=== PATIENT | female | born 1980 | race Caucasian/White ===

== ENCOUNTER → 2017-12-26 08:08 | Outpatient (CLI) | payer OTHER, SELFPAY ==
[2017-12-26 09:28] LABS: Absolute Lymphocyte Count 2.11 X10^3/ul (0.83-4.51); Absolute Neutrophil Count 4.4 X10^3/uL (2.0-7.7); Basophil# 0.01 X10^3/uL; Basophil% 0.1 % (0-1); Eosinophils% 1.4 % (0-5); Hematocrit 36.4 % (37-47); Hemoglobin 12.1 g/dl (12.0-15.0); Lymphocyte # 2.11 X10^3/ul (4.0); Lymphocyte % 29.4 % (19-41); Mean Corp Hgb Conc 33.2 g/gl (32-36); Mean Corpuscular Hgb 29.5 pg (27.0-32.0); Mean Corpuscular Volume 88.8 fL (81-99); Mean Platelet Vol. 10.5 fl (6.2-12.0); Monocyte# 0.53 X10^3/uL; Monocyte% 7.4 % (0-10); Neutrophil # 4.41 X10^3/uL (2.7-7.7); Neutrophil % 61.6 % (47-70); Platelet Count 295 K/mm3 (150-450); RBC Distribution Width CV 12.5 % (11.6-14.6); RBC Distribution Width SD 39.1 fl (35.1-43.9); White Blood Count 7.2 K/mm3 (4.4-11.0)
[2017-12-26 09:31] LABS: POSITIVE COUNT NO; POSITIVE DIFFERENTIAL NO; POSITIVE MORPHOLOGY NO
[2017-12-26 10:07] LABS: AST(SGOT) 47 U/L (15-37); Alanine Aminotransfer ALT/SGPT 31 U/L (13-56); Albumin, Serum 3.5 g/dL (3.2-5.0); Alkaline Phosphatase 64 U/L (45-117); Bilirubin, Direct < 0.05 mg/dL (0.00-0.30); Globulin 3.8 g/dL (2.2-4.2); Protein, Total 7.3 g/dL (6.4-8.2)
== END ==
PROVIDERS: Family Provider Internal Medicine; PCP Internal Medicine; Visit Provider Dermatology
DX: Z79.899 Other long term (current) drug therapy (principal); L30.1 Dyshidrosis [pompholyx]
CPT/HCPCS: 36415; 80076; 85025

== ENCOUNTER → 2018-04-12 13:48 | Outpatient (CLI) | payer OTHER, SELFPAY ==
[2018-04-18 15:11] LABS: HPV Reflexed? NOT INDICATED
== END ==
PROVIDERS: Family Provider Internal Medicine; PCP Internal Medicine; Visit Provider Obstetrics & Gynecology
DX: Z12.4 Encounter for screening for malignant neoplasm of cervix (principal)
CPT/HCPCS: 88175; G0145

== ENCOUNTER → 2018-05-08 06:56 | Outpatient (CLI) | payer OTHER, SELFPAY ==
--- NOTE | 2018-05-08 06:40 | BI_ITS ---
MAMMOGRAPHY - BILATERAL SCREENING REASON FOR EXAM: Female, 37 years old. Routine annual screening examination. PERTINENT HISTORY: Grandmother with breast cancer. TECHNIQUE: Digital bilateral breast mono (3D mammographic acquisition) in the CC and MLO projections. 2-D mediolateral oblique (MLO) and craniocaudad (CC) views of both breasts were obtained. CAD: Full Field Digital Mammography with Computer Added Detection was performed. COMPARISON: None. Baseline examination. FINDINGS: Breast Composition: The breasts are heterogeneously dense, which may obscure small masses. There are no dominant masses or suspicious calcifications. No other significant abnormalities are identified. BI/SCREENING MAMM (CAD), BILAT IMPRESSION: Negative screening mammogram. Yearly followup mammogram recommended. (A) ASSESSMENT CATEGORY: BIRADS Category 1: Negative. A letter regarding these results will be sent to the patient by the facility within 30 days. Approximately 10% of breast cancers are not detected by mammography. A normal mammogram should not delay biopsy of a clinically suspicious abnormality. [id number] Electronically Signed: Chas Rooney MD at 8:26 EDT Tel [phone], Service support ,
== END ==
PROVIDERS: Family Provider Internal Medicine; PCP Internal Medicine; Referring Provider Obstetrics & Gynecology; Visit Provider Obstetrics & Gynecology
DX: Z12.31 Encounter for screening mammogram for malignant neoplasm of breast (principal)
CPT/HCPCS: 77063; 77067

== ENCOUNTER → 2018-06-05 10:27 | Outpatient (CLI) | payer OTHER, SELFPAY ==
--- NOTE | 2018-06-05 10:45 | MRI_ITS ---
STUDY: BILATERAL BREAST MR WITHOUT AND WITH CONTRAST REASON FOR EXAM: Female, 37 years old. History of breast cancer in grandmother. Dense breasts on mammography. TECHNIQUE: Multi-sequence multi-echo imaging of both breasts was performed with a dedicated breast coil. T1-weighted and T2-weighted images were performed before the administration of contrast. T1-weighted images were also performed after the administration of 18 mL of Dotarem contrast intravenously without complications. COMPARISON: Bilateral mammograms dated May 08, 2018. FINDINGS: RIGHT BREAST: The breast tissue is fatty with no background enhancement. There are no abnormal enhancing masses or areas of non-mass enhancement in the right breast. LEFT BREAST: The breast tissue is fatty with no background enhancement. There are no abnormal enhancing masses or areas of non-mass enhancement in the left breast. There are no enlarged or abnormal lymph nodes. There is no abnormality in the visualized regions of the chest or liver. MRI/Breast w/o and/or W Cont Bilat IMPRESSION: No abnormality noted on the breast MRI examination with contrast. CATEGORY: BIRADS Category 1: Negative. A letter regarding these results will be sent to the patient by the facility within 30 days. Electronically Signed: Ricky George MD at 12:10 EDT , Service support ,
== END ==
PROVIDERS: Family Provider Internal Medicine; PCP Internal Medicine; Referring Provider Obstetrics & Gynecology; Visit Provider Obstetrics & Gynecology
DX: R92.2 Inconclusive mammogram (principal)
CPT/HCPCS: 77059; C8908

== ENCOUNTER → 2018-12-24 12:14 | Outpatient (CLI) | payer OTHER, SELFPAY ==
--- NOTE | 2018-12-24 12:21 | RAD_ITS ---
STUDY: X-RAY - PELVIS AND LEFT HIP REASON FOR EXAM: Female, 38 years old. Pain, decreased range of motion TECHNIQUE: 3 views of the pelvis and hip. COMPARISON: None. FINDINGS: There is a non-specific bowel gas pattern. Normal visualized soft tissue structures. Normal bilateral iliac wings, sacroiliac joints and visualized sacrum. Normal bilateral superior and inferior pubic rami. Normal pubic symphysis. Normal bilateral ischial tuberosities. Normal visualized femoral head. Normal acetabulum. Normal hip joint. RAD/HIP, UNI W/ Pelvis 2-3 Views IMPRESSION: Normal x-ray examination of the pelvis and hip. Electronically Signed: Oz Patiño MD at 14:51 EDT , Service support ,
== END ==
PROVIDERS: Family Provider Internal Medicine; PCP Internal Medicine; Visit Provider Internal Medicine
DX: M25.552 Pain in left hip (principal)
CPT/HCPCS: 73502

== ENCOUNTER → 2019-02-21 | Outpatient (CLI) | payer OTHER, SELFPAY ==
[2019-02-21 12:40] LABS: Absolute Lymphocyte Count 1.19 X10^3/ul (0.83-4.51); Absolute Neutrophil Count 4.3 X10^3/uL (2.0-7.7); Basophil# 0.01 X10^3/uL; Basophil% 0.2 % (0-1); Eosinophil# 0.07 X10^3/uL; Eosinophils% 1.1 % (0-5); Hematocrit 42.7 % (37-47); Hemoglobin 14.7 g/dl (12.0-15.0); Lymphocyte # 1.19 X10^3/ul (4.0); Lymphocyte % 18.4 % (19-41); Mean Corp Hgb Conc 34.4 g/gl (32-36); Mean Corpuscular Hgb 29.2 pg (27.0-32.0); Mean Corpuscular Volume 84.7 fL (81-99); Mean Platelet Vol. 10.7 fl (6.2-12.0); Monocyte# 0.86 X10^3/uL; Monocyte% 13.3 % (0-10); Neutrophil # 4.33 X10^3/uL (2.7-7.7); Neutrophil % 66.8 % (47-70); Platelet Count 241 K/mm3 (150-450); RBC Distribution Width CV 12.6 % (11.6-14.6); Red Blood Count 5.04 M/mm3 (4.2-5.4); White Blood Count 6.5 K/mm3 (4.4-11.0)
[2019-02-21 12:54] LABS: ALB/GLOB Ratio 0.8 RATIO (0.9-2.4); AST(SGOT) 56 U/L (15-37); Alanine Aminotransfer ALT/SGPT 47 U/L (13-56); Albumin, Serum 3.4 g/dL (3.2-5.0); Alkaline Phosphatase 84 U/L (45-117); Anion Gap 9 (5-15); BUN 11 mg/dL (7-18); BUN/Creat Ratio 12.1 RATIO (10-20); Chloride 108 mmol/L (98-107); Creatinine, Serum 0.91 mg/dL (0.55-1.02); EST Glomerular Filtration Rate 75 mL/min (>60); Est Glom Filt Rate - Afr Amer 90 mL/min (>60); Globulin 4.1 g/dL (2.2-4.2); Glucose 88 mg/dL (74-106); Potassium 3.4 mmol/L (3.5-5.1); Protein, Total 7.5 g/dL (6.4-8.2); Sodium Level 139 mmol/L (136-145)
[2019-02-21 12:57] LABS: POSITIVE COUNT NO; POSITIVE DIFFERENTIAL NO; POSITIVE MORPHOLOGY NO
== END | disposition home or self-care (01) ==
PROVIDERS: Family Provider Internal Medicine; PCP Internal Medicine; Referring Provider Nurse Practitioner Gerontology; Visit Provider Nurse Practitioner Gerontology
DX: R19.7 Diarrhea, unspecified (principal)
CPT/HCPCS: 36415; 80053; 82274; 83630; 85025; 87177; 87209; 87493; 87506

== ENCOUNTER 2019-03-25 14:30 | Outpatient (RCR) | payer OTHER, SELFPAY ==
--- NOTE | 2019-01-02 09:53 | HP.PTEVAL_ITS ---
Patient's Visit Information DAVID DON is a 38 year old F referred to Physical Therapy by Rachel Lo DO with a diagnosis of L hip pain. Date of Evaluation: 01/02/19 Physical Therapist: Calvin Murdock DPT, OCS, CSCS - Visit Plan Frequency: 1-3x/week Duration: 4-6 Weeks Plan: weekly to start to progress home stretches (add ITB) adn hip stabs(clamshells, SLR abd ext, SL bicycle, inchworms etc.) Increase to 3xweek for rollout and stretch and in clinic strength . - Subjective Findings: L hip has hurt forever. Went to doctor for migraines. X rays were normal. Doctor thinks it is muscle imbalance. Pain is laterally at hip , intermittent, insisdious onset but worsening frequency. Worse with burpees, worse with crossing L over Right. Sationary bike and rwoer hurt. 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 No sitting at work. Pain lingers into evening. Lying on that side at night can hurt at times. Basic ADLs are fine. They can hurt but no problem. Chiropractor has helped short term. - Pain L lateral hip Pain Intensity (Out of 10): 0 Pain Intensity Range: 0, 4 - Objective Walks normal, trasnffers normal, steps normal without pain today. - hip scour. Tightness in external rotatiors of hip, Some pain /stretchy end range of ext rotationa dn internal rotation transiently. Piriformis mod tight, ITB min tight L. 2/3 reflexes patella and achilles. Sensation LE WNL to gross light touch. Strength ankels and knees 4+/5, hip abd L 4-, ext 3+, add 5/5, flexion 4/5 all without pain in neutral position. No tenderness in soft tissue of hip. LB AROM WFL and without pain. - Goals Goal 1:: Pt I in appropriate hip stretches and strength to abolish pain. Goal Time Frame: 4-6 Weeks Goal 2:: Patient able to squat fully without pain to do burpees comfortably Goal Time Frame: 4-6 Weeks Goal 3:: Pt feel 90% back to normal with activity Goal Time Frame: 4-6 Weeks - Rehabilitation Potential Physical Therapy Diagnosis: L hip pain. Likely muscle tightness adn imbalance. Rehabilitation Potential: Good - Anticipated Interventions Patient/Client Instruction: Educate patient on: Condition For the Purpose of:: To decrease pain, To increase tolerance to activity/condition/position, To improve ability of physical actions for home/community/work/leisure Therapeutic Exercise to Include: Strength training, Flexibilty training, Passive ROM, Active ROM For the Purpose of:: To decrease pain, To increase tolerance to activity/condition/position, To improve gait and locomotor functions Thank you for the opportunity to evaluate your patient. For Medicare and Medicare HMO plans, please review the plan of care and approve it. It will need to be FAXED BACK to us at [phone] for Medicare purposes. For Medicare only, by signing this I certify the plan of care. Please let me know if there are questions or concerns regarding this plan of care. Physician Signature: Date:
--- NOTE | 2019-03-25 14:44 | HP.PTDCSUM ---
HP - PT D/C Summary It has been my pleasure to treat DAVID DON under orders from Rachel Lo DO, for the diagnosis of L hip pain for a total of 4 visit(s). Discharge Date: 03/25/19 Please see the following information for a summary of their discharge status. - Subjective Subjective: Been doing well with exercises. Current exercises. No hip pain in the last two weeks. Getting stronger. Other activities normal. No f/u scheduled. - Pain L lateral hip Pain Intensity (Out of 10): 0 - Overall Improvement % Improvement: 99 - Objective Objective/Function: Full aROM B hips without limitations. Strength L hip is 4+/5 without pain. Full squat today without pain or hesitation. Unwilling to do a burpee today. - Goals Goal 1:: Pt I in appropriate hip stretches and strength to abolish pain. Goal Progress: Goal Met Goal 2:: Patient able to squat fully without pain to do burpees comfortably Goal Progress: Goal Met Goal 3:: Pt feel 90% back to normal with activity Goal Progress: Goal Met - Plan Plan: d/c - D/C Information Discharge Comments: Normal acitviity and no pain. I in continued HEP. If there are questions or concerns regarding this patient's physical therapy, please feel free to call me at [phone]. Thank you for the referral of this patient. Sincerely, Calvin Murdock, DPT, OCS, CSCS
== END 2019-03-25 19:00 | disposition home or self-care (01) ==
LOC: PT 14:30
PROVIDERS: Family Provider Internal Medicine; PCP Internal Medicine; Referring Provider Internal Medicine; Visit Provider Internal Medicine
DX: M25.552 Pain in left hip (principal); M62.9 Disorder of muscle, unspecified
CPT/HCPCS: 97110; 97161; 97530

== ENCOUNTER → 2019-05-02 | Outpatient (CLI) | payer OTHER, SELFPAY ==
[2019-05-03 14:08] LABS: CHOLESTEROL TOTAL 230 mg/dL (100-199); HDL-C 51 mg/dL (>39); HDL-P TOTAL 35.8 umol/L (>=30.5); SMALL LDL-P 1319 nmol/L (<=527); TRIGLYCERIDES 115 mg/dL (0-149)
[2019-05-03 16:19] LABS: INSULIN RESISTANCE SCORE 65 (<=45); LDL SIZE 20.6 nm (>20.5); LDL-C 156 mg/dL (0-99); LDL-P 2319 nmol/L (<1000)
== END | disposition home or self-care (01) ==
LOC: MTLAB 10:14
PROVIDERS: Family Provider Internal Medicine; PCP Internal Medicine; Referring Provider Internal Medicine; Visit Provider Internal Medicine
DX: Z11.51 Encounter for screening for human papillomavirus (HPV) (principal); Z13.220 Encounter for screening for lipoid disorders; Z01.419 Encounter for gynecological examination (general) (routine) without abnormal findings
CPT/HCPCS: 36415; 80061; 83704

== ENCOUNTER → 2019-05-02 | Outpatient (CLI) | payer OTHER, SELFPAY ==
[2019-05-08 12:11] LABS: HPV HC, High Risk Negative (Negative)
== END | disposition home or self-care (01) ==
PROVIDERS: Family Provider Internal Medicine; PCP Internal Medicine; Referring Provider Internal Medicine; Visit Provider Internal Medicine
DX: Z11.51 Encounter for screening for human papillomavirus (HPV) (principal)
CPT/HCPCS: 87624; 88175; G0145

== ENCOUNTER → 2019-12-24 | Outpatient (CLI) | payer OTHER, SELFPAY ==
--- NOTE | 2019-12-24 16:16 | RAD_ITS ---
STUDY: X-RAY - RIGHT KNEE REASON FOR EXAM: Female, 39 years old. Right knee pain, hyperextended knee getting down off a gate today, medial knee pain, swelling posterior TECHNIQUE: 4 view(s) of the knee. COMPARISON: None. FINDINGS: Normal visualized distal femur. Normal visualized proximal tibia and fibula. Normal proximal tibiofibular articulation. There is minimal narrowing of the medial compartment. Normal lateral femorotibial compartment. On the sunrise view there is a widened appearance of the medial aspect of the patellofemoral space. There is multiple soft tissue edema. There is a small joint effusion. RAD/Knee 4 or More Views IMPRESSION: There is a relative widened appearance of medial side of the patellofemoral compartment which may represent possibility of ligamentous injury including the patellar retinaculum. There is a small joint effusion. Could consider further evaluation with MRI for further evaluation to exclude soft tissue ligamentous injury. Electronically Signed: Carina Barton MD at 4:41 EDT Tel , Service support ,
== END | disposition home or self-care (01) ==
LOC: MTRAD 16:14
PROVIDERS: PCP Internal Medicine; Referring Provider Nurse Practitioner; Visit Provider Nurse Practitioner
DX: M25.561 Pain in right knee (principal)
CPT/HCPCS: 73564

== ENCOUNTER → 2019-12-26 | Outpatient (CLI) | payer OTHER, SELFPAY ==
--- NOTE | 2019-12-26 07:28 | MRI_ITS ---
STUDY: MRI LEFT KNEE REASON FOR EXAM: Female, 39 years old. Right knee pain. Pain medially. Injury 3 days ago. TECHNIQUE: Standardized fat and water weighted pulse sequences were obtained in all 3 orthogonal planes. COMPARISON: X-ray dated December 24, 2019.. FINDINGS: Patellofemoral articular cartilage preserved. Lateral compartment articular cartilage preserved. Medial compartment grade 2 cartilage loss. Bone contusion/edema at the posterior lateral tibial corner (sagittal image 8 series 4). No acute fracture. No acute dislocation. No acute bone destruction. Anterior cruciate ligament rupture (sagittal images 14 and 15 series 4). Normal posterior cruciate ligament. Lateral meniscus intact. Medial meniscus intact. Low-grade medial collateral ligament sprain without tear. Moderate volume joint effusion. Moderate-sized leaking popliteal cyst. Mild/moderate soft tissue swelling. Normal distal semimembranosus, gracilis and semitendinosus tendons. Normal proximal tibiofibular articulation. Normal lateral collateral (fibular) ligament. Normal popliteus tendon. Normal biceps femoris tendon. Normal medial and lateral patellar retinaculum. Normal quadriceps tendon. Normal patellar tendon. Normal Hoffa''s fat pad. MRI/Lower Ext Joint Only (Routine) IMPRESSION: ACL tear with corresponding bone contusion Low-grade MCL sprain without tear Medial compartment mild cartilage loss Moderate volume joint effusion, moderate-sized leaking popliteal cyst and soft tissue swelling Electronically Signed: Calvin Warren DO at 8:22 EDT Tel , Service support ,
== END | disposition home or self-care (01) ==
LOC: MRI 07:21
PROVIDERS: PCP Internal Medicine; Referring Provider Nurse Practitioner; Visit Provider Nurse Practitioner
DX: M25.561 Pain in right knee (principal)
CPT/HCPCS: 73721

== ENCOUNTER 2020-01-15 16:30 | Outpatient (RCR) | payer OTHER, SELFPAY ==
--- NOTE | 2019-12-26 08:49 | HP.PTEVAL ---
Patient's Visit Information DAVID DON is a 39 year old F referred to Physical Therapy by MARY Fuller with a diagnosis of R knee pain. Date of Evaluation: 12/25/19 Physical Therapist: Lew Lackey DPT - Visit Plan Frequency: 2x /Week Duration: 4-6 Weeks Plan: I suspect a posssible ACL tear, of a higher level sprain of this ligament. Moslty due to nature of injury. She does not appear to have meniscal involvement. She has some medial joint line pain, but unlikely MCL is involved. Pt. to have MRI tomorrow. In the mean time I suggest ice, elevate, compression (or vaso device) to reduce edema; light ROM working on progressing extension and flexion slowly and quad activation. Pt. has ambulate as tolerated, but to avoid uneven surfaces. Will know more tomorrow after MRI. Progress pending MRI results. - Subjective Pt. is here today for her initial evaluation with diagnosis of R knee pain. Pt. hurt her knee yesterday when she was jumping over a fence and landed on her leg with her knee in hyper extension. Pt. reports feeling a loud pop with instant pain. Pt. reports feeling a little better today, but reports pain is still high and her knee feels unstable when she walks. Pt. denies N/T in her leg. Pt. is able to bear wt. on her leg, but has difficulty with walking. Pt. has been icing and taking anti inflammatories, which has been helping. Pt. is scheduled for an MRI tomorrow. 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 SHe is off today, but plans on going back to work when able. - Pain R knee Pain Intensity (Out of 10): 4 Pain Intensity Range: 2, 8 - Objective POSTURE: Pt. has slight bent knee on R side, painful to fully extend. Tends to wt. shift to L side. PALPATION: Pt. has tenderness alpong medial joint line and in MCL region. Pt. has mild tenderness at popliteal fossa. Pt. has marked edema, but non pitting. NEURO: Pt. has normal finds throughout BLEs. ROM: L Knee- full without issues. R knee- 0-20-85deg. Pt. at end ranges of motion. I am able to progress into extension, but light (empty end feel secondary to pain). MMT: Pt. has decent quad actrviation, 4/5 knee extension and flexion secondary to pain. Normal hip strength. GAIT: Pt. ambulates without AD, but has marked antalgic pattern. Pt. lacks TKE during stance and has minmal knee flexuion during swing phase. - Special Tests R Knee Chelly - Meniscus: Negative R Knee Anterior Drawer - ACL: Negative R Knee Valgus - MCL: Negative R Knee Varus - LCL: Negative Comments: Pt. very gaurded with testing (some ACL laxity, but tights HS right away) - Goals Goal 1:: LTG: Pt. to be I with HEP. Goal 2:: STG: Pt. to have increased ROM of R Knee to 0-0-120deg Goal Time Frame: 2-4 Weeks Goal 3:: STG: Pt. to have decreased edema in R LE. Goal Time Frame: 2-4 Weeks Goal 4:: LTG: Pt. to ambulate with normalized pattern without increase in symptoms. Goal Time Frame: 2-4 Weeks Goal 5:: LTG: Pt. to have increased RLE strength increased by 1/2 grade throughout effected musculature. Goal Time Frame: 4-6 Weeks - Rehabilitation Potential Physical Therapy Diagnosis: Pt. has signs and symptoms consistent with R knee pain. Pt. c/o increased medial joint line pain adn media compartment. Due to mech of injury I would suspect ACL tear without meniscal involvement, but due to HS guarded, special testing was hard to determine. She does not appear to have meniscal pain, but I would suggest ACL pathology. Hard to tell if she has a tear or a sprain of this ligament. MRI tomorrow. Rehabilitation Potential: Fair - Anticipated Interventions Patient/Client Instruction: Educate patient on: Condition, Plan of Care, Risk Factors, Benefits of Fitness Program For the Purpose of:: To improve decision making, To facilitate caregiver knowledge, To improve self management, To prevent re-injury, To improve ability to perform tasks related to life management, To improve tolerance to ADL's Therapeutic Exercise to Include: Strength training, Power training, Body mechanics, Postural training, Flexibilty training, Gait and locomotor training, Passive ROM, Active ROM For the Purpose of:: To decrease pain, To decrease swelling/inflammation, To increase ROM, To improve nutrient delivery to tissue, To increase oxygenation perfusion, To improve muscle performance and motor function, To improve ability to perform ADL's TENS: Yes Cryotherapy (ice pack, ice massage): Yes Vasopneumatic device: Yes For the Purpose of:: To decrease pain, To decrease swelling/inflammation, To increase ROM, To improve nutrient delivery to tissue, To increase oxygenation perfusion Thank you for the opportunity to evaluate your patient. For Medicare and Medicare HMO plans, please review the plan of care and approve it. It will need to be FAXED BACK to us at [phone] for Medicare purposes. For Medicare only, by signing this I certify the plan of care. Please let me know if there are questions or concerns regarding this plan of care. Physician Signature: Date:
--- NOTE | 2020-01-26 11:44 | HP.PT.NRP ---
DAVID DON was seen in my office for initial evaluation on 12/25/19. The following Plan of Care was established for this patient: Initial Frequency: 2x /Week Initial Duration: 4-6 Weeks Patient/Client Instruction: Educate patient on: Condition, Plan of Care, Risk Factors, Benefits of Fitness Program For the Purpose of:: To improve decision making, To facilitate caregiver knowledge, To improve self management, To prevent re-injury, To improve ability to perform tasks related to life management, To improve tolerance to ADL's Therapeutic Exercise to Include: Strength training, Power training, Body mechanics, Postural training, Flexibilty training, Gait and locomotor training, Passive ROM, Active ROM For the Purpose of:: To decrease pain, To decrease swelling/inflammation, To increase ROM, To improve nutrient delivery to tissue, To increase oxygenation perfusion, To improve muscle performance and motor function, To improve ability to perform ADL's TENS: Yes Cryotherapy (ice pack, ice massage): Yes Vasopneumatic device: Yes For the Purpose of:: To decrease pain, To decrease swelling/inflammation, To increase ROM, To improve nutrient delivery to tissue, To increase oxygenation perfusion This patient was last seen in our office 01/15/20. Pertinent comments regarding their Physical therapy will appear below: Pt. was treated for her knee pain. Pt. has an ACL rutpture and is undergoing surgery next week. Pt. will be DC from PT at this point in time. At this point I will be discontinuing this patient from physical therapy. I would be happy to see this patient again in the future if found appropriate by the physician. Thank you! Lew Lackey DPT
== END 2020-01-15 19:00 | disposition home or self-care (01) ==
LOC: PT 16:30
PROVIDERS: PCP Internal Medicine; Referring Provider Nurse Practitioner; Visit Provider Nurse Practitioner
DX: M25.561 Pain in right knee (principal)
CPT/HCPCS: 97016; 97110; 97161

== ENCOUNTER 2020-01-29 06:02 | Day surgery (SDC) | payer OTHER, SELFPAY ==
[2019-12-27 12:23] VITALS: BMI 36.3
--- NOTE | 2020-01-28 14:55 | PCM.HP.BLA ---
History and Physical I have re-examined the patient. There are no clinical changes since date of exam. We discussed the current risk associated COVID-19. While it is understood that there is a community spread of COVID 19 the risk of sarah COVID-19 while at [facility] is very low, however, the risk cannot be completely mitigated because of the community spread of the disease. We discussed in detail the risk of exposure to and or potential harm posed by the COVID-19 virus with having a surgery/procedure at this time versus the risk of delaying the surgery/procedure. Is not possible to know either the risk of delaying the surgery procedure or chance of getting an infection with perfect accuracy, but a joint decision was made to proceed at this time with a schedule surgery/procedure as indicated on the consent form. Patient was notified that we will need to comply with any screening or testing [facility] wishes to perform or that surgery may be delayed for any positive results. Intake Vital Signs 12/27/19 Height 5 ft 6 in 12/27/19 Weight: 225 lb 12/27/19 BMI 36.3 Intake Visit Reasons: RIGHT KNEE Chief Complaint: right knee Accompanied by: self Is patient in pain?: Yes Pain scale (1-10): 5 Allergies No Known Allergies Allergy (Verified 02/06/17 08:53) Medications Sumatriptan Succinate [Imitrex] 50 mg PO .X1 PRN 02/06/17 [History Confirmed 12/27/19] etonogestrel 0.12 mg-ethinyl estradiol 0.015 mg/24 hr vaginal ring 1 vag ring VAGINAL Q4W 12/27/19 [History Confirmed 12/27/19] PFSH Social History (Updated 12/27/19 @ 13:54 by ARETHA Zamora) Smoking Status: Never smoker HPI RIGHT KNEE: Details: Parts of this documentation were recorded by a scribe, this documentation accurately reflects the service provided and the decisions made by me, ARETHA Zamora 12/27/19 1218. DAVID DON is a 39 year old F NEW patient here today for right knee pain. 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 DOI: 12/24/2019 States that her knee keeps wanting to give out on her. She was seen at her PCP office had x-rasy and has had an MRI of the right knee. Denies any bracing. Denies numbness, tingling or other associated symptoms. She is having mostly medial/lateral and posterior pain. She is walking on her right leg. Denies numbness, tingling or other associated symptoms. ROS Musc Reports joint pain, Reports joint swelling, Reports limited joint movement, Denies numbness, Denies radiating pain into limb, Reports stiffness, Denies tingling Skin/Breast Denies redness, Denies lesions, Denies itching, Denies rash, Denies skin swelling Neuro No numbness, No tingling Ortho Exam Right Knee Skin/Wound: No erythema, No ecchymosis, Yes swelling Contralateral Normal: Yes Homans Sign: No Knee ROM: No ROM-Extension -20 to 0, No ROM-Flexion 0-140 Examination: No Med jt line tenderness, No Lat jt line tenderness, Yes Pain with flexion (Mild discomfort and tightness), Yes Pain with extention (Mild discomfort), No Chelly's Test Quad Atrophy: No Stability: NML: Posterior Drawer, NML: Varus 30, 1+: Anterior Drawer (Minor discomfort), 1+: Kali, 1+: Valgus 30 (Minor gapping and discomfort) KNEE: Inspection of the right knee show some mild generalized swelling. No major effusion. There is no erythema, ecchymosis/bruising, warmth, or any other skin changes. Patient does have discomfort with range of motion and does have some decrease in her flexion and extension. There does appear some gapping of the medial joint line with valgus stress as well as some minor discomfort. Patient does have some laxity with anterior drawer and Lockman's. Assessment & Plan Problems 1. Rupture of anterior cruciate ligament of right knee, initial encounter S83.511A 2. Injury of right knee, initial encounter S89.91XA Plan Patient presents to the office with right knee pain and swelling following an injury approximate 3 to 4 days ago. Patient was stepping down from a fence and misjudged the distance and landed with a straight knee causing it to buckle. Patient felt immediate pain along with evident pop/Snap. She did have swelling noted shortly after and has had pains and problems ever since. Patient did have an x-ray and a MRI as well. MRI results were reviewed with patient already showing an evident ACL rupture. There is not appear to be any significant meniscal damage at this time and her physical exam actually does support this having no pains really in the joint line or with Chelly's. Her pains on the medial aspect of more over the origin of the MCL. At this time we did discuss patient's options which to include surgical intervention at this time. 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 She at this time would like to have this fixed. We did discuss the ACL reconstruction surgery in detail. We discussed that really a lot of recovery will depend also on the meniscus which according to the MRI do not show evident damage. We did discuss however that we initially will evaluate the ACL as well as the meniscus to determine whether they will need repaired or not. We did discuss types of graft used including allo- versus autograft. Risks and benefits of the procedure were discussed in office with patient in detail and consent was signed in office today. Patient does take a control and therefore will have to stop this control for 4-6 weeks prior to surgery. She is already doing some pre-hab and can continue to do so working on swelling, and range of motion. Patient was given a brace today to provide her with some support as well. She is not using crutches at this time and would like to continue not using crutches. I would like her to use crutches if she has any instability of the knee. Patient was given antimicrobial scrub to be used the night before the morning of her surgery. She will be notified by the office of the day of her surgery and the surgery apartment for PAT testing. Possible that we will need to do another consent if we wait 6 weeks for her to be off of her control. She can notify our office if she has any other concerns complaints in the meantime. This note was generated with [employer]ook[employer] software. It may contain incorrect words, spelling, and punctuation that were not noted in checking the note before signing. Coding Level of Care Code Off vis,new,level 3 Diagnoses Rupture of anterior cruciate ligament of right knee, initial encounter S83.511A ??Encounter type: initial encounter Injury of right knee, initial encounter S89.91XA ??Encounter type: initial encounter
[2020-01-29] VITALS (9 sets, daily range): BP systolic 118–133; BP diastolic 66–94; PULSE 48–114; RESP 16–20; TEMP 36.2–37.4; O2SAT 94–100; BMI 38.0
[2020-01-29 06:31] LABS: Internal QC Validated? YES +Cl - CLEAR BKGD; Pregnancy, Urine Negative Negative
[2020-01-29] MEDS: Lactated Ringers 1,000 ML 100 ML IV ×3 (06:50→11:23)
[2020-01-29] MEDS: Epinephrine (1 mg/ml) 1 MG/ML VIAL (07:30)
[2020-01-29] MEDS: Cefazolin 2 GM in 0.9% Normal Saline 100 ML IV (07:30)
--- NOTE | 2020-01-29 07:47 | PCM.DC.ORTHO ---
Discharge Diet: No Restrictions - Remove dressings postop day 4 and apply Band-Aids to incision sites, may shower and get incision wet postop day 4, toe touch weight-bear operative leg, call with increased pain numbness tingling or further issues arise, call if calf pain or calf swelling, take pain medications as prescribed do not take any other Tylenol products, follow-up in [address], ankle pumps, ice, elevate toes above nose Discharge Activity: May Not Drive May shower in (days): 1 Ice area for (Minutes): 20 - Every hour while awake. Weight Bearing Status: Weight bearing as tolerated Keep extremity elevated above heart level: Operative Extremity Call your doctor if your incision/area has: Continuous Slow Oozing, Sudden Increased Bleeding, Increased Pain/ Swelling, Increased Redness, Foul Smelling Discharge Call your doctor if you observe: Fever of 101 or Higher, Coldness, Increased Pain, Numbness or Tingling, Change in Color, Calf discomfort Allergies/Adverse Reactions: Allergies No Known Allergies Allergy (Verified 01/22/20 08:54) Medications to take at Discharge Sumatriptan Succinate [Imitrex] 50 mg PO .X1 PRN PRN 02/06/17 etonogestrel 0.12 mg-ethinyl estradiol 0.015 mg/24 hr vaginal ring 1 vag ring VAGINAL Q4W 12/27/19 Dupilumab [Dupixent] 200 mg SQ 01/22/20 Loratadine [Claritin] 10 mg PO DAILY PRN 01/22/20 Hydrocodone Bitart/Apap 5-325 [[place] 5MG-325MG] 1 - 2 tablet PO Q6H PRN PRN 5 Days #40 tablet 01/29/20 Ondansetron [Zofran] 8 mg PO Q8H PRN PRN #20 tab 01/29/20 The following prescriptions were given: Hydrocodone Bitart/Apap 5-325 [[place] 5MG-325MG] 1 - 2 tablet PO Q6H PRN PRN 5 Days #40 tablet PRN Reason: Pain Transmission Status: Sent to [facility] Ondansetron [Zofran] 8 mg PO Q8H PRN PRN #20 tab PRN Reason: Nausea Transmission Status: Pending to [facility] Primary Care Physician: Teresita,Rachel, DO [Primary Care Provider] - Test Results: Test results from this visit will be discussed in further detail at your follow-up appointment, if applicable. Please Follow Up With: Aruna Liu, - [phone]
--- NOTE | 2020-01-29 07:48 | PCM.OPRPT ---
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 Immediate pain and instability and was seen by my physician's mobile unit assistant. Patient has continued stability MRI confirms ACL tear risk benefits and alternatives were discussed with patient. Risk include but not limited to blood loss, blood clot, infection, neurovascular, failure procedure, loss of life and loss of limb. 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 We discussed the current risk associated COVID-19. While it is understood that there is a community spread of COVID 19 the risk of sarah COVID-19 while at [facility] is very low, however, the risk cannot be completely mitigated because of the community spread of the disease. We discussed in detail the risk of exposure to and or potential harm posed by the COVID-19 virus with having a surgery/procedure at this time versus the risk of delaying the surgery/procedure. Is not possible to know either the risk of delaying the surgery procedure or chance of getting an infection with perfect accuracy, but a joint decision was made to proceed at this time with a schedule surgery/procedure as indicated on the consent form. Patient was notified that we will need to comply with any screening or testing [facility] wishes to perform or that surgery may be delayed for any positive results. Also discussed with the patient that I have not been tested there is risk associated with the fact that I have not been tested however admit this currently at this time asymptomatic. Operative note Patient seen and examined preoperative holding area. Right knee was marked. Patient brought to the operating room placed supine on the operating table. Signed, anesthesia, antibiotics were administered. The operative limb was prepped and draped in usual sterile fashion with a tourniquet around her upper thigh. All bony prominences well-padded and SCDs placed on contralateral limb. Marked out our bony landmarks for incisions for anterior lateral anteromedial portal placements. Timeout was performed. We then elevated the leg exsanguinated and tourniquet was raised her pressure of 275 torr. We then used an 11 blade creator anterior lateral portal. Begin our diagnostic arthroscopy. The patellofemoral joint was unremarkable. We then moved to the anteromedial joint line. Created an anteromedial portal under direct visualization. We were then to resect back the thickened synovium anterior medial anterior lateral. We then pulled on the medial meniscus which was intact and stable probing. The medial femoral condyle middle medial medial tibial plateau were intact. The ACL was top was torn within the notch PCL was intact. The lateral meniscus was intact and stable to probing. The lateral femoral condyle lateral tibial plateau were intact and stable probing. We then debrided back the stump of the ACL and debrided back in the notch we did perform a notchplasty as she had a narrow notch. We then prepared our allograft graft link on the back table in standard technique using anterior tib. We measured to be 9 mm in diameter. This was placed on tension. We then in standard technique use a flip cutter for the femoral side after marking out our lateral aspect of her IT band distally make it may be a incision dissect down with hemostats down to bone and then placed our flip cutter at the ACL footprint within the notch. We then drilled back to 25. We then irrigated bony debris from the knee flexed it out. We then placed our suture. We then drilled our tibial tunnel under standard technique made incision anteromedially and dissect down with hemostats also in place our trocar. We then drilled back about 30. I get it set at 9. We then irrigated the knee with copious muscle sterile saline in order to get any bony debris out of the knee. We then brought the graft on the back table in standard technique flipped the button on the lateral femoral cortex and then brought the graft into the femoral tunnel. We then brought the graft down through the tibial tunnel and then ensure that there is no impingement anteriorly there was none in extension. We then cycled the graft. We then placed a button on the tibial anterior tibial cortex performing a reverse drawer and the knee was bent about 30 degrees. We then brought the pulled on the the sutures from the femoral side again to further bring the graft into the tunnel on the femoral side which we did. We then probed the graft and we had a good graft fixation. We then irrigated the knee with copious muscle sterile saline. The incision was closed with the tibial incision was closed with Vicryl and a running 4 Monocryl the portals were closed with interrupted nylon and the lateral femoral distal incision was closed with Vicryl and nylon. Sterile dressings were applied and a brace was applied to the right lower extremity. Trach was deflated for total working time of 70 minutes. Patient tolerated procedure well no complication transferred recovery room in stable condition. Postoperative note Toe-touch weightbearing right leg Follow-up on Monday with Kavin for dressing change and brace initiation brace change Call with increased pain numbness tingling further issues arises Patient's been off her control for a month she will remain off of her control for at least 6 weeks Hospital pharmacy has prescriptions We will give pictures in 2 weeks This note was generated with [employer] dictation software. It may contain incorrect words, spelling, and punctuation that were not noted in checking the note before signing.
[2020-01-29] MEDS: Mupirocin Ointment 22gm Tube 1 APPLIC (09:38)
== END 2020-01-29 12:49 | disposition home or self-care (01) ==
LOC: SDC 06:02 → AC 06:03
PROVIDERS: Anesthesiology; PCP Internal Medicine; Referring Provider Orthopaedic Surgery; Visit Provider Orthopaedic Surgery
PROC: (CPT 29888; principal; 2020-01-29 07:10)
DX: S83.511A Sprain of anterior cruciate ligament of right knee, initial encounter (principal); K21.9 Gastro-esophageal reflux disease without esophagitis; G43.909 Migraine, unspecified, not intractable, without status migrainosus; Z11.59 Encounter for screening for other viral diseases; Z79.899 Other long term (current) drug therapy; X50.1XXA Overexertion from prolonged static or awkward postures, initial encounter; Y93.89 Activity, other specified; Y92.008 Other place in unspecified non-institutional (private) residence as the place of occurrence of the external cause; Y99.8 Other external cause status
CPT/HCPCS: 01400; 29888; 81025; 87635; C1713; G2023; J7120; J2405; U0003

== ENCOUNTER 2020-05-11 09:00 | Outpatient (RCR) | payer OTHER, SELFPAY ==
[2020-02-11 09:44] VITALS: BMI 38.0
--- NOTE | 2020-02-12 11:56 | HP.PTEVAL ---
Patient's Visit Information DAVID DON is a 39 year old F referred to Physical Therapy by Dr. Aruna Liu DO with a diagnosis of R ACL repair DOS: 01/29/20. Date of Evaluation: 02/12/20 Physical Therapist: Lew Lackey DPT - Visit Plan Frequency: 2-3x /Week Duration: 6 Weeks Plan: Start with quad sets, knee extension ROM, progressing knee flexion ROM (Per protocal), hip strengthening. Progress per protocol. May use NMES and ice/vaso for edema control. - Subjective Pt. is here today for her initial evaluation with diagnosis of R ACL repair DOS: 01/29/20. Pt. was seen for prehab working on strengthening and ROM. Pt. injury occured while jumping over a fence, with R knee hyper extension. Pt. reports overall doing well, PWBing with crutches. Pt. is locked out at -10 extension, allowed to open up in sitting. Pt. is driving. Pt. reports overall doing well. Pt. denies fever, chills, double vision. Pt. denies calf pain, but does report some thigh tightness. Pt. reports not needing to take prescription pain meds, but has migrated to OTC meds. I talked to her about taking her meds as needed to allow for her to push through some ROM. Pt. consents. 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 Pt. is hopeful to increase her ROM and strength in order to get back to all work and recreational actvitieis without limitations. - Pain R knee Pain Intensity (Out of 10): 2 Pain Intensity Range: 0, 4 Comment: Achy - Objective POSTURE: Pt. has sligth knee flexion in stance, PWB with crutches. PALPATION: Pt. has normal healing incision, no signs of infection. Pt. has marked edema (non pitting). Girth (above- 55cm, patella- 49cm, below 47cm) R Knee. NEURO: normal sensation, nromal DTR bilaterally. ROM: R knee active: 0-10-73deg. PROM: 0-3-81deg- tightness as limiting factor. MMT: Pt. has some quad actiation with quad sets, SLR- 10deg lag. HIp abd 4/5, hip ext 4/5. GAIT: Pt. ambulates with crutches with PWB with proper use. Negotiates steps with crutches with proper use. - Goals Goal 1:: LTG: Pt. to be I with HEP. Goal Time Frame: 4-6 Weeks Goal 2:: STG: Pt. to have 0-0-120deg of R knee AROM. Goal Time Frame: 2 Weeks Goal 3:: LTG: Pt. to have 0-0-135deg of R knee AROM Goal Time Frame: 2-4 Weeks Goal 4:: STG: Pt. to have good quad set and complete SLR without extnsor lag x10 reps. Goal Time Frame: 2-4 Weeks Goal 5:: STG: Pt. to have no pain at rest allowing her to sleep throughout the night without limitations. Goal Time Frame: 2 Weeks Goal 6:: LTG: PT. to have decreased edema in RLE with equal girth at patella and suprapatellar regions to LLE. Goal Time Frame: 2-4 Weeks - Rehabilitation Potential Physical Therapy Diagnosis: Pt. has signs and symptoms consistent with R ACL repair. Pt. is PWB and has marked hypomobiity as expected. Pt. would benefit from PT to work on ROM, pain control, edema control, progressing to strengthenging and functional mobility once ready. Rehabilitation Potential: Excellent - Anticipated Interventions Patient/Client Instruction: Educate patient on: Condition, Plan of Care, Risk Factors, Benefits of Fitness Program For the Purpose of:: To improve self management, To prevent re-injury, To improve ability to perform tasks related to life management, To improve tolerance to ADL's Therapeutic Exercise to Include: Strength training, Power training, Endurance training, Body mechanics, Postural training, Flexibilty training, Gait and locomotor training, Passive ROM, Active ROM, Dynamic Lumbar Stabilization For the Purpose of:: To decrease pain, To decrease swelling/inflammation, To increase ROM, To improve nutrient delivery to tissue, To increase oxygenation perfusion, To improve muscle performance and motor function, To improve ability to perform ADL's, To increase tolerance to activity/condition/position, To improve performance and independence with ADL's, To improve gait and locomotor functions, To improve health of tissue, To decrease soft tissue restriction, To increase flexibility/ROM Manual Therapy Techniques to Include: Massage, Mobilization, Passive ROM, Soft tissue mobilization For the Purpose of:: To decrease pain, To decrease swelling/inflammation, To increase ROM, To improve nutrient delivery to tissue, To improve muscle performance and motor function, To improve health of tissue, To decrease soft tissue restriction, To increase flexibility/ROM IF ES: Yes - NMES for quad activation Cryotherapy (ice pack, ice massage): Yes Vasopneumatic device: Yes For the Purpose of:: To decrease pain, To decrease swelling/inflammation, To increase ROM Thank you for the opportunity to evaluate your patient. For Medicare and Medicare HMO plans, please review the plan of care and approve it. It will need to be FAXED BACK to us at [phone] for Medicare purposes. For Medicare only, by signing this I certify the plan of care. Please let me know if there are questions or concerns regarding this plan of care. Physician Signature: Date:
--- NOTE | 2020-03-12 11:09 | HP.PTREVAL_ITS ---
Dr. Aruna Liu, DO, It has been my pleasure to treat DAVID DON over the last 12 visits for R ACL repair DOS: 01/29/20. Please see the progress note below for an update on the physical therapy plan of care! Subjective: Pt. reports overall doing well. my quad was pretty sore after last time, but I am okay today. Pt. report seeing physician who wants her to contiune to work on ROM, both extnsion and flexion. Potential RTW Mar 30. Objective/Function: AROM: R knee 0-0-110deg after stretching. PROM: R knee 0-0-117deg. Sore at end range of stretching. Pt. initially had difficulty getting into end range extension, but imrpoved after stretching. Pt. is able to complete SLR x10 with good TKE. Pt. is now full WBing open to 90deg. Cont. to progress end range of motion, and progress CKC strengthening as tolerated. Plan Plan: Cont with plan - emphasis on knee flexion, along with strength. Goals Goal 1:: LTG: Pt. to be I with HEP. Goal Time Frame: 4-6 Weeks Goal Progress: Goal Met Goal 2:: STG: Pt. to have 0-0-120deg of R knee AROM. Goal Time Frame: 2 Weeks Goal Progress: Progressing Goal 3:: LTG: Pt. to have 0-0-135deg of R knee AROM Goal Time Frame: 2-4 Weeks Goal Progress: Progressing Goal 4:: STG: Pt. to have good quad set and complete SLR without extnsor lag x10 reps. Goal Time Frame: 2-4 Weeks Goal Progress: Goal Met Goal 5:: STG: Pt. to have no pain at rest allowing her to sleep throughout the night without limitations. Goal Time Frame: 2 Weeks Goal Progress: Goal Met Goal 6:: LTG: PT. to have decreased edema in RLE with equal girth at patella and suprapatellar regions to LLE. Goal Time Frame: 2-4 Weeks Goal Progress: Progressing Anticipated Interventions Patient/Client Instruction: Educate patient on: Condition, Plan of Care, Risk F actors, Benefits of Fitness Program For the Purpose of:: To improve self management, To prevent re-injury, To improve ability to perform tasks related to life management, To improve tolerance to ADL's Therapeutic Exercise to Include: Strength training, Power training, Endurance training, Body mechanics, Postural training, Flexibilty training, Gait and locomotor training, Passive ROM, Active ROM, Dynamic Lumbar Stabilization For the Purpose of:: To decrease pain, To decrease swelling/inflammation, To increase ROM, To improve nutrient delivery to tissue, To increase oxygenation perfusion, To improve muscle performance and motor function, To improve ability to perform ADL's, To increase tolerance to activity/condition/position, To improve performance and independence with ADL's, To improve gait and locomotor functions, To improve health of tissue, To decrease soft tissue restriction, To increase flexibility/ROM Manual Therapy Techniques to Include: Massage, Mobilization, Passive ROM, Soft tissue mobilization For the Purpose of:: To decrease pain, To decrease swelling/inflammation, To increase ROM, To improve nutrient delivery to tissue, To improve muscle performance and motor function, To improve health of tissue, To decrease soft tissue restriction, To increase flexibility/ROM IF ES: Yes - NMES for quad activation Cryotherapy (ice pack, ice massage): Yes Vasopneumatic device: Yes For the Purpose of:: To decrease pain, To decrease swelling/inflammation, To increase ROM Please do not hesitate to contact me at [phone] by phone or if you have questions or concerns regarding this new plan of care! Sincerely, Lew Lackey DPT
--- NOTE | 2020-04-01 11:32 | HP.PTREVAL ---
Dr. Aruna Liu, DO, It has been my pleasure to treat DAVID DON over the last 20 visits for R ACL repair DOS: 01/29/20. Please see the progress note below for an update on the physical therapy plan of care! Subjective: Pt. reports overall doing well. Pt. worked 2 12 hours shifts without issues. She reports being HEP compliant. She wore her brace for the work days. Objective/Function: Pt. is doing well. She tolerated work really well. Pt. reported minimal swelling. Pt. had 125deg of knee flexon today and still has full knee extension. Pt. is progressing with strengthening as expected. Pt. would benefit from continued to strengthening to increase overall hip and knee stability. Plan Plan: Try descending stairs or step next visit. Goals Goal 1:: LTG: Pt. to be I with HEP. Goal Time Frame: 4-6 Weeks Goal Progress: Goal Met Goal 2:: STG: Pt. to have 0-0-120deg of R knee AROM. Goal Time Frame: 2 Weeks Goal Progress: Progressing Goal 3:: LTG: Pt. to have 0-0-135deg of R knee AROM Goal Time Frame: 2-4 Weeks Goal Progress: Progressing Goal 4:: STG: Pt. to have good quad set and complete SLR without extnsor lag x10 reps. Goal Time Frame: 2-4 Weeks Goal Progress: Goal Met Goal 5:: STG: Pt. to have no pain at rest allowing her to sleep throughout the night without limitations. Goal Time Frame: 2 Weeks Goal Progress: Goal Met Goal 6:: LTG: PT. to have decreased edema in RLE with equal girth at patella and suprapatellar regions to LLE. Goal Time Frame: 2-4 Weeks Goal Progress: Progressing Anticipated Interventions Patient/Client Instruction: Educate patient on: Condition, Plan of Care, Risk Factors, Benefits of Fitness Program For the Purpose of:: To improve self management, To prevent re-injury, To improve ability to perform tasks related to life management, To improve tolerance to ADL's Therapeutic Exercise to Include: Strength training, Power training, Endurance training, Body mechanics, Postural training, Flexibilty training, Gait and locomotor training, Passive ROM, Active ROM, Dynamic Lumbar Stabilization For the Purpose of:: To decrease pain, To decrease swelling/inflammation, To increase ROM, To improve nutrient delivery to tissue, To increase oxygenation perfusion, To improve muscle performance and motor function, To improve ability to perform ADL's, To increase tolerance to activity/condition/position, To improve performance and independence with ADL's, To improve gait and locomotor functions, To improve health of tissue, To decrease soft tissue restriction, To increase flexibility/ROM Manual Therapy Techniques to Include: Massage, Mobilization, Passive ROM, Soft tissue mobilization For the Purpose of:: To decrease pain, To decrease swelling/inflammation, To increase ROM, To improve nutrient delivery to tissue, To improve muscle performance and motor function, To improve health of tissue, To decrease soft tissue restriction, To increase flexibility/ROM IF ES: Yes - NMES for quad activation Cryotherapy (ice pack, ice massage): Yes Vasopneumatic device: Yes For the Purpose of:: To decrease pain, To decrease swelling/inflammation, To increase ROM Please do not hesitate to contact me at [phone] by phone or if you have questions or concerns regarding this new plan of care! Sincerely, KAY ArthurT
--- NOTE | 2020-04-21 09:34 | HP.PTREVAL ---
Dr. Aruna Liu, DO, It has been my pleasure to treat DAVID DON over the last 25 visits for R ACL repair DOS: 01/29/20. Please see the progress note below for an update on the physical therapy plan of care! Subjective: Pt. reports being 85% better overall. I still like I need to be stronger. Objective/Function: ROM: AAROM- 0-0-124dg, PROM 0-0-126deg. MMT 5/5 throughout, except 4+/5 hip abd. gait: good pattern, slight hip drop. stairs; normal, reciprical pattern, mild increase NW with descending. OPverall doing well. Plan Plan: Try descending stairs or step next visit. Goals Goal 1:: LTG: Pt. to be I with HEP. Goal Time Frame: 4-6 Weeks Goal Progress: Goal Met Goal 2:: STG: Pt. to have 0-0-120deg of R knee AROM. Goal Time Frame: 2 Weeks Goal Progress: Progressing Goal 3:: LTG: Pt. to have 0-0-135deg of R knee AROM Goal Time Frame: 2-4 Weeks Goal Progress: Progressing Goal 4:: STG: Pt. to have good quad set and complete SLR without extnsor lag x10 reps. NEW GOAL: 5/5 throughotu RLE strength. Goal Time Frame: 2-4 Weeks Goal Progress: Goal Met Goal 5:: STG: Pt. to have no pain at rest allowing her to sleep throughout the night without limitations. Goal Time Frame: 2 Weeks Goal Progress: Goal Met Goal 6:: LTG: PT. to have decreased edema in RLE with equal girth at patella and suprapatellar regions to LLE. Goal Time Frame: 2-4 Weeks Goal Progress: Progressing Anticipated Interventions Patient/Client Instruction: Educate patient on: Condition, Plan of Care, Risk Factors, Benefits of Fitness Program For the Purpose of:: To improve self management, To prevent re-injury, To improve ability to perform tasks related to life management, To improve tolerance to ADL's Therapeutic Exercise to Include: Strength training, Power training, Endurance training, Body mechanics, Postural training, Flexibilty training, Gait and locomotor training, Passive ROM, Active ROM, Dynamic Lumbar Stabilization For the Purpose of:: To decrease pain, To decrease swelling/inflammation, To increase ROM, To improve nutrient delivery to tissue, To increase oxygenation perfusion, To improve muscle performance and motor function, To improve ability to perform ADL's, To increase tolerance to activity/condition/position, To improve performance and independence with ADL's, To improve gait and locomotor functions, To improve health of tissue, To decrease soft tissue restriction, To increase flexibility/ROM Manual Therapy Techniques to Include: Massage, Mobilization, Passive ROM, Soft tissue mobilization For the Purpose of:: To decrease pain, To decrease swelling/inflammation, To increase ROM, To improve nutrient delivery to tissue, To improve muscle performance and motor function, To improve health of tissue, To decrease soft tissue restriction, To increase flexibility/ROM IF ES: Yes - NMES for quad activation Cryotherapy (ice pack, ice massage): Yes Vasopneumatic device: Yes For the Purpose of:: To decrease pain, To decrease swelling/inflammation, To increase ROM Please do not hesitate to contact me at [phone] by phone or if you have questions or concerns regarding this new plan of care! Sincerely, Lew Lackey DPT
== END 2020-05-11 19:00 | disposition home or self-care (01) ==
LOC: PT 09:00
PROVIDERS: PCP Internal Medicine; Referring Provider Orthopaedic Surgery; Visit Provider Orthopaedic Surgery
DX: Z98.890 Other specified postprocedural states (principal)
CPT/HCPCS: 97016; 97110; 97161; 97164

== ENCOUNTER → 2020-09-07 09:56 | Outpatient (CLI) | payer OTHER, SELFPAY ==
--- NOTE | 2020-09-07 09:59 | RAD_ITS ---
STUDY: X-RAY CHEST REASON FOR EXAM: Female, 39 years old. Rash, swelling, and redness bilateral ankles over the last few days -- no injury TECHNIQUE: PA and lateral views of the chest. COMPARISON: None. FINDINGS: The lungs are clear and expanded. There is no demonstrated pleural abnormality. Normal size heart. Normal mediastinum and melanie. Normal visualized pulmonary arteries. Normal visualized aortic arch and descending thoracic aorta. There are mild degenerative changes of the visualized thoracic spine. Mild dextroscoliosis. Normal visualized ribs, clavicles, and shoulders. There is no demonstrated abnormality of the visualized soft tissue structures of the upper abdomen. RAD/Chest PA and Lateral IMPRESSION: No acute abnormality is seen. Electronically Signed: Chas Rooney MD at 15:41 EST , Service support ,
[2020-09-07 10:05] LABS: Lyme Ab Screen Interpretation REF LAB
[2020-09-07 12:52] LABS: Erythrocyte Sedimentation Rate 59 mm/hr (0-30)
[2020-09-07 12:54] LABS: Absolute Neutrophil Count 6.3 X10^3/uL (2.0-7.7); Basophil# 0.03 X10^3/uL; Basophil% 0.3 % (0-1); Eosinophil# 0.33 X10^3/uL; Eosinophils% 3.8 % (0-5); Hematocrit 38.6 % (37-47); Lymphocyte % 17.2 % (19-41); Mean Corp Hgb Conc 33.7 g/dL (32-36); Mean Corpuscular Hgb 29.4 pg (27.0-32.0); Mean Corpuscular Volume 87.3 fL (81-99); Mean Platelet Vol. 11.2 fl (6.2-12.0); Monocyte# 0.58 X10^3/uL; Monocyte% 6.6 % (0-10); NRBC Flagged by Analyzer 0 % (0-5); Neutrophil # 6.27 X10^3/uL (2.7-7.7); Neutrophil % 71.8 % (47-70); Platelet Count 307 K/mm3 (150-450); RBC Distribution Width CV 11.6 % (11.6-14.6); RBC Distribution Width SD 37.2 fl (35.1-43.9); Red Blood Count 4.42 M/mm3 (4.2-5.4); White Blood Count 8.7 K/mm3 (4.4-11.0)
[2020-09-07 13:31] LABS: ALB/GLOB Ratio 0.8 RATIO (0.9-2.4); AST(SGOT) 56 U/L (15-37); Alanine Aminotransfer ALT/SGPT 51 U/L (13-56); Albumin, Serum 3.4 g/dL (3.2-5.0); Alkaline Phosphatase 93 U/L (45-117); Anion Gap 9 (5-15); BUN 11 mg/dL (7-18); BUN/Creat Ratio 15.1 RATIO (10-20); Calcium,Total 9.2 mg/dL (8.5-10.1); Chloride 107 mmol/L (98-107); Creatinine, Serum 0.73 mg/dL (0.55-1.02); EST Glomerular Filtration Rate 95 mL/min (>60); Est Glom Filt Rate - Afr Amer 115 mL/min (>60); Globulin 4.1 g/dL (2.2-4.2); Glucose 118 mg/dL (74-106); Potassium 3.8 mmol/L (3.5-5.1); Protein, Total 7.5 g/dL (6.4-8.2); Rheumatoid Factor < 10.0 IU/mL (<15); Sodium Level 139 mmol/L (136-145); Thyroid Stim Hormone (TSH) 0.69 uIU/mL (0.358-3.74)
[2020-09-09 03:07] LABS: Angiotensin Convert Enzyme 29 U/L (14-82); Cytoplasmic Ab (C-ANCA) <1:20 titer (Neg:<1:20)
[2020-09-09 15:29] LABS: CCP IgG Antibodies 7 units (0-19); Lyme Scn Total Ab w/Rflx <0.91 ISR (0.00-0.90); Perinuclear Ab (P-ANCA) <1:20 titer (Neg:<1:20)
[2020-09-09 15:49] LABS: ANTINUCLEAR ANTIBODIES DIRECT Negative (Negative)
== END ==
PROVIDERS: PCP Internal Medicine; Referring Provider Nurse Practitioner; Visit Provider Nurse Practitioner
DX: R21 Rash and other nonspecific skin eruption (principal)
CPT/HCPCS: 36415; 71046; 80053; 82164; 84443; 85025; 85652; 86038; 86140; 86200; 86256; 86431; 86618

== ENCOUNTER → 2020-09-11 15:44 | Outpatient (CLI) | payer OTHER, SELFPAY ==
[2020-09-11 18:15] LABS: Erythrocyte Sedimentation Rate 47 mm/hr (0-30)
== END ==
PROVIDERS: PCP Internal Medicine; Visit Provider Nurse Practitioner
DX: R79.82 Elevated C-reactive protein (CRP) (principal); R70.0 Elevated erythrocyte sedimentation rate
CPT/HCPCS: 36415; 85652; 86140

== ENCOUNTER 2021-09-15 09:30 | Outpatient (RCR) | payer OTHER, SELFPAY ==
--- NOTE | 2020-09-02 16:33 | MASS.EVAL ---
Massage Therapy Evaluation: Initial Evaluation Date: 09/02/2020 SUBJECTIVE: Afshan is a 39 year old female who was referred to the [facility] for a massotherapy evaluation by Dr. Lo with the diagnosis of migraines. She presents today with the symptoms of pain, stiffness and tension in the neck, mid back, low back, hips, and lower legs. Afshan reports having a past medical history of headaches and pain in her neck and back. She reports having minimal improvement with exercise and stretching over the last few months. OBJECTIVE: Upon observation Afshan has some posture issues with her head and shoulders forward from the neutral position in sitting and standing. After examination and palpation, I found Afshan to have high muscle tension with tenderness and myofascial restrictions in her sub occipitals, levator scapulae, trapezius, rhomboids, scalenes, and thoracic paraspinals. Her QL?s, lumbar paraspinals, piriformis, glute medius and minimus all were very tight with fascial restrictions, tender points and trigger points. The first treatment consisted of a one hour massage to her full body with myofascial release, muscle stripping, trigger point compression techniques, and cervical manual traction. ASSESSMENT: I feel that Afshan is a good candidate for massotherapy at this time. She had a favorable response to the first treatment with reduction in her muscle aches, pain and tension. She also had improvement in her cervical flexibility and low back flexibility. PLAN: The plan of care was reviewed with the patient. The patient is to be seen on an as needed basis for a total of ten sessions with the recommendation of once every month for a one hour treatment.
--- NOTE | 2021-07-29 18:42 | MASS.DISCH ---
Massage Therapy Discharge Summary: Discharge Date: 07/29/2021 Afshan was seen for a massotherapy evaluation on 09/02/2020 with the diagnosis of migraines. She was treated with two sessions of massage therapy consisting of deep pressure soft tissue techniques, myofascial release and trigger point compression to his cervical, thoracic, lower back and hips. Afshan responded well to the therapy by reporting decreased tension and pain throughout her neck, shoulders, lower back, lower extremities and hips. Her goals for therapy were met throughout the treatment sessions. At this time this patient is being discharged from our care at [facility] facility.
== END 2021-09-15 17:23 | disposition home or self-care (01) ==
LOC: MASS 09:30
PROVIDERS: PCP Internal Medicine; Referring Provider Internal Medicine; Visit Provider Internal Medicine
DX: G43.109 Migraine with aura, not intractable, without status migrainosus (principal)
CPT/HCPCS: 97124

== ENCOUNTER → 2022-05-06 | Outpatient (CLI) | payer OTHER, SELFPAY ==
[2022-05-06 14:16] LABS: Thyroid Stim Hormone (TSH) 1.08 uIU/mL (0.358-3.74)
== END | disposition home or self-care (01) ==
LOC: LAB 12:51
PROVIDERS: PCP Internal Medicine; Referring Provider Internal Medicine; Visit Provider Internal Medicine
DX: R53.83 Other fatigue (principal)
CPT/HCPCS: 36415; 84443

== ENCOUNTER → 2022-10-27 | Outpatient (CLI) | payer OTHER, SELFPAY ==
--- NOTE | 2022-10-27 07:06 | BI_ITS ---
MAMMOGRAPHY - BILATERAL SCREENING 3-D TOMOSYNTHESIS REASON FOR EXAM: Female, 42 years old. Routine screening PERTINENT HISTORY: Grandmother with breast cancer.. TECHNIQUE: 2-D mammograms and 3-D Tomosynthesis of the breast (s) were performed. CAD was performed. COMPARISON: 06/05/2018 FINDINGS: The breast composition is heterogeneously dense that can obscure small breast masses. Scattered benign calcifications are seen. No dense spiculated masses or suspicious microcalcifications are identified. No architectural distortion is identified. There is no skin thickening or retraction. There has been no significant change since the prior study. BI/SCRN MAMM (CAD)W/MYRA BILAT IMPRESSION: No mammographic signs of malignancy. Routine yearly mammograms recommended. ASSESSMENT CATEGORY: BIRADS Category 2: Benign. A letter regarding these results will be sent to the patient by the facility within 30 days. FOLLOW UP RECOMMENDATION: Yearly follow up mammogram recommended. (A) Approximately 10% of breast cancers are not detected by mammography. A normal mammogram should not delay biopsy of a clinically suspicious abnormality. Electronically Signed: Oz Patiño MD at 7:58 EDT ,
== END | disposition home or self-care (01) ==
LOC: OPBI 06:30
PROVIDERS: PCP Internal Medicine; Referring Provider Internal Medicine; Visit Provider Internal Medicine
DX: Z12.31 Encounter for screening mammogram for malignant neoplasm of breast (principal)
CPT/HCPCS: 77063; 77067

== ENCOUNTER → 2023-05-13 | Outpatient (CLI) | payer OTHER, SELFPAY ==
--- NOTE | 2023-05-13 18:03 | CT_ITS ---
STUDY: CT BRAIN WITHOUT CONTRAST REASON FOR EXAM: Female, 42 years old. Migraine with aura RADIATION DOSAGE (If Supplied By Facility): CTDIvol = ( 44.99 ) mGy, DLP = ( 796.11 ) mGycm TECHNIQUE: Transaxial CT imaging of the brain was performed without administration of intravenous contrast material. Individualized dose optimization techniques were used for this CT. COMPARISON: No relevant priors. FINDINGS: Normal soft tissue structures. Normal calvarium. Normal size ventricles and extra-axial spaces for the patient''s age. Normal white matter tracts of the cerebral hemispheres. Normal basal ganglia and thalami. Normal brainstem. Normal cerebellum. There is no intracranial hemorrhage. There are no findings of an acute ischemic infarction. Normal visualized paranasal sinuses. CT/Brain/Head without Contrast IMPRESSION: Normal unenhanced CT scan of the brain. Electronically Signed: Madeleine Ortega MD at 18:22 EDT ,
== END | disposition home or self-care (01) ==
LOC: CT 09:17
PROVIDERS: PCP Internal Medicine; Referring Provider Internal Medicine; Visit Provider Internal Medicine
DX: G43.109 Migraine with aura, not intractable, without status migrainosus (principal)
CPT/HCPCS: 70450

== ENCOUNTER → 2023-10-31 | Outpatient (CLI) | payer OTHER, SELFPAY ==
--- NOTE | 2023-10-31 07:19 | BI_ITS ---
MAMMOGRAPHY - BILATERAL SCREENING REASON FOR EXAM: Female, 43 years old. Routine annual screening examination. PERTINENT HISTORY: Grandmother with breast cancer. TECHNIQUE: Digital bilateral breast myra (3D mammographic acquisition) in the CC and MLO projections. 2-D mediolateral oblique (MLO) and craniocaudad (CC) views of both breasts were obtained. CAD: Full Field Digital Mammography with Computer Added Detection was performed. COMPARISON: Comparison is made with prior study dated October 27, 2022 and May 08, 2008. FINDINGS: Breast Composition: The breasts are heterogeneously dense, which may obscure small masses. There are no dominant masses or suspicious calcifications. Stable benign-appearing bilateral axillary lymph nodes. No other significant abnormalities are identified. There has been no significant change since the prior study. BI/SCRN MAMM (CAD)W/MYRA BILAT IMPRESSION: Stable bilateral screening mammogram. Yearly follow-up mammogram recommended. (A) ASSESSMENT CATEGORY: BIRADS Category 2: Benign. A letter regarding these results will be sent to the patient by the facility within 30 days. Approximately 10% of breast cancers are not detected by mammography. A normal mammogram should not delay biopsy of a clinically suspicious abnormality. [id number] Electronically Signed: Chas Rooney MD at 8:40 EDT ,
== END | disposition home or self-care (01) ==
LOC: OPBI 07:19
PROVIDERS: PCP Internal Medicine; Referring Provider Internal Medicine; Visit Provider Internal Medicine
DX: Z12.31 Encounter for screening mammogram for malignant neoplasm of breast (principal)
CPT/HCPCS: 77063; 77067

== ENCOUNTER 2024-01-05 14:36 | Observation (INO) | payer OTHER, SELFPAY ==
[2024-01-05] VITALS (12 sets, daily range): BP systolic 99–139; BP diastolic 62–87; PULSE 98–135; RESP 14–20; TEMP 36.4–37.2; O2SAT 94–98; BMI 33.7
--- NOTE | 2024-01-05 | APP_PTH ---
PATIENT: DAVID DON LOC: MS3 U#:[id number] AGE/SX: 43/F ROOM: OH323 RE01/05/[address]: Dr. Tim Benson MD : 1980 BED: 1 DIS: 01/06/2024 SPEC #: [id number] RECD: 01/05/24 10:13 STATUS: RAMON GIPSON #: [id number] LOLIS: 01/05/24 00:[address]: Tim Benson DEPT: SURGICAL PATHOLOGY RECD BY: Yordy Paredes ENTERED: 01/09/24 10:13 SP TYPE: APPENDIX OTHR DR: Dr. Rachel Lo, Tissues: Appendix, NOS Procedures: Surgery Specimen Level III HEADER OPERATION: Laparoscopic, appendectomy PRE-OP DIAGNOSIS: Abdominal pain, acute appendicitis TISSUE SUBMITTED: Appendix MICROSCOPIC DIAGNOSIS Appendix, appendectomy: Acute necrotizing appendicitis and acute serositis. Denudation of mucosa. AM/mr 01/10/2024 MICROSCOPIC DESCRIPTION Slides are reviewed. GROSS DESCRIPTION Received in fixative is one container labeled with the patient's name and designated appendix. The specimen consists of vermiform appendix measuring 8.0 cm in length and 1.2 cm in average diameter. No gross perforations are evident. Serial sections reveal a patent lumen with fecal material. No mass lesion is identified. Leather Leveler sections are submitted in one cassette. / AM: 01/09/2024 TC:2 CPT: 14918
--- NOTE | 2024-01-05 14:47 | EDS_ITS ---
HPI History of Present Illness Chief Complaint: Abd Pain Detail of Chief Complaint: Appendicitis Informant: patient Onset/Context/Timing Onset: Days (Onset of abdominal pain 2 days ago) Context: Gradual Onset Timing: Continuous Quality: Pain Location: Presently in the right lower quadrant Current Severity: Mild Maximum Severity: Moderate Worsened by: Walking Relieved by: Better if she remains still Associated Symptoms Associated Symptoms: Nausea and vomiting has not had anything to drink since Monday Narrative Narrative: Patient is a 43-year-old female with history of migraine headaches who presents with abdominal pain started 2 days ago is now localized to right lower quadrant with nausea vomiting. She has not anything to eat since Monday. She had arash hank last evening. She had outpatient laboratory tests including CAT scan. CAT scan reveals acute appendicitis. White count is elevated 14,000. Process was not done. This was ordered. Patient reports pain with coughing or walking. She has no other complaints. Prior similar symptoms: No Recent Illness/Hospitalization: No PFSH PFSH Medical History Migraine Home Medications ?Medication ?Instructions ?Recorded ?Last Taken ?Type sumatriptan succinate 50 mg tablet 50 mg PO .X1 PRN PRN migraines 02/06/17 01/28/20 History etonogestrel 0.12 mg-ethinyl 1 vag ring vaginal Q4W 12/27/19 01/28/20 History estradiol 0.015 mg/24 hr vaginal ring (NuvaRing) dupilumab 200 mg/1.14 mL 200 mg SQ 01/22/20 01/28/20 History subcutaneous syringe loratadine 10 mg tablet 10 mg PO DAILY PRN Allergies 01/22/20 01/28/20 History albuterol sulfate 90 mcg/actuation 2 puff inhalation 6XD PRN 11/02/22 Unknown Rx aerosol inhaler (ProAir HFA) shortness of breath or wheezing #8.5 grams benzonatate 100 mg capsule 200 mg (2 x 100 mg) PO TID PRN 11/02/22 Unknown Rx cough #30 caps Allergy/AdvReac Type Severity Reaction Status Date / Time No Known Allergies Allergy Verified 11/02/22 11:59 Family History Other Diabetes Heart disease Hypertension Kidney disease Surgical History S/P wisdom tooth extraction Social History (Updated 01/05/24 @ 14:[address] Bhanu Case MD) household members: spouse and children Smoking Status: Never smoker ROS ROS ED Constitutional Constitutional ED: Denies chills, fever(s), subjective or sweats Eyes Eyes: Denies blurry vision or change in vision ENT ENT ED: Denies rhinorrhea Cardiovascular Cardiovascular: Denies chest pain or palpitations Respiratory/Chest Respiratory/Chest: Denies cough, dyspnea or dyspnea on exertion Gastrointestinal Gastrointestinal: Reports abdominal pain, nausea and vomiting; Denies constipation, diarrhea or melena Genitourinary Genitourinary ED: Reports LMP (females 10-50) Details: Comment: (Approximately 4 weeks ago. On control.); Denies dysuria, hematuria or urinary frequency Musculoskeletal Musculoskeletal: Denies arthralgias, back pain or myalgias Integumentary Denies rash Hematologic/Lymphatic Hematologic/Lymphatic: Reports systems reviewed and no addt'l complaints, except as documented EXAM Physical Exam Const Vital Signs: 01/05/24 14:36 Temperature 97.6 F L Temperature Source Temporal Pulse Rate 135 H Respiratory Rate 16 Blood Pressure 109/86 H Blood Pressure Mean 93 Pulse Ox 98 Oxygen Delivery Method Room Air Positive well nourished and well developed General Appearance ED: well developed and NAD; Negative for pallor HEENT Reports dry mucous membranes HEENT Narrative: Atraumatic normocephalic Mouth ED: Yes dry mucous membranes Mouth: dry mucous membranes Eyes PERRL and EOMs intact bilaterally Neck no lymphadenopathy, supple and no JVD Resp normal respiratory effort and clear to auscultation bilaterally Cardio regular rhythm, S1 normal heart sound, S2 normal heart sound and no murmurs Rate: tachycardic GI non-distended; Negative for non-tender, hepatosplenomegaly or no masses GI Narrative: Patient has percussion tenderness right lower quadrant. Positive Rovsing sign. Inspection: Negative for abdominal distention Auscultation: hypoactive bowel sounds Palpation: soft, tender RLQ and guarding RLQ Back/Spine no CVA tenderness Extremity normal to inspection Neuro oriented x3 and CN's II-XII intact bilaterally Sensorium / Orientation: alert Psych mental status grossly normal Skin no rashes or lesions noted, no wounds and skin turgor normal General Skin Exam: Negative for jaundice or pallor MDM MDM MDM Narrative Medical decision making narrative: Patient presents with the CAT scan proven appendicitis. Patient's history and physical is consistent with appendicitis. Patient has elevated white count of 14,000. Patient was made NPO. She was given 4.5 g of Zosyn IV piggyback. Vitals are remarkable for tachycardia. She is given Zofran for nausea. Spoke with surgeon on-call Dr. Rain. History & Record Review Discussion w/independent historian: Patient Additional record(s) reviewed:: Prior outpatient record (Outpatient labs and CAT scan that were performed today were reviewed. Images are consistent with acute appendicitis. There is no evidence of perforation or abscess formation.) Lab Data Attestation: I reviewed the patient's lab results. Lab results narrative: Patient does have a white count.There is a slight shift. Electrolyte panel reveals mild hypokalemia. Labs: Laboratory Results - last 24 hr 01/05/24 14:58 Serum , Qual NEGATIVE Discharge Plan Dx/Rx/DC Orders Clinical Impression: Acute appendicitis with localized peritonitis, Leukocytosis, Hypokalemia, Sinus tachycardia Disposition Disposition: Acute Care [facility]
[2024-01-05] MEDS: Ondansetron 4 MG/2 ML Vial IV (14:53)
[2024-01-05] MEDS: 0.9% Normal Saline (1000mL) 1,000 ML 999 ML IV (14:53)
[2024-01-05] MEDS: Piperacil/Tazobactam 4.5 GM in 0.9% Normal Saline (100mL MB+) 100 ML IV (15:00)
[2024-01-05 15:08] LABS: Internal QC Validated? YES +Cl - CLEAR BKGD; Pregnancy, Serum, hCG Quali. NEGATIVE Negative
[2024-01-05] MEDS: Bupivacaine Mpf 0.5% 30 ML VIAL (15:10)
--- NOTE | 2024-01-05 15:20 | PCM.HP.STD ---
HPI - General HPI Narrative DAVID DON, is a 43 F who presents after 2 days of abdominal pain and nausea and vomiting. Patient reports the pain started 2 days ago in the epigastric region and then migrated to the lower quadrant. She is having pain in the right lower quadrant currently. She says she has been having nausea and vomiting since yesterday. She said yesterday she had a fever but it was under 102. She has not been febrile today. She does not note any diarrhea or constipation. [facility], [facility] Medical History Migraine Home Medications ?Medication ?Instructions ?Recorded ?Last Taken ?Type sumatriptan succinate 50 mg tablet 50 mg PO DAILY PRN migraines 02/06/17 01/01/24 History etonogestrel 0.12 mg-ethinyl 1 vag ring vaginal Q4W 12/27/19 01/05/24 History estradiol 0.015 mg/24 hr vaginal control ring (NuvaRing) dupilumab 300 mg/2 mL subcutaneous 300 mg subcut Q14D eczema 01/05/24 12/22/23 History pen injector (Dupixent) olopatadine 0.1 % eye drops 1 drp ophthalmic (eye) BID 01/05/24 01/04/24 History allergies propranolol 60 mg capsule,24 60 mg PO DAILY migraine prevention 01/05/24 01/03/24 History hr,extended release Allergy/AdvReac Type Severity Reaction Status Date / Time No Known Allergies Allergy Verified 11/02/22 11:59 Family History Other Diabetes Heart disease Hypertension Kidney disease Surgical History S/P wisdom tooth extraction Social History (Updated 01/05/24 @ 14:[address] Bhanu Case MD) household members: spouse and children Smoking Status: Never smoker ROS Constitutional Constitutional: Reports anorexia, chills and fever(s); Denies fatigue Eyes Eyes: Denies blurry vision ENT HEENT: Denies abnormal hearing Cardiovascular Cardiovascular: Denies chest pain Respiratory/Chest Respiratory/Chest: Denies cough or dyspnea Gastrointestinal Gastrointestinal: Reports abdominal pain, nausea and vomiting; Denies diarrhea Genitourinary Genitourinary: Denies change in urinary stream Musculoskeletal Musculoskeletal: Denies abnormal gait Integumentary Integumentary: Denies new lesions Neurologic Neurologic: Denies abnormal gait Endocrine Endocrinology: Denies flushing Hematologic/Lymphatic Hematologic/Lymphatic: Denies easy bleeding Vital Signs Vital Signs Vital Signs: 01/05/24 14:36 Temperature 97.6 F L Temperature Source Temporal Pulse Rate 135 H Respiratory Rate 16 Blood Pressure 109/86 H Blood Pressure Mean 93 Pulse Ox 98 Oxygen Delivery Method Room Air Weight Weight: 202 lb 9.6 oz Body Mass Index (BMI) 33.7 Physical Exam Const oriented x3 and no apparent distress Resp normal respiratory effort Cardio regular rhythm Rate: tachycardic GI soft to palpation Palpation: tender RLQ Extremity normal to inspection Results Lab / Micro Data Labs: Laboratory Results - last 24 hr 01/05/24 14:58: Serum , Qual NEGATIVE Assessment & Plan Assessment/Plan (1) Acute appendicitis: QUALIFIERS: Acute appendicitis type: unspecified acute appendicitis type Qualified Code(s): K35.80 - Unspecified acute appendicitis PLAN: The patient is having right lower quadrant pain and low-grade fever. She was found to have acute appendicitis on CT scan. I discussed laparoscopic appendectomy with the patient in detail including the risks of bleeding, infection, injury other organs such as the bowel or bladder or ureter. Patient understands all the risks and is willing to proceed. She was given antibiotics in the emergency room as well as a fluid bolus. She will be admitted to the floor postoperatively and I will discharge her home tomorrow. Dr. Benson will be completing the procedure for me as he is free and I have a prior engagement. I discussed this with the patient and she is agreeable. Pelon Rain MD Pager: [facility] [address] [place] [address], [address] [place] [address] Office:
--- NOTE | 2024-01-05 17:08 | PCM.OPRPT ---
Report of Operation Date of Procedure: 01/05/24 Pre-Operative Diagnosis: Acute appendicitis Post-Operative Diagnosis: Acute gangrenous appendicitis Surgery/Procedure Performed:: Laparoscopic appendectomy Description of Surgical Findings:: Timeout informed consent was obtained. 43-year-old female was taken to the operating placed on the table underwent general endotracheal intubation and anesthesia. Zosyn 3.375 g were given therapeutically preoperatively. The abdomen sterilely prepped and draped. 0.5% Marcaine was used as a local anesthetic. Throughout the procedure a total of 30 cc was used. Skin sites were preanesthetized. A vertical infraumbilical incision was created holding sutures of 0 Vicryl placed varies needle inserted saline drop test performed the abdomen was insufflated with CO2 to a pressure of 10 mmHg pressure. 10 mm trocar inserted. 10 mm laparoscope inserted. No evidence of trocar injuries. There is evidence of small bowel loops that were adherent to the anterior abdominal wall in the right lower quadrant. The uterus is adherent to the infraumbilical midline from a previous . 5 mm trocar was placed carefully suprapubically and one was placed in the right epigastric area. The small bowel loops were carefully dissected free bluntly. Then it became apparent that there was gangrenous appendicitis. There was no free leak but there was inflammatory change. The terminal small bowel was adherent to the appendix in the right tube was adherent. With careful blunt dissection these were both freed. The appendix at the cecal base was healthy. A window was made in the mesoappendix and a standard height 45 mm stapler was used to transect the appendix flush with the cecum. Further mobilizing the mesoappendix I then used a vascular height stapler and transected the mesoappendix. Appendix was placed in a retrieval bag. I briefly used some Surgicel at the cecal base and mesoappendix base. The abdomen was deflated and reinflated. These areas were inspected and noted to be completely hemostatic. The Surgicel was removed. The right right lower quadrant was irrigated and aspirated free of fluid. Although with some inflammatory changes to the terminal ileum and a portion of small bowel in the right tube there is no distinct abscess cavity. There is no free fluid in the abdomen and no purulence. I elected not to place a drain. The abdomen is allowed to deflated the CO2. The appendix was removed through the umbilical incision by slightly enlarging the fascial incision. The fascia was then closed with 2 [id number] sutures of 0 Vicryl. Skin edges were approximated opted for Monocryl subdermal stitches. Steri-Strips Telfa OpSite dressings applied. Sponge and instrument and needle counts were reported to the surgeon to be correct. Specimen appendix. Drains none. Blood loss minimal. The patient was taken to the recovery room in satisfied condition without apparent complication Surgeon: Tim Benson Type of Anesthesia: General and Local Anesthesiologist: Eduardo Ho
--- NOTE | 2024-01-05 17:16 | PCM.PN.BLA ---
Progress Note Gangrenous appendicitis identified with inflammatory changes to adjacent terminal ileum and fallopian tube. Will continue IV antibiotics at this time. Recheck CBC in the erlin. Tim Benson M.D., F.A.C.S.
[2024-01-05] MEDS: Lactated Ringers 1,000 ML 15 ML IV (17:37)
[2024-01-05] MEDS: 0.9% Normal Saline (1000mL) 1,000 ML 100 ML IV (18:42)
[2024-01-05] MEDS: Piperacil/Tazobactam 3.375 GM in 0.9% Normal Saline (50mL MB+) 50 ML IV (21:54)
[2024-01-05] MEDS: 0.9% Normal Saline (250mL Bag) 250 ML 15 ML IV (22:03)
[2024-01-05] MEDS: Acetaminophen 325 MG Tablet 650 MG PO (22:10)
[2024-01-06 00:27] VITALS: RESP 15; O2SAT 97
--- NOTE | 2024-01-06 03:06 | NURSING ---
2130: PT AMBULATED AROUND ENTIRE DEPARTMENT WITH STEADY GAIT NOTED AND NO C/O.
[2024-01-06 03:21] VITALS: BP 97/55; PULSE 100; RESP 15; TEMP 36.7; O2SAT 95
[2024-01-06] MEDS: 0.9% Normal Saline (1000mL) 1,000 ML 100 ML IV (04:53)
[2024-01-06] MEDS: Piperacil/Tazobactam 3.375 GM in 0.9% Normal Saline (50mL MB+) 50 ML IV (04:54)
[2024-01-06 05:27] VITALS: PULSE 100; RESP 15
[2024-01-06 07:36] LABS: Absolute Lymphocyte Count 1.28 X10^3/uL (0.83-4.51); Absolute Neutrophil Count 10.1 X10^3/uL (2.0-7.7); Basophil# 0.01 X10^3/uL; Basophil% 0.1 % (0-1); Eosinophil# 0.01 X10^3/uL; Eosinophils% 0.1 % (0-5); Hematocrit 34.5 % (37-47); Hemoglobin 11.5 g/dL (12.0-15.0); Lymphocyte # 1.28 X10^3/ul (0.83-4.51); Lymphocyte % 10.2 % (19-41); Mean Corp Hgb Conc 33.3 g/dL (32-36); Mean Corpuscular Hgb 29.9 pg (27.0-32.0); Mean Corpuscular Volume 89.6 fL (81-99); Mean Platelet Vol. 10.2 fl (6.2-12.0); Monocyte# 1.17 X10^3/uL; Monocyte% 9.3 % (0-10); NRBC Flagged by Analyzer 0 % (0-5); Neutrophil # 10.08 X10^3/uL (2.7-7.7); Neutrophil % 79.9 % (47-70); Platelet Count 236 K/mm3 (150-450); RBC Distribution Width SD 39.1 fl (35.1-43.9); Red Blood Count 3.85 M/mm3 (4.2-5.4); White Blood Count 12.6 K/mm3 (4.4-11.0)
[2024-01-06 08:45] VITALS: BP 107/64; PULSE 90; RESP 18; TEMP 36.6; O2SAT 96
--- NOTE | 2024-01-06 08:55 | PN.SURG_ITS ---
Subjective Subjective Patient is comfortable and feeling well and reports she is passing gas with no nausea or vomiting. She tolerated clear liquids. Objective Data Objective Data Vital Signs: Vital Signs Temp Pulse Resp BP Pulse Ox O2 Del Method 98 F 90 18 107/64 96 Room Air 01/06/24 08:45 01/06/24 08:45 01/06/24 08:45 01/06/24 08:45 01/06/24 08:45 01/06/24 08:45 Oxygen Delivery Method Room Air Weight: 202 lb 9.6 oz Body Mass Index (BMI) 33.7 Intake & Output: Intake and Output for Last 24 Hours 01/04/24 01/05/24 01/06/24 23:59 23:59 23:59 Intake Total 1118 / 1518 1550 / 1550 Balance 1118 / 1518 1550 / 1550 Lab / Micro Data 01/06/24 07:21 Labs: Laboratory Results - last 24 hr 01/05/24 14:58: Serum , Qual NEGATIVE 01/06/24 07:21: WBC 12.6 H, RBC 3.85 L, Hgb 11.5 L, Hct 34.5 L, MCV 89.6, MCH 29.9, MCHC 33.3, RDW Std Deviation 39.1, RDW Coeff of Selam 12.0, Plt Count 236, MPV 10.2, Immature Gran % (Auto) 0.400, Neut % (Auto) 79.9 H, Lymph % (Auto) 10.2 L, [place] % (Auto) 9.3, Eos % (Auto) 0.1, Baso % (Auto) 0.1, Absolute Neuts (auto) 10.1 H, Absolute Lymphs (auto) 1.28, Nucleated RBC % 0 Physical Exam Const oriented x3 and no apparent distress Resp normal respiratory effort GI soft to palpation and non-tender Assessment & Plan Assessment/Plan (1) Acute appendicitis: QUALIFIERS: Acute appendicitis type: unspecified acute appendicitis type Qualified Code(s): K35.80 - Unspecified acute appendicitis PLAN: Patient is doing well for laparoscopic appendectomy for acute appendicitis. I will advance her to regular diet as long as she tolerates that I will discharge her home today. Follow-up in 2 weeks. Postoperative instructions were given. Pelon Rain MD Pager: [facility] [address] [place] [address], [address] [place] [address] Office:
--- NOTE | 2024-01-06 08:56 | PCM.DC.SUM ---
Providers Date of Admission: 01/05/24 Primary Care Physician: Dr. Rachel Lo DO Reason For Visit: ABD PAIN Diagnosis Discharge Diagnosis (1) Acute appendicitis: Status: Acute Code(s): K35.80 - Unspecified acute appendicitis Qualifiers: Acute appendicitis type: unspecified acute appendicitis type Qualified Code(s): K35.80 - Unspecified acute appendicitis Plan: Patient is doing well for laparoscopic appendectomy for acute appendicitis. I will advance her to regular diet as long as she tolerates that I will discharge her home today. Follow-up in 2 weeks. Postoperative instructions were given. Pelon Rain MD Pager: [facility] [address] [place] [address], [address] [place] [address] Office: Medications at Discharge Home Medications sumatriptan succinate 50 mg tablet 50 mg PO DAILY PRN migraines 02/06/17 etonogestrel 0.12 mg-ethinyl estradiol 0.015 mg/24 hr vaginal ring (NuvaRing) 1 vag ring vaginal Q4W control 12/27/19 dupilumab 300 mg/2 mL subcutaneous pen injector (Dupixent) 300 mg subcut Q14D eczema 01/05/24 olopatadine 0.1 % eye drops 1 drp ophthalmic (eye) BID allergies 01/05/24 propranolol 60 mg capsule,24 hr,extended release 60 mg PO DAILY migraine prevention 01/05/24 oxycodone 5 mg tablet 5 - 10 mg (1 - 2 x 5 mg) PO Q4H PRN PRN Pain Score 4-10 5 days #15 tabs 01/06/24 Hospital Course Operations appendectomy Procedures None Summary of Care Provided Hospital Course: Patient was admitted to the hospital and found to have acute appendicitis. She was taken for surgery by Dr. Benson for laparoscopic appendectomy. She tolerated the procedure well. The following day she was tolerating clears and advance to regular diet was tolerating regular diet she will be discharged home. Physical Exam Const oriented x3 and no apparent distress Resp normal respiratory effort GI soft to palpation and non-tender Weight / BMI Weight Weight: 202 lb 9.6 oz Body Mass Index (BMI) 33.7 ABG / Lab / Microbiology Data 01/06/24 07:21 Laboratory: Laboratory Results - last 24 hr 01/05/24 14:58: Serum , Qual NEGATIVE 01/06/24 07:21: WBC 12.6 H, RBC 3.85 L, Hgb 11.5 L, Hct 34.5 L, MCV 89.6, MCH 29.9, MCHC 33.3, RDW Std Deviation 39.1, RDW Coeff of Selam 12.0, Plt Count 236, MPV 10.2, Immature Gran % (Auto) 0.400, Neut % (Auto) 79.9 H, Lymph % (Auto) 10.2 L, [place] % (Auto) 9.3, Eos % (Auto) 0.1, Baso % (Auto) 0.1, Absolute Neuts (auto) 10.1 H, Absolute Lymphs (auto) 1.28, Nucleated RBC % 0 D/C Instructions Discharge Diet: Light diet - advance as tolerated Discharge Activity: May Not Drive (for 2-3 days or while taking narcotic pain medications.) May shower in (days): 1 Lifting Restrictions: 20 lbs for 2 weeks Call your doctor if your incision/area has: Continuous Slow Oozing, Sudden Increased Bleeding, Increased Pain/ Swelling, Increased Redness and Foul Smelling Discharge Call your doctor if you observe: Fever of 101 or Higher Suture Line Care: Avoid Pulling/Pushing and Avoid Pinching/Bending Remove Dressing in: 2 days Cleanse incision/area with: Soap & Water Additional Dressing/Incision Instructions: Keep dressing clean and dry. Change or remove dressing in 2 days. Leave steri strips for 1 week. May protect with a gauze bandaid. Alternate ibuprofen and Tylenol for pain control, oxycodone for breakthrough pain. Please Follow Up With: Pelon Rain MD When: Please call to schedule 2 week follow up appointment. [phone] Meaningful Use Info Meaningful Use Meaningful Use Diagnoses (Choose all that apply): None applicable Ischemic Stroke Statin Dosing Therapy Reference: STATIN DOSE THERAPY REFERENCE: * Patients > 75 years receive moderate or high dose statin therapy. * Patients 75 years or YOUNGER should receive HIGH intensity statin dose unless contraindicated. You will be required to document reason for non-treatment if statin daily dose does not meet guidelines. HIGH DOSE STATIN THERAPY DAILY Atorvastatin > than or = to 40 mg Rosuvastatin > than or = to 20 mg Amlodipine + Atorvastatin > than or = to 2.5/40 mg Ezetimibe + Simvastatin 10/80 mg Simvastatin 80mg Discharge Plan Admission Admit Date/Time: 01/05/24 16:00 Attending Provider: Tim Benson Primary Care Provider: Rachel Lo Discharge Orders/Prescriptions Prescriptions: New oxycodone 5 mg Tablet 5 - 10 mg PO Q4H PRN PRN (Reason: Pain Score 4-10) 5 Days Qty: 15 0RF Continued etonogestrel-ethinyl estradiol [NuvaRing] 0.12-0.015 mg/24 hr ring 1 vag ring VAGINAL Q4W Rx Instructions: leave in place for 3 weeks of a 4-week cycle sumatriptan succinate 50 MG tablet 50 mg PO DAILY PRN (Reason: migraines) propranolol 60 mg capsule,extended release 24 hr 60 mg PO DAILY Dupixent Pen 300 mg/2 mL pen injector 300 mg subcut Q14D olopatadine 0.1 % drops 1 drp ophthalmic (eye) BID Referrals / Follow Up: Rachel Lo DO [Primary Care Provider] - Disposition Disposition (needs filled in before D/C Order can be placed): Home, Self Care
[2024-01-06 11:30] VITALS: PULSE 90; RESP 18; O2SAT 96
[2024-01-06 14:30] VITALS: BP 120/68; PULSE 96; RESP 18; TEMP 36.6; O2SAT 98
== END 2024-01-06 15:01 | disposition home or self-care (01) ==
LOC: ED 15:03 → MS3 01-06 08:58 → ED 01-06 09:07 → MS3 01-06 09:20
PROVIDERS: Admitting Provider Surgery; Emergency Provider Emergency Medicine; PCP Internal Medicine; Visit Provider Surgery
PROC: 0DTJ4ZZ Resection of Appendix, Percutaneous Endoscopic Approach (ICD-10-PCS; CPT 44970; principal; 2024-01-05 15:40)
DX: K35.31 Acute appendicitis with localized peritonitis and gangrene, without perforation (principal); E87.6 Hypokalemia; G43.909 Migraine, unspecified, not intractable, without status migrainosus; Z79.899 Other long term (current) drug therapy
CPT/HCPCS: 44970; 00840; 36415; 84703; 85025; 88304; 94668; 96365; 96366; 96375; 99221; 99252; 99283; J7030; J7050; J7120; A4216; G0378; G0463; J2405

== ENCOUNTER → 2024-01-05 | Outpatient (CLI) | payer OTHER, SELFPAY ==
--- NOTE | 2024-01-05 13:28 | CT_ITS ---
ACR Level 3 findings have been noted. An addendum which confirms receipt of the report will follow. STUDY: CT ABDOMEN AND PELVIS WITH CONTRAST REASON FOR EXAM: Female, 43 years old. STAT, r/o appendicities, RLQ pain, fever/chills -- STAT, r/o appendicities, RLQ pain, fever/chills RADIATION DOSAGE (If Supplied By Facility): CTDIvol = ( 16.69 ) mGy, DLP = ( 1168.35 ) mGycm TECHNIQUE: Transaxial images were obtained from the dome of the diaphragm to the symphysis pubis with oral contrast. ml of Gastrografin and amp; 100mL Isovue-370 contrast was administered. Sagittal and coronal images were reconstructed. Individualized dose optimization techniques were used for this CT. COMPARISON: None. FINDINGS: The visualized lung bases are unremarkable. The visualized portions of the heart are within normal limits. Normal liver. Normal gallbladder and extrahepatic biliary system. Normal spleen. Normal pancreas. Normal bilateral adrenal glands. Normal right kidney. Normal left kidney. The bowel loops are opacified with oral contrast. Normal visualized stomach. Normal small intestine. Normal colon. Moderate abnormal gas and debris distention of the appendix maximally measuring up to 1.48 cm with surrounding periappendiceal inflammation is consistent with acute appendicitis. No air or perforation is seen. No abscess is present. Normal abdominal aorta. Normal inferior vena cava. Normal retroperitoneum. Normal urinary bladder. Unremarkable uterus and adnexa. Normal abdominal wall. Normal osseous structures. CT/Abdomen/Pelvis WITH Contrast IMPRESSION: Acute appendicitis without evidence of rupture or abscess Electronically Signed: Ankush Renner MD at 14:27 EDT ,
[2024-01-05 13:43] LABS: Absolute Lymphocyte Count 1.46 X10^3/uL (0.83-4.51); Absolute Neutrophil Count 11.4 X10^3/uL (2.0-7.7); Basophil# 0.03 X10^3/uL; Basophil% 0.2 % (0-1); Eosinophil# 0.04 X10^3/uL; Eosinophils% 0.3 % (0-5); Hematocrit 42.8 % (37-47); Hemoglobin 14.2 g/dL (12.0-15.0); Lymphocyte # 1.46 X10^3/ul (0.83-4.51); Lymphocyte % 10.5 % (19-41); Mean Corp Hgb Conc 33.2 g/dL (32-36); Mean Corpuscular Hgb 29.1 pg (27.0-32.0); Mean Corpuscular Volume 87.7 fL (81-99); Mean Platelet Vol. 11.2 fl (6.2-12.0); Monocyte# 0.95 X10^3/uL; Monocyte% 6.8 % (0-10); NRBC Flagged by Analyzer 0 % (0-5); Neutrophil # 11.41 X10^3/uL (2.7-7.7); Neutrophil % 81.8 % (47-70); Platelet Count 290 K/mm3 (150-450); RBC Distribution Width CV 12.1 % (11.6-14.6); RBC Distribution Width SD 38.8 fl (35.1-43.9); Red Blood Count 4.88 M/mm3 (4.2-5.4)
[2024-01-05 14:34] LABS: ALB/GLOB Ratio 0.8 RATIO (0.9-2.4); AST(SGOT) 42 U/L (15-37); Alanine Aminotransfer ALT/SGPT 35 U/L (13-56); Albumin, Serum 3.6 g/dL (3.2-5.0); Alkaline Phosphatase 73 U/L (45-117); Amylase 69 U/L (25-115); Anion Gap 7 (5-15); BUN 14 mg/dL (7-18); BUN/Creat Ratio 14.8 RATIO (10-20); Calcium,Total 9.5 mg/dL (8.5-10.1); Chloride 106 mmol/L (98-107); Creatinine, Serum 0.95 mg/dL (0.55-1.02); EST Glomerular Filtration Rate 69 mL/min (>60); Est Glom Filt Rate - Afr Amer 83 mL/min (>60); Globulin 4.5 g/dL (2.2-4.2); Glucose 99 mg/dL (74-106); Lipase 50 U/L (13-75); Potassium 3.4 mmol/L (3.5-5.1); Protein, Total 8.1 g/dL (6.4-8.2); Sodium Level 137 mmol/L (136-145)
[2024-01-05 14:47] LABS: Erythrocyte Sedimentation Rate 53 mm/hr (0-30)
== END | disposition home or self-care (01) ==
LOC: CT 12:40
PROVIDERS: PCP Internal Medicine; Referring Provider Nurse Practitioner Family; Visit Provider Nurse Practitioner Family
DX: R10.31 Right lower quadrant pain (principal)
CPT/HCPCS: 36415; 74177; 80053; 82150; 83690; 85025; 85652; 86140; Q9967

== ENCOUNTER → 2024-10-31 | Outpatient (CLI) | payer OTHER, SELFPAY ==
--- NOTE | 2024-10-31 08:30 | BI_ITS ---
EXAM: SCRN MAMM (CAD)W/MYRA BILAT DATE: 10/31/2024 CLINICAL HISTORY: F, Age 44 y/o , SCRN MAMM (CAD)W/MYRA BILAT. Maternal grandmother with history of breast cancer. BREAST CANCER RISK ASSESSMENT: Not assessed. TECHNIQUE: Bilateral screening digital breast tomosynthesis with 2D and 3D images. Computer aided detection. COMPARISON: Prior exam(s) dating back to October 31, 2023.. FINDINGS: Bilateral Breast Mammographic Findings: No significant masses, calcifications or other abnormalities are identified. TISSUE DENSITY: The breast tissue is heterogenously dense, which may obscure small masses. No suspicious masses, areas of developing architectural distortion, or suspicious calcifications. There has been no significant interval change. BI/SCRN MAMM (CAD)W/MYRA BILAT IMPRESSION: Right Breast: BIRADS 1 NEGATIVE. Left Breast: BIRADS 1 NEGATIVE. OVERALL FINAL ASSESSMENT: BIRADS 1 NEGATIVE RECOMMENDATION: ROUTINE ANNUAL FOLLOW-UP Bilateral in 1 Year Normal interval followup mammograms are recommended in 12 months. A letter with findings and recommendations will be mailed to the patient. Reading Location: [place] [address]
== END | disposition home or self-care (01) ==
LOC: OPBI 08:39
PROVIDERS: PCP Internal Medicine; Referring Provider Internal Medicine; Visit Provider Internal Medicine
DX: Z12.31 Encounter for screening mammogram for malignant neoplasm of breast (principal)
CPT/HCPCS: 77063; 77067

== ENCOUNTER → 2025-03-31 | Outpatient (CLI) | payer OTHER, SELFPAY | END | disposition home or self-care (01) | LOC: LAB 11:15 | PROVIDERS: PCP Internal Medicine; Referring Provider Internal Medicine; Visit Provider Internal Medicine | DX: E78.5 Hyperlipidemia, unspecified (principal) | CPT/HCPCS: 36415; 84443 ==

== ENCOUNTER → 2025-04-08 | Outpatient (CLI) | payer OTHER, SELFPAY ==
--- NOTE | 2025-04-08 06:19 | CT_ITS ---
PROCEDURE: LIMITED CHEST CT CARDIAC ONLY 04/08/2025 REASON FOR EXAM: HYPERLIPIDEMIA TECHNIQUE: CT performed for coronary artery calcification. One or more dose reduction techniques were used (e.g., Automated exposure control, adjustment of the mA and/or kV according to patient size, use of iterative reconstruction technique). RADIATION DOSE SUMMARY: CTDlvol: 24.38 mGy DLP: 438.83 mGycm COMPARISON: None. CT/Limited Chest CT Cardiac Only IMPRESSION: Limited imaging of the lungs demonstrates no acute process. No pleural effusion or pneumothorax is seen in visualized areas. No adenopathy is noted. The visualized upper abdomen demonstrates no significant abnormality. Reading Location: [place] [address]
--- OUTSIDE RECORDS SUMMARY | 2025-04-08 06:20 | XMS RPT_ITS | CCD ---
Author Organization [facility] ion Partnership [facility] Care Team Providers Care Trimmer Buffing Wheel Name Role Phone Rachel Lo Unavailable Uriah Cooney Unavailable Dank Houston Unavailable Leslie Rodriguez Unavailable Shireen Vega Unavailable Unavailable Messenger, Jenny Unavailable Unavailable Geoffreya, Kiesha Unavailable Milena Wilder Unavailable Unavailable Unavailable Unavailable Rachel Lo Unavailable Uriah Cooney Unavailable [facility] Unavailable Dank Houston Unavailable Leslie Rodriguez Unavailable Messenger, Jenny Unavailable Unavailable Elif Wilderian Unavailable Unavailable Unavailable Unavailable Lisette Ty Unavailable Unavailable Jenny Randall Unavailable Unavailable Aruna Liu Unavailable [phone] Laisha Chin Unavailable Unavailable Messenger, Jenny Unavailable Unavailable Shiraz Gray Unavailable Unavailable Ciesa, Kiesha Unavailable Shireen Vega Unavailable Unavailable Rachel Lo Unavailable Kurtis Reno Unavailable Unavailable Rachel Lo DO Unavailable Uriah Cooney DPM Unavailable Aruna Liu Unavailable [facility] Unavailable Dr. Dank Houston Unavailable Dr. Leslie Rodriguez Unavailable [facility] VP CARE MANAGEMENT, Laisha Unavailable Unavailable Dmitri RN, Jenny Unavailable Unavailable Isaac DYNO TECHNICIAN, Shiraz Unavailable Unavailable Orlando, Lisette Unavailable Unavailable Meño, Milena Unavailable Unavailable Unavailable Unavailable Chandler DYNO TECHNICIAN, Cara Unavailable Unavailable Teresita DO, Rachel Unavailable Alicia, sohail Unavailable Unavailable Slarb DYNO TECHNICIAN, Yareli Unavailable Unavailable [place] VP CARE MANAGEMENT, Kayela Unavailable Unavailable Erika ROWLEY, Lisa Unavailable Unavailable Teresita DO, Rachel Attending Unavailable Teresita DO, Rachel Referring Unavailable Teresita DO, Rachel Consulting Unavailable [place] DYNO TECHNICIAN, Steve Unavailable Unavailable Teresita ROQUE, Dr. Ramos Primary Care Provider Teresita ROQUE, Dr. Ramos Attending Provider [phone] Teresita ROQUE, Dr. Ramos Referring Provider [phone] Teresita ROQUE, Dr. Ramos Primary Care Provider Assessment, Health Risk Attending Provider Unava ilable Assessment, Health Risk Referring Provider Unava ilable Teresita ROQUE, Dr. Ramos Attending Provider [phone] Teresita ROQUE, Dr. Ramos Referring Provider [phone] Rachel Lo Primary Care Unavailable TeresitaRachel Attending Unavailable TeresitaRachel Referring Unavailable Teresita, Rachel Primary Care Unavailable TeresitaRachel Attending Unavailable TeresitaRachel Referring Unavailable Teresita, Rachel Attending Unavailable TeresitaRachel Referring Unavailable Teresita, Rachel Primary Care Unavailable Assessment, Health Risk Attending Unavaila ble Assessment, Health Risk Referring Unavaila ble TeresitaRachel erwin Primary Care Unavailable TeresitaRachel Primary Care Unavailable Assessment, Health Risk Attending Unavaila ble Assessment, Health Risk Referring Unavaila ble Teresita, Rachel Primary Care Unavailable TeresitaRachel Attending Unavailable Teresita, Rachel Referring Unavailable Allergies Allergy Classification Reported Allergen(s) Allergy Type Date of Onset Reaction(s) Facility (20 sources) Penicillins; Translations: [Penicillins] allergy to substance [facility] Work Phone: Comment on above: Abdominal pain, Diar halley Medications Current Medications Medication Drug Class(es) Dates Sig (Normalized) Sig (Original) cyclobenzaprine hydrochloride 5 mg oral tablet (1 source) Muscle Relaxant Start: 04-27-2021 End: 05-01-2021 take 1 tablet by mouth every eight hours cyclobenzaprine 5 mg oral tablet ; 1 tab(s) orally every 8 hours Quantity: 15 Refills: 0 Ordered: 27-Apr-2021 Kurtis Reno Start: 27-Apr-2021 End: 01-May-2021 Generic Substitution Allowed Comments: Some non-prescription drugs may aggravate your condition. Read all labels carefully. If a warning appears, check with your doctor before taking.This drug may impair the ability to drive or operate machinery. Use care until you become familiar with its effects. Comment on above: Some non-prescriptio n drugs may aggravate your condition. Read all labels carefully. If a warning appears, check with your doctor before taking.This drug may impair the ability to drive or operate machinery. Use care until you become familiar with its effects. 2 ml dupilumab 150 mg/ml auto-injector (20 sources) Interleukin-4 Receptor alpha Antagonist Start: 01-05-2024 Dupilumab (Dupixent Pen) 300 mg/2 mL pen injector Active 300 mg SC Q14D January 05, 2024 12:00am eczema Start: 01-22-2020 End: 01-05-2024 Dupilumab 200 MG/1.14 ML syr christopher Discontinued 200 mg SQ January 22, 2020 12:00am January 05, 2024 3:09pm Dupixent 300 MG/ 2ML Subcutaneous Solution Prefilled Syringe every other week (300 MG/2ML) Active Dupixent 300 MG/ 2ML Subcutaneous Solution Prefilled Syringe (300 MG/2ML) Inactive 21 day ethinyl estradiol 0.555159 mg/hr / etonogestrel 0.005 mg/hr vaginal system (20 sources) Progestin, Estrogen Start: 04-28-2023 NuvaRing 0 .12 mg-0.015 mg/24 hr vaginal 1 Ring TAD for 30 days Quantity: 1 {Ring} Refills: 12 Ordered: 28-Apr-2023 Rachel Lo DO, DO, Kathleen Start : 28-Apr-2023 Active Start: 05-09-2022 NuvaRing 0.12- 0.015 MG/24HR Vaginal Ring 1 Ring TAD for 30 days Quantity: 1 {Ring} Refills: 12 Ordered: 09-May-2022 Rachel Lo DO, DO, Kathleen Start : 09-May-2022 Active Start: 04-15-2021 NuvaRing 0.12- 0.015 MG/24HR Vaginal Ring 1 Ring TAD for 30 days Quantity: 1 {Ring} Refills: 12 Ordered: 15-Apr-2021 Gravius Lior GABRIELin Start : 15-Apr-2021 Active Start: 04-30-2020 NuvaRing 0.12- 0.015 MG/24HR Vaginal Ring 1 Ring TAD for 30 days Quantity: 1 {Ring} Refills: 12 Ordered: 30-Apr-2020 Rachel Lo DO, DO, Kathleen Start : 30-Apr-2020 Active Start: 12-27-2019 Etonogestrel-E thinyl Estradiol (Nuvaring) 0.12-0.015 mg/24 hr ring Active 1 NMA VAGINAL every 4 weeks December 27, 2019 12:00am control leave in place for 3 weeks of a 4-week cycle Start: 12-27-2019 Etonogestrel-E thinyl Estradiol (Nuvaring) 0.12-0.015 mg/24 hr ring Active 1 VAG RING VAGINAL every 4 weeks December 27, 2019 12:00am leave in place for 3 weeks of a 4-week cycle Start: 05-02-2019 NuvaRing 0.12- 0.015 MG/24HR Vaginal Ring 1 Ring TAD for 30 days Quantity: 1 {Ring} Refills: 12 Ordered: 02-May-2019 Rachel Lo DO, DO, Kathleen Start : 02-May-2019 Active Start: 02-06-2015 End: 03-08-2015 NUVARING, 0.12-0.015MG/24HR (Vaginal Ring) 1 Ring TAD for 30 days Quantity: 1 {Ring} Refills: 0 Ordered: 06-Feb-2015 Rachel Lo DO, DO, Kathleen Start : 06-Feb-2015 End : 08-Mar-2015 Inactive Comments: needs pap Comment on above: needs pap olopatadine 1 mg/ml ophthalmic solution (2 sources) Histamine-1 Receptor Inhibitor Start: Olopatadine 0.1 % drops Active 1 NMA OPHTHALMIC TWICE A DAY January 05, 2024 12:00am allergies 24 hr propranolol hydrochloride 60 mg extended release oral capsule (3 sources) beta-Adrenergic Marlena Start: take 1 capsule by mouth once daily Propranolol 60 mg capsule,extended release 24 hr Active 60 mg PO DAILY January 05, 2024 12:00am migraine prevention Start: 04-28-2023 take 1 capsule by mo uth once daily InderaL LA 60 mg oral Capsule, Extended Release 24 hr 1 Capsule daily for 0 days Quantity: 30 {Capsule} Refills: 1 Ordered: 28-Apr-2023 Rachel Lo DO, DO, Kathleen Start : 28-Apr-2023 Active SUMAtriptan 50 mg oral tablet (20 sources) Serotonin-1b and Serotonin-1d Receptor Agonist Start: 04-28-2023 take 1 tablet by mouth every two hours Imitrex 50 mg oral tablet 1 tab onset of borden rep in 2 hrs Tablet uad for 0 days Quantity: 10 {Tablet} Refills: 5 Ordered: 28-Apr-2023 Rachel Lo DO, DO, Kathleen Start : 28-Apr-2023 Active Start: 02-20-2023 take 1 tablet by dulce th every two hours Imitrex 50 mg oral tablet 1 tab onset repeat in 2 hrs Tablet uad for 0 days Quantity: 10 {Tablet} Refills: 0 Ordered: 20-Feb-2023 Rachel Lo DO, DO, Kathleen Start : 20-Feb-2023 Active Start: 05-09-2022 take 1 tablet by dulce th every two hours Imitrex 50 MG Oral Tablet 1 tab onset repeat in 2 hrs Tablet uad for 0 days Quantity: 10 {Tablet} Refills: 4 Ordered: 09-May-2022 Rachel Lo DO, DO, Kathleen Start : 09-May-2022 Active Start: 04-15-2021 take 1 tablet by dulce th every two hours Imitrex 50 MG Oral Tablet 1 tab onset repeat in 2 hrs Tablet uad for 0 days Quantity: 10 {Tablet} Refills: 4 Ordered: 15-Apr-2021 Laisha Chin CMA Start : 15-Apr-2021 Active Start: 04-30-2020 take 1 tablet by dulce th every two hours Imitrex 50 MG Oral Tablet 1 tab onset repeat in 2 hrs Tablet uad for 0 days Quantity: 10 {Tablet} Refills: 4 Ordered: 30-Apr-2020 Rachel Lo DO, DO, Kathleen Start : 30-Apr-2020 Active Start: 05-02-2019 take 1 tablet by dulce th every two hours Imitrex 50 MG Oral Tablet 1 tab onset repeat in 2 hrs Tablet uad for 0 days Quantity: 10 {Tablet} Refills: 4 Ordered: 02-May-2019 Rachel Lo DO, DO, Kathleen Start : 02-May-2019 Active Start: 02-06-2017 take 1 tablet by dulce th once daily as needed Sumatriptan Succinate 50 MG tablet Active 50 mg PO DAILY as needed for migraines February 06, 2017 12:00am Start: 02-06-2017 Sumatriptan Vail ccinate Active 50 MG PO .X1 PRN February 06, 2017 12:00am Completed/Discontinued Medications Medication Drug Class(es) Dates Sig (Normalized) Sig (Original) acetaminophen 325 mg / HYDROcodone bitartrate 5 mg oral tablet (20 sources) Opioid Agonist Start: 01-29-2020 End: 02-03-2020 take 1-2 tablets by mouth every six hours as needed for pain Hydrocodone-Acetamin ophen 1 TABLET tablet Discontinued 1 - 2 {tbl} PO EVERY 6 HOURS NEEDED as needed for Pain 40 5 0 January 29, 2020 February 02, 2020 12:00am February 03, 2020 12:02am Postoperative pain Other acute postprocedural pain stop all other narcotics and tylenol products Start: 01-29-2020 End: 02-03-2020 take 1-2 tablets by mouth every six hours as needed Hydrocodone-Acetaminophen Discontinued 1 - 2 TABLET PO EVERY 6 HOURS NEEDED 40 5 January 29, 2020 February 03, 2020 12:02am stop all other narcotics and tylenol products Start: 11-11-2010 End: 01-28-2011 VICODIN ES, 7.5-750MG (Oral Tablet) 1 Tablet take 1 now if no improvement take again in 2 hrs for 0 days Quantity: 2 {Tablet} Refills: 1 Ordered: 28-Jan-2011 JOCELYN Strong LPN Start : 11-Nov-2010 End : 28-Jan-2011 Inactive Comments: two Comment on above: two [id number] 200 actuat albuterol 0.09 mg/actuat metered dose inhaler (20 sources) beta2-Adrenergic Agonist Start: 08-24-2021 Albuterol Sulfate (Proair Hfa) 90 mcg/actuation HFA aerosol inhaler Active 2 PUFF INHALATION 6 times per day 8.5 August 24, 2021 2:20pm Start: 08-24-2021 End: 01-05-2024 Albuterol Sulfate (Proair Hf a) 90 mcg/actuation HFA aerosol inhaler Discontinued 2 NMA INHALATION 6 times per day as needed for shortness of breath or wheezing 8.5 0 November 02, 2022 12:22pm January 05, 2024 3:09pm Start: 08-24-2021 End: 11-02-2022 Albuterol Sulfate (Proair Hf a) 90 mcg/actuation HFA aerosol inhaler Active 2 PUFF INHALATION 6 times per day 8.5 November 02, 2022 12:22pm Start: 07-17-2018 End: 04-30-2020 Albuterol Sulfate (2.5 MG/3M L) 0.083% Inhalation Nebulization Solution 1 (one) Milliliter q6hrs prn for 0 days Quantity: 1 {Box} Refills: 0 Ordered: 30-Apr-2020 Laisha Chin CMA Start : 17-Jul-2018 End : 30-Apr-2020 Inactive Start: 07-17-2018 End: 04-30-2020 take 2 puff(s) by inhalation three times daily as needed ProAir HFA 108 (90 Base) MCG/ACT Inhalation Aerosol Solution 2 (two) Puff tid prn for 0 days Quantity: 1 {Inhaler} Refills: 0 Ordered: 30-Apr-2020 Laisha Chin CMA Start : 17-Jul-2018 End : 30-Apr-2020 Inactive Start: 07-17-2018 End: 04-30-2020 take 2 puff(s) by inhalation three times daily as needed ProAir HFA 108 (90 Base) MCG/ACT Inhalation Aerosol Solution 2 (two) Puff tid prn for 0 days Quantity: 1 {Inhaler} Refills: 0 Ordered: 30-Apr-2020 Laisha Chin CMA Start : 17-Jul-2018 End : 30-Apr-2020 Inactive Start: 05-24-2013 End: 01-13-2014 PROVENTIL HFA, 108 (90 Base) MCG/ACT (Inhalation Aerosol Solution) 2 (two) Aerosol Soln 2puffs tid for 0 days Quantity: 1 {Aerosol_Soln} Refills: 0 Ordered: 13-Jan-2014 Jenny Rizvi RN Start : 24-May-2013 End : 13-Jan-2014 Inactive Start: 05-24-2013 End: 01-13-2014 PROVENTIL HFA, 108 (90 Base) MCG/ACT (Inhalation Aerosol Solution) 2 (two) Aerosol Soln 2puffs tid for 0 days Quantity: 1 {Aerosol_Soln} Refills: 0 Ordered: 13-Jan-2014 Jenny Rizvi RN Start : 24-May-2013 End : 13-Jan-2014 Inactive amoxicillin 875 mg / clavulanate 125 mg oral tablet (20 sources) Penicillin-class Antibacterial Start: 07-03-2015 End: 11-25-2022 take 1 tablet by mouth twice daily amoxicillin-pot clavulanate 875-125 mg oral tablet 1 (one) tablet bid for 0 days Quantity: 20 {Tablet} Refills: 0 Ordered: 25-Nov-2022 Yareli Cleary LPN Start : 11-Nov-2022 End : 25-Nov-2022 Inactive Comment on above: Discontinued by [facility] [facility] vendor. azithromycin 250 mg oral tablet (20 sources) Macrolide Antimicrobial Start: 08-24-2021 End: 11-02-2022 take 2-5 tablets by mouth once daily Azithromycin 250 mg tablet Discontinued 0 PO .COMPLEX 6 0 August 24, 2021 1:00am November 02, 2022 11:59am take 500 mg today (day 1), then 250 mg for 4 days (days 2-5) PO Start: 07-17-2018 End: 12-24-2018 Zithromax Z-Berto 250 MG Oral Tablet 1 Tablet as dirrected for 0 days Quantity: 1 {Package} Refills: 0 Ordered: 24-Dec-2018 Jenny Rizvi RN Start : 17-Jul-2018 End : 24-Dec-2018 Inactive benzonatate 100 mg oral capsule (3 sources) Non-narcotic Antitussive Start: 11-02-2022 End: 01-05-2024 take 2 capsules by mouth three times daily as needed for cough Benzonatate 100 mg capsule Discontinued 200 mg PO THREE TIMES A DAY as needed for cough 30 November 02, 2022 12:00am January 05, 2024 3:09pm Start: 11-02-2022 take 200 mg by mouth three times daily Benzonatate Active 200 MG PO THREE TIMES A DAY November 02, 2022 12:00am betamethasone 0.5 mg/ml topical cream (20 sources) Corticosteroid End: 07-17-2018 Betamethasone Dipropionate 0.05 % External Cream 1 qhs (0.05 %) End : 17-Jul-2018 Discontinued cefuroxime 500 mg oral tablet (20 sources) Cephalosporin Antibacterial Start: 10-22-2009 End: 11-05-2009 take 1 tablet by mouth twice daily CEFTIN, 500MG (Oral Tablet) 1 (one) Tablet bid for 14 days Quantity: 28 {Tablet} Refills: 0 Ordered: 15-Dec-2009 Debra Simms Start : 22-Oct-2009 End : 05-Nov-2009 Inactive 24 hr clarithromycin 500 mg extended release oral tablet (20 sources) Macrolide Antimicrobial Start: 05-24-2013 End: 06-03-2013 take 2 tablets by mouth once daily BIAXIN XL PAC, 500MG (Oral Tablet Extended Release 24 Hour) 2 (two) Tablet ER 24HR daily for 10 days Quantity: 20 {Tablet_ER_24HR} Refills: 0 Ordered: 24-May-2013 Debra Simms Start : 24-May-2013 End : 03-Jun-2013 Inactive Start: 05-24-2013 End: 06-03-2013 take 2 tablets by mouth once daily BIAXIN XL PAC, 500MG (Oral Tablet Extended Release 24 Hour) 2 (two) Tablet ER 24HR daily for 10 days Quantity: 20 {Tablet_ER_24HR} Refills: 0 Ordered: 24-May-2013 Mendez LY Debra Matthews Start : 24-May-2013 End : 03-Jun-2013 Inactive codeine phosphate 2 mg/ml / guaiFENesin 20 mg/ml oral solution (20 sources) Opioid Agonist Start: 10-06-2009 End: 12-24-2018 take 4 mL by mouth once daily at bedtime as needed for cough Cheratussin AC 100-10 MG/5ML Oral Solution 4 Milliliter qhs prn cough for 0 days Quantity: 120 {Milliliter} Refills: 0 Ordered: 24-Dec-2018 Jenny Rizvi RN Start : 17-Jul-2018 End : 24-Dec-2018 Inactive codeine phosphate 2 mg/ml / guaiFENesin 20 mg/ml / pseudoephedrine hydrochloride 6 mg/ml oral solution (20 sources) alpha-Adrenergic Agonist, Opioid Agonist Start: 05-24-2013 End: 06-20-2013 CHERATUSSIN DAC, 30-10-100MG/5ML (Oral Solution) 1 Teaspoon(s) q6-8 prn for 0 days Quantity: 6 {Ounce(s)} Refills: 0 Ordered: 20-Jun-2013 Jenny Rizvi RN Start : 24-May-2013 End : 20-Jun-2013 Inactive desloratadine 5 mg oral tablet (20 sources) Histamine-1 Receptor Antagonist Start: 09-29-2008 End: 07-01-2009 take 1 tablet by mouth once daily CLARINEX, 5MG (Oral Tablet) Tablet QD for 0 days Refills: 0 Ordered: 29-Sep-2008 Jenny Rizvi RN Start : 29-Sep-2008 End : 01-Jul-2009 Inactive desoximetasone 2.5 mg/ml topical cream (20 sources) Corticosteroid Start: 04-02-2009 End: 07-01-2009 TOPICORT, 0.25% (External Cream) 1 Cream bid for 0 days Quantity: 1 {Cream} Refills: 0 Ordered: 02-Apr-2009 Jenny Rizvi RN Start : 02-Apr-2009 End : 01-Jul-2009 Inactive Start: 11-27-2008 End: 07-01-2009 TOPICORT, 0.25% (External Oi ntment) 1 Ointment bid for 0 days Quantity: 1 {Ointment} Refills: 0 Ordered: 27-Nov-2008 Jenny Rizvi RN Start : 27-Nov-2008 End : 01-Jul-2009 Inactive diclofenac sodium 20 mg/ml topical solution (20 sources) Nonsteroidal Anti-inflammatory Drug Start: 12-24-2019 End: 04-30-2020 Pennsaid 2 % Transdermal Solution 1 (one) Pump bid for 0 days Quantity: 2 {Package} Refills: 0 Ordered: 30-Apr-2020 Laisha Chin CMA Start : 24-Dec-2019 End : 30-Apr-2020 Inactive doxycycline hyclate 100 mg oral tablet (20 sources) Tetracycline-class Drug Start: 10-22-2009 End: 11-05-2009 take 1 tablet by mouth twice daily DOXYCYCLINE HYCLATE, 100MG (Oral Tablet) 1 (one) Tablet bid for 14 days Quantity: 28 {Tablet} Refills: 0 Ordered: 15-Dec-2009 Debra Simms Start : 22-Oct-2009 End : 05-Nov-2009 Inactive 2 ml dupilumab 150 mg/ml prefilled syringe (1 source) Dupixent 300 MG/2ML Subcutaneous Solution Prefilled Syringe every other week (300 MG/2ML) Active escitalopram 10 mg oral tablet (20 sources) Serotonin Reuptake Inhibitor Start: 11-10-2006 End: 01-30-2007 take 1 tablet by mouth once daily LEXAPRO, 10MG (Oral Tablet) 1 (one) Tablet Daily for 0 days Quantity: 30 {Tablet} Refills: 0 Ordered: 10-Nov-2006 Natty Jaramillo LPN Start : 10-Nov-2006 End : 30-Jan-2007 Inactive famotidine 40 mg oral tablet (20 sources) Histamine-2 Receptor Antagonist Start: 05-09-2022 take 1 tablet by mouth twice daily Pepcid 40 MG Oral Tablet 1 (one) Tablet bid for 0 days Quantity: 60 {Tablet} Refills: 2 Ordered: 09-May-2022 Rachel Lo DO, DO, Kathleen Start : 09-May-2022 Active Start: 04-15-2021 take 1 tablet by dulce twice daily Pepcid 40 MG Oral Tablet 1 (one) Tablet bid for 0 days Quantity: 60 {Tablet} Refills: 2 Ordered: 15-Apr-2021 Cara Arteaga LPN Start : 15-Apr-2021 Active Start: 06-16-2017 End: 07-17-2018 take 1 tablet by mouth twice daily Pepcid 40 MG Oral Tablet 1 (one) Tablet bid for 0 days Quantity: 60 {Tablet} Refills: 2 Ordered: 17-Jul-2018 Shireen Vega Start : 16-Jun-2017 End : 17-Jul-2018 Discontinued Start: 11-27-2008 End: 07-01-2009 take 1 tablet by mouth twice daily PEPCID, 20MG (Oral Tablet) 1 (one) Tablet bid for 0 days Refills: 0 Ordered: 27-Nov-2008 Jenny Rizvi RN Start : 27-Nov-2008 End : 01-Jul-2009 Inactive fluconazole 150 mg oral tablet (20 sources) Azole Antifungal Start: 10-21-2021 End: 11-11-2022 take 1 tablet by mouth once daily Diflucan 150 mg oral tablet 1 (one) Tablet daily for 1 days Quantity: 1 {Tablet} Refills: 1 Ordered: 11-Nov-2022 Emiliano GABRIELAlissa Start : 21-Oct-2021 End : 11-Nov-2022 Inactive Start: 01-20-2020 End: 09-07-2020 take 1 tablet by mouth once daily Diflucan 150 MG Oral Tablet 1 (one) Tablet qd for 0 days Quantity: 1 {Tablet} Refills: 2 Ordered: 07-Sep-2020 Shiraz Gray LPN Start : 20-Jan-2020 End : 07-Sep-2020 Inactive FLUoxetine 10 mg oral tablet (20 sources) Serotonin Reuptake Inhibitor Start: 11-20-2008 End: 07-01-2009 PROZAC, 10MG (Oral Tablet) tad Tablet Daily for 0 days Quantity: 30 {Tablet} Refills: 1 Ordered: 20-Nov-2008 Jenny Rizvi RN Start : 20-Nov-2008 End : 01-Jul-2009 Inactive Comments: 1/2 tab daily for one week then 1 tab daily for one week then 2 tabs Comment on above: 1/2 tab daily for on e week then 1 tab daily for one week then 2 tabs frovatriptan 2.5 mg oral tablet (20 sources) Serotonin-1b and Serotonin-1d Receptor Agonist Start: 07-01-2009 FROVA, 2.5MG (Oral Tablet) 1 (one) Tablet daily at onset of borden may repeat 2 hr if needed for 0 days Refills: 0 Ordered: 01-Oct-2009 Jenny Rizvi RN Start : 01-Jul-2009 Inactive halobetasol propionate 0.5 mg/ml topical cream (20 sources) Corticosteroid Start: 01-04-2012 End: 01-13-2014 ULTRAVATE, 0.05% (External Cream) apply thin layer to affected Cream areas bid for 0 days Quantity: 15 {gram(s)} Refills: 0 Ordered: 13-Jan-2014 Jenny Rizvi RN Start : 04-Jan-2012 End : 13-Jan-2014 Inactive Start: 01-04-2012 End: 01-13-2014 ULTRAVATE, 0.05% (External C ream) apply thin layer to affected Cream areas bid for 0 days Quantity: 15 {gram(s)} Refills: 0 Ordered: 13-Jan-2014 Jenny Rizvi DYNO TECHNICIAN Start : 04-Jan-2012 End : 13-Jan-2014 Inactive levoFLOXacin 500 mg oral tablet (20 sources) Quinolone Antimicrobial Start: 09-29-2008 End: 11-20-2008 take 1 tablet by mouth once daily LEVAQUIN, 500MG (Oral Tablet) 1 Tablet QD for 0 days Quantity: 10 {Tablet} Refills: 0 Ordered: 29-Sep-2008 Criselda Rodriguez Start : 29-Sep-2008 End : 20-Nov-2008 Inactive Comments: will call if need void after 30 days Comment on above: will call if need vo id after 30 days loratadine 10 mg oral tablet (6 sources) Start: 01-22-2020 End: 01-05-2024 take 1 tablet by mouth once daily as needed Loratadine 10 MG tablet Discontinued 10 mg PO DAILY as needed for Allergies January 22, 2020 12:00am January 05, 2024 3:09pm LORazepam 0.5 mg oral tablet (20 sources) Benzodiazepine Start: 09-05-2011 End: 01-13-2014 take 1 tablet by mouth once daily as needed ATIVAN, 0.5MG (Oral Tablet) 1 (one) Tablet Daily prn for 0 days Quantity: 30 {Tablet} Refills: 0 Ordered: 13-Jan-2014 Jenny Rizvi RN Start : 05-Sep-2011 End : 13-Jan-2014 Inactive Comments: thirty Comment on above: thirty metaxalone 800 mg oral tablet (20 sources) Start: 03-01-2012 End: 01-13-2014 take 1 tablet by mouth three times daily as needed METAXALONE, 800MG (Oral Tablet) 1 Tablet tid prn for 0 days Quantity: 30 {Tablet} Refills: 1 Ordered: 13-Jan-2014 Jenny Rizvi RN Start : 01-Mar-2012 End : 13-Jan-2014 Inactive Start: 11-11-2010 End: 01-28-2011 take 1 tablet by mouth once daily SKELAXIN, 800MG (Oral Tablet) 1 (one) Tablet take for muscle relaxation once daily for 0 days Quantity: 15 {Tablet} Refills: 0 Ordered: 28-Jan-2011 JOCELYN Strong LPN Start : 11-Nov-2010 End : 28-Jan-2011 Inactive methylPREDNISolone 4 mg oral tablet (9 sources) Corticosteroid Start: 11-02-2022 End: 11-08-2022 take 1 tablet by mouth once Methylprednisolone (Medrol (Berto)) 4 mg tablets,dose pack Discontinued 4 mg PO per package directions 21 6 0 November 02, 2022 12:00am November 07, 2022 12:00am November 08, 2022 12:04am Start: 08-24-2021 End: 08-29-2021 take 1 tablet by mouth once Methylprednisolone (Medrol (Berto)) 4 mg tablets,dose pack Discontinued 4 mg PO per package directions 21 5 0 August 24, 2021 1:00am August 28, 2021 1:00am August 29, 2021 1:01am mometasone furoate 0.05 mg/actuat metered dose nasal spray (20 sources) Corticosteroid Start: 03-01-2012 End: 01-13-2014 NASONEX, 50MCG/ACT (Nasal Suspension) 2 (two) Suspension qd for 0 days Quantity: 1 {Suspension} Refills: 0 Ordered: 13-Jan-2014 Jenny Rizvi RN Start : 01-Mar-2012 End : 13-Jan-2014 Inactive moxifloxacin 400 mg oral tablet (20 sources) Quinolone Antimicrobial Start: 12-15-2009 take 1 tablet by mouth once daily AVELOX, 400MG (Oral Tablet) 1 (one) Tablet qd for 0 days Quantity: 10 {Tablet} Refills: 0 Ordered: 15-Jan-2010 Cyndi London Start : 15-Dec-2009 Inactive mycophenolate mofetil 500 mg oral tablet (20 sources) End: 07-17-2018 take 2 tablets by mouth twice daily CellCept 500 MG Oral Tablet 2 bid (500 MG) End : 17-Jul-2018 Discontinued naproxen 500 mg oral tablet (20 sources) Nonsteroidal Anti-inflammatory Drug Start: 12-24-2019 End: 04-30-2020 take 1 tablet by mouth twice daily at mealtime Naproxen 500 MG Oral Tablet 1 (one) Tablet bid for 0 days Quantity: 30 {Tablet} Refills: 0 Ordered: 30-Apr-2020 Laisha Chin CMA Start : 24-Dec-2019 End : 30-Apr-2020 Inactive Comments: with food Comment on above: with food Nordet 28 (19 sources) End: 05-17-2006 Nordet 28 End : 17-May-2006 Discontinued ofloxacin 3 mg/ml ophthalmic solution (20 sources) Quinolone Antimicrobial Start: 01-15-2010 End: 08-30-2010 OCUFLOX, 0.3% (Ophthalmic Solution) 1 Solution BID for 0 days Quantity: 1 {Solution} Refills: 0 Ordered: 30-Aug-2010 JOCELYN Strong LPN Start : 15-Jan-2010 End : 30-Aug-2010 Inactive ondansetron 8 mg oral tablet (6 sources) Serotonin-3 Receptor Antagonist Start: 01-29-2020 End: 04-21-2020 take 1 tablet by mouth every eight hours as needed for nausea Ondansetron Hcl 8 MG tablet Discontinued 8 mg PO EVERY 8 HOURS NEEDED as needed for Nausea 20 0 January 29, 2020 12:00am April 21, 2020 10:08am oseltamivir 75 mg oral capsule (20 sources) Neuraminidase Inhibitor Start: 08-06-2014 End: 08-11-2014 take 1 capsule by mouth twice daily TAMIFLU, 75MG (Oral Capsule) 1 (one) Capsule bid for 5 days Quantity: 10 {Capsule} Refills: 0 Ordered: 06-Aug-2014 Debra Simms Start : 06-Aug-2014 End : 11-Aug-2014 Inactive oxyCODONE hydrochloride 5 mg oral tablet (2 sources) Opioid Agonist Start: 01-06-2024 End: 01-12-2024 take 5-10 mg by mouth every four hours as needed for pain Oxycodone 5 mg Tablet Discontinued 5 - 10 mg PO EVERY 4 HOURS NEEDED as needed for Pain Score 4-10 15 5 0 January 06, 2024 January 12, 2024 7:29am Acute appendicitis Unspecified acute appendicitis phentermine hydrochloride 37.5 mg oral capsule (20 sources) Sympathomimetic Amine Anorectic Start: 01-30-2023 End: 02-27-2023 take 1 capsule by mouth once daily Adipex-P 37.5 mg oral capsule 1 Capsule daily for 0 days Quantity: 30 {Capsule} Refills: 0 Ordered: 27-Feb-2023 Rachel Lo DO, DO, Kathleen Start : 30-Jan-2023 End : 27-Feb-2023 Inactive Comments: thirty- BMI 38wt 222ok to fill on 12/25/22 Start: 01-27-2023 take 1 capsule by mo uth once daily Adipex-P 37.5 mg oral capsule 1 Capsule daily for 0 days Quantity: 30 {Capsule} Refills: 0 Ordered: 27-Jan-2023 Rachel Lo DO, DO, Kathleen Start : 27-Jan-2023 Active Comments: thirty- BMI 38wt 222ok to fill on 12/25/22 Start: 12-23-2022 take 1 capsule by mo uth once daily Adipex-P 37.5 mg oral capsule 1 Capsule daily for 0 days Quantity: 30 {Capsule} Refills: 0 Ordered: 23-Dec-2022 Rachel Lo DO, DO, Kathleen Start : 23-Dec-2022 Active Comments: thirty- BMI 38wt 222ok to fill on 12/25/22 Start: 11-25-2022 take 1 capsule by mo uth once daily Adipex-P 37.5 mg oral capsule 1 Capsule daily for 0 days Quantity: 30 {Capsule} Refills: 0 Ordered: 25-Nov-2022 Rachel Lo DO, DO, Kathleen Start : 25-Nov-2022 Active Comments: thirty- BMI 38wt 232 Start: 07-25-2013 End: 01-13-2014 take 1 capsule by mouth once daily ADIPEX-P, 37.5MG (Oral Capsule) 1 Capsule daily for 0 days Quantity: 30 {Capsule} Refills: 0 Ordered: 13-Jan-2014 Jenny Rizvi RN Start : 25-Jul-2013 End : 13-Jan-2014 Inactive Comments: thirty- BMI 32.9wt 190.9 bmi 31 Comment on above: thirty- BMI 32.9wt 1 90.9 bmi 31 thirty- BMI 38wt 232 thirty- BMI 38wt 222 ok to fill on 12/25/22 predniSONE 20 mg oral tablet (20 sources) Start: 05-24-2013 End: 06-20-2013 take 2 tablets by mouth twice daily PREDNISONE, 20MG (Oral Tablet) 1 Tablet uad for 0 days Quantity: 8 {QS} Refills: 0 Ordered: 20-Jun-2013 Jenny Rizvi RN Start : 24-May-2013 End : 20-Jun-2013 Inactive Comments: 2 tabs bid x 2 days Start: 04-02-2009 End: 07-01-2009 take 3 tablets by mouth once daily PREDNISONE, 10MG (Oral Tablet) 3 (three) Tablet daily for 7 days Quantity: 21 {Tablet} Refills: 0 Ordered: 02-Apr-2009 Debra Simms Start : 02-Apr-2009 End : 01-Jul-2009 Inactive Comment on above: 2 tabs bid x 2 days (1 source) End: 9 take 1 tablet by mouth once daily , 27-1MG (Oral Tablet) 1 qd for 0 days Refills: 0 Ordered: 20-Nov-2008 Criselda Rodriguez End : 20-Nov-2008 Inactive , 27-1MG (Oral Tablet) (20 sources) End: 9 take 1 tablet by mouth once daily , 27-1MG (Oral Tablet) 1 qd for 0 days Refills: 0 Ordered: 20-Nov-2008 Criselda Rodriguez End : 20-Nov-2008 Inactive promethazine hydrochloride 25 mg rectal suppository (20 sources) Phenothiazine Start: 1 End: 1 PROMETHAZINE HCL, 25MG (Rectal Suppository) 1 Suppository q6-8 hrs prn nausea for 0 days Quantity: 10 {Suppository} Refills: 0 Ordered: 28-Jan-2011 JOCELYN Strong LPN Start : 11-Nov-2010 End : 28-Jan-2011 Inactive triamcinolone acetonide 0.055 mg/actuat metered dose nasal spray (20 sources) Corticosteroid Start: 9 End: 9 NASACORT AQ, 55MCG/ACT (Nasal Aerosol Solution) Aerosol Soln QD for 0 days Quantity: 1 {Aerosol_Soln} Refills: 0 Ordered: 29-Sep-2008 Criselda Rodriguez Start : 29-Sep-2008 End : 20-Nov-2008 Inactive Start: 09-29-2008 End: 11-20-2008 NASACORT AQ, 55MCG/ACT (Nasa l Aerosol Solution) Aerosol Soln QD for 0 days Quantity: 1 {Aerosol_Soln} Refills: 0 Ordered: 29-Sep-2008 Criselda Rodriguez Start : 29-Sep-2008 End : 20-Nov-2008 Inactive valACYclovir 1000 mg oral tablet (20 sources) Herpesvirus Nucleoside Analog DNA Polymerase Inhibitor, Herpes Simplex Virus Nucleoside Analog DNA Polymerase Inhibitor, Herpes Zoster Virus Nucleoside Analog DNA Polymerase Inhibitor Start: 03-04-2014 End: 12-13-2016 take 2 tablets by mouth twice daily Valtrex 1 GM Oral Tablet 2 (two) Tablet Tablet bid for 1 days Quantity: 4 {Tablet} Refills: 2 Ordered: 13-Dec-2016 Jenny Rizvi RN Start : 04-Mar-2014 End : 13-Dec-2016 Inactive Problems Active Problems Problem Classification Problem Date Documented Da te Episodic/Chronic Acquired foot deformities (20 sources) Pes planus Episodic Acute bronchitis (20 sources) Acute bronchitis; Translations: [Bronchitis, acute] 07-17-2018 Episodic Administrative/social admission (20 sources) Medical examinations/reports status; Translations: [Patient encounter status] 12-13-2016 Episodic Allergic reactions (20 sources) Acute allergic reaction; Translations: [Contact dermatitis due to poison tasneem] Resolved: 02-02-2009 09-24-2015 Episodic Anxiety disorders (20 sources) Anxiety; Translations: [Anxiety] 07-17-2018 Chronic Comment on above: wax and wane Appendicitis and other appendiceal conditions (4 sources) Acute appendicitis with localized peritonitis; Translations: [Acute appendicitis with localized peritonitis, without perforation or gangrene] 01-13-2024 Episodic Cardiac dysrhythmias (20 sources) Palpitations; Translations: [Palpitations] 07-17-2018 Episodic Comment on above: ? stres sound like P VC's will get holter. will check labs. with sinus arrhthymia will check echo Chronic obstructive pulmonary disease and bronchiectasis (20 sources) Bronchitis; Translations: [Bronchitis] Resolved: 12-15-2022 07-17-2018 Episodic Deficiency and other anemia (20 sources) Anemia due to chronic blood loss; Translations: [Chronic blood loss anemia] Resolved: 12-30-2008 07-16-2015 Chronic Comment on above: MISCARRIAGE AND DAND C-- TAKING FE AND MVI Deficiency and other anemia (20 sources) Deficiency and other anemia Diseases of white blood cells (2 sources) Leukocytosis; Translations: [Elevated white blood cell count, unspecified] 01-13-2024 Chronic Disorders of lipid metabolism (20 sources) Hyperlipidemia; Translations: [Hyperlipidemia] Onset: 04-02-2025 07-17-2018 Chronic Comment on above: pt wants to do lifes tyle and dietary chg actively working on wt loss and increasing exerviuse- disc rx if not at goal 6-12 mo Esophageal disorders (20 sources) Gastro-esophageal reflux disease without esophagitis; Translations: [Gastroesophageal reflux disease without esophagitis] 07-17-2018 Chronic Fever of unknown origin (20 sources) Fever with chills; Translations: [Fever and chills] 07-17-2018 Episodic Fluid and electrolyte disorders (2 sources) Hypokalemia; Translations: [Hypokalemia] 01-13-2024 Episodic Gastrointestinal hemorrhage (20 sources) Rectal hemorrhage; Translations: [Rectal bleed] Resolved: 04-30-2020 07-17-2018 Episodic Headache; including migraine (20 sources) Migraine with aura; Translations: [Migraine with aura and without status migrainosus, not intractable] Resolved: 12-30-2008 07-17-2018 Chronic Comment on above: massotherapy Headache; including migraine (20 sources) Tension-type headache; Translations: [Headache] Resolved: 12-30-2008 06-30-2015 Episodic Comment on above: massotherapy muscle tension, sinu s possibly migraine-- cont otc analgesics prn if no better or worse call for reeval Hemorrhoids (20 sources) Unspecified hemorrhoids with other complication; Translations: [Hemorrhoids] Resolved: 12-30-2008 05-02-2013 Episodic Immunizations and screening for infectious disease (20 sources) Patient encounter status; Translations: [Screening for HPV (human papillomavirus)] Resolved: 11-25-2022 04-15-2021 Episodic Inflammation; infection of eye (except that caused by tuberculosis or sexually transmitteddisease) (20 sources) Serous conjunctivitis; Translations: [Acute conjunctivitis] Onset: 01-15-2010 07-17-2018 Episodic Influenza (20 sources) Influenza; Translations: [Influenza] 07-17-2018 Episodic Comment on above: Positive A but did g et flu shot Malaise and fatigue (20 sources) Fatigue; Translations: [Fatigue] 05-09-2022 Episodic Miscellaneous mental health disorders (19 sources) depression Episodic Mycoses (20 sources) Mycosis; Translations: [Yeast infection] Resolved: 11-25-2022 04-30-2020 Episodic Nausea and vomiting (20 sources) Nausea; Translations: [Nausea] Resolved: 11-25-2022 07-17-2018 Episodic Other acquired deformities (20 sources) Scoliosis deformity of spine; Translations: [Scoliosis] 07-17-2018 Chronic Other bone disease and musculoskeletal deformities (20 sources) Idiopathic scoliosis AND/OR kyphoscoliosis; Translations: [Scoliosis (and kyphoscoliosis), idiopathic] Resolved: 12-30-2008 05-02-2013 Chronic Other complications of (20 sources) Mental disorders of mother, unspecified as to episode of care or not applicable; Translations: [ DEPRESSION] Resolved: 01-17-2008 05-02-2013 Episodic Other congenital anomalies (20 sources) Congenital pes planus; Translations: [Pes planus] Onset: 09-05-2011 07-17-2018 Chronic Other connective tissue disease (20 sources) Foot pain; Translations: [Foot pain] 07-17-2018 Episodic Other connective tissue disease (20 sources) Spasm; Translations: [Muscle spasm] Resolved: 12-30-2008 05-02-2013 Episodic Comment on above: ORDER FOR MASSAGE TH ERAPY Other connective tissue disease (20 sources) Leg swelling symptom; Translations: [Swelling of lower limb] Resolved: 11-25-2022 09-11-2020 Episodic Comment on above: bilateral, resolved with bethqmethasone cream and compression and elevation Other ear and sense organ disorders (20 sources) Otalgia; Translations: [Otalgia, unspecified ear] 07-17-2018 Episodic Comment on above: ?? etiology TMJ cont rib-- lots of stressors latley-- start wearing bite plate Other ear and sense organ disorders (8 sources) Pain of ear structure; Translations: [Otalgia, unspecified ear] 01-30-2023 Episodic Comment on above: ?? etiology TMJ cont rib-- lots of stressors latley-- start wearing bite plate Other gastrointestinal disorders (20 sources) Constipation; Translations: [Constipation] Resolved: 12-30-2008 05-26-2015 Episodic Other gastrointestinal disorders (20 sources) Personal history of other diseases of the digestive system; Translations: [History of irritable bowel syndrome] 07-17-2018 Episodic Other gastrointestinal disorders (20 sources) Constipation, unspecified; Translations: [Acute constipation] Resolved: 11-25-2022 07-17-2018 Episodic Other gastrointestinal disorders (20 sources) Diarrhea; Translations: [Diarrhea] Resolved: 04-30-2020 02-21-2019 Episodic Other hematologic conditions (20 sources) ESR raised; Translations: [Elevated sed rate] Resolved: 04-28-2023 09-11-2020 Episodic Other injuries and conditions due to external causes (2 sources) Injury of medial collateral ligament of knee; Translations: [Sprain and strain of medial collateral ligament of knee] 04-30-2020 Episodic Other liver diseases (1 source) Abnormal levels of other serum enzymes; Translations: [Abnormal levels of other serum enzymes] Onset: 04-04-2025 Episodic Other lower respiratory disease (20 sources) Cough; Translations: [Cough] Resolved: 11-25-2022 07-17-2018 Episodic Other lower respiratory disease (20 sources) Wheezing; Translations: [Wheezing] 07-17-2018 Episodic Other non-traumatic joint disorders (20 sources) Hip pain; Translations: [Left hip pain] Resolved: 05-09-2022 12-24-2018 Episodic Other non-traumatic joint disorders (20 sources) Knee pain; Translations: [Pain in right knee] 12-27-2019 Episodic Other non-traumatic joint disorders (2 sources) Pain in wrist; Translations: [Pain in joint, forearm] 04-27-2021 Episodic Other non-traumatic joint disorders (20 sources) Pain in right knee; Translations: [Knee pain, right] Resolved: 05-09-2022 04-15-2021 Episodic Other nutritional; endocrine; and metabolic disorders (20 sources) Obesity; Translations: [Obesity] 07-17-2018 Chronic Other nutritional; endocrine; and metabolic disorders (20 sources) Body mass index 30+ - obesity; Translations: [BMI 32.0-32.9,adult] Resolved: 02-27-2023 07-17-2018 Chronic Other nutritional; endocrine; and metabolic disorders (20 sources) Weight gain; Translations: [Weight gain] 07-17-2018 Episodic Other nutritional; endocrine; and metabolic disorders (20 sources) Decrease in appetite; Translations: [Decreased appetite] Resolved: 04-28-2023 02-21-2019 Episodic Other skin disorders (20 sources) Eruption; Translations: [Rash] Resolved: 02-02-2009 05-02-2013 Episodic Comment on above: ?rash occured 2 week s after covid vaccine sent to [facility] did not think erythema nodosum, was put on bethamethasone and compression with resolution Other upper respiratory infections (20 sources) Acute pharyngitis; Translations: [Acute sinusitis] 07-17-2018 Episodic Otitis media and related conditions (20 sources) Dysfunction of eustachian tube; Translations: [Eustachian tube dysfunction] Resolved: 05-02-2013 05-19-2015 Episodic Pneumonia (except that caused by tuberculosis or sexually transmitted disease) (20 sources) Bacterial pneumonia; Translations: [Pneumonia, bacterial] 07-17-2018 Episodic Residual codes; unclassified (20 sources) Family history of malignant neoplasm of breast; Translations: [Family history of breast cancer] 07-17-2018 Episodic Comment on above: will do baseline at 37 yrs old-- grandmother dx at age 64-- Residual codes; unclassified (20 sources) Family history of cancer of colon; Translations: [Family history of colon cancer] 07-17-2018 Episodic Residual codes; unclassified (20 sources) Non-smoker; Translations: [Nonsmoker] 04-15-2021 Episodic Sexually transmitted infections (not HIV or hepatitis) (20 sources) Chancroid; Translations: [Soft sore (chancroid)] 07-17-2018 Episodic Comment on above: herpes lip and mouth Spondylosis; intervertebral disc disorders; other back problems (20 sources) Backache; Translations: [Backache] Resolved: 12-30-2008 05-20-2015 Episodic Spontaneous (20 sources) Spontaneous , without mention of complication, unspecified; Translations: [MISCARRIAGE, NOS] Resolved: 12-30-2008 05-02-2013 Episodic Sprains and strains (20 sources) Rupture of anterior cruciate ligament; Translations: [ACL tear] Resolved: 04-28-2023 04-30-2020 Episodic Comment on above: R knee -- s/p repair Unclassified (20 sources) OBESITY NOS (278.00) Unclassified (20 sources) Unclassified (20 sources) Scoliosis (and kyphoscoliosis), idiopathic (737.30) Unclassified (20 sources) Backache, unspecified (724.5) Unclassified (19 sources) Muscle spasm (728.85) Unclassified (2 sources) LT WRIST INJURY 04-27-2021 Comment on above: LT WRIST INJURY Unclassified (20 sources) Headache,Migraine (346.00) Unclassified (7 sources) MISCARRIAGE, NOS (634.90) Unclassified (7 sources) Anemia,Blood Loss(Chronic) (280.0) Past or Other Problems Problem Classification Problem Date Documented Date Episodic/Chronic Acute bronchitis (7 sources) Acute bronchitis Chronic obstructive pulmonary disease and bronchiectasis (20 sources) Chronic obstructive pulmonary disease and bronchiectasis Esophageal disorders (20 sources) Esophageal disorders Headache; including migraine (20 sources) Headache; including migraine Other non-traumatic joint disorders (4 sources) Pain in right knee; Translations: [Right knee pain] 12-27-2019 Other screening for suspected conditions (not mental disorders or infectious disease) (20 sources) Elevated C-reactive protein; Translations: [CRP elevated] Onset: 11-07-2024 Resolved: 04-28-2023 04-15-2021 Episodic Other screening for suspected conditions (not mental disorders or infectious disease) (1 source) Elevated C-reactive protein; Translations: [CRP elevated] 09-11-2020 Pneumonia (except that caused by tuberculosis or sexually transmitted disease) (19 sources) Pneumonia (except that caused by tuberculosis or sexually transmitted disease) Unclassified (20 sources) Migraine with aura and without status migrainosus, not intractable Unclassified (20 sources) Family Planning; Translations: [Patient encounter status] 07-17-2018 Unclassified (19 sources) Work Physical (V70.5) Unclassified (20 sources) Rash (782.1) Unclassified (20 sources) Patient encounter status; Translations: [Encounter for pre-employment examination] 07-17-2018 Unclassified (20 sources) Non-smoker; Translations: [Nonsmoker] 07-17-2018 Unclassified (20 sources) Annual physical exam (V70.0) Unclassified (19 sources) Allergic Reaction/Allergies (995.3) Unclassified (20 sources) Unspecified Diagnosis 07-17-2018 Unclassified (20 sources) CONTACT DERMATITIS D/T POISON TASNEEM, (692.6) Unclassified (19 sources) SYMPTOM, NAUSEA ALONE (787.02) Unclassified (19 sources) BMI 32.0-32.9,adult Unclassified (19 sources) BMI 33.0-33.9,adult Unclassified (20 sources) BMI 34.0-34.9,adult Unclassified (20 sources) Annual physical exam Unclassified (19 sources) Family history of breast cancer Unclassified (20 sources) Body mass index 35.0-35.9, adult Unclassified (19 sources) Family history of colon cancer Unclassified (19 sources) Rectal bleed Unclassified (19 sources) Constipation, acute Unclassified (19 sources) History of IBS Unclassified (19 sources) Physical exam Unclassified (19 sources) Pharyngitis, acute Unclassified (19 sources) Eustachian tube dysfunction (381.81) Unclassified (20 sources) Weight gain (783.1) Unclassified (19 sources) Soft sore (chancroid) Unclassified (19 sources) SCREENING FOR HUMAN PAPILLOMAVIRUS (HPV) (V73.81) Unclassified (19 sources) Well Woman Exam (V72.31) (Pap,Mammo,Routine Female) (Renamed from Well Woman V72.31 (p,m)) Unclassified (19 sources) Otalgia, unspecified (388.70) Unclassified (12 sources) Decreased appetite Unclassified (12 sources) Nauseated Unclassified (10 sources) Encounter for gynecological examination without abnormal finding Unclassified (10 sources) Screening for HPV (human papillomavirus) Unclassified (10 sources) Encounter for screening for lipid disorder Unclassified (11 sources) Rupture of anterior cruciate ligament of left knee; Translations: [Left ACL tear] 12-27-2019 Unclassified (9 sources) Well woman exam (Renamed from Encounter for well woman exam) Unclassified (9 sources) Yeast infection Unclassified (20 sources) BMI 37.0-37.9, adult Unclassified (9 sources) Knee pain, right Unclassified (9 sources) ACL tear Unclassified (9 sources) Sprain and strain of medial collateral ligament of knee Unclassified (16 sources) BMI 38.0-38.9,adult Unclassified (8 sources) CRP elevated Unclassified (8 sources) Elevated sed rate Unclassified (13 sources) Non-smoker Unclassified (7 sources) Encounter for well adult exam with abnormal findings Unclassified (6 sources) Yeast infection of the vagina Unclassified (4 sources) Routine check-up Viral infection (20 sources) Mononucleosis syndrome; Translations: [Mononucleosis Syndrome] Resolved: 08-30-2010 05-02-2013 Episodic Viral infection (20 sources) Disease caused by 2019-nCoV Results Test Name Value Interpretation Reference Range Facility Absolute lymphocyte countOrd ered By: HEALTH ASSESSMENT on 03-31-2025 Lymphocytes Auto (Unsp spec) [#/Vol] 1.70 10*3/uL 0.83-4.51 [facility] Absolute neutrophil countOrd ered By: HEALTH ASSESSMENT on 03-31-2025 Neutrophils (Bld) [#/Vol] 4.2 10*3/uL 2.0-7.7 [facility] Absolute nucleated red blood cell countOrdered By: HEALTH ASSESSMENT on 03-31-2025 Nucleated RBC (Bld) [#/Vol] 0.00 10*3/uL 0-5 [facility] Anion gap in Serum or Plasma Ordered By: HEALTH ASSESSMENT on 03-31-2025 Anion gap [Moles/Vol] 11 mmol/L 5-15 [facility] BUN/creatinine ratioOrdered By: HEALTH ASSESSMENT on 03-31-2025 Urea nitrogen/Creatinine [Mass ratio] 19.0 mg/mg 10-20 [facility] Comment on above: Previous reported re sult: 18.4 RATIOEdited by: [employer] on 03/31/25:1235 AMENDED REPORT 03/31/25 1235 BUN/CRE previously reported as: 18.4 RATIO Bilirubin Test strip Ql (U)O rdered By: HEALTH ASSESSMENT on 03-31-2025 Bilirubin Ql (U) Negative Negative [facility] Bilirubin directOrdered By: HEALTH ASSESSMENT on 03-31-2025 Bilirubin.direct [Mass/Vol] 0.16 mg/dL 0.00-0.30 [facility] Comment on above: Previous reported re sult: 0.18 mg/dLEdited by: [employer] on 03/31/25:1235 AMENDED REPORT 03/31/25 1235 D BILI previously reported as: 0.18 mg/dL Bilirubin, totalOrdered By: HEALTH ASSESSMENT on 03-31-2025 Bilirubin [Mass/Vol] 0.46 mg/dL 0.00-1.30 [facility] Comment on above: Previous reported re sult: 0.41 mg/dLEdited by: [employer] on 03/31/25:1235 AMENDED REPORT 03/31/25 1235 T BILI previously reported as: 0.41 mg/dL CBC, Employeeon 03-31-2025 Absolute Lymph 1.70 X10 3/uL Normal 0.83-4.51 [facility] Comment on above: Performed By: #### L 100.0200, L400.0100, [id number] #### [facility] [address] [place], [address] Absolute Neut 4.2 X10 3/uL Normal 2.0-7.7 [facility] Comment on above: Performed By: #### L 100.0200, L400.0100, [id number] #### [facility] [address] [place], [address] Basophils/100 WBC (Bld) 0.5 % Normal 0-1 [facility] Comment on above: Performed By: #### L 100.0200, L400.0100, [id number] #### [facility] [address] [place], [address] Eosinophils/100 WBC (Bld) 2.0 % Normal 0-5 [facility] Comment on above: Performed By: #### L 100.0200, L400.0100, [id number] #### [facility] [address] [place], [address] Erythrocyte distribution width (RBC) [Ratio] 12.0 % Normal 11.6-14.6 [facility] Comment on above: Performed By: #### L 100.0200, L400.0100, [id number] #### [facility] [address] [place], [address] Hematocrit (Bld) [Volume fraction] 38.6 % Normal 37-47 [facility] Comment on above: Performed By: #### L 100.0200, L400.0100, [id number] #### [facility] [address] [place], [address] Hemoglobin (Bld) [Mass/Vol] 13.0 g/dL Normal 12.0-15.0 [facility] Comment on above: Performed By: #### L 100.0200, L400.0100, [id number] #### [facility] [address] [place], [address] Lymphocytes/100 WBC (Bld) 26.0 % Normal 19-41 [facility] Comment on above: Performed By: #### L 100.0200, L400.0100, [id number] #### [facility] [address] [place], [address] MCH (RBC) [Entitic mass] 29.7 pg Normal 27.0-32.0 [facility] Comment on above: Performed By: #### L 100.0200, L400.0100, [id number] #### [facility] [address] [place], [address] MCHC (RBC) [Mass/Vol] 33.7 g/dL Normal 32-36 [facility] Comment on above: Performed By: #### L 100.0200, L400.0100, [id number] #### [facility] [address] [place], [address] MCV (RBC) [Entitic vol] 88.1 fL Normal 81-99 [facility] Comment on above: Performed By: #### L 100.0200, L400.0100, [id number] #### [facility] [address] [place], [address] Monocytes/100 WBC (Bld) 7.0 % Normal 0-10 [facility] Comment on above: Performed By: #### L 100.0200, L400.0100, L500.2900 #### [facility] [address] [place], [address] Neutrophils/100 WBC (Bld) 64.3 % Normal 47-70 [facility] Comment on above: Performed By: #### L 100.0200, L400.0100, L500.2900 #### [facility] [address] [place], [address] NRBC # 0.00 10 3/uL Normal 0-5 [facility] Comment on above: Performed By: #### L 100.0200, L400.0100, L500.2900 #### [facility] [address] [place], [address] Nucleated RBC (Bld) [#/Vol] 0 10*3/uL Normal 0-5 [facility] Comment on above: Performed By: #### L 100.0200, L400.0100, L500.2900 #### [facility] [address] [place], [address] Platelet mean volume (Bld) [Entitic vol] 10.3 fL Normal 6.2-12.0 [facility] Comment on above: Performed By: #### L 100.0200, L400.0100, L500.2900 #### [facility] [address] [place], [address] Platelets (Bld) [#/Vol] 289 10*3/uL Normal 150-450 [facility] Comment on above: Performed By: #### L 100.0200, L400.0100, L500.2900 #### [facility] [address] [place], [address] RBC (Bld) [#/Vol] 4.38 10*6/uL Normal 4.2-5.4 [facility] Comment on above: Performed By: #### L 100.0200, L400.0100, L500.2900 #### [facility] [address] [place], [address] RDW SD 38.7 fl Normal 35.1-43.9 [facility] Comment on above: Performed By: #### L 100.0200, L400.0100, L500.2900 #### [facility] [address] [place], [place], [id number] WBC (Bld) [#/Vol] 6.6 10*3/uL Normal 4.4-11.0 [facility] Comment on above: Performed By: #### L 100.0200, L400.0100, L500.2900 #### [facility] [address] [place], [address] Calculated very low density lipoprotein (VLDL) cholesterol measurementOrdered By: HEALTH ASSESSMENT on 03-31-2025 Calculated very low density lipoprotein (VLDL) cholesterol measurement 14 mg/dL 5-40 [facility] Carbon dioxide, total [Moles /volume] in Central venous bloodOrdered By: HEALTH ASSESSMENT on 03-31-2025 CO2 [Moles/Vol] 21.7 mmol/L 21.0-32.0 [facility] Comment on above: Previous reported re sult: 21.8 mmol/LEdited by: JOSE M on 03/31/25:1235 AMENDED REPORT 03/31/25 1235 CO2 previously reported as: 21.8 mmol/L Chloride assayOrdered By: JEFFERSON ALTH ASSESSMENT on 03-31-2025 Chloride [Moles/Vol] 106 mmol/L 98-108 [facility] Employee Profileon 5 LDH 179 U/L Normal 84-246 [facility] Comment on above: Performed By: #### L 100.0200, L400.0100, L500.2900 #### [facility] [address] [place], [place], [id number] Phosphate [Mass/Vol] 3.2 mg/dL Normal 2.7-4.5 [facility] Comment on above: Performed By: #### L 100.0200, L400.0100, L500.2900 #### [facility] [address] [place], [place], [id number] URIC 3.5 mg/dL Normal 2.6-6.0 [facility] Comment on above: Result Comment: The drugs N-Acetylcysteine and Metamizole may falsely depress this assay. Performed By: #### L 100.0200, L400.0100, L500.2900 #### [facility] [address] [place], [place], [address] Erythrocyte distribution wid th ratioOrdered By: HEALTH ASSESSMENT on 03-31-2025 Erythrocyte distribution width (RBC) [Ratio] 12.0 % 11.6-14.6 [facility] Erythrocyte distribution wid th standard deviationOrdered By: HEALTH ASSESSMENT on 03-31-2025 Erythrocyte distribution width (RBC) [Ratio] 38.7 fl 35.1-43.9 [facility] Glomerular filtration rate ( GFR) estimation/1.73 sq m using serum, plasma, or whole bOrdered By: HEALTH ASSESSMENT on 03-31-2025 GFR/1.73 sq M.predicted among non-blacks MDRD (S/P/Bld) [Vol rate/Area] 110 mL/min/{1.73_m2} >60 [facility] Comment on above: mL/min/1.73m2 CKD-EP I Creatinine Equation (2020) Hematocrit Auto (Bld) [Volum e fraction]Ordered By: HEALTH ASSESSMENT on 03-31-2025 Hematocrit (Bld) [Volume fraction] 38.6 % 37-47 [facility] Hemoglobin measurementOrdere d By: HEALTH ASSESSMENT on 03-31-2025 Hemoglobin (Bld) [Mass/Vol] 13.0 g/dL 12.0-15.0 [facility] Ketones Test strip Ql (U)Ord ered By: HEALTH ASSESSMENT on 03-31-2025 Ketones Ql (U) Negative Negative [facility] LDL calc ser/plasOrdered By: HEALTH ASSESSMENT on 03-31-2025 Cholesterol in LDL [Mass/Vol] 132 mg/dL [facility] Comment on above: Ksanhqtyrv=866-335 m g/dL & Higher Oywf=930 mg/dL or greaterFriedwald Equation for LDL-C Laboratory - Chemistry and C hemistry - challengeOrdered By: HEALTH ASSESSMENT on 03-31-2025 AST [Catalytic activity/Vol] 47 U/L High <32 [facility] Lactate dehydrogenase (LDH) measurementOrdered By: HEALTH ASSESSMENT on 03-31-2025 LDH [Catalytic activity/Vol] 179 U/L 84-246 [facility] MCV (mean corpuscular volume ) determinationOrdered By: HEALTH ASSESSMENT on 03-31-2025 MCV (RBC) [Entitic vol] 88.1 fL 81-99 [facility] Mean corpuscular hemoglobin (MCH) determinationOrdered By: HEALTH ASSESSMENT on 03-31-2025 MCH (RBC) [Entitic mass] 29.7 pg 27.0-32.0 [facility] Mean corpuscular hemoglobin concentration (MCHC) determinationOrdered By: HEALTH ASSESSMENT on 03-31-2025 MCHC (RBC) [Mass/Vol] 33.7 g/dL 32-36 [facility] Mean platelet volume determi nationOrdered By: HEALTH ASSESSMENT on 03-31-2025 Platelet mean volume (Bld) [Entitic vol] 10.3 fL 6.2-12.0 [facility] Neutrophil percentageOrdered By: HEALTH ASSESSMENT on 03-31-2025 Neutrophils/100 WBC (Bld) 64.3 % 47-70 [facility] Nitrite Test strip Ql (U)Ord ered By: HEALTH ASSESSMENT on 03-31-2025 Nitrite Ql (U) Negative Negative [facility] Nucleated red blood cell per centageOrdered By: HEALTH ASSESSMENT on 03-31-2025 Nucleated RBC/100 WBC (Bld) [Ratio] 0 % 0-5 [facility] Platelet countOrdered By: HE ALTH ASSESSMENT on 03-31-2025 Platelets (Bld) [#/Vol] 289 10*3/uL 150-450 [facility] Potassium measurement (mass/ volume)Ordered By: HEALTH ASSESSMENT on 03-31-2025 Potassium (Unsp spec) [Mass/Vol] 4.5 mmol/L 3.3-5.1 [facility] Protein Test strip Ql (U)Ord ered By: HEALTH ASSESSMENT on 03-31-2025 Protein Ql (U) 15 mg/dl High Negative [facility] RBC Auto (Bld) [#/Vol]Ordere d By: HEALTH ASSESSMENT on 03-31-2025 RBC (Bld) [#/Vol] 4.38 10*6/uL 4.2-5.4 [facility] Screening total cholesterol/ high density lipoprotein (HDL) cholesterol ratioOrdered By: HEALTH ASSESSMENT on 03-31-2025 Cholesterol.total/Chol esterol in HDL [Mass ratio] 4.04 {ratio} [facility] Serum creatinine measurement (mass/volume)Ordered By: HEALTH ASSESSMENT on 03-31-2025 Creatinine [Mass/Vol] 0.69 mg/dL Low 0.70-1.20 [facility] Comment on above: Previous reported re sult: 0.70 mg/dLEdited by: AUTOINS on 03/31/25:1235 AMENDED REPORT 03/31/25 1235 CREAT,SERUM previously reported as: 0.70 mg/dL Serum globulin measurementOr dered By: HEALTH ASSESSMENT on 03-31-2025 Globulin (S) [Mass/Vol] 2.8 g/dL 2.2-4.2 [facility] Comment on above: Previous reported re sult: 3.2 g/dLEdited by: AUTOINS on 03/31/25:1235 AMENDED REPORT 03/31/25 1235 GLOB previously reported as: 3.2 g/dL Serum glucose measurement (m ass/volume)Ordered By: HEALTH ASSESSMENT on 03-31-2025 Glucose [Mass/Vol] 84 mg/dL 70-99 [facility] Comment on above: Previous reported re sult: 92 mg/dLEdited by: AUTOINS on 03/31/25:1235 AMENDED REPORT 03/31/25 1235 GLU previously reported as: 92 mg/dL Serum or plasma alanine petit otransferase (ALT) measurementOrdered By: HEALTH ASSESSMENT on 03-31-2025 ALT [Catalytic activity/Vol] 26 U/L <35 [facility] Comment on above: Previous reported re sult: 27 U/LEdited by: AUTOINS on 03/31/25:1235 AMENDED REPORT 03/31/25 1235 ALT previously reported as: 27 U/L Serum or plasma albumin wally urement (mass/volume)Ordered By: HEALTH ASSESSMENT on 03-31-2025 Albumin [Mass/Vol] 4.1 g/dL 3.5-5.0 [facility] Comment on above: Previous reported re sult: 4.0 g/dLEdited by: JOSE M on 03/31/25:1235 AMENDED REPORT 03/31/25 1235 ALB previously reported as: 4.0 g/dL Serum or plasma albumin/glob ulin mass ratioOrdered By: HEALTH ASSESSMENT on 03-31-2025 Albumin/Globulin [Mass ratio] 1.5 {ratio} 0.9-2.4 [facility] Comment on above: Previous reported re sult: 1.2 RATIOEdited by: JOSE M on 03/31/25:1235 AMENDED REPORT 03/31/25 1235 A/G previously reported as: 1.2 RATIO Serum or plasma alkaline clara sphatase measurementOrdered By: HEALTH ASSESSMENT on 03-31-2025 ALP [Catalytic activity/Vol] 57 U/L 35-104 [facility] Comment on above: Previous reported re sult: 60 U/LEdited by: JOSE M on 03/31/25:1235 AMENDED REPORT 03/31/25 1235 ALK P previously reported as: 60 U/L Serum or plasma calcium wally urement (mass/volume)Ordered By: HEALTH ASSESSMENT on 03-31-2025 Calcium [Mass/Vol] 9.2 mg/dL 7.6-11.0 [facility] Comment on above: Previous reported re sult: 9.1 mg/dLEdited by: JOSE M on 03/31/25:1235 AMENDED REPORT 03/31/25 1235 CA previously reported as: 9.1 mg/dL Serum or plasma cholesterol in HDL measurement (mass/volume)Ordered By: HEALTH ASSESSMENT on 03-31-2025 Cholesterol in HDL [Mass/Vol] 48 mg/dL >40 [facility] Comment on above: National Cholesterol Education Program (NCEP) guidelines:<40 mg/dL: Low HDL-cholesterol (major risk factor for CHD)>= 60 mg/dL: High HDL-cholesterol (negative risk factor for CHD)HDL-cholesterol is affected by a number of factors, e.g. smoking, exercise, hormones, sex and age. Serum or plasma cholesterol measurement (mass/volume)Ordered By: HEALTH ASSESSMENT on 03-31-2025 Cholesterol [Mass/Vol] 195 mg/dL <201 [facility] Comment on above: Cholesterol level, D esirable <200 mg/dLBorderline high cholesterol 200-239 mg/dLHigh cholesterol >=240 mg/dLRecommendations of the NCEP Adult Treatment Panel for the following risk-cutoff thresholds for the [place] population. Serum or plasma urea nitroge n measurement (mass/volume)Ordered By: HEALTH ASSESSMENT on 03-31-2025 Urea nitrogen [Mass/Vol] 13 mg/dL 4-19 [facility] Serum or plasma uric acid me asurement (mass/volume)Ordered By: [facility] ASSESSMENT on 03-31-2025 Urate [Mass/Vol] 3.5 mg/dL 2.6-6.0 [facility] Comment on above: The drugs N-Acetylcy steine and Metamizole may falsely depress this assay. Sodium levelOrdered By: [facility] ASSESSMENT on 03-31-2025 Sodium [Moles/Vol] 138 mmol/L 133-145 [facility] TSH DL <= 0.005 mIU/L QnOrde red By: Rachel Lo on 03-31-2025 TSH Qn 0.699 uIU/mL 0.300-4.20 0 [facility] Thyroid Stim Hormone (TSH)on 03-31-2025 TSH 0.699 uIU/mL Normal 0.300-4.20 0 [facility] Comment on above: Performed By: #### L 501.0585 #### [facility] [address], [address] Total proteinOrdered By: FAZAL [facility] ASSESSMENT on 03-31-2025 Protein [Mass/Vol] 6.9 g/dL 5.9-8.4 [facility] Comment on above: Previous reported re sult: 7.2 g/dLEdited by: AUTOINS on 03/31/25:1235 AMENDED REPORT 03/31/25 1235 T PROT previously reported as: 7.2 g/dL Triglycerides measurementOrd ered By: HEALTH ASSESSMENT on 03-31-2025 Triglyceride [Mass/Vol] 72 mg/dL <199 [facility] Comment on above: The drugs N-Acetylcy steine and Metamizole may falsely depress this assay. Normal range: <150 mg/dLBorderline High: 150-199 mg/dLHigh: 200-499 mg/dLVery High: >500 mg/dL Urinalysis, Mounikaon 03-31 BILIRUBIN URINE Negative Normal Negative [facility] Comment on above: Order Comment: Urine , Random Performed By: #### L 100.0200, L400.0100, L500.2900 #### [facility] [address] [place], [address] Clarity (U) Clear Normal Clear [facility] Comment on above: Order Comment: Urine , Random Performed By: #### L 100.0200, L400.0100, L500.2900 #### [facility] [address] [place], [address] Color (U) Yellow Normal Yellow [facility] Comment on above: Order Comment: Urine , Random Performed By: #### L 100.0200, L400.0100, L500.2900 #### [facility] [address] [place], [address] GLUCOSE, UR Normal Normal Normal [facility] Comment on above: Order Comment: Urine , Random Performed By: #### L 100.0200, L400.0100, L500.2900 #### [facility] [address] [place], [address] KETONE UR Negative Normal Negative [facility] Comment on above: Order Comment: Urine , Random Performed By: #### L 100.0200, L400.0100, L500.2900 #### [facility] [address] [place], [address] LEUK ESTERASE 500 /ul Abnormal Negative [facility] Comment on above: Order Comment: Urine , Random Performed By: #### L 100.0200, L400.0100, L500.2900 #### [facility] [address] [place], [address] Nitrite Ql (U) Negative Normal Negative [facility] Comment on above: Order Comment: Urine , Random Performed By: #### L 100.0200, L400.0100, L500.2900 #### [facility] [address] [place], [address] OCCULT BLOOD-UR Negative Normal Negative [facility] Comment on above: Order Comment: Urine , Random Performed By: #### L 100.0200, L400.0100, L500.2900 #### [facility] [address] [place], [address] pH UR 6.0 Normal 5.0 - 8.0 [facility] Comment on above: Order Comment: Urine , Random Performed By: #### L 100.0200, L400.0100, L500.2900 #### [facility] [address] [place], [address] PROT DIPSTX 15 mg/dl Abnormal Negative [facility] Comment on above: Order Comment: Urine , Random Performed By: #### L 100.0200, L400.0100, L500.2900 #### [facility] [address] [place], [address] SP.GR. DIPSTX 1.015 Normal 1.002-1.03 0 [facility] Comment on above: Order Comment: Urine , Random Performed By: #### L 100.0200, L400.0100, L500.2900 #### [facility] [address] [place], [address] UROBILI Normal Normal Normal [facility] Comment on above: Order Comment: Urine , Random Performed By: #### L 100.0200, L400.0100, L500.2900 #### [facility] [address] [place], [address] Urine clarityOrdered By: FAZAL [facility] ASSESSMENT on 03-31-2025 Clarity (U) Clear Clear [facility] Urine color determinationOrd ered By: HEALTH ASSESSMENT on 03-31-2025 Color (U) Yellow Yellow [facility] Urine glucose detectionOrder ed By: HEALTH ASSESSMENT on 03-31-2025 Glucose Ql (U) Normal mg/dl Normal [facility] Urine leukocyte esterase det ection by dipstickOrdered By: HEALTH ASSESSMENT on 03-31-2025 Leukocyte esterase Test strip Ql (U) 500 /ul High Negative [facility] Urine pHOrdered By: HEALTH A SSESSMENT on 03-31-2025 pH (U) 6.0 [pH] 5.0 - 8.0 [facility] Urine specific gravity measu rementOrdered By: HEALTH ASSESSMENT on 03-31-2025 Specific gravity (U) [Rel density] 1.015 1.002-1.03 0 [facility] Urine urobilinogen measureme ntOrdered By: HEALTH ASSESSMENT on 03-31-2025 Urobilinogen Ql (U) Normal mg/dl Normal [facility] White blood cell (WBC) count Ordered By: HEALTH ASSESSMENT on 03-31-2025 WBC (Bld) [#/Vol] 6.6 10*3/uL 4.4-11.0 [facility] Breast imaging reportOrdered By: Chas Rooney on 10-31-2024 Study report [facility] Imaging Services [address] [place], [place] [address] SCRN MAMM (CAD)W/MYRA BILAT MR#: [id number] Acct: [id number] Name: AFSHAN DON Rep #: [id number] : 1980 F 44 From: Dominick Rooney MD PCP: Dr. Rachel Lo DO Status: RE G CLI Study:SCRN MAMM (CAD)W/MYRA BILAT Date of Exa m: 10/31/24 Exam# [id number] Ordering Dr: Nneka Lo DO EXAM: SCRN MAMM (CAD)W/MYRA BILAT DATE: 10/31/2024 CLINICAL HISTORY: F, Age 44 y/o , SCRN MAMM (CAD)W/MYRA BILAT. Maternal grandmother with history of breast cancer. BREAST CANCER RISK ASSESSMENT: Not assessed. TECHNIQUE: Bilateral screening digital breast tomosynthesis with 2D and 3D images. Computeraided detection. COMPARISON: Prior exam(s) dating back to October 31, 2023.. FINDINGS: Bilateral Breast Mammographic Findings: No significant masses, calcifications or other abnormalities are identified. TISSUE DENSITY: The breast tissue is heterogenously dense, which may obscure small masses. No suspicious masses, areas of developing architectural distortion, or suspicious calcifications. There has been no significant interval change. BI/SCRN MAMM (CAD)W/MYRA BILAT IMPRESSION: Right Breast: BIRADS 1 NEGATIVE. Left Breast: BIRADS 1 NEGATIVE. OVERALL FINAL ASSESSMENT: BIRADS 1 NEGATIVE RECOMMENDATION: ROUTINE ANNUAL FOLLOW-UP Bilateral in 1 Year Normal interval followup mammograms are recommended in 12 months. A letter with findings and recommendations will be mailed to the patient. Reading Location: [place] [address] CC: Dr. Rachel Lo DO ~ Cad Design Engineer: Signed [facility] SCRN MAMM (CAD)W/MYRA BILATo n 10-31-2024 SCRN MAMM (CAD)W/MYRA BILAT [facility] Imaging Services [address] [place] [id number] SCRN MAMM (CAD)W/MYRA BILAT MR#: [id number] Acct: [id number] Name: AFSHAN DON Rep #: [id number] : 1980 F 44 From: Chas mays MD PCP: Dr. Rachel Lo DO Status: REG CLI Study: SCRN MAMM (CAD)W/MYRA BILAT Date of Exam: 10/13 Exam# [id number] Ordering Dr: Rachel Lo DO EXAM: SCRN MAMM (CAD)W/MYRA BILAT DATE: 10/31/2024 CLINICAL HISTORY: F, Age 44 y/o , SCRN MAMM (CAD)W/MYRA BILAT. Maternal grandmother with history of breast cancer. BREAST CANCER RISK ASSESSMENT: Not assessed. TECHNIQUE: Bilateral screening digital breast tomosynthesis with 2D and 3D images. Computer aided detection. COMPARISON: Prior exam(s) dating back to October 31, 2023.. FINDINGS: Bilateral Breast Mammographic Findings: No significant masses, calcifications or other abnormalities are identified. TISSUE DENSITY: The breast tissue is heterogenously dense, which may obscure small masses. No suspicious masses, areas of developing architectural distortion, or suspicious calcifications. There has been no significant interval change. BI/SCRN MAMM (CAD)W/MYRA BILAT IMPRESSION: Right Breast: BIRADS 1 NEGATIVE. Left Breast: BIRADS 1 NEGATIVE. OVERALL FINAL ASSESSMENT: BIRADS 1 NEGATIVE RECOMMENDATION: ROUTINE ANNUAL FOLLOW-UP Bilateral in 1 Year Normal interval followup mammograms are recommended in 12 months. A letter with findings and recommendations will be mailed to the patient. Reading Location: [place] [address] CC: Dr. Rachel Lo, DO Cad Design Engineer: Signed Normal [facility] CBC, Employeeon 05-01-2024 Absolute Lymph 1.74 X10 3/uL Normal 0.83-4.51 [facility] Comment on above: Performed By: #### L 100.0200, L400.0100, L500.2900 #### [facility] [address] [place], [address] Absolute Neut 4.7 X10 3/uL Normal 2.0-7.7 [facility] Comment on above: Performed By: #### L 100.0200, L400.0100, L500.2900 #### [facility] [address] [place], [address] Basophils/100 WBC (Bld) 0.4 % Normal 0-1 [facility] Comment on above: Performed By: #### L 100.0200, L400.0100, L500.2900 #### [facility] [address] [place], [address] Eosinophils/100 WBC (Bld) 3.1 % Normal 0-5 [facility] Comment on above: Performed By: #### L 100.0200, L400.0100, L500.2900 #### [facility] [address] [place], [address] Erythrocyte distribution width (RBC) [Ratio] 11.9 % Normal 11.6-14.6 [facility] Comment on above: Performed By: #### L 100.0200, L400.0100, L500.2900 #### [facility] [address] [place], [address] Hematocrit (Bld) [Volume fraction] 36.3 % Low 37-47 [facility] Comment on above: Performed By: #### L 100.0200, L400.0100, L500.2900 #### [facility] [address] [place], [address] Hemoglobin (Bld) [Mass/Vol] 12.3 g/dL Normal 12.0-15.0 [facility] Comment on above: Performed By: #### L 100.0200, L400.0100, L500.2900 #### [facility] [address] [place], [address] Lymphocytes/100 WBC (Bld) 24.2 % Normal 19-41 [facility] Comment on above: Performed By: #### L 100.0200, L400.0100, L500.2900 #### [facility] [address] [place], [address] MCH (RBC) [Entitic mass] 29.6 pg Normal 27.0-32.0 [facility] Comment on above: Performed By: #### L 100.0200, L400.0100, L500.2900 #### [facility] [address] [place], [address] MCHC (RBC) [Mass/Vol] 33.9 g/dL Normal 32-36 [facility] Comment on above: Performed By: #### L 100.0200, L400.0100, L500.2900 #### [facility] [address] [place], [address] MCV (RBC) [Entitic vol] 87.3 fL Normal 81-99 [facility] Comment on above: Performed By: #### L 100.0200, L400.0100, L500.2900 #### [facility] [address] [place], [address] Monocytes/100 WBC (Bld) 7.0 % Normal 0-10 [facility] Comment on above: Performed By: #### L 100.0200, L400.0100, L500.2900 #### [facility] [address] [place], [address] Neutrophils/100 WBC (Bld) 65.0 % Normal 47-70 [facility] Comment on above: Performed By: #### L 100.0200, L400.0100, L500.2900 #### [facility] [address] [place], [address] NRBC # 0.00 10 3/uL Normal 0-5 [facility] Comment on above: Performed By: #### L 100.0200, L400.0100, L500.2900 #### [facility] [address] [place], [address] Nucleated RBC (Bld) [#/Vol] 0 10*3/uL Normal 0-5 [facility] Comment on above: Performed By: #### L 100.0200, L400.0100, L500.2900 #### [facility] [address] [place], [address] Platelet mean volume (Bld) [Entitic vol] 10.2 fL Normal 6.2-12.0 [facility] Comment on above: Performed By: #### L 100.0200, L400.0100, L500.2900 #### [facility] [address] [place], [address] Platelets (Bld) [#/Vol] 290 10*3/uL Normal 150-450 [facility] Comment on above: Performed By: #### L 100.0200, L400.0100, L500.2900 #### [facility] [address] [place], [address] RBC (Bld) [#/Vol] 4.16 10*6/uL Low 4.2-5.4 [facility] Comment on above: Performed By: #### L 100.0200, L400.0100, L500.2900 #### [facility] [address] [place], [address] RDW SD 38.4 fl Normal 35.1-43.9 [facility] Comment on above: Performed By: #### L 100.0200, L400.0100, L500.2900 #### [facility] [address] [place], [address] WBC (Bld) [#/Vol] 7.2 10*3/uL Normal 4.4-11.0 [facility] Comment on above: Performed By: #### L 100.0200, L400.0100, L500.2900 #### [facility] [address] [place], [address] Employee Profileon 4 Albumin [Mass/Vol] 3.4 g/dL Normal 3.2-5.0 [facility] Comment on above: Performed By: #### L 100.0200, L400.0100, L500.2900 #### [facility] [address] [place], [address] Albumin/Globulin [Mass ratio] 0.9 {ratio} Normal 0.9-2.4 [facility] Comment on above: Performed By: #### L 100.0200, L400.0100, L500.2900 #### [facility] [address] [place], [address] ALK P 63 U/L Normal 45-117 [facility] Comment on above: Performed By: #### L 100.0200, L400.0100, L500.2900 #### [facility] [address] [place], [address] ALT [Catalytic activity/Vol] 31 U/L Normal 13-56 [facility] Comment on above: Performed By: #### L 100.0200, L400.0100, L500.2900 #### [facility] [address] [place], [address] AST [Catalytic activity/Vol] 45 U/L High 15-37 [facility] Comment on above: Performed By: #### L 100.0200, L400.0100, L500.2900 #### [facility] [address] [place], [address] Bilirubin [Mass/Vol] 0.30 mg/dL Normal 0.20-1.00 [facility] Comment on above: Result Comment: For patients on eltrombopag therapy, use of Dimension [place] TBIL is not recommended. Performed By: #### L 100.0200, L400.0100, L500.2900 #### [facility] [address] [place], [address] Bilirubin.direct [Mass/Vol] 0.11 mg/dL Normal 0.00-0.30 [facility] Comment on above: Performed By: #### L 100.0200, L400.0100, L500.2900 #### [facility] [address] [place], [address] BUN/CRE 15.2 RATIO Normal 10-20 [facility] Comment on above: Performed By: #### L 100.0200, L400.0100, L500.2900 #### [facility] [address] [place], [address] CA,Total 9.1 mg/dL Normal 8.5-10.1 [facility] Comment on above: Performed By: #### L 100.0200, L400.0100, L500.2900 #### [facility] [address] [place], [address] Chloride [Moles/Vol] 109 mmol/L High 98-107 [facility] Comment on above: Performed By: #### L 100.0200, L400.0100, L500.2900 #### [facility] [address] [place], [address] CHOL:HDL 3.80 Normal [facility] Comment on above: Performed By: #### L 100.0200, L400.0100, L500.2900 #### [facility] [address] [place], [address] Cholesterol [Mass/Vol] 161 mg/dL Normal 200 [facility] Comment on above: Result Comment: <200 mg/dL Desirable 200-240 mg/dL Borderline >240 mg/dL High Risk Performed By: #### L 100.0200, L400.0100, L500.2900 #### [facility] [address] [place], [address] Cholesterol in HDL [Mass/Vol] 42 mg/dL Normal [facility] Comment on above: Result Comment: The drugs N-Acetylcysteine and Metamizole may falsely depress this assay. Reference Range HDL <40 mg/dL Low HDL Cholesterol HDL >or= 60 mg/dL High HDL Cholesterol Performed By: #### L 100.0200, L400.0100, L500.2900 #### [facility] [address] [place], [address] Cholesterol in LDL [Mass/Vol] 99 mg/dL Normal 0-130 [facility] Comment on above: Performed By: #### L 100.0200, L400.0100, L500.2900 #### [facility] [address] [place], [address] Cholesterol in VLDL [Mass/Vol] 20 mg/dL Normal 5-40 [facility] Comment on above: Performed By: #### L 100.0200, L400.0100, L500.2900 #### [facility] [address] [place], [address] CO2 [Moles/Vol] 23.0 mmol/L Normal 21.0-32.0 [facility] Comment on above: Performed By: #### L 100.0200, L400.0100, L500.2900 #### [facility] [address] [place], [address] Creatinine [Mass/Vol] 0.73 mg/dL Normal 0.55-1.02 [facility] Comment on above: Result Comment: The validity of the calculated GFR GFRAA in patients over 70 years has not been determined. Clinical correlation is essential. Performed By: #### L 100.0200, L400.0100, L500.2900 #### [facility] [address] [place], [address] EST GFR - AA 113 mL/min Normal >60 [facility] Comment on above: Result Comment: Afri can [place] GFR Calc Performed By: #### L 100.0200, L400.0100, L500.2900 #### [facility] [address] [place], [address] GAP 7 Normal 5-15 [facility] Comment on above: Performed By: #### L 100.0200, L400.0100, L500.2900 #### [facility] [address] [place], [address] GFR/1.73 sq M.predicted among non-blacks MDRD (S/P/Bld) [Vol rate/Area] 94 mL/min/{1.73_m2} Normal >60 [facility] Comment on above: Result Comment: Non- GFR Calc Performed By: #### L 100.0200, L400.0100, L500.2900 #### [facility] [address] [place], [address] Globulin (S) [Mass/Vol] 3.6 g/dL Normal 2.2-4.2 [facility] Comment on above: Performed By: #### L 100.0200, L400.0100, L500.2900 #### [facility] [address] [place], [address] Glucose [Mass/Vol] 89 mg/dL Normal 74-106 [facility] Comment on above: Performed By: #### L 100.0200, L400.0100, L500.2900 #### [facility] [address] [place], [address] LDH 173 U/L Normal 84-246 [facility] Comment on above: Performed By: #### L 100.0200, L400.0100, L500.2900 #### [facility] [address] [place], [address] Phosphate [Mass/Vol] 3.6 mg/dL Normal 2.5-4.9 [facility] Comment on above: Performed By: #### L 100.0200, L400.0100, L500.2900 #### [facility] [address] [place], [address] Potassium [Moles/Vol] 3.9 mmol/L Normal 3.5-5.1 [facility] Comment on above: Performed By: #### L 100.0200, L400.0100, L500.2900 #### [facility] [address] [place], [address] Sodium [Moles/Vol] 139 mmol/L Normal 136-145 [facility] Comment on above: Performed By: #### L 100.0200, L400.0100, L500.2900 #### [facility] [address] [place], [address] T PROT 7.0 g/dL Normal 6.4-8.2 [facility] Comment on above: Performed By: #### L 100.0200, L400.0100, L500.2900 #### [facility] [address] [place], [address] Triglyceride [Mass/Vol] 100 mg/dL Normal [facility] Comment on above: Result Comment: The drugs N-Acetylcysteine and Metamizole may falsely depress this assay. Serum Triglycerides Reference Interval Normal <150 mg/dL Borderline high 150 - 199 mg/dL High 200 - 499 mg/dL Very High > or = 500 mg/dL Performed By: #### L 100.0200, L400.0100, L500.2900 #### [facility] [address] [place], [address] Urea nitrogen [Mass/Vol] 11 mg/dL Normal 7-18 [facility] Comment on above: Performed By: #### L 100.0200, L400.0100, L500.2900 #### [facility] [address] [place], [address] URIC 3.8 mg/dL Normal 2.6-6.0 [facility] Comment on above: Result Comment: The drugs N-Acetylcysteine and Metamizole may falsely depress this assay. Performed By: #### L 100.0200, L400.0100, L500.2900 #### [facility] [address] [place], [address] Urinalysis, Employeeon 05-01 BILIRUBIN URINE Negative Normal Negative [facility] Comment on above: Order Comment: CLEAN CATCH Performed By: #### L 100.0200, L400.0100, L500.2900 #### [facility] [address] [place], [address] Clarity (U) Clear Normal Clear [facility] Comment on above: Order Comment: CLEAN CATCH Performed By: #### L 100.0200, L400.0100, L500.2900 #### [facility] [address] [place], [address] Color (U) Yellow Normal Yellow [facility] Comment on above: Order Comment: CLEAN CATCH Performed By: #### L 100.0200, L400.0100, L500.2900 #### [facility] [address] [place], [address] GLUCOSE, UR Normal Normal Normal [facility] Comment on above: Order Comment: CLEAN CATCH Performed By: #### L 100.0200, L400.0100, L500.2900 #### [facility] [address] [place], [address] KETONE UR Negative Normal Negative [facility] Comment on above: Order Comment: CLEAN CATCH Performed By: #### L 100.0200, L400.0100, L500.2900 #### [facility] [address] [place], [address] LEUK ESTERASE Negative Normal Negative [facility] Comment on above: Order Comment: CLEAN CATCH Performed By: #### L 100.0200, L400.0100, L500.2900 #### [facility] [address] [place], [address] Nitrite Ql (U) Negative Normal Negative [facility] Comment on above: Order Comment: CLEAN CATCH Performed By: #### L 100.0200, L400.0100, L500.2900 #### [facility] [address] [place], [address] OCCULT BLOOD-UR Negative Normal Negative [facility] Comment on above: Order Comment: CLEAN CATCH Performed By: #### L 100.0200, L400.0100, L500.2900 #### [facility] [address] [place], [address] pH UR 6.0 Normal 5.0 - 8.0 [facility] Comment on above: Order Comment: CLEAN CATCH Performed By: #### L 100.0200, L400.0100, L500.2900 #### [facility] [address] [place], [address] PROT DIPSTX Negative Normal Negative [facility] Comment on above: Order Comment: CLEAN CATCH Performed By: #### L 100.0200, L400.0100, L500.2900 #### [facility] [address] [place], [address] SP.GR. DIPSTX 1.020 Normal 1.002-1.03 0 [facility] Comment on above: Order Comment: CLEAN CATCH Performed By: #### L 100.0200, L400.0100, L500.2900 #### [facility] [address] [place], [address] UROBILI Normal Normal Normal [facility] Comment on above: Order Comment: CLEAN CATCH Performed By: #### L 100.0200, L400.0100, L500.2900 #### [facility] [address] [place], [address] Absolute lymphocyte counton 05-06-2022 Lymphocytes Auto (Unsp spec) [#/Vol] 1.83 10*3/uL 0.83-4.51 [facility] Work Phone: Absolute reticulocyte counto n 09-23-2022 Reticulocytes (Bld) [#/Vol] 0.00 10*3/uL 0-5 [facility] Work Phone: Basophil percentageon 2021 Basophil percentage 3.6 mg/dL 2.5-4.9 [facility] Work Phone: Bilirubin [Mass/Vol] 0.40 mg/dL 0.20-1.00 [facility] Work Phone: Comment on above: For patients on eltr ombopag therapy, use of Dimension [place] TBIL is not recommended. Chloride [Moles/Vol] 107 mmol/L 98-107 [facility] Work Phone: Cholesterol [Mass/Vol] 190 mg/dL <200 [facility] Work Phone: Comment on above: <200 mg/dL Desirable 200-240 mg/dL Borderline >240 mg/dL High Risk Glucose [Mass/Vol] 96 mg/dL 74-106 [facility] Work Phone: Neutrophils (Bld) [#/Vol] 4.8 10*3/uL 2.0-7.7 [facility] Work Phone: Potassium [Moles/Vol] 4.2 mmol/L 3.5-5.1 [facility] Work Phone: Protein [Mass/Vol] 7.4 g/dL 6.4-8.2 [facility] Work Phone: Sodium [Moles/Vol] 138 mmol/L 136-145 [facility] Work Phone: Triglyceride [Mass/Vol] 106 mg/dL <199 [facility] Work Phone: Comment on above: The drugs N-Acetylcy steine and Metamizole may falsely depress this assay.Serum Triglycerides Reference Interval Normal <150 mg/dL Borderline high 150 - 199 mg/dL High 200 - 499 mg/dL Very High > or = 500 mg/dL WBC (Bld) [#/Vol] 7.5 10*3/uL 4.4-11.0 [facility] Work Phone: Bilirubin Test strip Ql (U)o n 05-06-2022 Bilirubin Ql (U) Negative Negative [facility] Work Phone: Blood erythrocytes count (nu mber/volume)on 05-06-2022 RBC (Bld) [#/Vol] 4.46 10*6/uL 4.2-5.4 [facility] Work Phone: Blood hemoglobin measurement (mass/volume)on 05-06-2022 Hemoglobin (Bld) [Mass/Vol] 13.0 g/dL 12.0-15.0 [facility] Work Phone: Blood platelet mean volumeon 05-06-2022 Platelet mean volume (Bld) [Entitic vol] 10.9 fL 6.2-12.0 [facility] Work Phone: Determination of erythrocyte mean corpuscular volume (MCV)on 05-06-2022 MCV (RBC) [Entitic vol] 89.0 fL 81-99 [facility] Work Phone: Direct bilirubinon Bilirubin.direct [Mass/Vol] 0.05 mg/dL 0.00-0.30 [facility] Work Phone: Hematocrit Auto (Bld) [Volum e fraction]on 05-06-2022 Hematocrit (Bld) [Volume fraction] 39.7 % 37-47 [facility] Work Phone: Ketones Test strip Ql (U)on 05-06-2022 Ketones Ql (U) Negative Negative [facility] Work Phone: Laboratory - Chemistry and C hemistry - challengeon 05-06-2022 ALP [Catalytic activity/Vol] 76 U/L 45-117 [facility] Work Phone: ALT [Catalytic activity/Vol] 48 U/L 13-56 [facility] Work Phone: Cholesterol.total/Chol esterol in HDL [Mass ratio] 4.50 {ratio} [facility] Work Phone: CO2 [Moles/Vol] 23.0 mmol/L 21.0-32.0 [facility] Work Phone: Globulin (S) [Mass/Vol] 4.0 g/dL 2.2-4.2 [facility] Work Phone: Urea nitrogen/Creatinine [Mass ratio] 17.4 mg/mg 10-20 [facility] Work Phone: Laboratory - Hematology and Cell countson 05-06-2022 Erythrocyte distribution width (RBC) [Entitic vol] 38.5 fL 35.1-43.9 [facility] Work Phone: Erythrocyte distribution width (RBC) [Ratio] 11.9 % 11.6-14.6 [facility] Work Phone: MCH (RBC) [Entitic mass] 29.1 pg 27.0-32.0 [facility] Work Phone: Nucleated RBC/100 WBC (Bld) [Ratio] 0 % 0-5 [facility] Work Phone: MCHC Auto (RBC) [Mass/Vol]on 05-06-2022 MCHC (RBC) [Mass/Vol] 32.7 g/dL 32-36 [facility] Work Phone: Nitrite Test strip Ql (U)on 05-06-2022 Nitrite Ql (U) Negative Negative [facility] Work Phone: No Panel Informationon 05-06 Thyroid Stimulating Hormone (TSH) 1.08 uIU/mL 0.358-3.74 [facility] Work Phone: Estimated GFR (MDRD) Amer 111 mL/min >60 [facility] Work Phone: Comment on above: GFR Calc Estimated GFR (MDRD) Non-Af Amer 92 mL/min >60 [facility] Work Phone: Comment on above: Non- GFR Calc Platelets bldon 05-06-2022 Platelets (Bld) [#/Vol] 302 10*3/uL 150-450 [facility] Work Phone: Protein Test strip Ql (U)on 05-06-2022 Protein Ql (U) Negative Negative [facility] Work Phone: Segmented neutrophils/100 WB C Auto (Bld)on 05-06-2022 Segmented neutrophils/100 WBC (Bld) 64.6 % 47-70 [facility] Work Phone: Serum or plasma albumin wally urement (mass/volume)on 05-06-2022 Albumin [Mass/Vol] 3.4 g/dL 3.2-5.0 [facility] Work Phone: Serum or plasma albumin/glob ulin mass ratioon 05-06-2022 Albumin/Globulin [Mass ratio] 0.8 {ratio} 0.9-2.4 [facility] Work Phone: Serum or plasma calcium wally urement (mass/volume)on 05-06-2022 Calcium [Mass/Vol] 9.1 mg/dL 8.5-10.1 [facility] Work Phone: Serum or plasma cholesterol in HDL measurement (mass/volume)on 05-06-2022 Cholesterol in HDL [Mass/Vol] 42 mg/dL >40 [facility] Work Phone: Comment on above: The drugs N-Acetylcy steine and Metamizole may falsely depress this assay. Reference Range HDL <40 mg/dL Low HDL Cholesterol HDL >or= 60 mg/dL High HDL Cholesterol Serum or plasma cholesterol in VLDL measurement (mass/volume)on 05-06-2022 Cholesterol in VLDL [Mass/Vol] 21 mg/dL 5-40 [facility] Work Phone: Serum or plasma creatinine m easurement (mass/volume)on 05-06-2022 Creatinine [Mass/Vol] 0.75 mg/dL 0.55-1.02 [facility] Work Phone: Comment on above: The validity of the calculated GFR & GFRAA in patients over 70 years has not been determined. Clinical correlation is essential. Serum or plasma low density lipoprotein (LDL) cholesterol measurement (mass/volume)on 05-06-2022 Cholesterol in LDL [Mass/Vol] 127 mg/dL 0-130 [facility] Work Phone: Serum or plasma urea nitroge n measurement (mass/volume)on 05-06-2022 Urea nitrogen [Mass/Vol] 13 mg/dL 7-18 [facility] Work Phone: Serum or plasma uric acid me asurement (mass/volume)on 05-06-2022 Urate [Mass/Vol] 4.2 mg/dL 2.6-6.0 [facility] Work Phone: Comment on above: The drugs N-Acetylcy steine and Metamizole may falsely depress this assay. Thin prep Papanicolaou smear with manual screeningon 05-06-2022 Thin prep Papanicolaou smear with manual screening 54 U/L 15-37 [facility] Work Phone: Thin prep Papanicolaou smear with manual screening 8 5-15 [facility] Work Phone: Thin prep Papanicolaou smear with manual screening 217 U/L 84-246 [facility] Work Phone: Urine blood detectionon 04-15 RBC Ql (U) Negative Negative [facility] Work Phone: Urine clarityon 05-06-2022 Clarity (U) Clear Clear [facility] Work Phone: Urine color determinationon 05-06-2022 Color (U) Yellow Yellow [facility] Work Phone: Urine glucose detectionon Glucose Ql (U) Normal mg/dl Normal [facility] Work Phone: Urine leukocyte esterase det ection by dipstickon 05-06-2022 Leukocyte esterase Test strip Ql (U) 25 /ul Negative [facility] Work Phone: Urine pHon 05-06-2022 pH (U) 6.0 [pH] 5.0 - 8.0 [facility] Work Phone: Urine specific gravity measu rementon 05-06-2022 Specific gravity (U) [Rel density] 1.015 1.002-1.03 0 [facility] Work Phone: Urobilinogen Auto test strip Ql (U)on 05-06-2022 Urobilinogen Ql (U) Normal mg/dl Normal [facility] Work Phone: Provider Note - ED v2on 04-14 Provider Note - ED v2 Provider Note - ED v2: Chart Review: ED NOTES ED NOTES: Came in with complaints of left lateral wrist pain. Patient says she was trying to wrangle a steer and got it caught up in the harness she not sure if it pulled or twisted but ever since she has had pain in the right lateral wrist. Patient denies any other signs symptoms are pain. HISTORY OF PRESENTING ILLNESS AFSHAN is a 40 year old Female and was seen by me at 27-Apr-2021 15:56. The historian is the patient. Triage Information: Most recent Vital Sign Value Date PAST MEDICAL HISTORY ATTESTATION: I have reviewed and confirmed nurse's/medic's notes for patient's medications, allergies, and medical, surgical, family and social history PSYCHOSOCIAL SCREENING: NO: concerns for safety at home, feelings of depression, feels like hurting others and feels like hurting self ALLERGIES/INTOLERANCES: No Known Allergies HEALTH HISTORY: No documented data. OUTPATIENT MEDICATIONS: Home Medications Review Status for Reconciliation: Complete Med Status: Patient Currently Takes Medications Drug Name: cyclobenzaprine 5 mg oral tablet Instructions: 1 tab(s) orally every 8 hours SIGNIFICANT EVENTS: No documented data. SALES PROGRAM MANAGER: Is : no Is : no REVIEW OF SYSTEMS MUSCULOSKELETAL: POSITIVE for: pain All other systems reviewed and are negative RESULTS/VITAL SIGNS RESULTS: Radiology Results: STUDY: Wrist Radiographs; 04/27/2021 4:11PM INDICATION: Pain to outer left wrist post twisting injury. COMPARISON: None available. ACCESSION NUMBER(S): [id number] ORDERING CLINICIAN: KURTIS RENO CNP TECHNIQUE: Three view(s) of the left wrist. FINDINGS: No discrete fracture. No focal soft tissue abnormality. No abnormal radiopaque foreign body. Impression: No acute bony abnormality demonstrated by this technique. Should occult bony injury be a consideration, bone scan or MRI may be helpful for further evaluation. Signed by Miguel Davidson D.O. VITAL SIGNS: T PRBP SpO2O2(LPM) %FiO2 Method 27-Apr-2021 15:49:[id number] PHYSICAL EXAM CONSTITUTIONAL: Well appearing, well nourished, awake, alert, oriented to person, place, time/situation and in no apparent distress. HENMT: Airway patent, EYES: pupils are accommodating CARDIOVASCULAR: Normal rate, regular rhythm. Heart sounds S1, S2. No murmurs, rubs or gallops. PMI non-displaced. RESPIRATORY: Breath sounds clear and equal bilaterally. GASTROINTESTINAL: Abdomen soft, non-distended, no rebound, no guarding. Bowel sounds normal in all 4 quadrants. GENITOURINARY: No discharge, no lesions. MUSCULOSKELETAL: Spine appears normal, range of motion is not limited, tenderness over left outer lateral wrist when palpated. NEUROLOGICAL: Alert and oriented, no focal deficits, no motor or sensory deficits. SKIN: Skin normal color for race, warm, dry and intact. No evidence of trauma. PSYCHIATRIC: Alert and oriented to person, place, time/situation. normal mood and affect. No apparent risk to self or others. HEME/LYMPH: No cervical adenopathy. CLINICAL IMPRESSION Diagnosis/Annotation: ED Dx Name:Wrist pain Code:M25.539 Disposition: discharged Type: home ATTESTATION Comments/Additional Findings: Patient's x-ray came back no acute changes. Patient was called and updated. Patient was placed in a brace for comfort patient was also given a low-dose muscle relaxer instructed that medication will make her extremely drowsy not to drive or operate heavy machinery on it patient was okay with this patient will follow-up in 5 to 7 days if signs and symptoms seem to be getting worse not better. CRITICAL CARE TIME Is this a critically ill patient: no Electronic Signatures: Kurtis Reno (GEOSCIENCES PROFESSOR-BAND SPLITTER) (Signed 27-Apr-2021 17:07) Authored: ED Notes, HPI, PMH, ROS, PE, Results/Vital Signs, Clinical Impression, Attestation, Chart Review, Scores Last Updated: 27-Apr-2021 17:07 by Kurtis Reno (GEOSCIENCES PROFESSOR-BAND SPLITTER) [facility] WRIST COMPLT MIN 3 VIEWSon 0 04-27-2021 WRIST COMPLT MIN 3 VIEWS STUDY: Wrist Radiographs; 04/27/2021 4:11PM INDICATION: Pain to outer left wrist post twisting injury. COMPARISON: None available. ACCESSION NUMBER(S): [id number] ORDERING CLINICIAN: KURTIS RENO CNP TECHNIQUE: Three view(s) of the left wrist. FINDINGS: No discrete fracture. No focal soft tissue abnormality. No abnormal radiopaque foreign body. Impression: No acute bony abnormality demonstrated by this technique. Should occult bony injury be a consideration, bone scan or MRI may be helpful for further evaluation. Signed by Miguel Davidson D.O. Electronically signed by: MIGUEL DAVIDSON DO [facility] Sputum CultureOrdered By: Sy stem Assistant Brand Manager on 07-17-2018 Bacteria identified Cx Nom (Sput) Final report Normal [facility] Work Phone: Bacteria identified Cx Nom (Sput) RRF Normal [facility] Work Phone: Comment on above: Routine respiratory jeny Sputum Culture ([id number])Ordere d By: Inspector Fibrous Wallboard on 07-17-2018 Epithelial cells.squamous LM Ql (Sput) Few Normal [facility] Work Phone: Comment on above: PATIENT NOT FASTINGP ERFORMED BY: CB LabSupersolidrp [id number] [facility] [id number] Information: SRC:SP Microscopic observation Gram stain Nom (Sput) PCF Normal [facility] Work Phone: Comment on above: Few gram positive co cciRare gram negative rods. PATIENT NOT FASTINGP ERFORMED BY: CB [facility] [id number] [facility] [id number] Information: SRC:SP Microscopic observation Gram stain Nom (Sput) GSACC Normal [facility] Work Phone: Comment on above: This specimen is of good quality and is acceptable for routinebacterial culture. PATIENT NOT FASTINGP ERFORMED BY: CB [facility] [id number] [facility] [id number] Information: SRC:SP WBC LM Ql (Sput) None seen Normal Comprehe nsive [facility] Work Phone: Comment on above: PATIENT NOT FASTINGP ERFORMED BY: CB [facility] [id number] [facility] [id number] Information: SRC:MARY PAP I-G w/rfx hrHPVOelenita Tejada y: Inspector Fibrous Wallboard on 04-12-2018 PAP I-G w/rfx hrHPV Comment Normal [facility] Work Phone: Comment on above: Teena babb, Event Producer (ASCP) Satisfactory for pipo luation. No endocervical component is identified. The Pap smear is a s creening test designed to aid in thedetection of premalignant and malignant conditions of theuterine cervix. It is not a diagnostic procedure andshould not be used as the sole means of detecting cervicalcancer. Both false-positive and false-negative reports dooccur. NEGATIVE FOR INTRAEP ITHELIAL LESION AND MALIGNANCY. The HPV DNA reflex c riteria were not met with this specimenresult therefore, no HPV testing was performed.Performed at: [address] [id number] Director: Starr Hinton MD, Phone: [phone] This liquid based Th inPrep(R) pap test was screened withthe use of an image guided system. PAP I-G w/rfx hrHPV . Normal [facility] Internal Medicine Work Phone: CBC, EmployeeOrdered By: Mando tem Assistant Brand Manager on 04-09-2018 Basophils/100 WBC Auto (Bld) 0.2 % Normal 0-1 [facility] Work Phone: Eosinophils/100 WBC Auto (Bld) 1.8 % Normal 0-5 [facility] Work Phone: Erythrocyte distribution width Auto Ratio (RBC) 12.4 % Normal 11.6-14.6 [facility] Work Phone: Hematocrit Auto Volume Fraction (Bld) 40.6 % Normal 37-47 [facility] Work Phone: Hemoglobin mass conc (Bld) 13.6 g/dL Normal 12.0-15.0 [facility] Work Phone: Lymphocytes/100 WBC Auto (Bld) 23.4 % Normal 19-41 [facility] Work Phone: MCH Auto Entitic mass (RBC) 28.9 pg Normal 27.0-32.0 [facility] Work Phone: MCHC Auto mass conc (RBC) 33.5 {g/gl} Normal 32-36 [facility] Work Phone: MCV Auto Entitic volume (RBC) 86.4 fL Normal 81-99 [facility] Work Phone: Monocytes/100 WBC Auto (Bld) 7.0 % Normal 0-10 [facility] Work Phone: Neutrophils/100 WBC Auto (Bld) 67.4 % Normal 47-70 [facility] Work Phone: Platelet mean volume Auto Entitic volume (Bld) 10.8 fL Normal 6.2-12.0 [facility] Work Phone: Platelets Auto #/vol (Bld) 316 10*3/uL Normal 150-450 [facility] Work Phone: RBC Auto #/vol (Bld) 4.70 {M/mm3} Normal 4.2-5.4 [facility] Work Phone: WBC Auto #/vol (Bld) 8.8 10*3/uL Normal 4.4-11.0 Com prehensive [facility] Work Phone: CBC, Employee 38.5 fL Normal 35.1-43.9 Comprehensi ve Internal Medicine Work Phone: CBC, Employee 2.07 {X10_3/ul} Normal 0.83-4.51 Compre hensive [facility] Work Phone: CBC, Employee 5.9 {X10_3/uL} Normal 2.0-7.7 Compreh ens[facility] Work Phone: Employee ProfileOrdered By: Inspector Fibrous Wallboard on 04-09-2018 Albumin mass conc 3.6 g/dL Normal 3.2-5.0 Compreh ensive [facility] Work Phone: Albumin/Globulin mass ratio 0.9 {RATIO} Normal 0.9-2.4 [facility] Work Phone: ALT enzyme act/vol 30 U/L Normal 13-56 [facility] Internal Medicine Work Phone: AST enzyme act/vol 42 U/L Abnormal 15-37 [facility] Internal [facility] Work Phone: Bilirubin mass conc 0.40 mg/dL Normal 0.20-1.00 [facility] Internal Medicine Work Phone: Bilirubin.direct mass conc 0.08 mg/dL Normal 0.00-0.30 [facility] Internal Medicine Work Phone: Calcium mass conc 9.0 mg/dL Normal 8.5-10.1 Compreh [facility] Internal Medicine Work Phone: Chloride molar conc 105 mmol/L Normal 98-107 [facility] Internal Medicine Work Phone: Cholesterol in HDL mass conc 46 mg/dL Normal [facility] Internal Medicine Work Phone: Comment on above: The drugs N-Acetylcy steine and Metamizole may falselydepress this assay. Reference Range HDL <40 mg/dL Low HDL Cholesterol HDL >or= 60 mg/dL High HDL Cholesterol Cholesterol in LDL mass conc 131 mg/dL Abnormal 0-130 [facility] Internal Medicine Work Phone: Cholesterol mass conc 202 mg/dL Abnormal [facility] Internal Medicine Work Phone: Comment on above: <200 mg/dL Desirable 200-240 mg/dL Borderline >240 mg/dL High Risk CO2 molar conc 25.0 mmol/L Normal 21.0-32.0 [facility] Work Phone: Creatinine mass conc 0.74 mg/dL Normal 0.55-1.02 [facility] Internal Medicine Work Phone: Comment on above: The validity of the calculated GFR AND GFRAA in patients over70 years has not been determined. Clinical correlation isessential. GFR/1.73 sq M predicted among non-blacks MDRD vol rate/area (S/P/Bld) 94 mL/min/{1.73_m2} Normal Comprehe [facility] Work Phone: Comment on above: Non- GFR Calc Glucose mass conc 87 mg/dL Normal 74-106 Compreh ensive [facility] Work Phone: Comment on above: Please note revised GLUCOSE reference range [id number]/02/2018. Potassium molar conc 4.2 mmol/L Normal 3.5-5.1 Comp rehensive [facility] Work Phone: Protein mass conc 7.7 g/dL Normal 6.4-8.2 Compreh ensive [facility] Work Phone: Sodium molar conc 141 mmol/L Normal 136-145 Compre[facility] ens[facility] Work Phone: Triglyceride mass conc 126 mg/dL Normal [facility] Work Phone: Comment on above: The drugs N-Acetylcy steine and Metamizole may falselydepress this assay.Serum Triglycerides Reference Interval Normal <150 mg/dL Borderline high 150 - 199 mg/dL High 200 - 499 mg/dL Very High > or = 500 mg/dL Urea nitrogen mass conc 14 mg/dL Normal 7-18 [facility] Work Phone: Employee Profile 114 mL/min Normal Comprehe nsive [facility] Work Phone: Comment on above: GFR Calc Employee Profile 18.8 {RATIO} Normal 10-20 Compre hensive [facility] Work Phone: Employee Profile 3.4 mg/dL Normal 2.5-4.9 Comprehe nsive [facility] Work Phone: Employee Profile 3.8 mg/dL Normal 2.6-6.0 Comprehe nsive [facility] Work Phone: Comment on above: The drugs N-Acetylcy steine and Metamizole may falselydepress this assay. Employee Profile 4.1 g/dL Normal 2.2-4.2 Comprehe nsive [facility] Work Phone: Employee Profile 69 U/L Normal 45-117 Comprehe nsive [facility] Work Phone: Employee Profile 11 1 Normal 5-15 Comprehe nsive [facility] Work Phone: Employee Profile 4.40 1 Normal Comprehe nsive [facility] Work Phone: Employee Profile 25 mg/dL Normal 5-40 Comprehe nsive [facility] Work Phone: Employee Profile 191 U/L Normal 84-246 [facility] Work Phone: Nicotine Urine Drug ScreenOr dered By: Inspector Fibrous Wallboard on 04-09-2018 Nicotine Urine Drug Screen Normal [facility] Work Phone: Comment on above: CONFIRMATORY TESTING FOR ALL POSITIVE URINE DRUG SCREENRESULTS WILL ONLY BE SENT OUT UPON PHYSICIAN ORDER.The results of Urine Drug Screen methods provide onlypreliminary analytical test results. A more specificalternate chemical method must be used in order to obtain aconfirmed analytical result. Gas chromatography/massspectrometery (GC/MS) is the preferred confirmatory method.Clinical consideration and professional judgement should beapplied to any drug of abuse test result, particularly whenpreliminary positive results are used. Urinalysis, EmployeeOrdered By: Inspector Fibrous Wallboard on 04-09-2018 Urinalysis, Employee Normal Normal Comp rehensive [facility] Work Phone: Urinalysis, Employee Negative Normal Comp rehensive [facility] Work Phone: Comment on above: Cotinine is the firs t-stage metabolite of Nicotine. Urinalysis, Employee 100 /ul Abnormal Comp rehensive [facility] Work Phone: Urinalysis, Employee 1.010 1 Normal 1.002-1 .03 0 [facility] Work Phone: Urinalysis, Employee Clear Normal Comp rehensive [facility] Work Phone: Urinalysis, Employee 7.0 1 Normal 5.0 - 8.0 Comp rehensive [facility] Work Phone: Urinalysis, Employee Yellow Normal Comp rehensive [facility] Work Phone: CBC W/Diff, AutomatedOrdered By: Inspector Fibrous Wallboard on 12-26-2017 Basophils/100 WBC Auto (Bld) 0.1 % Normal 0-1 [facility] Work Phone: Eosinophils/100 WBC Auto (Bld) 1.4 % Normal 0-5 [facility] Work Phone: Erythrocyte distribution width Auto Ratio (RBC) 12.5 % Normal 11.6-14.6 [facility] Work Phone: Hematocrit Auto Volume Fraction (Bld) 36.4 % Abnormal 37-47 [facility] Work Phone: Hemoglobin mass conc (Bld) 12.1 g/dL Normal 12.0-15.0 [facility] Work Phone: Lymphocytes/100 WBC Auto (Bld) 29.4 % Normal 19-41 [facility] Work Phone: MCH Auto Entitic mass (RBC) 29.5 pg Normal 27.0-32.0 [facility] Internal Medicine Work Phone: MCHC Auto mass conc (RBC) 33.2 {g/gl} Normal 32-36 [facility] Internal [facility] Work Phone: MCV Auto Entitic volume (RBC) 88.8 fL Normal 81-99 [facility] Work Phone: Monocytes/100 WBC Auto (Bld) 7.4 % Normal 0-10 [facility] Medicine Work Phone: Neutrophils/100 WBC Auto (Bld) 61.6 % Normal 47-70 [facility] Internal Medicine Work Phone: Platelet mean volume Auto Entitic volume (Bld) 10.5 fL Normal 6.2-12.0 [facility] Internal Medicine Work Phone: Platelets Auto #/vol (Bld) 295 10*3/uL Normal 150-450 [facility] Work Phone: RBC Auto #/vol (Bld) 4.10 {M/mm3} Abnormal 4.2-5.4 [facility] Work Phone: WBC Auto #/vol (Bld) 7.2 10*3/uL Normal 4.4-11.0 Com prehensive [facility] Work Phone: CBC W/Diff, Automated 39.1 fL Normal 35.1-43.9 Com pre[facility]ive [facility] Work Phone: CBC W/Diff, Automated 4.4 {X10_3/uL} Normal 2.0-7.7 [facility] Internal Medicine Work Phone: CBC W/Diff, Automated 2.11 {X10_3/ul} Normal 0.83-4.51 [facility] Internal Medicine Work Phone: CBC W/Diff, Automated 0.100 % Normal 0.0-0.9 [facility] Internal Medicine Work Phone: Comment on above: IG% - Immature Granu locytes (promyelocytes, myelocytes andmetamyelocytes) > 1% indicates that a LEFT SHIFT is Present. Liver ProfileOrdered By: Neptune.ios tem Assistant Brand Manager on 12-26-2017 Albumin mass conc 3.5 g/dL Normal 3.2-5.0 [facility] Internal Medicine Work Phone: ALP enzyme act/vol 64 U/L Normal 45-117 [facility] Internal Medicine Work Phone: ALT enzyme act/vol 31 U/L Normal 13-56 [facility] Internal Medicine Work Phone: AST enzyme act/vol 47 U/L Abnormal 15-37 [facility] Internal Medicine Work Phone: Bilirubin mass conc 0.20 mg/dL Normal 0.20-1.00 [facility] Internal Medicine Work Phone: Bilirubin.direct mass conc mg/dL Normal 0.00-0.30 [facility] Internal Medicine Work Phone: Globulin Calculated mass conc (S) 3.8 g/dL Normal 2.2-4.2 [facility] Internal Medicine Work Phone: Protein mass conc 7.3 g/dL Normal 6.4-8.2 [facility] Internal Medicine Work Phone: CBC W/Diff, AutomatedOrdered By: Inspector Fibrous Wallboard on 08-10-2017 Basophils/100 WBC Auto (Bld) 0.2 % Normal 0-1 [facility] Internal [facility] Work Phone: Eosinophils/100 WBC Auto (Bld) 1.2 % Normal 0-5 [facility] Work Phone: Erythrocyte distribution width Auto Ratio (RBC) 12.5 % Normal 11.6-14.6 [facility] Work Phone: Hematocrit Auto Volume Fraction (Bld) 41.8 % Normal 37-47 [facility] Work Phone: Hemoglobin mass conc (Bld) 13.7 g/dL Normal 12.0-15.0 [facility] Internal [facility] Work Phone: Lymphocytes/100 WBC Auto (Bld) 26.8 % Normal 19-41 [facility] Internal Medicine Work Phone: MCH Auto Entitic mass (RBC) 29.1 pg Normal 27.0-32.0 [facility] Internal [facility] Work Phone: MCHC Auto mass conc (RBC) 32.8 {g/gl} Normal 32-36 [facility] Internal [facility] Work Phone: MCV Auto Entitic volume (RBC) 88.9 fL Normal 81-99 [facility] Internal [facility] Work Phone: Monocytes/100 WBC Auto (Bld) 7.8 % Normal 0-10 [facility] Work Phone: Neutrophils/100 WBC Auto (Bld) 63.9 % Normal 47-70 [facility] Internal Medicine Work Phone: Platelet mean volume Auto Entitic volume (Bld) 10.6 fL Normal 6.2-12.0 [facility] Internal Medicine Work Phone: Platelets Auto #/vol (Bld) 286 10*3/uL Normal 150-450 [facility] Work Phone: RBC Auto #/vol (Bld) 4.70 {M/mm3} Normal 4.2-5.4 [facility] Work Phone: WBC Auto #/vol (Bld) 8.2 10*3/uL Normal 4.4-11.0 [facility] prehensive Internal Medicine Work Phone: CBC W/Diff, Automated 40.3 fL Normal 35.1-43.9 [facility] prehensive Internal Medicine Work Phone: CBC W/Diff, Automated 2.20 {X10_3/ul} Normal 0.83-4.51 [facility] Internal Medicine Work Phone: CBC W/Diff, Automated 0.100 % Normal 0.0-0.9 [facility] Internal Medicine Work Phone: Comment on above: IG% - Immature Granu locytes (promyelocytes, myelocytes andmetamyelocytes) > 1% indicates that a LEFT SHIFT is Present. CBC W/Diff, Automated 5.2 {X10_3/uL} Normal 2.0-7.7 [facility] Internal Medicine Work Phone: Liver ProfileOrdered By: Sys tem Assistant Brand Manager on 08-10-2017 Albumin mass conc 3.7 g/dL Normal 3.4-5.0 [facility] Internal Medicine Work Phone: Comment on above: Please note revised Albumin AND Globulin reference rangeeffective 2017. ALP enzyme act/vol 77 U/L Normal 45-117 [facility] Internal [facility] Work Phone: ALT enzyme act/vol 40 U/L Normal 12-78 [facility] Internal [facility] Work Phone: AST enzyme act/vol 52 U/L Abnormal 15-37 [facility] Internal [facility] Work Phone: Bilirubin mass conc 0.30 mg/dL Normal 0.20-1.00 [facility] Internal Medicine Work Phone: Bilirubin.direct mass conc 0.08 mg/dL Normal 0.00-0.30 [facility] Internal Medicine Work Phone: Globulin Calculated mass conc (S) 4.1 g/dL Normal 2.2-4.2 [facility] Internal [facility] Work Phone: Protein mass conc 7.8 g/dL Normal 6.4-8.2 [facility] Internal Medicine Work Phone: CBC W/Diff, AutomatedOrdered By: Inspector Fibrous Wallboard on 06-02-2017 Basophils/100 WBC Auto (Bld) 0.1 % Normal 0-1 [facility] Internal [facility] Work Phone: Eosinophils/100 WBC Auto (Bld) 0.7 % Normal 0-5 [facility] Work Phone: Erythrocyte distribution width Auto Ratio (RBC) 12.5 % Normal 11.6-14.6 [facility] Internal Medicine Work Phone: Hematocrit Auto Volume Fraction (Bld) 39.9 % Normal 37-47 [facility] Internal Medicine Work Phone: Hemoglobin mass conc (Bld) 13.5 g/dL Normal 12.0-15.0 [facility] Internal [facility] Work Phone: Lymphocytes/100 WBC Auto (Bld) 25.7 % Normal 19-41 [facility] Work Phone: MCH Auto Entitic mass (RBC) 29.7 pg Normal 27.0-32.0 [facility] Internal [facility] Work Phone: MCHC Auto mass conc (RBC) 33.8 {g/gl} Normal 32-36 [facility] Internal [facility] Work Phone: MCV Auto Entitic volume (RBC) 87.9 fL Normal 81-99 [facility] Internal [facility] Work Phone: Monocytes/100 WBC Auto (Bld) 8.7 % Normal 0-10 [facility] Work Phone: Neutrophils/100 WBC Auto (Bld) 64.6 % Normal 47-70 [facility] Internal [facility] Work Phone: Platelet mean volume Auto Entitic volume (Bld) 10.2 fL Normal 6.2-12.0 [facility] Internal [facility] Work Phone: Platelets Auto #/vol (Bld) 256 10*3/uL Normal 150-450 [facility] Work Phone: RBC Auto #/vol (Bld) 4.54 {M/mm3} Normal 4.2-5.4 [facility] Work Phone: WBC Auto #/vol (Bld) 8.0 10*3/uL Normal 4.4-11.0 [facility] prehensive Internal Medicine Work Phone: CBC W/Diff, Automated 5.2 {X10_3/uL} Normal 2.0-7.7 [facility] Internal Medicine Work Phone: CBC W/Diff, Automated 39.2 fL Normal 35.1-43.9 [facility] prehensive Internal Medicine Work Phone: CBC W/Diff, Automated 2.06 {X10_3/ul} Normal 0.83-4.51 [facility] Internal Medicine Work Phone: CBC W/Diff, Automated 0.200 % Normal 0.0-0.9 [facility] Internal Medicine Work Phone: Comment on above: IG% - Immature Granu locytes (promyelocytes, myelocytes andmetamyelocytes) > 1% indicates that a LEFT SHIFT is Present. Liver ProfileOrdered By: Neptune.ios tem Assistant Brand Manager on 06-02-2017 Albumin mass conc 3.7 g/dL Normal 3.4-5.0 [facility] Internal Medicine Work Phone: Comment on above: Please note revised Albumin AND Globulin reference rangeeffective 2017. ALP enzyme act/vol 72 U/L Normal 45-117 [facility] Internal [facility] Work Phone: ALT enzyme act/vol 43 U/L Normal 12-78 [facility] Internal [facility] Work Phone: AST enzyme act/vol 42 U/L Abnormal 15-37 [facility] Internal Medicine Work Phone: Bilirubin mass conc 0.30 mg/dL Normal 0.20-1.00 [facility] Internal [facility] Work Phone: Bilirubin.direct mass conc 0.13 mg/dL Normal 0.00-0.30 [facility] Internal [facility] Work Phone: Globulin Calculated mass conc (S) 3.8 g/dL Normal 2.2-4.2 [facility] Work Phone: Protein mass conc 7.5 g/dL Normal 6.4-8.2 [facility] Internal Medicine Work Phone: CBC, EmployeeOrdered By: Neptune.ios tem Assistant Brand Manager on 04-18-2017 Basophils/100 WBC Auto (Bld) 0.2 % Normal 0-1 [facility] Work Phone: Eosinophils/100 WBC Auto (Bld) 1.3 % Normal 0-5 [facility] Work Phone: Erythrocyte distribution width Auto Ratio (RBC) 12.0 % Normal 11.6-14.6 [facility] Work Phone: Hematocrit Auto Volume Fraction (Bld) 38.7 % Normal 37-47 [facility] Work Phone: Hemoglobin mass conc (Bld) 13.1 g/dL Normal 12.0-15.0 [facility] Work Phone: Lymphocytes/100 WBC Auto (Bld) 27.2 % Normal 19-41 [facility] Work Phone: MCH Auto Entitic mass (RBC) 29.8 pg Normal 27.0-32.0 [facility] Work Phone: MCHC Auto mass conc (RBC) 33.9 {g/gl} Normal 32-36 [facility] Work Phone: MCV Auto Entitic volume (RBC) 88.0 fL Normal 81-99 [facility] Internal [facility] Work Phone: Monocytes/100 WBC Auto (Bld) 6.9 % Normal 0-10 [facility] Work Phone: Neutrophils/100 WBC Auto (Bld) 64.2 % Normal 47-70 [facility] Work Phone: Platelet mean volume Auto Entitic volume (Bld) 10.4 fL Normal 6.2-12.0 [facility] Work Phone: Platelets Auto #/vol (Bld) 260 10*3/uL Normal 150-450 [facility] Internal [facility] Work Phone: RBC Auto #/vol (Bld) 4.40 {M/mm3} Normal 4.2-5.4 [facility] Work Phone: WBC Auto #/vol (Bld) 6.4 10*3/uL Normal 4.4-11.0 Com prehensive [facility] Work Phone: CBC, Employee 1.73 {X10_3/ul} Normal 0.83-4.51 Compre hensive [facility] Work Phone: CBC, Employee 4.1 {X10_3/uL} Normal 2.0-7.7 Compreh ensive [facility] Work Phone: CBC, Employee 38.3 fL Normal 35.1-43.9 [facility] Work Phone: Employee ProfileOrdered By: Inspector Fibrous Wallboard on 04-18-2017 Albumin mass conc 3.5 g/dL Normal 3.4-5.0 [facility] ensive Internal Medicine Work Phone: Albumin/Globulin mass ratio 0.9 {RATIO} Normal 0.9-2.4 [facility] Internal Medicine Work Phone: ALT enzyme act/vol 39 U/L Normal 12-78 [facility] Internal Medicine Work Phone: AST enzyme act/vol 56 U/L Abnormal 15-37 [facility] Internal Medicine Work Phone: Bilirubin mass conc 0.50 mg/dL Normal 0.20-1.00 [facility] Internal [facility] Work Phone: Bilirubin.direct mass conc 0.13 mg/dL Normal 0.00-0.30 [facility] Facility Internal Medicine Work Phone: Calcium mass conc 9.1 mg/dL Normal 8.5-10.1 [facility] Internal Medicine Work Phone: Chloride molar conc 104 mmol/L Normal 98-107 [facility] Internal Medicine Work Phone: Cholesterol in HDL mass conc 47 mg/dL Normal [facility] Internal Medicine Work Phone: Comment on above: The drugs N-Acetylcy steine and Metamizole may falselydepress this assay. Reference Range HDL <40 mg/dL Low HDL Cholesterol HDL >or= 60 mg/dL High HDL Cholesterol Cholesterol in LDL mass conc 113 mg/dL Normal 0-130 [facility] Internal Medicine Work Phone: Cholesterol mass conc 182 mg/dL Normal [facility] prehensive Internal Medicine Work Phone: Comment on above: <200 mg/dL Desirable 200-240 mg/dL Borderline >240 mg/dL High Risk CO2 molar conc 23.0 mmol/L Normal 21.0-32.0 [facility] Work Phone: Creatinine mass conc 0.67 mg/dL Normal 0.55-1.02 [facility] Internal Medicine Work Phone: Comment on above: The validity of the calculated GFR AND GFRAA in patients over70 years has not been determined. Clinical correlation isessential. GFR/1.73 sq M predicted among non-blacks MDRD vol rate/area (S/P/Bld) 107 mL/min/{1.73_m2} Normal Compreh ensive Internal Medicine Work Phone: Comment on above: Non- GFR Calc Globulin Calculated mass conc (S) 3.9 g/dL Abnormal 2.3-3.5 [facility] Work Phone: Glucose mass conc 82 mg/dL Normal 70-110 Com[facility] Internal Medicine Work Phone: Potassium molar conc 4.0 mmol/L Normal 3.5-5.1 Comp rehensive Internal Medicine Work Phone: Protein mass conc 7.4 g/dL Normal 6.4-8.2 [facility] Internal Medicine Work Phone: Sodium molar conc 139 mmol/L Normal 136-145 [facility] Internal Medicine Work Phone: Triglyceride mass conc 110 mg/dL Normal [facility] Internal Medicine Work Phone: Comment on above: The drugs N-Acetylcy steine and Metamizole may falselydepress this assay.Serum Triglycerides Reference Interval Normal <150 mg/dL Borderline high 150 - 199 mg/dL High 200 - 499 mg/dL Very High > or = 500 mg/dL Urea nitrogen mass conc 9 mg/dL Normal 7-18 [facility] Work Phone: Employee Profile 218 U/L Normal 84-246 Comprehe nsive Internal Medicine Work Phone: Employee Profile 22 mg/dL Normal 5-40 [facility] Internal Medicine Work Phone: Employee Profile 3.90 1 Normal Compre[facility] Internal Medicine Work Phone: Employee Profile 12 1 Normal 5-15 [facility] Internal Medicine Work Phone: Employee Profile 77 U/L Normal 45-117 [facility] Internal Medicine Work Phone: Employee Profile 2.7 mg/dL Normal 2.5-4.9 [facility] Internal Medicine Work Phone: Employee Profile 3.7 mg/dL Normal 2.6-6.0 Compre[facility] ns[facility] Internal Medicine Work Phone: Comment on above: The drugs N-Acetylcy steine and Metamizole may falselydepress this assay. Employee Profile 13.4 {RATIO} Normal 10-20 Compre hensive Internal Medicine Work Phone: Employee Profile 129 mL/min Normal Comprehe nsive Internal Medicine Work Phone: Comment on above: GFR Calc Nicotine Urine Drug ScreenOr dered By: Inspector Fibrous Wallboard on 04-18-2017 Nicotine Urine Drug Screen Normal [facility] Work Phone: Comment on above: CONFIRMATORY TESTING FOR ALL POSITIVE URINE DRUG SCREENRESULTS WILL ONLY BE SENT OUT UPON PHYSICIAN ORDER.The results of Urine Drug Screen methods provide onlypreliminary analytical test results. A more specificalternate chemical method must be used in order to obtain aconfirmed analytical result. Gas chromatography/massspectrometery (GC/MS) is the preferred confirmatory method.Clinical consideration and professional judgement should beapplied to any drug of abuse test result, particularly whenpreliminary positive results are used. Urinalysis, EmployeeOrdered By: Inspector Fibrous Wallboard on 04-18-2017 Urinalysis, Employee Negative Normal Comp rehensive Internal Medicine Work Phone: Comment on above: Cotinine is the firs t-stage metabolite of Nicotine. Urinalysis, Employee Yellow Normal Comp rehensive Internal Medicine Work Phone: Urinalysis, Employee 25 /ul Abnormal Comp rehensive Internal Medicine Work Phone: Urinalysis, Employee Normal Normal Comp rehensive Internal Medicine Work Phone: Urinalysis, Employee 6.5 1 Normal 5.0 - 8.0 Comp rehensive Internal Medicine Work Phone: Urinalysis, Employee 1.010 1 Normal 1.002-1 .03 0 [facility] Work Phone: Urinalysis, Employee Clear Normal Comp rehensive Internal Medicine Work Phone: PAP I-G w/rfx hrHPVOrdered B y: Inspector Fibrous Wallboard on 04-05-2017 Protein mass conc Comment Normal Compreh ensive Internal Medicine Work Phone: Comment on above: R87.5 PAP I-G w/rfx hrHPV Comment Normal Compr ensive Internal Medicine Work Phone: Comment on above: The HPV DNA reflex c riteria were not met with this specimenresult therefore, no HPV testing was performed.Performed at: - [address], [place] [id number] Director: Starr Hinton MD, Phone: [phone] This liquid based Th inPrep(R) pap test was screened withthe use of an image guided system. Bob Smith totechnologist (ASCP) Satisfactory for pipo luation. Endocervical and/or squamous metaplasticcells (endocervical component) are present. NEGATIVE FOR INTRAEP ITHELIAL LESION AND MALIGNANCY.FUNGAL ORGANISMS MORPHOLOGICALLY CONSISTENT WITH GERTRUDE SPECIES AREPRESENT. The Pap smear is a s creening test designed to aid in thedetection of premalignant and malignant conditions of theuterine cervix. It is not a diagnostic procedure andshould not be used as the sole means of detecting cervicalcancer. Both false-positive and false-negative reports dooccur. PAP I-G w/rfx hrHPV . Normal Compr ensive Internal Medicine Work Phone: ,UrineOrdered By: Sofia jonesm Assistant Brand Manager on 02-09-2017 ,Urine Negative Normal Comprehen [facility] Internal Medicine Work Phone: Comment on above: Very dilute urine sp ecimens, as indicated by a low specificgravity, may not contain textile machinery sales representative levels of hCG.If is still suspected, a first morning urinespecimen should be collected 48 hours later and tested. Basic Metabolic Profile (BMP )Ordered By: Inspector Fibrous Wallboard on 01-03-2017 Basic metabolic 2000 panel 9 1 Normal 5-15 [facility] Work Phone: Basic metabolic 2000 panel 26.0 mmol/L Normal 21.0-32.0 [facility] Work Phone: Basic metabolic 2000 panel 103 mmol/L Normal 98-107 [facility] Work Phone: Basic metabolic 2000 panel 3.9 mmol/L Normal 3.5-5.1 [facility] Work Phone: Basic metabolic 2000 panel 138 mmol/L Normal 136-145 [facility] Work Phone: Basic metabolic 2000 panel 9.3 mg/dL Normal 8.5-10.1 [facility] Work Phone: Basic metabolic 2000 panel 11.0 {RATIO} Normal 10-20 [facility] Work Phone: Basic metabolic 2000 panel 118 mL/min Normal [facility] Work Phone: Comment on above: GFR Calc Basic metabolic 2000 panel 0.73 mg/dL Normal 0.55-1.02 [facility] Work Phone: Comment on above: The validity of the calculated GFR AND GFRAA in patients over70 years has not been determined. Clinical correlation isessential. Basic metabolic 2000 panel 8 mg/dL Normal 7-18 [facility] Work Phone: Basic metabolic 2000 panel 88 mg/dL Normal 70-110 [facility] Work Phone: Basic metabolic 2000 panel 97 mL/min Normal [facility] Work Phone: Comment on above: Non- GFR Calc CBC W/Diff, AutomatedOrdered By: Inspector Fibrous Wallboard on 01-03-2017 Basophils/100 WBC Auto (Bld) 0.1 % Normal 0-1 [facility] Work Phone: Eosinophils/100 WBC Auto (Bld) 0.9 % Normal 0-5 [facility] Work Phone: Erythrocyte distribution width Auto Ratio (RBC) 12.4 % Normal 11.6-14.6 [facility] Work Phone: Hematocrit Auto Volume Fraction (Bld) 41.0 % Normal 37-47 [facility] Work Phone: Hemoglobin mass conc (Bld) 13.7 g/dL Normal 12.0-15.0 [facility] Work Phone: Lymphocytes/100 WBC Auto (Bld) 23.4 % Normal 19-41 [facility] Work Phone: MCH Auto Entitic mass (RBC) 29.4 pg Normal 27.0-32.0 [facility] Internal Medicine Work Phone: MCHC Auto mass conc (RBC) 33.4 {g/gl} Normal 32-36 [facility] Internal Medicine Work Phone: MCV Auto Entitic volume (RBC) 88.0 fL Normal 81-99 [facility] Internal Medicine Work Phone: Monocytes/100 WBC Auto (Bld) 6.9 % Normal 0-10 [facility] Work Phone: Neutrophils/100 WBC Auto (Bld) 68.5 % Normal 47-70 [facility] Work Phone: Platelet mean volume Auto Entitic volume (Bld) 10.8 fL Normal 6.2-12.0 [facility] Internal Medicine Work Phone: Platelets Auto #/vol (Bld) 293 10*3/uL Normal 150-450 [facility] Internal Medicine Work Phone: RBC Auto #/vol (Bld) 4.66 {M/mm3} Normal 4.2-5.4 [facility] Internal Medicine Work Phone: WBC Auto #/vol (Bld) 8.7 10*3/uL Normal 4.4-11.0 [facility]: CBC W/Diff, Automated 2.03 {X10_3/ul} Normal 0.83-4.51 [facility] Internal Medicine Work Phone: CBC W/Diff, Automated 5.9 {X10_3/uL} Normal 2.0-7.7 [facility] Internal Medicine Work Phone: CBC W/Diff, Automated 0.200 % Normal 0.0-0.9 [facility] Internal Medicine Work Phone: Comment on above: IG% - Immature Granu locytes (promyelocytes, myelocytes andmetamyelocytes) > 1% indicates that a LEFT SHIFT is Present. CBC W/Diff, Automated 39.3 fL Normal 35.1-43.9 [facility] Work Phone: HIV Screen 4TH GEN W/Confirm Ordered By: Inspector Fibrous Wallboard on 01-03-2017 HIV Screen 4TH GEN W/Confirm Non Reactive Normal [facility] Work Phone: Hep B Surface AntibodiesOrde red By: Inspector Fibrous Wallboard on 01-03-2017 HBV surface Ab Qn (S) Reactive Normal Com prehensive Internal Medicine Work Phone: Comment on above: Non Reactive: Incons istent with immunity, less than 10 mIU/mL Reactive: Consistent with immunity, greater than 9.9 mIU/mL Hepatitis B Surface AgOrdere d By: Inspector Fibrous Wallboard on 01-03-2017 Hepatitis B Surface Ag Negative Normal Co [facility] Internal Medicine Work Phone: Comment on above: Performed at: [place] [id number] Director: Baljeet Leiva PhD, Phone: [phone] Hepatitis C AntibodiesOrdere d By: Inspector Fibrous Wallboard on 01-03-2017 Hepatitis C Antibodies <0.1 Normal 0.0-0.9 [facility] Internal Medicine Work Phone: Comment on above: Negative: < 0.8 Inde terminate: 0.8 - 0.9 Positive: > 0.9 The CDC recommends that a positive HCV antibody result be followed up with a HCV Nucleic Acid Amplification test (959033). Liver ProfileOrdered By: Mando tem Assistant Brand Manager on 01-03-2017 Albumin mass conc 3.7 g/dL Normal 3.4-5.0 Compreh [facility] Internal Medicine Work Phone: ALP enzyme act/vol 74 U/L Normal 45-117 [facility] Work Phone: ALT enzyme act/vol 54 U/L Normal 12-78 [facility] Internal Medicine Work Phone: AST enzyme act/vol 54 U/L Abnormal 15-37 [facility] Internal Medicine Work Phone: Bilirubin mass conc 0.40 mg/dL Normal 0.20-1.00 [facility] Internal Medicine Work Phone: Bilirubin.direct mass conc 0.09 mg/dL Normal 0.00-0.30 [facility] Internal Medicine Work Phone: Globulin Calculated mass conc (S) 4.0 g/dL Abnormal 2.3-3.5 [facility] Internal Medicine Work Phone: Protein mass conc 7.7 g/dL Normal 6.4-8.2 Compre[facility]ive Internal Medicine Work Phone: Quantiferon TB-GoldOrdered B y: Inspector Fibrous Wallboard on 01-03-2017 M. tuberculosis tuberculin stim IFN-g Ql (Bld) Negative Normal [facility] Internal Medicine Work Phone: Comment on above: The specimen receive d for QuantiFERON testing was incubatedby the ordering institution. Specific procedures outlinedin our Directory of Services and in the package insert forthe QuantiFERON Gold (In Tube) test must be followed toenable for proper stimulation of cells for the productionof interferon gamma. M. tuberculosis tuberculin stim IFN-g Ql (Bld) Comment Normal [facility] Internal Medicine Work Phone: Comment on above: To be considered pos itive a specimen should have a TB Agminus Nil value greater than or equal to 0.35 IU/mL and inaddition the TB Ag minus Nil value must be greater than orequal to 25% of the Nil value. There may be insufficientinformation in these values to differentiate between somenegative and some indeterminate test values. The QuantiFERON TB G old (in Tube) assay is intended for useas an aid in the diagnosis of TB infection. Negativeresults suggest that there is no TB infection. In patientswith high suspicion of exposure, a negative test should berepeated. A positive test indicates infection withMycobacterium tuberculosis. Among individuals withouttuberculosis infection, a positive test may be due toexposure to M. kansasii, M. szulgai or M. marinum. On theInternet, go to cdc.gov/tb for further details. M. tuberculosis tuberculin stim IFN-g Ql (Bld) 0.06 {IU/mL} Normal [facility] Internal Medicine Work Phone: M. tuberculosis tuberculin stim IFN-g Ql (Bld) > 10.00 Normal [facility] Work Phone: M. tuberculosis tuberculin stim IFN-g Ql (Bld) 0.15 {IU/mL} Normal [facility] Work Phone: M. tuberculosis tuberculin stim IFN-g Ql (Bld) 0.21 {IU/mL} Normal [facility] Work Phone: CBC, EmployeeOrdered By: Mando tem Assistant Brand Manager on 04-25-2016 Basophils/100 WBC Auto (Bld) 0.3 % Normal 0-1 [facility] Work Phone: Eosinophils/100 WBC Auto (Bld) 1.2 % Normal 0-5 [facility] Work Phone: Erythrocyte distribution width Auto Ratio (RBC) 12.2 % Normal 11.6-14.6 [facility] Work Phone: Hematocrit Auto Volume Fraction (Bld) 37.8 % Normal 37-47 [facility] Work Phone: Hemoglobin mass conc (Bld) 12.9 g/dL Normal 12.0-15.0 [facility] Work Phone: Lymphocytes/100 WBC Auto (Bld) 29.4 % Normal 19-41 [facility] Work Phone: MCH Auto Entitic mass (RBC) 29.8 pg Normal 27.0-32.0 [facility] Work Phone: MCHC Auto mass conc (RBC) 34.1 {g/gl} Normal 32-36 [facility] Work Phone: MCV Auto Entitic volume (RBC) 87.3 fL Normal 81-99 [facility] Work Phone: Monocytes/100 WBC Auto (Bld) 8.3 % Normal 0-10 [facility] Work Phone: Neutrophils/100 WBC Auto (Bld) 60.6 % Normal 47-70 [facility] Work Phone: Platelet mean volume Auto Entitic volume (Bld) 11.0 fL Normal 6.2-12.0 [facility] Work Phone: Platelets Auto #/vol (Bld) 235 10*3/uL Normal 150-450 [facility] Work Phone: RBC Auto #/vol (Bld) 4.33 {M/mm3} Normal 4.2-5.4 Co [facility] Internal Medicine Work Phone: WBC Auto #/vol (Bld) 6.5 10*3/uL Normal 4.4-11.0 Com prehensive Internal Medicine Work Phone: CBC, Employee 38.1 fL Normal 35.1-43.9 Comprehensi ve Internal Medicine Work Phone: CBC, Employee 4.0 {X10_3/uL} Normal 2.0-7.7 Compreh ensive Internal Medicine Work Phone: CBC, Employee 1.92 {X10_3/ul} Normal 0.83-4.51 Compre [facility] Internal Medicine Work Phone: Employee ProfileOrdered By: Inspector Fibrous Wallboard on 04-25-2016 Albumin mass conc 3.4 g/dL Normal 3.4-5.0 [facility] Work Phone: Albumin/Globulin mass ratio 0.9 {RATIO} Normal 0.9-2.4 [facility] Internal Medicine Work Phone: ALT enzyme act/vol 30 U/L Normal 12-78 [facility] Internal Medicine Work Phone: AST enzyme act/vol 42 U/L Abnormal 15-37 [facility] Work Phone: Bilirubin mass conc 0.40 mg/dL Normal 0.20-1.00 Compr [facility] Internal Medicine Work Phone: Bilirubin.direct mass conc 0.07 mg/dL Normal 0.00-0.30 [facility] Internal Medicine Work Phone: Calcium mass conc 8.7 mg/dL Normal 8.5-10.1 Compreh ensive Internal Medicine Work Phone: Chloride molar conc 109 mmol/L Abnormal 98-107 [facility] Internal Medicine Work Phone: Cholesterol in HDL mass conc 43 mg/dL Normal [facility] Work Phone: Comment on above: The drugs N-Acetylcy steine and Metamizole may falsely deressthis assay. Reference Range HDL <40 mg/dL Low HDL Cholesterol HDL >or= 60 mg/dL High HDL Cholesterol Cholesterol in LDL mass conc 114 mg/dL Normal 0-130 [facility] Work Phone: Cholesterol mass conc 180 mg/dL Normal Com prehensive Internal Medicine Work Phone: Comment on above: <200 mg/dL Desirable 200-240 mg/dL Borderline >240 mg/dL High Risk CO2 molar conc 25.0 mmol/L Normal 21.0-32.[address] [facility] Work Phone: Creatinine mass conc 0.70 mg/dL Normal 0.55-1.20 Comp rehensive Internal Medicine Work Phone: Comment on above: The validity of the calculated GFR AND GFRAA in patients over70 years has not been determined. Clinical correlation isessential. GFR/1.73 sq M predicted among non-blacks MDRD vol rate/area (S/P/Bld) 102 mL/min/{1.73_m2} Normal Compreh ensive Internal Medicine Work Phone: Comment on above: Non- GFR Calc Globulin Calculated mass conc (S) 3.7 g/dL Abnormal 2.3-3.5 [facility] Work Phone: Glucose mass conc 86 mg/dL Normal 70-110 Com[facility] Internal Medicine Work Phone: Potassium molar conc 3.9 mmol/L Normal 3.5-5.1 Comp rehensive Internal Medicine Work Phone: Protein mass conc 7.1 g/dL Normal 6.4-8.2 Compre[facility] Internal Medicine Work Phone: Sodium molar conc 142 mmol/L Normal 136-145 [facility] Work Phone: Triglyceride mass conc 116 mg/dL Normal [facility] Work Phone: Comment on above: The drugs N-Acetylcy steine and Metamizole may falsely deressthis assay.Serum Triglycerides Reference Interval Normal <150 mg/dL Borderline high 150 - 199 mg/dL High 200 - 499 mg/dL Very High > or = 500 mg/dL Urea nitrogen mass conc 12 mg/dL Normal 7-18 [facility] Work Phone: Employee Profile 80 U/L Normal 50-136 Comprehe nsive Internal Medicine Work Phone: Employee Profile 3.0 mg/dL Normal 2.5-4.9 Comprehe [facility]ive Internal Medicine Work Phone: Employee Profile 8 1 Normal 5-15 Compre[facility]ive Internal Medicine Work Phone: Employee Profile 4.0 mg/dL Normal 2.6-6.0 Compre[facility]ive Internal Medicine Work Phone: Comment on above: The drugs N-Acetylcy steine and Metamizole may falsely deressthis assay. Employee Profile 4.20 1 Normal Comprehe nsive Internal Medicine Work Phone: Employee Profile 17.2 {RATIO} Normal 10-20 Compre hensive Internal Medicine Work Phone: Employee Profile 23 mg/dL Normal 5-40 Comprehe nsive Internal Medicine Work Phone: Employee Profile 194 U/L Normal 84-246 Compre[facility]ive Internal Medicine Work Phone: Employee Profile 124 mL/min Normal Comprehe nsive Internal Medicine Work Phone: Comment on above: GFR Calc Nicotine Urine Drug ScreenOr dered By: Inspector Fibrous Wallboard on 04-25-2016 Nicotine Urine Drug Screen Normal [facility] Work Phone: Comment on above: CONFIRMATORY TESTING FOR ALL POSITIVE URINE DRUG SCREENRESULTS WILL ONLY BE SENT OUT UPON PHYSICIAN ORDER.The results of Urine Drug Screen methods provide onlypreliminary analytical test results. A more specificalternate chemical method must be used in order to obtain aconfirmed analytical result. Gas chromatography/massspectrometery (GC/MS) is the preferred confirmatory method.Clinical consideration and professional judgement should beapplied to any drug of abuse test result, particularly whenpreliminary positive results are used. Urinalysis, EmployeeOrdered By: Inspector Fibrous Wallboard on 04-25-2016 Urinalysis, Employee Negative Normal Comp rehensive Internal Medicine Work Phone: Comment on above: Cotinine is the firs t-stage metabolite of Nicotine. Urinalysis, Employee 7.0 1 Normal 5.0 - 8.0 Comp rehensive Internal Medicine Work Phone: Urinalysis, Employee 1.010 1 Normal 1.002-1 .03 0 [facility] Work Phone: Urinalysis, Employee Normal Normal Comp rehensive Internal Medicine Work Phone: Urinalysis, Employee Clear Normal Comp rehensive Internal Medicine Work Phone: Urinalysis, Employee Yellow Normal Comp [facility] Internal Medicine Work Phone: Urinalysis, Employee 25 /ul Abnormal Comp [facility] Internal Medicine Work Phone: Urinalysis, Employee 10 /ul Abnormal Comp [facility]ive Internal Medicine Work Phone: PAP I-G w/rfx hrHPVOrdered B y: Inspector Fibrous Wallboard on 02-25-2016 Protein mass conc Comment Normal Compreh ensive Internal Medicine Work Phone: Comment on above: R87.5 PAP I-G w/rfx hrHPV Comment Normal Compr ehensive Internal Medicine Work Phone: Comment on above: Bob Vinson totechnologist NEGATIVE FOR INTRAEP ITHELIAL LESION AND MALIGNANCY.FUNGAL ORGANISMS MORPHOLOGICALLY CONSISTENT WITH GERTRUDE SPECIES AREPRESENT. The Pap smear is a s creening test designed to aid in thedetection of premalignant and malignant conditions of theuterine cervix. It is not a diagnostic procedure andshould not be used as the sole means of detecting cervicalcancer. Both false-positive and false-negative reports dooccur. The HPV DNA reflex rebel sheth were not met with this specimenresult therefore, no HPV testing was performed.Performed at: [address], [place] [id number] Director: Starr Hinton MD, Phone: [phone] Satisfactory for pipo coronado. This liquid based Th inPrep(R) pap test was screened withthe use of an image guided system. PAP I-G w/rfx hrHPV . Normal Compr ehensive Internal Medicine Work Phone: Rapid Strep Test, Office ([phone])on 07-03-2015 S. pyogenes Ag EIA Ql (Throat) Negative Normal [facility]; [facility] Work Phone: Rapid Strep Test, Office ([phone])Ordered By: Vance Haddad on 07-03-2015 S. pyogenes Ag IA Ql (Unsp spec) Negative Normal [facility] Work Phone: Throat Culture ([id number])Ordere d By: Inspector Fibrous Wallboard on 07-03-2015 Bacteria identified Respiratory culture Nom (Unsp spec) Final report Normal [facility] Work Phone: Comment on above: PATIENT NOT FASTINGP ERFORMED BY: SHAILA Erly [id number] [facility] [id number] Information: SRC:GERMAIN [id number] Bacteria identified Respiratory culture Nom (Unsp spec) RRF Normal [facility] Work Phone: Comment on above: Routine respiratory jeny PATIENT NOT FASTINGP ERFORMED BY: SHAILA REM ENTERPRISETrigg [facility] Hospital [id number] Information: SRC:GERMAIN [id number] CBC, EmployeeOrdered By: Mando tem Assistant Brand Manager on 04-29-2015 Basophils/100 WBC Auto (Bld) 0.1 % Normal 0-1 [facility] Work Phone: Eosinophils/100 WBC Auto (Bld) 1.3 % Normal 0-5 [facility] Work Phone: Erythrocyte distribution width Auto Ratio (RBC) 12.2 % Normal 11.6-14.6 [facility] Work Phone: Hematocrit Auto Volume Fraction (Bld) 38.0 % Normal 37-47 [facility] Work Phone: Hemoglobin mass conc (Bld) 12.9 g/dL Normal 12.0-15.0 [facility] Work Phone: Lymphocytes/100 WBC Auto (Bld) 26.9 % Normal 19-41 [facility] Work Phone: MCH Auto Entitic mass (RBC) 29.7 pg Normal 27.0-32.0 [facility] Work Phone: MCHC Auto mass conc (RBC) 33.9 {g/gl} Normal 32-36 [facility] Work Phone: MCV Auto Entitic volume (RBC) 87.6 fL Normal 81-99 [facility] Work Phone: Monocytes/100 WBC Auto (Bld) 7.2 % Normal 0-10 [facility] Work Phone: Neutrophils/100 WBC Auto (Bld) 64.4 % Normal 47-70 [facility] Work Phone: Platelet mean volume Auto Entitic volume (Bld) 10.4 fL Normal 6.2-12.0 [facility] Internal Medicine Work Phone: Platelets Auto #/vol (Bld) 252 10*3/uL Normal 150-450 [facility] Work Phone: RBC Auto #/vol (Bld) 4.34 {M/mm3} Normal 4.2-5.4 Co m[facility] Work Phone: WBC Auto #/vol (Bld) 7.6 10*3/uL Normal 4.4-11.0 Com prehensive [facility] Work Phone: CBC, Employee 38.4 fL Normal 35.1-43.9 Comprehensi ve Internal Medicine Work Phone: CBC, Employee 2.03 {X10_3/ul} Normal 0.83-4.51 Compre hensive [facility] Work Phone: CBC, Employee 4.9 {X10_3/uL} Normal 2.0-7.7 Compreh ensive [facility] Work Phone: Employee ProfileOrdered By: Inspector Fibrous Wallboard on 04-29-2015 Albumin mass conc 3.7 g/dL Normal 3.4-5.0 Compreh ensive [facility] Work Phone: Albumin/Globulin mass ratio 1.0 {RATIO} Normal 0.9-2.4 [facility] Work Phone: ALT enzyme act/vol 34 U/L Normal 12-78 [facility] Internal Medicine Work Phone: AST enzyme act/vol 40 U/L Abnormal 15-37 [facility] Internal Medicine Work Phone: Bilirubin mass conc 0.40 mg/dL Normal 0.20-1.00 [facility] Internal Medicine Work Phone: Bilirubin.direct mass conc 0.09 mg/dL Normal 0.00-0.30 [facility] Internal Medicine Work Phone: Calcium mass conc 9.1 mg/dL Normal 8.5-10.1 Compreh [facility] Internal Medicine Work Phone: Chloride molar conc 105 mmol/L Normal 98-107 [facility] Internal Medicine Work Phone: Cholesterol in HDL mass conc 49 mg/dL Normal [facility] Internal Medicine Work Phone: Comment on above: Reference Range HDL <40 mg/dL Low HDL Cholesterol HDL >or= 60 mg/dL High HDL Cholesterol Cholesterol in LDL mass conc 141 mg/dL Abnormal 0-130 [facility] Internal Medicine Work Phone: Cholesterol mass conc 209 mg/dL Abnormal [facility] Internal Medicine Work Phone: Comment on above: <200 mg/dL Desirable 200-240 mg/dL Borderline >240 mg/dL High Risk CO2 molar conc 24.0 mmol/L Normal 21.0-32.0 [facility] Work Phone: Creatinine mass conc 0.68 mg/dL Normal 0.55-1.20 [facility] Internal Medicine Work Phone: Comment on above: Please note revised CREATININE reference range /22/2015. GFR/1.73 sq M predicted among non-blacks MDRD vol rate/area (S/P/Bld) 107 mL/min/{1.73_m2} Normal [facility] Internal Medicine Work Phone: Globulin Calculated mass conc (S) 3.6 g/dL Abnormal 2.3-3.5 [facility] Internal Medicine Work Phone: Glucose mass conc 81 mg/dL Normal 70-110 Compreh ensive [facility] Medicine Work Phone: Potassium molar conc 4.0 mmol/L Normal 3.5-5.1 Comp rehensive [facility] Work Phone: Protein mass conc 7.3 g/dL Normal 6.4-8.2 Compreh ensive [facility] Work Phone: Sodium molar conc 138 mmol/L Normal 136-145 Compreh ensive [facility] Work Phone: Triglyceride mass conc 94 mg/dL Normal Co mprehensive [facility] Work Phone: Comment on above: Serum Triglycerides Reference Interval Normal <150 mg/dL Borderline high 150 - 199 mg/dL High 200 - 499 mg/dL Very High > or = 500 mg/dL Urea nitrogen mass conc 10 mg/dL Normal 7-18 [facility] Work Phone: Employee Profile 14.7 {RATIO} Normal 10-20 Compre hensive [facility] Work Phone: Employee Profile 3.0 mg/dL Normal 2.5-4.9 Comprehe nsive [facility] Work Phone: Employee Profile 78 U/L Normal 50-136 Comprehe nsive [facility] Work Phone: Employee Profile 9 1 Normal 5-15 Comprehe nsive [facility] Work Phone: Employee Profile 3.4 mg/dL Normal 2.6-6.0 Comprehe nsive [facility] Work Phone: Employee Profile 49 mg/dL Normal Comprehe nsive [facility] Work Phone: Comment on above: Reference Range HDL <40 mg/dL Low HDL Cholesterol HDL >or= 60 mg/dL High HDL Cholesterol Employee Profile 19 mg/dL Normal 5-40 Comprehe nsive [facility] Work Phone: Employee Profile 208 U/L Normal 84-246 Comprehe nsive [facility] Work Phone: Employee Profile 130 mL/min Normal Comprehe nsive [facility] Work Phone: Urinalysis, EmployeeOrdered By: Inspector Fibrous Wallboard on 04-29-2015 Urinalysis, Employee Yellow Normal Comp rehensive [facility] Work Phone: Urinalysis, Employee Negative Normal Comp rehensive [facility] Work Phone: Urinalysis, Employee Sl. Cloudy Normal [facility] Work Phone: Urinalysis, Employee Normal Normal Comp [facility] Internal Medicine Work Phone: Urinalysis, Employee 8.0 1 Normal 5.0 - 8.0 Comp rehensive [facility] Work Phone: Urinalysis, Employee 1.010 1 Normal 1.002-1 .03 0 [facility] Work Phone: PAP I-G w/rfx hrHPVOrdered B y: Inspector Fibrous Wallboard on 02-18-2015 PAP I-G w/rfx hrHPV Comment Normal Compr [facility] Internal Medicine Work Phone: Comment on above: This liquid based Th inPrep(R) pap test was screened withthe use of an image guided system. The Pap smear is a s creening test designed to aid in thedetection of premalignant and malignant conditions of theuterine cervix. It is not a diagnostic procedure andshould not be used as the sole means of detecting cervicalcancer. Both false-positive and false-negative reports dooccur. The HPV DNA reflex c riteria were not met with this specimenresult therefore, no HPV testing was performed.Performed at: [address] [id number] Director: Graham Mejia MD, Phone: [phone] Valente Kyle, Cyto technologist (ASCP) Satisfactory for pipo luation. No endocervical component is identified. NEGATIVE FOR INTRAEP ITHELIAL LESION AND MALIGNANCY. PAP I-G w/rfx hrHPV . Normal [facility] Internal Medicine Work Phone: Rapid Flu ([phone] [id number])Ordered By: Spring Elizabeth on 08-06-2014 FLUAV Ag IA Ql (Throat) Positive Abnormal [facility] Work Phone: Rapid Flu ([phone] x 2)on 07-15 FLUAV Ag IA Ql (Throat) Positive Abnormal [facility]; [facility] Work Phone: CBCEMOrdered By: Magda luz on 05-12-2014 Erythrocyte distribution width Auto Ratio (RBC) 12.3 % Normal 11.6-14.6 [facility] Work Phone: Hematocrit Auto Volume Fraction (Bld) 38.1 % Normal 37-47 [facility] Work Phone: Hemoglobin mass conc (Bld) 12.8 g/dL Normal 12.0-15.0 [facility] Work Phone: MCH Auto Entitic mass (RBC) 29.3 pg Normal 27.0-32.0 [facility] Work Phone: MCHC Auto mass conc (RBC) 33.6 {g/gl} Normal 32-36 [facility] Work Phone: MCV Auto Entitic volume (RBC) 87.2 fL Normal 81-99 [facility] Work Phone: Platelet mean volume Auto Entitic volume (Bld) 10.3 fL Normal 6.2-12.0 [facility] Work Phone: Platelets Auto #/vol (Bld) 253 10*3/uL Normal 150-450 [facility] Work Phone: RBC Auto #/vol (Bld) 4.37 {M/mm3} Normal 4.2-5.4 [facility] m[facility] Work Phone: WBC Auto #/vol (Bld) 7.0 10*3/uL Normal 4.4-11.0 [facility] prehensive Internal Medicine Work Phone: CBCEM 39.8 fL Normal 35.1-43.9 [facility] Work Phone: CBCEM 2.11 {X10_3/ul} Normal 0.83-4.51 Comprehen sive Internal Medicine Work Phone: CBCEM 4.2 {X10_3/uL} Normal 2.0-7.7 Comprehens clemente Internal Medicine Work Phone: CBCEM 0.3 % Normal 0-1 [facility] Work Phone: CBCEM 1.1 % Normal 0-5 [facility] Work Phone: CBCEM 7.7 % Normal 0-10 [facility] Work Phone: CBCEM 30.2 % Normal 19-41 [facility] Work Phone: CBCEM 60.7 % Normal 47-70 [facility] Work Phone: EMPOrdered By: System Manage r on 05-12-2014 Albumin mass conc 3.9 g/dL Normal 3.4-5.0 Compreh ensive [facility] Work Phone: Albumin/Globulin mass ratio 1.1 {RATIO} Normal 0.9-2.4 [facility] Work Phone: ALT enzyme act/vol 22 U/L Normal 12-78 Compre hensive [facility] Work Phone: AST enzyme act/vol 38 U/L Abnormal 15-37 Compre hensive [facility] Work Phone: Calcium mass conc 9.1 mg/dL Normal 8.5-10.1 Compreh ensive [facility] Work Phone: Chloride molar conc 106 mmol/L Normal 98-107 Compr ehensive [facility] Work Phone: Cholesterol in HDL mass conc 45 mg/dL Normal [facility] Work Phone: Comment on above: Reference RangeHDL < 40 mg/dL Low HDL CholesterolHDL >or= 60 mg/dL High HDL Cholesterol Cholesterol in LDL mass conc 150 mg/dL Abnormal 0-130 [facility] Work Phone: Cholesterol mass conc 212 mg/dL Abnormal Com prehensive [facility] Work Phone: Comment on above: <200 mg/dL Desirable 200-240 mg/dL Borderline>240 mg/dL High Risk CO2 molar conc 24.0 mmol/L Normal 21.0-32.0 Comprehen sive [facility] Work Phone: Creatinine mass conc 0.8 mg/dL Normal 0.6-1.0 Comp rehensive [facility] Work Phone: GFR/1.73 sq M predicted among non-blacks MDRD vol rate/area (S/P/Bld) 89 mL/min/{1.73_m2} Normal Comprehe nsive [facility] Medicine Work Phone: Globulin Calculated mass conc (S) 3.6 g/dL Normal 2.7-4.2 [facility] Work Phone: Glucose mass conc 80 mg/dL Normal 70-110 Compreh ensive [facility] Work Phone: Potassium molar conc 3.9 mmol/L Normal 3.5-5.1 Comp rehensive [facility] Work Phone: Protein mass conc 7.5 g/dL Normal 6.4-8.2 Compreh ensive [facility] Work Phone: Sodium molar conc 137 mmol/L Normal 136-145 Compreh ensive [facility] Work Phone: Triglyceride mass conc 87 mg/dL Normal 0-199 [facility] m[facility] Work Phone: Comment on above: Serum Triglycerides Reference IntervalNormal <150 mg/dLBorderline high 150 - 199 mg/dLHigh 200 - 499 mg/dLVery High > or = 500 mg/dL Urea nitrogen mass conc 12 mg/dL Normal 7-18 [facility] Work Phone: EMP 218 U/L Normal 87-241 [facility] Work Phone: EMP 17 mg/dL Normal 5-40 [facility] Work Phone: EMP 45 mg/dL Normal [facility] Work Phone: Comment on above: Reference RangeHDL < 40 mg/dL Low HDL CholesterolHDL >or= 60 mg/dL High HDL Cholesterol EMP 7 1 Normal 5-15 [facility] Work Phone: EMP 0.09 mg/dL Normal 0.00-0.30 [facility] Work Phone: EMP 0.40 mg/dL Normal 0.-1.0 [facility] Work Phone: EMP 70 U/L Normal 50-136 [facility] Work Phone: EMP 3.6 mg/dL Normal 2.5-4.9 [facility] Work Phone: EMP 3.2 mg/dL Normal 2.6-6.0 [facility] Work Phone: EMP 15.0 {RATIO} Normal 10-20 Comprehensiv e [facility] Work Phone: EMP 108 mL/min Normal [facility] Work Phone: UAEMOrdered By: System Manag er on 05-12-2014 UAEM Negative Normal [facility] Work Phone: UAEM 7.0 1 Normal 5.0 - 8.0 [facility] Work Phone: UAEM Normal Normal [facility] Work Phone: UAEM Clear Normal [facility] Work Phone: UAEM Yellow Normal [facility] Work Phone: UAEM 1.010 1 Normal 1.002-1.03 0 [facility] Work Phone: UAEM 100 /ul Abnormal [facility] Work Phone: [id number] By: System Man ager on 01-24-2014 PAPIG3 Comment Normal [facility] Work Phone: Comment on above: Richard James, Event Producer (ASCP) This liquid based Th inPrep(R) pap test was screened withthe use of an image guided system. NEGATIVE FOR INTRAEP ITHELIAL LESION AND MALIGNANCY.FUNGAL ORGANISMS MORPHOLOGICALLY CONSISTENT WITH GERTRUDE SPECIES AREPRESENT. The Pap smear is a s creening test designed to aid in thedetection of premalignant and malignant conditions of theuterine cervix. It is not a diagnostic procedure andshould not be used as the sole means of detecting cervicalcancer. Both false-positive and false-negative reports dooccur. Satisfactory for pipo luation. No endocervical component is identified. PAPIG3 . Normal [facility] Work Phone: PAPIG3 Negative Normal [facility] Work Phone: Comment on above: This high-risk HPV t est detects thirteen high-risk types(16/18/31/33/35/39/45/51/52/56/58/59/68) withoutdifferentiation.Performed at: - [facility] [id number] Director: Graham Mejia MD, Phone: [phone] at: =[facility] [id number] Director: Michaelle Mejia MD, Phone: [phone] CUSPOrdered By: System [employer] er on 05-24-2013 CUSP See Note Normal [facility] Work Phone: Comment on above: Mixed normal respira tory jeny. No Streptococcus pneumoniae, beta-hemolytic Streptococcus or Staphylococcus aureus isolated. Gram Stain3+ Gram po sitive cocci1+ Gram negative diplococci1+ Intracellular Gram positive cocciRare Gram negative cocco bacillus CBCDOrdered By: System Manag er on 01-28-2011 Basophils/100 WBC Auto (Bld) 0.1 % Normal 0-1 [facility] Work Phone: Eosinophils/100 WBC Auto (Bld) 1.3 % Normal 0-5 [facility] Work Phone: Erythrocyte distribution width Auto Ratio (RBC) 12.8 % Normal 11.6-14.6 [facility] Work Phone: Hematocrit Auto Volume Fraction (Bld) 38.8 % Normal 37-47 [facility] Work Phone: Hemoglobin mass conc (Bld) 13.6 g/dL Normal 12.0-16.0 [facility] Work Phone: Lymphocytes/100 WBC Auto (Bld) 23.9 % Normal 19-41 [facility] Work Phone: MCH Auto Entitic mass (RBC) 30.2 pg Normal 27.0-32.0 [facility] Work Phone: MCHC Auto mass conc (RBC) 35.0 g/dL Normal 32-36 [facility] Work Phone: MCV Auto Entitic volume (RBC) 86.1 fL Normal 81-99 [facility] Work Phone: Monocytes/100 WBC Auto (Bld) 5.4 % Normal 0-10 [facility] Work Phone: Neutrophils Auto #/vol (Bld) 4.4 3/uL Normal 2.0-7.7 [facility] Work Phone: Neutrophils/100 WBC Auto (Bld) 69.3 % Normal 47-70 [facility] Work Phone: Platelet mean volume Auto Entitic volume (Bld) 8.9 fL Normal 6.5-12.0 [facility] Work Phone: Platelets Auto #/vol (Bld) 222 10*3/uL Normal 150-450 [facility] Work Phone: RBC Auto #/vol (Bld) 4.51 {M/mm3} Normal 4.2-5.4 [facility] Work Phone: WBC Auto #/vol (Bld) 6.4 10*3/uL Normal 4.4-11.0 [facility] Work Phone: COMP METABOLICOrdered By: Arvind stem Assistant Brand Manager on 01-28-2011 Albumin mass conc 3.8 g/dL Normal 3.4-5.0 [facility] Internal Medicine Work Phone: Albumin/Globulin mass ratio 1.0 {RATIO} Normal 0.9-2.4 [facility] Internal [facility] Work Phone: ALP enzyme act/vol 67 U/L Normal 50-136 Compre [facility] Internal Medicine Work Phone: ALT enzyme act/vol 28 U/L Normal 12-78 Compre [facility] Internal Medicine Work Phone: Anion gap 3 molar conc 9 mmol/L Normal 5-15 [facility] Work Phone: AST enzyme act/vol 33 U/L Normal 15-37 Compre [facility] Internal Medicine Work Phone: Bilirubin mass conc 0.40 mg/dL Normal 0.00-1.00 Compr ehensive [facility] Medicine Work Phone: Calcium mass conc 9.4 mg/dL Normal 8.5-10.1 Compreh ensive [facility] Work Phone: Chloride molar conc 105 mmol/L Normal 98-107 Compr ehensive [facility] Work Phone: CO2 molar conc 27.0 mmol/L Normal 21.0-32.0 Comprehen sive [facility] Medicine Work Phone: Creatinine mass conc 0.8 mg/dL Normal 0.6-1.0 Comp rehensive [facility] Medicine Work Phone: GFR/1.73 sq M predicted among blacks MDRD vol rate/area (S/P/Bld) 110 mL/min/{1.73_m2} Normal Comprehensi ve Internal Medicine Work Phone: GFR/1.73 sq M.predicted MDRD vol rate/area 91 mL/min/{1.73_m2} Normal Comprehensiv e [facility] Medicine Work Phone: Globulin Calculated mass conc (S) 3.7 g/dL Normal 2.7-4.2 [facility] Work Phone: Glucose mass conc 85 mg/dL Normal 70-110 Compreh ensive [facility] Work Phone: Potassium molar conc 4.4 mmol/L Normal 3.5-5.1 Comp rehensive [facility] Work Phone: Protein mass conc 7.5 g/dL Normal 6.4-8.2 Compreh ensive [facility] Work Phone: Sodium molar conc 141 mmol/L Normal 136-145 Compreh ensive [facility] Work Phone: Urea nitrogen mass conc 12 mg/dL Normal 7-18 [facility] Work Phone: Urea nitrogen/Creatinine mass ratio 15.0 {RATIO} Normal 10-20 [facility] Work Phone: TSHOrdered By: System Manage r on 01-28-2011 Thyrotropin Qn 0.78 {uIU/mL} Normal 0.358-3.74 Compreh ensive [facility] Work Phone: VIT D,25 [id number] By: Arvind stem Assistant Brand Manager on 01-28-2011 VIT D,25 [id number] 32.5 ng/mL Normal 32.0-100.0 Comprehens clemente [facility] Work Phone: Comment on above: Recent studies consi suyapa the lower limit of 32.0 ng/mL to kourtney threshold for optimal health.Que PRINCE. J Nutr. 2004;135(2):317-22.Performed at: [address] [id number] Director: Rajani Hay MD, Phone: [phone] ANGELINA CULTURE-OTHER ([id number])Ord ered By: Inspector Fibrous Wallboard on 08-31-2010 Bacteria identified Respiratory culture Nom (Unsp spec) Final report Normal [facility] Work Phone: Comment on above: PATIENT NOT FASTINGP ERFORMED BY: [employer] [id number] Information: SRC:GERMAIN [id number] Bacteria identified Respiratory culture Nom (Unsp spec) BETAGA Normal [facility] Work Phone: Comment on above: Beta hemolytic Strep tococcus, group AHeavy growthPenicillin continues to be the drug of choice for infectionscaused by beta hemolytic streptococci in groups A,B,C and G.No penicillin resistance has been described among theseorganisms and surveillance for emerging resistance is notrecommended. (JEROD Aguilar. Clinical Microbiology Newsletter,1993; FIONA Sanchez, et al. Diagnostic Microbiology andInfectious Disease, January,.) PATIENT NOT FASTINGP ERFORMED BY: [address] [id number] Information: SRC:THRT [id number] ANCA [id number] By: Giovanni m Assistant Brand Manager on 01-15-2010 ANCA [id number] <1:20 Normal [facility] Work Phone: Comment on above: The presence of posi tive fluorescence exhibiting P-ANCA orC-ANCA patterns alone is not specific for the diagnosis ofWegener's Granulomatosis (WG) or microscopic polyangiitis.Decisions about treatment should not be used solely on ANCAIFA results. The International ANCA Group Consensusrecommends follow up testing of positive sera with both MO-3 and MPO-ANCA enzyme immunoassays. As many as 5% serumsamples are positive only by EIA. Ref. AM J Clin Ohmpew7910;111:507-513. The atypical pANCA p attern has been observed in asignificant percentage of patients with ulcerative colitis,primary sclerosing cholangitis and autoimmune hepatitis.Performed at: [address] [id number] Director: Rajani Hay MD SINUS/FACIAL BONEOrdered By: Inspector Fibrous Wallboard on 01-15-2010 SINUS/FACIAL BONE See Note Normal Compreh ensive [facility] Medicine Work Phone: Comment on above: Exam Number: [id number] CLINICAL:29 year old female with sinusitis, nasal congestion, headaches, andcough. CT MAXILLOFACIAL SINUSES TECHNIQUE:The patient was scanned in a multi detector CT scanner. Highresolution axial imaging was performed without the administration ofintravenous contrast material. Coronal images were reconstructed. COMPARISON:None. FINDINGS: FRONTAL SINUSES:Normal development and aeration of the bilateral frontal sinuseswithout mucosal inflammatory disease. ETHMOIDAL SINUSES:Normal development and aeration of the bilateral ethmoidal air cellswithout mucosal inflammatory disease. MAXILLARY SINUSES:Normal development and aeration of the bilateral maxillary antrawithout mucosal inflammatory disease. SPHENOIDAL SINUSES:Normal development and aeration of the bilateral sphenoid sinuswithout mucosal inflammatory disease. OMU:Patent bilaterally. MIDDLE TURBINATES:Normal bilateral middle turbinates without a angela bullosa orparadoxical curvature. INFERIOR TURBINATES:Normal bilateral inferior turbinates. NASAL SEPTUM:Slight deviation of the nasal septum to the left. NASAL CAVITY:There is patency of the bilateral nasal airways without ademonstrated mass or mucosal obliteration. The visualized osseous structures are normal. The visualized brainshows no abnormality. There is convergent gaze of the ocular globes. IMPRESSION:Normal CT examination of the maxillofacial sinuses withoutdemonstrated acute or chronic sinusitis. Reported By: Parag QUIROZ.pertussisB.parapertussis P CROrdered By: Inspector Fibrous Wallboard on 10-22-2009 B. parapertussis DNA ROBERT+probe Ql (Unsp spec) Negative Normal [facility] Work Phone: Comment on above: .This test was devel oped and its performance characteristics determinedby [employer]. It has not been cleared or approved by theU.S. Food and Drug Administration. The FDA has determined that suchclearance or approval is not necessary. This test is used for clinicalpurposes. It should not be regarded as investigational or research. B. pertussis DNA ROBERT+probe Ql (Unsp spec) Negative Normal [facility] Work Phone: Rapid Strep Test, Office ([phone])Ordered By: Jennifer Guevara on 10-22-2009 S. pyogenes Ag EIA Ql (Throat) Negative Normal [facility]; [facility] Work Phone: S. pyogenes Ag IA Ql (Unsp spec) Negative Normal [facility] Work Phone: Upper Respiratory CultureOrd ered By: Inspector Fibrous Wallboard on 10-22-2009 Bacteria identified Respiratory culture Nom (Unsp spec) Final report Normal [facility] Work Phone: Bacteria identified Respiratory culture Nom (Unsp spec) RRF Normal [facility] Work Phone: Comment on above: Routine respiratory jeny CBC, EMPLOYEEOrdered By: Mando tem Assistant Brand Manager on 08-22-2008 Erythrocyte distribution width Auto Ratio (RBC) 13.5 % Normal 11.6-14.6 [facility] Work Phone: Hematocrit Auto Volume Fraction (Bld) 38.9 % Normal 37-47 [facility] Work Phone: Hemoglobin mass conc (Bld) 13.4 g/dL Normal 12.0-16.0 [facility] Work Phone: MCH Auto Entitic mass (RBC) 29.3 pg Normal 27.0-32.0 [facility] Work Phone: MCHC Auto mass conc (RBC) 34.3 g/dL Normal 32-36 [facility] Work Phone: MCV Auto Entitic volume (RBC) 85.5 fL Normal 81-99 [facility] Work Phone: Platelet mean volume Auto Entitic volume (Bld) 8.1 fL Normal 6.5-12.0 [facility] Work Phone: Platelets Auto #/vol (Bld) 243 10*3/uL Normal 150-450 [facility] Work Phone: RBC Auto #/vol (Bld) 4.56 {M/mm3} Normal 4.2-5.4 Co mprehensive [facility] Work Phone: WBC Auto #/vol (Bld) 6.3 10*3/uL Normal 4.4-11.0 Com prehensive [facility] Work Phone: EMP PROFOrdered By: Magda velasquez on 08-22-2008 Albumin mass conc 3.4 g/dL Normal 3.4-5.0 Compreh ensive [facility] Work Phone: Albumin/Globulin mass ratio 0.9 {RATIO} Normal 0.9-2.4 [facility] Work Phone: ALP enzyme act/vol 89 U/L Normal 50-136 [facility] Work Phone: AST enzyme act/vol 33 U/L Normal 15-37 Compre [facility] Internal Medicine Work Phone: Bilirubin mass conc 0.11 mg/dL Normal 0.00-1.00 Compr ensive Internal Medicine Work Phone: Calcium mass conc 9.0 mg/dL Normal 8.5-10.1 Compreh ensive Internal Medicine Work Phone: Cholesterol in HDL mass conc 36 mg/dL Normal [facility] Work Phone: Comment on above: Reference Range HDL <40 mg/dL Low HDL Cholesterol HDL >or= 60 mg/dL High HDL Cholesterol Cholesterol in LDL mass conc 127 mg/dL Normal 0-130 [facility] Work Phone: Cholesterol in VLDL mass conc 28 mg/dL Normal 5-40 [facility] Work Phone: Cholesterol mass conc 191 mg/dL Normal Com prehensive Internal Medicine Work Phone: Comment on above: <200 mg/dL Desirable 200-240 mg/dL Borderline >240 mg/dL High Risk Creatinine mass conc 0.8 mg/dL Normal 0.6-1.0 Comp rehensive Internal Medicine Work Phone: GFR/1.73 sq M predicted among blacks MDRD vol rate/area (S/P/Bld) 113 mL/min/{1.73_m2} Normal Comprehensi ve Internal Medicine Work Phone: Comment on above: ESTIMATED GLOMERULAR FILTRATION RATE The National Kidney Foundation (NKF) guidelines forChronic kidney disease (CKD) recommends all laboratoriesestimate the level of glomerular filtration rate (GFR)in patients from age 18 - 70 years of age.The eGFR for patient's is the eGFRmultiplied by 1.212. [facility] Laboratory uses the abbreviated Modification of Diet inRenal Disease (MDRD) study equation to calculate the eGFR.The Estimated GFR equation is not applicable for patients<18 years of age or patients >70 years of age.The following conditions may alter the eGFR calculationresult: extremes in body size, severe malnutrition orobesity, skeletal muscle disease, paraplegia, quadriplegia,vegetarian diet, , certain drug therapy and rapidlychanging kidney function. Association of GFR and Staging of Kidney Disease*GFR (mL/min) With Kidney Disease W/O Kidney Disease>/= 90 Stage One Tqwrmf89 - 89 Stage Two Suspect Decreased GFR30 - 59 Stage Three Stage Three15 - 29 Stage Four Stage Four< 15 or Dialysis Stage Five Stage Five *Each stage assumes the associated GFR level has been ineffect for at least three months.Additional studies & clinical assessments are indicated toconclude diagnosis of Chronic Kidney Disease (CKD). GFR/1.73 sq M.predicted MDRD vol rate/area 93 mL/min/{1.73_m2} Normal Comprehensiv e Internal Medicine Work Phone: Globulin Calculated mass conc (S) 3.9 g/dL Normal 2.7-4.2 [facility] Work Phone: Glucose mass conc 94 mg/dL Normal 70-110 Compreh ensive Internal Medicine Work Phone: LDH enzyme act/vol 165 U/L Normal 100-190 Compre hensive Internal Medicine Work Phone: Protein mass conc 7.3 g/dL Normal 6.4-8.2 Compreh ensive Internal Medicine Work Phone: Triglyceride mass conc 139 mg/dL Normal Co mprehensive Internal Medicine Work Phone: Comment on above: Serum Triglycerides Reference Interval Normal <150 mg/dL Borderline high 150 - 199 mg/dL High 200 - 499 mg/dL Very High > or = 500 mg/dL Urea nitrogen mass conc 12 mg/dL Normal 7-18 [facility] Work Phone: Urea nitrogen/Creatinine mass ratio 15.0 {RATIO} Normal 10-20 [facility] Work Phone: EMP PROF 4.0 mg/dL Normal 2.6-6.0 [facility] Work Phone: EMP PROF 3.6 mg/dL Normal 2.5-4.9 [facility] Work Phone: EMP URINALYSISOrdered By: Arvind stem Assistant Brand Manager on 08-22-2008 Protein mass conc SeeNote Normal Compreh ensive Internal Medicine Work Phone: Comment on above: Result: NEGATIVE EMP URINALYSIS 0.2 EU/dl Normal 0.2 - 1.0 Comprehens [facility] Internal Medicine Work Phone: EMP URINALYSIS SeeNote Normal Comprehens [facility]lemente Internal Medicine Work Phone: Comment on above: Result: NEGATIVE EMP URINALYSIS YELLOW Normal Comprehens [facility] Internal Medicine Work Phone: EMP URINALYSIS CLEAR Normal Comprehens [facility]e Internal Medicine Work Phone: EMP URINALYSIS 1.025 1 Normal 1.002-1.03 0 [facility] Work Phone: EMP URINALYSIS 6.0 1 Normal 5.0-8.0 Comprehens [facility] Internal Medicine Work Phone: BLOOD TYPE PTOrdered By: Mando tem Assistant Brand Manager on 05-11-2007 ABO and Rh group Nom (Bld) A POSITIVE Normal [facility] Work Phone: CBCDOrdered By: System Manag er on 05-11-2007 Basophils/100 WBC Auto (Bld) 0.1 % Normal 0-1 [facility] Work Phone: Eosinophils/100 WBC Auto (Bld) 0.7 % Normal 0-5 [facility] Work Phone: Erythrocyte distribution width Auto Ratio (RBC) 12.7 % Normal 11.6-14.6 [facility] Work Phone: Hematocrit Auto Volume Fraction (Bld) 38.9 % Normal 37-47 [facility] Work Phone: Hemoglobin mass conc (Bld) 13.4 g/dL Normal 12.0-16.0 [facility] Work Phone: Lymphocytes/100 WBC Auto (Bld) 14.3 % Abnormal 19-41 [facility] Work Phone: MCH Auto Entitic mass (RBC) 29.6 pg Normal 27.0-32.0 [facility] Work Phone: MCHC Auto mass conc (RBC) 34.5 g/dL Normal 32-36 [facility] Work Phone: MCV Auto Entitic volume (RBC) 85.6 fL Normal 81-99 [facility] Work Phone: Monocytes/100 WBC Auto (Bld) 5.5 % Normal 0-10 [facility] Internal Medicine Work Phone: Neutrophils/100 WBC Auto (Bld) 79.4 % Abnormal 47-70 [facility] Internal Medicine Work Phone: Platelet mean volume Auto Entitic volume (Bld) 8.6 fL Normal 6.5-12.0 [facility] Internal Medicine Work Phone: Platelets Auto #/vol (Bld) 282 10*3/uL Normal 150-450 [facility] Work Phone: RBC Auto #/vol (Bld) 4.55 {M/mm3} Normal 4.2-5.4 Co [facility] Internal Medicine Work Phone: WBC Auto #/vol (Bld) 11.6 10*3/uL Abnormal 4.4-11.0 [facility] Internal Medicine Work Phone: HBsAg [id number] By: Inspector Fibrous Wallboard on 05-11-2007 HBsAg [id number] SeeNote Normal [facility] Work Phone: Comment on above: Result: Negative Per formed At: [facility] [id number] [place], [place] [id number] RUBELLA 6197Ordered By: MobiKwik em Assistant Brand Manager on 05-11-2007 RUBELLA 6197 89 {IU/mL} Normal Comprehensiv e Internal Medicine Work Phone: Comment on above: Non-immune <5 Equivo geri 5 - 9 Immune >9 ADAMA-D [id number] By: MobiKwik em Assistant Brand Manager on 01-31-2007 Nuclear Ab Ql (S) 20 U/mL Normal 0-99 Compreh ensive Internal Medicine Work Phone: Comment on above: Negative <100 Equivo geri 100 - 120 Positive >120 ANCA [id number] By: ESILLAGE m Assistant Brand Manager on 01-31-2007 ANCA 111606 <1:20 Normal [facility] Work Phone: Comment on above: The atypical pANCA p attern has been observed in asignificant percentage of patients with ulcerative colitis,primary sclerosing cholangitis and autoimmune hepatitis. The presence of posi tive fluorescence exhibiting P-ANCA orC-ANCA patterns alone is not specific for the diagnosis ofWegener's Granulomatosis (WG) or microscopic polyangiitis.Decisions about treatment should not be used solely on ANCAIFA results. The International ANCA Group Consensusrecommends follow up testing of positive sera with both MO-3 and MPO-ANCA enzyme immunoassays. As many as 5% serumsamples are positive only by EIA. Ref. AM J Clin Ryyzdn4537;111:507-513. ASO 6031Ordered By: System M eva on 01-31-2007 ASO 6031 69.6 {IU/mL} Normal 0.0-200.0 Comprehensiv e Internal Medicine Work Phone: CBCOrdered By: System Manage r on 01-31-2007 Erythrocyte distribution width Auto Ratio (RBC) 13.1 % Normal 11.6-14.6 [facility] Work Phone: Hematocrit Auto Volume Fraction (Bld) 38.2 % Normal 37-47 [facility] Work Phone: Hemoglobin mass conc (Bld) 13.2 g/dL Normal 12.0-16.0 [facility] Internal Medicine Work Phone: MCH Auto Entitic mass (RBC) 28.5 pg Normal 27.0-32.0 [facility] Internal Medicine Work Phone: MCHC Auto mass conc (RBC) 34.5 g/dL Normal 32-36 [facility] Internal Medicine Work Phone: MCV Auto Entitic volume (RBC) 82.7 fL Normal 81-99 [facility] Work Phone: Platelets Auto #/vol (Bld) 231 10*3/uL Normal 150-450 [facility] Internal Medicine Work Phone: RBC Auto #/vol (Bld) 4.62 {M/mm3} Normal 4.2-5.4 [facility] Work Phone: WBC Auto #/vol (Bld) 3.9 10*3/uL Abnormal 4.4-11.0 [facility] Phone: COMP CH50 1941Ordered By: Sy stem Assistant Brand Manager on 01-31-2007 COMP CH50 1941 48 U/mL Normal 22-60 [facility]prehens [facility] Internal Medicine Work Phone: COMP METABOLICOrdered By: Sy stem Assistant Brand Manager on 01-31-2007 Albumin mass conc 3.8 g/dL Normal 3.4-5.0 Compreh ensive Internal Medicine Work Phone: Albumin/Globulin mass ratio 1.1 {RATIO} Normal 0.9-2.4 [facility] Internal Medicine Work Phone: ALP enzyme act/vol 81 U/L [facility] Work Phone: ALT enzyme act/vol 36 [iU]/L Normal 30-[facility] Work Phone: Anion gap 3 molar conc 9 mmol/L Normal 5-15 [facility] Work Phone: AST enzyme act/vol 37 U/L Normal 15-37 Compre hensive Internal Medicine Work Phone: Bilirubin mass conc 0.33 mg/dL Normal 0.00-1.00 Compr ehensive Internal Medicine Work Phone: Calcium mass conc 8.7 mg/dL Normal 8.5-10.1 Compreh ensive Internal Medicine Work Phone: Chloride molar conc 103 mmol/L Normal 98-107 Compr ehensive Internal Medicine Work Phone: CO2 molar conc 25.3 mmol/L Normal 22.0-29.0 Comprehen sive Internal Medicine Work Phone: Creatinine mass conc 0.7 mg/dL Normal 0.6-1.0 Comp rehensive Internal Medicine Work Phone: Globulin Calculated mass conc (S) 3.4 g/dL Normal 2.3-3.5 [facility] Work Phone: Glucose mass conc 91 mg/dL Normal 70-110 Compreh ensive Internal Medicine Work Phone: Potassium molar conc 3.9 mmol/L Normal 3.5-5.1 [facility] Work Phone: Protein mass conc 7.2 g/dL Normal 6.4-8.2 Compreh ensive Internal Medicine Work Phone: Sodium molar conc 137 mmol/L Normal 136-145 Compreh ensive Internal Medicine Work Phone: Urea nitrogen mass conc 8 mg/dL Normal 7-18 [facility] Work Phone: Urea nitrogen/Creatinine mass ratio 11.4 {RATIO} Normal 10-20 [facility] Work Phone: CRYOGLOB [id number] By: Mando tem Assistant Brand Manager on 01-31-2007 CRYOGLOB 1594 Comment Normal Comprehensi ve Internal Medicine Work Phone: Comment on above: None Detected at 72 hours ESROrdered By: System Manage r on 01-31-2007 ESR Velocity (Bld) 19 mm/h Normal 0-20 Compre [facility] Internal Medicine Work Phone: HBsAg [id number] By: Inspector Fibrous Wallboard on 01-31-2007 HBsAg 6510 SeeNote Normal [facility] Work Phone: Comment on above: Result: Negative Per formed At: [facility] [id number] [place], [place] [id number] RA LATEX 6502Ordered By: Arvinds tem Assistant Brand Manager on 01-31-2007 RA LATEX 6502 4.6 {IU/mL} Normal 0.0-13.9 [facility]prehens [facility] Internal Medicine Work Phone: dsDNA [place] [id number] By: Sy stem Assistant Brand Manager on 01-31-[place] [address] 7 U/mL Normal 0-99 [facility]prehens [facility] Internal Medicine Work Phone: Comment on above: Negative <100 Equivo geri 100 - 120 Positive >120 SCOLIOSIS,STANDING ONLYOrder ed By: Inspector Fibrous Wallboard on 12-31-2006 SCOLIOSIS,STANDING ONLY See Note Normal [facility] Work Phone: Comment on above: Exam Number: [id number] SCOLIOSIS SCREEN HISTORYBack pain. History of scoliosis. TECHNIQUEStanding AP views of the thoracic and lumbar spine were obtained. FINDINGSThere is curvature of the lumbar spine to the right. The degree ofcurvature is estimated at 32 degrees. There is curvature of the upperlumbar spine to the left measured at 15 degrees. Reported By: ADELA STEVEN M.D. CBCOrdered By: System Manage r on 11-21-2006 Erythrocyte distribution width Auto Ratio (RBC) 13.2 % Normal 11.6-14.6 [facility] Work Phone: Hematocrit Auto Volume Fraction (Bld) 34.7 % Abnormal 37-47 [facility] Work Phone: Hemoglobin mass conc (Bld) 11.7 g/dL Abnormal 12.0-16.0 [facility] Work Phone: MCH Auto Entitic mass (RBC) 30.0 pg Normal 27.0-32.0 [facility] Work Phone: MCHC Auto mass conc (RBC) 33.7 g/dL Normal 32-36 [facility] Work Phone: MCV Auto Entitic volume (RBC) 89.1 fL Normal 81-99 [facility] Work Phone: Platelets Auto #/vol (Bld) 274 10*3/uL Normal 150-450 [facility] Work Phone: RBC Auto #/vol (Bld) 3.89 {M/mm3} Abnormal 4.2-5.4 [facility] Internal Medicine Work Phone: WBC Auto #/vol (Bld) 5.5 10*3/uL Normal 4.4-11.0 [facility] prehensive Internal Medicine Work Phone: CBCOrdered By: System GoodChime! r on 11-06-2006 Erythrocyte distribution width Auto Ratio (RBC) 12.8 % Normal 11.6-14.6 [facility] Internal Medicine Work Phone: Hematocrit Auto Volume Fraction (Bld) 27.7 % Abnormal 37-47 [facility] Internal Medicine Work Phone: Hemoglobin mass conc (Bld) 9.6 g/dL Abnormal 12.0-16.0 [facility] Internal Medicine Work Phone: MCH Auto Entitic mass (RBC) 30.5 pg Normal 27.0-32.0 [facility] Internal Medicine Work Phone: MCHC Auto mass conc (RBC) 34.5 g/dL Normal 32-36 [facility] Internal Medicine Work Phone: MCV Auto Entitic volume (RBC) 88.4 fL Normal 81-99 [facility] Work Phone: Platelets Auto #/vol (Bld) 320 10*3/uL Normal 150-450 [facility] Internal Medicine Work Phone: RBC Auto #/vol (Bld) 3.13 {M/mm3} Abnormal 4.2-5.4 [facility] Internal Medicine Work Phone: WBC Auto #/vol (Bld) 7.2 10*3/uL Normal 4.4-11.0 [facility] Internal Medicine Work Phone: CBCOrdered By: System GoodChime! r on 10-30-2006 Erythrocyte distribution width Auto Ratio (RBC) 12.6 % Normal 11.6-14.6 [facility] Internal Medicine Work Phone: Hematocrit Auto Volume Fraction (Bld) 22.6 % Abnormal 37-47 [facility] Internal Medicine Work Phone: Hemoglobin mass conc (Bld) 7.7 g/dL Abnormal 12.0-16.0 [facility] Internal Medicine Work Phone: MCH Auto Entitic mass (RBC) 30.0 pg Normal 27.0-32.0 [facility] Internal Medicine Work Phone: MCHC Auto mass conc (RBC) 34.2 g/dL Normal 32-36 [facility] Internal Medicine Work Phone: MCV Auto Entitic volume (RBC) 87.8 fL Normal 81-99 [facility] Internal Medicine Work Phone: Platelets Auto #/vol (Bld) 274 10*3/uL Normal 150-450 [facility] Internal Medicine Work Phone: RBC Auto #/vol (Bld) 2.58 {M/mm3} Abnormal 4.2-5.4 [facility] Internal Medicine Work Phone: WBC Auto #/vol (Bld) 10.7 10*3/uL Normal 4.4-11.0 [facility] Internal Medicine Work Phone: FACVL [id number] By: Syst em Assistant Brand Manager on 10-30-2006 FACVL [id number] Comment Normal Comprehensiv e Internal Medicine Work Phone: Comment on above: Genetic counselors a re available for health care providersto discuss results at [phone]. .Methodology:DNA analysis of the Factor V gene was performed by allele-specific PCR followed by gel electrophoresis. The diagnosticsensitivity and specificity is >99% for both. Molecular-based testing is highly accurate, but as in any laboratorytest, diagnostic errors may occur. All test results must becombined with clinical information for the most accurateinterpretation. .References:Krista Early (1996). Clin Lab Med 16:169-186. .Mariano Peng, Ph.D.Lisa Muir, Ph.D.Stacia Hilton, Ph.D.Sonia Torres, Ph.D.Cristian Marino, Ph.D.Sarah Eugene, Ph.D.Layla De Jesus, Ph.D.Performed At: [facility] [id number] [place], [place] [id number] Result: Negative (no mutation found) .Factor V Leiden is a specific mutation ([id number]) in the factorV gene that is associated with an increased risk of venousthrombosis. Factor V Leiden is more resistant toinactivation by activated protein C. As a result, factor Vpersists in the circulation leading to a mild hyper-coagulable state. The Leiden mutation accounts for 90% -95% of APC resistance. Factor V Leiden has been reported inpatients with deep vein thrombosis, pulmonary embolus,central retinal vein occlusion, cerebral sinus thrombosisand hepatic vein thrombosis. Other risk factors to beconsidered in the workup for venous thrombosis include [id number] mutation in the factor II (prothrombin) gene,protein S and C deficiency, and antithrombin deficiencies.Anticardiolipin antibody and lupus anticoagulant analysismay be appropriate for certain patients, as well ashomocysteine levels. .Contact your local [facility] for information on how to orderadditional testing if desired. HHOrdered By: Inspector Fibrous Wallboard on 10-30-2006 Hematocrit Auto Volume Fraction (Bld) 24.9 % Abnormal 37-47 [facility] Work Phone: Hemoglobin mass conc (Bld) 8.6 g/dL Abnormal 12.0-16.0 [facility] Work Phone: BLOOD TYPE PTOrdered By: Mando tem Assistant Brand Manager on 10-29-2006 ABO and Rh group Nom (Bld) A POSITIVE Normal [facility] Work Phone: CBCOrdered By: System Manage r on 10-29-2006 Erythrocyte distribution width Auto Ratio (RBC) 12.7 % Normal 11.6-14.6 [facility] Work Phone: Hematocrit Auto Volume Fraction (Bld) 34.3 % Abnormal 37-47 [facility] Work Phone: Hemoglobin mass conc (Bld) 11.8 g/dL Abnormal 12.0-16.0 [facility] Work Phone: MCH Auto Entitic mass (RBC) 30.4 pg Normal 27.0-32.0 [facility] Work Phone: MCHC Auto mass conc (RBC) 34.4 g/dL Normal 32-36 [facility] Internal Medicine Work Phone: MCV Auto Entitic volume (RBC) 88.3 fL Normal 81-99 [facility] Work Phone: Platelets Auto #/vol (Bld) 398 10*3/uL Normal 150-450 [facility] Work Phone: RBC Auto #/vol (Bld) 3.88 {M/mm3} Abnormal 4.2-5.4 [facility] Phone: WBC Auto #/vol (Bld) 8.4 10*3/uL Normal 4.4-11.0 Com prehensive Internal Medicine Work Phone: PRO TIMEOrdered By: Magda velasquez on 10-29-2006 INR Coag RelTime (PPP) 1.0 {INR} Normal Co [facility] Internal Medicine Work Phone: Prothrombin time (PT) Coag time (PPP) 12.7 s Normal 11.7-13.3 [facility] Internal Medicine Work Phone: PROD CONCOrdered By: Inspector Fibrous Wallboard on 10-29-2006 PROD CONC Normal [facility] Internal Medicine Work Phone: Comment on above: OPERATION Dilation a nd curettage, suction PRE-OPERATIVE DIAGNOSIS Delayed post- hemorrhage POST-OPERATIVE DIAGNOSIS Same TISSUE SUBMITTED Retained products of conception/ Endometrial curettings MICROSCOPIC DIAGNOSIS Endometrium, curettage: Chorionic villi, decidualized stroma, and trophoblastic cells consistent with retained products of conception. AM:collin 10/31/06 GROSS DESCRIPTION Received in formalin labeled with patient name and number and designated Endometrial curettings and products of conception are multiple fragments of pink-red soft tissue measuring in aggregate 5 x 5 x 1.5 cm. The specimen is totally submitted in two cassettes. /SJ:collin 10/30/06 TC:5 REPORT SIGNED: JUDY ARAGON 10/31/06 PTTOrdered By: System Manage r on 10-29-2006 aPTT Coag time (Bld) 31.5 s Normal 24.6-36.6 Comp [facility] Internal Medicine Work Phone: CH/GC DNA [id number] By: S ystem Assistant Brand Manager on 10-26-2006 Protein mass conc SeeNote Normal Compreh ensive Internal Medicine Work Phone: Comment on above: Result: Negative Lyubov t valid for male urethral and female endocervicalspecimens only.Performed At: [facility] [place], [place] [id number] CH/GC DNA [id number] SeeNote Normal Comprehen [facility] Internal Medicine Work Phone: Comment on above: Result: Negative BLOOD TYPE PTOrdered By: Sysofia tem Assistant Brand Manager on 10-17-2006 ABO and Rh group Nom (Bld) A POSITIVE Normal [facility] Work Phone: CBCOrdered By: System Manage r on 10-17-2006 Erythrocyte distribution width Auto Ratio (RBC) 13.2 % Normal 11.6-14.6 [facility] Work Phone: Hematocrit Auto Volume Fraction (Bld) 38.1 % Normal 37-47 [facility] Work Phone: Hemoglobin mass conc (Bld) 13.3 g/dL Normal 12.0-16.0 [facility] Work Phone: MCH Auto Entitic mass (RBC) 31.1 pg Normal 27.0-32.0 [facility] Work Phone: MCHC Auto mass conc (RBC) 35.0 g/dL Normal 32-36 [facility] Work Phone: MCV Auto Entitic volume (RBC) 89.0 fL Normal 81-99 [facility] Work Phone: Platelets Auto #/vol (Bld) 228 10*3/uL Normal 150-450 [facility] Work Phone: RBC Auto #/vol (Bld) 4.28 {M/mm3} Normal 4.2-5.4 [facility] Work Phone: WBC Auto #/vol (Bld) 13.6 10*3/uL Abnormal 4.4-11.0 [facility] Work Phone: TWIN PLACOrdered By: Inspector Fibrous Wallboard on 10-17-2006 TWIN PLAC Normal [facility] Work Phone: Comment on above: OPERATION Twin place nta PRE-OPERATIVE DIAGNOSIS Twin demise TISSUE SUBMITTED Twin placenta, B marked w/ suture MICROSCOPIC DIAGNOSIS Twin placenta: Dichorionic and diamniotic twin placenta. Placenta A: Placental disc: Immature placenta (106 gms). Membranes: No pathologic diagnosis. Umbilical cord: Three blood vessels, no pathologic diagnosis. Placenta B: Placental disc: Immature placenta (108 gms). Membranes: Acute chorioamnionitis and focal blood clot. Umbilical cord: Three blood vessels, no pathologic diagnosis. SJ: 10/19/06 COMMENT Blood clot is noted in the container weighing 21 gm and placenta B show blood clot in the membranes. Placental surfaces of the both placentas are disrupted. The findings may represent clinical impression of placental abruption. This case has been reviewed in consultation with Dr. Aragon who concurs with the above diagnosis. IDC:AM GROSS DESCRIPTION Received in formalin labeled with patient name and number and designated twin placenta is a twin placenta with two separate placental discs, two membranous sacs and two umbilical cords. Placenta B is identified by a suture. Placenta A membranes are burrows-pollock, soft, and ruptured 2 cm from the free edge of the body of the placenta and inserted marginally. The umbilical cord of placenta A is attached centrally. Only a small portion of umbilical cord is attached measuring 0.5 cm in length. A detached segment of umbilical cord is noted in the container, most likely umbilical cord from placenta A measuring 15 cm in length. Sections reveal three blood vessels. The body of the placenta without umbilical cord and membranes weighs 106 gms and measures 11 x 8 x 2.5 cm. The surface is burrows-pollock and without any mass lesions. The maternal surface is disrupted. Sections do not reveal any mass lesions. The membranes of placenta B are partly fragmented, burrows-pollock and show a clot measuring 6 x 3 x 1.5 cm. The centrally attached umbilical cord measures 19 cm in length. Sections reveal three blood vessels. The body of the placenta without umbilical cord and membranes weighs 108 gms and measures 10 x 8.5 x 2.5 cm. The surface is burrows-pollock and without any mass lesions. The maternal surface is partly disrupted. Also present in the container is a detached fragment of burrows-pollock membrane and a blood clot measuring 10 x 5 x 1.5 cm and weighing 21 gms. No dividing membranous septum is identified in the specimen or the container. Matrix Inspector sections are submitted in 11 cassettes as follows: 1-5 - placenta A (1 - membrane roll, 2 - umbilical cord maternal end, 3 - umbilical cord end, 4 & 5 - body of the placenta including maternal and surface), and 6-11 - placenta B (6 - membrane roll, 7 - umbilical cord maternal end, 8 - umbilical cord end, 9 & 10 - body of the placenta including maternal and surface), 11 - blood clot within the membrane. / SJ:omar 10/18/06 TC:2 REPORT SIGNED: NANCY GUERRA 10/19/06 AFP TETRA [id number] By: Sofia sandersonte Assistant Brand Manager on 09-12-[address] [place] [address] m[IU]/mL Normal [facility]prehens [facility] Work Phone: AFP TETRA [id number] Twins Normal Comprehen [facility] Work Phone: AFP TETRA [phone] 1 Normal [facility] Work Phone: AFP TETRA [id number] SeeNote Normal Comprehen [facility] Work Phone: Comment on above: Result: Result: See interpre tation. Result: *Screen Nega tive* Result: As provided AFP TETRA [id number] 1:4128 Normal [facility]pre[facility] Work Phone: AFP TETRA 52187 2.59 1 Normal [facility] Work Phone: AFP TETRA 40187 202.72 pg/mL Normal Compreh ensive [facility] Work Phone: AFP TETRA [phone] 1 Normal [facility] Work Phone: AFP TETRA [phone] [phone] 1 Normal [facility]pre[facility] Work Phone: AFP TETRA [id number] 1.94 1 Normal [facility]pre[facility] Work Phone: AFP TETRA [id number] 17.0 {WEEKS} Normal Compreh ensive [facility] Work Phone: AFP TETRA [phone] 1.60 1 Normal [facility]pre[facility] Work Phone: AFP TETRA 88980 7.70 ng/mL Normal [facility]pre[facility] Work Phone: AFP TETRA 17913 61.6 ng/mL Normal [facility]pre[facility] Work Phone: AFP TETRA [phone] No Normal [facility] Work Phone: AFP TETRA 56419 1.27 1 Normal [facility] Work Phone: AFP TETRA [phone] Comment Normal Comprehen [facility] Work Phone: Comment on above: Claire logan, Ph.D., [facility] Genetics Physical Therapy Attendant .References: Available Upon Request. .Multiples Of Median Cutoffs Abbreviation Definitions For AFP Elevations IDD- Insulin Dep DiabetesSingleton 2.5 Black 2.8 OSBR- Open Spina BifidaIDD 2.0 Twins 4.5 RiskDSR Cutoff 1:270 DSR- Down Syndrome RiskT18 Cutoff 1:100 T18- Trisomy 18 .Down Syndrome and Trisomy 18 screening are consideredInvestigational .For further inquiries contact [employer] [phone].Performed At: [employer] [id number] [facility], [place] [id number] Interpretation: Scre en NegativeThis result is screen negative for OSB and DownSyndrome. Trisomy 18 risks cannot be determined for twinpregnancies. The AFP MoM and patient specific risks arecalculated based on gestational age and the clinicalinformation provided. Screening efficiency is diminished intwin pregnancies. This test identifies up to 48% of openneural tube defects. Closed neural tube defects and someopen defects may not be detected by this test. The detec-tion rate of Down Syndrome for twin pregnancies hasnot been determined for four markers, but is at least 50%based on triple screen data. The [employer] [employer] recommends amniocentesis beoffered to women age 35 and older.Recalculations are not recommended when gestational datingby LMP and ultrasound are within 10 days. AFP TETRA 15987 24.3 {YEARS} Normal Compreh ensive [facility] Work Phone: CULTURE, URINEOrdered By: Sy stem Assistant Brand Manager on 08-03-2006 Bacteria identified Cx Nom (U) See Note Normal [facility] Work Phone: Comment on above: Possible Lactobacill us species. COLONY COUNT 80,000-100,000 ORGANISM 1: GRAM POSITIVE HE BLOOD TYPE PTOrdered By: Sys tem Assistant Brand Manager on 07-04-2006 ABO and Rh group Nom (Bld) A POSITIVE Normal [facility] Work Phone: CBCDOrdered By: System Manag er on 07-04-2006 Basophils/100 WBC Auto (Bld) 0.1 % Normal 0-1 [facility] Work Phone: Eosinophils/100 WBC Auto (Bld) 0.4 % Normal 0-5 [facility] Work Phone: Erythrocyte distribution width Auto Ratio (RBC) 12.3 % Normal 11.6-14.6 [facility] Work Phone: Hematocrit Auto Volume Fraction (Bld) 37.8 % Normal 37-47 [facility] Work Phone: Hemoglobin mass conc (Bld) 13.2 g/dL Normal 12.0-16.0 [facility] Work Phone: Lymphocytes/100 WBC Auto (Bld) 17.0 % Abnormal 19-41 [facility] Work Phone: MCH Auto Entitic mass (RBC) 30.2 pg Normal 27.0-32.0 [facility] Work Phone: MCHC Auto mass conc (RBC) 35.0 g/dL Normal 32-36 [facility] Work Phone: MCV Auto Entitic volume (RBC) 86.4 fL Normal 81-99 [facility] Work Phone: Monocytes/100 WBC Auto (Bld) 6.2 % Normal 0-10 [facility] Work Phone: Neutrophils/100 WBC Auto (Bld) 76.3 % Abnormal 47-70 [facility] Work Phone: Platelet mean volume Auto Entitic volume (Bld) 8.5 fL Normal 6.5-12.0 [facility] Work Phone: Platelets Auto #/vol (Bld) 252 10*3/uL Normal 150-450 [facility] Work Phone: RBC Auto #/vol (Bld) 4.38 {M/mm3} Normal 4.2-5.4 Co mprehensive [facility] Work Phone: WBC Auto #/vol (Bld) 8.6 10*3/uL Normal 4.4-11.0 Com prehensive Internal Medicine Work Phone: CF PROF [id number] By: Neptune.io stem Assistant Brand Manager on 07-04-2006 CF PROF [id number] . Normal [facility]prehens [facility] Work Phone: Comment on above: MOLECULAR ANALYSIS R EPORT HAS BEEN MAILED CULTURE, URINEOrdered By: Neptune.io stem Assistant Brand Manager on 07-04-2006 Bacteria identified Cx Nom (U) See Note Normal [facility] Work Phone: Comment on above: COLONY COUNT 50,000- 80,000 ORGANISM 1: MIXED GRAM POSITIVE ORGANISMS HBsAg [id number] By: Inspector Fibrous Wallboard on 07-04-2006 HBsAg 6510 SeeNote Normal [facility] Work Phone: Comment on above: Result: NEGATIVE NEG ATIVE Result: NONREACTIVE Result: NON REACTIVE NON REACTIVE RUBELLA [id number] By: Syst em Assistant Brand Manager on 07-04-2006 RUBELLA [id number] 88 1 Normal Comprehensiv e Internal Medicine Work Phone: Comment on above: Rubella antibodies, IgG 88 IU/ML Non-immune <5 Equivocal 5 - 10 Immune >10 VIAB [id number] By: Inspector Fibrous Wallboard on 07-04-2006 VIAB [id number] < 1.00 Normal [facility] Work Phone: Comment on above: <1.00 Vital Signs Date Time Vital Sign Value Performing Clinician Facility 04-28-2023 09:10-0400 Body height 166.37 cm [facility]; [facility] Work Phone: 04-28-2023 09:10-0400 Body mass index (BMI) [Ratio] 36.4 kg/m2 [facility]; [facility] Work Phone: 04-28-2023 09:10-0400 Body surface area Derived from formula 2.08 m2 [facility]; [facility] Work Phone: 04-28-2023 09:10-0400 Body temperature 97.2 [degF] [facility]; [facility] Work Phone: 04-28-2023 09:10-0400 Body weight 100.76 kg [facility]; [facility] Work Phone: 04-28-2023 09:10-0400 Diastolic blood pressure 72 mm[Hg] [facility]; [facility] Work Phone: Comment on above: Patient Position: Sitting; Cuff Location : Left Arm; Cuff Size: Standard 04-28-2023 09:10-0400 Heart rate 95 /min [facility]; [facility] Work Phone: Comment on above: Pattern: Regular 04-28-2023 09:10-0400 Respiratory rate 16 /min [facility]; [facility] Work Phone: Comment on above: Pattern: Unlabored 04-28-2023 09:10-0400 SaO2% (BldA) [Mass fraction] 97 % [facility]; [facility] Work Phone: Comment on above: Room air 04-28-2023 09:10-0400 Systolic blood pressure 120 mm[Hg] [facility]; [facility] Work Phone: Comment on above: Patient Position: Sitting; Cuff Location : Left Arm; Cuff Size: Standard 02-27-2023 16:13-0400 Body height 166.37 cm [facility]; [facility] Work Phone: 02-27-2023 16:13-0400 Body mass index (BMI) [Ratio] 35.56 kg/m2 [facility]; [facility] Work Phone: 07-17-2023 16:13-0400 Body surface area Derived from formula 2.06 m2 Yareli Cleary LPN [facility]; [facility] Work Phone: 02-27-2023 16:13-0400 Body temperature 97.4 [degF] Yareli Tamezrb DYNO TECHNICIAN [facility]; [facility] Work Phone: Comment on above: Method: Temporal 02-27-2023 16:13-0400 Body weight 98.43 kg Yareli Tamezrb DYNO TECHNICIAN [facility]; [facility] Work Phone: 02-27-2023 16:13-0400 Diastolic blood pressure 80 mm[Hg] Yareli Slarb DYNO TECHNICIAN [facility]; [facility] Work Phone: Comment on above: Patient Position: Sitting; Cuff Location : Left Arm; Cuff Size: Standard 02-27-2023 16:13-0400 Heart rate 103 /min Yareli Joirb DYNO TECHNICIAN [facility]; [facility] Work Phone: Comment on above: Pattern: Regular 02-27-2023 16:13-0400 Respiratory rate 15 /min Yareli Tamezrb DYNO TECHNICIAN [facility]; [facility] Work Phone: Comment on above: Pattern: Unlabored 02-27-2023 16:13-0400 SaO2% (BldA) [Mass fraction] 98 % Yareli Joirb DYNO TECHNICIAN [facility]; [facility] Work Phone: Comment on above: Room air 02-27-2023 16:13-0400 Systolic blood pressure 126 mm[Hg] Yareli Tamezrb DYNO TECHNICIAN [facility]; [facility] Work Phone: Comment on above: Patient Position: Sitting; Cuff Location : Left Arm; Cuff Size: Standard 01-30-2023 09:46-0400 Body height 166.37 cm [facility]; [facility] Work Phone: 01-30-2023 09:46-0400 Body mass index (BMI) [Ratio] 35.89 kg/m2 [facility]; [facility] Work Phone: 01-30-2023 09:46-0400 Body surface area Derived from formula 2.07 m2 [facility]; [facility] Work Phone: 01-30-2023 09:46-0400 Body temperature 97.9 [degF] [facility]; [facility] Work Phone: 01-30-2023 09:46-0400 Body weight 99.34 kg [facility]; [facility] Work Phone: 01-30-2023 09:46-0400 Diastolic blood pressure 78 mm[Hg] [facility]; [facility] Work Phone: Comment on above: Patient Position: Sitting; Cuff Location : Left Arm; Cuff Size: Standard 01-30-2023 09:46-0400 Heart rate 85 /min [facility]; [facility] Work Phone: Comment on above: Pattern: Regular 01-30-2023 09:46-0400 SaO2% (BldA) [Mass fraction] 98 % [facility]; [facility] Work Phone: Comment on above: Room air 01-30-2023 09:46-0400 Systolic blood pressure 130 mm[Hg] [facility]; [facility] Work Phone: Comment on above: Patient Position: Sitting; Cuff Location : Left Arm; Cuff Size: Standard 01-19-2023 09:13-0400 Body height 166.37 cm Rachel oL DO Work Phone: [facility]; [facility] Work Phone: Comment on above: partial vitals due pt requested a visit through telemedicine. withthe covid19 pandemic we are not bringing patients in the office. only those that need evaluations in person. Pt. is aware that the telemedicine available in this crisis time is not HIPPA secure and encrypted and give verbal agreement to proceed. 01-19-2023 09:13-0400 Body mass index (BMI) [Ratio] 36.03 kg/m2 Rachel Lo DO Work Phone: [facility]; [facility] Work Phone: Comment on above: partial vitals due pt requested a visit through telemedicine. withthe covid19 pandemic we are not bringing patients in the office. only those that need evaluations in person. Pt. is aware that the telemedicine available in this crisis time is not HIPPA secure and encrypted and give verbal agreement to proceed. 01-19-2023 09:130400 Body surface area Derived from formula 2.07 m2 Rachel Lo DO Work Phone: [facility]; [facility] Work Phone: Comment on above: partial vitals due pt requested a visit through telemedicine. withthe covid19 pandemic we are not bringing patients in the office. only those that need evaluations in person. Pt. is aware that the telemedicine available in this crisis time is not HIPPA secure and encrypted and give verbal agreement to proceed. 01-19-2023 09:130400 Body weight 99.72 kg Rachel Lo DO Work Phone: [facility]; [facility] Work Phone: Comment on above: partial vitals due pt requested a visit through telemedicine. withthe covid19 pandemic we are not bringing patients in the office. only those that need evaluations in person. Pt. is aware that the telemedicine available in this crisis time is not HIPPA secure and encrypted and give verbal agreement to proceed. 01-19-2023 09:130400 Diastolic blood pressure 82 mm[Hg] Rachel Lo DO Work Phone: [facility]; [facility] Work Phone: Comment on above: Patient Position: Sitting partial vitals due p t requested a visit through telemedicine. withthe covid19 pandemic we are not bringing patients in the office. only those that need evaluations in person. Pt. is aware that the telemedicine available in this crisis time is not HIPPA secure and encrypted and give verbal agreement to proceed. 01-19-2023 09:13-0400 Heart rate 83 /min Rachel Teresita DO Work Phone: [facility]; [facility] Work Phone: Comment on above: Pattern: Regular partial vitals due p t requested a visit through telemedicine. withthe covid19 pandemic we are not bringing patients in the office. only those that need evaluations in person. Pt. is aware that the telemedicine available in this crisis time is not HIPPA secure and encrypted and give verbal agreement to proceed. 01-19-2023 09:13-0400 Systolic blood pressure 124 mm[Hg] Rachel Lo DO Work Phone: [facility]; [facility] Work Phone: Comment on above: Patient Position: Sitting partial vitals due p t requested a visit through telemedicine. withthe covid19 pandemic we are not bringing patients in the office. only those that need evaluations in person. Pt. is aware that the telemedicine available in this crisis time is not HIPPA secure and encrypted and give verbal agreement to proceed. 01-04-2023 11:55-0400 Body height 166.37 cm Yareli Slarb DYNO TECHNICIAN [facility]; [facility] Work Phone: 01-04-2023 11:55-0400 Body mass index (BMI) [Ratio] 36.42 kg/m2 Yareli Slarb DYNO TECHNICIAN [facility]; [facility] Work Phone: 01-04-2023 11:55-0400 Body surface area Derived from formula 2.08 m2 Yareli Slarb DYNO TECHNICIAN [facility]; [facility] Work Phone: 01-04-2023 11:55-0400 Body temperature 97.6 [degF] Yareli Slarb DYNO TECHNICIAN [facility]; [facility] Work Phone: Comment on above: Method: Temporal 01-04-2023 11:55-0400 Body weight 100.81 kg Yareli Slarb DYNO TECHNICIAN [facility]; [facility] Work Phone: 01-04-2023 11:55-0400 Diastolic blood pressure 82 mm[Hg] Yareli Slarb DYNO TECHNICIAN [facility]; [facility] Work Phone: Comment on above: Patient Position: Sitting; Cuff Location : Left Arm; Cuff Size: Standard 01-04-2023 11:55-0400 Heart rate 110 /min Yareli Slarb DYNO TECHNICIAN [facility]; [facility] Work Phone: Comment on above: Pattern: Regular 01-04-2023 11:55-0400 Respiratory rate 16 /min Yareli Slarb DYNO TECHNICIAN [facility]; [facility] Work Phone: Comment on above: Pattern: Unlabored 01-04-2023 11:55-0400 SaO2% (BldA) [Mass fraction] 98 % Yareli Slarb DYNO TECHNICIAN [facility]; [facility] Work Phone: Comment on above: Room air 01-04-2023 11:55-0400 Systolic blood pressure 128 mm[Hg] Yareli Slarb DYNO TECHNICIAN [facility]; [facility] Work Phone: Comment on above: Patient Position: Sitting; Cuff Location : Left Arm; Cuff Size: Standard 12-15-2022 11:27-0400 Body weight 101.72 kg Rachel Pateon DO Work Phone: [facility]; [facility] Work Phone: Comment on above: partial vitals with virtual visit 12-15-2022 11:27-0400 Diastolic blood pressure 82 mm[Hg] Rachel Teresita DO Work Phone: [facility]; [facility] Work Phone: Comment on above: Patient Position: Sitting partial vitals with virtual visit 12-15-2022 11:27-0400 Heart rate 76 /min Rachel Teresita DO Work Phone: [facility]; [facility] Work Phone: Comment on above: Pattern: Regular partial vitals with virtual visit 12-15-2022 11:27-0400 Systolic blood pressure 132 mm[Hg] Rachel Teresita DO Work Phone: [facility]; [facility] Work Phone: Comment on above: Patient Position: Sitting partial vitals with virtual visit 11-25-2022 08:56-0400 Body height 166.37 cm Yareli Slarb DYNO TECHNICIAN [facility]; [facility] Work Phone: 11-25-2022 08:56-0400 Body mass index (BMI) [Ratio] 38.06 kg/m2 Yareli Slarb DYNO TECHNICIAN [facility]; [facility] Work Phone: 11-25-2022 08:56-0400 Body surface area Derived from formula 2.12 m2 Yareli Slarb DYNO TECHNICIAN [facility]; [facility] Work Phone: 11-25-2022 08:56-0400 Body temperature 97.3 [degF] Yareli Slarb DYNO TECHNICIAN [facility]; [facility] Work Phone: Comment on above: Method: Temporal 11-25-2022 08:56-0400 Body weight 105.35 kg Yareli Slarb DYNO TECHNICIAN [facility]; [facility] Work Phone: 11-25-2022 08:56-0400 Diastolic blood pressure 82 mm[Hg] Yareli Slarb DYNO TECHNICIAN [facility]; [facility] Work Phone: Comment on above: Patient Position: Sitting; Cuff Location : Left Arm; Cuff Size: Standard 11-25-2022 08:56-0400 Heart rate 75 /min Yareli Slarb DYNO TECHNICIAN [facility]; [facility] Work Phone: Comment on above: Pattern: Regular 11-25-2022 08:56-0400 Respiratory rate 17 /min Yareli Slarb DYNO TECHNICIAN [facility]; [facility] Work Phone: Comment on above: Pattern: Unlabored 11-25-2022 08:56-0400 SaO2% (BldA) [Mass fraction] 98 % Yareli Slarb DYNO TECHNICIAN [facility]; [facility] Work Phone: Comment on above: Room air 11-25-2022 08:56-0400 Systolic blood pressure 136 mm[Hg] Yareli Slarb DYNO TECHNICIAN [facility]; [facility] Work Phone: Comment on above: Patient Position: Sitting; Cuff Location : Left Arm; Cuff Size: Standard 11-11-2022 11:10-0400 Body height 166.37 cm [facility]; [facility] Work Phone: 11-11-2022 11:10-0400 Body mass index (BMI) [Ratio] 38.06 kg/m2 [facility]; [facility] Work Phone: 11-11-2022 11:10-0400 Body surface area Derived from formula 2.12 m2 [facility]; [facility] Work Phone: 11-11-2022 11:10-0400 Body temperature 97.2 [degF] [facility]; [facility] Work Phone: 11-11-2022 11:10-0400 Body weight 105.35 kg [facility]; [facility] Work Phone: 11-11-2022 11:10-0400 Diastolic blood pressure 82 mm[Hg] [facility]; [facility] Work Phone: Comment on above: Patient Position: Sitting; Cuff Location : Left Arm; Cuff Size: Standard 11-11-2022 11:10-0400 Heart rate 82 /min [facility]; [facility] Work Phone: Comment on above: Pattern: Regular 11-11-2022 11:10-0400 Respiratory rate 16 /min [facility]; [facility] Work Phone: Comment on above: Pattern: Unlabored 11-11-2022 11:10-0400 SaO2% (BldA) [Mass fraction] 98 % [facility]; [facility] Work Phone: Comment on above: Room air 11-11-2022 11:10-0400 Systolic blood pressure 122 mm[Hg] [facility]; [facility] Work Phone: Comment on above: Patient Position: Sitting; Cuff Location : Left Arm; Cuff Size: Standard 05-09-2022 14:48-0400 Body height 166.37 cm Laisha Chin VP CARE MANAGEMENT [facility]; [facility] Work Phone: 05-09-2022 14:48-0400 Body mass index (BMI) [Ratio] 37.04 kg/m2 Laisha Chin [facility]; [facility] Work Phone: 05-09-2022 14:48-0400 Body surface area Derived from formula 2.1 m2 Laisha Chin [facility]; [facility] Work Phone: 05-09-2022 14:48-0400 Body temperature 97.3 [degF] Laisha Chin [facility]; [facility] Work Phone: Comment on above: Method: Infrared 05-09-2022 14:48-0400 Body weight 102.52 kg Laisha Chin [facility]; [facility] Work Phone: 05-09-2022 14:48-0400 Diastolic blood pressure 82 mm[Hg] Laisha Chin [facility]; [facility] Work Phone: Comment on above: Patient Position: Sitting; Cuff Location : Left Arm; Cuff Size: Standard 05-09-2022 14:48-0400 Heart rate 98 /min Laisha Chin [facility] [facility] [place] [facility]; [facility] Work Phone: Comment on above: Pattern: Regular 05-09-2022 14:48-0400 Respiratory rate 18 /min Laisha Chin [facility]; [facility] Work Phone: Comment on above: Pattern: Unlabored 05-09-2022 14:48-0400 SaO2% (BldA) [Mass fraction] 95 % Laisha Chin [facility]; [facility] Work Phone: Comment on above: Room air 05-09-2022 14:48-0400 Systolic blood pressure 138 mm[Hg] Laisha Chin [facility]; [facility] Work Phone: Comment on above: Patient Position: Sitting; Cuff Location : Left Arm; Cuff Size: Standard 08-24-2021 11:42-0500 Body height 166.37 cm Cara Arteaga [employer] TECH[employer] [facility]; [facility] Work Phone: Comment on above: reported by pt, virtual 08-24-2021 11:42-0500 Body mass index (BMI) [Ratio] 37.04 kg/m2 Cara Arteaga DYNO TECHNICIAN [facility]; [facility] Work Phone: Comment on above: reported by pt, virtual 08-24-2021 11:42-0500 Body surface area Derived from formula 2.1 m2 Cara Arteaga DYNO TECHNICIAN [facility]; [facility] Work Phone: Comment on above: reported by pt, virtual 08-24-2021 11:42-0500 Body temperature 98.7 [degF] Carabob Arteaga DYNO TECHNICIAN [facility]; [facility] Work Phone: Comment on above: reported by pt, virtual 08-24-2021 11:42-0500 Body weight 102.52 kg Cara Arteaga DYNO TECHNICIAN [facility]; [facility] Work Phone: Comment on above: reported by pt, virtual 04-27-2021 17:49-0400 Body height 165.1 cm Rachel Lo Other Phone: [facility] 04-27-2021 17:49-0400 Body temperature 98.06 [degF] Rachel Teresita Other Phone: [facility] 04-27-2021 17:49-0400 Diastolic blood pressure 86 mm[Hg] Rachel Pateon Other Phone: [facility] 04-27-2021 17:49-0400 Heart rate 106 /min Rachel Pateon Other Phone: [facility] 04-27-2021 17:49-0400 Respiratory rate 16 /min Rachel Lo Other Phone: [facility] 04-27-2021 17:49-0400 SaO2% (BldA) [Mass fraction] 98 % Rachel Lo Other Phone: [facility] 04-27-2021 17:49-0400 Systolic blood pressure 132 mm[Hg] Rachel Lo Other Phone: [facility] 04-15-2021 09:37-0400 Body height 166.37 cm Laisha Chin [facility]; [facility] Work Phone: 04-15-2021 09:37-0400 Body mass index (BMI) [Ratio] 37.04 kg/m2 Laisha Chin [facility] [place] [facility]; [facility] Work Phone: 04-15-2021 09:37-0400 Body surface area Derived from formula 2.1 m2 Laisha Chin [facility] [place]; [facility] Work Phone: 04-15-2021 09:37-0400 Body temperature 97.3 [degF] Laisha Chin [facility]; [facility] Work Phone: Comment on above: Method: Infrared 04-15-2021 09:37-0400 Body weight 102.52 kg Laisha Chin [facility] [place]; [facility] Work Phone: 04-15-2021 09:37-0400 Diastolic blood pressure 90 mm[Hg] Laisha Chin [facility]; [facility] Work Phone: Comment on above: Patient Position: Sitting; Cuff Location : Left Arm; Cuff Size: Standard 04-15-2021 09:37-0400 Heart rate 108 /min Laisha Chin [facility] [place]; [facility] Work Phone: Comment on above: Pattern: Regular 04-15-2021 09:37-0400 Respiratory rate 18 /min Laisha Chin [facility] [place] [facility]; [facility] Work Phone: Comment on above: Pattern: Unlabored 04-15-2021 09:37-0400 SaO2% (BldA) [Mass fraction] 97 % Laisha Chin [facility] [place] [facility]; [facility] Work Phone: Comment on above: Room air 04-15-2021 09:37-0400 Systolic blood pressure 123 mm[Hg] Laisha Chin [facility]; [facility] Work Phone: Comment on above: Patient Position: Sitting; Cuff Location : Left Arm; Cuff Size: Standard 09-11-2020 07:41-0500 BMI (Body Mass Index) 38.02 kg/m2 Shiraz Gray LPN [facility]; [facility] Work Phone: 09-11-2020 07:41-0500 Body weight 105.24 kg Shiraz Gray LPN [facility]; [facility] Work Phone: 09-11-2020 07:41-0500 BSA (Body Surface Area) 2.12 m2 Shiraz Gray LPN [facility]; [facility] Work Phone: 09-11-2020 07:41-0500 Height 166.37 cm Shiraz Gray LPN [facility]; [facility] Work Phone: 09-07-2020 08:56-0500 BMI (Body Mass Index) 38.02 kg/m2 Shiraz smith [facility]; [facility] Work Phone: 09-07-2020 08:56-0500 Body Temperature 97.6 [degF] Shiraz Gray LPN [facility]; [facility] Work Phone: Comment on above: Method: Infrared 09-07-2020 08:56-0500 Body weight 105.24 kg Shiraz Gray LPN [facility]; [facility] Work Phone: 09-07-2020 08:56-0500 BP Diastolic 88 mm[Hg] Shiraz Gray LPN [facility]; [facility] Work Phone: Comment on above: Patient Position: Sitting; Cuff Location : Left Arm; Cuff Size: Standard 09-07-2020 08:56-0500 BP Systolic 150 mm[Hg] Shiraz Gray LPN [facility]; [facility] Work Phone: Comment on above: Patient Position: Sitting; Cuff Location : Left Arm; Cuff Size: Standard 09-07-2020 08:56-0500 BSA (Body Surface Area) 2.12 m2 Shiraz Gray LPN [facility]; [facility] Work Phone: 09-07-2020 08:56-0500 Height 166.37 cm Shiraz Gray LPN [facility]; [facility] Work Phone: 09-07-2020 08:56-0500 Pulse (Heart Rate) 110 /min Shiraz Gray LPN [facility]prehens[facility]; [facility] Work Phone: Comment on above: Pattern: Regular 09-07-2020 08:56-0500 Pulse Oximetry 97 % Rachel Teresita [facility]; [facility] Work Phone: Comment on above: Room air 09-07-2020 08:56-0500 Respiratory Rate 18 /min Shiraz Gray LPN [facility]; [facility] Work Phone: Comment on above: Pattern: Unlabored 09-07-2020 08:56-0500 SaO2% (BldA) [Mass fraction] 97 % Shiraz Gray LPN [facility]; [facility] Work Phone: Comment on above: Room air 04-30-2020 08:52-0400 BMI (Body Mass Index) 37.71 kg/m2 Rachel Teresita DO Work Phone: [facility] Work Phone: 04-30-2020 08:52-0400 Body weight 104.38 kg Rachel Teresita DO Work Phone: [facility] Work Phone: 04-30-2020 08:52-0400 BP Diastolic 88 mm[Hg] Rachel Teresita DO Work Phone: [facility] Work Phone: Comment on above: Patient Position: Sitting 04-30-2020 08:52-0400 BP Systolic 148 mm[Hg] Rachel Teresiat DO Work Phone: [facility] Work Phone: Comment on above: Patient Position: Sitting 04-30-2020 08:52-0400 BSA (Body Surface Area) 2.11 m2 Rachel Teresita DO Work Phone: [facility] Work Phone: 04-30-2020 08:52-0400 Height 166.37 cm Rachel Teresita DO Work Phone: [facility] Work Phone: 04-30-2020 08:52-0400 Pulse (Heart Rate) 100 /min Rachel Teresita DO Work Phone: [facility] Work Phone: Comment on above: Pattern: Regular 04-30-2020 08:52-0400 Respiratory Rate 16 /min Rachel Teresita DO Work Phone: [facility] Work Phone: Comment on above: Pattern: Unlabored 12-27-2019 07:33-0400 BMI (Body Mass Index) 37.71 kg/m2 Laisha Chin [facility] Internal Medicine Work Phone: 12-27-2019 07:33-0400 Body Temperature 97.2 [degF] Laisha Chin [facility] Internal Medicine Work Phone: Comment on above: Method: Temporal 12-27-2019 07:33-0400 Body weight 104.38 kg Laisha Chin [facility] [place] Work Phone: 12-27-2019 07:33-0400 BP Diastolic 82 mm[Hg] Laisha Chin [facility] Internal Medicine Work Phone: Comment on above: Patient Position: Sitting; Cuff Location : Left Arm; Cuff Size: Standard 12-27-2019 07:33-0400 BP Systolic 120 mm[Hg] Laisha Elsy [facility] Internal Medicine Work Phone: Comment on above: Patient Position: Sitting; Cuff Location : Left Arm; Cuff Size: Standard 12-27-2019 07:33-0400 BSA (Body Surface Area) 2.11 m2 Laisha Chin [facility] Internal Medicine Work Phone: 12-27-2019 07:33-0400 Height 166.37 cm Laisha Chin [facility] [place] [facility] Work Phone: 12-27-2019 07:33-0400 Pulse (Heart Rate) 109 /min Laisha Chin [facility] [place] [facility] Work Phone: Comment on above: Pattern: Regular 12-27-2019 07:33-0400 Pulse Oximetry 97 % Rachel Lo [facility] Work Phone: Comment on above: Room air 12-27-2019 07:33-0400 Respiratory Rate 18 /min Laisha Chin [facility] [place] Work Phone: Comment on above: Pattern: Unlabored 12-27-2019 07:33-0400 SaO2% (BldA) [Mass fraction] 97 % Laisha Chin [facility]; [facility] Work Phone: Comment on above: Room air 12-24-2019 15:44-0400 BMI (Body Mass Index) 34.93 kg/m2 Shiraz Gray LPN [facility] Internal Medicine Work Phone: 12-24-2019 15:44-0400 Body Temperature 97.3 [degF] Shiraz Gray LPN [facility] Internal Medicine Work Phone: Comment on above: Method: Temporal 12-24-2019 15:44-0400 Body weight 96.67 kg Shiraz Gray LPN [facility] Internal Medicine Work Phone: 12-24-2019 15:44-0400 BP Diastolic 90 mm[Hg] Shiraz Gray LPN [facility] Internal Medicine Work Phone: Comment on above: Patient Position: Sitting; Cuff Location : Left Arm; Cuff Size: Standard 12-24-2019 15:44-0400 BP Systolic 160 mm[Hg] Shiraz Gray LPN [facility] Internal Medicine Work Phone: Comment on above: Patient Position: Sitting; Cuff Location : Left Arm; Cuff Size: Standard 12-24-2019 15:44-0400 BSA (Body Surface Area) 2.04 m2 Shiraz Gray LPN [facility] Internal Medicine Work Phone: 12-24-2019 15:44-0400 Height 166.37 cm Shiraz Gray LPN [facility] Work Phone: 12-24-2019 15:44-0400 Pulse (Heart Rate) 106 /min Shiraz Gray LPN [facility] Work Phone: Comment on above: Pattern: Regular 12-24-2019 15:44-0400 Pulse Oximetry 98 % Rachel Lo [facility] Work Phone: Comment on above: Room air 12-24-2019 15:44-0400 Respiratory Rate 16 /min Shiraz Gray LPN [facility] Work Phone: Comment on above: Pattern: Unlabored 12-24-2019 15:44-0400 SaO2% (BldA) [Mass fraction] 98 % Shiraz Gray [facility]; [facility] Work Phone: Comment on above: Room air 05-02-2019 09:19-0400 BMI (Body Mass Index) 34.93 kg/m2 Lisette Plink Comprehens [facility] Work Phone: 05-02-2019 09:19-0400 Body Temperature 97.5 [degF] [employer] [facility] Internal Medicine Work Phone: Comment on above: Method: Temporal 05-02-2019 09:19-0400 Body weight 96.67 kg [employer] [facility] Work Phone: 05-02-2019 09:19-0400 BP Diastolic 72 mm[Hg] [employer] [facility] Work Phone: Comment on above: Patient Position: Sitting; Cuff Location : Left Arm; Cuff Size: Standard 05-02-2019 09:19-0400 BP Systolic 116 mm[Hg] [employer] [facility] Internal Medicine Work Phone: Comment on above: Patient Position: Sitting; Cuff Location : Left Arm; Cuff Size: Standard 05-02-2019 09:19-0400 BSA (Body Surface Area) 2.04 m2 [employer] [facility] Work Phone: 05-02-2019 09:19-0400 Height 166.37 cm [employer] [facility] Work Phone: 05-02-2019 09:19-0400 Pulse (Heart Rate) 104 /min Lisette Plink [facility] Internal Medicine Work Phone: Comment on above: Pattern: Regular 05-02-2019 09:19-0400 Pulse Oximetry 98 % Rachel Lo [facility] Work Phone: Comment on above: Room air 05-02-2019 09:19-0400 Respiratory Rate 16 /min Lisette Plink [facility] Internal Medicine Work Phone: Comment on above: Pattern: Unlabored 05-02-2019 09:19-0400 SaO2% (BldA) [Mass fraction] 98 % Lisette Plink [facility]; [facility] Work Phone: Comment on above: Room air 02-21-2019 10:33-0400 BMI (Body Mass Index) 34.64 kg/m2 Lisette Plink [facility] Internal Medicine Work Phone: 02-21-2019 10:33-0400 Body weight 95.88 kg [employer] [facility] Work Phone: 02-21-2019 10:33-0400 BP Diastolic 82 mm[Hg] [employer] [facility] Work Phone: Comment on above: Patient Position: Sitting; Cuff Location : Left Arm; Cuff Size: Standard 02-21-2019 10:33-0400 BP Systolic 124 mm[Hg] [employer] [facility] Work Phone: Comment on above: Patient Position: Sitting; Cuff Location : Left Arm; Cuff Size: Standard 02-21-2019 10:33-0400 BSA (Body Surface Area) 2.04 m2 Lisette Plink [facility] Work Phone: 02-21-2019 10:33-0400 Height 166.37 cm Lisette Plink [facility] Work Phone: 02-21-2019 10:33-0400 Pulse (Heart Rate) 90 /min Lisette Plink [facility] Work Phone: Comment on above: Pattern: Regular 02-21-2019 10:33-0400 Pulse Oximetry 98 % Rachel Lo [facility] Work Phone: Comment on above: Room air 02-21-2019 10:33-0400 Respiratory Rate 18 /min Lisette Ty [facility] Work Phone: Comment on above: Pattern: Unlabored 02-21-2019 10:33-0400 SaO2% (BldA) [Mass fraction] 98 % Lisette Ty [facility]; [facility] Work Phone: Comment on above: Room air 12-24-2018 11:28-0400 BMI (Body Mass Index) 34.64 kg/m2 Jenny Rizvi RN [facility] Work Phone: 12-24-2018 11:28-0400 Body weight 95.88 kg Jenny Rizvi RN [facility] Work Phone: 12-24-2018 11:28-0400 BP Diastolic 82 mm[Hg] Jenny Rizvi RN [facility] Work Phone: Comment on above: Patient Position: Standing; Cuff Locatio n: Left Arm; Cuff Size: Standard 12-24-2018 11:28-0400 BP Systolic 124 mm[Hg] Jenny Rizvi RN [facility] Work Phone: Comment on above: Patient Position: Standing; Cuff Locatio n: Left Arm; Cuff Size: Standard 12-24-2018 11:28-0400 BSA (Body Surface Area) 2.04 m2 Jenny Rizvi RN [facility] Work Phone: 12-24-2018 11:28-0400 Height 166.37 cm Jenny Rizvi RN [facility] Work Phone: 12-24-2018 11:28-0400 Pulse (Heart Rate) 103 /min Jenny Rizvi RN [facility] Work Phone: Comment on above: Pattern: Regular 12-24-2018 11:28-0400 Pulse Oximetry 98 % Rachel Teresita [facility] Work Phone: Comment on above: Room air 12-24-2018 11:28-0400 Respiratory Rate 18 /min Jenny Rizvi RN [facility] Work Phone: Comment on above: Pattern: Unlabored 12-24-2018 11:28-0400 SaO2% (BldA) [Mass fraction] 98 % Jenny Rizvi RN [facility]; [facility] Work Phone: Comment on above: Room air 12-24-2018 11:28-0400 Weight 95.88 kg Rachel Lo [facility] Internal [facility] Work Phone: 07-17-2018 08:05-0500 BMI (Body Mass Index) 32.79 kg/m2 Shireen Vega [facility] Internal Medicine Work Phone: 07-17-2018 08:05-0500 Body Temperature 98.6 [degF] Shireen Vega [facility] Internal Medicine Work Phone: Comment on above: Method: Temporal 07-17-2018 08:05-0500 Body weight 90.77 kg Shireen Vega [facility] Work Phone: 07-17-2018 08:05-0500 BP Diastolic 74 mm[Hg] Shireen Vega [facility] Work Phone: Comment on above: Patient Position: Sitting; Cuff Location : Left Arm; Cuff Size: Standard 07-17-2018 08:05-0500 BP Systolic 114 mm[Hg] Shireen Vega [facility] Work Phone: Comment on above: Patient Position: Sitting; Cuff Location : Left Arm; Cuff Size: Standard 07-17-2018 08:05-0500 BSA (Body Surface Area) 1.99 m2 Shireen Vega [facility] Internal Medicine Work Phone: 07-17-2018 08:05-0500 Height 166.37 cm Shireen Vega [facility] Work Phone: 07-17-2018 08:05-0500 Pulse (Heart Rate) 86 /min Shireen Vega [facility] Internal [facility] Work Phone: Comment on above: Pattern: Regular 07-17-2018 08:05-0500 Pulse Oximetry 98 % Rachel Lo [facility] Internal Medicine Work Phone: Comment on above: Room air 07-17-2018 08:05-0500 Respiratory Rate 16 /min Shireen Vega [facility] Work Phone: Comment on above: Pattern: Unlabored 07-17-2018 08:05-0500 SaO2% (BldA) [Mass fraction] 98 % Shireen Vega [facility]; [facility] Work Phone: Comment on above: Room air 07-17-2018 08:05-0500 Weight 90.77 kg Rachel Lo [facility] Work Phone: 06-16-2017 08:42-0400 BMI (Body Mass Index) 33.51 kg/m2 Jenny Rizvi RN [facility] Work Phone: 06-16-2017 08:42-0400 Body weight 92.76 kg Jenny Rizvi RN [facility] Work Phone: 06-16-2017 08:42-0400 BP Diastolic 82 mm[Hg] Jenny Rizvi RN [facility] Work Phone: Comment on above: Patient Position: Sitting; Cuff Location : Left Arm; Cuff Size: Large 06-16-2017 08:42-0400 BP Systolic 124 mm[Hg] Jenny Rizvi RN [facility] Work Phone: Comment on above: Patient Position: Sitting; Cuff Location : Left Arm; Cuff Size: Large 06-16-2017 08:42-0400 BSA (Body Surface Area) 2.01 m2 Jenny Rizvi RN [facility] Work Phone: 06-16-2017 08:42-0400 Height 166.37 cm Jenny Rizvi RN [facility] Work Phone: 06-16-2017 08:42-0400 Pulse (Heart Rate) 76 /min Jenny Rizvi RN [facility] Work Phone: Comment on above: Pattern: Regular 06-16-2017 08:42-0400 Pulse Oximetry 96 % Rachel Lo [facility] Work Phone: Comment on above: Room air 06-16-2017 08:42-0400 Respiratory Rate 18 /min Jenny Rizvi RN [facility] Work Phone: Comment on above: Pattern: Unlabored 06-16-2017 08:42-0400 SaO2% (BldA) [Mass fraction] 96 % Jenny Rizvi RN [facility]; [facility] Work Phone: Comment on above: Room air 06-16-2017 08:42-0400 Weight 92.76 kg Rachel Lo [facility] Internal Medicine Work Phone: 04-19-2017 08:29-0400 BMI (Body Mass Index) 34.31 kg/m2 Milena Meño [facility] Internal Medicine Work Phone: 04-19-2017 08:29-0400 Body weight 94.97 kg [facility] Work Phone: 04-19-2017 08:29-0400 BP [facility] 76 mm[facility]Hg[facility]: Comment on above: Patient Position: Sitting; Cuff Location : Left Arm; Cuff Size: Standard 04-19-2017 08:29-0400 BP Systolic 118 mm[Hg] [facility] Work [facility]: Comment on above: Patient Position: Sitting; Cuff Location : Left Arm; Cuff Size: Standard 04-19-2017 08:29-0400 BSA (Body Surface Area) 2.03 m2 [facility] Work Phone: 04-19-2017 08:29-0400 Height 166.37 cm [facility] Internal Medicine Work Phone: 04-19-2017 08:29-0400 Pulse (Heart Rate) 79 /min [facility] Work Phone: Comment on above: Pattern: Regular 04-19-2017 08:29-0400 Pulse Oximetry 98 % Rachel Lo [facility] Work Phone: Comment on above: Room air 04-19-2017 08:29-0400 Respiratory Rate 18 /[facility] Work [facility]: Comment on above: Pattern: Unlabored 04-19-2017 08:29-0400 SaO2% (BldA) [Mass fraction] 98 % Milena Wilder [facility]; [facility] Work Phone: Comment on above: Room air 04-19-2017 08:29-0400 Weight 94.97 kg Rachel Lo [facility] Work Phone: 12-13-2016 09:37-0400 BMI (Body Mass Index) 35.03 kg/m2 Jenny Rizvi RN [facility] Work Phone: 12-13-2016 09:37-0400 Body weight 95.48 kg Jenny Rizvi RN [facility] Work Phone: 12-13-2016 09:37-0400 BP Diastolic 78 mm[Hg] Jenny Rizvi RN [facility] Work Phone: Comment on above: Patient Position: Sitting; Cuff Location : Left Arm; Cuff Size: Large 12-13-2016 09:37-0400 BP Systolic 120 mm[Hg] Jenny Rizvi RN [facility] Work Phone: Comment on above: Patient Position: Sitting; Cuff Location : Left Arm; Cuff Size: Large 12-13-2016 09:37-0400 BSA (Body Surface Area) 2.02 m2 Jenny Rizvi RN [facility] Work Phone: 12-13-2016 09:37-0400 Height 165.1 cm Jenny Rizvi RN [facility] Work Phone: 12-13-2016 09:37-0400 Pulse (Heart Rate) 90 /min Jenny Rizvi RN [facility] Work Phone: Comment on above: Pattern: Regular 12-13-2016 09:37-0400 Pulse Oximetry 97 % Rachel Lo [facility] Work Phone: Comment on above: Room air 12-13-2016 09:37-0400 Respiratory Rate 18 /min Jenny Rizvi RN [facility] Work Phone: Comment on above: Pattern: Unlabored 12-13-2016 09:37-0400 SaO2% (BldA) [Mass fraction] 97 % Jenny Rizvi RN [facility]; [facility] Work Phone: Comment on above: Room air 12-13-2016 09:37-0400 Weight 95.48 kg Rachel Lo [facility] Work Phone: 05-02-2016 09:11-0400 BMI (Body Mass Index) 35.32 kg/m2 Jenny Rizvi RN [facility] Work Phone: 05-02-2016 09:11-0400 Body weight 96.28 kg Jenny Rizvi RN [facility] Work Phone: 05-02-2016 09:11-0400 BP Diastolic 78 mm[Hg] Jenny Rizvi RN [facility] Work Phone: Comment on above: Patient Position: Sitting; Cuff Location : Left Arm; Cuff Size: Large 05-02-2016 09:11-0400 BP Systolic 120 mm[Hg] Jenny Rizvi RN [facility] Work Phone: Comment on above: Patient Position: Sitting; Cuff Location : Left Arm; Cuff Size: Large 05-02-2016 09:11-0400 BSA (Body Surface Area) 2.03 m2 Jenny Rizvi RN [facility] Work Phone: 05-02-2016 09:11-0400 Height 165.1 cm Jenny Rizvi RN [facility] Work Phone: 05-02-2016 09:11-0400 Pulse (Heart Rate) 99 /min Jenny Rizvi RN [facility] Work Phone: Comment on above: Pattern: Regular 05-02-2016 09:11-0400 Pulse Oximetry 97 % Rachel Teresita [facility] Work Phone: Comment on above: Room air 05-02-2016 09:11-0400 Respiratory Rate 18 /min Jenny Rizvi RN [facility] Work Phone: Comment on above: Pattern: Unlabored 05-02-2016 09:11-0400 SaO2% (BldA) [Mass fraction] 97 % Jenny Rizvi RN [facility]; [facility] Work Phone: Comment on above: Room air 05-02-2016 09:11-0400 Weight 96.28 kg Rachel Lo [facility] Work Phone: 07-03-2015 08:57-0500 BMI (Body Mass Index) 33.61 kg/m2 Jenny Rizvi RN [facility] Work Phone: 07-03-2015 08:57-0500 Body Temperature 99.8 [degF] Jenny Rizvi RN [facility] Work Phone: Comment on above: Method: Temporal 07-03-2015 08:57-0500 Body weight 91.63 kg Jenny Rizvi RN [facility] Work Phone: 07-03-2015 08:57-0500 BP Diastolic 78 mm[Hg] Jenny Rizvi RN [facility] Work Phone: Comment on above: Patient Position: Sitting; Cuff Location : Left Arm; Cuff Size: Large 07-03-2015 08:57-0500 BP Systolic 128 mm[Hg] Jenny Rizvi RN [facility] Work Phone: Comment on above: Patient Position: Sitting; Cuff Location : Left Arm; Cuff Size: Large 07-03-2015 08:57-0500 BSA (Body Surface Area) 1.99 m2 Jenny Rizvi RN [facility] Work Phone: 07-03-2015 08:57-0500 Height 165.1 cm Jenny Rizvi RN [facility] Work Phone: 07-03-2015 08:57-0500 Pulse (Heart Rate) 106 /min Jenny Rizvi RN [facility] Work Phone: Comment on above: Pattern: Regular 07-03-2015 08:57-0500 Pulse Oximetry 97 % Rachel Lo [facility] Work Phone: Comment on above: Room air 07-03-2015 08:57-0500 Respiratory Rate 20 /min Jenny Rizvi RN [facility] Work Phone: Comment on above: Pattern: Unlabored 07-03-2015 08:57-0500 SaO2% (BldA) [Mass fraction] 97 % Jenny Rizvi RN [facility]; [facility] Work Phone: Comment on above: Room air 07-03-2015 08:57-0500 Weight 91.63 kg Rachel Lo [facility] Work Phone: 05-05-2015 09:36-0400 BMI (Body Mass Index) 33.61 kg/m2 Stephani Tinoco RN [facility] Work Phone: 05-05-2015 09:36-0400 Body weight 91.63 kg Stephani Tinoco RN [facility] Work Phone: 05-05-2015 09:36-0400 BP Diastolic 76 mm[Hg] Stephani Tinoco RN [facility] Work Phone: Comment on above: Patient Position: Sitting; Cuff Location : Left Arm; Cuff Size: Standard 05-05-2015 09:36-0400 BP Systolic 118 mm[Hg] Stephani Tinoco RN [facility] Work Phone: Comment on above: Patient Position: Sitting; Cuff Location : Left Arm; Cuff Size: Standard 05-05-2015 09:36-0400 BSA (Body Surface Area) 1.99 m2 Stephani Tinoco RN [facility] Work Phone: 05-05-2015 09:36-0400 Height 165.1 cm Stephani Tinoco RN [facility] Work Phone: 05-05-2015 09:36-0400 Pulse (Heart Rate) 72 /min Stephani Tinoco RN [facility] Work Phone: Comment on above: Pattern: Regular 05-05-2015 09:36-0400 Respiratory Rate 16 /min Stephani Tinoco RN [facility] Work Phone: Comment on above: Pattern: Unlabored 05-05-2015 09:36-0400 Weight 91.63 kg Rachel Lo [facility] Work Phone: 08-06-2014 09:48-0500 BMI (Body Mass Index) 33.85 kg/m2 Natty Jaramillo LPN [facility] Work Phone: 08-06-2014 09:48-0500 Body Temperature 100.8 [degF] Natty Jaramillo LPN [facility] Work Phone: Comment on above: Method: Oral 08-06-2014 09:48-0500 Body weight 92.28 kg Natty Jaramillo LPN [facility] Work Phone: 08-06-2014 09:48-0500 BP Diastolic 80 mm[Hg] Natty Jaramillo LPN [facility] Work Phone: Comment on above: Patient Position: Sitting; Cuff Location : Left Arm; Cuff Size: Standard 08-06-2014 09:48-0500 BP Systolic 118 mm[Hg] Natty Jaramillo LPN [facility] Work Phone: Comment on above: Patient Position: Sitting; Cuff Location : Left Arm; Cuff Size: Standard 08-06-2014 09:48-0500 BSA (Body Surface Area) 1.99 m2 Natty Jaramillo LPN [facility] Work Phone: 08-06-2014 09:48-0500 Height 165.1 cm Natty Jaramillo LPN [facility] Work Phone: 08-06-2014 09:48-0500 Pulse (Heart Rate) 128 /min Natty Jaramillo LPN [facility] Work Phone: Comment on above: Pattern: Regular 08-06-2014 09:48-0500 Pulse Oximetry 97 % Rachel Lo [facility] Work Phone: Comment on above: Room air 08-06-2014 09:48-0500 Respiratory Rate 20 /min Natty Jaramillo LPN [facility] Work Phone: 08-06-2014 09:48-0500 SaO2% (BldA) [Mass fraction] 97 % Natty Jaramillo LPN [facility]; [facility] Work Phone: Comment on above: Room air 08-06-2014 09:48-0500 Weight 92.28 kg Rachel Teresita [facility] Work Phone: 05-26-2014 12:41-0400 BMI (Body Mass Index) 33.85 kg/m2 Jenny Rizvi RN [facility] Work Phone: 05-26-2014 12:41-0400 Body weight 92.28 kg Jenny Rizvi RN [facility] Work Phone: 05-26-2014 12:41-0400 BP Diastolic 78 mm[Hg] Jenny Rizvi RN [facility] Work Phone: Comment on above: Patient Position: Sitting; Cuff Location : Left Arm; Cuff Size: Large 05-26-2014 12:41-0400 BP Systolic 120 mm[Hg] Jenny Rizvi RN [facility] Work Phone: Comment on above: Patient Position: Sitting; Cuff Location : Left Arm; Cuff Size: Large 05-26-2014 12:41-0400 BSA (Body Surface Area) 1.99 m2 Jenny Rizvi RN [facility] Work Phone: 05-26-2014 12:41-0400 Height 165.1 cm Jenny Rizvi RN [facility] Work Phone: 05-26-2014 12:41-0400 Pulse (Heart Rate) 96 /min Jenny Rizvi RN [facility] Work Phone: Comment on above: Pattern: Regular 05-26-2014 12:41-0400 Pulse Oximetry 96 % Rachel Lo [facility] Work Phone: Comment on above: Room air 05-26-2014 12:41-0400 Respiratory Rate 18 /min Jenny Rizvi RN [facility] Work Phone: Comment on above: Pattern: Unlabored 05-26-2014 12:41-0400 SaO2% (BldA) [Mass fraction] 96 % Jenny Rizvi RN [facility]; [facility] Work Phone: Comment on above: Room air 05-26-2014 12:41-0400 Weight 92.28 kg Rachelirma Lo [facility] Work Phone: 05-14-2014 10:33-0400 BMI (Body Mass Index) 33.49 kg/m2 Jenny Rizvi RN [facility] Work Phone: 05-14-2014 10:33-0400 Body weight 91.29 kg Jenny Rizvi RN [facility] Work Phone: 05-14-2014 10:33-0400 BP Diastolic 80 mm[Hg] Jenny Rizvi RN [facility] Work Phone: Comment on above: Patient Position: Sitting; Cuff Location : Left Arm; Cuff Size: Large 05-14-2014 10:33-0400 BP Systolic 124 mm[Hg] Jenny Rizvi RN [facility] Work Phone: Comment on above: Patient Position: Sitting; Cuff Location : Left Arm; Cuff Size: Large 05-14-2014 10:33-0400 BSA (Body Surface Area) 1.98 m2 Jenny Rizvi RN [facility] Work Phone: 05-14-2014 10:33-0400 Height 165.1 cm Jenny Rizvi RN [facility] Work Phone: 05-14-2014 10:33-0400 Pulse (Heart Rate) 93 /min Jenny Rizvi RN [facility] Work Phone: Comment on above: Pattern: Regular 05-14-2014 10:33-0400 Pulse Oximetry 98 % Rachel Cox [facility] Work Phone: Comment on above: Room air 05-14-2014 10:33-0400 Respiratory Rate 20 /min Jenny Rizvi RN [facility] Work Phone: Comment on above: Pattern: Unlabored 05-14-2014 10:33-0400 SaO2% (BldA) [Mass fraction] 98 % Jenny Rizvi RN [facility]; [facility] Work Phone: Comment on above: Room air 05-14-2014 10:33-0400 Weight 91.29 kg Rachel [facility] Work Phone: 03-04-2014 14:40-0400 BMI (Body Mass Index) 33.81 kg/m2 Milena Wilder [facility] Work Phone: 03-04-2014 14:40-0400 Body Temperature 99.4 [degF] Milena Cox [facility] Work Phone: Comment on above: Method: Oral 03-04-2014 14:40-0400 Body weight 92.17 kg Milena Wilder [facility] Work Phone: 03-04-2014 14:40-0400 BP Diastolic 78 mm[Hg] Milena Wilder [facility] Work Phone: Comment on above: Patient Position: Sitting; Cuff Location : Left Arm; Cuff Size: Standard 03-04-2014 14:40-0400 BP Systolic 138 mm[Hg] Milena Wilder [facility] Work Phone: Comment on above: Patient Position: Sitting; Cuff Location : Left Arm; Cuff Size: Standard 03-04-2014 14:40-0400 BSA (Body Surface Area) 1.99 m2 Milena Wilder [facility] Work Phone: 03-04-2014 14:40-0400 Height 165.1 cm Milena Wilder [facility] Work Phone: 03-04-2014 14:40-0400 Pulse (Heart Rate) 109 /min Milena Wilder [facility] Work Phone: Comment on above: Pattern: Regular 03-04-2014 14:40-0400 Pulse Oximetry 98 % Rachel Lo [facility] Work Phone: Comment on above: Room air 03-04-2014 14:40-0400 Respiratory Rate 18 /min Milena Wilder [facility] Work Phone: Comment on above: Pattern: Unlabored 03-04-2014 14:40-0400 SaO2% (BldA) [Mass fraction] 98 % Milena Wilder [facility]; [facility] Work Phone: Comment on above: Room air 03-04-2014 14:40-0400 Weight 92.17 kg Rachel Lo [facility] Work Phone: 01-23-2014 12:10-0400 BMI (Body Mass Index) 33.83 kg/m2 Stephani Tinoco RN [facility] Work Phone: 01-23-2014 12:10-0400 Body Temperature 97.4 [degF] Stephani Tinoco RN [facility] Work Phone: Comment on above: Method: Temporal 01-23-2014 12:10-0400 Body weight 92.22 kg Stephani Tinoco RN [facility] Work Phone: 01-23-2014 12:10-0400 BP Diastolic 72 mm[Hg] Stephani Tinoco RN [facility] Work Phone: Comment on above: Patient Position: Sitting; Cuff Location : Left Arm; Cuff Size: Standard 01-23-2014 12:10-0400 BP Systolic 124 mm[Hg] Stephani Tinoco RN [facility] Work Phone: Comment on above: Patient Position: Sitting; Cuff Location : Left Arm; Cuff Size: Standard 01-23-2014 12:10-0400 BSA (Body Surface Area) 1.99 m2 Stephani Tinoco RN [facility] Work Phone: 01-23-2014 12:10-0400 Height 165.1 cm Stephani Tinoco RN [facility] Work Phone: 01-23-2014 12:10-0400 Pulse (Heart Rate) 80 /min Stephani Tinoco RN [facility] Work Phone: Comment on above: Pattern: Regular 01-23-2014 12:10-0400 Pulse Oximetry 98 % Rachel Lo [facility] Work Phone: Comment on above: Room air 01-23-2014 12:10-0400 Respiratory Rate 16 /min Stephani Tinoco RN [facility] Work Phone: Comment on above: Pattern: Unlabored 01-23-2014 12:10-0400 SaO2% (BldA) [Mass fraction] 98 % Stephani Tinoco RN [facility]; [facility] Work Phone: Comment on above: Room air 01-23-2014 12:10-0400 Weight 92.22 kg Rachel Teresita [facility] Work Phone: 01-13-2014 10:37-0400 BP Diastolic 78 mm[Hg] Jenny Rizvi RN [facility] Work Phone: 01-13-2014 10:37-0400 BP Systolic 136 mm[Hg] Jenny Rizvi RN [facility] Work Phone: 01-13-2014 10:03-0400 BMI (Body Mass Index) 33.83 kg/m2 Jenny Rizvi RN [facility] Work Phone: 01-13-2014 10:03-0400 Body weight 92.22 kg Jenny Rizvi RN [facility] Work Phone: 01-13-2014 10:03-0400 BP Diastolic 90 mm[Hg] Jenny Rizvi RN [facility] Work Phone: Comment on above: Patient Position: Sitting; Cuff Location : Left Arm; Cuff Size: Large 01-13-2014 10:03-0400 BP Systolic 160 mm[Hg] Jenny Rizvi RN [facility] Work Phone: Comment on above: Patient Position: Sitting; Cuff Location : Left Arm; Cuff Size: Large 01-13-2014 10:03-0400 BSA (Body Surface Area) 1.99 m2 Jenny Rizvi RN [facility] Work Phone: 01-13-2014 10:03-0400 Height 165.1 cm Jenny Rizvi RN [facility] Work Phone: 01-13-2014 10:03-0400 Pulse (Heart Rate) 111 /min Jenny Rizvi RN [facility] Work Phone: Comment on above: Pattern: Regular 01-13-2014 10:03-0400 Pulse Oximetry 98 % Rachel Teresita [facility] Work Phone: Comment on above: Room air 01-13-2014 10:03-0400 Respiratory Rate 20 /min Jenny Rizvi RN [facility] Work Phone: Comment on above: Pattern: Unlabored 01-13-2014 10:03-0400 SaO2% (BldA) [Mass fraction] 98 % Jenny Rizvi RN [facility]; [facility] Work Phone: Comment on above: Room air 01-13-2014 10:03-0400 Weight 92.22 kg Rachel Teresita [facility] Work Phone: 07-25-2013 09:36-0500 BMI (Body Mass Index) 31.71 kg/m2 Jenny Rizvi RN [facility] Work Phone: 07-25-2013 09:36-0500 Body weight 86.44 kg Jenny Rizvi RN [facility] Work Phone: 07-25-2013 09:36-0500 BP Diastolic 70 mm[Hg] Jenny Rizvi RN [facility] Work Phone: Comment on above: Patient Position: Sitting; Cuff Location : Left Arm; Cuff Size: Large 07-25-2013 09:36-0500 BP Systolic 110 mm[Hg] Jenny Rizvi RN [facility] Work Phone: Comment on above: Patient Position: Sitting; Cuff Location : Left Arm; Cuff Size: Large 07-25-2013 09:36-0500 BSA (Body Surface Area) 1.94 m2 Jenny Rizvi RN [facility] Work Phone: 07-25-2013 09:36-0500 Height 165.1 cm Jenny Rizvi RN [facility] Work Phone: 07-25-2013 09:36-0500 Pulse (Heart Rate) 66 /min Jenny Rizvi RN [facility] Work Phone: Comment on above: Pattern: Regular 07-25-2013 09:36-0500 Pulse Oximetry 98 % Rachel Lo [facility] Work Phone: Comment on above: Room air 07-25-2013 09:36-0500 Respiratory Rate 20 /min Jenny Rizvi RN [facility] Work Phone: Comment on above: Pattern: Unlabored 07-25-2013 09:36-0500 SaO2% (BldA) [Mass fraction] 98 % Jenny Rizvi RN [facility]; [facility] Work Phone: Comment on above: Room air 07-25-2013 09:36-0500 Weight 86.44 kg Rachel Lo [facility] Work Phone: 07-04-2013 13:20-0500 BMI (Body Mass Index) 31.8 kg/m2 Maylin Jackson [facility] Work Phone: 07-04-2013 13:20-0500 Body weight 86.69 kg Maylin Jackson [facility] Work Phone: 07-04-2013 13:20-0500 BP Diastolic 70 mm[Hg] Maylin Jackson [facility] Work Phone: Comment on above: Patient Position: Sitting; Cuff Location : Left Arm; Cuff Size: Standard 07-04-2013 13:20-0500 BP Systolic 115 mm[Hg] Maylin Jackson [facility] Work Phone: Comment on above: Patient Position: Sitting; Cuff Location : Left Arm; Cuff Size: Standard 07-04-2013 13:20-0500 BSA (Body Surface Area) 1.94 m2 Maylin Jackson [facility] Work Phone: 07-04-2013 13:20-0500 Height 165.1 cm Maylin Jackson [facility] Work Phone: 07-04-2013 13:20-0500 Pulse (Heart Rate) 88 /min Maylin Jackson [facility] Work Phone: Comment on above: Pattern: Regular 07-04-2013 13:20-0500 Respiratory Rate 16 /min Maylin Jackson [facility] Work Phone: Comment on above: Pattern: Unlabored 07-04-2013 13:20-0500 Weight 86.69 kg Rachel Lo [facility] Work Phone: 06-20-2013 10:34-0500 BMI (Body Mass Index) 32.16 kg/m2 Jenny Rizvi RN [facility] Work Phone: 06-20-2013 10:34-0500 Body Temperature 98.3 [degF] Jenny Rizvi RN [facility] Work Phone: Comment on above: Method: Oral 06-20-2013 10:34-0500 Body weight 87.66 kg Jenny Rizvi RN [facility] Work Phone: 06-20-2013 10:34-0500 BP Diastolic 68 mm[Hg] Jenny Rizvi RN [facility] Work Phone: Comment on above: Patient Position: Sitting; Cuff Location : Left Arm; Cuff Size: Large 06-20-2013 10:34-0500 BP Systolic 124 mm[Hg] Jenny Rizvi RN [facility] Work Phone: Comment on above: Patient Position: Sitting; Cuff Location : Left Arm; Cuff Size: Large 06-20-2013 10:34-0500 BSA (Body Surface Area) 1.95 m2 Jenny Rizvi RN [facility] Work Phone: 06-20-2013 10:34-0500 Height 165.1 cm Jenny Rizvi RN [facility] Work Phone: 06-20-2013 10:34-0500 Pulse (Heart Rate) 68 /min Jenny Rizvi RN [facility] Work Phone: Comment on above: Pattern: Regular 06-20-2013 10:34-0500 Respiratory Rate 20 /min Jenny Rizvi RN [facility] Work Phone: Comment on above: Pattern: Unlabored 06-20-2013 10:34-0500 Weight 87.66 kg Rachel Lo [facility] Work Phone: 05-24-2013 13:14-0400 BMI (Body Mass Index) 32.96 kg/m2 Milenaestrella Wilder [facility] Work Phone: 05-24-2013 13:14-0400 Body Temperature 97.8 [degF] Milenaestrella Wilder [facility] Work Phone: Comment on above: Method: Tympanic 05-24-2013 13:14-0400 Body weight 89.84 kg Milena Wilder [facility] Work Phone: 05-24-2013 13:14-0400 BP Diastolic 72 mm[Hg] [facility] Work Phone: Comment on above: Patient Position: Sitting; Cuff Location : Left Arm; Cuff Size: Standard 05-24-2013 13:14-0400 BP Systolic 122 mm[Hg] Milenaestrella Munsony [facility] Work Phone: Comment on above: Patient Position: Sitting; Cuff Location : Left Arm; Cuff Size: Standard 05-24-2013 13:14-0400 BSA (Body Surface Area) 1.97 m2 Milena Wilder [facility] Work Phone: 05-24-2013 13:14-0400 Height 165.1 cm Milena Wilder [facility] Work Phone: 05-24-2013 13:14-0400 Pulse (Heart Rate) 110 /min Milena Wilder [facility] Work Phone: Comment on above: Pattern: Regular 05-24-2013 13:14-0400 Pulse Oximetry 98 % Rachel Lo [facility] Work Phone: Comment on above: Room air 05-24-2013 13:14-0400 Respiratory Rate 18 /min Milena Wilder [facility] Work Phone: Comment on above: Pattern: Unlabored 05-24-2013 13:14-0400 SaO2% (BldA) [Mass fraction] 98 % Milena Wilder [facility]; [facility] Work Phone: Comment on above: Room air 05-24-2013 13:14-0400 Weight 89.84 kg Rachel Lo [facility] Work Phone: 05-20-2013 11:25-0400 BMI (Body Mass Index) 32.96 kg/m2 Jenny Rizvi RN [facility] Work Phone: 05-20-2013 11:25-0400 Body weight 89.84 kg Jenny Rizvi RN [facility] Work Phone: 05-20-2013 11:25-0400 BP Diastolic 62 mm[Hg] Jenny Rizvi RN [facility] Work Phone: Comment on above: Patient Position: Sitting; Cuff Location : Left Arm; Cuff Size: Large 05-20-2013 11:25-0400 BP Systolic 128 mm[Hg] Jenny Rizvi RN [facility] Work Phone: Comment on above: Patient Position: Sitting; Cuff Location : Left Arm; Cuff Size: Large 05-20-2013 11:25-0400 BSA (Body Surface Area) 1.97 m2 Jenny Rizvi RN [facility] Work Phone: 05-20-2013 11:25-0400 Height 165.1 cm Jenny Rizvi RN [facility] Work Phone: 05-20-2013 11:25-0400 Pulse (Heart Rate) 102 /min Jenny Rizvi RN [facility] Work Phone: Comment on above: Pattern: Regular 05-20-2013 11:25-0400 Pulse Oximetry 98 % Rachel Pateon [facility] Work Phone: Comment on above: Room air 05-20-2013 11:25-0400 Respiratory Rate 20 /min Jenny Rizvi RN [facility] Work Phone: Comment on above: Pattern: Unlabored 05-20-2013 11:25-0400 SaO2% (BldA) [Mass fraction] 98 % Jenny Rizvi RN [facility]; [facility] Work Phone: Comment on above: Room air 05-20-2013 11:25-0400 Weight 89.84 kg Rachel Pateon [facility] Work Phone: 05-02-2013 10:36-0400 BMI (Body Mass Index) 32.29 kg/m2 Jenny Rizvi RN [facility] Work Phone: 05-02-2013 10:36-0400 Body Temperature 98.4 [degF] Jenny Rizvi RN [facility] Work Phone: Comment on above: Method: Oral 05-02-2013 10:36-0400 Body weight 88.03 kg Jenny Rizvi RN [facility] Work Phone: 05-02-2013 10:36-0400 BP Diastolic 78 mm[Hg] Jenny Rizvi RN [facility] Work Phone: Comment on above: Patient Position: Sitting; Cuff Location : Left Arm; Cuff Size: Large 05-02-2013 10:36-0400 BP Systolic 128 mm[Hg] Jenny Rizvi RN [facility] Work Phone: Comment on above: Patient Position: Sitting; Cuff Location : Left Arm; Cuff Size: Large 05-02-2013 10:36-0400 BSA (Body Surface Area) 1.95 m2 Jenny Rizvi RN [facility] Work Phone: 05-02-2013 10:36-0400 Height 165.1 cm Jenny Rizvi RN [facility] Work Phone: 05-02-2013 10:36-0400 Pulse (Heart Rate) 84 /min Jenny Rizvi RN [facility] Work Phone: Comment on above: Pattern: Regular 05-02-2013 10:36-0400 Respiratory Rate 18 /min Jenny Rizvi RN [facility] Work Phone: Comment on above: Pattern: Unlabored 05-02-2013 10:36-0400 Weight 88.03 kg Rachel Lo [facility] Work Phone: 06-28-2012 10:39-0500 BMI (Body Mass Index) 29.34 kg/m2 Jenny Rizvi RN [facility] Work Phone: 06-28-2012 10:39-0500 Body Temperature 97.8 [degF] Jenny Rizvi RN [facility] Work Phone: Comment on above: Method: Oral 06-28-2012 10:39-0500 Body weight 79.98 kg Jenny Rizvi RN [facility] Work Phone: 06-28-2012 10:39-0500 BP Diastolic 78 mm[Hg] Jenny Rizvi RN [facility] Work Phone: Comment on above: Patient Position: Sitting; Cuff Location : Left Arm; Cuff Size: Standard 06-28-2012 10:39-0500 BP Systolic 122 mm[Hg] Jenny Rizvi RN [facility] Work Phone: Comment on above: Patient Position: Sitting; Cuff Location : Left Arm; Cuff Size: Standard 06-28-2012 10:39-0500 BSA (Body Surface Area) 1.88 m2 Jenny Rizvi RN [facility] Work Phone: 06-28-2012 10:39-0500 Height 165.1 cm Jenny Rizvi RN [facility] Medicine Work Phone: 06-28-2012 10:39-0500 Pulse (Heart Rate) 88 /min Jenny Rizvi RN [facility] Work Phone: Comment on above: Pattern: Regular 06-28-2012 10:39-0500 Respiratory Rate 20 /min Jenny Rizvi RN [facility] Work Phone: Comment on above: Pattern: Unlabored 06-28-2012 10:39-0500 Weight 79.98 kg Rachel Lo [facility] Medicine Work Phone: 05-25-2012 13:33-0400 BMI (Body Mass Index) 29.62 kg/m2 Natty Jaramillo LPN [facility] Work Phone: 05-25-2012 13:33-0400 Body Temperature 98 [degF] Natty Jaramillo LPN [facility] Work Phone: Comment on above: Method: Oral 05-25-2012 13:33-0400 Body weight 80.74 kg Natty Jaramillo LPN [facility] Work Phone: 05-25-2012 13:33-0400 BP Diastolic 74 mm[Hg] Natty Jaramillo LPN [facility] Work Phone: Comment on above: Patient Position: Sitting; Cuff Location : Left Arm; Cuff Size: Standard 05-25-2012 13:33-0400 BP Systolic 118 mm[Hg] Natty Jaramillo LPN [facility] Work Phone: Comment on above: Patient Position: Sitting; Cuff Location : Left Arm; Cuff Size: Standard 05-25-2012 13:33-0400 BSA (Body Surface Area) 1.88 m2 Natty Jaramillo LPN [facility] Work Phone: 05-25-2012 13:33-0400 Height 165.1 cm Natty Jaramillo LPN [facility] Work Phone: 05-25-2012 13:33-0400 Pulse (Heart Rate) 86 /min Natty Jaramillo LPN [facility] Work Phone: Comment on above: Pattern: Regular 05-25-2012 13:33-0400 Pulse Oximetry 98 % Rachel Lo [facility] Internal Medicine Work Phone: Comment on above: Room air 05-25-2012 13:33-0400 Respiratory Rate 16 /min Natty Jaramillo DYNO TECHNICIAN [facility] Work Phone: 05-25-2012 13:33-0400 SaO2% (BldA) [Mass fraction] 98 % Natty Clint PARDO [facility]; [facility] Work Phone: Comment on above: Room air 05-25-2012 13:33-0400 Weight 80.74 kg Rachel Lo [facility] Work Phone: 04-23-2012 11:36-0400 BMI (Body Mass Index) 31.28 kg/m2 Jenny Rizvi RN [facility] Work Phone: 04-23-2012 11:36-0400 Body weight 85.28 kg Jenny Rizvi RN [facility] Work Phone: 04-23-2012 11:36-0400 BP Diastolic 78 mm[Hg] Jenny Rizvi RN [facility] Work Phone: Comment on above: Patient Position: Sitting; Cuff Location : Left Arm; Cuff Size: Standard 04-23-2012 11:36-0400 BP Systolic 122 mm[Hg] Jenny Rizvi RN [facility] Work Phone: Comment on above: Patient Position: Sitting; Cuff Location : Left Arm; Cuff Size: Standard 04-23-2012 11:36-0400 BSA (Body Surface Area) 1.93 m2 Jenny Rizvi RN [facility] Work Phone: 04-23-2012 11:36-0400 Height 165.1 cm Jenny Rizvi RN [facility] Work Phone: 04-23-2012 11:36-0400 Pulse (Heart Rate) 68 /min Jenny Rizvi RN [facility] Work Phone: Comment on above: Pattern: Regular 04-23-2012 11:36-0400 Respiratory Rate 16 /min Jenny Rizvi RN [facility] Work Phone: Comment on above: Pattern: Unlabored 04-23-2012 11:36-0400 Weight 85.28 kg Rachel Lo [facility] Work Phone: 03-01-2012 11:33-0400 BMI (Body Mass Index) 31.29 kg/m2 Jenny Rizvi RN [facility] Work Phone: 03-01-2012 11:33-0400 Body Temperature 97.4 [degF] Jenny Rizvi RN [facility] Work Phone: Comment on above: Method: Oral 03-01-2012 11:33-0400 Body weight 85.31 kg Jenny Rizvi RN [facility] Work Phone: 03-01-2012 11:33-0400 BP Diastolic 62 mm[Hg] Jenny Rizvi RN [facility] Work Phone: Comment on above: Patient Position: Sitting; Cuff Location : Left Arm; Cuff Size: Large 03-01-2012 11:33-0400 BP Systolic 122 mm[Hg] Jenny Rizvi RN [facility] Work Phone: Comment on above: Patient Position: Sitting; Cuff Location : Left Arm; Cuff Size: Large 03-01-2012 11:33-0400 BSA (Body Surface Area) 1.93 m2 Jenny Rizvi RN [facility] Work Phone: 03-01-2012 11:33-0400 Height 165.1 cm Jenny Rizvi RN [facility] Work Phone: 03-01-2012 11:33-0400 Pulse (Heart Rate) 68 /min Jenny Rizvi RN [facility] Work Phone: Comment on above: Pattern: Regular 03-01-2012 11:33-0400 Respiratory Rate 20 /min Jenny Rizvi RN [facility] Work Phone: Comment on above: Pattern: Unlabored 03-01-2012 11:33-0400 Weight 85.31 kg Rachel Lo [facility] Work Phone: 01-04-2012 11:33-0400 BMI (Body Mass Index) 31.52 kg/m2 Jenny Rizvi RN [facility] Work Phone: 01-04-2012 11:33-0400 Body weight 85.93 kg Jenny Rizvi RN [facility] Work Phone: 01-04-2012 11:33-0400 BP Diastolic 80 mm[Hg] Jenny Rizvi RN [facility] Work Phone: Comment on above: Patient Position: Sitting; Cuff Location : Left Arm; Cuff Size: Large 01-04-2012 11:33-0400 BP Systolic 120 mm[Hg] Jenny Rizvi RN [facility] Work Phone: Comment on above: Patient Position: Sitting; Cuff Location : Left Arm; Cuff Size: Large 01-04-2012 11:33-0400 BSA (Body Surface Area) 1.93 m2 Jenny Rizvi RN [facility] Work Phone: 01-04-2012 11:33-0400 Height 165.1 cm Jenny Rizvi RN [facility] Work Phone: 01-04-2012 11:33-0400 Pulse (Heart Rate) 80 /min Jenny Rizvi RN [facility] Work Phone: Comment on above: Pattern: Regular 01-04-2012 11:33-0400 Respiratory Rate 20 /min Jenny Rizvi RN [facility] Work Phone: Comment on above: Pattern: Unlabored 01-04-2012 11:33-0400 Weight 85.93 kg Rachel Lo [facility] Work Phone: 09-05-2011 08:55-0500 BMI (Body Mass Index) 31.51 kg/m2 Jenny Rizvi RN [facility] Work Phone: 09-05-2011 08:55-0500 Body Temperature 97 [degF] Jenny Rizvi RN [facility] Work Phone: 09-05-2011 08:55-0500 Body weight 85.9 kg Jenny Rizvi RN [facility] Work Phone: 09-05-2011 08:55-0500 BP Diastolic 62 mm[Hg] Jenny Rizvi RN [facility] Work Phone: Comment on above: Patient Position: Sitting; Cuff Location : Left Arm; Cuff Size: Large 09-05-2011 08:55-0500 BP Systolic 120 mm[Hg] Jenny Rizvi RN [facility] Work Phone: Comment on above: Patient Position: Sitting; Cuff Location : Left Arm; Cuff Size: Large 09-05-2011 08:55-0500 BSA (Body Surface Area) 1.93 m2 Jenny Rizvi RN [facility] Work Phone: 09-05-2011 08:55-0500 Height 165.1 cm Jenny Rizvi RN [facility] Work Phone: 09-05-2011 08:55-0500 Pulse (Heart Rate) 60 /min Jenny Rizvi RN [facility] Work Phone: Comment on above: Pattern: Regular 09-05-2011 08:55-0500 Respiratory Rate 20 /min Jenny Rizvi RN [facility] Work Phone: Comment on above: Pattern: Unlabored 09-05-2011 08:55-0500 Weight 85.9 kg Rachel Lo [facility] Work Phone: 01-28-2011 08:44-0400 BMI (Body Mass Index) 30.79 kg/m2 JOCELYN Strong LPN [facility] Medicine Work Phone: 01-28-2011 08:44-0400 Body Temperature 97.9 [degF] JOCELYN Strong LPN [facility] Internal Medicine Work Phone: Comment on above: Method: Oral 01-28-2011 08:44-0400 Body weight 83.92 kg JOCELYN Strong LPN [facility] Work Phone: 01-28-2011 08:44-0400 BP Diastolic 68 mm[Hg] JOCELYN Strong LPN [facility] Work Phone: Comment on above: Patient Position: Sitting; Cuff Location : Left Arm; Cuff Size: Standard 01-28-2011 08:44-0400 BP Systolic 116 mm[Hg] JOCELYN Strong LPN [facility] Medicine Work Phone: Comment on above: Patient Position: Sitting; Cuff Location : Left Arm; Cuff Size: Standard 01-28-2011 08:44-0400 BSA (Body Surface Area) 1.91 m2 JOCELYN Strong LPN [facility] Internal Medicine Work Phone: 01-28-2011 08:44-0400 Height 165.1 cm JOCELYN Strong LPN [facility] Work Phone: 01-28-2011 08:44-0400 Pulse (Heart Rate) 68 /min JOCELYN Strong CHAR [facility] Work Phone: Comment on above: Pattern: Regular 01-28-2011 08:44-0400 Respiratory Rate 18 /min JOCELYN Strong CHAR [facility] Work Phone: Comment on above: Pattern: Unlabored 01-28-2011 08:44-0400 Weight 83.92 kg Rachel Lo [facility] Work Phone: 11-11-2010 14:03-0400 BMI (Body Mass Index) 30.95 kg/m2 Stephani Tinoco RN [facility] Medicine Work Phone: 11-11-2010 14:03-0400 Body weight 84.37 kg Stephani Tinoco RN [facility] Work Phone: 11-11-2010 14:03-0400 BP Diastolic 60 mm[Hg] Stephani Tinoco RN [facility] Work Phone: Comment on above: Patient Position: Sitting; Cuff Location : Left Arm; Cuff Size: Standard 11-11-2010 14:03-0400 BP Systolic 122 mm[Hg] Stephani Tinoco RN [facility] Work Phone: Comment on above: Patient Position: Sitting; Cuff Location : Left Arm; Cuff Size: Standard 11-11-2010 14:03-0400 BSA (Body Surface Area) 1.92 m2 Stephani Tinoco RN [facility] Work Phone: 11-11-2010 14:03-0400 Height 165.1 cm Stephani Tinoco RN [facility] Work Phone: 11-11-2010 14:03-0400 Pulse (Heart Rate) 66 /min Stephani Tinoco RN [facility] Work Phone: Comment on above: Pattern: Regular 11-11-2010 14:03-0400 Respiratory Rate 16 /min Stephani Tinoco RN [facility] Work Phone: Comment on above: Pattern: Unlabored 11-11-2010 14:03-0400 Weight 84.37 kg Rachel Pateon [facility] Work Phone: 08-30-2010 15:18-0500 BMI (Body Mass Index) 30.95 kg/m2 JOCELYN Strong LPN [facility] Work Phone: 08-30-2010 15:18-0500 Body Temperature 98.2 [degF] JOCELYN Strong LPN [facility] Work Phone: Comment on above: Method: Oral 08-30-2010 15:18-0500 Body weight 84.37 kg JOCELYN Strong LPN [facility] Work Phone: 08-30-2010 15:18-0500 BP Diastolic 74 mm[Hg] JOCELYN Strong LPN [facility] Work Phone: Comment on above: Patient Position: Sitting; Cuff Location : Left Arm; Cuff Size: Standard 08-30-2010 15:18-0500 BP Systolic 114 mm[Hg] JOCELYN Strong LPN [facility] Medicine Work Phone: Comment on above: Patient Position: Sitting; Cuff Location : Left Arm; Cuff Size: Standard 08-30-2010 15:18-0500 BSA (Body Surface Area) 1.92 m2 JOCELYN Strong LPN [facility] Work Phone: 08-30-2010 15:18-0500 Height 165.1 cm JOCELYN Strong LPN [facility] Work Phone: 08-30-2010 15:18-0500 Pulse (Heart Rate) 74 /min JOCELYN Strong LPN [facility] Medicine Work Phone: Comment on above: Pattern: Regular 08-30-2010 15:18-0500 Respiratory Rate 18 /min JOCELYN Strong LPN [facility] Medicine Work Phone: Comment on above: Pattern: Unlabored 08-30-2010 15:18-0500 Weight 84.37 kg Rachel Lo [facility] Work Phone: 01-15-2010 14:45-0400 Body Temperature 98.9 [degF] [facility]: 01-15-2010 14:45-0400 Body [facility] 84.37 [facility] Work [facility]: 01-15-2010 14:45-0400 BP Diastolic 76 mm[Hg] [facility] Work Phone: Comment on above: Patient Position: Sitting; Cuff Location : Left Arm; Cuff Size: Standard 01-15-2010 14:45-0400 BP Systolic 112 mm[Hg] [facility] Work Phone: Comment on above: Patient Position: Sitting; Cuff Location : Left Arm; Cuff Size: Standard 01-15-2010 14:45-0400 Pulse (Heart Rate) 80 /min [facility] Work Phone: Comment on above: Pattern: Regular 01-15-2010 14:45-0400 Respiratory Rate 18 /min [facility] Work Phone: Comment on above: Pattern: Unlabored 01-15-2010 14:45-0400 Weight 84.37 kg Rachel Lo [facility] Work Phone: 12-15-2009 14:58-0400 Body Temperature 98.2 [degF] Brooke Tillman [facility] Work Phone: 12-15-2009 14:58-0400 BP Diastolic 72 mm[Hg] Brooke Tillman [facility] Work Phone: Comment on above: Patient Position: Sitting; Cuff Location : Left Arm; Cuff Size: Large 12-15-2009 14:58-0400 BP Systolic 110 mm[Hg] Brooke Tillman [facility] Work Phone: Comment on above: Patient Position: Sitting; Cuff Location : Left Arm; Cuff Size: Large 12-15-2009 14:58-0400 Pulse (Heart Rate) 112 /min Brooke Tillman [facility] Work Phone: Comment on above: Pattern: Regular 12-15-2009 14:58-0400 Respiratory Rate 18 /min Brooke Tillman [facility] Work Phone: Comment on above: Pattern: Unlabored 10-22-2009 14:46-0500 BMI (Body Mass Index) 30.45 kg/m2 Natty Jaramillo LPN [facility] Work Phone: 10-22-2009 14:46-0500 Body Temperature 97.9 [degF] Natty Jaramillo LPN [facility] Work Phone: Comment on above: Method: Oral 10-22-2009 14:46-0500 Body weight 83.01 kg Natty Jaramillo LPN [facility] Work Phone: 10-22-2009 14:46-0500 BP Diastolic 72 mm[Hg] Natty Jaramillo LPN [facility] Work Phone: Comment on above: Patient Position: Sitting; Cuff Location : Left Arm; Cuff Size: Standard 10-22-2009 14:46-0500 BP Systolic 124 mm[Hg] Natty Jaramillo LPN [facility] Work Phone: Comment on above: Patient Position: Sitting; Cuff Location : Left Arm; Cuff Size: Standard 10-22-2009 14:46-0500 BSA (Body Surface Area) 1.9 m2 Natty Jaramillo LPN [facility] Work Phone: 10-22-2009 14:46-0500 Height 165.1 cm Natty Jaramillo LPN [facility] Work Phone: 10-22-2009 14:46-0500 Pulse (Heart Rate) 92 /min Natty Jaramillo LPN [facility] Work Phone: Comment on above: Pattern: Regular 10-22-2009 14:46-0500 Pulse Oximetry 98 % Rachel Teresita [facility] Work Phone: Comment on above: Room air 10-22-2009 14:46-0500 Respiratory Rate 17 /min Natty Jaramillo LPN [facility] Work Phone: Comment on above: Pattern: Unlabored 10-22-2009 14:46-0500 SaO2% (BldA) [Mass fraction] 98 % Natty Jaramillo LPN [facility]; [facility] Work Phone: Comment on above: Room air 10-22-2009 14:46-0500 Weight 83.01 kg Rachel Lo [facility] Work Phone: 10-06-2009 11:46-0500 BMI (Body Mass Index) 30.45 kg/m2 Natty Jaramillo LPN [facility] Work Phone: 10-06-2009 11:46-0500 Body Temperature 98.1 [degF] Natty Jaramillo LPN [facility] Work Phone: Comment on above: Method: Oral 10-06-2009 11:46-0500 Body weight 83.01 kg Natty Jaramillo LPN [facility] Work Phone: 10-06-2009 11:46-0500 BP Diastolic 78 mm[Hg] Natty Jaramillo LPN [facility] Work Phone: Comment on above: Patient Position: Sitting; Cuff Location : Left Arm; Cuff Size: Standard 10-06-2009 11:46-0500 BP Systolic 134 mm[Hg] Natty Jaramillo LPN [facility] Work Phone: Comment on above: Patient Position: Sitting; Cuff Location : Left Arm; Cuff Size: Standard 10-06-2009 11:46-0500 BSA (Body Surface Area) 1.9 m2 Natty Jaramillo LPN [facility] Work Phone: 10-06-2009 11:46-0500 Height 165.1 cm Natty Jaramillo LPN [facility] Work Phone: 10-06-2009 11:46-0500 Pulse (Heart Rate) 102 /min Natty Jaramillo LPN [facility] Work Phone: Comment on above: Pattern: Regular 10-06-2009 11:46-0500 Pulse Oximetry 98 % Rachel Lo [facility] Work Phone: Comment on above: Room air 10-06-2009 11:46-0500 Respiratory Rate 18 /min Natty Jaramillo LPN [facility] Work Phone: Comment on above: Pattern: Unlabored 10-06-2009 11:46-0500 SaO2% (BldA) [Mass fraction] 98 % Natty Jaramillo LPN [facility]; [facility] Work Phone: Comment on above: Room air 10-06-2009 11:46-0500 Weight 83.01 kg Rachel Lo [facility] Work Phone: 07-01-2009 15:05-0500 BMI (Body Mass Index) 30.45 kg/m2 Jenny Rizvi RN [facility] Work Phone: 07-01-2009 15:05-0500 Body Temperature 98.1 [degF] Jenny Rizvi RN [facility] Work Phone: Comment on above: Method: Oral 07-01-2009 15:05-0500 Body weight 83.01 kg Jenny Rizvi RN [facility] Work Phone: 07-01-2009 15:05-0500 BP Diastolic 68 mm[Hg] Jenny Rizvi RN [facility] Work Phone: Comment on above: Patient Position: Sitting; Cuff Location : Left Arm; Cuff Size: Large 07-01-2009 15:05-0500 BP Systolic 128 mm[Hg] Jenny Rizvi RN [facility] Work Phone: Comment on above: Patient Position: Sitting; Cuff Location : Left Arm; Cuff Size: Large 07-01-2009 15:05-0500 BSA (Body Surface Area) 1.9 m2 Jenny Rizvi RN [facility] Work Phone: 07-01-2009 15:05-0500 Head Circumference 0 cm Rachel Lo [facility] Work Phone: 07-01-2009 15:05-0500 Head Occipital-frontal circumference 0 cm Jenny Rizvi RN [facility]; [facility] Work Phone: 07-01-2009 15:05-0500 Height 165.1 cm Jenny Rizvi RN [facility] Work Phone: 07-01-2009 15:05-0500 Pulse (Heart Rate) 72 /min Jenny Rizvi RN [facility] Work Phone: Comment on above: Pattern: Regular 07-01-2009 15:05-0500 Respiratory Rate 20 /min Jenny Rizvi RN [facility] Work Phone: Comment on above: Pattern: Unlabored 07-01-2009 15:05-0500 Weight 83.01 kg Rachel Lo [facility] Work Phone: 04-02-2009 15:36-0400 BMI (Body Mass Index) 30.45 kg/m2 Debra Halea [employer] Work Phone: [facility] Work Phone: 04-02-2009 15:36-0400 Body weight 83.01 kg Debra Halea [employer] Work Phone: [facility] Work Phone: 04-02-2009 15:36-0400 BP Diastolic 70 mm[Hg] Debra Halea [employer] Work Phone: [facility] Work Phone: Comment on above: Patient Position: Supine; Cuff Location: Right Arm; Cuff Size: Standard 04-02-2009 15:36-0400 BP Systolic 112 mm[Hg] Debra Halea [employer] Work Phone: [facility] Work Phone: Comment on above: Patient Position: Supine; Cuff Location: Right Arm; Cuff Size: Standard 04-02-2009 15:36-0400 BSA (Body Surface Area) 1.9 m2 Debra Halea [employer] Work Phone: [facility] Work Phone: 04-02-2009 15:36-0400 Head Circumference 0 cm Rachel Lo [facility] Work Phone: 04-02-2009 15:36-0400 Head Occipital-frontal circumference 0 cm Debra Halea [employer] Work Phone: [facility]; [facility] Work Phone: 04-02-2009 15:36-0400 Height 165.1 cm Debra Halea [employer] Work Phone: [facility] Work Phone: 04-02-2009 15:36-0400 Pulse (Heart Rate) 80 /min Debra Simms [employer] Work Phone: [facility] Work Phone: Comment on above: Pattern: Regular 04-02-2009 15:36-0400 Respiratory Rate 16 /min Debra Simms [employer] Work Phone: [facility] Work Phone: Comment on above: Pattern: Unlabored 04-02-2009 15:36-0400 Weight 83.01 kg Rachel Lo [facility] Work Phone: 11-27-2008 11:08-0400 BMI (Body Mass Index) 29.76 kg/m2 Dyan Guerrero [facility] Work Phone: 11-27-2008 11:08-0400 Body Temperature 98.1 [degF] Dyan [facility] Work Phone: Comment on above: Method: Oral 11-27-2008 11:08-0400 Body weight 86.18 kg Dyan [facility] Work Phone: 11-27-2008 11:08-0400 BP Diastolic 80 mm[Hg] Dyan [facility] Work Phone: Comment on above: Patient Position: Sitting; Cuff Location : Left Arm; Cuff Size: Standard 11-27-2008 11:08-0400 BP Systolic 122 mm[Hg] Dyan [facility] Work Phone: Comment on above: Patient Position: Sitting; Cuff Location : Left Arm; Cuff Size: Standard 11-27-2008 11:08-0400 BSA (Body Surface Area) 1.98 m2 Dyan [facility] Work Phone: 11-27-2008 11:08-0400 Head Circumference 0 cm Rachel Lo [facility] Work Phone: 11-27-2008 11:08-0400 Head Occipital-frontal circumference 0 cm Dyan [facility]; [facility] Work Phone: 11-27-2008 11:08-0400 Height 170.18 cm [facility] Work Phone: 11-27-2008 11:08-0400 Pulse (Heart Rate) 85 /min Dyan [facility] Work Phone: Comment on above: Pattern: Regular 11-27-2008 11:08-0400 Respiratory Rate 18 /min Dyan [facility] Work Phone: Comment on above: Pattern: Unlabored 11-27-2008 11:08-0400 Weight 86.18 kg Rachel Lo [facility] Work Phone: 11-20-2008 15:50-0400 BMI (Body Mass Index) 29.76 kg/m2 Criselda Rodriguez [facility] Work Phone: 11-20-2008 15:50-0400 Body weight 86.18 kg Criselda [facility] Medicine Work Phone: 11-20-2008 15:50-0400 BP Diastolic 60 mm[Hg] [facility] Medicine Work Phone: Comment on above: Patient Position: Supine; Cuff Location: Left Arm; Cuff Size: Standard 11-20-2008 15:50-0400 BP Systolic 112 mm[Hg] Criselda [facility] Medicine Work Phone: Comment on above: Patient Position: Supine; Cuff Location: Left Arm; Cuff Size: Standard 11-20-2008 15:50-0400 BSA (Body Surface Area) 1.98 m2 Criselda [facility] Medicine Work Phone: 11-20-2008 15:50-0400 Head Circumference 0 cm Rachel Lo [facility] Work Phone: 11-20-2008 15:50-0400 Head Occipital-frontal circumference 0 cm Criselda [facility]; [facility] Work Phone: 11-20-2008 15:50-0400 Height 170.18 cm [facility] Medicine Work Phone: 11-20-2008 15:50-0400 Pulse (Heart Rate) 80 /min Criselda Horn [facility] Work Phone: Comment on above: Pattern: Regular 11-20-2008 15:50-0400 Respiratory Rate 16 /min Criselda Rodriguez [facility] Work Phone: Comment on above: Pattern: Unlabored 11-20-2008 15:50-0400 Weight 86.18 kg Rachel Lo [facility] Medicine Work Phone: 09-29-2008 16:34-0500 Body Temperature 99 [degF] JOCELYN Strong [facility] Work Phone: Comment on above: Method: Oral 09-29-2008 16:34-0500 Body weight 0 kg JOCELYN Strong [facility] Internal Medicine Work Phone: 09-29-2008 16:34-0500 BP Diastolic 78 mm[Hg] JOCELYN Strong [facility] Work Phone: Comment on above: Patient Position: Sitting; Cuff Location : Left Arm; Cuff Size: Standard 09-29-2008 16:34-0500 BP Systolic 118 mm[Hg] JOCELYN Strong [facility] Work Phone: Comment on above: Patient Position: Sitting; Cuff Location : Left Arm; Cuff Size: Standard 09-29-2008 16:34-0500 Head Circumference 0 cm Rachel Lo [facility] Internal Medicine Work Phone: 09-29-2008 16:34-0500 Head Occipital-frontal circumference 0 cm JOCELYN Strong [facility] Internal Medicine; [facility] Work Phone: 09-29-2008 16:34-0500 Height 0 cm JOCELYN Strong [facility] Work Phone: 09-29-2008 16:34-0500 Pulse (Heart Rate) 70 /min JOCELYN Strong [facility] Internal Medicine Work Phone: Comment on above: Pattern: Regular 09-29-2008 16:34-0500 Respiratory Rate 16 /min JOCELYN Strong DYNO TECHNICIAN [facility] Work Phone: Comment on above: Pattern: Unlabored 09-29-2008 16:34-0500 Weight 0 kg Rachel Lo [facility] Internal Medicine Work Phone: 09-02-2008 16:05-0500 Body Temperature 98.2 [degF] Dyan [facility] Internal Medicine Work Phone: Comment on above: Method: Oral 09-02-2008 16:05-0500 Body weight 0 kg Dyan [facility] Internal Medicine Work Phone: 09-02-2008 16:05-0500 BP Diastolic 80 mm[Hg] [facility] Internal Medicine Work Phone: Comment on above: Patient Position: Sitting; Cuff Location : Left Arm; Cuff Size: Standard 09-02-2008 16:05-0500 BP Systolic 128 mm[Hg] Dyan [facility] Internal Medicine Work Phone: Comment on above: Patient Position: Sitting; Cuff Location : Left Arm; Cuff Size: Standard 09-02-2008 16:05-0500 Head Circumference 0 cm Rachel Lo [facility] Internal Medicine Work Phone: 09-02-2008 16:05-0500 Head Occipital-frontal circumference 0 cm Dyan [facility] Internal Medicine; [facility] Work Phone: 09-02-2008 16:05-0500 Height 0 cm Dyan [facility] Internal Medicine Work Phone: 09-02-2008 16:05-0500 Pulse (Heart Rate) 68 /min Dyan [facility] Internal Medicine Work Phone: Comment on above: Pattern: Regular 09-02-2008 16:05-0500 Respiratory Rate 18 /min Dyan [facility] Internal Medicine Work Phone: Comment on above: Pattern: Unlabored 09-02-2008 16:05-0500 Weight 0 kg Rachel Lo [facility] Work Phone: 05-05-2008 14:07-0400 Body Temperature 97.9 [degF] JOCELYN Strong LPN [facility] Work Phone: Comment on above: Method: Oral 05-05-2008 14:07-0400 Body weight 0 kg JOCELYN Strong LPN [facility] Work Phone: 05-05-2008 14:07-0400 BP Diastolic 78 mm[Hg] JOCELYN Strong LPN [facility] Work Phone: Comment on above: Patient Position: Sitting; Cuff Location : Left Arm; Cuff Size: Standard 05-05-2008 14:07-0400 BP Systolic 120 mm[Hg] JOCELYN Strong DYNO TECHNICIAN [facility] Work Phone: Comment on above: Patient Position: Sitting; Cuff Location : Left Arm; Cuff Size: Standard 05-05-2008 14:07-0400 Head Circumference 0 cm Rachel Lo [facility] Internal Medicine Work Phone: 05-05-2008 14:07-0400 Head Occipital-frontal circumference 0 cm JOCELYN Strong DYNO TECHNICIAN [facility] Internal [facility]; [facility] Work Phone: 05-05-2008 14:07-0400 Height 0 cm JOCELYN Strong [facility] Work Phone: 05-05-2008 14:07-0400 Pulse (Heart Rate) 72 /min JOCELYN Strong [facility] Work Phone: Comment on above: Pattern: Regular 05-05-2008 14:07-0400 Respiratory Rate 16 /min JOCELYN Strong [facility] Work Phone: Comment on above: Pattern: Unlabored 05-05-2008 14:07-0400 Weight 0 kg Rachel Lo [facility] Internal Medicine Work Phone: 01-17-2008 15:44-0400 Body weight 0 kg Vidhi [facility] Internal Medicine Work Phone: 01-17-2008 15:44-0400 BP Diastolic 76 mm[Hg] [facility] Internal Medicine Work Phone: Comment on above: Patient Position: Sitting; Cuff Location : Left Arm; Cuff Size: Standard 01-17-2008 15:44-0400 BP Systolic 124 mm[Hg] Vidhi [facility] Internal Medicine Work Phone: Comment on above: Patient Position: Sitting; Cuff Location : Left Arm; Cuff Size: Standard 01-17-2008 15:44-0400 Head Circumference 0 cm Rachel Lo [facility] Internal Medicine Work Phone: 01-17-2008 15:44-0400 Head Occipital-frontal circumference 0 [facility] Work Phone: 01-17-2008 15:44-0400 Height 0 [facility] Work [facility]: 01-17-2008 15:44-0400 Pulse (Heart Rate) 82 /min [facility] Work [facility]: Comment on above: Pattern: Regular 01-17-2008 15:44-0400 Respiratory Rate 16 /min [facility] Work [facility]: Comment on above: Pattern: Unlabored 01-17-2008 15:44-0400 Weight 0 kg Rachel Lo [facility] Internal [facility] Work Phone: 05-29-2007 12:02-0400 Body Temperature 98.1 [degF] Natty Jaramillo [facility] Work Phone: Comment on above: Method: Oral 05-29-2007 12:02-0400 Body weight 0 kg Natty Jaramillo [facility] Work Phone: 05-29-2007 12:02-0400 BP Diastolic 72 mm[Hg] Natty Jaramillo [facility] Work Phone: Comment on above: Patient Position: Sitting; Cuff Location : Left Arm; Cuff Size: Standard 05-29-2007 12:02-0400 BP Systolic 128 mm[Hg] Natty Jaramillo [facility] Work Phone: Comment on above: Patient Position: Sitting; Cuff Location : Left Arm; Cuff Size: Standard 05-29-2007 12:02-0400 Head Circumference 0 cm Rachel Lo [facility] Internal Medicine Work Phone: 05-29-2007 12:02-0400 Head Occipital-frontal circumference 0 cm Natty Jaramillo [facility] Internal Medicine; [facility] Work Phone: 05-29-2007 12:02-0400 Height 0 cm Natty Jaramillo LPN [facility] Work Phone: 05-29-2007 12:02-0400 Pulse (Heart Rate) 82 /min Natty Jaramillo LPN [facility] Work Phone: Comment on above: Pattern: Regular 05-29-2007 12:02-0400 Respiratory Rate 21 /min Natty Jaramillo LPN [facility] Work Phone: Comment on above: Pattern: Unlabored 05-29-2007 12:02-0400 Weight 0 kg Rachel Lo [facility] Medicine Work Phone: 04-30-2007 16:54-0400 Body Temperature 98.6 [degF] JOCELYN Strong DYNO TECHNICIAN [facility] Work Phone: Comment on above: Method: Oral 04-30-2007 16:54-0400 Body weight 0 kg JOCELYN Strong LPN [facility] Work Phone: 04-30-2007 16:54-0400 BP Diastolic 74 mm[Hg] JOCELYN Strong DYNO TECHNICIAN [facility] Work Phone: Comment on above: Patient Position: Sitting; Cuff Location : Left Arm; Cuff Size: Standard 04-30-2007 16:54-0400 BP Systolic 118 mm[Hg] JOCELYN Strong DYNO TECHNICIAN [facility] Work Phone: Comment on above: Patient Position: Sitting; Cuff Location : Left Arm; Cuff Size: Standard 04-30-2007 16:54-0400 Head Circumference 0 cm Rachel Lo [facility] Work Phone: 04-30-2007 16:54-0400 Head Occipital-frontal circumference 0 cm JOCELYN Strong DYNO TECHNICIAN [facility]; [facility] Work Phone: 04-30-2007 16:54-0400 Height 0 cm JOCELYN Strong LPN [facility] Work Phone: 04-30-2007 16:54-0400 Pulse (Heart Rate) 76 /min JOCELYN Strong DYNO TECHNICIAN [facility] Work Phone: Comment on above: Pattern: Regular 04-30-2007 16:54-0400 Respiratory Rate 20 /min JOCELYN Strong LPN [facility] Work Phone: Comment on above: Pattern: Unlabored 04-30-2007 16:54-0400 Weight 0 kg Rachel Lo [facility] Work Phone: 02-13-2007 16:07-0400 Body Temperature 97.6 [degF] JOCELYN Strong LPN [facility] Work Phone: Comment on above: Method: Oral 02-13-2007 16:07-0400 Body weight 0 kg JOCELYN Strong LPN [facility] Work Phone: 02-13-2007 16:07-0400 BP Diastolic 74 mm[Hg] JOCELYN Strong LPN [facility] Work Phone: Comment on above: Patient Position: Sitting; Cuff Location : Left Arm; Cuff Size: Standard 02-13-2007 16:07-0400 BP Systolic 110 mm[Hg] JOCELYN Strong LPN [facility] Work Phone: Comment on above: Patient Position: Sitting; Cuff Location : Left Arm; Cuff Size: Standard 02-13-2007 16:07-0400 Head Circumference 0 cm Rachel Lo [facility] Work Phone: 02-13-2007 16:07-0400 Head Occipital-frontal circumference 0 cm JOCELYN Strong LPN [facility]; [facility] Work Phone: 02-13-2007 16:07-0400 Height 0 cm JOCELYN Strong LPN [facility] Work Phone: 02-13-2007 16:07-0400 Pulse (Heart Rate) 80 /min JOCELYN Strong LPN [facility] Work Phone: Comment on above: Pattern: Regular 02-13-2007 16:07-0400 Respiratory Rate 20 /min JOCELYN Strong LPN [facility] Work Phone: Comment on above: Pattern: Unlabored 02-13-2007 16:07-0400 Weight 0 kg Rachel Lo [facility] Work Phone: 01-30-2007 16:02-0400 Body Temperature 98.8 [degF] JOCELYN Strong LPN [facility] Work Phone: Comment on above: Method: Oral 01-30-2007 16:02-0400 Body weight 0 kg JOCELYN Strong LPN [facility] Work Phone: 01-30-2007 16:02-0400 BP Diastolic 68 mm[Hg] JOCELYN Strong LPN [facility] Work Phone: Comment on above: Patient Position: Sitting; Cuff Location : Left Arm; Cuff Size: Standard 01-30-2007 16:02-0400 BP Systolic 100 mm[Hg] JOCELYN Strong LPN [facility] Work Phone: Comment on above: Patient Position: Sitting; Cuff Location : Left Arm; Cuff Size: Standard 01-30-2007 16:02-0400 Head Circumference 0 cm Rachel Lo [facility] Work Phone: 01-30-2007 16:02-0400 Head Occipital-frontal circumference 0 cm JOCELYN Strong LPN [facility]; [facility] Work Phone: 01-30-2007 16:02-0400 Height 0 cm JOCELYN Strong LPN [facility] Work Phone: 01-30-2007 16:02-0400 Pulse (Heart Rate) 80 /min JOCELYN Strong LPN [facility] Work Phone: Comment on above: Pattern: Regular 01-30-2007 16:02-0400 Respiratory Rate 20 /min JOCELYN Strong LPN [facility] Work Phone: Comment on above: Pattern: Unlabored 01-30-2007 16:02-0400 Weight 0 kg Rachel Lo [facility] Medicine Work Phone: 12-26-2006 15:38-0400 Body weight 0 kg Natty Jaramillo [facility] Work Phone: 12-26-2006 15:38-0400 BP Diastolic 62 mm[Hg] Natty Jaramillo [facility] Work Phone: Comment on above: Patient Position: Sitting; Cuff Location : Left Arm; Cuff Size: Standard 12-26-2006 15:38-0400 BP Systolic 104 mm[Hg] Natty Jaramillo LPN [facility] Internal Medicine Work Phone: Comment on above: Patient Position: Sitting; Cuff Location : Left Arm; Cuff Size: Standard 12-26-2006 15:38-0400 Head Circumference 0 cm Rachel Lo [facility] Internal Medicine Work Phone: 12-26-2006 15:38-0400 Head Occipital-frontal circumference 0 cm Natty Jaramillo DYNO TECHNICIAN [facility]; [facility] Work Phone: 12-26-2006 15:38-0400 Height 0 cm Natty Jaramillo DYNO TECHNICIAN [facility] Work Phone: 12-26-2006 15:38-0400 Pulse (Heart Rate) 76 /min Natty Jaramillo [facility] Work Phone: Comment on above: Pattern: Regular 12-26-2006 15:38-0400 Respiratory Rate 16 /min Natty Jaramillo LPN [facility] Work Phone: Comment on above: Pattern: Unlabored 12-26-2006 15:38-0400 Weight 0 kg Rachel Lo [facility] Work Phone: 11-10-2006 14:16-0400 Body Temperature 99 [degF] Rachel Lo [facility] Work Phone: Comment on above: Method: Undefined 11-10-2006 14:16-0400 Body weight 0 kg Rachel Lo [facility] Work Phone: 11-10-2006 14:16-0400 BP Diastolic 60 mm[Hg] Rachel Lo [facility] Work Phone: Comment on above: Patient Position: Undefined; Cuff Locati on: Undefined; Cuff Size: Undefined 11-10-2006 14:16-0400 BP Systolic 108 mm[Hg] Rachel Lo [facility] Work Phone: Comment on above: Patient Position: Undefined; Cuff Locati on: Undefined; Cuff Size: Undefined 11-10-2006 14:16-0400 Head Circumference 0 cm Rachel Lo [facility] Work Phone: 11-10-2006 14:16-0400 Head Occipital-frontal circumference 0 cm Rachel Lo DO Work Phone: [facility]; [facility] Work Phone: 11-10-2006 14:16-0400 Height 0 cm Rachel Lo [facility] Work Phone: 11-10-2006 14:16-0400 Pulse (Heart Rate) 78 /min Rachel Lo [facility] Work Phone: Comment on above: Pattern: Regular 11-10-2006 14:16-0400 Respiratory Rate 16 /min Rachel Lo [facility] Work Phone: Comment on above: Pattern: Undefined 11-10-2006 14:16-0400 Weight 0 kg Rachel Lo [facility] Work Phone: 09-12-2006 14:00-0500 Body weight Measured 182 {lbs} Rachel Lo [facility] Internal Medicine Work Phone: 05-17-2006 15:08-0400 Body Temperature 98.6 [degF] Rachel Lo [facility] Work Phone: Comment on above: Method: Undefined 05-17-2006 15:08-0400 Body weight 0 kg Rachel Lo [facility] Work Phone: 05-17-2006 15:08-0400 BP Diastolic 68 mm[Hg] Rachel Lo [facility] Work Phone: Comment on above: Patient Position: Sitting; Cuff Location : Left Arm; Cuff Size: Standard 05-17-2006 15:08-0400 BP Systolic 118 mm[Hg] Rachel Lo [facility] Internal [facility] Work Phone: Comment on above: Patient Position: Sitting; Cuff Location : Left Arm; Cuff Size: Standard 05-17-2006 15:08-0400 Head Circumference 0 cm Rachel Lo [facility] Work Phone: 05-17-2006 15:08-0400 Head Occipital-frontal circumference 0 cm Rachel Lo DO Work Phone: [facility]; [facility] Work Phone: 05-17-2006 15:08-0400 Height 0 cm Rachelmarvin Lo [facility] Work Phone: 05-17-2006 15:08-0400 Pulse (Heart Rate) 76 /min Rachel Lo [facility] Work Phone: Comment on above: Pattern: Regular 05-17-2006 15:08-0400 Respiratory Rate 16 /min Rachel Lo [facility] Work Phone: Comment on above: Pattern: Undefined 05-17-2006 15:08-0400 Weight 0 kg Rachel Lo [facility] Work Phone: Encounters Encounter Date Encounter Type Care Provider Facility Start: 04-11-2025 ambulatory Rachel Lo Facilit y:[facility] Start: 04-08-2025 ambulatory Rachel Lo Facilit y:[facility] Start: 03-31-2025 End: 03-31-[address] Rachel Lo DO -Laboratory Work Phone: Start: 03-31-2025 Registered [facility] -Laboratory Work Phone: Start: 03-31-2025 End: 03-31-[address] Rachel Lo DO Work Phone: -Laboratory Start: 03-31-2025 End: 03-31-2025 ambulatory Rachel Lo Facility:[facility] Start: 10-31-2024 End: 10-31-[address] Rachel Lo DO Work Phone: [facility] Work Phone: Start: 10-31-2024 End: 10-31-[address] Rachel Lo DO -Outpatient Breast Imaging Work Phone: Start: 10-31-2024 End: 10-31-2024 ambulatory Rachel Teresita Facility:[facility] Start: 05-01-2024 ambulatory Health Risk Assessment Facility:[facility] Start: 10-31-2023 End: 10-31-2023 ambulatory [facility] Work Phone: Start: 10-31-2023 End: 10-31-2023 Patient encounter procedure [facility]-Outpatient Breast Imaging Work Phone: Start: 04-28-2023 End: 04-28-2023 Patient encounter status Rachel Teresita DO Work Phone: [facility]; [facility] Work Phone: Start: 04-28-2023 End: 04-28-2023 Periodic preventive med est patient 40-64yrs Rachel Teresita DO Work Phone: [facility] Start: 02-27-2023 End: 02-27-2023 Office outpatient visit 10 minutes Rachel Teresita DO Work Phone: [facility] Start: 01-30-2023 End: 01-30-2023 Office outpatient visit 10 minutes Rachel Teresita DO Work Phone: [facility] Start: 01-19-2023 End: 01-19-2023 Office outpatient visit 10 minutes Rachel Teresita DO Work Phone: [facility] Start: 01-04-2023 End: 01-04-2023 Office outpatient visit 15 minutes Rachel Teresita DO Work Phone: [facility] Start: 12-15-2022 ambulatory Rachel Teresita DO [facility] Start: 12-15-2022 Review Rachel Fearo n DO Work Phone: [facility] Start: 12-15-2022 End: 12-15-2022 Office outpatient visit 10 minutes Rachel Teresita DO Work Phone: [facility] Start: 11-25-2022 End: 11-25-2022 Office outpatient visit 15 minutes Rachel Teresita DO Work Phone: [facility] Start: 11-25-2022 Review Rachel Fearo n DO Work Phone: [facility] Start: 11-11-2022 Review Rachel Fearo n DO Work Phone: [facility] Start: 11-11-2022 End: 11-11-2022 Office outpatient visit 10 minutes Rachel Teresita DO Work Phone: [facility] Start: 10-27-2022 End: 10-27-2022 ambulatory [facility] Work Phone: Start: 10-27-2022 End: 10-27-2022 Patient encounter procedure [facility]-Outpatient Breast Imaging Start: 10-25-2022 End: 10-25-2022 Annotation/Addendum Rachel Teresita DO Work Phone: [facility] Start: 05-09-2022 End: 05-09-2022 Patient encounter procedure Rachel Teresita DO Work Phone: [facility]; [facility] Work Phone: Start: 05-09-2022 End: 05-09-2022 Periodic preventive med est patient 40-64yrs Rachel Teresita DO Work Phone: [facility] Start: 05-06-2022 End: 05-06-2022 ambulatory [facility] Work Phone: Start: 05-06-2022 End: 05-06-2022 Patient encounter procedure [facility]-Laboratory Start: 05-06-2022 End: 05-06-2022 Phone Encounter Rachel Teresita DO Work Phone: [facility] Start: 05-06-2022 Registered Referred [facility] Start: 02-21-2022 End: 02-21-2022 Patient encounter status sohail Vargas [facility]; [facility] Work Phone: Start: 02-21-2022 End: 02-21-2022 Phone Encounter Rachel Teresita DO Work Phone: [facility] Start: 10-21-2021 End: 10-21-2021 Prescription Refill Rachel Lo DO Work Phone: [facility] Start: 09-15-2021 End: 09-15-2021 Discharged Recurring [facility], [facility] Start: 08-24-2021 End: 08-24-2021 Error Encounter Rachel Lo DO Work Phone: [facility] Start: 07-30-2021 End: 07-30-2021 Annotation/Addendum Rachel Lo DO Work Phone: [facility] Start: 04-27-2021 End: 04-27-2021 Emergency department patient visit [facility] [place] [id number] Start: 04-15-2021 End: 04-16-2021 Patient encounter status Rachel Lo DO Work Phone: [facility]; [facility] Work Phone: Start: 04-15-2021 End: 04-16-2021 Periodic preventive med est patient 40-64yrs Rachel Lo DO Work Phone: [facility] Start: 09-11-2020 End: 09-11-2020 Office outpatient visit 10 minutes Rachel Teresita [facility] Start: 09-07-2020 End: 09-07-2020 Office outpatient visit 15 minutes Rachel Teresita [facility] Start: 04-30-2020 End: 04-30-2020 Patient encounter procedure Rachel Lo DO Work Phone: [facility] Start: 04-30-2020 End: 04-30-2020 Periodic preventive med est patient 18-39 yrs Rachel Teresita [facility] Start: 01-20-2020 End: 01-20-2020 Phone Encounter Rachel Teresita [facility] Start: 12-27-2019 End: 12-27-2019 Office outpatient visit 15 minutes Rachel Lo [facility] Start: 12-26-2019 End: 12-26-2019 Phone Encounter Rachel Lo [facility] Start: 12-25-2019 End: 12-25-2019 Annotation/Addendum Rachel Lo [facility] Start: 12-24-2019 End: 12-24-2019 Office outpatient visit 15 minutes Rachel Teresita [facility] Start: 05-02-2019 End: 05-02-2019 Patient encounter status Rachel Lo DO Work Phone: [facility] Start: 05-02-2019 End: 05-02-2019 Periodic preventive med est patient 18-39 yrs Rachel Pateon [facility] Start: 02-21-2019 Review Rachelmarvin Lo [facility] Start: 02-21-2019 End: 02-21-2019 Phone Encounter Rachel Teresita [facility] Start: 02-21-2019 End: 02-21-2019 Office outpatient visit 15 minutes Rachel Lo [facility] Start: 12-24-2018 End: 12-27-2018 Office outpatient visit 15 minutes Rachel Teresita [facility] Start: 12-24-2018 Review Rachelirma Lo Compreh ens[facility] Start: 07-17-2018 End: 07-17-2018 Annotation/Addendum Rachel Lo [facility] Start: 07-17-2018 End: 07-17-2018 Office outpatient visit 15 minutes Rachel Teresita [facility] Start: 12-05-2017 End: 12-05-2017 Phone Encounter Rachelmarvin Pateon [facility] Start: 09-15-2017 End: 09-15-2017 Phone Encounter Rachelmarvin Pateon [facility] Start: 06-16-2017 End: 06-16-2017 Office outpatient visit 15 minutes Rachel Teresita [facility] Start: 04-19-2017 End: 04-19-2017 Patient encounter procedure Rachel Lo DO Work Phone: [facility] Start: 04-19-2017 End: 04-19-2017 Periodic preventive med est patient 18-39 yrs Rachel Teresita [facility] Start: 12-13-2016 End: 12-13-2016 Office outpatient visit 15 minutes Rachel Lo [facility] Start: 05-02-2016 End: 05-02-2016 Periodic preventive med est patient 18-39 yrs Rachel Teresita [facility] Start: 05-02-2016 End: 05-02-2016 Physical examination Rachel Lo DO Work Phone: [facility] Start: 07-03-2015 End: 07-03-2015 Office outpatient visit 15 minutes Rachel Pateon [facility] Start: 05-05-2015 End: 05-05-2015 Patient encounter procedure Rachel Lo DO Work Phone: [facility] Start: 05-05-2015 End: 05-05-2015 Periodic preventive med est patient 18-39 yrs Rachel Pateon [facility] Start: 08-06-2014 End: 08-06-2014 Office outpatient visit 15 minutes Rachel Teresita [facility] Start: 05-26-2014 End: 05-26-2014 Office outpatient visit 15 minutes Rachelmarvin Pateon [facility] Start: 05-14-2014 End: 05-14-2014 Patient encounter procedure Rachel Lo DO Work Phone: [facility] Start: 05-14-2014 End: 05-14-2014 Periodic preventive med est patient 18-39 yrs Rachel Pateon [facility] Start: 03-04-2014 End: 03-04-2014 Office outpatient visit 15 minutes Rachel Teresita [facility] Start: 01-23-2014 End: 01-23-2014 Patient encounter procedure Rachel Teresita [facility] Start: 01-13-2014 End: 01-13-2014 Patient encounter procedure Rachel Lo [facility] Start: 07-25-2013 End: 07-25-2013 Patient encounter procedure Rachel Lo [facility] Start: 07-04-2013 End: 07-04-2013 Patient encounter procedure Rachel Teresita [facility] Start: 06-20-2013 End: 06-20-2013 Patient encounter procedure Rachel Teresita [facility] Start: 05-24-2013 End: 05-24-2013 Office outpatient visit 25 minutes Rachel Teresita [facility] Start: 05-20-2013 End: 05-20-2013 Patient encounter procedure Rachel Lo [facility] Start: 05-02-2013 End: 05-02-2013 Patient encounter procedure Rachel Lo [facility] Start: 06-28-2012 End: 06-28-2012 Patient encounter procedure Rachel Lo [facility] Start: 05-25-2012 End: 05-25-2012 Office outpatient visit 15 minutes [facility] Start: 04-23-2012 End: 04-23-2012 Patient encounter procedure Rachel Paterip [facility] Start: 03-01-2012 End: 03-01-2012 Patient encounter procedure Rachel Lo [facility] Start: 01-06-2012 End: 01-06-2012 Phone Encounter Rachel Teresitarip [facility] Start: 01-04-2012 End: 01-04-2012 Patient encounter procedure Rachelmarvin Pateon [facility] Start: 09-05-2011 End: 09-05-2011 Patient encounter procedure Rachelmarvin Pateon [facility] Start: 01-28-2011 End: 01-28-2011 Patient encounter procedure Rachelmarvin Pateon [facility] Start: 11-11-2010 End: 11-11-2010 Office outpatient visit 25 minutes Rachel Teresita [facility] Start: 08-30-2010 End: 08-30-2010 Patient encounter procedure Rachel Teresita [facility] Start: 01-15-2010 End: 01-15-2010 Office outpatient visit 15 minutes Rachel Lo [facility] Start: 12-15-2009 End: 12-15-2009 Patient encounter procedure Rachel Teresita [facility] Start: 10-22-2009 End: 10-22-2009 Office outpatient visit 25 minutes Rachel Lo [facility] Start: 10-09-2009 End: 10-09-2009 Annotation/Addendum Rachel Lo [facility] Start: 10-06-2009 End: 10-06-2009 Office outpatient visit 15 minutes Rachel Lo [facility] Start: 10-01-2009 End: 10-01-2009 Phone Encounter Rachel Lo [facility] Start: 07-01-2009 End: 07-01-2009 Patient encounter procedure Rachel [facility] Start: 04-02-2009 End: 04-02-2009 Office outpatient visit 15 minutes Rachel Lo [facility] Start: 11-27-2008 End: 11-27-2008 Office outpatient visit 15 minutes Rachel Lo [facility] Start: 11-20-2008 End: 11-20-2008 Patient encounter procedure Rachel Lo [facility] Start: 09-29-2008 End: 09-29-2008 Patient encounter procedure Rachel Lo [facility] Start: 09-02-2008 End: 09-02-2008 Patient encounter procedure Rachel Lo [facility] Start: 05-05-2008 End: 05-05-2008 Patient encounter procedure Rachel Lo [facility] Start: 01-17-2008 End: 01-17-2008 Office outpatient visit 25 minutes Rachelmarvin Lo [facility] Start: 05-29-2007 End: 05-29-2007 Office outpatient visit 25 minutes Rachelmarvin Lo [facility] Start: 04-30-2007 End: 04-30-2007 Office outpatient visit 15 minutes Rachelmarvin Lo [facility] Start: 02-13-2007 End: 02-13-2007 Office outpatient visit 10 minutes Rachelirma Lo [facility] Start: 01-30-2007 End: 01-30-2007 Patient encounter procedure Rachel Lo [facility] Start: 12-26-2006 End: 12-26-2006 Patient encounter procedure Rachel Lo [facility] Start: 11-10-2006 End: 11-10-2006 Office outpatient visit 15 minutes Rachelmarvin Lo [facility] Start: 05-17-2006 End: 05-17-2006 Patient encounter procedure Rachel Lo [facility] Start: 05-16-2006 End: 05-16-2006 Historical Summary Rachel Teresita [facility] Patient encounter procedure Laisha Chin VP CARE MANAGEMENT [facility]; [facility] Work Phone: Patient encounter procedure Jenny Rizvi RN [facility]; [facility] Work Phone: Patient encounter procedure Shiraz Gray LPN [facility]; [facility] Work Phone: Patient encounter procedure Cara Arteaga LPN [facility]; [facility] Work Phone: Patient encounter procedure Alissa Cummings CMA [facility]; [facility] Work Phone: End: 11-25-2022 Patient encounter procedure Yareli Cleary LPN [facility]; [facility] Work Phone: Patient encounter status Laisha Chin [facility]; [facility] Work Phone: Patient encounter status Cara Arteaga LPN [facility]; [facility] Work Phone: Patient encounter status Laisha Chin [facility]; [facility] Work Phone: Patient encounter status Alissa Cummings [facility]; [facility] Work Phone: Patient encounter status Alissa Cummings [facility]; [facility] Work Phone: Patient encounter status Lisa Padillainn [place] [facility]; [facility] Work Phone: Patient encounter status Lisa Padillainn [place] [facility]; [facility] Work Phone: Patient encounter status Steve Moise [facility]; [facility] Work Phone: Patient encounter status Yareli Cleary [facility]; [facility] Work Phone: Patient encounter status Steve Moise [facility]; [facility] Work Phone: Physical examination Milena Reyes [facility]; [facility] Work Phone: Procedures Date Procedure Procedure Detail Performing Clinician Start: 03-31-20[address] Rachel Lo DO Work Phone: Start: 03-31-2025 Urnls dip stick/tablet reagent auto microscopy Dr. Rachel Lo DO Work Phone: Start: 10-31-[address] Rachel acuña DO Work Phone: Start: 10-31-2023 Screening mammography Start: 11-02-2022 End: 11-02-2022 Urgent Care Visit Report Procedure Note: See Note; NOTES: [facility] [address] [place] [address] [address] [place] [address] OFFICE VISIT Date of Service: 11/02/22 MR#: [id number] Acct: [id number] Name: AFSHAN DON Rep #: [id number] : 1980 Provider: ARETHA Cordova Age/Sex: 42/F Location: [facility] Status: Signed Intake Vital Signs 11/02/22 12:02 BP 140/84 H Blood Pressure Location Lt brachial Position Sitting Respiration 17 Pulse 114 H Pulse Source Monitor Temp 98.6 F Temp Source Temporal Pulse Oximetry (%) 97 Oxygen Delivery Method room air Intake Visit Reasons: CONCERN FOR BRONCHITIS Chief Complaint: cough Is patient in pain?: No Allergies No Known Allergies Allergy (Verified 11/02/22 11:59) Medications sumatriptan succinate 50 mg tablet 50 mg PO .X1 PRN PRN migraines 02/06/17 [History Confirmed 11/02/22] etonogestrel 0.12 mg-ethinyl estradiol 0.015 mg/24 hr vaginal ring (NuvaRing) 1 vag ring vaginal Q4W 12/27/19 [History Confirmed 11/02/22] dupilumab 200 mg/1.14 mL subcutaneous syringe 200 mg SQ 01/22/20 [History Confirmed 11/02/22] loratadine 10 mg tablet 10 mg PO DAILY PRN Allergies 01/22/20 [History Confirmed 11/02/22] albuterol sulfate 90 mcg/actuation aerosol inhaler (ProAir HFA) 2 puff inhalation 6XD PRN shortness of breath or wheezing #8.5 grams 11/02/22 [Rx Confirmed 11/02/22] benzonatate 100 mg capsule 200 mg PO TID PRN cough #30 caps 11/02/22 [Rx Confirmed 11/02/22] methylprednisolone 4 mg tablets in a dose pack (Medrol (Berto)) 4 mg PO PER PKG DIR 6 days #21 tabs 11/02/22 [Rx Confirmed 11/02/22] PFSH Surgical History (Updated 08/24/21 @ 12:58 by Odalys Paul RN) S/P wisdom tooth extraction Family History (Updated 08/24/21 @ 12:58 by Odalys Paul RN) Other Diabetes Heart disease Hypertension Kidney disease Social History Smoking Status: Never smoker HPI HPI Chief Complaint: cough Details: AFSHAN DON, is a 42 F who presents to the office today for cough, congestion and shortness of breath for the past week. Patient states that her shortness of breath is after a coughing spell that is typically made better with her albuterol inhaler. She does however state that she has run out of her albuterol inhaler and is requesting a refill at this time. She describes her cough as a barky type cough and denies hemoptysis or difficulty breathing. No fever, chills, sweats. No nausea, vomiting, diarrhea. No loss of taste or smell. No other associated symptoms or alleviating/aggravating factors. ROS Const Constitutional: Positive for other (6 system ROS completed with pertinent findings in the HPI otherwise normal.) Exam Const General: cooperative and well developed HENMO Head: normal to inspection and atraumatic Ears: hearing grossly normal bilaterally Nose: nasal discharge clear Face and sinus: normal facial exam Mouth: oral mucosae normal Throat: abnormal tonsil bilaterally hypertrophy 1+ Resp Effort Inspection: normal respiratory effort and no audible wheezes Auscultation: Bilateral: Clear to Auscultation Cardio Palpation: normal PMI Rate: regular rate Rhythm: regular rhythm Neuro General: patient alert and CN's II-XI intact bilaterally Psych Appearance: grossly normal Mental Status: mental status grossly normal Coding Level of Care Code Off vis,new,level 3 Diagnoses Acute bronchitis J20.9 Assessment and Plan Assessment and Plan (1) Acute bronchitis: Status: Acute Medications: New methylprednisolone (Medrol (Breto)) 4 mg PO PER PKG DIR 6 days 21 tabs 0RF benzonatate 200 mg (2 x 100 mg) PO TID PRN 30 caps 0RF cough Refilled albuterol sulfate 90 mcg/actuation (ProAir HFA) 2 puffs inhalation 6XD PRN 8.5 grams 0RF shortness of breath or wheezing Plan Medrol Dosepak, benzonatate and albuterol as prescribed today. Encouraged to get plenty of rest, drink lots of clear liquids, and use Tylenol or Ibuprofen (unless contraindicated) for fever and comfort. Patient also educated on other symptomatic management techniques. To be seen in 7-10 days if no improvement; sooner if worsening of symptoms. Patient advised of potential red flags and when appropriate to report to the ED. Patient verbalized understanding and agreement with all the above. 11/02/22 1333 <Electronically signed by Vinny CARIAS> Date Vinny CARIAS Cosigner Signature: Date (if applicable) CC: Rachel Lo DO Work Phone: Start: 10-27-2022 Screening mammography Start: 10-27-2022 End: 10-27-2022 SCRN MAMM (CAD)W/MYRA BILAT Procedure Note: See Note; NOTES: [facility] Imaging Services [address] [place] [address] SCRN MAMM (CAD)W/MYRA BILAT MR#: [id number] Acct: [id number] Name: AFSHAN DON Rep #: [id number] : 1980 F 42 From: Yaya Patiño MD PCP: Dr. Rachel Lo, Status: REG CLI Study: SCRN MAMM (CAD)W/MYRA BILAT Date of Exam: 10/12 02/03 Exam# [id number] Ordering Dr: Rachel Lo DO MAMMOGRAPHY - BILATERAL SCREENING 3-D TOMOSYNTHESIS REASON FOR EXAM: Female, 42 years old. Routine screening PERTINENT HISTORY: Grandmother with breast cancer.. TECHNIQUE: 2-D mammograms and 3-D Tomosynthesis of the breast (s) were performed. CAD was performed. COMPARISON: 06/05/2018 FINDINGS: The breast composition is heterogeneously dense that can obscure small breast masses. Scattered benign calcifications are seen. No dense spiculated masses or suspicious microcalcifications are identified. No architectural distortion is identified. There is no skin thickening or retraction. There has been no significant change since the prior study. BI/SCRN MAMM (CAD)W/MYRA BILAT IMPRESSION: No mammographic signs of malignancy. Routine yearly mammograms recommended. ASSESSMENT CATEGORY: BIRADS Category 2: Benign. A letter regarding these results will be sent to the patient by the facility within 30 days. FOLLOW UP RECOMMENDATION: Yearly follow up mammogram recommended. (A) Approximately 10% of breast cancers are not detected by mammography. A normal mammogram should not delay biopsy of a clinically suspicious abnormality. Electronically Signed: Oz Patiño MD at 7:58 EDT , CC: Dr. Rachel Lo DO Cad Design Engineer: Signed Rachel Lo DO Work Phone: Start: 08-24-2021 End: 08-24-2021 Urgent Care Visit Report Comments: See Note; NOTES: [facility] [address] [place] [address] [address] [place] [address] OFFICE VISIT Date of Service: 08/24/21 MR#: [id number] Acct: [id number] Name: AFSHAN DON Rep #: [id number] : 1980 Provider: ARETHA Cordova Age/Sex: 40/F Location: [facility] Status: Signed Intake Vital Signs 08/24/21 12:51 Height 5 ft 5 in Weight: 230 lb BMI 38.2 BP 120/86 H Blood Pressure Location Lt brachial Position Sitting Respiration 16 Pulse 132 H Pulse Source Monitor Temp 97.9 F Temp Source Temporal Pulse Oximetry (%) 96 Oxygen Delivery Method room air Intake Visit Reasons: Cough Allergies No Known Allergies Allergy (Verified 08/24/21 12:57) Medications sumatriptan succinate 50 mg PO .X1 PRN PRN 02/06/17 [History Confirmed 08/24/21] etonogestrel 0.12 mg-ethinyl estradiol 0.015 mg/24 hr vaginal ring 1 vag ring VAGINAL Q4W 12/27/19 [History Confirmed 08/24/21] dupilumab 200 mg SQ 01/22/20 [History Confirmed 08/24/21] loratadine 10 mg PO DAILY PRN 01/22/20 [History Confirmed 08/24/21] albuterol sulfate 90 mcg/actuation aerosol inhaler 2 puff INHALATION 6XD PRN #8.5 g 08/24/21 [Rx Confirmed 08/24/21] azithromycin 250 mg tablet See Rx Instructions PO .COMPLEX #6 tab 08/24/21 [Rx Confirmed 08/24/21] methylprednisolone 4 mg tablets in a dose pack 4 mg PO PER PKG DIR 5 Days #21 tab 08/24/21 [Rx Confirmed 08/24/21] PFSH Surgical History (Updated 08/24/21 @ 12:58 by Odalys Paul RN) S/P wisdom tooth extraction Family History (Updated 08/24/21 @ 12:58 by Odalys Paul RN) Other Diabetes Heart disease Hypertension Kidney disease Social History Smoking Status: Never smoker HPI HPI Details: AFSHAN DON, is a 40 F who presents to the office today for cough, congestion and wheezing for the past week. Patient describes her cough as a barking type cough and states that has been interrupting her sleep. She denies fever, chills, sweats. No nausea, vomiting, diarrhea. No loss of taste or smell. No other associated symptoms or alleviating/aggravating factors. ROS Const Constitutional: Positive for other (6 system ROS completed with pertinent findings in the HPI otherwise normal.) Exam Const General: cooperative and well developed HENMT Head: normal to inspection and atraumatic Ears: hearing grossly normal bilaterally Nose: nasal discharge clear Face and sinus: normal facial exam Mouth: oral mucosae normal Throat: abnormal tonsil bilaterally hypertrophy 1+ Resp Effort Inspection: normal respiratory effort and no audible wheezes Auscultation: Bilateral: Clear to Auscultation Cardio Palpation: normal PMI Rate: regular rate Rhythm: regular rhythm Neuro General: patient alert and CN's II-XI intact bilaterally Psych Appearance: grossly normal Mental Status: mental status grossly normal Results POC SHERIF CoV-2 PCR POC SHERIF CoV-2 PCR Not Detected Last Edit by Odalys Paul RN on 08/24/21 13:10 Negative for Influenza A and B Coding Level of Care Code Off vis,new,level 3 Diagnoses Acute bronchitis J20.9 Assessment and Plan Assessment and Plan (1) Acute bronchitis: Status: Acute Plan - ARETHA Pat: Patient tested negative for COVID and influenza in the office today. Azithromycin, Medrol Dosepak and albuterol inhaler today. Encouraged to get plenty of rest, drink lots of clear liquids, and use Tylenol or Ibuprofen (unless contraindicated) for fever and comfort. Patient also educated on other symptomatic management techniques. To be seen in 7-10 days if no improvement; sooner if worsening of symptoms. Patient advised of potential red flags and when appropriate to report to the ED. Patient verbalized understanding and agreement with all the above. Plan Details Other Medications: New: azithromycin take 500 mg today (day 1), then 250 mg for 4 days (days 2-5) PO 6 tabs 0RF methylprednisolone (Medrol (Berto)) 4 mg PO PER PKG DIR 5 days 21 tabs 0RF albuterol sulfate 90 mcg/actuation (ProAir HFA) 2 puffs inhalation 6XD PRN 8.5 grams 0RF shortness of breath or wheezing Other Orders: Orders: POC Rapid SHERIF Cov-2 PCR Today R05.9 08/24/21 1322 <Electronically signed by Vinny CARIAS> Date Vinny CARIAS Cosigner Signature: Date (if applicable) CC: Rachel Lo DO Work Phone: Start: 07-29-2021 End: 07-29-2021 Discharge Summary Comments: See Note; NOTES: [facility] [address] [place] [address] Discharge Summary 07/29/21 1842 MR#: [id number] Acct: [id number] Name: AFSHAN DON Rep #: [id number] : 1980 40 From: Jennifer Pino PCP: Dr. Rachel Lo, DO Status:REG RCR Location: [facility] Discharge Summary: Discharge Date: 07/29/2021 Afshan was seen for a massotherapy evaluation on 09/02/2020 with the diagnosis of migraines. She was treated with two sessions of massage therapy consisting of deep pressure soft tissue techniques, myofascial release and trigger point compression to his cervical, thoracic, lower back and hips. Afshan responded well to the therapy by reporting decreased tension and pain throughout her neck, shoulders, lower back, lower extremities and hips. Her goals for therapy were met throughout the treatment sessions. At this time this patient is being discharged from our care at [facility] facility. 07/29/211908 <Electronically signed by Jennifer Pino > Cosigner Signature (if applicable): CC: Dr. Rachel Lo DO; Jennifer Pino Signed Rachel Lo DO Work Phone: Start: 10-08-2020 End: 10-08-2020 Orthopedic Visit Report Comments: See Note; NOTES: [facility] [address] [place] [address] OFFICE VISIT Date of Service: 10/08/20 MR#: [id number] Acct: [id number] Name: AFSHAN DON Rep #: [id number] : 1980 Provider: Dr. Aruna galloway DO Age/Sex: 39/F Location: [facility] Status: Signed Intake Intake Visit Reasons: RIGHT KNEE Chief Complaint: right knee Accompanied by: self Is patient in pain?: No Allergies No Known Allergies Allergy (Verified 04/21/20 10:08) Medications Sumatriptan Succinate [Imitrex] 50 mg PO .X1 PRN PRN 02/06/17 [History Confirmed 10/08/20] etonogestrel 0.12 mg-ethinyl estradiol 0.015 mg/24 hr vaginal ring 1 vag ring VAGINAL Q4W 12/27/19 [History Confirmed 10/08/20] Dupilumab [Dupixent] 200 mg SQ 01/22/20 [History Confirmed 10/08/20] Loratadine [Claritin] 10 mg PO DAILY PRN 01/22/20 [History Confirmed 10/08/20] [facility] Social History (Updated 10/08/20 @ 12:[address] Aruna Liu DO) Smoking Status: Never smoker HPI RIGHT KNEE: Details: Parts of this documentation were recorded by a scribe, this documentation accurately reflects the service provided and the decisions made by me, Dr. Aruna Liu DO 10/08/20 0840. AFSHAN DON is a 39 year old F here today for 8 month post op on right knee arthroscopy, acl reconstruction with allograft/arthrex graft link. SHe states that she is doing well. Denies any pain. Is able to do all of her normal activities without concern. She does have occasional stiffness but no major concerns. Denies numbness, tingling or other associated symptoms. ROS Const Denies frequent falls, Denies weakness Musc Reports system reviewed and no additional complaints, except as docu, Denies abnormal walking, Denies joint pain, Reports joint swelling, Denies muscle cramps, Denies muscle weakness, Denies numbness, Reports stiffness, Denies tingling Skin/Breast Reports system reviewed and no additional complaints, except as docu, Denies dry skin, Denies redness, Denies lesions, Denies new lesions, Denies non-healing lesions, Denies itching, Denies rash, Denies skin ulcer, Denies sores, Denies wounds Neuro Yes system reviewed and no additional complaints, except as docu, No abnormal walking, No frequent falls, No numbness, No restless legs, No tingling, No tremor(s), No weakness Ortho Exam General General: Yes no acute distress Neurologic: Yes alert, Yes oriented x3 Psychologic: Yes reasonable and appropriate Right Knee Skin/Wound: No erythema, No ecchymosis, No swelling Homans Sign: No Knee ROM: Yes ROM-Extension -20 to 0, Yes ROM-Flexion 0-140 Examination: No Med jt line tenderness, No Lat jt line tenderness Stability: NML: Anterior Drawer, NML: Posterior Drawer, NML: Valgus 30, NML: Varus 30 Assessment Plan Problems 1. Hx of reconstruction of anterior cruciate ligament tear Z98.890 Plan Patient educated that she is doing well and she can continue to work on strengthening. She should wear her knee brace if she will be doing a lot of twisting or pivoting. Follow up as needed or sooner if pain, swelling, numbness or associated symptoms, or concerns develop. All questions answered. Patient in agreement of plan. Coding Level of Care Code Off vis,est,level 2 Diagnoses Hx of reconstruction of anterior cruciate ligament tear Z98.890 10/08/20 1211 <Electronically signed by Aruna Liu DO> Date [facility]una Liu [facility] Signature: Date (if applicable) CC: Rachel Lo DO Work Phone: Start: 09-07-2020 End: 09-07-2020 Chest PA and Lateral Comments: See Note; NOTES: [facility] Imaging Services [address] [place] [address] Chest PA and Lateral MR#: [id number] Acct: [id number] Name: AFSHAN DON Rep #: [id number] : 1980 F 39 From: Chas mays MD PCP: Dr. Rachel Lo, Status: REG CLI Study: Chest PA and Lateral Date of Exam: 09/07/20 Exam# [id number] Ordering Dr: Debra Simms EMBOSSING PRESS OPERATOR MOLDED [employer] EMBOSSING PRESS OPERATOR [employer]-C STUDY: X-RAY CHEST REASON FOR EXAM: Female, 39 years old. Rash, swelling, and redness bilateral ankles over the last few days -- no injury TECHNIQUE: PA and lateral views of the chest. COMPARISON: None. FINDINGS: The lungs are clear and expanded. There is no demonstrated pleural abnormality. Normal size heart. Normal mediastinum and melanie. Normal visualized pulmonary arteries. Normal visualized aortic arch and descending thoracic aorta. There are mild degenerative changes of the visualized thoracic spine. Mild dextroscoliosis. Normal visualized ribs, clavicles, and shoulders. There is no demonstrated abnormality of the visualized soft tissue structures of the upper abdomen. RAD/Chest PA and Lateral IMPRESSION: No acute abnormality is seen. Electronically Signed: Chas Rooney MD at 15:41 EST , Service support , CC: MARY Simms; Dr. Rachel Lo DO Cad Design Engineer: Signed Debra Simms Work Phone: Start: 09-02-2020 End: 09-02-2020 Massage Therapy Evaluation Comments: See Note; NOTES: [facility] [facility]. [address] [place] [address] / REHABILITATION SERVICES INITIAL EVALUATION MR#: [id number] Acct: [id number] Name: AFSHAN DON Rep #: [id number] : 1980 39 From: Jennifer Pino Referring Dr.: Dr. Rachel Lo, Status: REG RCR Insurance: [facility] SELF PAY INSURANCE Massage Therapy Evaluation: Initial Evaluation Date: 09/02/2020 SUBJECTIVE: Afshan is a 39 year old female who was referred to the [facility] facility for a massotherapy evaluation by Dr. Lo with the diagnosis of migraines. She presents today with the symptoms of pain, stiffness and tension in the neck, mid back, low back, hips, and lower legs. Afshan reports having a past medical history of headaches and pain in her neck and back. She reports having minimal improvement with exercise and stretching over the last few months. OBJECTIVE: Upon observation Afshan has some posture issues with her head and shoulders forward from the neutral position in sitting and standing. After examination and palpation, I found Afshan to have high muscle tension with tenderness and myofascial restrictions in her sub occipitals, levator scapulae, trapezius, rhomboids, scalenes, and thoracic paraspinals. Her QL???s, lumbar paraspinals, piriformis, glute medius and minimus all were very tight with fascial restrictions, tender points and trigger points. The first treatment consisted of a one hour massage to her full body with myofascial release, muscle stripping, trigger point compression techniques, and cervical manual traction. ASSESSMENT: I feel that Afshan is a good candidate for massotherapy at this time. She had a favorable response to the first treatment with reduction in her muscle aches, pain and tension. She also had improv ement in her cervical flexibility and low back flexibility. PLAN: The plan of care was reviewed with the patient. The patient is to be seen on an as needed basis for a total of ten sessions with the recommendation of once every month for a one hour treatment. <Electronically signed by Jennifer Pino > 09/02/20 1645 CC: Dr. Rachel Lo DO KM Signed Rachel Lo Start: 07-16-2020 End: 07-16-2020 Orthopedic Visit Report Comments: See Note; NOTES: [facility] Orthopaedics Sports Medicine [address] [place] [address] OFFICE VISIT Date of Service: 07/16/20 MR#: [id number] Acct: [id number] Name: AFSHAN DON Rep #: [id number] : 1980 Provider: Dr. Aruna galloway DO Age/Sex: 39/F Location: [facility] Status: Signed Intake Intake Visit Reasons: RIGHT KNEE Chief Complaint: post-op right knee Allergies No Known Allergies Allergy (Verified 04/21/20 10:08) [facility] Social History (Updated 07/16/20 @ 16:[address] Aruna Liu DO) Smoking Status: Never smoker HPI RIGHT KNEE: Details: Parts of this documentation were recorded by a scribe, this documentation accurately reflects the service provided and the decisions made by me, Dr. Aruna Liu DO 07/16/20 0855. AFSHAN DON is a 39 year old F here today for her six month follow up. DOS: 01/29/2020, right knee arthroscopy, acl reconstruction with allograft/arthrex graft link. Patient denies any pain or discomfort. Denies numbness, stiffness and tingling. working on strengthening, etc. no acute issues. n oinstability. Ortho Exam Right Knee Date of Surgery: 01/29/20 Skin/Wound: Yes healed Homans Sign: No Knee ROM: Yes ROM-Extension -20 to 0, Yes ROM-Flexion 0-140, Yes ROM-Passive Extension -10 to 0, Yes ROM-Passive Flexion 0-140 Examination: No Med jt line tenderness Stability: NML: Anterior Drawer, NML: Kali Assessment Plan Problems 1. Orthopedic aftercare Z47.89 2. Pain of toe of right foot M79.674 3. S/P ACL repair Z98.890 Plan Based on examination, patient has healing well. Explained patient may have tarsal tunnel syndrome d/t c/o posterior great toe numbness and Advised to follow [facility]. All questions answered. Patient in agreement of plan. Follow up in six months or sooner if pain, swelling, numbness or associated symptoms, or concerns develop. Coding Level of Care Code Off vis,est,level 3 Diagnoses Orthopedic aftercare Z47.89 Pain of toe of right foot M79.674 ?Laterality: right S/P ACL repair Z98.890 07/16/20 1618 <Electronically signed by Aruna Liu DO> Date Aruna Lazcanoign Signature: Date (if applicable) CC: Rachel Lo Start: 04-21-2020 End: 04-21-2020 Orthopedic Visit Report Comments: See Note; NOTES: [facility] Orthopaedics Sports Medicine [facility] [address] [place] [address] OFFICE VISIT Date of Service: 04/21/20 MR#: [id number] Acct: [id number] Name: AFSHAN DON Rep #: [id number] : 1980 Provider: Dr. Aruna galloway DO Age/Sex: 39/F Location: [facility] Status: Signed Intake Intake Visit Reasons: R Knee Chief Complaint: post-op right knee Accompanied by: Self Is patient in pain?: No Allergies No Known Allergies Allergy (Verified 04/21/20 10:08) Medications Sumatriptan Succinate [Imitrex] 50 mg PO .X1 PRN PRN 02/06/17 [History Confirmed 01/22/20] etonogestrel 0.12 mg-ethinyl estradiol 0.015 mg/24 hr vaginal ring 1 vag ring VAGINAL Q4W 12/27/19 [History Confirmed 04/21/20] Dupilumab [Dupixent] 200 mg SQ 01/22/20 [History Confirmed 04/21/20] Loratadine [Claritin] 10 mg PO DAILY PRN 01/22/20 [History Confirmed 04/21/20] PFSH Social History (Updated 04/21/20 @ 11:[address] Aruna Liu, ) Smoking Status: Never smoker HPI R Knee: Details: Parts of this documentation were recorded by a scribe, this documentation accurately reflects the service provided and the decisions made by me, Dr. Aruna Liu, 04/21/20 1003. AFSHAN DON is a 39 year old F here today for post-op 12 weeks of right ACL reconstruction with allograft. Patient is still continuing with PT, once a week. As well as doing home exercises. Using Aleve prn, along with ice packs. Continues to wear her knee brace while at work and doing yard work. ROS Const Denies frequent falls, Denies weakness Musc Reports system reviewed and no additional complaints, except as docu, Denies abnormal walking, Denies joint pain, Reports joint swelling, Denies muscle cramps, Denies muscle weakness, Denies numbness, Reports stiffness, Denies tingling Skin/Breast Reports system reviewed and no additional complaints, except as docu, Denies dry skin, Denies redness, Denies lesions, Denies new lesions, Denies non-healing lesions, Denies itching, Denies rash, Denies skin ulcer, Denies sores, Denies wounds Neuro Yes system reviewed and no additional complaints, except as docu, No abnormal walking, No frequent falls, No numbness, No restless legs, No tingling, No tremor(s), No weakness Ortho Exam Right Knee Date of Surgery: 01/29/20 Skin/Wound: Yes healed, No erythema, No ecchymosis, No swelling Homans Sign: No Knee ROM: Yes ROM-Extension -20 to 0, No ROM-Flexion 0-140 (125) Stability: NML: Anterior Drawer, NML: Kali, NML: Posterior Drawer KNEE: no s/sx of infection Assessment Plan Problems 1. Orthopedic aftercare Z47.89 Plan Reviewed the evaluation from physical therapy, Advised to continue. Educated to perform leg curls and leg press. Wait three months to start jogging, avoid deep knee squatting and pivoting. Educated it may take a year and a half for the swelling to completely subside. If she is still having pain ad swelling at 5 months post op then she can have a steroid injection. Educated that she will be fitted for an ACL brace at around 6-9 months post op. If she is still lacking with flexion at 6 months post op then she can return to discuss manipulation under anesthesia. All questions answered. Patient in agreement of plan. Follow up in three months or sooner if pain, swelling, numbness or associated symptoms, or concerns develop. Plan Detail Follow Up 3 Months Coding Level of Care Code Global Post Op Diagnoses Orthopedic aftercare Z47.89 04/21/20 1118 <Electronically signed by Aruna Liu DO> Date Aruna Liu DO Cosigner Signature: Date (if applicable) CC: Rachel Lo Start: 04-21-2020 End: 04-21-2020 Re-Evaluation - PT (1) Comments: See Note; NOTES: [facility] [address] [place] [address]. [address] [place] [address] / REEVALUATION / MEDICARE RECERTIFICATION PHYSICAL THERAPY MR#: [id number] Acct: [id number] Name: AFSHAN DON Rep #: [id number] : 1980 39 From: Lew Lackey DPT Referring Dr.: Dr. Aruna Liu DO Status:R EG RCR Insurance: [facility] SELF PAY INSURANCE Dr. Aruna Liu, DO, It has been my pleasure to treat AFSHAN DON over the last 25 visits for R ACL repair DOS: 01/29/20. Please see the progress note below for an update on the physical therapy plan of care! Subjective: Pt. reports being 85% better overall. I still like I need to be stronger. Objective/Function: ROM: AAROM- 0-0-124dg, PROM 0-0-126deg. MMT 5/5 throughout, except 4+/5 hip abd. gait: good pattern, slight hip drop. stairs; normal, reciprical pattern, mild increase NW with descending. OPverall doing well. Plan Plan: Try descending stairs or step next visit. Goals Goal 1:: LTG: Pt. to be I with HEP. Goal Time Frame: 4-6 Weeks Goal Progress: Goal Met Goal 2:: STG: Pt. to have 0-0-120deg of R knee AROM. Goal Time Frame: 2 Weeks Goal Progress: Progressing Goal 3:: LTG: Pt. to have 0-0-135deg of R knee AROM Goal Time Frame: 2-4 Weeks Goal Progress: Progressing Goal 4:: STG: Pt. to have good quad set and complete SLR without extnsor lag x10 reps. NEW GOAL: 5/5 throughotu RLE strength. Goal Time Frame: 2-4 Weeks Goal Progress: Goal Met Goal 5:: STG: Pt. to have no pain at rest allowing her to sleep throughout the night without limitations. Goal Time Frame: 2 Weeks Goal Progress: Goal Met Goal 6:: LTG: PT. to have decreased edema in RLE with equal girth at patella and suprapatellar regions to LLE. Goal Time Frame: 2-4 Weeks Goal Progress: Progressing Anticipated Interventions Patient/Client Instruction: Educate patient on: Condition, Plan of Care, Risk Factors, Benefits of Fitness Program For the Purpose of:: To improve self management, To prevent re-injury, To improve ability to perform tasks related to life management, To improve tolerance to ADL's Therapeutic Exercise to Include: Strength training, Power training, Endurance training, Body mechanics, Postural training, Flexibilty training, Gait and locomotor training, Passive ROM, Active ROM, Dynamic Lumbar Stabilization For the Purpose of:: To decrease pain, To decrease swelling/inflammation, To increase ROM, To improve nutrient delivery to tissue, To increase oxygenation perfusion, To improve muscle performance and motor function, To improve ability to perform ADL's, To increase tolerance to activity/condition/position, To improve performance and independence with ADL's, To improve gait and locomotor functions, To improve health of tissue, To decrease soft tissue restriction, To increase flexibility/ROM Manual Therapy Techniques to Include: Massage, Mobilization, Passive ROM, Soft tissue mobilization For the Purpose of:: To decrease pain, To decrease swelling/inflammation, To increase ROM, To improve nutrient delivery to tissue, To improve muscle performance and motor function, To improve health of tissue, To decrease soft tissue restriction, To increase flexibility/ROM IF ES: Yes - NMES for quad activation Cryotherapy (ice pack, ice massage): Yes Vasopneumatic device: Yes For the Purpose of:: To decrease pain, To decrease swelling/inflammation, To increase ROM Please do not hesitate to contact me at [phone] by phone or if you have questions or concerns regarding this new plan of care! Sincerely, Lew Lackey DPT <Electronically signed by Lew Lackey DPT> 04/21/20 0934 CC: Dr. Aruna Liu DO; Dr. Rachel Lo DO CLS Signed For Medicare only, by signing this I certify the plan of care. Physicians Signature Date Rachel Lo Start: 04-01-2020 End: 04-01-2020 Re-Evaluation - PT (1) Comments: See Note; NOTES: [facility] Physical Therapy [facility] [address] [place] [address]. [address] [place] [address] / REEVALUATION / MEDICARE RECERTIFICATION PHYSICAL THERAPY MR#: [id number] Acct: [id number] Name: AFSHAN DON Rep #: [id number] : 1980 39 From: Lew Lackey DPT Referring Dr.: Dr. Aruna Liu, Status:R EG RCR Insurance: [facility] SELF PAY INSURANCE Dr. Aruna Liu, DO, It has been my pleasure to treat AFSHAN DON over the last 20 visits for R ACL repair DOS: 01/29/20. Please see the progress note below for an update on the physical therapy plan of care! Subjective: Pt. reports overall doing well. Pt. worked 2 12 hours shifts without issues. She reports being HEP compliant. She wore her brace for the work days. Objective/Function: Pt. is doing well. She tolerated work really well. Pt. reported minimal swelling. Pt. had 125deg of knee flexon today and still has full knee extension. Pt. is progressing with strengthening as expected. Pt. would benefit from continued to strengthening to increase overall hip and knee stability. Plan Plan: Try descending stairs or step next visit. Goals Goal 1:: LTG: Pt. to be I with HEP. Goal Time Frame: 4-6 Weeks Goal Progress: Goal Met Goal 2:: STG: Pt. to have 0-0-120deg of R knee AROM. Goal Time Frame: 2 Weeks Goal Progress: Progressing Goal 3:: LTG: Pt. to have 0-0-135deg of R knee AROM Goal Time Frame: 2-4 Weeks Goal Progress: Progressing Goal 4:: STG: Pt. to have good quad set and complete SLR without extnsor lag x10 reps. Goal Time Frame: 2-4 Weeks Goal Progress: Goal Met Goal 5:: STG: Pt. to have no pain at rest allowing her to sleep throughout the night without limitations. Goal Time Frame: 2 Weeks Goal Progress: Goal Met Goal 6:: LTG: PT. to have decreased edema in RLE with equal girth at patella and suprapatellar regions to LLE. Goal Time Frame: 2-4 Weeks Goal Progress: Progressing Anticipated Interventions Patient/Client Instruction: Educate patient on: Condition, Plan of Care, Risk Factors, Benefits of Fitness Program For the Purpose of:: To improve self management, To prevent re-injury, To improve ability to perform tasks related to life management, To improve tolerance to ADL's Therapeutic Exercise to Include: Strength training, Power training, Endurance training, Body mechanics, Postural training, Flexibilty training, Gait and locomotor training, Passive ROM, Active ROM, Dynamic Lumbar Stabilization For the Purpose of:: To decrease pain, To decrease swelling/inflammation, To increase ROM, To improve nutrient delivery to tissue, To increase oxygenation perfusion, To improve muscle performance and motor function, To improve ability to perform ADL's, To increase tolerance to activity/condition/position, To improve performance and independence with ADL's, To improve gait and locomotor functions, To improve health of tissue, To decrease soft tissue restriction, To increase flexibility/ROM Manual Therapy Techniques to Include: Massage, Mobilization, Passive ROM, Soft tissue mobilization For the Purpose of:: To decrease pain, To decrease swelling/inflammation, To increase ROM, To improve nutrient delivery to tissue, To improve muscle performance and motor function, To improve health of tissue, To decrease soft tissue restriction, To increase flexibility/ROM IF ES: Yes - NMES for quad activation Cryotherapy (ice pack, ice massage): Yes Vasopneumatic device: Yes For the Purpose of:: To decrease pain, To decrease swelling/inflammation, To increase ROM Please do not hesitate to contact me at [phone] by phone or if you have questions or concerns regarding this new plan of care! Sincerely, Lew Lackey DPT <Electronically signed by Lew Lackey DPT> 04/01/20 1133 CC: Dr. Aruna Liu DO; Dr. Rachel Lo DO CLS Signed For Medicare only, by signing this I certify the plan of care. Physicians Signature Date Rachel Lo Start: 03-12-2020 End: 03-12-2020 Re-Evaluation - PT (1) Comments: See Note; NOTES: [facility] Physical [facility] [address] [facility] [address] [place] [address] / REEVALUATION / MEDICARE RECERTIFICATION PHYSICAL THERAPY MR#: [id number] Acct: [id number] Name: AFSHAN DON Rep #: [id number] : 1980 39 From: Lew Lackey DPT Referring Dr.: Dr. Aruna Liu DO Status:R EG RCR Insurance: [facility] SELF PAY INSURANCE Dr. Aruna Liu, DO, It has been my pleasure to treat AFSHAN DON over the last 12 visits for R ACL repair DOS: 01/29/20. Please see the progress note below for an update on the physical therapy plan of care! Subjective: Pt. reports overall doing well. my quad was pretty sore after last time, but I am okay today. Pt. report seeing physician who wants her to contiune to work on ROM, both extnsion and flexion. Potential RTW Mar 30. Objective/Function: AROM: R knee 0-0-110deg after stretching. PROM: R knee 0-0-117deg. Sore at end range of stretching. Pt. initially had difficulty getting into end range extension, but imrpoved after stretching. Pt. is able to complete SLR x10 with good TKE. Pt. is now full WBing open to 90deg. Cont. to progress end range of motion, and progress CKC strengthening as tolerated. Plan Plan: Cont with plan - emphasis on knee flexion, along with strength. Goals Goal 1:: LTG: Pt. to be I with HEP. Goal Time Frame: 4-6 Weeks Goal Progress: Goal Met Goal 2:: STG: Pt. to have 0-0-120deg of R knee AROM. Goal Time Frame: 2 Weeks Goal Progress: Progressing Goal 3:: LTG: Pt. to have 0-0-135deg of R knee AROM Goal Time Frame: 2-4 Weeks Goal Progress: Progressing Goal 4:: STG: Pt. to have good quad set and complete SLR without extnsor lag x10 reps. Goal Time Frame: 2-4 Weeks Goal Progress: Goal Met Goal 5:: STG: Pt. to have no pain at rest allowing her to sleep throughout the night without limitations. Goal Time Frame: 2 Weeks Goal Progress: Goal Met Goal 6:: LTG: PT. to have decreased edema in RLE with equal girth at patella and suprapatellar regions to LLE. Goal Time Frame: 2-4 Weeks Goal Progress: Progressing Anticipated Interventions Patient/Client Instruction: Educate patient on: Condition, Plan of Care, Risk Factors, Benefits of Fitness Program For the Purpose of:: To improve self management, To prevent re-injury, To improve ability to perform tasks related to life management, To improve tolerance to ADL's Therapeutic Exercise to Include: Strength training, Power training, Endurance training, Body mechanics, Postural training, Flexibilty training, Gait and locomotor training, Passive ROM, Active ROM, Dynamic Lumbar Stabilization For the Purpose of:: To decrease pain, To decrease swelling/inflammation, To increase ROM, To improve nutrient delivery to tissue, To increase oxygenation perfusion, To improve muscle performance and motor function, To improve ability to perform ADL's, To increase tolerance to activity/condition/position, To improve performance and independence with ADL's, To improve gait and locomotor functions, To improve health of tissue, To decrease soft tissue restriction, To increase flexibility/ROM Manual Therapy Techniques to Include: Massage, Mobilization, Passive ROM, Soft tissue mobilization For the Purpose of:: To decrease pain, To decrease swelling/inflammation, To increase ROM, To improve nutrient delivery to tissue, To improve muscle performance and motor function, To improve health of tissue, To decrease soft tissue restriction, To increase flexibility/ROM IF ES: Yes - NMES for quad activation Cryotherapy (ice pack, ice massage): Yes Vasopneumatic device: Yes For the Purpose of:: To decrease pain, To decrease swelling/inflammation, To increase ROM Please do not hesitate to contact me at [phone] by phone or if you have questions or concerns regarding this new plan of care! Sincerely, KAY ArthurT <Electronically signed by Lew Lackey DPT> 03/12/20 1101 CC: Dr. Aruna Liu, DO; Dr. Rachel Lo DO CLS Signed For Medicare only, by signing this I certify the plan of care. Physicians Signature Date Rachel Lo Start: 03-05-2020 End: 03-05-2020 Orthopedic Visit Report Comments: See Note; NOTES: [facility] [address] [place] [address] [address] [place] [address] OFFICE VISIT Date of Service: 03/05/20 MR#: [id number] Acct: [id number] Name: AFSHAN DON Rep #: [id number] : 1980 Provider: ARETHA Solano Age/Sex: 39/F Location: [facility] Status: Signed Intake Intake Visit Reasons: RIGHT KNEE Is patient in pain?: No Allergies No Known Allergies Allergy (Verified 03/05/20 08:21) PFSH Social History (Updated 03/05/20 @ 16:24 by ARETHA Zamora) Smoking Status: Never smoker HPI RIGHT KNEE: Details: Parts of this documentation were recorded by a scribe, this documentation accurately reflects the service provided and the decisions made by , ARETHA Zamora 03/05/20 0815. AFSHAN DON is a 39 year old F here today for s/p right knee acl tear dos 01/29/20. Patient states that she is doing well. She denies any pain but has soreness after physical therapy. She is taking aleve for pain. She continues to have knee swelling with increased activities. Patient notes that she has been wearing her TROM at all times. She is ambulating partial weightbearing with crutches. She is currently in physical therapy which has been helpful. Denies numbness, tingling or other associated symptoms. ROS Musc Reports muscle weakness, Denies numbness, Denies tingling Skin/Breast Reports system reviewed and no additional complaints, except as docu Neuro Yes system reviewed and no additional complaints, except as docu, No numbness, No tingling Ortho Exam Right Knee Skin/Wound: Yes healed, No erythema, No ecchymosis Contralateral Normal: Yes Homans Sign: No Knee ROM: No ROM-Extension -20 to 0, No ROM-Flexion 0-140 Examination: No Med jt line tenderness, No Lat jt line tenderness, Yes Pain with flexion (Tightness), No Pain with extention Quad Atrophy: Yes KNEE: Inspection of the right knee shows no acute abnormalities. No localized or generalized swelling and no evident effusion. Her incision sites have healed well with minimal scarring. She has no tenderness on palpation of the knee or the incision sites. There is still decreased range of motion at this time due to being immobilized. She has soft lower leg compartments and no calf tenderness and a negative Homans. She has normal sensation throughout the extremity normal distal pulses. Assessment Plan Problems 1. Orthopedic aftercare Z47.89 Plan Patient resents the office today for 6-week postop follow-up of right ACL reconstruction with allograft. At this time patient is doing very well. She states that she has not been having really pain for the past 2 to 3 weeks. She is going to physical therapy and working on her range of motion at this time. She has had the brace locked in extension with ambulation unlocking this only to 30 degrees occasionally for rest. Her incision sites have healed well without any signs of infection or inflammation. She has no signs of DVT at this time. At this time patient needs to continue to physical therapy and we are going to begin to wean out of the brace and off of the crutches when she feels able. She can unlock the brace to 90 degrees and use this as a functional brace for again another week or 2 until she feels comfortable. At that point we can switch her into a playmaker brace as she is more functional. She is continue to ice and take an anti-inflammatory as needed for inflammation/pain. Notify of any new injuries, increased pain, erythema, warmth, numbness or tingling, or any other signs or symptoms This note was generated with [employer] software. It may contain incorrect words, spelling, and punctuation that were not noted in checking the note before signing. Coding Level of Care Code Global Post Op Diagnoses Orthopedic aftercare Z47.89 03/05/20 8119 <Electronically signed by David Wayt PA> Date Davdi Tobar Signature: Date (if applicable) CC: Rachel Lo Start: 02-12-2020 End: 02-12-2020 Inital Evaluation (1) - PT Comments: See Note; NOTES: [facility] [address] [place] [address] / REHABILITATION SERVICES INITIAL EVALUATION MR#: [id number] Acct: [id number] Name: AFSHAN DON Rep #: [id number] : 1980 39 From: Lew Lackey DPT Referring Dr.: Dr. Aruna Liu DO Status: REG RCR Insurance: [facility] [employer]EL[employer]URANCE Patient's Visit Information AFSHAN DON is a 39 year old F referred to Physical Therapy by Dr. Aruna Liu DO with a diagnosis of R ACL repair DOS: 01/29/20. Date of Evaluation: 02/12/20 Physical Therapist: KAY ArthurT - Visit Plan Frequency: 2-3x /Week Duration: 6 Weeks Plan: Start with quad sets, knee extension ROM, progressing knee flexion ROM (Per protocal), hip strengthening. Progress per protocol. May use NMES and ice/vaso for edema control. - Subjective Pt. is here today for her initial evaluation with diagnosis of R ACL repair DOS: 01/29/20. Pt. was seen for prehab working on strengthening and ROM. Pt. injury occured while jumping over a fence, with R knee hyper extension. Pt. reports overall doing well, PWBing with crutches. Pt. is locked out at -10 extension, allowed to open up in sitting. Pt. is driving. Pt. reports overall doing well. Pt. denies fever, chills, double vision. Pt. denies calf pain, but does report some thigh tightness. Pt. reports not needing to take prescription pain meds, but has migrated to OTC meds. I talked to her about taking her meds as needed to allow for her to push through some ROM. Pt. consents. 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 Pt. is hopeful to increase her ROM and strength in order to get back to all work and recreational actvitieis without limitations. - Pain R knee Pain Intensity (Out of 10): 2 Pain Intensity Range: 0, 4 Comment: Achy - Objective POSTURE: Pt. has sligth knee flexion in stance, PWB with crutches. PALPATION: Pt. has normal healing incision, no signs of infection. Pt. has marked edema (non pitting). Girth (above- 55cm, patella- 49cm, below 47cm) R Knee. NEURO: normal sensation, nromal DTR bilaterally. ROM: R knee active: 0-10-73deg. PROM: 0-3-81deg- tightness as limiting factor. MMT: Pt. has some quad actiation with quad sets, SLR- 10deg lag. HIp abd 4/5, hip ext 4/5. GAIT: Pt. ambulates with crutches with PWB with proper use. Negotiates steps with crutches with proper use. - Goals Goal 1:: LTG: Pt. to be I with HEP. Goal Time Frame: 4-6 Weeks Goal 2:: STG: Pt. to have 0-0-120deg of R knee AROM. Goal Time Frame: 2 Weeks Goal 3:: LTG: Pt. to have 0-0-135deg of R knee AROM Goal Time Frame: 2-4 Weeks Goal 4:: STG: Pt. to have good quad set and complete SLR without extnsor lag x10 reps. Goal Time Frame: 2-4 Weeks Goal 5:: STG: Pt. to have no pain at rest allowing her to sleep throughout the night without limitations. Goal Time Frame: 2 Weeks Goal 6:: LTG: PT. to have decreased edema in RLE with equal girth at patella and suprapatellar regions to LLE. Goal Time Frame: 2-4 Weeks - Rehabilitation Potential Physical Therapy Diagnosis: Pt. has signs and symptoms consistent with R ACL repair. Pt. is PWB and has marked hypomobiity as expected. Pt. would benefit from PT to work on ROM, pain control, edema control, progressing to strengthenging and functional mobility once ready. Rehabilitation Potential: Excellent - Anticipated Interventions Patient/Client Instruction: Educate patient on: Condition, Plan of Care, Risk Factors, Benefits of Fitness Program For the Purpose of:: To improve self management, To prevent re-injury, To improve ability to perform tasks related to life management, To improve tolerance to ADL's Therapeutic Exercise to Include: Strength training, Power training, Endurance training, Body mechanics, Postural training, Flexibilty training, Gait and locomotor training, Passive ROM, Active ROM, Dynamic Lumbar Stabilization For the Purpose of:: To decrease pain, To decrease swelling/inflammation, To increase ROM, To improve nutrient delivery to tissue, To increase oxygenation perfusion, To improve muscle performance and motor function, To improve ability to perform ADL's, To increase tolerance to activity/condition/position, To improve performance and independence with ADL's, To improve gait and locomotor functions, To improve health of tissue, To decrease soft tissue restriction, To increase flexibility/ROM Manual Therapy Techniques to Include: Massage, Mobilization, Passive ROM, Soft tissue mobilization For the Purpose of:: To decrease pain, To decrease swelling/inflammation, To increase ROM, To improve nutrient delivery to tissue, To improve muscle performance and motor function, To improve health of tissue, To decrease soft tissue restriction, To increase flexibility/ROM IF ES: Yes - NMES for quad activation Cryotherapy (ice pack, ice massage): Yes Vasopneumatic device: Yes For the Purpose of:: To decrease pain, To decrease swelling/inflammation, To increase ROM Thank you for the opportunity to evaluate your patient. For Medicare and Medicare HMO plans, please review the plan of care and approve it. It will need to be FAXED BACK to us at [phone] for Medicare purposes. For Medicare only, by signing this I certify the plan of care. Please let me know if there are questions or concerns regarding this plan of care. Physician Signature: _Date: <Electronically signed by Lew Lackey DPT> 02/12/20 1157 CC: Dr. Aruna Liu DO; Dr. Rachel Lo DO CLS Signed Rachel Lo Start: 02-11-2020 End: 02-11-2020 Orthopedic Visit Report Comments: See Note; NOTES: [facility] Orthopaedics Sports Medicine [address] [place] [address] OFFICE VISIT Date of Service: 02/11/20 MR#: [id number] Acct: [id number] Name: AFSHAN DON Rep #: [id number] : 1980 Provider: Dr. Aruna galloway DO Age/Sex: 39/F Location: [facility] Status: Signed Intake Intake Visit Reasons: right knee Chief Complaint: right knee Allergies No Known Allergies Allergy (Verified 01/22/20 08:54) PFSH Social History (Updated 02/11/20 @ 10:[address] Aruna Liu DO) Smoking Status: Never smoker HPI right knee: Details: Parts of this documentation were recorded by a scribe, this documentation accurately reflects the service provided and the decisions made by me, Dr. Aruna Liu DO 02/11/20 0908. AFSHAN DON is a 39 year old F here today for s/p right knee arthroscopy, acl reconstruction with allograft/arthrex graft link dos 01/29/20. Patient states that she is doing well and not having much pain. She notes that she is taking aleve for pain. She has been non-weightbearing with her crutches and brace at all times. She states that her numbness has improved with the swelling decreasing. She denies any calf pain. ROS Musc Reports joint pain, Reports joint swelling Ortho Exam Right Knee Skin/Wound: Yes healing, Yes suture/tico removed, Yes ecchymosis, Yes swelling Homans Sign: No 1+: Effusion KNEE: negative homans Left Knee Homans Sign: No Assessment Plan Problems 1. Orthopedic aftercare Z47.89 Plan Personally reviewed the surgical images, the surgery procedure and reviewed the post op care instructions. Monitor for signs of infection, redness, warmth, swelling in excess, drainage, opening of incision site/sites, and/or fever. Spoke with the patient about the importance of knee extension. Gave the patient a script for physical therapy for strengthening. She should ambulate with her knee brace locked in extension. Patient may begin her control in another week when she is ambulating more. She may drive. Follow up in 4 weeks for her 6 week post op or sooner if pain, swelling, numbness or associated symptoms, or concerns develop. All questions answered. Patient in agreement of plan. Coding Level of Care Code Global Post Op Diagnoses Orthopedic aftercare Z47.89 02/11/20 1054 <Electronically signed by Aruna Liu DO> Date Aruna Lazcanoigner Signature: Date (if applicable) CC: Rachel Lo Start: 02-03-2020 End: 02-03-2020 Orthopedic Visit Report Comments: See Note; NOTES: [facility] [address] [place] [address] OFFICE VISIT Date of Service: 02/03/20 MR#: [id number] Acct: [id number] Name: AFSHAN DON Rep #: [id number] : 1980 Provider: ARETHA Solano Age/Sex: 39/F Location: [facility] Status: Signed Intake Intake Visit Reasons: right knee Chief Complaint: right knee Allergies No Known Allergies Allergy (Verified 01/22/20 08:54) PFSH Social History (Updated 02/03/20 @ 12:32 by ARETHA Zamora) Smoking Status: Never smoker HPI right knee: Details: Parts of this documentation were recorded by a scribe, this documentation accurately reflects the service provided and the decisions made by me, ARETHA Zamora 02/03/20 0919. AFSHAN DON is a 39 year old F here today for 5 day post op from right knee arthroscopy, acl reconstruction with allograft/arthrex graft link. Denies any calf pain or tenderness today. States she has just been taking her pain medication to help her sleep. Denies numbness, tingling or other associated symptoms. Incision is healing well, no s/sx fo injection noted. ROS Musc Reports joint pain, Reports joint swelling, Reports limited joint movement, Denies numbness, Denies radiating pain into limb, Reports stiffness, Denies tingling Skin/Breast Denies redness, Denies lesions, Denies itching, Denies rash, Denies skin swelling Neuro No numbness, No tingling Ortho Exam Right Knee Skin/Wound: Yes healing, No erythema, Yes ecchymosis, Yes swelling Contralateral Normal: Yes Homans Sign: No Patella Grind: No KNEE: Inspection of the knee show some mild generalized swelling still with some minor ecchymosis on the anterior knee. Her incision sites are clean, dry, and intact with good approximation and no erythema, warmth, discharge, or other signs of infection. Patient still some minor discomfort on palpation at the same time she still has some superficial numbness on the anterior medial knee. Patient has normal sensation throughout the rest of the extremity and normal distal pedal pulses. She has no calf pains on palpation and a negative Homans. Her compartments are soft at this time. Assessment Plan Problems 1. Orthopedic aftercare Z47.89 Plan Patient presents to the office today 5 days postop for right ACL reconstruction with allograft. At this time patient is doing very well having minimal discomfort/pain. She is only taking 1 of the pain pills every so often she states. She does continue to ice and elevate and has been wearing compression stockings. Physical exam today shows no signs of infection at the incision sites and no evidence of DVT. Patient is to continue working on ankle pumps as well as icing and elevating. We did discuss making sure that she works on extension of the knee not resting with a pillow under it all the time. Patient is able to unlock the brace with 40 degrees of flexion periodically for short periods of time. I am going to speak with the surgeon and see if we can unlock her to 70 degrees here in a few days. She is to keep the brace locked in extension with any ambulation with crutches. Monitor notify of any increased pain, increased swelling, erythema, or any other signs or symptoms. Patient follow-up in 1 week for 2-week postop check. This note was generated with [employer] dictation software. It may contain incorrect words, spelling, and punctuation that were not noted in checking the note before signing. Coding Level of Care Code Global Post Op Diagnoses Orthopedic aftercare Z47.89 02/03/20 1232 <Electronically signed by David CARIAS> Date David CARIAS Cosigner Signature: Date (if applicable) CC: Rachel Lo Start: 01-29-2020 End: 02-06-2020 Operative Report Comments: See Note; NOTES: [facility] Medical Records Department [address] [place] [address] Operative Report 01/29/20 0748 MR#: [id number] Acct: [id number] Name: AFSHAN DON Rep #: [id number] : 1980 39 From: Aruna Liu DO PCP: Dr. Rachel Lo DO Status:[facility] Location: [facility] Report of Operation Date of Procedure: 01/29/20 Pre-Operative Diagnosis: right knee acl tear Post-Operative Diagnosis: same Surgery/Procedure Performed:: right knee arthroscopy, acl reconstruction with allograft/arthrex graft link sports team marketing intern: David Solano Type of Anesthesia:: General Anesthesiologist: Calvin Roberts Specimen's removed: tt-70 min Estimated Blood Loss (mL): 20 Fluids Replaced: 1000ml lr Description of Procedure: Preop note Patient is a 39-year-old female who sustained an injury to her right knee 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 Immediate pain and instability and was seen by my physician's payroll and benefits assistant. Patient has continued stability MRI confirms ACL tear risk benefits and alternatives were discussed with patient. Risk include but not limited to blood loss, blood clot, infection, neurovascular, failure procedure, loss of life and loss of limb. 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 We discussed the current risk associated COVID- 19. While it is understood that there is a community spread of COVID 19 the risk of sarah COVID-19 while at [facility] is very low, however, the risk cannot be completely mitigated because of the community spread of the disease. We discussed in detail the risk of exposure to and or potential harm posed by the COVID-19 virus with having a surgery/procedure at this time versus the risk of delaying the surgery/procedure. Is not possible to know either the risk of delaying the surgery procedure or chance of getting an infection with perfect accuracy, but a joint decision was made to proceed at this time with a schedule surgery/procedure as indicated on the consent form. Patient was notified that we will need to comply with any screening or testing [facility] wishes to perform or that surgery may be delayed for any positive results. Also discussed with the patient that I have not been tested there is risk associated with the fact that I have not been tested however admit this currently at this time asymptomatic. Operative note Patient seen and examined preoperative holding area. Right knee was marked. Patient brought to the operating room placed supine on the operating table. Signed, anesthesia, antibiotics were administered. The operative limb was prepped and draped in usual sterile fashion with a tourniquet around her upper thigh. All bony prominences well-padded and SCDs placed on contralateral limb. Marked out our bony landmarks for incisions for anterior lateral anteromedial portal placements. Timeout was performed. We then elevated the leg exsanguinated and tourniquet was raised her pressure of 275 torr. We then used an 11 blade creator anterior lateral portal. Begin our diagnostic arthroscopy. The patellofemoral joint was unremarkable. We then moved to the anteromedial joint line. Created an anteromedial portal under direct visualization. We were then to resect back the thickened synovium anterior medial anterior lateral. We then pulled on the medial meniscus which was intact and stable probing. The medial femoral condyle middle medial medial tibial plateau were intact. The ACL was top was torn within the notch PCL was intact. The lateral meniscus was intact and stable to probing. The lateral femoral condyle lateral tibial plateau were intact and stable probing. We then debrided back the stump of the ACL and debrided back in the notch we did perform a notchplasty as she had a narrow notch. We then prepared our allograft graft link on the back table in standard technique using anterior tib. We measured to be 9 mm in diameter. This was placed on tension. We then in standard technique use a flip cutter for the femoral side after marking out our lateral aspect of her IT band distally make it may be a incision dissect down with hemostats down to bone and then placed our flip cutter at the ACL footprint within the notch. We then drilled back to 25. We then irrigated bony debris from the knee flexed it out. We then placed our suture. We then drilled our tibial tunnel under standard technique made incision anteromedially and dissect down with hemostats also in place our trocar. We then drilled back about 30. I get it set at 9. We then irrigated the knee with copious muscle sterile saline in order to get any bony debris out of the knee. We then brought the graft on the back table in standard technique flipped the button on the lateral femoral cortex and then brought the graft into the femoral tunnel. We then brought the graft down through the tibial tunnel and then ensure that there is no impingement anteriorly there was none in extension. We then cycled the graft. We then placed a button on the tibial anterior tibial cortex performing a reverse drawer and the knee was bent about 30 degrees. We then brought the pulled on the the sutures from the femoral side again to further bring the graft into the tunnel on the femoral side which we did. We then probed the graft and we had a good graft fixation. We then irrigated the knee with copious muscle sterile saline. The incision was closed with the tibial incision was closed with Vicryl and a running 4 Monocryl the portals were closed with interrupted nylon and the lateral femoral distal incision was closed with Vicryl and nylon. Sterile dressings were applied and a brace was applied to the right lower extremity. Trach was deflated for total working time of 70 minutes. Patient tolerated procedure well no complication transferred recovery room in stable condition. Postoperative note Toe-touch weightbearing right leg Follow-up on Monday with Bert for dressing change and brace initiation brace change Call with increased pain numbness tingling further issues arises Patient's been off her control for a month she will remain off of her control for at least 6 weeks Hospital pharmacy has prescriptions We will give pictures in 2 weeks This note was generated with [employer] software. It may contain incorrect words, spelling, and punctuation that were not noted in checking the note before signing. 02/06/20 1154 <Electronically signed by Aruna Liu DO> Date Aruna Liu DO CC: Dr. Aruna Liu DO; Dr. Rachel Lo DO Signed Rachel Lo Start: 01-29-2020 End: 01-29-2020 Discharge Instruction Comments: See Note; NOTES: [facility] Medical Records Department [address] [place] [address] Instructions for Home/Discharge Instructions 01/29/20 0747 MR#: [id number] Acct: [id number] Name: AFSHAN DON Rep #: [id number] : 1980 39 From: Aruna Liu DO PCP: Dr. Rachel Lo DO Status:REG [facility] Discharge Diet: No Restrictions - Remove dressings postop day 4 and apply Band-Aids to incision sites, may shower and get incision wet postop day 4, toe touch weight-bear operative leg, call with increased pain numbness tingling or further issues arise, call if calf pain or calf swelling, take pain medications as prescribed do not take any other Tylenol products, follow-up in [address]ert [address]t, ankle pumps, ice, elevate toes above nose Discharge Activity: May Not Drive May shower in (days): 1 Ice area for (Minutes): 20 - Every hour while awake. Weight Bearing Status: Weight bearing as tolerated Keep extremity elevated above heart level: Operative Extremity Call your doctor if your incision/area has: Continuous Slow Oozing, Sudden Increased Bleeding, Increased Pain/ Swelling, Increased Redness, Foul Smelling Discharge Call your doctor if you observe: Fever of 101 or Higher, Coldness, Increased Pain, Numbness or Tingling, Change in Color, Calf discomfort Allergies/Adverse Reactions: Allergies No Known Allergies Allergy (Verified 01/22/20 08:54) Medications to take at Discharge Sumatriptan Succinate [Imitrex] 50 mg PO .X1 PRN PRN 02/06/17 etonogestrel 0.12 mg-ethinyl estradiol 0.015 mg/24 hr vaginal ring 1 vag ring VAGINAL Q4W 12/27/19 Dupilumab [Dupixent] 200 mg SQ 01/22/20 Loratadine [Claritin] 10 mg PO DAILY PRN 01/22/20 Hydrocodone Bitart/Apap 5-325 [[place] 5MG-325MG] 1 - 2 tablet PO Q6H PRN PRN 5 Days #40 tablet 01/29/20 Ondansetron [Zofran] 8 mg PO Q8H PRN PRN #20 tab 01/29/20 The following prescriptions were given: Hydrocodone Bitart/Apap 5-325 [[place] 5MG-325MG] 1 - 2 tablet PO Q6H PRN PRN 5 Days #40 tablet PRN Reason: Pain Transmission Status: Sent to [facility] Ondansetron [Zofran] 8 mg PO Q8H PRN PRN #20 tab PRN Reason: Nausea Transmission Status: Pending to [facility] Primary Care Physician: Rachel Lo DO [Primary Care Provider] - Test Results: Test results from this visit will be discussed in further detail at your follow-up appointment, if applicable. Please Follow Up With: Aruna Liu DO - [phone] 01/29/20 7012 <Electronically signed by Aruna Liu DO> Date Aruna Liu DO CC: Dr. Rachel Lo DO Signed Rachel Lo Start: 01-28-2020 End: 01-28-2020 History and Physical Exam Comments: See Note; NOTES: [facility] Medical Records Department [address] [place] [address] History and Physical 01/28/20 5145 MR#: [id number] Acct: [id number] Name: AFSHAN DON Rep #: [id number] : 1980 39 From: Aruna Liu DO PCP: Dr. Rachel Lo, DO Status:PRE [facility] Y Location: [facility] History and Physical I have re-examined the patient. There are no clinical changes since date of exam. We discussed the current risk associated COVID-19. While it is understood that there is a community spread of COVID 19 the risk of sarah COVID-19 while at [facility] is very low, however, the risk cannot be completely mitigated because of the community spread of the disease. We discussed in detail the risk of exposure to and or potential harm posed by the COVID-19 virus with having a surgery/procedure at this time versus the risk of delaying the surgery/procedure. Is not possible to know either the risk of delaying the surgery procedure or chance of getting an infection with perfect accuracy, but a joint decision was made to proceed at this time with a schedule surgery/procedure as indicated on the consent form. Patient was notified that we will need to comply with any screening or testing [facility] wishes to perform or that surgery may be delayed for any positive results. Intake Vital Signs 12/27/19 Height 5 ft 6 in 12/27/19 Weight: 225 lb 12/27/19 BMI 36.3 Intake Visit Reasons: RIGHT KNEE Chief Complaint: right knee Accompanied by: self Is patient in pain?: Yes Pain scale (1-10): 5 Allergies No Known Allergies Allergy (Verified 02/06/17 08:53) Medications Sumatriptan Succinate [Imitrex] 50 mg PO .X1 PRN 02/06/17 [History Confirmed 12/27/19] etonogestrel 0.12 mg-ethinyl estradiol 0.015 mg/24 hr vaginal ring 1 vag ring VAGINAL Q4W 12/27/19 [History Confirmed 12/27/19] PFSH Social History (Updated 12/27/19 @ 13:54 by ARETHA Zamora) Smoking Status: Never smoker HPI RIGHT KNEE: Details: Parts of this documentation were recorded by a scribe, this documentation accurately reflects the service provided and the decisions made by me, ARETHA Zamora 12/27/19 7043. AFSHAN DON is a 39 year old F NEW patient here today for right knee pain. 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 DOI: 12/24/2019 States that her knee keeps wanting to give out on her. She was seen at her PCP office had x-rasy and has had an MRI of the right knee. Denies any bracing. Denies numbness, tingling or other associated symptoms. She is having mostly medial/lateral and posterior pain. She is walking on her right leg. Denies numbness, tingling or other associated symptoms. ROS Musc Reports joint pain, Reports joint swelling, Reports limited joint movement, Denies numbness, Denies radiating pain into limb, Reports stiffness, Denies tingling Skin/Breast Denies redness, Denies lesions, Denies itching, Denies rash, Denies skin swelling Neuro No numbness, No tingling Ortho Exam Right Knee Skin/Wound: No erythema, No ecchymosis, Yes swelling Contralateral Normal: Yes Homans Sign: No Knee ROM: No ROM-Extension -20 to 0, No ROM-Flexion 0-140 Examination: No Med jt line tenderness, No Lat jt line tenderness, Yes Pain with flexion (Mild discomfort and tightness), Yes Pain with extention (Mild discomfort), No Chelly's Test Quad Atrophy: No Stability: NML: Posterior Drawer, NML: Varus 30, 1+: Anterior Drawer (Minor discomfort), 1+: Kali, 1+: Valgus 30 (Minor gapping and discomfort) KNEE: Inspection of the right knee show some mild generalized swelling. No major effusion. There is no erythema, ecchymosis/bruising, warmth, or any other skin changes. Patient does have discomfort with range of motion and does have some decrease in her flexion and extension. There does appear some gapping of the medial joint line with valgus stress as well as some minor discomfort. Patient does have some laxity with anterior drawer and Lockman's. Assessment Plan Problems 1. Rupture of anterior cruciate ligament of right knee, initial encounter S83.511A 2. Injury of right knee, initial encounter S89.91XA Plan Patient presents to the office with right knee pain and swelling following an injury approximate 3 to 4 days ago. Patient was stepping down from a fence and misjudged the distance and landed with a straight knee causing it to buckle. Patient felt immediate pain along with evident pop/Snap. She did have swelling noted shortly after and has had pains and problems ever since. Patient did have an x-ray and a MRI as well. MRI results were reviewed with patient already showing an evident ACL rupture. There is not appear to be any significant meniscal damage at this time and her physical exam actually does support this having no pains really in the joint line or with Chelly's. Her pains on the medial aspect of more over the origin of the MCL. At this time we did discuss patient's options which to include surgical intervention at this time. 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 She at this time would like to have this fixed. We did discuss the ACL reconstruction surgery in detail. We discussed that really a lot of recovery will depend also on the meniscus which according to the MRI do not show evident damage. We did discuss however that we initially will evaluate the ACL as well as the meniscus to determine whether they will need repaired or not. We did discuss types of graft used including allo- versus autograft. Risks and benefits of the procedure were discussed in office with patient in detail and consent was signed in office today. Patient does take a control and therefore will have to stop this control for 4-6 weeks prior to surgery. She is already doing some pre-hab and can continue to do so working on swelling, and range of motion. Patient was given a brace today to provide her with some support as well. She is not using crutches at this time and would like to continue not using crutches. I would like her to use crutches if she has any instability of the knee. Patient was given antimicrobial scrub to be used the night before the morning of her surgery. She will be notified by the office of the day of her surgery and the surgery apartment for PAT testing. Possible that we will need to do another consent if we wait 6 weeks for her to be off of her control. She can notify our office if she has any other concerns complaints in the meantime. This note was generated with [employer] dictation software. It may contain incorrect words, spelling, and punctuation that were not noted in checking the note before signing. Coding Level of Care Code Off vis,new,level 3 Diagnoses Rupture of anterior cruciate ligament of right knee, initial encounter S83.511A ?Encounter type: initial encounter Injury of right knee, initial encounter S89.91XA ?Encounter type: initial encounter 01/28/20 1457 <Electronically signed by Aruna Liu DO> Date Aruna Liu DO Cosigner Signature: Date (if applicable) CC: Dr. Aruna Liu DO; Dr. Rachel Lo DO Signed Rachel Lo Start: 01-26-2020 End: 01-26-2020 PT D/C of Non Returning Pt (1) Comments: See Note; NOTES: [facility] Physical Therapy [address] [place] [address] / REHABILITATION SERVICES DISCHARGE SUMMARY MR#: [id number] Acct: [id number] Name: AFSHAN DON Rep #: [id number] : 1980 39 From: Lew Lackey DPT Referring DrJelly: MARY Simms Status: REG RCR Insurance: [facility] SELF PAY INSURANCE AFSHAN DON was seen in my office for initial evaluation on 12/25/19. The following Plan of Care was established for this patient: Initial Frequency: 2x /Week Initial Duration: 4-6 Weeks Patient/Client Instruction: Educate patient on: Condition, Plan of Care, Risk Factors, Benefits of Fitness Program For the Purpose of:: To improve decision making, To facilitate caregiver knowledge, To improve self management, To prevent re-injury, To improve ability to perform tasks related to life management, To improve tolerance to ADL's Therapeutic Exercise to Include: Strength training, Power training, Body mechanics, Postural training, Flexibilty training, Gait and locomotor training, Passive ROM, Active ROM For the Purpose of:: To decrease pain, To decrease swelling/inflammation, To increase ROM, To improve nutrient delivery to tissue, To increase oxygenation perfusion, To improve muscle performance and motor function, To improve ability to perform ADL's TENS: Yes Cryotherapy (ice pack, ice massage): Yes Vasopneumatic device: Yes For the Purpose of:: To decrease pain, To decrease swelling/inflammation, To increase ROM, To improve nutrient delivery to tissue, To increase oxygenation perfusion This patient was last seen in our office 01/15/20. Pertinent comments regarding their Physical therapy will appear below: Pt. was treated for her knee pain. Pt. has an ACL rutpture and is undergoing surgery next week. Pt. will be DC from PT at this point in time. At this point I will be discontinuing this patient from physical therapy. I would be happy to see this patient again in the future if found appropriate by the physician. Thank you! KAY ArthurT <Electronically signed by Lew Lackey DPT> 01/26/20 1144 CC: MARY Simms; Dr. Rachel Lo, CLS Signed Rachel Lo Start: 12-27-2019 End: 12-27-2019 /JOSEPHINE Comments: See Note; NOTES: [facility] [address] [place] [address] OFFICE VISIT Date of Service: 12/27/19 MR#: [id number] Acct: [id number] Name: AFSHAN DON Rep #: [id number] : 1980 Provider: ARETHA Solano Age/Sex: 39/F Location: [facility] Status: Signed Intake Vital Signs 12/27/19 Height 5 ft 6 in 12/27/19 Weight: 225 lb 12/27/19 BMI 36.3 Intake Visit Reasons: RIGHT KNEE Chief Complaint: right knee Accompanied by: self Is patient in pain?: Yes Pain scale (1-10): 5 Allergies No Known Allergies Allergy (Verified 02/06/17 08:53) Medications Sumatriptan Succinate [Imitrex] 50 mg PO .X1 PRN 02/06/17 [History Confirmed 12/27/19] etonogestrel 0.12 mg-ethinyl estradiol 0.015 mg/24 hr vaginal ring 1 vag ring VAGINAL Q4W 12/27/19 [History Confirmed 12/27/19] PFSH Social History (Updated 12/27/19 @ 13:54 by ARETHA Zamora) Smoking Status: Never smoker HPI RIGHT KNEE: Details: Parts of this documentation were recorded by a scribe, this documentation accurately reflects the service provided and the decisions made by me, ARETHA Zamora 12/27/19 1218. AFSHAN DON is a 39 year old F NEW patient here today for right knee pain. 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 DOI: 12/24/2019 States that her knee keeps wanting to give out on her. She was seen at her PCP office had x-rasy and has had an MRI of the right knee. Denies any bracing. Denies numbness, tingling or other associated symptoms. She is having mostly medial/lateral and posterior pain. She is walking on her right leg. Denies numbness, tingling or other associated symptoms. ROS Musc Reports joint pain, Reports joint swelling, Reports limited joint movement, Denies numbness, Denies radiating pain into limb, Reports stiffness, Denies tingling Skin/Breast Denies redness, Denies lesions, Denies itching, Denies rash, Denies skin swelling Neuro No numbness, No tingling Ortho Exam Right Knee Skin/Wound: No erythema, No ecchymosis, Yes swelling Contralateral Normal: Yes Homans Sign: No Knee ROM: No ROM-Extension -20 to 0, No ROM-Flexion 0-140 Examination: No Med jt line tenderness, No Lat jt line tenderness, Yes Pain with flexion (Mild discomfort and tightness), Yes Pain with extention (Mild discomfort), No Chelly's Test Quad Atrophy: No Stability: NML: Posterior Drawer, NML: Varus 30, 1+: Anterior Drawer (Minor discomfort), 1+: Kali, 1+: Valgus 30 (Minor gapping and discomfort) KNEE: Inspection of the right knee show some mild generalized swelling. No major effusion. There is no erythema, ecchymosis/bruising, warmth, or any other skin changes. Patient does have discomfort with range of motion and does have some decrease in her flexion and extension. There does appear some gapping of the medial joint line with valgus stress as well as some minor discomfort. Patient does have some laxity with anterior drawer and Lockman's. Assessment Plan Problems 1. Rupture of anterior cruciate ligament of right knee, initial encounter S83.511A 2. Injury of right knee, initial encounter S89.91XA Plan Patient presents to the office with right knee pain and swelling following an injury approximate 3 to 4 days ago. Patient was stepping down from a fence and misjudged the distance and landed with a straight knee causing it to buckle. Patient felt immediate pain along with evident pop/Snap. She did have swelling noted shortly after and has had pains and problems ever since. Patient did have an x-ray and a MRI as well. MRI results were reviewed with patient already showing an evident ACL rupture. There is not appear to be any significant meniscal damage at this time and her physical exam actually does support this having no pains really in the joint line or with Chelly's. Her pains on the medial aspect of more over the origin of the MCL. At this time we did discuss patient's options which to include surgical intervention at this time. 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 She at this time would like to have this fixed. We did discuss the ACL reconstruction surgery in detail. We discussed that really a lot of recovery will depend also on the meniscus which according to the MRI do not show evident damage. We did discuss however that we initially will evaluate the ACL as well as the meniscus to determine whether they will need repaired or not. We did discuss types of graft used including allo- versus autograft. Risks and benefits of the procedure were discussed in office with patient in detail and consent was signed in office today. Patient does take a control and therefore will have to stop this control for 4-6 weeks prior to surgery. She is already doing some pre-hab and can continue to do so working on swelling, and range of motion. Patient was given a brace today to provide her with some support as well. She is not using crutches at this time and would like to continue not using crutches. I would like her to use crutches if she has any instability of the knee. Patient was given antimicrobial scrub to be used the night before the morning of her surgery. She will be notified by the office of the day of her surgery and the surgery apartment for PAT testing. Possible that we will need to do another consent if we wait 6 weeks for her to be off of her control. She can notify our office if she has any other concerns complaints in the meantime. This note was generated with [employer] dictation software. It may contain incorrect words, spelling, and punctuation that were not noted in checking the note before signing. Coding Level of Care Code Off vis,new,level 3 Diagnoses Rupture of anterior cruciate ligament of right knee, initial encounter S83.511A ?Encounter type: initial encounter Injury of right knee, initial encounter S89.91XA ?Encounter type: initial encounter 12/27/19 1354 <Electronically signed by David CARIAS> Date David CARIAS Cosigner Signature: Date (if applicable) CC: Rachel Lo Start: 12-26-2019 End: 12-26-2019 PT/HP.PTEVAL Comments: See Note; NOTES: [facility] [address] [place] [address] / REHABILITATION SERVICES INITIAL EVALUATION MR#: [id number] Acct: [id number] Name: AFSHAN DON Rep #: [id number] : 1980 39 From: Lew Lackey DPT Referring Dr.: MARY Simms Status: REG RCR Insurance: [facility] [employer] SELF PAY INSURANCE Patient's Visit Information AFSHAN DON is a 39 year old F referred to Physical Therapy by MARY Fuller with a diagnosis of R knee pain. Date of Evaluation: 12/25/19 Physical Therapist: Lew Lackey DPT - Visit Plan Frequency: 2x /Week Duration: 4-6 Weeks Plan: I suspect a posssible ACL tear, of a higher level sprain of this ligament. Moslty due to nature of injury. She does not appear to have meniscal involvement. She has some medial joint line p ain, but unlikely MCL is involved. Pt. to have MRI tomorrow. In the mean time I suggest ice, elevate, compression (or vaso device) to reduce edema; light ROM working on progressing extension and flexion slowly and quad activation. Pt. has ambulate as tolerated, but to avoid uneven surfaces. Will know more tomorrow after MRI. Progress pending MRI results. - Subjective Pt. is here today for her initial evaluation with diagnosis of R knee pain. Pt. hurt her knee yesterday when she was jumping over a fence and landed on her leg with her knee in hyper extension. Pt. reports feeling a loud pop with instant pain. Pt. reports feeling a little better today, but reports pain is still high and her knee feels unstable when she walks. Pt. denies N/T in her leg. Pt. is able to bear wt. on her leg, but has difficulty with walking. Pt. has been icing and taking anti inflammatories, which has been helping. Pt. is scheduled for an MRI tomorrow. 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 SHe is off today, but plans on going back to work when able. - Pain R knee Pain Intensity (Out of 10): 4 Pain Intensity Range: 2, 8 - Objective POSTURE: Pt. has slight bent knee on R side, painful to fully extend. Tends to wt. shift to L side. PALPATION: Pt. has tenderness alpong medial joint line and in MCL region. Pt. has mild tenderness at popliteal fossa. Pt. has marked edema, but non pitting. NEURO: Pt. has normal finds throughout BLEs. ROM: L Knee- full without issues. R knee- 0-20-85deg. Pt. at end ranges of motion. I am able to progress into extension, but light (empty end feel secondary to pain). MMT: Pt. has decent quad actrviation, 4/5 knee extension and flexion secondary to pain. Normal hip strength. GAIT: Pt. ambulates without AD, but has marked antalgic pattern. Pt. lacks TKE during stance and has minmal knee flexuion during swing phase. - Special Tests R Knee Chelly - Meniscus: Negative R Knee Anterior Drawer - ACL: Negative R Knee Valgus - MCL: Negative R Knee Varus - LCL: Negative Comments: Pt. very gaurded with testing (some ACL laxity, but tights HS right away) - Goals Goal 1:: LTG: Pt. to be I with HEP. Goal 2:: STG: Pt. to have increased ROM of R Knee to 0-0-120deg Goal Time Frame: 2-4 Weeks Goal 3:: STG: Pt. to have decreased edema in R LE. Goal Time Frame: 2-4 Weeks Goal 4:: LTG: Pt. to ambulate with normalized pattern without increase in symptoms. Goal Time Frame: 2-4 Weeks Goal 5:: LTG: Pt. to have increased RLE strength increased by 1/2 grade throughout effected musculature. Goal Time Frame: 4-6 Weeks - Rehabilitation Potential Physical Therapy Diagnosis: Pt. has signs and symptoms consistent with R knee pain. Pt. c/o increased medial joint line pain adn media compartment. Due to mech of injury I would suspect ACL tear without meniscal involvement, but due to HS guarded, special testing was hard to determine. She does not appear to have meniscal pain, but I would suggest ACL pathology. Hard to tell if she has a tear or a sprain of this ligament. MRI tomorrow. Rehabilitation Potential: Fair - Anticipated Interventions Patient/Client Instruction: Educate patient on: Condition, Plan of Care, Risk Factors, Benefits of Fitness Program For the Purpose of:: To improve decision making, To facilitate caregiver knowledge, To improve self management, To prevent re-injury, To improve ability to perform tasks related to life management, To improve tolerance to ADL's Therapeutic Exercise to Include: Strength training, Power training, Body mechanics, Postural training, Flexibilty training, Gait and locomotor training, Passive ROM, Active ROM For the Purpose of:: To decrease pain, To decrease swelling/inflammation, To increase ROM, To improve nutrient delivery to tissue, To increase oxygenation perfusion, To improve muscle performance and motor function, To improve ability to perform ADL's TENS: Yes Cryotherapy (ice pack, ice massage): Yes Vasopneumatic device: Yes For the Purpose of:: To decrease pain, To decrease swelling/inflammation, To increase ROM, To improve nutrient delivery to tissue, To increase oxygenation perfusion Thank you for the opportunity to evaluate your patient. For Medicare and Medicare HMO plans, please review the plan of care and approve it. It will need to be FAXED BACK to us at [phone] for Medicare purposes. For Medicare only, by signing this I certify the plan of care. Please let me know if there are questions or concerns regarding this plan of care. Physician Signature: _Date: <Electronically signed by Lew Lackey DPT> 12/26/19 0849 CC: EMBOSSING PRESS OPERATOR MOLDED GOODSJhon Simms; Dr. Rachel Lo, DO CLS Signed Rachel Lo Start: 12-26-2019 End: 12-26-2019 Lower Ext Joint Only (Routine) Comments: See Note; NOTES: [facility] Services [address] [place] [address] Lower Ext Joint Only (Routine) MR#: [id number] Acct: [id number] Name: AFSHAN DON Rep #: [id number] : 1980 F 39 From: Calvin Faustin n DO PCP: Dr. Rachel Lo, DO Status: REG CLI Study: Lower Ext Joint Only (Routine) Date of Exam: 0 12/26/19 Exam# [id number] Ordering Dr: Debra SimmsC STUDY: MRI LEFT KNEE REASON FOR EXAM: Female, 39 years old. Right knee pain. Pain medially. Injury 3 days ago. TECHNIQUE: Standardized fat and water weighted pulse sequences were obtained in all 3 orthogonal planes. COMPARISON: X-ray dated December 24, 2019.. FINDINGS: Patellofemoral articular cartilage preserved. Lateral compartment articular cartilage preserved. Medial compartment grade 2 cartilage loss. Bone contusion/edema at the posterior lateral tibial corner (sagittal image 8 series 4). No acute fracture. No acute dislocation. No acute bone destruction. Anterior cruciate ligament rupture (sagittal images 14 and 15 series 4). Normal posterior cruciate ligament. Lateral meniscus intact. Medial meniscus intact. Low-grade medial collateral ligament sprain without tear. Moderate volume joint effusion. Moderate-sized leaking popliteal cyst. Mild/moderate soft tissue swelling. Normal distal semimembranosus, gracilis and semitendinosus tendons. Normal proximal tibiofibular articulation. Normal lateral collateral (fibular) ligament. Normal popliteus tendon. Normal biceps femoris tendon. Normal medial and lateral patellar retinaculum. Normal quadriceps tendon. Normal patellar tendon. Normal Hoffa''s fat pad. MRI/Lower Ext Joint Only (Routine) IMPRESSION: ACL tear with corresponding bone contusion Low-grade MCL sprain without tear Medial compartment mild cartilage loss Moderate volume joint effusion, moderate-sized leaking popliteal cyst and soft tissue swelling Electronically Signed: Calvin Warren DO at 8:22 EDT Tel , Service support , CC: MARY Simms; Dr. Rachel Lo DO Cad Design Engineer: Signed Kiesha Mendez Work Phone: Start: 12-24-2019 End: 12-25-2019 Knee 4 or More Views Comments: See Note; NOTES: [facility] Imaging Services [address] [place] [address] Knee 4 or More Views MR#: [id number] Acct: [id number] Name: AFSHAN DON Rep #: [id number] : 1980 F 39 From: Carina Barton MD PCP: Dr. Rachel Lo DO Status: REG CLI Study: Knee 4 or More Views Date of Exam: 12/24/19 Exam# [id number] Ordering Dr: Debra Simms STUDY: X-RAY - RIGHT KNEE REASON FOR EXAM: Female, 39 years old. Right knee pain, hyperextended knee getting down off a gate today, medial knee pain, swelling posterior TECHNIQUE: 4 view(s) of the knee. COMPARISON: None. FINDINGS: Normal visualized distal femur. Normal visualized proximal tibia and fibula. Normal proximal tibiofibular articulation. There is minimal narrowing of the medial compartment. Normal lateral femorotibial compartment. On the sunrise view there is a widened appearance of the medial aspect of the patellofemoral space. There is multiple soft tissue edema. There is a small joint effusion. RAD/Knee 4 or More Views IMPRESSION: There is a relative widened appearance of medial side of the patellofemoral compartment which may represent possibility of ligamentous injury including the patellar retinaculum. There is a small joint effusion. Could consider further evaluation with MRI for further evaluation to exclude soft tissue ligamentous injury. Electronically Signed: Carina Barton MD at 4:41 EDT Tel , Service support , CC: MARY Simms; Dr. Rachel Lo DO Cad Design Engineer: Signed Debra Simms Work Phone: Start: 03-26-2019 End: 03-26-2019 PT D/C Summary (1) Comments: See Note; NOTES: [facility] [address] [place] [address] / REHABILITATION SERVICES DISCHARGE SUMMARY MR#: [id number] Acct: [id number] Name: AFSHAN DON Rep #: [id number] : 1980 38 From: Calvin Murdock DPT, OCS, CSCS Referring Dr.: Rachel Lo DO Status: REG RCR Insurance: [facility] SELF PAY INSURANCE HP - PT D/C Summary It has been my pleasure to treat AFSHAN DON under orders from Rachel Lo DO, for the diagnosis of L hip pain for a total of 4 visit(s). Discharge Date: 03/25/19 Please see the following information for a summary of their discharge status. - Subjective Subjective: Been doing well with exercises. Current exercises. No hip pain in the last two weeks. Getting stronger. Other activities normal. No f/u scheduled. - Pain L lateral hip Pain Intensity (Out of 10): 0 - Overall Improvement % Improvement: 99 - Objective Objective/Function: Full aROM B hips without limitations. Strength L hip is 4+/5 without pain. Full squat today without pain or hesitation. Unwilling to do a burpee today. - Goals Goal 1:: Pt I in appropriate hip stretches and strength to abolish pain. Goal Progress: Goal Met Goal 2:: Patient able to squat fully without pain to do burpees comfortably Goal Progress: Goal Met Goal 3:: Pt feel 90% back to normal with activity Goal Progress: Goal Met - Plan Plan: d/c - D/C Information Discharge Comments: Normal acitviity and no pain. I in continued HEP. If there are questions or concerns regarding this patient's physical therapy, please feel free to call me at [phone]. Thank you for the referral of this patient. Sincerely, Calvin Murdock, KAYT, OCS, CSCS <Electronically signed by HOSSEIN Cooley DPT, CSCS> 03/26/19 1845 CC: Rachel Lo DO EBG Signed Rachel Lo Start: 01-03-2019 End: 01-03-2019 Inital Evaluation (1) - PT Comments: See Note; NOTES: [facility] [address] [place] [address] / REHABILITATION SERVICES INITIAL EVALUATION MR#: [id number] Acct: [id number] Name: AFSHAN DON Rep #: [id number] : 1980 38 From: HOSSEIN Cooley DPT, ETHAN Referring Dr.: Rachel Lo DO Status: REG RCR Insurance: [facility] [employer] [facility] SELF PAY INSURANCE Patient's Visit Information AFSHAN DON is a 38 year old F referred to Physical Therapy by Rachel Lo DO with a diagnosis of L hip pain. Date of Evaluation: 01/02/19 Physical Therapist: Calvin Murdock DPT, HOSSEIN, CSCS - Visit Plan Frequency: 1-3x/week Duration: 4-6 Weeks Plan: weekly to start to progress home stretches (add ITB) adn hip stabs(clamshells, SLR abd ext, SL bicycle, inchworms etc.) Increase to 3xweek for rollout and stretch and in clinic strength . - Subjective Findings: L hip has hurt forever. Went to doctor for migraines. X rays were normal. Doctor thinks it is muscle imbalance. Pain is laterally at hip , intermittent, insisdious onset but worsening frequency. Worse with burpees, worse with crossing L over Right. Sationary bike and rwoer hurt. 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 No sitting at work. Pain lingers into evening. Lying on that side at night can hurt at times. Basic ADLs are fine. They can hurt but no problem. Chiropractor has helped short term. - Pain L lateral hip Pain Intensity (Out of 10): 0 Pain Intensity Range: 0, 4 - Objective Walks normal, trasnffers normal, steps normal without pain today. - hip scour. Tightness in external rotatiors of hip, Some pain /stretchy end range of ext rotationa dn internal rotation transiently. Piriformis mod tight, ITB min tight L. 2/3 reflexes patella and achilles. Sensation LE WNL to gross light touch. Strength ankels and knees 4+/5, hip abd L 4-, ext 3+, add 5/5, flexion 4/5 all without pain in neutral position. No tenderness in soft tissue of hip. LB AROM WFL and without pain. - Goals Goal 1:: Pt I in appropriate hip stretches and strength to abolish pain. Goal Time Frame: 4-6 Weeks Goal 2:: Patient able to squat fully without pain to do burpees comfortably Goal Time Frame: 4-6 Weeks Goal 3:: Pt feel 90% back to normal with activity Goal Time Frame: 4-6 Weeks - Rehabilitation Potential Physical Therapy Diagnosis: L hip pain. Likely muscle tightness adn imbalance. Rehabilitation Potential: Good - Anticipated Interventions Patient/Client Instruction: Educate patient on: Condition For the Purpose of:: To decrease pain, To increase tolerance to activity/condition/position, To improve ability of physical actions for home/community/work/leisure Therapeutic Exercise to Include: Strength training, Flexibilty training, Passive ROM, Active ROM For the Purpose of:: To decrease pain, To increase tolerance to activity/condition/position, To improve gait and locomotor functions Thank you for the opportunity to evaluate your patient. For Medicare and Medicare HMO plans, please review the plan of care and approve it. It will need to be FAXED BACK to us at [phone] for Medicare purposes. For Medicare only, by signing this I certify the plan of care. Please let me know if there are questions or concerns regarding this plan of care. Physician Signature: _Date: <Electronically signed by Calvin Murdock DPT, OCS, CSCS> 01/03/19 0926 CC: Rachel Lo DO EB Signed Rachel Lo Start: 12-24-2018 End: 12-24-2018 HIP, UNI W/ Pelvis 2-3 Views Comments: See Note; NOTES: [facility] Imaging Services [address] [place] [address] HIP, UNI W/ Pelvis 2-3 Views MR#: [id number] Acct: [id number] Name: AFSHAN DON Rep #: [id number] : 1980 F 38 From: Yaya Patiño MD PCP: Rachel Lo DO Status: REG CLI Study: HIP, UNI W/ Pelvis 2-3 Views Date of Exam: 12/24/18 Exam# [id number] Ordering Dr: Rachel Lo DO STUDY: X-RAY - PELVIS AND LEFT HIP REASON FOR EXAM: Female, 38 years old. Pain, decreased range of motion TECHNIQUE: 3 views of the pelvis and hip. COMPARISON: None. FINDINGS: There is a non-specific bowel gas pattern. Normal visualized soft tissue structures. Normal bilateral iliac wings, sacroiliac joints and visualized sacrum. Normal bilateral superior and inferior pubic rami. Normal pubic symphysis. Normal bilateral ischial tuberosities. Normal visualized femoral head. Normal acetabulum. Normal hip joint. RAD/HIP, UNI W/ Pelvis 2-3 Views IMPRESSION: Normal x-ray examination of the pelvis and hip. Electronically Signed: Oz Patiño MD at 14:51 EDT , Service support , CC: Rachel Lo DO Cad Design Engineer: Signed Rachel Lo Work Phone: Start: 06-05-2018 End: 06-05-2018 Breast w/o and/or W Cont Bilat Comments: See Note; NOTES: [facility] Imaging Services [address] [place] [address] Breast w/o and/or W Cont Bilat MR#: [id number] Acct: [id number] Name: AFSHAN DON Rep #: [id number] : 1980 F 37 From: Ricky George MD PCP: Rachel Lo DO Status: REG CLI Study: Breast w/o and/or W Cont Bilat Date of Exam: 06/05/18 Exam# [id number] Ordering Dr: Aruna Saucedo MD STUDY: BILATERAL BREAST MR WITHOUT AND WITH CONTRAST REASON FOR EXAM: Female, 37 years old. History of breast cancer in grandmother. Dense breasts on mammography. TECHNIQUE: Multi-sequence multi-echo imaging of both breasts was performed with a dedicated breast coil. T1-weighted and T2-weighted images were performed before the administration of contrast. T1-weighted images were also performed after the administration of 18 mL of Dotarem contrast intravenously without complications. COMPARISON: Bilateral mammograms dated May 08, 2018. FINDINGS: RIGHT BREAST: The breast tissue is fatty with no background enhancement. There are no abnormal enhancing masses or areas of non-mass enhancement in the right breast. LEFT BREAST: The breast tissue is fatty with no background enhancement. There are no abnormal enhancing masses or areas of non-mass enhancement in the left breast. There are no enlarged or abnormal lymph nodes. There is no abnormality in the visualized regions of the chest or liver. MRI/Breast w/o and/or W Cont Bilat IMPRESSION: No abnormality noted on the breast MRI examination with contrast. CATEGORY: BIRADS Category 1: Negative. A letter regarding these results will be sent to the patient by the facility within 30 days. Electronically Signed: Ricky George MD at 12:10 EDT , Service support , CC: Aruna Saucedo MD; Rachel Lo DO Cad Design Engineer: Signed Rachel Lo Start: 05-08-2018 End: 05-08-2018 SCREENING MAMM (CAD), BILAT Comments: See Note; NOTES: [facility] Imaging Services [address] [place] [address] SCREENING MAMM (CAD), BILAT MR#: [id number] Acct: [id number] Name: AFSHAN DON Rep #: [id number] : 1980 F 37 From: Chas Rooney MD PCP: Rachel Lo DO Status: REG CLI Study: SCREENING MAMM (CAD), BILAT Date of Exam: 05/08/18 Exam# [id number] Ordering Dr: Aruna Saucedo MD MAMMOGRAPHY - BILATERAL SCREENING REASON FOR EXAM: Female, 37 years old. Routine annual screening examination. PERTINENT HISTORY: Grandmother with breast cancer. TECHNIQUE: Digital bilateral breast myra (3D mammographic acquisition) in the CC and MLO projections. 2-D mediolateral oblique (MLO) and craniocaudad (CC) views of both breasts were obtained. CAD: Full Field Digital Mammography with Computer Added Detection was performed. COMPARISON: None. Baseline examination. FINDINGS: Breast Composition: The breasts are heterogeneously dense, which may obscure small masses. There are no dominant masses or suspicious calcifications. No other significant abnormalities are identified. BI/SCREENING MAMM (CAD), BILAT IMPRESSION: Negative screening mammogram. Yearly followup mammogram recommended. (A) ASSESSMENT CATEGORY: BIRADS Category 1: Negative. A letter regarding these results will be sent to the patient by the facility within 30 days. Approximately 10% of breast cancers are not detected by mammography. A normal mammogram should not delay biopsy of a clinically suspicious abnormality. [id number] Electronically Signed: Chas Rooney MD at 8:26 EDT Tel [phone], Service support , CC: Aruna Saucedo MD; Rachel Lo DO Cad Design Engineer: Signed Rachel Lo Start: 08-09-2016 End: 08-09-2016 PT Discharge Summary Comments: See Note; NOTES: [facility] Physical Therapy [place] [id number] [place], [place] [address] Fax REHABILITATION SERVICES DISCHARGE SUMMARY MR#: [id number] Acct: [id number] Name: AFSHAN DON Rep #: [id number] : 1980 35 From: Anaid Cordova Referring Dr.: Rachel Lo DO Status: PRE RCR Eval Date: Discharge Date: DATE OF SERVICE: REFERRING PHYSICIAN: Rachel oL D.O. This patient was seen on 09/07/2015 with a diagnosis of scoliosis. She was treated with 6 sessions of deep tissue massage focusing on her upper body, cervical, thoracic and lumbar regions of her back. The patient responded well to treatment reporting a decrease in pain and muscle tension. At this time, I am discharging the patient from our care at the [facility] facility. Anaid Cordova LMT T: NTS JOB: [id number] <Electronically signed by Anaid Cordova > 08/09/16 1224 CC: Rachel Lo DO Signed Rachel Lo Start: 02-12-2015 End: 02-12-2015 Foot 2 Views Comments: See Note; NOTES: [facility] Imaging Services [address] [place] [address] Radiology Report MR#: [id number] Acct: [id number] Name: AFSHAN DON Rep #: [id number] : 1980 F 34 From: Chas Rooney MD PCP: Rachel Lo DO Status: REG CLI Study: Foot 2 Views Date of Exam: 02/12/15 Exam# [id number] Ordering Dr: Marlena Rodriguez STUDY: X-RAY - LEFT FOOT CLINICAL: Female, 34 years old. Calcaneal pain. TECHNIQUE: 3 view(s) of the foot. COMPARISON: None. FINDINGS: Normal talus, calcaneus, and tarsal bones. Normal visualized subtalar, talonavicular, calcaneocuboid, tarsal and tarsometatarsal articulations. Normal metatarsi. Normal metatarsophalangeal joint of the great toe. Normal tibial and fibular sesamoid bones. Normal interphalangeal joint of the great toe. Normal phalanges of the great toe. Normal second through fifth metatarsophalangeal joints. Normal interphalangeal joints and phalanges of the lesser toes. The soft tissue structures are unremarkable. IMPRESSION: Normal x-ray examination of the foot. Electronically Signed: Chas Rooney MD at 8:16 EDT Tel [phone], Service support [phone], RAD/Foot 2 Views IMPRESSION: Normal x-ray examination of the foot. Electronically Signed: Chas Rooney MD at 8:16 EDT Tel [phone], Service support [phone], CC: Rachel Rodriguez DPDainel Cad Design Engineer: Signed Rachel Lo Start: 08-27-2014 End: 09-16-2014 PT Discharge Summary Comments: See Note; NOTES: [facility] Therapy [address] [place] [address] Fax REHABILITATION SERVICES DISCHARGE SUMMARY MR#: [id number] Acct: [id number] Name: AFSHAN DON Rep #: [id number] : 1980 33 From: Anaid Cordova Referring Dr.: Rosmery Holden MD Status: DIS RCR Eval Date: Discharge Date: 08/13/14 DATE OF SERVICE: REFERRING PHYSICIAN: Dr. Holden This patient was seen for massotherapy evaluation on May 07, 2014, with a diagnosis of migraines. She was treated with 7 sessions of moderate to deep tissue massage to the upper body focusing on her neck, shoulders and interscapular area. Throughout treatment, she reported a decrease in pain and muscle tension as well as a decrease in the frequency and intensity of her headaches. At this time, I am discharging the patient from our care at the [facility]. Anaid Cordova LMT T: NTS JOB: [id number] <Electronically signed by Anaid Cordova > 08/27/14 0747 CC: Signed Rachel Lo Start: 05-11-2007 Antibody screen Rachel Teresita Start: 10-29-2006 Antibody screen Rachel Teresita Start: 10-17-2006 Antibody screen Rcahel Teresita Start: 07-04-2006 Antibody screen Rachel Teresita Plan of Treatment Date Care Activity Detail Author Start: 04-28-2023 Provider Instruction s for Treatment [facility] Work Phone: Start: 04-27-2023 Procedure Education Eprescribe d prescriptions (G8553) [facility]; [facility] Work Phone: Start: 02-27-2023 Procedure Education Eprescribe d prescriptions (G8553) [facility]; [facility] Work Phone: Start: 01-30-2023 Procedure Education Eprescribe d prescriptions (G8553) [facility]; [facility] Work Phone: Start: 01-30-2023 Provider Instruction s for Treatment [facility]; [facility] Work Phone: Start: 01-19-2023 Procedure Education Eprescribe d prescriptions (G8553) [facility]; [facility] Work Phone: Start: 01-19-2023 Provider Instruction s for Treatment Diet, Exercise, and Wt loss [facility]; [facility] Work Phone: Start: 01-04-2023 Procedure Education Eprescribe d prescriptions (G8553) [facility]; [facility] Work Phone: Start: 01-04-2023 Provider Instruction s for Treatment [facility]; [facility] Work Phone: Start: 12-15-2022 Procedure Education Eprescribe d prescriptions (G8553) [facility]; [facility] Work Phone: Start: 12-15-2022 Provider Instruction s for Treatment [facility]; [facility] Work Phone: Start: 11-25-2022 Procedure Education Eprescribe d prescriptions (G8553) [facility]; [facility] Work Phone: Start: 11-25-2022 Provider Instruction s for Treatment [facility]; [facility] Work Phone: Start: 11-11-2022 Procedure Education Eprescribe d prescriptions (G8553) [facility]; [facility] Work Phone: Start: 05-09-2022 Procedure Education Eprescribe d prescriptions (G8553) [facility]; [facility] Work Phone: Start: 05-09-2022 Provider Instruction s for Treatment Reviewed Lab [facility]; [facility] Work Phone: Start: 05-06-2022 Assay of thyroid stimulating hormone tsh TSH (THYROID STIMULATING HORMONE) (62103) [facility]; [facility] Work Phone: Start: 08-24-2021 Procedure Education Eprescribe d prescriptions (G8553) [facility]; [facility] Work Phone: Start: 04-15-2021 Procedure Education Eprescribe d prescriptions (G8553) [facility]; [facility] Work Phone: Start: 04-15-2021 Provider Instruction s for Treatment [facility]; [facility] Work Phone: Start: 04-15-2021 Assay of thyroid stimulating hormone tsh TSH (76031) [facility]; [facility] Work Phone: Start: 09-11-2020 Procedure Education Eprescribe d prescriptions (G8553) [facility]; [facility] Work Phone: Start: 09-11-2020 C-reactive protein C-Reactive Protein (87003) [facility]; [facility] Work Phone: Comment on above: Fax to [facility] Start: 09-11-2020 CRP [Mass/Vol] C-Reactive Pro tein (43348) [facility]; [facility] Work Phone: Comment on above: Fax to [facility] Start: 09-11-2020 Sedimentation rate r bc automated Sedimentation Rate-ESR (72423) [facility]; [facility] Work Phone: Comment on above: fax to hospital to y Start: 09-07-2020 Procedure Education Eprescribe d prescriptions (G8553) [facility]; [facility] Work Phone: Start: 09-07-2020 Provider Instruction s for Treatment Follow up in 3 days [facility]; [facility] Work Phone: Start: 09-07-2020 Angiotensin i-converting enzyme ANGTENSIN 1-CONVRT ENZYM (85172) [facility]; [facility] Work Phone: Start: 09-07-2020 Antibody borrelia burgdorferi lyme disease Lyme Disease Antibody W/ Reflex (32643) [facility]; [facility] Work Phone: Start: 09-07-2020 Cyclic citrullinated peptide antibody CCP ANTIBODY (82796) [facility]; [facility] Work Phone: Start: 09-07-2020 Sedimentation rate r bc non-automated SED RATE ERYTHROCYTE (59192) [facility]; [facility] Work Phone: Start: 09-07-2020 C-reactive protein C-REACTIVE PROTEIN (55389) [facility]; [facility] Work Phone: Start: 09-07-2020 CRP [Mass/Vol] C-REACTIVE PRO TEIN (68843) [facility]; [facility] Work Phone: Start: 09-07-2020 Assay of thyroid stimulating hormone tsh TSH (50178) [facility]; [facility] Work Phone: Start: 09-07-2020 TSH Qn TSH (66354) [facility] [place] [facility]; [facility] Work Phone: Start: 09-07-2020 Rheumatoid factor quantitative RHEUMATOID FACTOR-QUANT (13192) [facility]; [facility] Work Phone: Start: 09-07-2020 Antinuclear antibodi es adama ADAMA (ANTINUCLEAR ANTIBODY) (16836) [facility]; [facility] Work Phone: Start: 09-07-2020 Nuclear Ab IF (S) [Titer] AADMA (ANTINUCLEAR ANTIBODY) (83526) [facility]; [facility] Work Phone: Start: 09-07-2020 Comprehensive metabo lic panel METABOLIC PANEL, COMPREHENSIVE (54539) [facility]; [facility] Work Phone: Start: 09-07-2020 Blood count manual c ell count each CBC with auto diff (35288) [facility]; [facility] Work Phone: Start: 09-07-2020 Immunoassay analyte qual/semiqual multiple step P-ANCA & C-ANCA (ANCA PROFILE) 36561 x2 and 21044 x2 [facility]; [facility] Work Phone: Start: 04-30-2020 Procedure Education Eprescribe d prescriptions (G8553) [facility] Work Phone: Start: 04-30-2020 Provider Instruction s for Treatment [facility] Work Phone: Start: 12-27-2019 Procedure Education Eprescribe d prescriptions (G8553) [facility] Work Phone: Start: 12-27-2019 Provider Instruction s for Treatment Continue Current Prescription(s) [facility] Work Phone: Start: 12-24-2019 Procedure Education Eprescribe d prescriptions (G8553) [facility] Work Phone: Start: 05-02-2019 Procedure Education Eprescribe d prescriptions (G8553) [facility] Work Phone: Start: 05-02-2019 Provider Instruction s for Treatment [facility] Work Phone: Start: 05-02-2019 Lipoprotein blood qu an numbers & subclasses NMR Profile (16347) [facility] Work Phone: Start: 05-02-2019 Glucose [Mass/Vol] GLUCOSE (90844) [facility] Work Phone: Start: 05-02-2019 Glucose quantitative blood xcpt reagent strip GLUCOSE (20151) [facility]; [facility] Work Phone: Start: 05-02-2019 Hpv, dna, amp probe HPV automatic (3 7380) [facility] Work Phone: Start: 02-21-2019 Patient Education Diarrhea, Acute, A dult [facility] Work Phone: Start: 02-21-2019 Procedure Education Eprescribe d prescriptions (G8553) [facility] Work Phone: Start: 02-21-2019 Provider Instruction s for Treatment Follow up if no improvement or if symptoms worsen [facility] Work Phone: Start: 02-21-2019 Comprehensive metabo lic panel METABOLIC PANEL, COMPREHENSIVE (03229) [facility] Work Phone: Start: 02-21-2019 Ova&parasites direct smears concentration & id OVA & PARASITE DIR SMEAR (12628) [facility] Work Phone: Start: 02-21-2019 Blood occult peroxid ase actv qual feces 1 deter OCCULT BLOOD FECES SCREEN (36031) [facility] Work Phone: Start: 02-21-2019 Iaad ia clostridium difficile toxin Clostridium difficile Toxin A+B, EIA (31152) [facility] Work Phone: Start: 02-21-2019 Leukocyte assmt feca l qual/semiquantitative LEUKOCYTE COUNT, FECAL (70159) [facility] Work Phone: Start: 02-21-2019 Cul bact stool aerob ic isol salmonella&shigell ANGELINA CULTURE-STOOL (05561) [facility] Work Phone: Start: 02-21-2019 Comprehensive metabo lic panel METABOLIC PANEL, COMPREHENSIVE (49182) [facility] Work Phone: Start: 02-21-2019 Blood count complete automated CBC & PLATELETS (AUTO) (81743) [facility] Work Phone: Start: 07-17-2018 Procedure Education Eprescribe d prescriptions (G8553) [facility] Work Phone: Start: 07-17-2018 Provider Instruction s for Treatment Follow up if no improvement or if symptoms worsen [facility] Work Phone: Start: 06-16-2017 Provider Instruction s for Treatment [facility] Work Phone: Start: 04-19-2017 Procedure Education Eprescribe d prescriptions (G8553) [facility] Work Phone: Start: 04-19-2017 Provider Instruction s for Treatment [facility] Work Phone: Start: 05-02-2016 Provider Instruction s for Treatment [facility] Work Phone: Start: 07-03-2015 Procedure Education Eprescribe d prescriptions (G8553) [facility] Work Phone: Start: 05-05-2015 Procedure Education Eprescribe d prescriptions (G8553) [facility] Work Phone: Start: 05-05-2015 Provider Instruction s for Treatment Reviewed Lab [facility] Work Phone: Start: 08-06-2014 Patient Education Flu (Influenza) *: flu [facility] Work Phone: Start: 08-06-2014 Provider Instruction s for Treatment Follow up if no improvement or if symptoms worsen [facility] Work Phone: Start: 05-14-2014 Provider Instruction s for Treatment Reviewed Lab [facility] Work Phone: Start: 01-23-2014 Procedure Education Eprescribe d prescriptions (G8553) [facility] Work Phone: Start: 01-23-2014 Provider Instruction s for Treatment [facility] Work Phone: Start: 01-23-2014 Cytp cerv/vag auto t hin layer prep mnl screen Thin prep Pap (67542) [facility] Work Phone: Start: 01-23-2014 Hpv, dna, amp probe HPV automatic (3 0018) [facility] Work Phone: Start: 07-25-2013 Provider Instruction s for Treatment Continue Current Prescription(s) [facility] Work Phone: Start: 07-04-2013 Patient Education Weight Loss Diets *: diet [facility] Work Phone: Start: 07-04-2013 Provider Instruction s for Treatment Follow up in 2 weeks [facility] Work Phone: Start: 06-20-2013 Patient Education Obesity *: b robyn fat percent [facility] Work Phone: Start: 06-20-2013 Provider Instruction s for Treatment Follow up in 2 weeks [facility] Work Phone: Start: 05-24-2013 Provider Instruction s for Treatment [facility] Work Phone: Start: 05-24-2013 Cul bact xcpt urine blood/stool aerobic isol CULTURE, SPUTUM (86385) [facility] Work Phone: Start: 05-20-2013 Provider Instruction s for Treatment [facility] Work Phone: Start: 05-02-2013 Provider Instruction s for Treatment Reviewed Lab [facility] Work Phone: Start: 06-28-2012 Patient Education Obesity *: l osing weight [facility] Work Phone: Start: 06-28-2012 Provider Instruction s for Treatment Follow up in 2 weeks [facility] Work Phone: Start: 04-23-2012 Patient Education Cancer Preve ntion and Diet: nutrition [facility] Work Phone: Start: 01-04-2012 Patient Education Poison [place], [place], and [place]: poison tasneem [facility] Work Phone: Start: 09-05-2011 Provider Instruction s for Treatment Diet, Exercise, and Wt loss [facility] Work Phone: Start: 01-28-2011 25 hydroxy includes fractions if performed CALCIFIDIOL (37044) VIT D 25 [facility] Work Phone: Start: 01-28-2011 Assay of thyroid stimulating hormone tsh TSH (22614) [facility]; [facility] Work Phone: Start: 01-28-2011 Thyrotropin Qn TSH (92109) [facility] Work Phone: Start: 01-28-2011 Blood count complete automated CBC (Auto) (15294) [facility] Work Phone: Start: 01-28-2011 Comprehensive metabo lic panel Metabolic Panel, Comprehensive (80899) [facility] Work Phone: Start: 08-30-2010 Iaadiadoo streptococ cus group a Rapid Strep Test, Office (40224) [facility]; [facility] Work Phone: Start: 08-30-2010 S. pyogenes Ag IA Ql (Unsp spec) Rapid Strep Test, Office (03325) [facility] Work Phone: Start: 01-15-2010 ANCA-C (ANTI NEUTROP HIL CYTOPLASMIC ANTIBODY) ANCA-C (ANTI NEUTROPHIL CYTOPLASMIC ANTIBODY) [facility] Work Phone: Start: 01-15-2010 ANCA-P (ANTI NEUTROP HIL CYTOPLASMIC ANTIBODY) ANCA-P (ANTI NEUTROPHIL CYTOPLASMIC ANTIBODY) [facility] Work Phone: Start: 01-15-2010 Provider Instruction s for Treatment *Conjunctivitis Education [facility] Work Phone: Start: 12-15-2009 Provider Instruction s for Treatment *Antibiotic Usage Education - Female [facility] Work Phone: Start: 10-22-2009 Iadna nos amplified probe tq each organism MICROB ID NCL AC MO+AMP (19178) [facility] Work Phone: Start: 10-22-2009 Cul bact xcpt urine blood/stool aerobic isol ANGELINA CULTURE-OTHER (46211) [facility] Work Phone: Start: 07-01-2009 Provider Instruction s for Treatment [facility] Work Phone: Start: 04-02-2009 Provider Instruction s for Treatment Poison [place] Education [facility] Work Phone: Start: 11-20-2008 Provider Instruction s for Treatment FOLLOW UP IN 1 MONTH [facility] Work Phone: Start: 09-29-2008 Provider Instruction s for Treatment [facility] Work Phone: Start: 05-05-2008 Provider Instruction s for Treatment [facility] Work Phone: Start: 01-17-2008 Lipid panel LIPID PANEL (76325) [facility] Work Phone: Comment on above: SCREEN Start: 05-29-2007 Provider Instruction s for Treatment Discussed with Patient [facility] Work Phone: Start: 04-30-2007 Provider Instruction s for Treatment [facility] Work Phone: Start: 01-30-2007 Cryoglobulin qualitative/semi-quanti tative CRYOGLOBULIN (77260) [facility] Work Phone: Start: 01-30-2007 Antinuclear antibodi es adama ADAMA (ANTINUCLEAR ANTIBODY) (36044) [facility]; [facility] Work Phone: Start: 01-30-2007 Nuclear Ab IF titer (S) ADAMA (A NTINUCLEAR ANTIBODY) (95301) [facility] Work Phone: Start: 01-30-2007 Sedimentation rate r bc non-automated Sed Rate Erythrocyte (13388) [facility] Work Phone: Start: 01-30-2007 Blood count complete automated CBC (Auto) (95643) [facility] Work Phone: Start: 01-30-2007 Comprehensive metabo lic panel Metabolic Panel, Comprehensive (63506) [facility] Work Phone: [facility] Work Phone: [facility] Work Phone: [facility] Work Phone: [facility] Work Phone[facility] Work Phone[facility] Work Phone[facility] Work Phone: [facility] Work Phone: [facility] Work Phone: [facility] Work Phone: [facility] Work Phone: [facility] Work Phone: [facility] Work Phone: [facility] Work Phone: [facility] Work Phone: [facility] Work Phone: [facility] Work Phone: [facility] Work Phone: [facility] Work Phone: [facility] Work Phone[facility] Work Phone: [facility] Work Phone: [facility] Work Phone: [facility]; [facility] Work Phone: [facility]; [facility] Work Phone: [facility]; [facility] Work Phone: [facility]; [facility] Work Phone: [facility]; [facility] Work Phone: [facility]; [facility] Work Phone: Immunizations Immunization Date Immunization Notes Care Provider [facility] 06-12-2024 influenza, seasonal, injectable, preservative free Dr. Rachel Lo DO Work Phone: [facility] 05-11-2023 influenza, injectabl e, quadrivalent, preservative free [facility] 05-13-2022 influenza, injectabl e, quadrivalent, preservative free [facility] 05-13-2022 influenza, seasonal, injectable [facility] 06-29-2021 Covid (Moderna) [facility] Work Phone: 05-12-2021 influenza, injectabl e, quadrivalent, preservative free [facility] 05-12-2021 influenza, seasonal, injectable [facility] 09-14-2020 Covid (Moderna) [facility] 08-17-2020 COVID-19 (Moderna) Rachel Velez [facility]; [facility] Work Phone: 08-14-2020 COVID-Moderna (100 MCG/0.5 ML) Rachel Lo DO Work Phone: [facility]; [facility] Work Phone: 05-13-2020 influenza, injectabl e, quadrivalent, preservative free [facility] 05-13-2020 influenza, seasonal, injectable [facility] 05-09-2019 influenza, injectabl e, quadrivalent, preservative free [facility] 05-09-2019 influenza, seasonal, injectable [facility] 05-28-2018 influenza, injectabl e, quadrivalent, preservative free [facility] 05-28-2018 influenza, seasonal, injectable [facility] 05-11-2017 influenza, injectabl e, quadrivalent, preservative free [facility] 05-11-2017 influenza, seasonal, injectable [facility] 04-14-2017 influenza, seasonal, injectable Rachel Lo [facility] Work Phone: Comment on above: [facility] 05-12-2016 influenza, injectabl e, quadrivalent, preservative free [facility] 05-12-2016 influenza, seasonal, injectable [facility] 05-13-2015 influenza, injectabl e, quadrivalent, preservative free [facility] 05-13-2015 influenza, seasonal, injectable [facility] 05-22-2014 influenza, injectabl e, quadrivalent, preservative free [facility] 05-22-2014 influenza, seasonal, injectable [facility] 06-13-2013 Influenza virus vaccine [facility] Payers Date Payer Category Payer Self-pay [id number] 2022 Unknown [id number] 2016 [id number] 2006 Unknown [id number] 1982 Unknown [id number] Unknown Unknown [id number] [id number] Unknown [id number] [id number] Unknown [id number] [id number] [id number] Unknown [id number] [id number] [id number] Unknown [id number] [id number] [id number] Unknown [id number] [id number] [id number] Social History Date Type Detail Facility Caffeine Use Never smoker [facility] Work Phone: Comment on above: [employer] Full-time, [employer] , Lives with spouse Tobacco use: Never smoker. [facility] Work Phone: Comment on above: 01/04/12 Start: 08-24-2021 End: 11-02-2022 Tobacco smoking consumption unknown [facility] Tobacco use: Tobacco use: [facility]; [facility] Work Phone: Comment on above: 01/04/12 Start: 01-22-2020 Non-smoker [facility] Start: 1980 Sex Assigned At Female [facility] Start: 01-05-2024 Tobacco smoking status NHIS Never smoked tobacco (finding) [facility] Start: 11-07-2024 Sex Female (finding) [facility] Medical Equipment Procedure Code Equipment Code Equipment Origin al Text Equipment Identifier Dates Arthroscopy, knee, with meniscectomy ALLOGRAFT GRAFTLINK CONV PACK FDA Start: 01-29-2020 Arthroscopy, knee, with meniscectomy GRAFTLINK TS FDA Start: 01-29-2020 Arthroscopy, knee, with meniscectomy ALLOGRAFT GRAFTLINK CONV PACK FDA Start: 01-29-2020 Arthroscopy, knee, with meniscectomy GRAFTLINK TS FDA Start: 01-29-2020 Arthroscopy, knee, with meniscectomy ALLOGRAFT GRAFTLINK CONV PACK FDA Start: 01-29-2020 Arthroscopy, knee, with meniscectomy GRAFTLINK TS FDA Start: 01-29-2020 Arthroscopy, knee, with meniscectomy ALLOGRAFT GRAFTLINK CONV PACK FDA Start: 01-29-2020 Arthroscopy, knee, with meniscectomy GRAFTLINK TS FDA Start: 01-29-2020 Arthroscopy, knee, with meniscectomy ALLOGRAFT GRAFTLINK CONV PACK FDA Start: 01-29-2020 Arthroscopy, knee, with meniscectomy GRAFTLINK TS FDA Start: 01-29-2020 Arthroscopy, knee, with meniscectomy ALLOGRAFT GRAFTLINK CONV PACK FDA Start: 01-29-2020 Arthroscopy, knee, with meniscectomy GRAFTLINK TS FDA Start: 01-29-2020 Appendectomy, laparoscopic 45mm Vascular Reload FDA Start: 01-05-2024 Appendectomy, laparoscopic CLIP,HEMOLOCK MED WECK FDA Start: 01-05-2024 Appendectomy, laparoscopic DRESSING,SURGICEL 4x8 FDA Start: 01-05-2024 Appendectomy, laparoscopic RELOAD,STD 45 [id number] FDA Start: 01-05-2024 Appendectomy, laparoscopic 45mm Vascular Reload FDA Start: 01-05-2024 Appendectomy, laparoscopic CLIP,HEMOLOCK MED WECK FDA Start: 01-05-2024 Appendectomy, laparoscopic DRESSING,SURGICEL 4x8 FDA Start: 01-05-2024 Appendectomy, laparoscopic RELOAD,STD 45 [id number] FDA Start: 01-05-2024 Clinical Notes 07-17-2018 Note Date & Type Note Facility 07-17-2018 Microscopic obser vation Gram stain Nom (Sput) [facility]; [facility] Work Phone: Gram Stain Evaluation [facility] (Normal) Comment on above: This specimen is of good quality and is acceptable for routinebacterial culture. PATIENT NOT FASTINGP ERFORMED BY: [id number] [id number] Information: SRC:SP Evaluation note No assessment information availa [facility] Work Phone: Instructions Name Patient Instructions Indication:Tachycardia Start:15-Apr-2021 Instruction Type:Provider Instructions for Treatment How to Access Health Information Online using Patient Portal and 3rd [employer] Apps Indication:Tachycardia Start:15-Apr-2021 Instruction Type:Patient Education Patient Instructions Indication:Nonsmoker Start: Instruction Type:Provider Instructions for Treatment How to Access Health Information Online using Patient Portal and 3rd [employer] Apps Indication:Nonsmoker Start: Instruction Type:Patient Education Patient Instructions Indication:BMI 38.0-38.9,adult Start: 1 Instruction Type:Provider Instructions for Treatment How to Access Health Information Online using Patient Portal and 3rd [employer] Apps Indication:BMI 38.0-38.9,adult Start: 1 Instruction Type:Patient Education How to access health information online Indication:Nonsmoker Start: 0 Instruction Type:Patient Education How to access health information online - Detail Indication:Nonsmoker Start: 0 Instruction Type:Patient Education Patient Instructions Indication:Nonsmoker Start: 0 Instruction Type:Provider Instructions for Treatment How to access health information online Indication:Nonsmoker Start: 0 Instruction Type:Patient Education How to access health information online - Detail Indication:Nonsmoker Start: 0 Instruction Type:Patient Education Patient Instructions Indication:Nonsmoker Start: 0 Instruction Type:Provider Instructions for Treatment How to access health information online Indication:Nonsmoker Start: 0 Instruction Type:Patient Education How to access health information online - Detail Indication:Nonsmoker Start: 0 Instruction Type:Patient Education Patient Instructions Indication:Nonsmoker Start: 0 Instruction Type:Provider Instructions for Treatment How to access health information online Indication:Nonsmoker Start: Instruction Type:Patient Education How to access health information online - Detail Indication:Nonsmoker Start: Instruction Type:Patient Education Patient Instructions Indication:Nonsmoker Start: Instruction Type:Provider Instructions for Treatment How to access health information online Indication:BMI 34.0-34.9,adult Start: Instruction Type:Patient Education How to access health information online - Detail Indication:BMI 34.0-34.9,adult Start: Instruction Type:Patient Education Patient Instructions Indication:Diarrhea Start: Instruction Type:Provider Instructions for Treatment How to access health information online Indication:Nonsmoker Start: Instruction Type:Patient Education How to access health information online - Detail Indication:Nonsmoker Start: Instruction Type:Patient Education Patient Instructions Indication:Nonsmoker Start: Instruction Type:Provider Instructions for Treatment How to access health information online Indication:Nonsmoker Start:17-Jul-2018 Instruction Type:Patient Education How to access health information online - Detail Indication:Nonsmoker Start:17-Jul-2018 Instruction Type:Patient Education Patient Instructions Indication:Nonsmoker Start:17-Jul-2018 Instruction Type:Provider Instructions for Treatment How to access health information online Indication:BMI 33.0-33.9,adult Start:16-Jun-2017 Instruction Type:Patient Education How to access health information online - Detail Indication:BMI 33.0-33.9,adult Start:16-Jun-2017 Instruction Type:Patient Education Patient Instructions Indication:BMI 33.0-33.9,adult Start:16-Jun-2017 Instruction Type:Provider Instructions for Treatment How to access health information online - Detail Indication:Nonsmoker Start:19-Apr-2017 Instruction Type:Patient Education Patient Instructions Indication:Nonsmoker Start:19-Apr-2017 Instruction Type:Provider Instructions for Treatment How to access health information online - Detail Indication:Nonsmoker Start:19-Apr-2017 Instruction Type:Patient Education Patient Instructions Indication:Nonsmoker Start:19-Apr-2017 Instruction Type:Provider Instructions for Treatment How to access health information online - Detail Indication:Nonsmoker Start:13-Dec-2016 Instruction Type:Patient Education Patient Instructions Indication:Nonsmoker Start:13-Dec-2016 Instruction Type:Provider Instructions for Treatment obesity counseling Indication:Body mass index 35.0-35.9, adult Start: 6 Instruction Type:Provider Instructions for Treatment Patient Instructions Indication:Physical exam Start: 6 Instruction Type:Provider Instructions for Treatment How to access health information online Indication:Pharyngitis, acute Start: 5 Instruction Type:Patient Education How to access health information online - Detail Indication:Pharyngitis, acute Start: 5 Instruction Type:Patient Education Patient Instructions Indication:Pharyngitis, acute Start: 5 Instruction Type:Provider Instructions for Treatment How to access health information online Indication:Annual physical exam Start: 5 Instruction Type:Patient Education How to access health information online - Detail Indication:Annual physical exam Start: 5 Instruction Type:Patient Education Patient Instructions Indication:Annual physical exam Start: 5 Instruction Type:Provider Instructions for Treatment How to access health information online Indication:Weight gain Start: 4 Instruction Type:Patient Education How to access health information online - Detail Indication:Weight gain Start: 4 Instruction Type:Patient Education Patient Instructions Indication:Weight gain Start: 4 Instruction Type:Provider Instructions for Treatment Patient Instructions Indication:Annual physical exam Start:14-May-2014 Instruction Type:Provider Instructions for Treatment Patient Instructions Indication:Soft sore (chancroid) Start: 4 Instruction Type:Provider Instructions for Treatment Patient Instructions Indication:Family Planning Start: 4 Instruction Type:Provider Instructions for Treatment obesity counseling Indication:Weight gain Start: 3 Instruction Type:Provider Instructions for Treatment Patient Instructions Indication:Obesity Start: 3 Instruction Type:Provider Instructions for Treatment Patient Instructions Indication:Obesity Start:20-Jun-2013 Instruction Type:Provider Instructions for Treatment Patient Instructions Indication:Migraine with aura and without status migrainosus, not intractable Start:20-May-2013 Instruction Type:Provider Instructions for Treatment [facility]; [facility] Work Phone: Instructions* Name Dates Details Patient Instructions Indication:BMI 37.0-37.9, adult Start:24-Aug-2021 Instruction Type:Provider Instructions for Treatment How to Access Health Informa tion Online using Patient Portal and 3rd [employer] Apps Indication:BMI 37.0-37.9, adult Start:24-Aug-2021 Instruction Type:Patient Education Patient Instructions Indication:Tachycardia Start:15-Apr-2021 Instruction Type:Provider Instructions for Treatment How to Access Health Informa tion Online using Patient Portal and 3rd [employer] Apps Indication:Tachycardia Start:15-Apr-2021 Instruction Type:Patient Education Patient Instructions Indication:Nonsmoker Start:11-Sep-2020 Instruction Type:Provider Instructions for Treatment How to Access Health Informa tion Online using Patient Portal and 3rd [employer] Apps Indication:Nonsmoker Start:11-Sep-2020 Instruction Type:Patient Education Patient Instructions Indication:BMI 38.0-38.9,adult Start:07-Sep-2020 Instruction Type:Provider Instructions for Treatment How to Access Health Informa tion Online using Patient Portal and 3rd [employer] Apps Indication:BMI 38.0-38.9,adult Start:07-Sep-2020 Instruction Type:Patient Education How to access health informa tion online Indication:Nonsmoker Start:30-Apr-2020 Instruction Type:Patient Education How to access health informa tion online - Detail Indication:Nonsmoker Start:30-Apr-2020 Instruction Type:Patient Education Patient Instructions Indication:Nonsmoker Start:30-Apr-2020 Instruction Type:Provider Instructions for Treatment How to access health informa tion online Indication:Nonsmoker Start:27-Dec-2019 Instruction Type:Patient Education How to access health informa tion online - Detail Indication:Nonsmoker Start:27-Dec-2019 Instruction Type:Patient Education Patient Instructions Indication:Nonsmoker Start:27-Dec-2019 Instruction Type:Provider Instructions for Treatment How to access health informa tion online Indication:Nonsmoker Start:24-Dec-2019 Instruction Type:Patient Education How to access health informa tion online - Detail Indication:Nonsmoker Start:24-Dec-2019 Instruction Type:Patient Education Patient Instructions Indication:Nonsmoker Start:24-Dec-2019 Instruction Type:Provider Instructions for Treatment How to access health informa tion online Indication:Nonsmoker Start:02-May-2019 Instruction Type:Patient Education How to access health informa tion online - Detail Indication:Nonsmoker Start:02-May-2019 Instruction Type:Patient Education Patient Instructions Indication:Nonsmoker Start:02-May-2019 Instruction Type:Provider Instructions for Treatment How to access health informa tion online Indication:BMI 34.0-34.9,adult Start:21-Feb-2019 Instruction Type:Patient Education How to access health informa tion online - Detail Indication:BMI 34.0-34.9,adult Start:21-Feb-2019 Instruction Type:Patient Education Patient Instructions Indication:Diarrhea Start:21-Feb-2019 Instruction Type:Provider Instructions for Treatment How to access health informa tion online Indication:Nonsmoker Start:24-Dec-2018 Instruction Type:Patient Education How to access health informa tion online - Detail Indication:Nonsmoker Start:24-Dec-2018 Instruction Type:Patient Education Patient Instructions Indication:Nonsmoker Start:24-Dec-2018 Instruction Type:Provider Instructions for Treatment How to access health informa tion online Indication:Nonsmoker Start:17-Jul-2018 Instruction Type:Patient Education How to access health informa tion online - Detail Indication:Nonsmoker Start:17-Jul-2018 Instruction Type:Patient Education Patient Instructions Indication:Nonsmoker Start:17-Jul-2018 Instruction Type:Provider Instructions for Treatment How to access health informa tion online Indication:BMI 33.0-33.9,adult Start:16-Jun-2017 Instruction Type:Patient Education How to access health informa tion online - Detail Indication:BMI 33.0-33.9,adult Start:16-Jun-2017 Instruction Type:Patient Education Patient Instructions Indication:BMI 33.0-33.9,adult Start:16-Jun-2017 Instruction Type:Provider Instructions for Treatment How to access health informa tion online - Detail Indication:Nonsmoker Start:19-Apr-2017 Instruction Type:Patient Education Patient Instructions Indication:Nonsmoker Start:19-Apr-2017 Instruction Type:Provider Instructions for Treatment How to access health informa tion online - Detail Indication:Nonsmoker Start:19-Apr-2017 Instruction Type:Patient Education Patient Instructions Indication:Nonsmoker Start:19-Apr-2017 Instruction Type:Provider Instructions for Treatment How to access health informa tion online - Detail Indication:Nonsmoker Start:13-Dec-2016 Instruction Type:Patient Education Patient Instructions Indication:Nonsmoker Start:13-Dec-2016 Instruction Type:Provider Instructions for Treatment obesity counseling Indication:Body mass index 35.0-35.9, adult Start:02-May-2016 Instruction Type:Provider Instructions for Treatment Patient Instructions Indication:Physical exam Start:02-May-2016 Instruction Type:Provider Instructions for Treatment How to access health informa tion online Indication:Pharyngitis, acute Start:03-Jul-2015 Instruction Type:Patient Education How to access health informa tion online - Detail Indication:Pharyngitis, acute Start:03-Jul-2015 Instruction Type:Patient Education Patient Instructions Indication:Pharyngitis, acute Start:03-Jul-2015 Instruction Type:Provider Instructions for Treatment How to access health informa tion online Indication:Annual physical exam Start:05-May-2015 Instruction Type:Patient Education How to access health informa tion online - Detail Indication:Annual physical exam Start:05-May-2015 Instruction Type:Patient Education Patient Instructions Indication:Annual physical exam Start:05-May-2015 Instruction Type:Provider Instructions for Treatment How to access health informa tion online Indication:Weight gain Start:26-May-2014 Instruction Type:Patient Education How to access health informa tion online - Detail Indication:Weight gain Start:26-May-2014 Instruction Type:Patient Education Patient Instructions Indication:Weight gain Start:26-May-2014 Instruction Type:Provider Instructions for Treatment Patient Instructions Indication:Annual physical exam Start:14-May-2014 Instruction Type:Provider Instructions for Treatment Patient Instructions Indication:Soft sore (chancroid) Start:04-Mar-2014 Instruction Type:Provider Instructions for Treatment Patient Instructions Indication:Family Planning Start:23-Jan-2014 Instruction Type:Provider Instructions for Treatment obesity counseling Indication:Weight gain Start:04-Jul-2013 Instruction Type:Provider Instructions for Treatment Patient Instructions Indication:Obesity Start:04-Jul-2013 Instruction Type:Provider Instructions for Treatment Patient Instructions Indication:Obesity Start:20-Jun-2013 Instruction Type:Provider Instructions for Treatment Patient Instructions Indication:Migraine with aura and without status migrainosus, not intractable Start:20-May-2013 Instruction Type:Provider Instructions for Treatment [facility]; [facility] Work Phone: Instructions* Name Dates Details Patient Instructions Indication:BMI 37.0-37.9, adult Start:24-Aug-2021 Instruction Type:Provider Instructions for Treatment How to Access Health Informa tion Online using Patient Portal and [employer]rd [employer] Apps Indication:BMI 37.0-37.9, adult Start:24-Aug-2021 Instruction Type:Patient Education Patient Instructions Indication:Tachycardia Start:15-Apr-2021 Instruction Type:Provider Instructions for Treatment How to Access Health Informa tion Online using Patient Portal and [employer]rd [employer] Apps Indication:Tachycardia Start:15-Apr-2021 Instruction Type:Patient Education Patient Instructions Indication:Nonsmoker Start:11-Sep-2020 Instruction Type:Provider Instructions for Treatment How to Access Health Informa tion Online using Patient Portal and [employer]rd [employer] Apps Indication:Nonsmoker Start:11-Sep-2020 Instruction Type:Patient Education Patient Instructions Indication:BMI 38.0-38.9,adult Start:07-Sep-2020 Instruction Type:Provider Instructions for Treatment How to Access Health Informa tion Online using Patient Portal and [employer]rd [employer] Apps Indication:BMI 38.0-38.9,adult Start:07-Sep-2020 Instruction Type:Patient Education How to access health informa tion online Indication:Nonsmoker Start:30-Apr-2020 Instruction Type:Patient Education How to access health informa tion online - Detail Indication:Nonsmoker Start:30-Apr-2020 Instruction Type:Patient Education Patient Instructions Indication:Nonsmoker Start:30-Apr-2020 Instruction Type:Provider Instructions for Treatment How to access health informa tion online Indication:Nonsmoker Start:27-Dec-2019 Instruction Type:Patient Education How to access health informa tion online - Detail Indication:Nonsmoker Start:27-Dec-2019 Instruction Type:Patient Education Patient Instructions Indication:Nonsmoker Start:27-Dec-2019 Instruction Type:Provider Instructions for Treatment How to access health informa tion online Indication:Nonsmoker Start:24-Dec-2019 Instruction Type:Patient Education How to access health informa tion online - Detail Indication:Nonsmoker Start:24-Dec-2019 Instruction Type:Patient Education Patient Instructions Indication:Nonsmoker Start:24-Dec-2019 Instruction Type:Provider Instructions for Treatment How to access health informa tion online Indication:Nonsmoker Start:02-May-2019 Instruction Type:Patient Education How to access health informa tion online - Detail Indication:Nonsmoker Start:02-May-2019 Instruction Type:Patient Education Patient Instructions Indication:Nonsmoker Start:02-May-2019 Instruction Type:Provider Instructions for Treatment How to access health informa tion online Indication:BMI 34.0-34.9,adult Start:21-Feb-2019 Instruction Type:Patient Education How to access health informa tion online - Detail Indication:BMI 34.0-34.9,adult Start:21-Feb-2019 Instruction Type:Patient Education Patient Instructions Indication:Diarrhea Start:21-Feb-2019 Instruction Type:Provider Instructions for Treatment How to access health informa tion online Indication:Nonsmoker Start:24-Dec-2018 Instruction Type:Patient Education How to access health informa tion online - Detail Indication:Nonsmoker Start:24-Dec-2018 Instruction Type:Patient Education Patient Instructions Indication:Nonsmoker Start:24-Dec-2018 Instruction Type:Provider Instructions for Treatment How to access health informa tion online Indication:Nonsmoker Start:17-Jul-2018 Instruction Type:Patient Education How to access health informa tion online - Detail Indication:Nonsmoker Start:17-Jul-2018 Instruction Type:Patient Education Patient Instructions Indication:Nonsmoker Start:17-Jul-2018 Instruction Type:Provider Instructions for Treatment How to access health informa tion online Indication:BMI 33.0-33.9,adult Start:16-Jun-2017 Instruction Type:Patient Education How to access health informa tion online - Detail Indication:BMI 33.0-33.9,adult Start:16-Jun-2017 Instruction Type:Patient Education Patient Instructions Indication:BMI 33.0-33.9,adult Start:16-Jun-2017 Instruction Type:Provider Instructions for Treatment How to access health informa tion online - Detail Indication:Nonsmoker Start:19-Apr-2017 Instruction Type:Patient Education Patient Instructions Indication:Nonsmoker Start:19-Apr-2017 Instruction Type:Provider Instructions for Treatment How to access health informa tion online - Detail Indication:Nonsmoker Start:19-Apr-2017 Instruction Type:Patient Education Patient Instructions Indication:Nonsmoker Start:19-Apr-2017 Instruction Type:Provider Instructions for Treatment How to access health informa tion online - Detail Indication:Nonsmoker Start:13-Dec-2016 Instruction Type:Patient Education Patient Instructions Indication:Nonsmoker Start:13-Dec-2016 Instruction Type:Provider Instructions for Treatment obesity counseling Indication:Body mass index 35.0-35.9, adult Start:02-May-2016 Instruction Type:Provider Instructions for Treatment Patient Instructions Indication:Physical exam Start:02-May-2016 Instruction Type:Provider Instructions for Treatment How to access health informa tion online Indication:Pharyngitis, acute Start:03-Jul-2015 Instruction Type:Patient Education How to access health informa tion online - Detail Indication:Pharyngitis, acute Start:03-Jul-2015 Instruction Type:Patient Education Patient Instructions Indication:Pharyngitis, acute Start:03-Jul-2015 Instruction Type:Provider Instructions for Treatment How to access health informa tion online Indication:Annual physical exam Start:05-May-2015 Instruction Type:Patient Education How to access health informa tion online - Detail Indication:Annual physical exam Start:05-May-2015 Instruction Type:Patient Education Patient Instructions Indication:Annual physical exam Start:05-May-2015 Instruction Type:Provider Instructions for Treatment How to access health informa tion online Indication:Weight gain Start:26-May-2014 Instruction Type:Patient Education How to access health informa tion online - Detail Indication:Weight gain Start:26-May-2014 Instruction Type:Patient Education Patient Instructions Indication:Weight gain Start:26-May-2014 Instruction Type:Provider Instructions for Treatment Patient Instructions Indication:Annual physical exam Start:14-May-2014 Instruction Type:Provider Instructions for Treatment Patient Instructions Indication:Soft sore (chancroid) Start:04-Mar-2014 Instruction Type:Provider Instructions for Treatment Patient Instructions Indication:Family Planning Start:23-Jan-2014 Instruction Type:Provider Instructions for Treatment obesity counseling Indication:Weight gain Start:04-Jul-2013 Instruction Type:Provider Instructions for Treatment Patient Instructions Indication:Obesity Start:04-Jul-2013 Instruction Type:Provider Instructions for Treatment Patient Instructions Indication:Obesity Start:20-Jun-2013 Instruction Type:Provider Instructions for Treatment Patient Instructions Indication:Migraine with aura and without status migrainosus, not intractable Start:20-May-2013 Instruction Type:Provider Instructions for Treatment [facility]; [facility] Work Phone: Instructions* Name Dates Details Patient Instructions Indication:BMI 37.0-37.9, adult Start:24-Aug-2021 Instruction Type:Provider Instructions for Treatment How to Access Health Informa tion Online using Patient Portal and [employer]rd [employer] Apps Indication:BMI 37.0-37.9, adult Start:24-Aug-2021 Instruction Type:Patient Education Patient Instructions Indication:Tachycardia Start:15-Apr-2021 Instruction Type:Provider Instructions for Treatment How to Access Health Informa tion Online using Patient Portal and [employer]rd [employer] Apps Indication:Tachycardia Start:15-Apr-2021 Instruction Type:Patient Education Patient Instructions Indication:Nonsmoker Start:11-Sep-2020 Instruction Type:Provider Instructions for Treatment How to Access Health Informa tion Online using Patient Portal and [employer]rd [employer] Apps Indication:Nonsmoker Start:11-Sep-2020 Instruction Type:Patient Education Patient Instructions Indication:BMI 38.0-38.9,adult Start:07-Sep-2020 Instruction Type:Provider Instructions for Treatment How to Access Health Informa tion Online using Patient Portal and [employer]rd [employer] Apps Indication:BMI 38.0-38.9,adult Start:07-Sep-2020 Instruction Type:Patient Education How to access health informa tion online Indication:Nonsmoker Start:30-Apr-2020 Instruction Type:Patient Education How to access health informa tion online - Detail Indication:Nonsmoker Start:30-Apr-2020 Instruction Type:Patient Education Patient Instructions Indication:Nonsmoker Start:30-Apr-2020 Instruction Type:Provider Instructions for Treatment How to access health informa tion online Indication:Nonsmoker Start:27-Dec-2019 Instruction Type:Patient Education How to access health informa tion online - Detail Indication:Nonsmoker Start:27-Dec-2019 Instruction Type:Patient Education Patient Instructions Indication:Nonsmoker Start:27-Dec-2019 Instruction Type:Provider Instructions for Treatment How to access health informa tion online Indication:Nonsmoker Start:24-Dec-2019 Instruction Type:Patient Education How to access health informa tion online - Detail Indication:Nonsmoker Start:24-Dec-2019 Instruction Type:Patient Education Patient Instructions Indication:Nonsmoker Start:24-Dec-2019 Instruction Type:Provider Instructions for Treatment How to access health informa tion online Indication:Nonsmoker Start:02-May-2019 Instruction Type:Patient Education How to access health informa tion online - Detail Indication:Nonsmoker Start:02-May-2019 Instruction Type:Patient Education Patient Instructions Indication:Nonsmoker Start:02-May-2019 Instruction Type:Provider Instructions for Treatment How to access health informa tion online Indication:BMI 34.0-34.9,adult Start:21-Feb-2019 Instruction Type:Patient Education How to access health informa tion online - Detail Indication:BMI 34.0-34.9,adult Start:21-Feb-2019 Instruction Type:Patient Education Patient Instructions Indication:Diarrhea Start:21-Feb-2019 Instruction Type:Provider Instructions for Treatment How to access health informa tion online Indication:Nonsmoker Start:24-Dec-2018 Instruction Type:Patient Education How to access health informa tion online - Detail Indication:Nonsmoker Start:24-Dec-2018 Instruction Type:Patient Education Patient Instructions Indication:Nonsmoker Start:24-Dec-2018 Instruction Type:Provider Instructions for Treatment How to access health informa tion online Indication:Nonsmoker Start:17-Jul-2018 Instruction Type:Patient Education How to access health informa tion online - Detail Indication:Nonsmoker Start:17-Jul-2018 Instruction Type:Patient Education Patient Instructions Indication:Nonsmoker Start:17-Jul-2018 Instruction Type:Provider Instructions for Treatment How to access health informa tion online Indication:BMI 33.0-33.9,adult Start:16-Jun-2017 Instruction Type:Patient Education How to access health informa tion online - Detail Indication:BMI 33.0-33.9,adult Start:16-Jun-2017 Instruction Type:Patient Education Patient Instructions Indication:BMI 33.0-33.9,adult Start:16-Jun-2017 Instruction Type:Provider Instructions for Treatment How to access health informa tion online - Detail Indication:Nonsmoker Start:19-Apr-2017 Instruction Type:Patient Education Patient Instructions Indication:Nonsmoker Start:19-Apr-2017 Instruction Type:Provider Instructions for Treatment How to access health informa tion online - Detail Indication:Nonsmoker Start:19-Apr-2017 Instruction Type:Patient Education Patient Instructions Indication:Nonsmoker Start:19-Apr-2017 Instruction Type:Provider Instructions for Treatment How to access health informa tion online - Detail Indication:Nonsmoker Start:13-Dec-2016 Instruction Type:Patient Education Patient Instructions Indication:Nonsmoker Start:13-Dec-2016 Instruction Type:Provider Instructions for Treatment obesity counseling Indication:Body mass index 35.0-35.9, adult Start:02-May-2016 Instruction Type:Provider Instructions for Treatment Patient Instructions Indication:Physical exam Start:02-May-2016 Instruction Type:Provider Instructions for Treatment How to access health informa tion online Indication:Pharyngitis, acute Start:03-Jul-2015 Instruction Type:Patient Education How to access health informa tion online - Detail Indication:Pharyngitis, acute Start:03-Jul-2015 Instruction Type:Patient Education Patient Instructions Indication:Pharyngitis, acute Start:03-Jul-2015 Instruction Type:Provider Instructions for Treatment How to access health informa tion online Indication:Annual physical exam Start:05-May-2015 Instruction Type:Patient Education How to access health informa tion online - Detail Indication:Annual physical exam Start:05-May-2015 Instruction Type:Patient Education Patient Instructions Indication:Annual physical exam Start:05-May-2015 Instruction Type:Provider Instructions for Treatment How to access health informa tion online Indication:Weight gain Start:26-May-2014 Instruction Type:Patient Education How to access health informa tion online - Detail Indication:Weight gain Start:26-May-2014 Instruction Type:Patient Education Patient Instructions Indication:Weight gain Start:26-May-2014 Instruction Type:Provider Instructions for Treatment Patient Instructions Indication:Annual physical exam Start:14-May-2014 Instruction Type:Provider Instructions for Treatment Patient Instructions Indication:Soft sore (chancroid) Start:04-Mar-2014 Instruction Type:Provider Instructions for Treatment Patient Instructions Indication:Family Planning Start:23-Jan-2014 Instruction Type:Provider Instructions for Treatment obesity counseling Indication:Weight gain Start:04-Jul-2013 Instruction Type:Provider Instructions for Treatment Patient Instructions Indication:Obesity Start:04-Jul-2013 Instruction Type:Provider Instructions for Treatment Patient Instructions Indication:Obesity Start:20-Jun-2013 Instruction Type:Provider Instructions for Treatment Patient Instructions Indication:Migraine with aura and without status migrainosus, not intractable Start:20-May-2013 Instruction Type:Provider Instructions for Treatment [facility]; [facility] Work Phone: Instructions* Name Dates Details Patient Instructions Indication:Non-smoker Start:09-May-2022 Instruction Type:Provider Instructions for Treatment How to Access Health Informa tion Online using Patient Portal and [employer]rd [employer] Apps Indication:Non-smoker Start:09-May-2022 Instruction Type:Patient Education Patient Instructions Indication:BMI 37.0-37.9, adult Start:24-Aug-2021 Instruction Type:Provider Instructions for Treatment How to Access Health Informa tion Online using Patient Portal and [employer]rd [employer] Apps Indication:BMI 37.0-37.9, adult Start:24-Aug-2021 Instruction Type:Patient Education Patient Instructions Indication:Tachycardia Start:15-Apr-2021 Instruction Type:Provider Instructions for Treatment How to Access Health Informa tion Online using Patient Portal and [employer]rd [employer] Apps Indication:Tachycardia Start:15-Apr-2021 Instruction Type:Patient Education Patient Instructions Indication:Nonsmoker Start:11-Sep-2020 Instruction Type:Provider Instructions for Treatment How to Access Health Informa tion Online using Patient Portal and [employer]rd [employer] Apps Indication:Nonsmoker Start:11-Sep-2020 Instruction Type:Patient Education Patient Instructions Indication:BMI 38.0-38.9,adult Start:07-Sep-2020 Instruction Type:Provider Instructions for Treatment How to Access Health Informa tion Online using Patient Portal and [employer]rd [employer] Apps Indication:BMI 38.0-38.9,adult Start:07-Sep-2020 Instruction Type:Patient Education How to access health informa tion online Indication:Nonsmoker Start:30-Apr-2020 Instruction Type:Patient Education How to access health informa tion online - Detail Indication:Nonsmoker Start:30-Apr-2020 Instruction Type:Patient Education Patient Instructions Indication:Nonsmoker Start:30-Apr-2020 Instruction Type:Provider Instructions for Treatment How to access health informa tion online Indication:Nonsmoker Start:27-Dec-2019 Instruction Type:Patient Education How to access health informa tion online - Detail Indication:Nonsmoker Start:27-Dec-2019 Instruction Type:Patient Education Patient Instructions Indication:Nonsmoker Start:27-Dec-2019 Instruction Type:Provider Instructions for Treatment How to access health informa tion online Indication:Nonsmoker Start:24-Dec-2019 Instruction Type:Patient Education How to access health informa tion online - Detail Indication:Nonsmoker Start:24-Dec-2019 Instruction Type:Patient Education Patient Instructions Indication:Nonsmoker Start:24-Dec-2019 Instruction Type:Provider Instructions for Treatment How to access health informa tion online Indication:Nonsmoker Start:02-May-2019 Instruction Type:Patient Education How to access health informa tion online - Detail Indication:Nonsmoker Start:02-May-2019 Instruction Type:Patient Education Patient Instructions Indication:Nonsmoker Start:02-May-2019 Instruction Type:Provider Instructions for Treatment How to access health informa tion online Indication:BMI 34.0-34.9,adult Start:21-Feb-2019 Instruction Type:Patient Education How to access health informa tion online - Detail Indication:BMI 34.0-34.9,adult Start:21-Feb-2019 Instruction Type:Patient Education Patient Instructions Indication:Diarrhea Start:21-Feb-2019 Instruction Type:Provider Instructions for Treatment How to access health informa tion online Indication:Nonsmoker Start:24-Dec-2018 Instruction Type:Patient Education How to access health informa tion online - Detail Indication:Nonsmoker Start:24-Dec-2018 Instruction Type:Patient Education Patient Instructions Indication:Nonsmoker Start:24-Dec-2018 Instruction Type:Provider Instructions for Treatment How to access health informa tion online Indication:Nonsmoker Start:17-Jul-2018 Instruction Type:Patient Education How to access health informa tion online - Detail Indication:Nonsmoker Start:17-Jul-2018 Instruction Type:Patient Education Patient Instructions Indication:Nonsmoker Start:17-Jul-2018 Instruction Type:Provider Instructions for Treatment How to access health informa tion online Indication:BMI 33.0-33.9,adult Start:16-Jun-2017 Instruction Type:Patient Education How to access health informa tion online - Detail Indication:BMI 33.0-33.9,adult Start:16-Jun-2017 Instruction Type:Patient Education Patient Instructions Indication:BMI 33.0-33.9,adult Start:16-Jun-2017 Instruction Type:Provider Instructions for Treatment How to access health informa tion online - Detail Indication:Nonsmoker Start:19-Apr-2017 Instruction Type:Patient Education Patient Instructions Indication:Nonsmoker Start:19-Apr-2017 Instruction Type:Provider Instructions for Treatment How to access health informa tion online - Detail Indication:Nonsmoker Start:19-Apr-2017 Instruction Type:Patient Education Patient Instructions Indication:Nonsmoker Start:19-Apr-2017 Instruction Type:Provider Instructions for Treatment How to access health informa tion online - Detail Indication:Nonsmoker Start:13-Dec-2016 Instruction Type:Patient Education Patient Instructions Indication:Nonsmoker Start:13-Dec-2016 Instruction Type:Provider Instructions for Treatment obesity counseling Indication:Body mass index 35.0-35.9, adult Start:02-May-2016 Instruction Type:Provider Instructions for Treatment Patient Instructions Indication:Physical exam Start:02-May-2016 Instruction Type:Provider Instructions for Treatment How to access health informa tion online Indication:Pharyngitis, acute Start:03-Jul-2015 Instruction Type:Patient Education How to access health informa tion online - Detail Indication:Pharyngitis, acute Start:03-Jul-2015 Instruction Type:Patient Education Patient Instructions Indication:Pharyngitis, acute Start:03-Jul-2015 Instruction Type:Provider Instructions for Treatment How to access health informa tion online Indication:Annual physical exam Start:05-May-2015 Instruction Type:Patient Education How to access health informa tion online - Detail Indication:Annual physical exam Start:05-May-2015 Instruction Type:Patient Education Patient Instructions Indication:Annual physical exam Start:05-May-2015 Instruction Type:Provider Instructions for Treatment How to access health informa tion online Indication:Weight gain Start:26-May-2014 Instruction Type:Patient Education How to access health informa tion online - Detail Indication:Weight gain Start:26-May-2014 Instruction Type:Patient Education Patient Instructions Indication:Weight gain Start:26-May-2014 Instruction Type:Provider Instructions for Treatment Patient Instructions Indication:Annual physical exam Start:14-May-2014 Instruction Type:Provider Instructions for Treatment Patient Instructions Indication:Soft sore (chancroid) Start:04-Mar-2014 Instruction Type:Provider Instructions for Treatment Patient Instructions Indication:Family Planning Start:23-Jan-2014 Instruction Type:Provider Instructions for Treatment obesity counseling Indication:Weight gain Start:04-Jul-2013 Instruction Type:Provider Instructions for Treatment Patient Instructions Indication:Obesity Start:04-Jul-2013 Instruction Type:Provider Instructions for Treatment Patient Instructions Indication:Obesity Start:20-Jun-2013 Instruction Type:Provider Instructions for Treatment Patient Instructions Indication:Migraine with aura and without status migrainosus, not intractable Start:20-May-2013 Instruction Type:Provider Instructions for Treatment [facility]; [facility] Work Phone: Instructions* Name Dates Details Patient Instructions Indication:Non-smoker Start:09-May-2022 Instruction Type:Provider Instructions for Treatment How to Access Health Informa tion Online using Patient Portal and [employer]rd [employer] Apps Indication:Non-smoker Start:09-May-2022 Instruction Type:Patient Education Patient Instructions Indication:BMI 37.0-37.9, adult Start:24-Aug-2021 Instruction Type:Provider Instructions for Treatment How to Access Health Informa tion Online using Patient Portal and [employer]rd [employer] Apps Indication:BMI 37.0-37.9, adult Start:24-Aug-2021 Instruction Type:Patient Education Patient Instructions Indication:Tachycardia Start:15-Apr-2021 Instruction Type:Provider Instructions for Treatment How to Access Health Informa tion Online using Patient Portal and [employer] Apps Indication:Tachycardia Start:15-Apr-2021 Instruction Type:Patient Education Patient Instructions Indication:Nonsmoker Start:11-Sep-2020 Instruction Type:Provider Instructions for Treatment How to Access Health Informa tion Online using Patient Portal and [employer] Apps Indication:Nonsmoker Start:11-Sep-2020 Instruction Type:Patient Education Patient Instructions Indication:BMI 38.0-38.9,adult Start:07-Sep-2020 Instruction Type:Provider Instructions for Treatment How to Access Health Informa tion Online using Patient Portal and [employer] Apps Indication:BMI 38.0-38.9,adult Start:07-Sep-2020 Instruction Type:Patient Education How to access health informa tion online Indication:Nonsmoker Start:30-Apr-2020 Instruction Type:Patient Education How to access health informa tion online - Detail Indication:Nonsmoker Start:30-Apr-2020 Instruction Type:Patient Education Patient Instructions Indication:Nonsmoker Start:30-Apr-2020 Instruction Type:Provider Instructions for Treatment How to access health informa tion online Indication:Nonsmoker Start:27-Dec-2019 Instruction Type:Patient Education How to access health informa tion online - Detail Indication:Nonsmoker Start:27-Dec-2019 Instruction Type:Patient Education Patient Instructions Indication:Nonsmoker Start:27-Dec-2019 Instruction Type:Provider Instructions for Treatment How to access health informa tion online Indication:Nonsmoker Start:24-Dec-2019 Instruction Type:Patient Education How to access health informa tion online - Detail Indication:Nonsmoker Start:24-Dec-2019 Instruction Type:Patient Education Patient Instructions Indication:Nonsmoker Start:24-Dec-2019 Instruction Type:Provider Instructions for Treatment How to access health informa tion online Indication:Nonsmoker Start:02-May-2019 Instruction Type:Patient Education How to access health informa tion online - Detail Indication:Nonsmoker Start:02-May-2019 Instruction Type:Patient Education Patient Instructions Indication:Nonsmoker Start:02-May-2019 Instruction Type:Provider Instructions for Treatment How to access health informa tion online Indication:BMI 34.0-34.9,adult Start:21-Feb-2019 Instruction Type:Patient Education How to access health informa tion online - Detail Indication:BMI 34.0-34.9,adult Start:21-Feb-2019 Instruction Type:Patient Education Patient Instructions Indication:Diarrhea Start:21-Feb-2019 Instruction Type:Provider Instructions for Treatment How to access health informa tion online Indication:Nonsmoker Start:24-Dec-2018 Instruction Type:Patient Education How to access health informa tion online - Detail Indication:Nonsmoker Start:24-Dec-2018 Instruction Type:Patient Education Patient Instructions Indication:Nonsmoker Start:24-Dec-2018 Instruction Type:Provider Instructions for Treatment How to access health informa tion online Indication:Nonsmoker Start:17-Jul-2018 Instruction Type:Patient Education How to access health informa tion online - Detail Indication:Nonsmoker Start:17-Jul-2018 Instruction Type:Patient Education Patient Instructions Indication:Nonsmoker Start:17-Jul-2018 Instruction Type:Provider Instructions for Treatment How to access health informa tion online Indication:BMI 33.0-33.9,adult Start:16-Jun-2017 Instruction Type:Patient Education How to access health informa tion online - Detail Indication:BMI 33.0-33.9,adult Start:16-Jun-2017 Instruction Type:Patient Education Patient Instructions Indication:BMI 33.0-33.9,adult Start:16-Jun-2017 Instruction Type:Provider Instructions for Treatment How to access health informa tion online - Detail Indication:Nonsmoker Start:19-Apr-2017 Instruction Type:Patient Education Patient Instructions Indication:Nonsmoker Start:19-Apr-2017 Instruction Type:Provider Instructions for Treatment How to access health informa tion online - Detail Indication:Nonsmoker Start:19-Apr-2017 Instruction Type:Patient Education Patient Instructions Indication:Nonsmoker Start:19-Apr-2017 Instruction Type:Provider Instructions for Treatment How to access health informa tion online - Detail Indication:Nonsmoker Start:13-Dec-2016 Instruction Type:Patient Education Patient Instructions Indication:Nonsmoker Start:13-Dec-2016 Instruction Type:Provider Instructions for Treatment obesity counseling Indication:Body mass index 35.0-35.9, adult Start:02-May-2016 Instruction Type:Provider Instructions for Treatment Patient Instructions Indication:Physical exam Start:02-May-2016 Instruction Type:Provider Instructions for Treatment How to access health informa tion online Indication:Pharyngitis, acute Start:03-Jul-2015 Instruction Type:Patient Education How to access health informa tion online - Detail Indication:Pharyngitis, acute Start:03-Jul-2015 Instruction Type:Patient Education Patient Instructions Indication:Pharyngitis, acute Start:03-Jul-2015 Instruction Type:Provider Instructions for Treatment How to access health informa tion online Indication:Annual physical exam Start:05-May-2015 Instruction Type:Patient Education How to access health informa tion online - Detail Indication:Annual physical exam Start:05-May-2015 Instruction Type:Patient Education Patient Instructions Indication:Annual physical exam Start:05-May-2015 Instruction Type:Provider Instructions for Treatment How to access health informa tion online Indication:Weight gain Start:26-May-2014 Instruction Type:Patient Education How to access health informa tion online - Detail Indication:Weight gain Start:26-May-2014 Instruction Type:Patient Education Patient Instructions Indication:Weight gain Start:26-May-2014 Instruction Type:Provider Instructions for Treatment Patient Instructions Indication:Annual physical exam Start:14-May-2014 Instruction Type:Provider Instructions for Treatment Patient Instructions Indication:Soft sore (chancroid) Start:04-Mar-2014 Instruction Type:Provider Instructions for Treatment Patient Instructions Indication:Family Planning Start:23-Jan-2014 Instruction Type:Provider Instructions for Treatment obesity counseling Indication:Weight gain Start:04-Jul-2013 Instruction Type:Provider Instructions for Treatment Patient Instructions Indication:Obesity Start:04-Jul-2013 Instruction Type:Provider Instructions for Treatment Patient Instructions Indication:Obesity Start:20-Jun-2013 Instruction Type:Provider Instructions for Treatment Patient Instructions Indication:Migraine with aura and without status migrainosus, not intractable Start:20-May-2013 Instruction Type:Provider Instructions for Treatment [facility]; [facility] Work Phone: Instructions* Name Dates Details Patient Instructions Indication:BMI 38.0-38.9,adult Start:11-Nov-2022 Instruction Type:Provider Instructions for Treatment How to Access Health Informa tion Online using Patient Portal and [employer] Apps Indication:BMI 38.0-38.9,adult Start:11-Nov-2022 Instruction Type:Patient Education Patient Instructions Indication:Non-smoker Start:09-May-2022 Instruction Type:Provider Instructions for Treatment How to Access Health Informa tion Online using Patient Portal and [employer] Apps Indication:Non-smoker Start:09-May-2022 Instruction Type:Patient Education Patient Instructions Indication:BMI 37.0-37.9, adult Start:24-Aug-2021 Instruction Type:Provider Instructions for Treatment How to Access Health Informa tion Online using Patient Portal and [employer] Apps Indication:BMI 37.0-37.9, adult Start:24-Aug-2021 Instruction Type:Patient Education Patient Instructions Indication:Tachycardia Start:15-Apr-2021 Instruction Type:Provider Instructions for Treatment How to Access Health Informa tion Online using Patient Portal and [employer] Apps Indication:Tachycardia Start:15-Apr-2021 Instruction Type:Patient Education Patient Instructions Indication:Nonsmoker Start:11-Sep-2020 Instruction Type:Provider Instructions for Treatment How to Access Health Informa tion Online using Patient Portal and [employer] Apps Indication:Nonsmoker Start:11-Sep-2020 Instruction Type:Patient Education Patient Instructions Indication:BMI 38.0-38.9,adult Start:07-Sep-2020 Instruction Type:Provider Instructions for Treatment How to Access Health Informa tion Online using Patient Portal and [employer] Apps Indication:BMI 38.0-38.9,adult Start:07-Sep-2020 Instruction Type:Patient Education How to access health informa tion online Indication:Nonsmoker Start:30-Apr-2020 Instruction Type:Patient Education How to access health informa tion online - Detail Indication:Nonsmoker Start:30-Apr-2020 Instruction Type:Patient Education Patient Instructions Indication:Nonsmoker Start:30-Apr-2020 Instruction Type:Provider Instructions for Treatment How to access health informa tion online Indication:Nonsmoker Start:27-Dec-2019 Instruction Type:Patient Education How to access health informa tion online - Detail Indication:Nonsmoker Start:27-Dec-2019 Instruction Type:Patient Education Patient Instructions Indication:Nonsmoker Start:27-Dec-2019 Instruction Type:Provider Instructions for Treatment How to access health informa tion online Indication:Nonsmoker Start:24-Dec-2019 Instruction Type:Patient Education How to access health informa tion online - Detail Indication:Nonsmoker Start:24-Dec-2019 Instruction Type:Patient Education Patient Instructions Indication:Nonsmoker Start:24-Dec-2019 Instruction Type:Provider Instructions for Treatment How to access health informa tion online Indication:Nonsmoker Start:02-May-2019 Instruction Type:Patient Education How to access health informa tion online - Detail Indication:Nonsmoker Start:02-May-2019 Instruction Type:Patient Education Patient Instructions Indication:Nonsmoker Start:02-May-2019 Instruction Type:Provider Instructions for Treatment How to access health informa tion online Indication:BMI 34.0-34.9,adult Start:21-Feb-2019 Instruction Type:Patient Education How to access health informa tion online - Detail Indication:BMI 34.0-34.9,adult Start:21-Feb-2019 Instruction Type:Patient Education Patient Instructions Indication:Diarrhea Start:21-Feb-2019 Instruction Type:Provider Instructions for Treatment How to access health informa tion online Indication:Nonsmoker Start:24-Dec-2018 Instruction Type:Patient Education How to access health informa tion online - Detail Indication:Nonsmoker Start:24-Dec-2018 Instruction Type:Patient Education Patient Instructions Indication:Nonsmoker Start:24-Dec-2018 Instruction Type:Provider Instructions for Treatment How to access health informa tion online Indication:Nonsmoker Start:17-Jul-2018 Instruction Type:Patient Education How to access health informa tion online - Detail Indication:Nonsmoker Start:17-Jul-2018 Instruction Type:Patient Education Patient Instructions Indication:Nonsmoker Start:17-Jul-2018 Instruction Type:Provider Instructions for Treatment How to access health informa tion online Indication:BMI 33.0-33.9,adult Start:16-Jun-2017 Instruction Type:Patient Education How to access health informa tion online - Detail Indication:BMI 33.0-33.9,adult Start:16-Jun-2017 Instruction Type:Patient Education Patient Instructions Indication:BMI 33.0-33.9,adult Start:16-Jun-2017 Instruction Type:Provider Instructions for Treatment How to access health informa tion online - Detail Indication:Nonsmoker Start:19-Apr-2017 Instruction Type:Patient Education Patient Instructions Indication:Nonsmoker Start:19-Apr-2017 Instruction Type:Provider Instructions for Treatment How to access health informa tion online - Detail Indication:Nonsmoker Start:19-Apr-2017 Instruction Type:Patient Education Patient Instructions Indication:Nonsmoker Start:19-Apr-2017 Instruction Type:Provider Instructions for Treatment How to access health informa tion online - Detail Indication:Nonsmoker Start:13-Dec-2016 Instruction Type:Patient Education Patient Instructions Indication:Nonsmoker Start:13-Dec-2016 Instruction Type:Provider Instructions for Treatment obesity counseling Indication:Body mass index 35.0-35.9, adult Start:02-May-2016 Instruction Type:Provider Instructions for Treatment Patient Instructions Indication:Physical exam Start:02-May-2016 Instruction Type:Provider Instructions for Treatment How to access health informa tion online Indication:Pharyngitis, acute Start:03-Jul-2015 Instruction Type:Patient Education How to access health informa tion online - Detail Indication:Pharyngitis, acute Start:03-Jul-2015 Instruction Type:Patient Education Patient Instructions Indication:Pharyngitis, acute Start:03-Jul-2015 Instruction Type:Provider Instructions for Treatment How to access health informa tion online Indication:Annual physical exam Start:05-May-2015 Instruction Type:Patient Education How to access health informa tion online - Detail Indication:Annual physical exam Start:05-May-2015 Instruction Type:Patient Education Patient Instructions Indication:Annual physical exam Start:05-May-2015 Instruction Type:Provider Instructions for Treatment How to access health informa tion online Indication:Weight gain Start:26-May-2014 Instruction Type:Patient Education How to access health informa tion online - Detail Indication:Weight gain Start:26-May-2014 Instruction Type:Patient Education Patient Instructions Indication:Weight gain Start:26-May-2014 Instruction Type:Provider Instructions for Treatment Patient Instructions Indication:Annual physical exam Start:14-May-2014 Instruction Type:Provider Instructions for Treatment Patient Instructions Indication:Soft sore (chancroid) Start:04-Mar-2014 Instruction Type:Provider Instructions for Treatment Patient Instructions Indication:Family Planning Start:23-Jan-2014 Instruction Type:Provider Instructions for Treatment obesity counseling Indication:Weight gain Start:04-Jul-2013 Instruction Type:Provider Instructions for Treatment Patient Instructions Indication:Obesity Start:04-Jul-2013 Instruction Type:Provider Instructions for Treatment Patient Instructions Indication:Obesity Start:20-Jun-2013 Instruction Type:Provider Instructions for Treatment Patient Instructions Indication:Migraine with aura and without status migrainosus, not intractable Start:20-May-2013 Instruction Type:Provider Instructions for Treatment [facility]; [facility] Work Phone: Instructions* Name Dates Details Patient Instructions Indication:Bronchitis Start:25-Nov-2022 Instruction Type:Provider Instructions for Treatment How to Access Health Informa tion Online using Patient Portal and [employer] Apps Indication:Bronchitis Start:25-Nov-2022 Instruction Type:Patient Education Patient Instructions Indication:BMI 38.0-38.9,adult Start:11-Nov-2022 Instruction Type:Provider Instructions for Treatment How to Access Health Informa tion Online using Patient Portal and [employer] Apps Indication:BMI 38.0-38.9,adult Start:11-Nov-2022 Instruction Type:Patient Education Patient Instructions Indication:Non-smoker Start:09-May-2022 Instruction Type:Provider Instructions for Treatment How to Access Health Informa tion Online using Patient Portal and [employer] Apps Indication:Non-smoker Start:09-May-2022 Instruction Type:Patient Education Patient Instructions Indication:BMI 37.0-37.9, adult Start:24-Aug-2021 Instruction Type:Provider Instructions for Treatment How to Access Health Informa tion Online using Patient Portal and [employer] Apps Indication:BMI 37.0-37.9, adult Start:24-Aug-2021 Instruction Type:Patient Education Patient Instructions Indication:Tachycardia Start:15-Apr-2021 Instruction Type:Provider Instructions for Treatment How to Access Health Informa tion Online using Patient Portal and [employer] Apps Indication:Tachycardia Start:15-Apr-2021 Instruction Type:Patient Education Patient Instructions Indication:Nonsmoker Start:11-Sep-2020 Instruction Type:Provider Instructions for Treatment How to Access Health Informa tion Online using Patient Portal and [employer] Apps Indication:Nonsmoker Start:11-Sep-2020 Instruction Type:Patient Education Patient Instructions Indication:BMI 38.0-38.9,adult Start:07-Sep-2020 Instruction Type:Provider Instructions for Treatment How to Access Health Informa tion Online using Patient Portal and [employer] Apps Indication:BMI 38.0-38.9,adult Start:07-Sep-2020 Instruction Type:Patient Education How to access health informa tion online Indication:Nonsmoker Start:30-Apr-2020 Instruction Type:Patient Education How to access health informa tion online - Detail Indication:Nonsmoker Start:30-Apr-2020 Instruction Type:Patient Education Patient Instructions Indication:Nonsmoker Start:30-Apr-2020 Instruction Type:Provider Instructions for Treatment How to access health informa tion online Indication:Nonsmoker Start:27-Dec-2019 Instruction Type:Patient Education How to access health informa tion online - Detail Indication:Nonsmoker Start:27-Dec-2019 Instruction Type:Patient Education Patient Instructions Indication:Nonsmoker Start:27-Dec-2019 Instruction Type:Provider Instructions for Treatment How to access health informa tion online Indication:Nonsmoker Start:24-Dec-2019 Instruction Type:Patient Education How to access health informa tion online - Detail Indication:Nonsmoker Start:24-Dec-2019 Instruction Type:Patient Education Patient Instructions Indication:Nonsmoker Start:24-Dec-2019 Instruction Type:Provider Instructions for Treatment How to access health informa tion online Indication:Nonsmoker Start:02-May-2019 Instruction Type:Patient Education How to access health informa tion online - Detail Indication:Nonsmoker Start:02-May-2019 Instruction Type:Patient Education Patient Instructions Indication:Nonsmoker Start:02-May-2019 Instruction Type:Provider Instructions for Treatment How to access health informa tion online Indication:BMI 34.0-34.9,adult Start:21-Feb-2019 Instruction Type:Patient Education How to access health informa tion online - Detail Indication:BMI 34.0-34.9,adult Start:21-Feb-2019 Instruction Type:Patient Education Patient Instructions Indication:Diarrhea Start:21-Feb-2019 Instruction Type:Provider Instructions for Treatment How to access health informa tion online Indication:Nonsmoker Start:24-Dec-2018 Instruction Type:Patient Education How to access health informa tion online - Detail Indication:Nonsmoker Start:24-Dec-2018 Instruction Type:Patient Education Patient Instructions Indication:Nonsmoker Start:24-Dec-2018 Instruction Type:Provider Instructions for Treatment How to access health informa tion online Indication:Nonsmoker Start:17-Jul-2018 Instruction Type:Patient Education How to access health informa tion online - Detail Indication:Nonsmoker Start:17-Jul-2018 Instruction Type:Patient Education Patient Instructions Indication:Nonsmoker Start:17-Jul-2018 Instruction Type:Provider Instructions for Treatment How to access health informa tion online Indication:BMI 33.0-33.9,adult Start:16-Jun-2017 Instruction Type:Patient Education How to access health informa tion online - Detail Indication:BMI 33.0-33.9,adult Start:16-Jun-2017 Instruction Type:Patient Education Patient Instructions Indication:BMI 33.0-33.9,adult Start:16-Jun-2017 Instruction Type:Provider Instructions for Treatment How to access health informa tion online - Detail Indication:Nonsmoker Start:19-Apr-2017 Instruction Type:Patient Education Patient Instructions Indication:Nonsmoker Start:19-Apr-2017 Instruction Type:Provider Instructions for Treatment How to access health informa tion online - Detail Indication:Nonsmoker Start:19-Apr-2017 Instruction Type:Patient Education Patient Instructions Indication:Nonsmoker Start:19-Apr-2017 Instruction Type:Provider Instructions for Treatment How to access health informa tion online - Detail Indication:Nonsmoker Start:13-Dec-2016 Instruction Type:Patient Education Patient Instructions Indication:Nonsmoker Start:13-Dec-2016 Instruction Type:Provider Instructions for Treatment obesity counseling Indication:Body mass index 35.0-35.9, adult Start:02-May-2016 Instruction Type:Provider Instructions for Treatment Patient Instructions Indication:Physical exam Start:02-May-2016 Instruction Type:Provider Instructions for Treatment How to access health informa tion online Indication:Pharyngitis, acute Start:03-Jul-2015 Instruction Type:Patient Education How to access health informa tion online - Detail Indication:Pharyngitis, acute Start:03-Jul-2015 Instruction Type:Patient Education Patient Instructions Indication:Pharyngitis, acute Start:03-Jul-2015 Instruction Type:Provider Instructions for Treatment How to access health informa tion online Indication:Annual physical exam Start:05-May-2015 Instruction Type:Patient Education How to access health informa tion online - Detail Indication:Annual physical exam Start:05-May-2015 Instruction Type:Patient Education Patient Instructions Indication:Annual physical exam Start:05-May-2015 Instruction Type:Provider Instructions for Treatment How to access health informa tion online Indication:Weight gain Start:26-May-2014 Instruction Type:Patient Education How to access health informa tion online - Detail Indication:Weight gain Start:26-May-2014 Instruction Type:Patient Education Patient Instructions Indication:Weight gain Start:26-May-2014 Instruction Type:Provider Instructions for Treatment Patient Instructions Indication:Annual physical exam Start:14-May-2014 Instruction Type:Provider Instructions for Treatment Patient Instructions Indication:Soft sore (chancroid) Start:04-Mar-2014 Instruction Type:Provider Instructions for Treatment Patient Instructions Indication:Family Planning Start:23-Jan-2014 Instruction Type:Provider Instructions for Treatment obesity counseling Indication:Weight gain Start:04-Jul-2013 Instruction Type:Provider Instructions for Treatment Patient Instructions Indication:Obesity Start:04-Jul-2013 Instruction Type:Provider Instructions for Treatment Patient Instructions Indication:Obesity Start:20-Jun-2013 Instruction Type:Provider Instructions for Treatment Patient Instructions Indication:Migraine with aura and without status migrainosus, not intractable Start:20-May-2013 Instruction Type:Provider Instructions for Treatment [facility]; [facility] Work Phone: Instructions* Name Dates Details Patient Instructions Indication:Bronchitis Start:25-Nov-2022 Instruction Type:Provider Instructions for Treatment How to Access Health Informa tion Online using Patient Portal and [employer] Apps Indication:Bronchitis Start:25-Nov-2022 Instruction Type:Patient Education Patient Instructions Indication:BMI 38.0-38.9,adult Start:11-Nov-2022 Instruction Type:Provider Instructions for Treatment How to Access Health Informa tion Online using Patient Portal and [employer] Apps Indication:BMI 38.0-38.9,adult Start:11-Nov-2022 Instruction Type:Patient Education Patient Instructions Indication:Non-smoker Start:09-May-2022 Instruction Type:Provider Instructions for Treatment How to Access Health Informa tion Online using Patient Portal and [employer] Apps Indication:Non-smoker Start:09-May-2022 Instruction Type:Patient Education Patient Instructions Indication:BMI 37.0-37.9, adult Start:24-Aug-2021 Instruction Type:Provider Instructions for Treatment How to Access Health Informa tion Online using Patient Portal and [employer] Apps Indication:BMI 37.0-37.9, adult Start:24-Aug-2021 Instruction Type:Patient Education Patient Instructions Indication:Tachycardia Start:15-Apr-2021 Instruction Type:Provider Instructions for Treatment How to Access Health Informa tion Online using Patient Portal and [employer] Apps Indication:Tachycardia Start:15-Apr-2021 Instruction Type:Patient Education Patient Instructions Indication:Nonsmoker Start:11-Sep-2020 Instruction Type:Provider Instructions for Treatment How to Access Health Informa tion Online using Patient Portal and [employer] Apps Indication:Nonsmoker Start:11-Sep-2020 Instruction Type:Patient Education Patient Instructions Indication:BMI 38.0-38.9,adult Start:07-Sep-2020 Instruction Type:Provider Instructions for Treatment How to Access Health Informa tion Online using Patient Portal and [employer] Apps Indication:BMI 38.0-38.9,adult Start:07-Sep-2020 Instruction Type:Patient Education How to access health informa tion online Indication:Nonsmoker Start:30-Apr-2020 Instruction Type:Patient Education How to access health informa tion online - Detail Indication:Nonsmoker Start:30-Apr-2020 Instruction Type:Patient Education Patient Instructions Indication:Nonsmoker Start:30-Apr-2020 Instruction Type:Provider Instructions for Treatment How to access health informa tion online Indication:Nonsmoker Start:27-Dec-2019 Instruction Type:Patient Education How to access health informa tion online - Detail Indication:Nonsmoker Start:27-Dec-2019 Instruction Type:Patient Education Patient Instructions Indication:Nonsmoker Start:27-Dec-2019 Instruction Type:Provider Instructions for Treatment How to access health informa tion online Indication:Nonsmoker Start:24-Dec-2019 Instruction Type:Patient Education How to access health informa tion online - Detail Indication:Nonsmoker Start:24-Dec-2019 Instruction Type:Patient Education Patient Instructions Indication:Nonsmoker Start:24-Dec-2019 Instruction Type:Provider Instructions for Treatment How to access health informa tion online Indication:Nonsmoker Start:02-May-2019 Instruction Type:Patient Education How to access health informa tion online - Detail Indication:Nonsmoker Start:02-May-2019 Instruction Type:Patient Education Patient Instructions Indication:Nonsmoker Start:02-May-2019 Instruction Type:Provider Instructions for Treatment How to access health informa tion online Indication:BMI 34.0-34.9,adult Start:21-Feb-2019 Instruction Type:Patient Education How to access health informa tion online - Detail Indication:BMI 34.0-34.9,adult Start:21-Feb-2019 Instruction Type:Patient Education Patient Instructions Indication:Diarrhea Start:21-Feb-2019 Instruction Type:Provider Instructions for Treatment How to access health informa tion online Indication:Nonsmoker Start:24-Dec-2018 Instruction Type:Patient Education How to access health informa tion online - Detail Indication:Nonsmoker Start:24-Dec-2018 Instruction Type:Patient Education Patient Instructions Indication:Nonsmoker Start:24-Dec-2018 Instruction Type:Provider Instructions for Treatment How to access health informa tion online Indication:Nonsmoker Start:17-Jul-2018 Instruction Type:Patient Education How to access health informa tion online - Detail Indication:Nonsmoker Start:17-Jul-2018 Instruction Type:Patient Education Patient Instructions Indication:Nonsmoker Start:17-Jul-2018 Instruction Type:Provider Instructions for Treatment How to access health informa tion online Indication:BMI 33.0-33.9,adult Start:16-Jun-2017 Instruction Type:Patient Education How to access health informa tion online - Detail Indication:BMI 33.0-33.9,adult Start:16-Jun-2017 Instruction Type:Patient Education Patient Instructions Indication:BMI 33.0-33.9,adult Start:16-Jun-2017 Instruction Type:Provider Instructions for Treatment How to access health informa tion online - Detail Indication:Nonsmoker Start:19-Apr-2017 Instruction Type:Patient Education Patient Instructions Indication:Nonsmoker Start:19-Apr-2017 Instruction Type:Provider Instructions for Treatment How to access health informa tion online - Detail Indication:Nonsmoker Start:19-Apr-2017 Instruction Type:Patient Education Patient Instructions Indication:Nonsmoker Start:19-Apr-2017 Instruction Type:Provider Instructions for Treatment How to access health informa tion online - Detail Indication:Nonsmoker Start:13-Dec-2016 Instruction Type:Patient Education Patient Instructions Indication:Nonsmoker Start:13-Dec-2016 Instruction Type:Provider Instructions for Treatment obesity counseling Indication:Body mass index 35.0-35.9, adult Start:02-May-2016 Instruction Type:Provider Instructions for Treatment Patient Instructions Indication:Physical exam Start:02-May-2016 Instruction Type:Provider Instructions for Treatment How to access health informa tion online Indication:Pharyngitis, acute Start:03-Jul-2015 Instruction Type:Patient Education How to access health informa tion online - Detail Indication:Pharyngitis, acute Start:03-Jul-2015 Instruction Type:Patient Education Patient Instructions Indication:Pharyngitis, acute Start:03-Jul-2015 Instruction Type:Provider Instructions for Treatment How to access health informa tion online Indication:Annual physical exam Start:05-May-2015 Instruction Type:Patient Education How to access health informa tion online - Detail Indication:Annual physical exam Start:05-May-2015 Instruction Type:Patient Education Patient Instructions Indication:Annual physical exam Start:05-May-2015 Instruction Type:Provider Instructions for Treatment How to access health informa tion online Indication:Weight gain Start:26-May-2014 Instruction Type:Patient Education How to access health informa tion online - Detail Indication:Weight gain Start:26-May-2014 Instruction Type:Patient Education Patient Instructions Indication:Weight gain Start:26-May-2014 Instruction Type:Provider Instructions for Treatment Patient Instructions Indication:Annual physical exam Start:14-May-2014 Instruction Type:Provider Instructions for Treatment Patient Instructions Indication:Soft sore (chancroid) Start:04-Mar-2014 Instruction Type:Provider Instructions for Treatment Patient Instructions Indication:Family Planning Start:23-Jan-2014 Instruction Type:Provider Instructions for Treatment obesity counseling Indication:Weight gain Start:04-Jul-2013 Instruction Type:Provider Instructions for Treatment Patient Instructions Indication:Obesity Start:04-Jul-2013 Instruction Type:Provider Instructions for Treatment Patient Instructions Indication:Obesity Start:20-Jun-2013 Instruction Type:Provider Instructions for Treatment Patient Instructions Indication:Migraine with aura and without status migrainosus, not intractable Start:20-May-2013 Instruction Type:Provider Instructions for Treatment [facility]; [facility] Work Phone: Instructions* Name Dates Details Patient Instructions Indication:Obesity Start:15-Dec-2022 Instruction Type:Provider Instructions for Treatment How to Access Health Informa tion Online using Patient Portal and [employer] Apps Indication:Obesity Start:15-Dec-2022 Instruction Type:Patient Education Patient Instructions Indication:Bronchitis Start:25-Nov-2022 Instruction Type:Provider Instructions for Treatment How to Access Health Informa tion Online using Patient Portal and [employer] Apps Indication:Bronchitis Start:25-Nov-2022 Instruction Type:Patient Education Patient Instructions Indication:BMI 38.0-38.9,adult Start:11-Nov-2022 Instruction Type:Provider Instructions for Treatment How to Access Health Informa tion Online using Patient Portal and [employer] Apps Indication:BMI 38.0-38.9,adult Start:11-Nov-2022 Instruction Type:Patient Education Patient Instructions Indication:Non-smoker Start:09-May-2022 Instruction Type:Provider Instructions for Treatment How to Access Health Informa tion Online using Patient Portal and [employer] Apps Indication:Non-smoker Start:09-May-2022 Instruction Type:Patient Education Patient Instructions Indication:BMI 37.0-37.9, adult Start:24-Aug-2021 Instruction Type:Provider Instructions for Treatment How to Access Health Informa tion Online using Patient Portal and [employer] Apps Indication:BMI 37.0-37.9, adult Start:24-Aug-2021 Instruction Type:Patient Education Patient Instructions Indication:Tachycardia Start:15-Apr-2021 Instruction Type:Provider Instructions for Treatment How to Access Health Informa tion Online using Patient Portal and [employer] Apps Indication:Tachycardia Start:15-Apr-2021 Instruction Type:Patient Education Patient Instructions Indication:Nonsmoker Start:11-Sep-2020 Instruction Type:Provider Instructions for Treatment How to Access Health Informa tion Online using Patient Portal and [employer] Apps Indication:Nonsmoker Start:11-Sep-2020 Instruction Type:Patient Education Patient Instructions Indication:BMI 38.0-38.9,adult Start:07-Sep-2020 Instruction Type:Provider Instructions for Treatment How to Access Health Informa tion Online using Patient Portal and [employer] Apps Indication:BMI 38.0-38.9,adult Start:07-Sep-2020 Instruction Type:Patient Education How to access health informa tion online Indication:Nonsmoker Start:30-Apr-2020 Instruction Type:Patient Education How to access health informa tion online - Detail Indication:Nonsmoker Start:30-Apr-2020 Instruction Type:Patient Education Patient Instructions Indication:Nonsmoker Start:30-Apr-2020 Instruction Type:Provider Instructions for Treatment How to access health informa tion online Indication:Nonsmoker Start:27-Dec-2019 Instruction Type:Patient Education How to access health informa tion online - Detail Indication:Nonsmoker Start:27-Dec-2019 Instruction Type:Patient Education Patient Instructions Indication:Nonsmoker Start:27-Dec-2019 Instruction Type:Provider Instructions for Treatment How to access health informa tion online Indication:Nonsmoker Start:24-Dec-2019 Instruction Type:Patient Education How to access health informa tion online - Detail Indication:Nonsmoker Start:24-Dec-2019 Instruction Type:Patient Education Patient Instructions Indication:Nonsmoker Start:24-Dec-2019 Instruction Type:Provider Instructions for Treatment How to access health informa tion online Indication:Nonsmoker Start:02-May-2019 Instruction Type:Patient Education How to access health informa tion online - Detail Indication:Nonsmoker Start:02-May-2019 Instruction Type:Patient Education Patient Instructions Indication:Nonsmoker Start:02-May-2019 Instruction Type:Provider Instructions for Treatment How to access health informa tion online Indication:BMI 34.0-34.9,adult Start:21-Feb-2019 Instruction Type:Patient Education How to access health informa tion online - Detail Indication:BMI 34.0-34.9,adult Start:21-Feb-2019 Instruction Type:Patient Education Patient Instructions Indication:Diarrhea Start:21-Feb-2019 Instruction Type:Provider Instructions for Treatment How to access health informa tion online Indication:Nonsmoker Start:24-Dec-2018 Instruction Type:Patient Education How to access health informa tion online - Detail Indication:Nonsmoker Start:24-Dec-2018 Instruction Type:Patient Education Patient Instructions Indication:Nonsmoker Start:24-Dec-2018 Instruction Type:Provider Instructions for Treatment How to access health informa tion online Indication:Nonsmoker Start:17-Jul-2018 Instruction Type:Patient Education How to access health informa tion online - Detail Indication:Nonsmoker Start:17-Jul-2018 Instruction Type:Patient Education Patient Instructions Indication:Nonsmoker Start:17-Jul-2018 Instruction Type:Provider Instructions for Treatment How to access health informa tion online Indication:BMI 33.0-33.9,adult Start:16-Jun-2017 Instruction Type:Patient Education How to access health informa tion online - Detail Indication:BMI 33.0-33.9,adult Start:16-Jun-2017 Instruction Type:Patient Education Patient Instructions Indication:BMI 33.0-33.9,adult Start:16-Jun-2017 Instruction Type:Provider Instructions for Treatment How to access health informa tion online - Detail Indication:Nonsmoker Start:19-Apr-2017 Instruction Type:Patient Education Patient Instructions Indication:Nonsmoker Start:19-Apr-2017 Instruction Type:Provider Instructions for Treatment How to access health informa tion online - Detail Indication:Nonsmoker Start:19-Apr-2017 Instruction Type:Patient Education Patient Instructions Indication:Nonsmoker Start:19-Apr-2017 Instruction Type:Provider Instructions for Treatment How to access health informa tion online - Detail Indication:Nonsmoker Start:13-Dec-2016 Instruction Type:Patient Education Patient Instructions Indication:Nonsmoker Start:13-Dec-2016 Instruction Type:Provider Instructions for Treatment obesity counseling Indication:Body mass index 35.0-35.9, adult Start:02-May-2016 Instruction Type:Provider Instructions for Treatment Patient Instructions Indication:Physical exam Start:02-May-2016 Instruction Type:Provider Instructions for Treatment How to access health informa tion online Indication:Pharyngitis, acute Start:03-Jul-2015 Instruction Type:Patient Education How to access health informa tion online - Detail Indication:Pharyngitis, acute Start:03-Jul-2015 Instruction Type:Patient Education Patient Instructions Indication:Pharyngitis, acute Start:03-Jul-2015 Instruction Type:Provider Instructions for Treatment How to access health informa tion online Indication:Annual physical exam Start:05-May-2015 Instruction Type:Patient Education How to access health informa tion online - Detail Indication:Annual physical exam Start:05-May-2015 Instruction Type:Patient Education Patient Instructions Indication:Annual physical exam Start:05-May-2015 Instruction Type:Provider Instructions for Treatment How to access health informa tion online Indication:Weight gain Start:26-May-2014 Instruction Type:Patient Education How to access health informa tion online - Detail Indication:Weight gain Start:26-May-2014 Instruction Type:Patient Education Patient Instructions Indication:Weight gain Start:26-May-2014 Instruction Type:Provider Instructions for Treatment Patient Instructions Indication:Annual physical exam Start:14-May-2014 Instruction Type:Provider Instructions for Treatment Patient Instructions Indication:Soft sore (chancroid) Start:04-Mar-2014 Instruction Type:Provider Instructions for Treatment Patient Instructions Indication:Family Planning Start:23-Jan-2014 Instruction Type:Provider Instructions for Treatment obesity counseling Indication:Weight gain Start:04-Jul-2013 Instruction Type:Provider Instructions for Treatment Patient Instructions Indication:Obesity Start:04-Jul-2013 Instruction Type:Provider Instructions for Treatment Patient Instructions Indication:Obesity Start:20-Jun-2013 Instruction Type:Provider Instructions for Treatment Patient Instructions Indication:Migraine with aura and without status migrainosus, not intractable Start:20-May-2013 Instruction Type:Provider Instructions for Treatment [facility]; [facility] Work Phone: Instructions* Name Dates Details Patient Instructions Indication:Obesity Start:15-Dec-2022 Instruction Type:Provider Instructions for Treatment How to Access Health Informa tion Online using Patient Portal and [employer] Apps Indication:Obesity Start:15-Dec-2022 Instruction Type:Patient Education Patient Instructions Indication:Bronchitis Start:25-Nov-2022 Instruction Type:Provider Instructions for Treatment How to Access Health Informa tion Online using Patient Portal and [employer] Apps Indication:Bronchitis Start:25-Nov-2022 Instruction Type:Patient Education Patient Instructions Indication:BMI 38.0-38.9,adult Start:11-Nov-2022 Instruction Type:Provider Instructions for Treatment How to Access Health Informa tion Online using Patient Portal and [employer] Apps Indication:BMI 38.0-38.9,adult Start:11-Nov-2022 Instruction Type:Patient Education Patient Instructions Indication:Non-smoker Start:09-May-2022 Instruction Type:Provider Instructions for Treatment How to Access Health Informa tion Online using Patient Portal and [employer] Apps Indication:Non-smoker Start:09-May-2022 Instruction Type:Patient Education Patient Instructions Indication:BMI 37.0-37.9, adult Start:24-Aug-2021 Instruction Type:Provider Instructions for Treatment How to Access Health Informa tion Online using Patient Portal and [employer]rd [employer] Apps Indication:BMI 37.0-37.9, adult Start:24-Aug-2021 Instruction Type:Patient Education Patient Instructions Indication:Tachycardia Start:15-Apr-2021 Instruction Type:Provider Instructions for Treatment How to Access Health Informa tion Online using Patient Portal and [employer] Apps Indication:Tachycardia Start:15-Apr-2021 Instruction Type:Patient Education Patient Instructions Indication:Nonsmoker Start:11-Sep-2020 Instruction Type:Provider Instructions for Treatment How to Access Health Informa tion Online using Patient Portal and [employer] Apps Indication:Nonsmoker Start:11-Sep-2020 Instruction Type:Patient Education Patient Instructions Indication:BMI 38.0-38.9,adult Start:07-Sep-2020 Instruction Type:Provider Instructions for Treatment How to Access Health Informa tion Online using Patient Portal and [employer] Apps Indication:BMI 38.0-38.9,adult Start:07-Sep-2020 Instruction Type:Patient Education How to access health informa tion online Indication:Nonsmoker Start:30-Apr-2020 Instruction Type:Patient Education How to access health informa tion online - Detail Indication:Nonsmoker Start:30-Apr-2020 Instruction Type:Patient Education Patient Instructions Indication:Nonsmoker Start:30-Apr-2020 Instruction Type:Provider Instructions for Treatment How to access health informa tion online Indication:Nonsmoker Start:27-Dec-2019 Instruction Type:Patient Education How to access health informa tion online - Detail Indication:Nonsmoker Start:27-Dec-2019 Instruction Type:Patient Education Patient Instructions Indication:Nonsmoker Start:27-Dec-2019 Instruction Type:Provider Instructions for Treatment How to access health informa tion online Indication:Nonsmoker Start:24-Dec-2019 Instruction Type:Patient Education How to access health informa tion online - Detail Indication:Nonsmoker Start:24-Dec-2019 Instruction Type:Patient Education Patient Instructions Indication:Nonsmoker Start:24-Dec-2019 Instruction Type:Provider Instructions for Treatment How to access health informa tion online Indication:Nonsmoker Start:02-May-2019 Instruction Type:Patient Education How to access health informa tion online - Detail Indication:Nonsmoker Start:02-May-2019 Instruction Type:Patient Education Patient Instructions Indication:Nonsmoker Start:02-May-2019 Instruction Type:Provider Instructions for Treatment How to access health informa tion online Indication:BMI 34.0-34.9,adult Start:21-Feb-2019 Instruction Type:Patient Education How to access health informa tion online - Detail Indication:BMI 34.0-34.9,adult Start:21-Feb-2019 Instruction Type:Patient Education Patient Instructions Indication:Diarrhea Start:21-Feb-2019 Instruction Type:Provider Instructions for Treatment How to access health informa tion online Indication:Nonsmoker Start:24-Dec-2018 Instruction Type:Patient Education How to access health informa tion online - Detail Indication:Nonsmoker Start:24-Dec-2018 Instruction Type:Patient Education Patient Instructions Indication:Nonsmoker Start:24-Dec-2018 Instruction Type:Provider Instructions for Treatment How to access health informa tion online Indication:Nonsmoker Start:17-Jul-2018 Instruction Type:Patient Education How to access health informa tion online - Detail Indication:Nonsmoker Start:17-Jul-2018 Instruction Type:Patient Education Patient Instructions Indication:Nonsmoker Start:17-Jul-2018 Instruction Type:Provider Instructions for Treatment How to access health informa tion online Indication:BMI 33.0-33.9,adult Start:16-Jun-2017 Instruction Type:Patient Education How to access health informa tion online - Detail Indication:BMI 33.0-33.9,adult Start:16-Jun-2017 Instruction Type:Patient Education Patient Instructions Indication:BMI 33.0-33.9,adult Start:16-Jun-2017 Instruction Type:Provider Instructions for Treatment How to access health informa tion online - Detail Indication:Nonsmoker Start:19-Apr-2017 Instruction Type:Patient Education Patient Instructions Indication:Nonsmoker Start:19-Apr-2017 Instruction Type:Provider Instructions for Treatment How to access health informa tion online - Detail Indication:Nonsmoker Start:19-Apr-2017 Instruction Type:Patient Education Patient Instructions Indication:Nonsmoker Start:19-Apr-2017 Instruction Type:Provider Instructions for Treatment How to access health informa tion online - Detail Indication:Nonsmoker Start:13-Dec-2016 Instruction Type:Patient Education Patient Instructions Indication:Nonsmoker Start:13-Dec-2016 Instruction Type:Provider Instructions for Treatment obesity counseling Indication:Body mass index 35.0-35.9, adult Start:02-May-2016 Instruction Type:Provider Instructions for Treatment Patient Instructions Indication:Physical exam Start:02-May-2016 Instruction Type:Provider Instructions for Treatment How to access health informa tion online Indication:Pharyngitis, acute Start:03-Jul-2015 Instruction Type:Patient Education How to access health informa tion online - Detail Indication:Pharyngitis, acute Start:03-Jul-2015 Instruction Type:Patient Education Patient Instructions Indication:Pharyngitis, acute Start:03-Jul-2015 Instruction Type:Provider Instructions for Treatment How to access health informa tion online Indication:Annual physical exam Start:05-May-2015 Instruction Type:Patient Education How to access health informa tion online - Detail Indication:Annual physical exam Start:05-May-2015 Instruction Type:Patient Education Patient Instructions Indication:Annual physical exam Start:05-May-2015 Instruction Type:Provider Instructions for Treatment How to access health informa tion online Indication:Weight gain Start:26-May-2014 Instruction Type:Patient Education How to access health informa tion online - Detail Indication:Weight gain Start:26-May-2014 Instruction Type:Patient Education Patient Instructions Indication:Weight gain Start:26-May-2014 Instruction Type:Provider Instructions for Treatment Patient Instructions Indication:Annual physical exam Start:14-May-2014 Instruction Type:Provider Instructions for Treatment Patient Instructions Indication:Soft sore (chancroid) Start:04-Mar-2014 Instruction Type:Provider Instructions for Treatment Patient Instructions Indication:Family Planning Start:23-Jan-2014 Instruction Type:Provider Instructions for Treatment obesity counseling Indication:Weight gain Start:04-Jul-2013 Instruction Type:Provider Instructions for Treatment Patient Instructions Indication:Obesity Start:04-Jul-2013 Instruction Type:Provider Instructions for Treatment Patient Instructions Indication:Obesity Start:20-Jun-2013 Instruction Type:Provider Instructions for Treatment Patient Instructions Indication:Migraine with aura and without status migrainosus, not intractable Start:20-May-2013 Instruction Type:Provider Instructions for Treatment [facility]; [facility] Work Phone: Instructions* Name Dates Details Patient Instructions Indication:Obesity Start:15-Dec-2022 Instruction Type:Provider Instructions for Treatment How to Access Health Informa tion Online using Patient Portal and [employer] Apps Indication:Obesity Start:15-Dec-2022 Instruction Type:Patient Education Patient Instructions Indication:Bronchitis Start:25-Nov-2022 Instruction Type:Provider Instructions for Treatment How to Access Health Informa tion Online using Patient Portal and [employer]rd [employer] Apps Indication:Bronchitis Start:25-Nov-2022 Instruction Type:Patient Education Patient Instructions Indication:BMI 38.0-38.9,adult Start:11-Nov-2022 Instruction Type:Provider Instructions for Treatment How to Access Health Informa tion Online using Patient Portal and [employer]rd [employer] Apps Indication:BMI 38.0-38.9,adult Start:11-Nov-2022 Instruction Type:Patient Education Patient Instructions Indication:Non-smoker Start:09-May-2022 Instruction Type:Provider Instructions for Treatment How to Access Health Informa tion Online using Patient Portal and [employer] Apps Indication:Non-smoker Start:09-May-2022 Instruction Type:Patient Education Patient Instructions Indication:BMI 37.0-37.9, adult Start:24-Aug-2021 Instruction Type:Provider Instructions for Treatment How to Access Health Informa tion Online using Patient Portal and [employer] Apps Indication:BMI 37.0-37.9, adult Start:24-Aug-2021 Instruction Type:Patient Education Patient Instructions Indication:Tachycardia Start:15-Apr-2021 Instruction Type:Provider Instructions for Treatment How to Access Health Informa tion Online using Patient Portal and [employer] Apps Indication:Tachycardia Start:15-Apr-2021 Instruction Type:Patient Education Patient Instructions Indication:Nonsmoker Start:11-Sep-2020 Instruction Type:Provider Instructions for Treatment How to Access Health Informa tion Online using Patient Portal and [employer] Apps Indication:Nonsmoker Start:11-Sep-2020 Instruction Type:Patient Education Patient Instructions Indication:BMI 38.0-38.9,adult Start:07-Sep-2020 Instruction Type:Provider Instructions for Treatment How to Access Health Informa tion Online using Patient Portal and [employer] Apps Indication:BMI 38.0-38.9,adult Start:07-Sep-2020 Instruction Type:Patient Education How to access health informa tion online Indication:Nonsmoker Start:30-Apr-2020 Instruction Type:Patient Education How to access health informa tion online - Detail Indication:Nonsmoker Start:30-Apr-2020 Instruction Type:Patient Education Patient Instructions Indication:Nonsmoker Start:30-Apr-2020 Instruction Type:Provider Instructions for Treatment How to access health informa tion online Indication:Nonsmoker Start:27-Dec-2019 Instruction Type:Patient Education How to access health informa tion online - Detail Indication:Nonsmoker Start:27-Dec-2019 Instruction Type:Patient Education Patient Instructions Indication:Nonsmoker Start:27-Dec-2019 Instruction Type:Provider Instructions for Treatment How to access health informa tion online Indication:Nonsmoker Start:24-Dec-2019 Instruction Type:Patient Education How to access health informa tion online - Detail Indication:Nonsmoker Start:24-Dec-2019 Instruction Type:Patient Education Patient Instructions Indication:Nonsmoker Start:24-Dec-2019 Instruction Type:Provider Instructions for Treatment How to access health informa tion online Indication:Nonsmoker Start:02-May-2019 Instruction Type:Patient Education How to access health informa tion online - Detail Indication:Nonsmoker Start:02-May-2019 Instruction Type:Patient Education Patient Instructions Indication:Nonsmoker Start:02-May-2019 Instruction Type:Provider Instructions for Treatment How to access health informa tion online Indication:BMI 34.0-34.9,adult Start:21-Feb-2019 Instruction Type:Patient Education How to access health informa tion online - Detail Indication:BMI 34.0-34.9,adult Start:21-Feb-2019 Instruction Type:Patient Education Patient Instructions Indication:Diarrhea Start:21-Feb-2019 Instruction Type:Provider Instructions for Treatment How to access health informa tion online Indication:Nonsmoker Start:24-Dec-2018 Instruction Type:Patient Education How to access health informa tion online - Detail Indication:Nonsmoker Start:24-Dec-2018 Instruction Type:Patient Education Patient Instructions Indication:Nonsmoker Start:24-Dec-2018 Instruction Type:Provider Instructions for Treatment How to access health informa tion online Indication:Nonsmoker Start:17-Jul-2018 Instruction Type:Patient Education How to access health informa tion online - Detail Indication:Nonsmoker Start:17-Jul-2018 Instruction Type:Patient Education Patient Instructions Indication:Nonsmoker Start:17-Jul-2018 Instruction Type:Provider Instructions for Treatment How to access health informa tion online Indication:BMI 33.0-33.9,adult Start:16-Jun-2017 Instruction Type:Patient Education How to access health informa tion online - Detail Indication:BMI 33.0-33.9,adult Start:16-Jun-2017 Instruction Type:Patient Education Patient Instructions Indication:BMI 33.0-33.9,adult Start:16-Jun-2017 Instruction Type:Provider Instructions for Treatment How to access health informa tion online - Detail Indication:Nonsmoker Start:19-Apr-2017 Instruction Type:Patient Education Patient Instructions Indication:Nonsmoker Start:19-Apr-2017 Instruction Type:Provider Instructions for Treatment How to access health informa tion online - Detail Indication:Nonsmoker Start:19-Apr-2017 Instruction Type:Patient Education Patient Instructions Indication:Nonsmoker Start:19-Apr-2017 Instruction Type:Provider Instructions for Treatment How to access health informa tion online - Detail Indication:Nonsmoker Start:13-Dec-2016 Instruction Type:Patient Education Patient Instructions Indication:Nonsmoker Start:13-Dec-2016 Instruction Type:Provider Instructions for Treatment obesity counseling Indication:Body mass index 35.0-35.9, adult Start:02-May-2016 Instruction Type:Provider Instructions for Treatment Patient Instructions Indication:Physical exam Start:02-May-2016 Instruction Type:Provider Instructions for Treatment How to access health informa tion online Indication:Pharyngitis, acute Start:03-Jul-2015 Instruction Type:Patient Education How to access health informa tion online - Detail Indication:Pharyngitis, acute Start:03-Jul-2015 Instruction Type:Patient Education Patient Instructions Indication:Pharyngitis, acute Start:03-Jul-2015 Instruction Type:Provider Instructions for Treatment How to access health informa tion online Indication:Annual physical exam Start:05-May-2015 Instruction Type:Patient Education How to access health informa tion online - Detail Indication:Annual physical exam Start:05-May-2015 Instruction Type:Patient Education Patient Instructions Indication:Annual physical exam Start:05-May-2015 Instruction Type:Provider Instructions for Treatment How to access health informa tion online Indication:Weight gain Start:26-May-2014 Instruction Type:Patient Education How to access health informa tion online - Detail Indication:Weight gain Start:26-May-2014 Instruction Type:Patient Education Patient Instructions Indication:Weight gain Start:26-May-2014 Instruction Type:Provider Instructions for Treatment Patient Instructions Indication:Annual physical exam Start:14-May-2014 Instruction Type:Provider Instructions for Treatment Patient Instructions Indication:Soft sore (chancroid) Start:04-Mar-2014 Instruction Type:Provider Instructions for Treatment Patient Instructions Indication:Family Planning Start:23-Jan-2014 Instruction Type:Provider Instructions for Treatment obesity counseling Indication:Weight gain Start:04-Jul-2013 Instruction Type:Provider Instructions for Treatment Patient Instructions Indication:Obesity Start:04-Jul-2013 Instruction Type:Provider Instructions for Treatment Patient Instructions Indication:Obesity Start:20-Jun-2013 Instruction Type:Provider Instructions for Treatment Patient Instructions Indication:Migraine with aura and without status migrainosus, not intractable Start:20-May-2013 Instruction Type:Provider Instructions for Treatment [facility]; [facility] Work Phone: Instructions* Name Dates Details Patient Instructions Indication:Non-smoker Start:19-Jan-2023 Instruction Type:Provider Instructions for Treatment How to Access Health Informa tion Online using Patient Portal and [employer] Apps Indication:Non-smoker Start:19-Jan-2023 Instruction Type:Patient Education Patient Instructions Indication:Non-smoker Start:04-Jan-2023 Instruction Type:Provider Instructions for Treatment How to Access Health Informa tion Online using Patient Portal and [employer] Apps Indication:Non-smoker Start:04-Jan-2023 Instruction Type:Patient Education Patient Instructions Indication:Obesity Start:15-Dec-2022 Instruction Type:Provider Instructions for Treatment How to Access Health Informa tion Online using Patient Portal and [employer] Apps Indication:Obesity Start:15-Dec-2022 Instruction Type:Patient Education Patient Instructions Indication:Bronchitis Start:25-Nov-2022 Instruction Type:Provider Instructions for Treatment How to Access Health Informa tion Online using Patient Portal and [employer] Apps Indication:Bronchitis Start:25-Nov-2022 Instruction Type:Patient Education Patient Instructions Indication:BMI 38.0-38.9,adult Start:11-Nov-2022 Instruction Type:Provider Instructions for Treatment How to Access Health Informa tion Online using Patient Portal and [employer] Apps Indication:BMI 38.0-38.9,adult Start:11-Nov-2022 Instruction Type:Patient Education Patient Instructions Indication:Non-smoker Start:09-May-2022 Instruction Type:Provider Instructions for Treatment How to Access Health Informa tion Online using Patient Portal and [employer] Apps Indication:Non-smoker Start:09-May-2022 Instruction Type:Patient Education Patient Instructions Indication:BMI 37.0-37.9, adult Start:24-Aug-2021 Instruction Type:Provider Instructions for Treatment How to Access Health Informa tion Online using Patient Portal and [employer] Apps Indication:BMI 37.0-37.9, adult Start:24-Aug-2021 Instruction Type:Patient Education Patient Instructions Indication:Tachycardia Start:15-Apr-2021 Instruction Type:Provider Instructions for Treatment How to Access Health Informa tion Online using Patient Portal and [employer] Apps Indication:Tachycardia Start:15-Apr-2021 Instruction Type:Patient Education Patient Instructions Indication:Nonsmoker Start:11-Sep-2020 Instruction Type:Provider Instructions for Treatment How to Access Health Informa tion Online using Patient Portal and [employer] Apps Indication:Nonsmoker Start:11-Sep-2020 Instruction Type:Patient Education Patient Instructions Indication:BMI 38.0-38.9,adult Start:07-Sep-2020 Instruction Type:Provider Instructions for Treatment How to Access Health Informa tion Online using Patient Portal and [employer] Apps Indication:BMI 38.0-38.9,adult Start:07-Sep-2020 Instruction Type:Patient Education How to access health informa tion online Indication:Nonsmoker Start:30-Apr-2020 Instruction Type:Patient Education How to access health informa tion online - Detail Indication:Nonsmoker Start:30-Apr-2020 Instruction Type:Patient Education Patient Instructions Indication:Nonsmoker Start:30-Apr-2020 Instruction Type:Provider Instructions for Treatment How to access health informa tion online Indication:Nonsmoker Start:27-Dec-2019 Instruction Type:Patient Education How to access health informa tion online - Detail Indication:Nonsmoker Start:27-Dec-2019 Instruction Type:Patient Education Patient Instructions Indication:Nonsmoker Start:27-Dec-2019 Instruction Type:Provider Instructions for Treatment How to access health informa tion online Indication:Nonsmoker Start:24-Dec-2019 Instruction Type:Patient Education How to access health informa tion online - Detail Indication:Nonsmoker Start:24-Dec-2019 Instruction Type:Patient Education Patient Instructions Indication:Nonsmoker Start:24-Dec-2019 Instruction Type:Provider Instructions for Treatment How to access health informa tion online Indication:Nonsmoker Start:02-May-2019 Instruction Type:Patient Education How to access health informa tion online - Detail Indication:Nonsmoker Start:02-May-2019 Instruction Type:Patient Education Patient Instructions Indication:Nonsmoker Start:02-May-2019 Instruction Type:Provider Instructions for Treatment How to access health informa tion online Indication:BMI 34.0-34.9,adult Start:21-Feb-2019 Instruction Type:Patient Education How to access health informa tion online - Detail Indication:BMI 34.0-34.9,adult Start:21-Feb-2019 Instruction Type:Patient Education Patient Instructions Indication:Diarrhea Start:21-Feb-2019 Instruction Type:Provider Instructions for Treatment How to access health informa tion online Indication:Nonsmoker Start:24-Dec-2018 Instruction Type:Patient Education How to access health informa tion online - Detail Indication:Nonsmoker Start:24-Dec-2018 Instruction Type:Patient Education Patient Instructions Indication:Nonsmoker Start:24-Dec-2018 Instruction Type:Provider Instructions for Treatment How to access health informa tion online Indication:Nonsmoker Start:17-Jul-2018 Instruction Type:Patient Education How to access health informa tion online - Detail Indication:Nonsmoker Start:17-Jul-2018 Instruction Type:Patient Education Patient Instructions Indication:Nonsmoker Start:17-Jul-2018 Instruction Type:Provider Instructions for Treatment How to access health informa tion online Indication:BMI 33.0-33.9,adult Start:16-Jun-2017 Instruction Type:Patient Education How to access health informa tion online - Detail Indication:BMI 33.0-33.9,adult Start:16-Jun-2017 Instruction Type:Patient Education Patient Instructions Indication:BMI 33.0-33.9,adult Start:16-Jun-2017 Instruction Type:Provider Instructions for Treatment How to access health informa tion online - Detail Indication:Nonsmoker Start:19-Apr-2017 Instruction Type:Patient Education Patient Instructions Indication:Nonsmoker Start:19-Apr-2017 Instruction Type:Provider Instructions for Treatment How to access health informa tion online - Detail Indication:Nonsmoker Start:19-Apr-2017 Instruction Type:Patient Education Patient Instructions Indication:Nonsmoker Start:19-Apr-2017 Instruction Type:Provider Instructions for Treatment How to access health informa tion online - Detail Indication:Nonsmoker Start:13-Dec-2016 Instruction Type:Patient Education Patient Instructions Indication:Nonsmoker Start:13-Dec-2016 Instruction Type:Provider Instructions for Treatment obesity counseling Indication:Body mass index 35.0-35.9, adult Start:02-May-2016 Instruction Type:Provider Instructions for Treatment Patient Instructions Indication:Physical exam Start:02-May-2016 Instruction Type:Provider Instructions for Treatment How to access health informa tion online Indication:Pharyngitis, acute Start:03-Jul-2015 Instruction Type:Patient Education How to access health informa tion online - Detail Indication:Pharyngitis, acute Start:03-Jul-2015 Instruction Type:Patient Education Patient Instructions Indication:Pharyngitis, acute Start:03-Jul-2015 Instruction Type:Provider Instructions for Treatment How to access health informa tion online Indication:Annual physical exam Start:05-May-2015 Instruction Type:Patient Education How to access health informa tion online - Detail Indication:Annual physical exam Start:05-May-2015 Instruction Type:Patient Education Patient Instructions Indication:Annual physical exam Start:05-May-2015 Instruction Type:Provider Instructions for Treatment How to access health informa tion online Indication:Weight gain Start:26-May-2014 Instruction Type:Patient Education How to access health informa tion online - Detail Indication:Weight gain Start:26-May-2014 Instruction Type:Patient Education Patient Instructions Indication:Weight gain Start:26-May-2014 Instruction Type:Provider Instructions for Treatment Patient Instructions Indication:Annual physical exam Start:14-May-2014 Instruction Type:Provider Instructions for Treatment Patient Instructions Indication:Soft sore (chancroid) Start:04-Mar-2014 Instruction Type:Provider Instructions for Treatment Patient Instructions Indication:Family Planning Start:23-Jan-2014 Instruction Type:Provider Instructions for Treatment obesity counseling Indication:Weight gain Start:04-Jul-2013 Instruction Type:Provider Instructions for Treatment Patient Instructions Indication:Obesity Start:04-Jul-2013 Instruction Type:Provider Instructions for Treatment Patient Instructions Indication:Obesity Start:20-Jun-2013 Instruction Type:Provider Instructions for Treatment Patient Instructions Indication:Migraine with aura and without status migrainosus, not intractable Start:20-May-2013 Instruction Type:Provider Instructions for Treatment [facility]; [facility] Work Phone: Instructions* Name Dates Details Patient Instructions Indication:BMI 36.0-36.9,adult Start:30-Jan-2023 Instruction Type:Provider Instructions for Treatment How to Access Health Informa tion Online using Patient Portal and [employer] Apps Indication:BMI 36.0-36.9,adult Start:30-Jan-2023 Instruction Type:Patient Education Patient Instructions Indication:Non-smoker Start:19-Jan-2023 Instruction Type:Provider Instructions for Treatment How to Access Health Informa tion Online using Patient Portal and [employer] Apps Indication:Non-smoker Start:19-Jan-2023 Instruction Type:Patient Education Patient Instructions Indication:Non-smoker Start:04-Jan-2023 Instruction Type:Provider Instructions for Treatment How to Access Health Informa tion Online using Patient Portal and [employer] Apps Indication:Non-smoker Start:04-Jan-2023 Instruction Type:Patient Education Patient Instructions Indication:Obesity Start:15-Dec-2022 Instruction Type:Provider Instructions for Treatment How to Access Health Informa tion Online using Patient Portal and [employer] Apps Indication:Obesity Start:15-Dec-2022 Instruction Type:Patient Education Patient Instructions Indication:Bronchitis Start:25-Nov-2022 Instruction Type:Provider Instructions for Treatment How to Access Health Informa tion Online using Patient Portal and [employer] Apps Indication:Bronchitis Start:25-Nov-2022 Instruction Type:Patient Education Patient Instructions Indication:BMI 38.0-38.9,adult Start:11-Nov-2022 Instruction Type:Provider Instructions for Treatment How to Access Health Informa tion Online using Patient Portal and [employer] Apps Indication:BMI 38.0-38.9,adult Start:11-Nov-2022 Instruction Type:Patient Education Patient Instructions Indication:Non-smoker Start:09-May-2022 Instruction Type:Provider Instructions for Treatment How to Access Health Informa tion Online using Patient Portal and [employer] Apps Indication:Non-smoker Start:09-May-2022 Instruction Type:Patient Education Patient Instructions Indication:BMI 37.0-37.9, adult Start:24-Aug-2021 Instruction Type:Provider Instructions for Treatment How to Access Health Informa tion Online using Patient Portal and [employer] Apps Indication:BMI 37.0-37.9, adult Start:24-Aug-2021 Instruction Type:Patient Education Patient Instructions Indication:Tachycardia Start:15-Apr-2021 Instruction Type:Provider Instructions for Treatment How to Access Health Informa tion Online using Patient Portal and [employer] Apps Indication:Tachycardia Start:15-Apr-2021 Instruction Type:Patient Education Patient Instructions Indication:Nonsmoker Start:11-Sep-2020 Instruction Type:Provider Instructions for Treatment How to Access Health Informa tion Online using Patient Portal and [employer] Apps Indication:Nonsmoker Start:11-Sep-2020 Instruction Type:Patient Education Patient Instructions Indication:BMI 38.0-38.9,adult Start:07-Sep-2020 Instruction Type:Provider Instructions for Treatment How to Access Health Informa tion Online using Patient Portal and [employer] Apps Indication:BMI 38.0-38.9,adult Start:07-Sep-2020 Instruction Type:Patient Education How to access health informa tion online Indication:Nonsmoker Start:30-Apr-2020 Instruction Type:Patient Education How to access health informa tion online - Detail Indication:Nonsmoker Start:30-Apr-2020 Instruction Type:Patient Education Patient Instructions Indication:Nonsmoker Start:30-Apr-2020 Instruction Type:Provider Instructions for Treatment How to access health informa tion online Indication:Nonsmoker Start:27-Dec-2019 Instruction Type:Patient Education How to access health informa tion online - Detail Indication:Nonsmoker Start:27-Dec-2019 Instruction Type:Patient Education Patient Instructions Indication:Nonsmoker Start:27-Dec-2019 Instruction Type:Provider Instructions for Treatment How to access health informa tion online Indication:Nonsmoker Start:24-Dec-2019 Instruction Type:Patient Education How to access health informa tion online - Detail Indication:Nonsmoker Start:24-Dec-2019 Instruction Type:Patient Education Patient Instructions Indication:Nonsmoker Start:24-Dec-2019 Instruction Type:Provider Instructions for Treatment How to access health informa tion online Indication:Nonsmoker Start:02-May-2019 Instruction Type:Patient Education How to access health informa tion online - Detail Indication:Nonsmoker Start:02-May-2019 Instruction Type:Patient Education Patient Instructions Indication:Nonsmoker Start:02-May-2019 Instruction Type:Provider Instructions for Treatment How to access health informa tion online Indication:BMI 34.0-34.9,adult Start:21-Feb-2019 Instruction Type:Patient Education How to access health informa tion online - Detail Indication:BMI 34.0-34.9,adult Start:21-Feb-2019 Instruction Type:Patient Education Patient Instructions Indication:Diarrhea Start:21-Feb-2019 Instruction Type:Provider Instructions for Treatment How to access health informa tion online Indication:Nonsmoker Start:24-Dec-2018 Instruction Type:Patient Education How to access health informa tion online - Detail Indication:Nonsmoker Start:24-Dec-2018 Instruction Type:Patient Education Patient Instructions Indication:Nonsmoker Start:24-Dec-2018 Instruction Type:Provider Instructions for Treatment How to access health informa tion online Indication:Nonsmoker Start:17-Jul-2018 Instruction Type:Patient Education How to access health informa tion online - Detail Indication:Nonsmoker Start:17-Jul-2018 Instruction Type:Patient Education Patient Instructions Indication:Nonsmoker Start:17-Jul-2018 Instruction Type:Provider Instructions for Treatment How to access health informa tion online Indication:BMI 33.0-33.9,adult Start:16-Jun-2017 Instruction Type:Patient Education How to access health informa tion online - Detail Indication:BMI 33.0-33.9,adult Start:16-Jun-2017 Instruction Type:Patient Education Patient Instructions Indication:BMI 33.0-33.9,adult Start:16-Jun-2017 Instruction Type:Provider Instructions for Treatment How to access health informa tion online - Detail Indication:Nonsmoker Start:19-Apr-2017 Instruction Type:Patient Education Patient Instructions Indication:Nonsmoker Start:19-Apr-2017 Instruction Type:Provider Instructions for Treatment How to access health informa tion online - Detail Indication:Nonsmoker Start:19-Apr-2017 Instruction Type:Patient Education Patient Instructions Indication:Nonsmoker Start:19-Apr-2017 Instruction Type:Provider Instructions for Treatment How to access health informa tion online - Detail Indication:Nonsmoker Start:13-Dec-2016 Instruction Type:Patient Education Patient Instructions Indication:Nonsmoker Start:13-Dec-2016 Instruction Type:Provider Instructions for Treatment obesity counseling Indication:Body mass index 35.0-35.9, adult Start:02-May-2016 Instruction Type:Provider Instructions for Treatment Patient Instructions Indication:Physical exam Start:02-May-2016 Instruction Type:Provider Instructions for Treatment How to access health informa tion online Indication:Pharyngitis, acute Start:03-Jul-2015 Instruction Type:Patient Education How to access health informa tion online - Detail Indication:Pharyngitis, acute Start:03-Jul-2015 Instruction Type:Patient Education Patient Instructions Indication:Pharyngitis, acute Start:03-Jul-2015 Instruction Type:Provider Instructions for Treatment How to access health informa tion online Indication:Annual physical exam Start:05-May-2015 Instruction Type:Patient Education How to access health informa tion online - Detail Indication:Annual physical exam Start:05-May-2015 Instruction Type:Patient Education Patient Instructions Indication:Annual physical exam Start:05-May-2015 Instruction Type:Provider Instructions for Treatment How to access health informa tion online Indication:Weight gain Start:26-May-2014 Instruction Type:Patient Education How to access health informa tion online - Detail Indication:Weight gain Start:26-May-2014 Instruction Type:Patient Education Patient Instructions Indication:Weight gain Start:26-May-2014 Instruction Type:Provider Instructions for Treatment Patient Instructions Indication:Annual physical exam Start:14-May-2014 Instruction Type:Provider Instructions for Treatment Patient Instructions Indication:Soft sore (chancroid) Start:04-Mar-2014 Instruction Type:Provider Instructions for Treatment Patient Instructions Indication:Family Planning Start:23-Jan-2014 Instruction Type:Provider Instructions for Treatment obesity counseling Indication:Weight gain Start:04-Jul-2013 Instruction Type:Provider Instructions for Treatment Patient Instructions Indication:Obesity Start:04-Jul-2013 Instruction Type:Provider Instructions for Treatment Patient Instructions Indication:Obesity Start:20-Jun-2013 Instruction Type:Provider Instructions for Treatment Patient Instructions Indication:Migraine with aura and without status migrainosus, not intractable Start:20-May-2013 Instruction Type:Provider Instructions for Treatment [facility] Work Phone: Instructions* Name Dates Details Patient Instructions Indication:Non-smoker Start:27-Feb-2023 Instruction Type:Provider Instructions for Treatment How to Access Health Informa tion Online using Patient Portal and [employer] Apps Indication:Non-smoker Start:27-Feb-2023 Instruction Type:Patient Education Patient Instructions Indication:BMI 36.0-36.9,adult Start:30-Jan-2023 Instruction Type:Provider Instructions for Treatment How to Access Health Informa tion Online using Patient Portal and [employer]rd [employer] Apps Indication:BMI 36.0-36.9,adult Start:30-Jan-2023 Instruction Type:Patient Education Patient Instructions Indication:Non-smoker Start:19-Jan-2023 Instruction Type:Provider Instructions for Treatment How to Access Health Informa tion Online using Patient Portal and [employer]rd [employer] Apps Indication:Non-smoker Start:19-Jan-2023 Instruction Type:Patient Education Patient Instructions Indication:Non-smoker Start:04-Jan-2023 Instruction Type:Provider Instructions for Treatment How to Access Health Informa tion Online using Patient Portal and [employer] Apps Indication:Non-smoker Start:04-Jan-2023 Instruction Type:Patient Education Patient Instructions Indication:Obesity Start:15-Dec-2022 Instruction Type:Provider Instructions for Treatment How to Access Health Informa tion Online using Patient Portal and [employer]rd [employer] Apps Indication:Obesity Start:15-Dec-2022 Instruction Type:Patient Education Patient Instructions Indication:Bronchitis Start:25-Nov-2022 Instruction Type:Provider Instructions for Treatment How to Access Health Informa tion Online using Patient Portal and [employer]rd [employer] Apps Indication:Bronchitis Start:25-Nov-2022 Instruction Type:Patient Education Patient Instructions Indication:BMI 38.0-38.9,adult Start:11-Nov-2022 Instruction Type:Provider Instructions for Treatment How to Access Health Informa tion Online using Patient Portal and [employer] Apps Indication:BMI 38.0-38.9,adult Start:11-Nov-2022 Instruction Type:Patient Education Patient Instructions Indication:Non-smoker Start:09-May-2022 Instruction Type:Provider Instructions for Treatment How to Access Health Informa tion Online using Patient Portal and [employer] Apps Indication:Non-smoker Start:09-May-2022 Instruction Type:Patient Education Patient Instructions Indication:BMI 37.0-37.9, adult Start:24-Aug-2021 Instruction Type:Provider Instructions for Treatment How to Access Health Informa tion Online using Patient Portal and [employer]rd [employer] Apps Indication:BMI 37.0-37.9, adult Start:24-Aug-2021 Instruction Type:Patient Education Patient Instructions Indication:Tachycardia Start:15-Apr-2021 Instruction Type:Provider Instructions for Treatment How to Access Health Informa tion Online using Patient Portal and [employer] Apps Indication:Tachycardia Start:15-Apr-2021 Instruction Type:Patient Education Patient Instructions Indication:Nonsmoker Start:11-Sep-2020 Instruction Type:Provider Instructions for Treatment How to Access Health Informa tion Online using Patient Portal and [employer] Apps Indication:Nonsmoker Start:11-Sep-2020 Instruction Type:Patient Education Patient Instructions Indication:BMI 38.0-38.9,adult Start:07-Sep-2020 Instruction Type:Provider Instructions for Treatment How to Access Health Informa tion Online using Patient Portal and [employer] Apps Indication:BMI 38.0-38.9,adult Start:07-Sep-2020 Instruction Type:Patient Education How to access health informa tion online Indication:Nonsmoker Start:30-Apr-2020 Instruction Type:Patient Education How to access health informa tion online - Detail Indication:Nonsmoker Start:30-Apr-2020 Instruction Type:Patient Education Patient Instructions Indication:Nonsmoker Start:30-Apr-2020 Instruction Type:Provider Instructions for Treatment How to access health informa tion online Indication:Nonsmoker Start:27-Dec-2019 Instruction Type:Patient Education How to access health informa tion online - Detail Indication:Nonsmoker Start:27-Dec-2019 Instruction Type:Patient Education Patient Instructions Indication:Nonsmoker Start:27-Dec-2019 Instruction Type:Provider Instructions for Treatment How to access health informa tion online Indication:Nonsmoker Start:24-Dec-2019 Instruction Type:Patient Education How to access health informa tion online - Detail Indication:Nonsmoker Start:24-Dec-2019 Instruction Type:Patient Education Patient Instructions Indication:Nonsmoker Start:24-Dec-2019 Instruction Type:Provider Instructions for Treatment How to access health informa tion online Indication:Nonsmoker Start:02-May-2019 Instruction Type:Patient Education How to access health informa tion online - Detail Indication:Nonsmoker Start:02-May-2019 Instruction Type:Patient Education Patient Instructions Indication:Nonsmoker Start:02-May-2019 Instruction Type:Provider Instructions for Treatment How to access health informa tion online Indication:BMI 34.0-34.9,adult Start:21-Feb-2019 Instruction Type:Patient Education How to access health informa tion online - Detail Indication:BMI 34.0-34.9,adult Start:21-Feb-2019 Instruction Type:Patient Education Patient Instructions Indication:Diarrhea Start:21-Feb-2019 Instruction Type:Provider Instructions for Treatment How to access health informa tion online Indication:Nonsmoker Start:24-Dec-2018 Instruction Type:Patient Education How to access health informa tion online - Detail Indication:Nonsmoker Start:24-Dec-2018 Instruction Type:Patient Education Patient Instructions Indication:Nonsmoker Start:24-Dec-2018 Instruction Type:Provider Instructions for Treatment How to access health informa tion online Indication:Nonsmoker Start:17-Jul-2018 Instruction Type:Patient Education How to access health informa tion online - Detail Indication:Nonsmoker Start:17-Jul-2018 Instruction Type:Patient Education Patient Instructions Indication:Nonsmoker Start:17-Jul-2018 Instruction Type:Provider Instructions for Treatment How to access health informa tion online Indication:BMI 33.0-33.9,adult Start:16-Jun-2017 Instruction Type:Patient Education How to access health informa tion online - Detail Indication:BMI 33.0-33.9,adult Start:16-Jun-2017 Instruction Type:Patient Education Patient Instructions Indication:BMI 33.0-33.9,adult Start:16-Jun-2017 Instruction Type:Provider Instructions for Treatment How to access health informa tion online - Detail Indication:Nonsmoker Start:19-Apr-2017 Instruction Type:Patient Education Patient Instructions Indication:Nonsmoker Start:19-Apr-2017 Instruction Type:Provider Instructions for Treatment How to access health informa tion online - Detail Indication:Nonsmoker Start:19-Apr-2017 Instruction Type:Patient Education Patient Instructions Indication:Nonsmoker Start:19-Apr-2017 Instruction Type:Provider Instructions for Treatment How to access health informa tion online - Detail Indication:Nonsmoker Start:13-Dec-2016 Instruction Type:Patient Education Patient Instructions Indication:Nonsmoker Start:13-Dec-2016 Instruction Type:Provider Instructions for Treatment obesity counseling Indication:Body mass index 35.0-35.9, adult Start:02-May-2016 Instruction Type:Provider Instructions for Treatment Patient Instructions Indication:Physical exam Start:02-May-2016 Instruction Type:Provider Instructions for Treatment How to access health informa tion online Indication:Pharyngitis, acute Start:03-Jul-2015 Instruction Type:Patient Education How to access health informa tion online - Detail Indication:Pharyngitis, acute Start:03-Jul-2015 Instruction Type:Patient Education Patient Instructions Indication:Pharyngitis, acute Start:03-Jul-2015 Instruction Type:Provider Instructions for Treatment How to access health informa tion online Indication:Annual physical exam Start:05-May-2015 Instruction Type:Patient Education How to access health informa tion online - Detail Indication:Annual physical exam Start:05-May-2015 Instruction Type:Patient Education Patient Instructions Indication:Annual physical exam Start:05-May-2015 Instruction Type:Provider Instructions for Treatment How to access health informa tion online Indication:Weight gain Start:26-May-2014 Instruction Type:Patient Education How to access health informa tion online - Detail Indication:Weight gain Start:26-May-2014 Instruction Type:Patient Education Patient Instructions Indication:Weight gain Start:26-May-2014 Instruction Type:Provider Instructions for Treatment Patient Instructions Indication:Annual physical exam Start:14-May-2014 Instruction Type:Provider Instructions for Treatment Patient Instructions Indication:Soft sore (chancroid) Start:04-Mar-2014 Instruction Type:Provider Instructions for Treatment Patient Instructions Indication:Family Planning Start:23-Jan-2014 Instruction Type:Provider Instructions for Treatment obesity counseling Indication:Weight gain Start:04-Jul-2013 Instruction Type:Provider Instructions for Treatment Patient Instructions Indication:Obesity Start:04-Jul-2013 Instruction Type:Provider Instructions for Treatment Patient Instructions Indication:Obesity Start:20-Jun-2013 Instruction Type:Provider Instructions for Treatment Patient Instructions Indication:Migraine with aura and without status migrainosus, not intractable Start:20-May-2013 Instruction Type:Provider Instructions for Treatment [facility]; [facility] Work Phone: Instructions* Name Dates Details How to Access Health Informa tion Online using Patient Portal and [employer] Apps Indication:Non-smoker Start:28-Apr-2023 Instruction Type:Patient Education Patient Instructions Indication:Non-smoker Start:28-Apr-2023 Instruction Type:Provider Instructions for Treatment Patient Instructions Indication:Non-smoker Start:27-Feb-2023 Instruction Type:Provider Instructions for Treatment How to Access Health Informa tion Online using Patient Portal and [employer] Apps Indication:Non-smoker Start:27-Feb-2023 Instruction Type:Patient Education Patient Instructions Indication:BMI 36.0-36.9,adult Start:30-Jan-2023 Instruction Type:Provider Instructions for Treatment How to Access Health Informa tion Online using Patient Portal and [employer] Apps Indication:BMI 36.0-36.9,adult Start:30-Jan-2023 Instruction Type:Patient Education Patient Instructions Indication:Non-smoker Start:19-Jan-2023 Instruction Type:Provider Instructions for Treatment How to Access Health Informa tion Online using Patient Portal and [employer] Apps Indication:Non-smoker Start:19-Jan-2023 Instruction Type:Patient Education Patient Instructions Indication:Non-smoker Start:04-Jan-2023 Instruction Type:Provider Instructions for Treatment How to Access Health Informa tion Online using Patient Portal and [employer] Apps Indication:Non-smoker Start:04-Jan-2023 Instruction Type:Patient Education Patient Instructions Indication:Obesity Start:15-Dec-2022 Instruction Type:Provider Instructions for Treatment How to Access Health Informa tion Online using Patient Portal and [employer] Apps Indication:Obesity Start:15-Dec-2022 Instruction Type:Patient Education Patient Instructions Indication:Bronchitis Start:25-Nov-2022 Instruction Type:Provider Instructions for Treatment How to Access Health Informa tion Online using Patient Portal and [employer] Apps Indication:Bronchitis Start:25-Nov-2022 Instruction Type:Patient Education Patient Instructions Indication:BMI 38.0-38.9,adult Start:11-Nov-2022 Instruction Type:Provider Instructions for Treatment How to Access Health Informa tion Online using Patient Portal and [employer] Apps Indication:BMI 38.0-38.9,adult Start:11-Nov-2022 Instruction Type:Patient Education Patient Instructions Indication:Non-smoker Start:09-May-2022 Instruction Type:Provider Instructions for Treatment How to Access Health Informa tion Online using Patient Portal and [employer] Apps Indication:Non-smoker Start:09-May-2022 Instruction Type:Patient Education Patient Instructions Indication:BMI 37.0-37.9, adult Start:24-Aug-2021 Instruction Type:Provider Instructions for Treatment How to Access Health Informa tion Online using Patient Portal and [employer] Apps Indication:BMI 37.0-37.9, adult Start:24-Aug-2021 Instruction Type:Patient Education Patient Instructions Indication:Tachycardia Start:15-Apr-2021 Instruction Type:Provider Instructions for Treatment How to Access Health Informa tion Online using Patient Portal and [employer] Apps Indication:Tachycardia Start:15-Apr-2021 Instruction Type:Patient Education Patient Instructions Indication:Nonsmoker Start:11-Sep-2020 Instruction Type:Provider Instructions for Treatment How to Access Health Informa tion Online using Patient Portal and [employer] Apps Indication:Nonsmoker Start:11-Sep-2020 Instruction Type:Patient Education Patient Instructions Indication:BMI 38.0-38.9,adult Start:07-Sep-2020 Instruction Type:Provider Instructions for Treatment How to Access Health Informa tion Online using Patient Portal and [employer] Apps Indication:BMI 38.0-38.9,adult Start:07-Sep-2020 Instruction Type:Patient Education How to access health informa tion online Indication:Nonsmoker Start:30-Apr-2020 Instruction Type:Patient Education How to access health informa tion online - Detail Indication:Nonsmoker Start:30-Apr-2020 Instruction Type:Patient Education Patient Instructions Indication:Nonsmoker Start:30-Apr-2020 Instruction Type:Provider Instructions for Treatment How to access health informa tion online Indication:Nonsmoker Start:27-Dec-2019 Instruction Type:Patient Education How to access health informa tion online - Detail Indication:Nonsmoker Start:27-Dec-2019 Instruction Type:Patient Education Patient Instructions Indication:Nonsmoker Start:27-Dec-2019 Instruction Type:Provider Instructions for Treatment How to access health informa tion online Indication:Nonsmoker Start:24-Dec-2019 Instruction Type:Patient Education How to access health informa tion online - Detail Indication:Nonsmoker Start:24-Dec-2019 Instruction Type:Patient Education Patient Instructions Indication:Nonsmoker Start:24-Dec-2019 Instruction Type:Provider Instructions for Treatment How to access health informa tion online Indication:Nonsmoker Start:02-May-2019 Instruction Type:Patient Education How to access health informa tion online - Detail Indication:Nonsmoker Start:02-May-2019 Instruction Type:Patient Education Patient Instructions Indication:Nonsmoker Start:02-May-2019 Instruction Type:Provider Instructions for Treatment How to access health informa tion online Indication:BMI 34.0-34.9,adult Start:21-Feb-2019 Instruction Type:Patient Education How to access health informa tion online - Detail Indication:BMI 34.0-34.9,adult Start:21-Feb-2019 Instruction Type:Patient Education Patient Instructions Indication:Diarrhea Start:21-Feb-2019 Instruction Type:Provider Instructions for Treatment How to access health informa tion online Indication:Nonsmoker Start:24-Dec-2018 Instruction Type:Patient Education How to access health informa tion online - Detail Indication:Nonsmoker Start:24-Dec-2018 Instruction Type:Patient Education Patient Instructions Indication:Nonsmoker Start:24-Dec-2018 Instruction Type:Provider Instructions for Treatment How to access health informa tion online Indication:Nonsmoker Start:17-Jul-2018 Instruction Type:Patient Education How to access health informa tion online - Detail Indication:Nonsmoker Start:17-Jul-2018 Instruction Type:Patient Education Patient Instructions Indication:Nonsmoker Start:17-Jul-2018 Instruction Type:Provider Instructions for Treatment How to access health informa tion online Indication:BMI 33.0-33.9,adult Start:16-Jun-2017 Instruction Type:Patient Education How to access health informa tion online - Detail Indication:BMI 33.0-33.9,adult Start:16-Jun-2017 Instruction Type:Patient Education Patient Instructions Indication:BMI 33.0-33.9,adult Start:16-Jun-2017 Instruction Type:Provider Instructions for Treatment How to access health informa tion online - Detail Indication:Nonsmoker Start:19-Apr-2017 Instruction Type:Patient Education Patient Instructions Indication:Nonsmoker Start:19-Apr-2017 Instruction Type:Provider Instructions for Treatment How to access health informa tion online - Detail Indication:Nonsmoker Start:19-Apr-2017 Instruction Type:Patient Education Patient Instructions Indication:Nonsmoker Start:19-Apr-2017 Instruction Type:Provider Instructions for Treatment How to access health informa tion online - Detail Indication:Nonsmoker Start:13-Dec-2016 Instruction Type:Patient Education Patient Instructions Indication:Nonsmoker Start:13-Dec-2016 Instruction Type:Provider Instructions for Treatment obesity counseling Indication:Body mass index 35.0-35.9, adult Start:02-May-2016 Instruction Type:Provider Instructions for Treatment Patient Instructions Indication:Physical exam Start:02-May-2016 Instruction Type:Provider Instructions for Treatment How to access health informa tion online Indication:Pharyngitis, acute Start:03-Jul-2015 Instruction Type:Patient Education How to access health informa tion online - Detail Indication:Pharyngitis, acute Start:03-Jul-2015 Instruction Type:Patient Education Patient Instructions Indication:Pharyngitis, acute Start:03-Jul-2015 Instruction Type:Provider Instructions for Treatment How to access health informa tion online Indication:Annual physical exam Start:05-May-2015 Instruction Type:Patient Education How to access health informa tion online - Detail Indication:Annual physical exam Start:05-May-2015 Instruction Type:Patient Education Patient Instructions Indication:Annual physical exam Start:05-May-2015 Instruction Type:Provider Instructions for Treatment How to access health informa tion online Indication:Weight gain Start:26-May-2014 Instruction Type:Patient Education How to access health informa tion online - Detail Indication:Weight gain Start:26-May-2014 Instruction Type:Patient Education Patient Instructions Indication:Weight gain Start:26-May-2014 Instruction Type:Provider Instructions for Treatment Patient Instructions Indication:Annual physical exam Start:14-May-2014 Instruction Type:Provider Instructions for Treatment Patient Instructions Indication:Soft sore (chancroid) Start:04-Mar-2014 Instruction Type:Provider Instructions for Treatment Patient Instructions Indication:Family Planning Start:23-Jan-2014 Instruction Type:Provider Instructions for Treatment obesity counseling Indication:Weight gain Start:04-Jul-2013 Instruction Type:Provider Instructions for Treatment Patient Instructions Indication:Obesity Start:04-Jul-2013 Instruction Type:Provider Instructions for Treatment Patient Instructions Indication:Obesity Start:20-Jun-2013 Instruction Type:Provider Instructions for Treatment Patient Instructions Indication:Migraine with aura and without status migrainosus, not intractable Start:20-May-2013 Instruction Type:Provider Instructions for Treatment [facility]; [facility] Work Phone: reason for referral (narrative)No reason for referral information availableWCleveland [facility] Work Phone: Instructions Name Dates Details Nonsmoker : How to access he alth information online Indication:Nonsmoker Nonsmoker : How to access he alth information online - Detail Indication:Nonsmoker Nonsmoker : Patient Instruct ions Indication:Nonsmoker BMI 33.0-33.9,adult : How to access health information online Indication:BMI 33.0-33.9,adult BMI 33.0-33.9,adult : How to access health information online - Detail Indication:BMI 33.0-33.9,adult BMI 33.0-33.9,adult : Patien t Instructions Indication:BMI 33.0-33.9,adult Body mass index 35.0-35.9, a dult : obesity counseling Indication:Body mass index 35.0-35.9, adult Physical exam : Patient Inst ructions Indication:Physical exam Pharyngitis, acute : How to access health information online Indication:Pharyngitis, acute Pharyngitis, acute : How to access health information online - Detail Indication:Pharyngitis, acute Pharyngitis, acute : Patient Instructions Indication:Pharyngitis, acute Annual physical exam : How t o access health information online Indication:Annual physical exam Annual physical exam : How t o access health information online - Detail Indication:Annual physical exam Annual physical exam : Patie nt Instructions Indication:Annual physical exam Weight gain : How to access health information online Indication:Weight gain Weight gain : How to access health information online - Detail Indication:Weight gain Weight gain : Patient Instru ctions Indication:Weight gain Soft sore (chancroid) : Yulissa ent Instructions Indication:Soft sore (chancroid) Family Planning : Patient In structions Indication:Family Planning Weight gain : obesity counse ling Indication:Weight gain Obesity : Patient Instructio ns Indication:Obesity Migraine with aura and witho ut status migrainosus, not intractable : Patient Instructions Indication:Migraine with aura and without status migrainosus, not intractable Name Dates Details How to access health informa tion online Indication:Nonsmoker Start:24-Dec-2018 Instruction Type:Patient Education How to access health informa tion online - Detail Indication:Nonsmoker Start:24-Dec-2018 Instruction Type:Patient Education Patient Instructions Indication:Nonsmoker Start:24-Dec-2018 Instruction Type:Provider Instructions for Treatment How to access health informa tion online Indication:Nonsmoker Start:17-Jul-2018 Instruction Type:Patient Education How to access health informa tion online - Detail Indication:Nonsmoker Start:17-Jul-2018 Instruction Type:Patient Education Patient Instructions Indication:Nonsmoker Start:17-Jul-2018 Instruction Type:Provider Instructions for Treatment How to access health informa tion online Indication:BMI 33.0-33.9,adult Start:16-Jun-2017 Instruction Type:Patient Education How to access health informa tion online - Detail Indication:BMI 33.0-33.9,adult Start:16-Jun-2017 Instruction Type:Patient Education Patient Instructions Indication:BMI 33.0-33.9,adult Start:16-Jun-2017 Instruction Type:Provider Instructions for Treatment How to access health informa tion online - Detail Indication:Nonsmoker Start:19-Apr-2017 Instruction Type:Patient Education Patient Instructions Indication:Nonsmoker Start:19-Apr-2017 Instruction Type:Provider Instructions for Treatment How to access health informa tion online - Detail Indication:Nonsmoker Start:13-Dec-2016 Instruction Type:Patient Education Patient Instructions Indication:Nonsmoker Start:13-Dec-2016 Instruction Type:Provider Instructions for Treatment obesity counseling Indication:Body mass index 35.0-35.9, adult Start:02-May-2016 Instruction Type:Provider Instructions for Treatment Patient Instructions Indication:Physical exam Start:02-May-2016 Instruction Type:Provider Instructions for Treatment How to access health informa tion online Indication:Pharyngitis, acute Start:03-Jul-2015 Instruction Type:Patient Education How to access health informa tion online - Detail Indication:Pharyngitis, acute Start:03-Jul-2015 Instruction Type:Patient Education Patient Instructions Indication:Pharyngitis, acute Start:03-Jul-2015 Instruction Type:Provider Instructions for Treatment How to access health informa tion online Indication:Annual physical exam Start:05-May-2015 Instruction Type:Patient Education How to access health informa tion online - Detail Indication:Annual physical exam Start:05-May-2015 Instruction Type:Patient Education Patient Instructions Indication:Annual physical exam Start:05-May-2015 Instruction Type:Provider Instructions for Treatment How to access health informa tion online Indication:Weight gain Start:26-May-2014 Instruction Type:Patient Education How to access health informa tion online - Detail Indication:Weight gain Start:26-May-2014 Instruction Type:Patient Education Patient Instructions Indication:Weight gain Start:26-May-2014 Instruction Type:Provider Instructions for Treatment Patient Instructions Indication:Annual physical exam Start:14-May-2014 Instruction Type:Provider Instructions for Treatment Patient Instructions Indication:Soft sore (chancroid) Start:04-Mar-2014 Instruction Type:Provider Instructions for Treatment Patient Instructions Indication:Family Planning Start:23-Jan-2014 Instruction Type:Provider Instructions for Treatment obesity counseling Indication:Weight gain Start:04-Jul-2013 Instruction Type:Provider Instructions for Treatment Patient Instructions Indication:Obesity Start:04-Jul-2013 Instruction Type:Provider Instructions for Treatment Patient Instructions Indication:Obesity Start:20-Jun-2013 Instruction Type:Provider Instructions for Treatment Patient Instructions Indication:Migraine with aura and without status migrainosus, not intractable Start:20-May-2013 Instruction Type:Provider Instructions for Treatment Name Dates Details How to access health informa tion online Indication:Nonsmoker Start:24-Dec-2018 Instruction Type:Patient Education How to access health informa tion online - Detail Indication:Nonsmoker Start:24-Dec-2018 Instruction Type:Patient Education Patient Instructions Indication:Nonsmoker Start:24-Dec-2018 Instruction Type:Provider Instructions for Treatment How to access health informa tion online Indication:Nonsmoker Start:17-Jul-2018 Instruction Type:Patient Education How to access health informa tion online - Detail Indication:Nonsmoker Start:17-Jul-2018 Instruction Type:Patient Education Patient Instructions Indication:Nonsmoker Start:17-Jul-2018 Instruction Type:Provider Instructions for Treatment How to access health informa tion online Indication:BMI 33.0-33.9,adult Start:16-Jun-2017 Instruction Type:Patient Education How to access health informa tion online - Detail Indication:BMI 33.0-33.9,adult Start:16-Jun-2017 Instruction Type:Patient Education Patient Instructions Indication:BMI 33.0-33.9,adult Start:16-Jun-2017 Instruction Type:Provider Instructions for Treatment How to access health informa tion online - Detail Indication:Nonsmoker Start:19-Apr-2017 Instruction Type:Patient Education Patient Instructions Indication:Nonsmoker Start:19-Apr-2017 Instruction Type:Provider Instructions for Treatment How to access health informa tion online - Detail Indication:Nonsmoker Start:13-Dec-2016 Instruction Type:Patient Education Patient Instructions Indication:Nonsmoker Start:13-Dec-2016 Instruction Type:Provider Instructions for Treatment obesity counseling Indication:Body mass index 35.0-35.9, adult Start:02-May-2016 Instruction Type:Provider Instructions for Treatment Patient Instructions Indication:Physical exam Start:02-May-2016 Instruction Type:Provider Instructions for Treatment How to access health informa tion online Indication:Pharyngitis, acute Start:03-Jul-2015 Instruction Type:Patient Education How to access health informa tion online - Detail Indication:Pharyngitis, acute Start:03-Jul-2015 Instruction Type:Patient Education Patient Instructions Indication:Pharyngitis, acute Start:03-Jul-2015 Instruction Type:Provider Instructions for Treatment How to access health informa tion online Indication:Annual physical exam Start:05-May-2015 Instruction Type:Patient Education How to access health informa tion online - Detail Indication:Annual physical exam Start:05-May-2015 Instruction Type:Patient Education Patient Instructions Indication:Annual physical exam Start:05-May-2015 Instruction Type:Provider Instructions for Treatment How to access health informa tion online Indication:Weight gain Start:26-May-2014 Instruction Type:Patient Education How to access health informa tion online - Detail Indication:Weight gain Start:26-May-2014 Instruction Type:Patient Education Patient Instructions Indication:Weight gain Start:26-May-2014 Instruction Type:Provider Instructions for Treatment Patient Instructions Indication:Annual physical exam Start:14-May-2014 Instruction Type:Provider Instructions for Treatment Patient Instructions Indication:Soft sore (chancroid) Start:04-Mar-2014 Instruction Type:Provider Instructions for Treatment Patient Instructions Indication:Family Planning Start:23-Jan-2014 Instruction Type:Provider Instructions for Treatment obesity counseling Indication:Weight gain Start:04-Jul-2013 Instruction Type:Provider Instructions for Treatment Patient Instructions Indication:Obesity Start:04-Jul-2013 Instruction Type:Provider Instructions for Treatment Patient Instructions Indication:Obesity Start:20-Jun-2013 Instruction Type:Provider Instructions for Treatment Patient Instructions Indication:Migraine with aura and without status migrainosus, not intractable Start:20-May-2013 Instruction Type:Provider Instructions for Treatment Name Dates Details How to access health informa tion online Indication:Nonsmoker Start:24-Dec-2018 Instruction Type:Patient Education How to access health informa tion online - Detail Indication:Nonsmoker Start:24-Dec-2018 Instruction Type:Patient Education Patient Instructions Indication:Nonsmoker Start:24-Dec-2018 Instruction Type:Provider Instructions for Treatment How to access health informa tion online Indication:Nonsmoker Start:17-Jul-2018 Instruction Type:Patient Education How to access health informa tion online - Detail Indication:Nonsmoker Start:17-Jul-2018 Instruction Type:Patient Education Patient Instructions Indication:Nonsmoker Start:17-Jul-2018 Instruction Type:Provider Instructions for Treatment How to access health informa tion online Indication:BMI 33.0-33.9,adult Start:16-Jun-2017 Instruction Type:Patient Education How to access health informa tion online - Detail Indication:BMI 33.0-33.9,adult Start:16-Jun-2017 Instruction Type:Patient Education Patient Instructions Indication:BMI 33.0-33.9,adult Start:16-Jun-2017 Instruction Type:Provider Instructions for Treatment How to access health informa tion online - Detail Indication:Nonsmoker Start:19-Apr-2017 Instruction Type:Patient Education Patient Instructions Indication:Nonsmoker Start:19-Apr-2017 Instruction Type:Provider Instructions for Treatment How to access health informa tion online - Detail Indication:Nonsmoker Start:13-Dec-2016 Instruction Type:Patient Education Patient Instructions Indication:Nonsmoker Start:13-Dec-2016 Instruction Type:Provider Instructions for Treatment obesity counseling Indication:Body mass index 35.0-35.9, adult Start:02-May-2016 Instruction Type:Provider Instructions for Treatment Patient Instructions Indication:Physical exam Start:02-May-2016 Instruction Type:Provider Instructions for Treatment How to access health informa tion online Indication:Pharyngitis, acute Start:03-Jul-2015 Instruction Type:Patient Education How to access health informa tion online - Detail Indication:Pharyngitis, acute Start:03-Jul-2015 Instruction Type:Patient Education Patient Instructions Indication:Pharyngitis, acute Start:03-Jul-2015 Instruction Type:Provider Instructions for Treatment How to access health informa tion online Indication:Annual physical exam Start:05-May-2015 Instruction Type:Patient Education How to access health informa tion online - Detail Indication:Annual physical exam Start:05-May-2015 Instruction Type:Patient Education Patient Instructions Indication:Annual physical exam Start:05-May-2015 Instruction Type:Provider Instructions for Treatment How to access health informa tion online Indication:Weight gain Start:26-May-2014 Instruction Type:Patient Education How to access health informa tion online - Detail Indication:Weight gain Start:26-May-2014 Instruction Type:Patient Education Patient Instructions Indication:Weight gain Start:26-May-2014 Instruction Type:Provider Instructions for Treatment Patient Instructions Indication:Annual physical exam Start:14-May-2014 Instruction Type:Provider Instructions for Treatment Patient Instructions Indication:Soft sore (chancroid) Start:04-Mar-2014 Instruction Type:Provider Instructions for Treatment Patient Instructions Indication:Family Planning Start:23-Jan-2014 Instruction Type:Provider Instructions for Treatment obesity counseling Indication:Weight gain Start:04-Jul-2013 Instruction Type:Provider Instructions for Treatment Patient Instructions Indication:Obesity Start:04-Jul-2013 Instruction Type:Provider Instructions for Treatment Patient Instructions Indication:Obesity Start:20-Jun-2013 Instruction Type:Provider Instructions for Treatment Patient Instructions Indication:Migraine with aura and without status migrainosus, not intractable Start:20-May-2013 Instruction Type:Provider Instructions for Treatment Name Dates Details How to access health informa tion online Indication:BMI 34.0-34.9,adult Start:21-Feb-2019 Instruction Type:Patient Education How to access health informa tion online - Detail Indication:BMI 34.0-34.9,adult Start:21-Feb-2019 Instruction Type:Patient Education Patient Instructions Indication:Diarrhea Start:21-Feb-2019 Instruction Type:Provider Instructions for Treatment How to access health informa tion online Indication:Nonsmoker Start:24-Dec-2018 Instruction Type:Patient Education How to access health informa tion online - Detail Indication:Nonsmoker Start:24-Dec-2018 Instruction Type:Patient Education Patient Instructions Indication:Nonsmoker Start:24-Dec-2018 Instruction Type:Provider Instructions for Treatment How to access health informa tion online Indication:Nonsmoker Start:17-Jul-2018 Instruction Type:Patient Education How to access health informa tion online - Detail Indication:Nonsmoker Start:17-Jul-2018 Instruction Type:Patient Education Patient Instructions Indication:Nonsmoker Start:17-Jul-2018 Instruction Type:Provider Instructions for Treatment How to access health informa tion online Indication:BMI 33.0-33.9,adult Start:16-Jun-2017 Instruction Type:Patient Education How to access health informa tion online - Detail Indication:BMI 33.0-33.9,adult Start:16-Jun-2017 Instruction Type:Patient Education Patient Instructions Indication:BMI 33.0-33.9,adult Start:16-Jun-2017 Instruction Type:Provider Instructions for Treatment How to access health informa tion online - Detail Indication:Nonsmoker Start:19-Apr-2017 Instruction Type:Patient Education Patient Instructions Indication:Nonsmoker Start:19-Apr-2017 Instruction Type:Provider Instructions for Treatment How to access health informa tion online - Detail Indication:Nonsmoker Start:13-Dec-2016 Instruction Type:Patient Education Patient Instructions Indication:Nonsmoker Start:13-Dec-2016 Instruction Type:Provider Instructions for Treatment obesity counseling Indication:Body mass index 35.0-35.9, adult Start:02-May-2016 Instruction Type:Provider Instructions for Treatment Patient Instructions Indication:Physical exam Start:02-May-2016 Instruction Type:Provider Instructions for Treatment How to access health informa tion online Indication:Pharyngitis, acute Start:03-Jul-2015 Instruction Type:Patient Education How to access health informa tion online - Detail Indication:Pharyngitis, acute Start:03-Jul-2015 Instruction Type:Patient Education Patient Instructions Indication:Pharyngitis, acute Start:03-Jul-2015 Instruction Type:Provider Instructions for Treatment How to access health informa tion online Indication:Annual physical exam Start:05-May-2015 Instruction Type:Patient Education How to access health informa tion online - Detail Indication:Annual physical exam Start:05-May-2015 Instruction Type:Patient Education Patient Instructions Indication:Annual physical exam Start:05-May-2015 Instruction Type:Provider Instructions for Treatment How to access health informa tion online Indication:Weight gain Start:26-May-2014 Instruction Type:Patient Education How to access health informa tion online - Detail Indication:Weight gain Start:26-May-2014 Instruction Type:Patient Education Patient Instructions Indication:Weight gain Start:26-May-2014 Instruction Type:Provider Instructions for Treatment Patient Instructions Indication:Annual physical exam Start:14-May-2014 Instruction Type:Provider Instructions for Treatment Patient Instructions Indication:Soft sore (chancroid) Start:04-Mar-2014 Instruction Type:Provider Instructions for Treatment Patient Instructions Indication:Family Planning Start:23-Jan-2014 Instruction Type:Provider Instructions for Treatment obesity counseling Indication:Weight gain Start:04-Jul-2013 Instruction Type:Provider Instructions for Treatment Patient Instructions Indication:Obesity Start:04-Jul-2013 Instruction Type:Provider Instructions for Treatment Patient Instructions Indication:Obesity Start:20-Jun-2013 Instruction Type:Provider Instructions for Treatment Patient Instructions Indication:Migraine with aura and without status migrainosus, not intractable Start:20-May-2013 Instruction Type:Provider Instructions for Treatment Name Dates Details How to access health informa tion online Indication:Nonsmoker Start:02-May-2019 Instruction Type:Patient Education How to access health informa tion online - Detail Indication:Nonsmoker Start:02-May-2019 Instruction Type:Patient Education Patient Instructions Indication:Nonsmoker Start:02-May-2019 Instruction Type:Provider Instructions for Treatment How to access health informa tion online Indication:BMI 34.0-34.9,adult Start:21-Feb-2019 Instruction Type:Patient Education How to access health informa tion online - Detail Indication:BMI 34.0-34.9,adult Start:21-Feb-2019 Instruction Type:Patient Education Patient Instructions Indication:Diarrhea Start:21-Feb-2019 Instruction Type:Provider Instructions for Treatment How to access health informa tion online Indication:Nonsmoker Start:24-Dec-2018 Instruction Type:Patient Education How to access health informa tion online - Detail Indication:Nonsmoker Start:24-Dec-2018 Instruction Type:Patient Education Patient Instructions Indication:Nonsmoker Start:24-Dec-2018 Instruction Type:Provider Instructions for Treatment How to access health informa tion online Indication:Nonsmoker Start:17-Jul-2018 Instruction Type:Patient Education How to access health informa tion online - Detail Indication:Nonsmoker Start:17-Jul-2018 Instruction Type:Patient Education Patient Instructions Indication:Nonsmoker Start:17-Jul-2018 Instruction Type:Provider Instructions for Treatment How to access health informa tion online Indication:BMI 33.0-33.9,adult Start:16-Jun-2017 Instruction Type:Patient Education How to access health informa tion online - Detail Indication:BMI 33.0-33.9,adult Start:16-Jun-2017 Instruction Type:Patient Education Patient Instructions Indication:BMI 33.0-33.9,adult Start:16-Jun-2017 Instruction Type:Provider Instructions for Treatment How to access health informa tion online - Detail Indication:Nonsmoker Start:19-Apr-2017 Instruction Type:Patient Education Patient Instructions Indication:Nonsmoker Start:19-Apr-2017 Instruction Type:Provider Instructions for Treatment How to access health informa tion online - Detail Indication:Nonsmoker Start:13-Dec-2016 Instruction Type:Patient Education Patient Instructions Indication:Nonsmoker Start:13-Dec-2016 Instruction Type:Provider Instructions for Treatment obesity counseling Indication:Body mass index 35.0-35.9, adult Start:02-May-2016 Instruction Type:Provider Instructions for Treatment Patient Instructions Indication:Physical exam Start:02-May-2016 Instruction Type:Provider Instructions for Treatment How to access health informa tion online Indication:Pharyngitis, acute Start:03-Jul-2015 Instruction Type:Patient Education How to access health informa tion online - Detail Indication:Pharyngitis, acute Start:03-Jul-2015 Instruction Type:Patient Education Patient Instructions Indication:Pharyngitis, acute Start:03-Jul-2015 Instruction Type:Provider Instructions for Treatment How to access health informa tion online Indication:Annual physical exam Start:05-May-2015 Instruction Type:Patient Education How to access health informa tion online - Detail Indication:Annual physical exam Start:05-May-2015 Instruction Type:Patient Education Patient Instructions Indication:Annual physical exam Start:05-May-2015 Instruction Type:Provider Instructions for Treatment How to access health informa tion online Indication:Weight gain Start:26-May-2014 Instruction Type:Patient Education How to access health informa tion online - Detail Indication:Weight gain Start:26-May-2014 Instruction Type:Patient Education Patient Instructions Indication:Weight gain Start:26-May-2014 Instruction Type:Provider Instructions for Treatment Patient Instructions Indication:Annual physical exam Start:14-May-2014 Instruction Type:Provider Instructions for Treatment Patient Instructions Indication:Soft sore (chancroid) Start:04-Mar-2014 Instruction Type:Provider Instructions for Treatment Patient Instructions Indication:Family Planning Start:23-Jan-2014 Instruction Type:Provider Instructions for Treatment obesity counseling Indication:Weight gain Start:04-Jul-2013 Instruction Type:Provider Instructions for Treatment Patient Instructions Indication:Obesity Start:04-Jul-2013 Instruction Type:Provider Instructions for Treatment Patient Instructions Indication:Obesity Start:20-Jun-2013 Instruction Type:Provider Instructions for Treatment Patient Instructions Indication:Migraine with aura and without status migrainosus, not intractable Start:20-May-2013 Instruction Type:Provider Instructions for Treatment Name Dates Details How to access health informa tion online Indication:Nonsmoker Start:30-Apr-2020 Instruction Type:Patient Education How to access health informa tion online - Detail Indication:Nonsmoker Start:30-Apr-2020 Instruction Type:Patient Education Patient Instructions Indication:Nonsmoker Start:30-Apr-2020 Instruction Type:Provider Instructions for Treatment How to access health informa tion online Indication:Nonsmoker Start:27-Dec-2019 Instruction Type:Patient Education How to access health informa tion online - Detail Indication:Nonsmoker Start:27-Dec-2019 Instruction Type:Patient Education Patient Instructions Indication:Nonsmoker Start:27-Dec-2019 Instruction Type:Provider Instructions for Treatment How to access health informa tion online Indication:Nonsmoker Start:24-Dec-2019 Instruction Type:Patient Education How to access health informa tion online - Detail Indication:Nonsmoker Start:24-Dec-2019 Instruction Type:Patient Education Patient Instructions Indication:Nonsmoker Start:24-Dec-2019 Instruction Type:Provider Instructions for Treatment How to access health informa tion online Indication:Nonsmoker Start:02-May-2019 Instruction Type:Patient Education How to access health informa tion online - Detail Indication:Nonsmoker Start:02-May-2019 Instruction Type:Patient Education Patient Instructions Indication:Nonsmoker Start:02-May-2019 Instruction Type:Provider Instructions for Treatment How to access health informa tion online Indication:BMI 34.0-34.9,adult Start:21-Feb-2019 Instruction Type:Patient Education How to access health informa tion online - Detail Indication:BMI 34.0-34.9,adult Start:21-Feb-2019 Instruction Type:Patient Education Patient Instructions Indication:Diarrhea Start:21-Feb-2019 Instruction Type:Provider Instructions for Treatment How to access health informa tion online Indication:Nonsmoker Start:24-Dec-2018 Instruction Type:Patient Education How to access health informa tion online - Detail Indication:Nonsmoker Start:24-Dec-2018 Instruction Type:Patient Education Patient Instructions Indication:Nonsmoker Start:24-Dec-2018 Instruction Type:Provider Instructions for Treatment How to access health informa tion online Indication:Nonsmoker Start:17-Jul-2018 Instruction Type:Patient Education How to access health informa tion online - Detail Indication:Nonsmoker Start:17-Jul-2018 Instruction Type:Patient Education Patient Instructions Indication:Nonsmoker Start:17-Jul-2018 Instruction Type:Provider Instructions for Treatment How to access health informa tion online Indication:BMI 33.0-33.9,adult Start:16-Jun-2017 Instruction Type:Patient Education How to access health informa tion online - Detail Indication:BMI 33.0-33.9,adult Start:16-Jun-2017 Instruction Type:Patient Education Patient Instructions Indication:BMI 33.0-33.9,adult Start:16-Jun-2017 Instruction Type:Provider Instructions for Treatment How to access health informa tion online - Detail Indication:Nonsmoker Start:19-Apr-2017 Instruction Type:Patient Education Patient Instructions Indication:Nonsmoker Start:19-Apr-2017 Instruction Type:Provider Instructions for Treatment How to access health informa tion online - Detail Indication:Nonsmoker Start:13-Dec-2016 Instruction Type:Patient Education Patient Instructions Indication:Nonsmoker Start:13-Dec-2016 Instruction Type:Provider Instructions for Treatment obesity counseling Indication:Body mass index 35.0-35.9, adult Start:02-May-2016 Instruction Type:Provider Instructions for Treatment Patient Instructions Indication:Physical exam Start:02-May-2016 Instruction Type:Provider Instructions for Treatment How to access health informa tion online Indication:Pharyngitis, acute Start:03-Jul-2015 Instruction Type:Patient Education How to access health informa tion online - Detail Indication:Pharyngitis, acute Start:03-Jul-2015 Instruction Type:Patient Education Patient Instructions Indication:Pharyngitis, acute Start:03-Jul-2015 Instruction Type:Provider Instructions for Treatment How to access health informa tion online Indication:Annual physical exam Start:05-May-2015 Instruction Type:Patient Education How to access health informa tion online - Detail Indication:Annual physical exam Start:05-May-2015 Instruction Type:Patient Education Patient Instructions Indication:Annual physical exam Start:05-May-2015 Instruction Type:Provider Instructions for Treatment How to access health informa tion online Indication:Weight gain Start:26-May-2014 Instruction Type:Patient Education How to access health informa tion online - Detail Indication:Weight gain Start:26-May-2014 Instruction Type:Patient Education Patient Instructions Indication:Weight gain Start:26-May-2014 Instruction Type:Provider Instructions for Treatment Patient Instructions Indication:Annual physical exam Start:14-May-2014 Instruction Type:Provider Instructions for Treatment Patient Instructions Indication:Soft sore (chancroid) Start:04-Mar-2014 Instruction Type:Provider Instructions for Treatment Patient Instructions Indication:Family Planning Start:23-Jan-2014 Instruction Type:Provider Instructions for Treatment obesity counseling Indication:Weight gain Start:04-Jul-2013 Instruction Type:Provider Instructions for Treatment Patient Instructions Indication:Obesity Start:04-Jul-2013 Instruction Type:Provider Instructions for Treatment Patient Instructions Indication:Obesity Start:20-Jun-2013 Instruction Type:Provider Instructions for Treatment Patient Instructions Indication:Migraine with aura and without status migrainosus, not intractable Start:20-May-2013 Instruction Type:Provider Instructions for Treatment Name Dates Details Patient Instructions Indication:Nonsmoker Start:11-Sep-2020 Instruction Type:Provider Instructions for Treatment How to Access Health Informa tion Online using Patient Portal and [employer]rd [employer] Apps Indication:Nonsmoker Start:11-Sep-2020 Instruction Type:Patient Education Patient Instructions Indication:BMI 38.0-38.9,adult Start:07-Sep-2020 Instruction Type:Provider Instructions for Treatment How to Access Health Informa tion Online using Patient Portal and [employer]rd [employer] Apps Indication:BMI 38.0-38.9,adult Start:07-Sep-2020 Instruction Type:Patient Education How to access health informa tion online Indication:Nonsmoker Start:30-Apr-2020 Instruction Type:Patient Education How to access health informa tion online - Detail Indication:Nonsmoker Start:30-Apr-2020 Instruction Type:Patient Education Patient Instructions Indication:Nonsmoker Start:30-Apr-2020 Instruction Type:Provider Instructions for Treatment How to access health informa tion online Indication:Nonsmoker Start:27-Dec-2019 Instruction Type:Patient Education How to access health informa tion online - Detail Indication:Nonsmoker Start:27-Dec-2019 Instruction Type:Patient Education Patient Instructions Indication:Nonsmoker Start:27-Dec-2019 Instruction Type:Provider Instructions for Treatment How to access health informa tion online Indication:Nonsmoker Start:24-Dec-2019 Instruction Type:Patient Education How to access health informa tion online - Detail Indication:Nonsmoker Start:24-Dec-2019 Instruction Type:Patient Education Patient Instructions Indication:Nonsmoker Start:24-Dec-2019 Instruction Type:Provider Instructions for Treatment How to access health informa tion online Indication:Nonsmoker Start:02-May-2019 Instruction Type:Patient Education How to access health informa tion online - Detail Indication:Nonsmoker Start:02-May-2019 Instruction Type:Patient Education Patient Instructions Indication:Nonsmoker Start:02-May-2019 Instruction Type:Provider Instructions for Treatment How to access health informa tion online Indication:BMI 34.0-34.9,adult Start:21-Feb-2019 Instruction Type:Patient Education How to access health informa tion online - Detail Indication:BMI 34.0-34.9,adult Start:21-Feb-2019 Instruction Type:Patient Education Patient Instructions Indication:Diarrhea Start:21-Feb-2019 Instruction Type:Provider Instructions for Treatment How to access health informa tion online Indication:Nonsmoker Start:24-Dec-2018 Instruction Type:Patient Education How to access health informa tion online - Detail Indication:Nonsmoker Start:24-Dec-2018 Instruction Type:Patient Education Patient Instructions Indication:Nonsmoker Start:24-Dec-2018 Instruction Type:Provider Instructions for Treatment How to access health informa tion online Indication:Nonsmoker Start:17-Jul-2018 Instruction Type:Patient Education How to access health informa tion online - Detail Indication:Nonsmoker Start:17-Jul-2018 Instruction Type:Patient Education Patient Instructions Indication:Nonsmoker Start:17-Jul-2018 Instruction Type:Provider Instructions for Treatment How to access health informa tion online Indication:BMI 33.0-33.9,adult Start:16-Jun-2017 Instruction Type:Patient Education How to access health informa tion online - Detail Indication:BMI 33.0-33.9,adult Start:16-Jun-2017 Instruction Type:Patient Education Patient Instructions Indication:BMI 33.0-33.9,adult Start:16-Jun-2017 Instruction Type:Provider Instructions for Treatment How to access health informa tion online - Detail Indication:Nonsmoker Start:19-Apr-2017 Instruction Type:Patient Education Patient Instructions Indication:Nonsmoker Start:19-Apr-2017 Instruction Type:Provider Instructions for Treatment How to access health informa tion online - Detail Indication:Nonsmoker Start:13-Dec-2016 Instruction Type:Patient Education Patient Instructions Indication:Nonsmoker Start:13-Dec-2016 Instruction Type:Provider Instructions for Treatment obesity counseling Indication:Body mass index 35.0-35.9, adult Start:02-May-2016 Instruction Type:Provider Instructions for Treatment Patient Instructions Indication:Physical exam Start:02-May-2016 Instruction Type:Provider Instructions for Treatment How to access health informa tion online Indication:Pharyngitis, acute Start:03-Jul-2015 Instruction Type:Patient Education How to access health informa tion online - Detail Indication:Pharyngitis, acute Start:03-Jul-2015 Instruction Type:Patient Education Patient Instructions Indication:Pharyngitis, acute Start:03-Jul-2015 Instruction Type:Provider Instructions for Treatment How to access health informa tion online Indication:Annual physical exam Start:05-May-2015 Instruction Type:Patient Education How to access health informa tion online - Detail Indication:Annual physical exam Start:05-May-2015 Instruction Type:Patient Education Patient Instructions Indication:Annual physical exam Start:05-May-2015 Instruction Type:Provider Instructions for Treatment How to access health informa tion online Indication:Weight gain Start:26-May-2014 Instruction Type:Patient Education How to access health informa tion online - Detail Indication:Weight gain Start:26-May-2014 Instruction Type:Patient Education Patient Instructions Indication:Weight gain Start:26-May-2014 Instruction Type:Provider Instructions for Treatment Patient Instructions Indication:Annual physical exam Start:14-May-2014 Instruction Type:Provider Instructions for Treatment Patient Instructions Indication:Soft sore (chancroid) Start:04-Mar-2014 Instruction Type:Provider Instructions for Treatment Patient Instructions Indication:Family Planning Start:23-Jan-2014 Instruction Type:Provider Instructions for Treatment obesity counseling Indication:Weight gain Start:04-Jul-2013 Instruction Type:Provider Instructions for Treatment Patient Instructions Indication:Obesity Start:04-Jul-2013 Instruction Type:Provider Instructions for Treatment Patient Instructions Indication:Obesity Start:20-Jun-2013 Instruction Type:Provider Instructions for Treatment Patient Instructions Indication:Migraine with aura and without status migrainosus, not intractable Start:20-May-2013 Instruction Type:Provider Instructions for Treatment Name Dates Details How to access health informa tion online Indication:Nonsmoker Start:24-Dec-2018 Instruction Type:Patient Education How to access health informa tion online - Detail Indication:Nonsmoker Start:24-Dec-2018 Instruction Type:Patient Education Patient Instructions Indication:Nonsmoker Start:24-Dec-2018 Instruction Type:Provider Instructions for Treatment How to access health informa tion online Indication:Nonsmoker Start:17-Jul-2018 Instruction Type:Patient Education How to access health informa tion online - Detail Indication:Nonsmoker Start:17-Jul-2018 Instruction Type:Patient Education Patient Instructions Indication:Nonsmoker Start:17-Jul-2018 Instruction Type:Provider Instructions for Treatment How to access health informa tion online Indication:BMI 33.0-33.9,adult Start:16-Jun-2017 Instruction Type:Patient Education How to access health informa tion online - Detail Indication:BMI 33.0-33.9,adult Start:16-Jun-2017 Instruction Type:Patient Education Patient Instructions Indication:BMI 33.0-33.9,adult Start:16-Jun-2017 Instruction Type:Provider Instructions for Treatment How to access health informa tion online - Detail Indication:Nonsmoker Start:19-Apr-2017 Instruction Type:Patient Education Patient Instructions Indication:Nonsmoker Start:19-Apr-2017 Instruction Type:Provider Instructions for Treatment How to access health informa tion online - Detail Indication:Nonsmoker Start:13-Dec-2016 Instruction Type:Patient Education Patient Instructions Indication:Nonsmoker Start:13-Dec-2016 Instruction Type:Provider Instructions for Treatment obesity counseling Indication:Body mass index 35.0-35.9, adult Start:02-May-2016 Instruction Type:Provider Instructions for Treatment Patient Instructions Indication:Physical exam Start:02-May-2016 Instruction Type:Provider Instructions for Treatment How to access health informa tion online Indication:Pharyngitis, acute Start:03-Jul-2015 Instruction Type:Patient Education How to access health informa tion online - Detail Indication:Pharyngitis, acute Start:03-Jul-2015 Instruction Type:Patient Education Patient Instructions Indication:Pharyngitis, acute Start:03-Jul-2015 Instruction Type:Provider Instructions for Treatment How to access health informa tion online Indication:Annual physical exam Start:05-May-2015 Instruction Type:Patient Education How to access health informa tion online - Detail Indication:Annual physical exam Start:05-May-2015 Instruction Type:Patient Education Patient Instructions Indication:Annual physical exam Start:05-May-2015 Instruction Type:Provider Instructions for Treatment How to access health informa tion online Indication:Weight gain Start:26-May-2014 Instruction Type:Patient Education How to access health informa tion online - Detail Indication:Weight gain Start:26-May-2014 Instruction Type:Patient Education Patient Instructions Indication:Weight gain Start:26-May-2014 Instruction Type:Provider Instructions for Treatment Patient Instructions Indication:Annual physical exam Start:14-May-2014 Instruction Type:Provider Instructions for Treatment Patient Instructions Indication:Soft sore (chancroid) Start:04-Mar-2014 Instruction Type:Provider Instructions for Treatment Patient Instructions Indication:Family Planning Start:23-Jan-2014 Instruction Type:Provider Instructions for Treatment obesity counseling Indication:Weight gain Start:04-Jul-2013 Instruction Type:Provider Instructions for Treatment Patient Instructions Indication:Obesity Start:04-Jul-2013 Instruction Type:Provider Instructions for Treatment Patient Instructions Indication:Obesity Start:20-Jun-2013 Instruction Type:Provider Instructions for Treatment Patient Instructions Indication:Migraine with aura and without status migrainosus, not intractable Start:20-May-2013 Instruction Type:Provider Instructions for Treatment Name Dates Details How to access health informa tion online Indication:Nonsmoker Start:24-Dec-2018 Instruction Type:Patient Education How to access health informa tion online - Detail Indication:Nonsmoker Start:24-Dec-2018 Instruction Type:Patient Education Patient Instructions Indication:Nonsmoker Start:24-Dec-2018 Instruction Type:Provider Instructions for Treatment How to access health informa tion online Indication:Nonsmoker Start:17-Jul-2018 Instruction Type:Patient Education How to access health informa tion online - Detail Indication:Nonsmoker Start:17-Jul-2018 Instruction Type:Patient Education Patient Instructions Indication:Nonsmoker Start:17-Jul-2018 Instruction Type:Provider Instructions for Treatment How to access health informa tion online Indication:BMI 33.0-33.9,adult Start:16-Jun-2017 Instruction Type:Patient Education How to access health informa tion online - Detail Indication:BMI 33.0-33.9,adult Start:16-Jun-2017 Instruction Type:Patient Education Patient Instructions Indication:BMI 33.0-33.9,adult Start:16-Jun-2017 Instruction Type:Provider Instructions for Treatment How to access health informa tion online - Detail Indication:Nonsmoker Start:19-Apr-2017 Instruction Type:Patient Education Patient Instructions Indication:Nonsmoker Start:19-Apr-2017 Instruction Type:Provider Instructions for Treatment How to access health informa tion online - Detail Indication:Nonsmoker Start:13-Dec-2016 Instruction Type:Patient Education Patient Instructions Indication:Nonsmoker Start:13-Dec-2016 Instruction Type:Provider Instructions for Treatment obesity counseling Indication:Body mass index 35.0-35.9, adult Start:02-May-2016 Instruction Type:Provider Instructions for Treatment Patient Instructions Indication:Physical exam Start:02-May-2016 Instruction Type:Provider Instructions for Treatment How to access health informa tion online Indication:Pharyngitis, acute Start:03-Jul-2015 Instruction Type:Patient Education How to access health informa tion online - Detail Indication:Pharyngitis, acute Start:03-Jul-2015 Instruction Type:Patient Education Patient Instructions Indication:Pharyngitis, acute Start:03-Jul-2015 Instruction Type:Provider Instructions for Treatment How to access health informa tion online Indication:Annual physical exam Start:05-May-2015 Instruction Type:Patient Education How to access health informa tion online - Detail Indication:Annual physical exam Start:05-May-2015 Instruction Type:Patient Education Patient Instructions Indication:Annual physical exam Start:05-May-2015 Instruction Type:Provider Instructions for Treatment How to access health informa tion online Indication:Weight gain Start:26-May-2014 Instruction Type:Patient Education How to access health informa tion online - Detail Indication:Weight gain Start:26-May-2014 Instruction Type:Patient Education Patient Instructions Indication:Weight gain Start:26-May-2014 Instruction Type:Provider Instructions for Treatment Patient Instructions Indication:Annual physical exam Start:14-May-2014 Instruction Type:Provider Instructions for Treatment Patient Instructions Indication:Soft sore (chancroid) Start:04-Mar-2014 Instruction Type:Provider Instructions for Treatment Patient Instructions Indication:Family Planning Start:23-Jan-2014 Instruction Type:Provider Instructions for Treatment obesity counseling Indication:Weight gain Start:04-Jul-2013 Instruction Type:Provider Instructions for Treatment Patient Instructions Indication:Obesity Start:04-Jul-2013 Instruction Type:Provider Instructions for Treatment Patient Instructions Indication:Obesity Start:20-Jun-2013 Instruction Type:Provider Instructions for Treatment Patient Instructions Indication:Migraine with aura and without status migrainosus, not intractable Start:20-May-2013 Instruction Type:Provider Instructions for Treatment Name Dates Details How to access health informa tion online Indication:BMI 34.0-34.9,adult Start:21-Feb-2019 Instruction Type:Patient Education How to access health informa tion online - Detail Indication:BMI 34.0-34.9,adult Start:21-Feb-2019 Instruction Type:Patient Education Patient Instructions Indication:Diarrhea Start:21-Feb-2019 Instruction Type:Provider Instructions for Treatment How to access health informa tion online Indication:Nonsmoker Start:24-Dec-2018 Instruction Type:Patient Education How to access health informa tion online - Detail Indication:Nonsmoker Start:24-Dec-2018 Instruction Type:Patient Education Patient Instructions Indication:Nonsmoker Start:24-Dec-2018 Instruction Type:Provider Instructions for Treatment How to access health informa tion online Indication:Nonsmoker Start:17-Jul-2018 Instruction Type:Patient Education How to access health informa tion online - Detail Indication:Nonsmoker Start:17-Jul-2018 Instruction Type:Patient Education Patient Instructions Indication:Nonsmoker Start:17-Jul-2018 Instruction Type:Provider Instructions for Treatment How to access health informa tion online Indication:BMI 33.0-33.9,adult Start:16-Jun-2017 Instruction Type:Patient Education How to access health informa tion online - Detail Indication:BMI 33.0-33.9,adult Start:16-Jun-2017 Instruction Type:Patient Education Patient Instructions Indication:BMI 33.0-33.9,adult Start:16-Jun-2017 Instruction Type:Provider Instructions for Treatment How to access health informa tion online - Detail Indication:Nonsmoker Start:19-Apr-2017 Instruction Type:Patient Education Patient Instructions Indication:Nonsmoker Start:19-Apr-2017 Instruction Type:Provider Instructions for Treatment How to access health informa tion online - Detail Indication:Nonsmoker Start:13-Dec-2016 Instruction Type:Patient Education Patient Instructions Indication:Nonsmoker Start:13-Dec-2016 Instruction Type:Provider Instructions for Treatment obesity counseling Indication:Body mass index 35.0-35.9, adult Start:02-May-2016 Instruction Type:Provider Instructions for Treatment Patient Instructions Indication:Physical exam Start:02-May-2016 Instruction Type:Provider Instructions for Treatment How to access health informa tion online Indication:Pharyngitis, acute Start:03-Jul-2015 Instruction Type:Patient Education How to access health informa tion online - Detail Indication:Pharyngitis, acute Start:03-Jul-2015 Instruction Type:Patient Education Patient Instructions Indication:Pharyngitis, acute Start:03-Jul-2015 Instruction Type:Provider Instructions for Treatment How to access health informa tion online Indication:Annual physical exam Start:05-May-2015 Instruction Type:Patient Education How to access health informa tion online - Detail Indication:Annual physical exam Start:05-May-2015 Instruction Type:Patient Education Patient Instructions Indication:Annual physical exam Start:05-May-2015 Instruction Type:Provider Instructions for Treatment How to access health informa tion online Indication:Weight gain Start:26-May-2014 Instruction Type:Patient Education How to access health informa tion online - Detail Indication:Weight gain Start:26-May-2014 Instruction Type:Patient Education Patient Instructions Indication:Weight gain Start:26-May-2014 Instruction Type:Provider Instructions for Treatment Patient Instructions Indication:Annual physical exam Start:14-May-2014 Instruction Type:Provider Instructions for Treatment Patient Instructions Indication:Soft sore (chancroid) Start:04-Mar-2014 Instruction Type:Provider Instructions for Treatment Patient Instructions Indication:Family Planning Start:23-Jan-2014 Instruction Type:Provider Instructions for Treatment obesity counseling Indication:Weight gain Start:04-Jul-2013 Instruction Type:Provider Instructions for Treatment Patient Instructions Indication:Obesity Start:04-Jul-2013 Instruction Type:Provider Instructions for Treatment Patient Instructions Indication:Obesity Start:20-Jun-2013 Instruction Type:Provider Instructions for Treatment Patient Instructions Indication:Migraine with aura and without status migrainosus, not intractable Start:20-May-2013 Instruction Type:Provider Instructions for Treatment Advance Directives No Advanced Directives Records Found Name Dates Details Immunization Registry [place] - Effective on 06/16/2017. Expiration date unspecified Effective:16-Jun-2017 Name Dates Details Immunization Registry [place] - Effective on 06/16/2017. Expiration date unspecified Effective:16-Jun-2017 Name Dates Details Immunization Registry [place] - Effective on 06/16/2017. Expiration date unspecified Effective:16-Jun-2017 Name Dates Details Immunization Registry [place] - Effective on 06/16/2017. Expiration date unspecified Effective:16-Jun-2017 Name Dates Details Immunization Registry [place] - Effective on 06/16/2017. Expiration date unspecified Effective:16-Jun-2017 Name Dates Details Immunization Registry [place] - Effective on 06/16/2017. Expiration date unspecified Effective:16-Jun-2017 Name Dates Details Immunization Registry [place] - Effective on 06/16/2017. Expiration date unspecified Effective:16-Jun-2017 Name Dates Details Immunization Registry [place] - Effective on 06/16/2017. Expiration date unspecified Effective:16-Jun-2017 Name Dates Details Immunization Registry [place] - Effective on 06/16/2017. Expiration date unspecified Effective:16-Jun-2017 Name Dates Details Immunization Registry [place] - Effective on 06/16/2017. Expiration date unspecified Effective:16-Jun-2017 Name Dates Details Immunization Registry [place] - Effective on 06/16/2017. Expiration date unspecified Effective:16-Jun-2017 Name Dates Details Immunization Registry [place] - Effective on 06/16/2017. Expiration date unspecified Effective:16-Jun-2017 Advance Directive Response Recorded Date/ Time Living Will Yes June 15 12:15pm Power of Store Operations Associate Yes June 15, 2021 12:15pm Name Dates Details Immunization Registry [place] - Effective on 06/16/2017. Expiration date unspecified Effective:16-Jun-2017 Name Dates Details Immunization Registry [place] - Effective on 06/16/2017. Expiration date unspecified Effective:16-Jun-2017 Name Dates Details Immunization Registry [place] - Effective on 06/16/2017. Expiration date unspecified Effective:16-Jun-2017 Name Dates Details Immunization Registry [place] - Effective on 06/16/2017. Expiration date unspecified Effective:16-Jun-2017 Name Dates Details Immunization Registry [place] - Effective on 06/16/2017. Expiration date unspecified Effective:16-Jun-2017 Name Dates Details Immunization Registry [place] - Effective on 06/16/2017. Expiration date unspecified Effective:16-Jun-2017 Name Dates Details Immunization Registry [place] - Effective on 06/16/2017. Expiration date unspecified Effective:16-Jun-2017 Name Dates Details Immunization Registry [place] - Effective on 06/16/2017. Expiration date unspecified Effective:16-Jun-2017 Name Dates Details Immunization Registry [place] - Effective on 06/16/2017. Expiration date unspecified Effective:16-Jun-2017 Name Dates Details Immunization Registry [place] - Effective on 06/16/2017. Expiration date unspecified Effective:16-Jun-2017 Name Dates Details Immunization Registry [place] - Effective on 06/16/2017. Expiration date unspecified Effective:16-Jun-2017 Name Dates Details Immunization Registry [place] - Effective on 06/16/2017. Expiration date unspecified Effective:16-Jun-2017 Name Dates Details Immunization Registry [place] - Effective on 06/16/2017. Expiration date unspecified Effective:16-Jun-2017 Name Dates Details Immunization Registry [place] - Effective on 06/16/2017. Expiration date unspecified Effective:16-Jun-2017 Summary Purpose Family History Relationship Condition Age at Onset Recorded Date/T pricila Not Specified Diabetes mellitus Unknown Cardiac disease Unknown Kidney disorder Unknown Hypertension Unknown No Family History Records Found Chief Complaint and Reason for Visit Chief Complaint MIGRAINES/RX HERE Chief Complaint EMPLOYEE LABS Chief Complaint SCREENING Chief Complaint SCREEN Chief Complaint Admit Date SCREENING October 31, 2024 7:5 2am Chief Complaint Admit Date employee labs March 31, 2025 11 :12am Additional Source Comments <item> Privacy Markings (unrecogniz ed section and content) Section Author: Jennifer Kay PROHIBITION ON REDISCLOSURE OF CONFIDENTIAL INFORMATION This notice accompanies a disclosure of information concerning a client made to you with the consent of such client. INFORMATION SOURCE (unrecogn ized section and content) DATE CREATED AUTHOR 05/05/2021 [facility] DATE CREATED AUTHOR AUTHOR'S ORGANIZ ATION 12/16/2022 [facility] DATE CREATED AUTHOR AUTHOR'S ORGANIZ ATION 04/04/2025 [facility] Goals (unrecognized section and content) Goals may be documented in a n alternate sectionGoals may be documented in an alternate sectionGoals may be documented in an alternate sectionGoals may be documented in an alternate sectionGoals may be documented in an alternate sectionGoals may be documented in an alternate section Care Teams (unrecognized sec tion and content) Team Status: Active Member Role Status Dates Dr. Rachel Lo DO Family Provider Active Dr. Rachel Lo DO Primary Care Provider Active Team Status: Inactive Member Role Status Dates Dr. Rachel Lo DO Primary Care Pr ovider, Attending Provider, Referring Provider Active Team Status: Active Member Role Status Dates Dr. Rachel Lo DO Primary Care Provider Active Team Status: Inactive Member Role Status Dates Dr. Rachel Lo DO Primary Care Provider Active Start: October 31, 2024 End: October 31, 2024 Dr. Rachel Lo DO Attending Provider Active Start: October 31, 2024 End: October 31, 2024 Dr. Rachel Lo DO Referring Provider Active Start: October 31, 2024 End: October 31, 2024 Team Status: Active Member Role/Relationship Status Dates Dr. Rachel Lo DO Primary Care Provider Active Team Status: Active Member Role/Relationship Status Dates Dr. Rachel Lo DO Primary Care Provider Active Start: March 31, 2025 Health Risk Assessment Attending Provider Active Start: March 31, 2025 Health Risk Assessment Referring Provider Active Start: March 31, 2025 Team Status: Inactive Member Role/Relationship Status Dates Dr. Rachel Lo DO Primary Care Provider Active Start: March 31, 2025 End: March 31, 2025 Dr. Rachel Lo DO Attending Provider Active Start: March 31, 2025 End: March 31, 2025 Dr. Rachel Lo DO Referring Provider Active Start: March 31, 2025 End: March 31, 2025 FOR RECORDS PERTAINING TO PATIENTS WHO ARE OR HAVE BEEN ENROLLED IN A CHEMICAL DEPENDENCY/SUBSTANCEABUSE PROGRAM, SOME INFORMATION MAY BE OMITTED. This clinical summary was aggregated from multiple sources. Caution should be exercised in using it in the provision of clinical care. This summary normalizes information from multiple sources, and as a consequence, information in this document may materially change the coding, format and clinical context of patient data. In addition, data may be omitted in some cases. CLINICAL DECISIONS SHOULD BE BASED ON THE PRIMARY CLINICAL RECORDS. [facility]. provides no warranty or guarantee of the accuracy or completeness of information in this document.
--- NOTE | 2025-04-09 06:25 | CA.SCORE ---
Calcium Scoring Date of Study:: 04/08/25 Indications Indications: Hyperlipidemia/ family history Coronary Calcium Scoring: High-resolution Computed Tomographic imaging of the chest was performed on [04/08/2025], with particular attention paid to the coronary arteries. Images from the examination were analyzed for the presence and extent of coronary artery calcification , using coronary calcium quantification software. The patient tolerated the procedure well and there were no complications. The results of the coronary calcification analysis are provided below. Findings Coronary Artery Left Main (LM): 0 Left Anterior Descending (LAD): 0 Left Circumflex (LCX): 0 Right Coronary Artery (RCA): 0 Total Agatston Score: 0 Percentile Rankin Calcium Scoring Interpretation: Different methods to categorize the overall amount of coronary plaque. Overall amount CAC SIS Visual of coronary plaque P1 Mild -100 <2 1-2 vessels with mild amount of plaque P2 Moderate 101-300 3-4 1-2 vessels with moderate amount, 3 vessels with mild amount of plaque P3 Severe 301-999 5-7 3 vessels with moderate amount, 1 vessel with severe amount of plaque P4 Extensive >1000 >8 2-3 vessels with severe amount of plaque Conclusion: No atherosclerotic plaquing noted.
== END | disposition home or self-care (01) ==
LOC: CT 06:16
PROVIDERS: PCP Internal Medicine; Referring Provider Internal Medicine; Visit Provider Internal Medicine
DX: E78.5 Hyperlipidemia, unspecified (principal)
CPT/HCPCS: 75571; 76380

== ENCOUNTER → 2025-04-11 | Outpatient (CLI) | payer OTHER, SELFPAY ==
--- NOTE | 2025-04-11 06:22 | US_ITS ---
PROCEDURE: ABD LIMITED W/ ELASTOGRAPHY REASON FOR EXAM: ELEVATED LIVER ENZYMES COMPARISON: None. TECHNIQUE: Procedure Code: [id number] Modality: US Procedure: ABD LIMITED W/ ELASTOGRAPHY Right upper quadrant abdominal ultrasound. Audra ElastQ Imaging shear wave elastography for non-invasive assessment of liver tissue stiffness. Audra EPIQ Elite. FINDINGS: LIVER: Size: Unremarkable Length: 15.5 cm Echotexture: Diffusely echogenic suggesting fatty infiltration Contour: Normal Lesions: None identified Elastography: EQI Med: 9.8 kPa EQI Med Khurram: 1.78 m/s IQR/Med: 26 %* GALLBLADDER: No stones sludge wall thickening or tenderness. COMMON BILE DUCT: Normal measuring 3 mm . PANCREAS: Normal Visualized portions of the right kidney are unremarkable. No right upper quadrant ascites. US/ABD Limited w/ Elastography IMPRESSION: Moderate hepatic fibrosis. Diffuse fatty infiltration of the liver. Reference Values: SRU <1.37 m/s (5.7kPa): No to mild fibrosis 1.37 m/s - 2.2 m/s: Moderate to severe fibrosis >2.2 m/s (15kPa): Significant fibrosis / cirrhosis METAVIR Score F2 or higher: 1.34 m/s (5.7kPa) F3 or higher: 1.55 m/s (7.3kPa) F4: 1.80 m/s (10kPa) * If the IQR/Med is >30%, the variance in the measurements is a large and the a ccuracy of the measurement may be in question. Reading Location: [place]
--- OUTSIDE RECORDS SUMMARY | 2025-04-11 06:29 | XMS RPT_ITS | CCD ---
Author Organization [facility] Er ion Partnership [facility] Care Team Providers Care Care Management Coordinator Name Role Phone Rachel Lo Unavailable Uriah Cooney Unavailable Dank Houston Unavailable Leslie Rodriguez Unavailable Shireen Vega Unavailable Unavailable Messenger, Jenny Unavailable Unavailable Geoffreya, Kiesha Unavailable Milena Wilder Unavailable Unavailable Unavailable Unavailable Rachel Lo Unavailable Uriah Cooney Unavailable [facility] Unavailable Dank Houston Unavailable Leslie Rodriguez Unavailable [...] Uriah Cooney DPM Unavailable Aruna Liu Unavailable [facility] Unavailable Dr. Dank Houston Unavailable Dr. Leslie Rodriguez Unavailable [phone] [employer] FREELANCE OPERATOR, Laisha Unavailable Unavailable Dmitri RN, Jenny Unavailable Unavailable Isaac PRESENTATION TEAM MEMBER, Shiraz Unavailable Unavailable Melony, Lisette Unavailable Unavailable Meño, Milena Unavailable Unavailable Unavailable Unavailable Chandler PRESENTATION TEAM MEMBER, Cara Unavailable Unavailable Teresita DO, Rachel Unavailable Alicia, sohail Unavailable Unavailable Slarb PRESENTATION TEAM MEMBER, Yareli Unavailable Unavailable Aurora FREELANCE OPERATOR, Kayela Unavailable Unavailable Lisa James MA Unavailable Unavailable Teresita DO, Rachel Attending Unavailable Teresita DO, Rachel Referring Unavailable Teresita DO, Rachel Consulting Unavailable [place] PRESENTATION TEAM MEMBER, Steve Unavailable Unavailable Teresita ROQUE, Dr. Ramos Primary Care Provider [phone] Teresita ROQUE, Dr. Ramos Attending Provider [phone] Teresita ROQUE, Dr. Ramos Referring Provider [phone] Teresita ROQUE, Dr. Ramos Primary Care Provider [phone] Assessment, Health Risk Attending Provider Unava ilable Assessment, Health Risk Referring Provider Unava ilable Teresita ROQUE, Dr. Ramos Attending Provider [phone] Teresita ROQUE, Dr. Ramos Referring Provider [phone] Tono Andersen Attending Unavailable TeresitaRachel erwin Referring Unavailable Teresita, Rachel Primary Care Unavailable TeresitaRachel erwin Consulting Unavailable Assessment, Health Risk Attending Unavaila ble Assessment, Health Risk Referring Unavaila ble Teresita, Rachel Primary Care Unavailable Assessment, Health Risk Attending Unavaila ble Assessment, Health Risk Referring Unavaila ble Teresita, Rachel Primary Care Unavailable Teresita, Rachel Attending Unavailable Teresita, Rachel Referring Unavailable Teresita, Rachel Primary Care Unavailable Teresita, Rachel Attending Unavailable Teresita, Rachel Referring Unavailable Teresita, Rachel Primary Care Unavailable Teresita, Rachel Attending Unavailable Teresita, Rachel Referring Unavailable Teresita, Rachel Primary Care Unavailable Teresita, Rachel Attending Unavailable Teresita, Rachel Referring Unavailable Teresita, Rachel Primary Care Unavailable Allergies Allergy Classification Reported Allergen(s) Allergy [...] (300 MG/2ML) Inactive 21 day ethinyl estradiol 0.106690 mg/hr / etonogestrel 0.005 mg/hr vaginal system [...] Quantity: 1 {Ring} Refills: 12 Ordered: 15-Apr-2021 Laisha Chin CMA Start : 15-Apr-2021 Active Start: 04-30-2020 NuvaRing [...] solution (2 sources) Histamine-1 Receptor Inhibitor Start: 4 Olopatadine 0.1 % drops Active 1 NMA OPHTHALMIC TWICE A DAY January 05, 2024 12:00am allergies 24 hr propranolol hydrochloride 60 mg extended release oral capsule (3 sources) beta-Adrenergic Marlena Start: 4 take 1 capsule by mouth once daily [...] Inactive Comments: two Comment on above: two [id number] 200 actuat albuterol 0.09 mg/actuat metered dose [...] 25-Nov-2022 Inactive Comment on above: Discontinued by [facility] vendor. azithromycin 250 mg oral tablet (20 [...] A DAY as needed for cough 30 0 November 02, 2022 12:00am January 05, 2024 [...] {Tablet_ER_24HR} Refills: 0 Ordered: 24-May-2013 Debra Simms CNP Start : 24-May-2013 End : 03-Jun-2013 Inactive [...] 04-15-2021 take 1 tablet by dulce th twice daily Pepcid 40 MG Oral Tablet [...] 1 {Tablet} Refills: 1 Ordered: 11-Nov-2022 Emiliano GABRIEL Fionaluis daniel Start : 21-Oct-2021 End : 11-Nov-2022 Inactive [...] {gram(s)} Refills: 0 Ordered: 13-Jan-2014 Jenny Rizvi PRESENTATION TEAM MEMBER Start : 04-Jan-2012 End : 13-Jan-2014 Inactive [...] Start: 01-27-2023 take 1 capsule by mo ut once daily Adipex-P 37.5 mg oral capsule [...] Start: 11-25-2022 take 1 capsule by mo ut once daily Adipex-P 37.5 mg oral capsule [...] Quantity: 21 {Tablet} Refills: 0 Ordered: 02-Apr-2009 VeronicaDebra davis Start : 02-Apr-2009 End : 01-Jul-2009 Inactive [...] [Abnormal levels of other serum enzymes] Onset: 04-06-2025 Episodic Other lower respiratory disease (20 sources) [...] Test Name Value Interpretation Reference Range Facility Coronary Angiography CTon Coronary Angiography CT [facility] Imaging Services [address] [place] [address] 04/09/25 0625 MR#: [id number] Acct: [id number] Name: AFSHAN DON Rep #: [id number] : 1980 44 From: Tono Andersen MD PCP: Dr. Rachel Lo, DO Status:REG CLI Y Location: CT Calcium Scoring Date of Study:: 04/08/25 Indications Indications: Hyperlipidemia/ family history Coronary Calcium Scoring: High-resolution Computed Tomographic imaging of the chest was performed on [04/08/2025], with particular attention paid to the coronary arteries. Images from the examination were analyzed for the presence and extent of coronary artery calcification , using coronary calcium quantification software. The patient tolerated the procedure well and there were no complications. The results of the coronary calcification analysis are provided below. Findings Coronary Artery Left Main (LM): 0 Left Anterior Descending (LAD): 0 Left Circumflex (LCX): 0 Right Coronary Artery (RCA): 0 Total Agatston Score: 0 Percentile Rankin Calcium Scoring Interpretation: Different methods to categorize the overall amount of coronary plaque. Overall amount CAC SIS Visual of coronary plaque P1 Mild -100 <2 1-2 vessels with mild amount of plaque P2 Moderate 101-300 3-4 1-2 vessels with moderate amount, 3 vessels with mild amount of plaque P3 Severe 301-999 5-7 3 vessels with moderate amount, 1 vessel with severe amount of plaque P4 Extensive >1000 >8 2-3 vessels with severe amount of plaque Conclusion: No atherosclerotic plaquing noted. 04/09/25625 Date Tono Andersen MD Cosigner Signature (if applicable): Date CC: Dr. Tono Andersen MD; Dr. Rachel Lo DO Signed Normal [facility] Limited Chest CT Cardiac Onl yon 04-08-[address] Cardiac Only [facility] Imaging Services [address] [place], [place] [address] Limited Chest CT Cardiac Only MR#: [id number] Acct: [id number] Name: AFSHAN DON Rep #: [id number] : 1980 F 44 From: Cristiano Mckeon PCP: Dr. Rachel Lo DO Status: REG CLI Study: Limited Chest CT Cardiac Only Date of Exam: Exam# [id number] Ordering Dr: Rachel Lo DO PROCEDURE: LIMITED CHEST CT CARDIAC ONLY 04/08/2025 REASON FOR EXAM: HYPERLIPIDEMIA TECHNIQUE: CT performed for coronary artery calcification. One or more dose reduction techniques were used (e.g., Automated exposure control, adjustment of the mA and/or kV according to patient size, use of iterative reconstruction technique). RADIATION DOSE SUMMARY: CTDlvol: 24.38 mGy DLP: 438.83 mGycm COMPARISON: None. CT/Limited Chest CT Cardiac Only IMPRESSION: Limited imaging of the lungs demonstrates no acute process. No pleural effusion or pneumothorax is seen in visualized areas. No adenopathy is noted. The visualized upper abdomen demonstrates no significant abnormality. Reading Location: [place] [address] CC: Dr. Rachel Lo DO Extractor Filler: Signed Normal [facility] Absolute lymphocyte countOrd ered By: HEALTH ASSESSMENT on 03-31-2025 Lymphocytes Auto (Unsp spec) [#/Vol] 1.70 10*3/uL 0.83-4.51 [facility] Absolute neutrophil countOrd ered By: HEALTH ASSESSMENT on 03-31-2025 Neutrophils (Bld) [#/Vol] 4.2 10*3/uL 2.0-7.7 [facility] Absolute nucleated red blood cell countOrdered By: HEALTH ASSESSMENT on 03-31-2025 Nucleated RBC (Bld) [#/Vol] 0.00 10*3/uL 0-5 [facility] Anion gap in Serum or Plasma Ordered By: HEALTH ASSESSMENT on 03-31-2025 Anion gap [Moles/Vol] 11 mmol/L 5-15 [facility] BUN/creatinine ratioOrdered By: HEALTH ASSESSMENT on 03-31-2025 Urea nitrogen/Creatinine [Mass ratio] 19.0 mg/mg 10-20 [facility] Comment on above: Previous reported re sult: 18.4 RATIOEdited by: [employer] on 03/31/25:1235 AMENDED REPORT 03/31/25 1235 BUN/CRE previously reported as: 18.4 RATIO Bilirubin Test strip Ql (U)O rdered By: HEALTH ASSESSMENT on 03-31-2025 Bilirubin Ql (U) Negative Negative [facility] Bilirubin directOrdered By: HEALTH ASSESSMENT on 03-31-2025 Bilirubin.direct [Mass/Vol] 0.16 mg/dL 0.00-0.30 [facility] Comment on above: Previous reported re sult: 0.18 mg/dLEdited by: [employer] on 03/31/25:1235 AMENDED REPORT 03/31/25 1235 D BILI previously reported as: 0.18 mg/dL Bilirubin, totalOrdered By: HEALTH ASSESSMENT on 03-31-2025 Bilirubin [Mass/Vol] 0.46 mg/dL 0.00-1.30 [facility] Comment on above: Previous reported re sult: 0.41 mg/dLEdited by: [employer] on 03/31/25:1235 AMENDED REPORT 03/31/25 1235 T BILI previously reported as: 0.41 mg/dL CBC, Employeeon 03-31-2025 Absolute Lymph 1.70 X10 3/uL Normal 0.83-4.51 [facility] Comment on above: Performed By: #### L 400.0100, L500.2900, L100.0200 #### [facility] [address] [place], [place] [address]all [place], [address] Absolute Neut 4.2 X10 3/uL Normal 2.0-7.7 [facility] Comment on above: Performed By: #### L 400.0100, L500.2900, L100.0200 #### [facility] [address] [place], [address] Basophils/100 WBC (Bld) 0.5 % Normal 0-1 [facility] Comment on above: Performed By: #### L 400.0100, L500.2900, L100.0200 #### [facility] [address] [place] [place], [address] Eosinophils/100 WBC (Bld) 2.0 % Normal 0-5 [facility] Comment on above: Performed By: #### L 400.0100, L500.2900, L100.0200 #### [facility] [address] [place], [address] Erythrocyte distribution width (RBC) [Ratio] 12.0 % Normal 11.6-14.6 [facility] Comment on above: Performed By: #### L 400.0100, L500.2900, L100.0200 #### [facility] [address] [place], [address] Hematocrit (Bld) [Volume fraction] 38.6 % Normal 37-47 [facility] Comment on above: Performed By: #### L 400.0100, L500.2900, L100.0200 #### [facility] [address] [place], [address] Hemoglobin (Bld) [Mass/Vol] 13.0 g/dL Normal 12.0-15.0 [facility] Comment on above: Performed By: #### L 400.0100, L500.2900, L100.0200 #### [facility] [address] [place], [address] Lymphocytes/100 WBC (Bld) 26.0 % Normal 19-41 [facility] Comment on above: Performed By: #### L 400.0100, L500.2900, L100.0200 #### [facility] [address] [place], [address] MCH (RBC) [Entitic mass] 29.7 pg Normal 27.0-32.0 [facility] Comment on above: Performed By: #### L 400.0100, L500.2900, L100.0200 #### [facility] [address] [place], [address] MCHC (RBC) [Mass/Vol] 33.7 g/dL Normal 32-36 [facility] Comment on above: Performed By: #### L 400.0100, L500.2900, L100.0200 #### [facility] [address] [place], [address] MCV (RBC) [Entitic vol] 88.1 fL Normal 81-99 [facility] Comment on above: Performed By: #### L 400.0100, L500.2900, L100.0200 #### [facility] [address] [place], [address] Monocytes/100 WBC (Bld) 7.0 % Normal 0-10 [facility] Comment on above: Performed By: #### L 400.0100, L500.2900, L100.0200 #### [facility] [address] [place], [address] Neutrophils/100 WBC (Bld) 64.3 % Normal 47-70 [facility] Comment on above: Performed By: #### L 400.0100, L500.2900, L100.0200 #### [facility] [address] [place], [address] NRBC # 0.00 10 3/uL Normal 0-5 [facility] Comment on above: Performed By: #### L 400.0100, L500.2900, L100.0200 #### [facility] [address] [place], [address] Nucleated RBC (Bld) [#/Vol] 0 10*3/uL Normal 0-5 [facility] Comment on above: Performed By: #### L 400.0100, L500.2900, L100.0200 #### [facility] [address] [place], [address] Platelet mean volume (Bld) [Entitic vol] 10.3 fL Normal 6.2-12.0 [facility] Comment on above: Performed By: #### L 400.0100, L500.2900, L100.0200 #### [facility] [address] [place], [address] Platelets (Bld) [#/Vol] 289 10*3/uL Normal 150-450 [facility] Comment on above: Performed By: #### L 400.0100, L500.2900, L100.0200 #### [facility] [address] [place], [address] RBC (Bld) [#/Vol] 4.38 10*6/uL Normal 4.2-5.4 [facility] Comment on above: Performed By: #### L 400.0100, L500.2900, L100.0200 #### [facility] [address] [place], [address] RDW SD 38.7 fl Normal 35.1-43.9 [facility] Comment on above: Performed By: #### L 400.0100, L500.2900, L100.0200 #### [facility] [address] [place], [address] WBC (Bld) [#/Vol] 6.6 10*3/uL Normal 4.4-11.0 [facility] Comment on above: Performed By: #### L 400.0100, L500.2900, L100.0200 #### [facility] [address] [place], [address] Calculated very low density lipoprotein (VLDL) cholesterol measurementOrdered By: HEALTH ASSESSMENT on 03-31-2025 Calculated very low density lipoprotein (VLDL) cholesterol measurement 14 mg/dL 5-40 [facility] Carbon dioxide, total [Moles /volume] in Central venous bloodOrdered By: HEALTH ASSESSMENT on 03-31-2025 CO2 [Moles/Vol] 21.7 mmol/L 21.0-32.0 [facility] Comment on above: Previous reported re sult: 21.8 mmol/LEdited by: [employer] on 03/31/25:1235 AMENDED REPORT 03/31/25 1235 CO2 previously reported as: 21.8 mmol/L Chloride assayOrdered By: ALTH ASSESSMENT on 03-31-2025 Chloride [Moles/Vol] 106 mmol/L 98-108 [facility] Employee Profileon 5 LDH 179 U/L Normal 84-246 [facility] Comment on above: Performed By: #### L 400.0100, L500.2900, L100.0200 #### [facility] [address] [place], [address] Phosphate [Mass/Vol] 3.2 mg/dL Normal 2.7-4.5 [facility] Comment on above: Performed By: #### L 400.0100, L500.2900, L100.0200 #### [facility] [address] [place], [address] URIC 3.5 mg/dL Normal 2.6-6.0 [facility] Comment on above: Result Comment: The drugs N-Acetylcysteine and Metamizole may falsely depress this assay. Performed By: #### L 400.0100, L500.2900, L100.0200 #### [facility] [address] [place], [address] Erythrocyte distribution wid th ratioOrdered By: HEALTH ASSESSMENT on 03-31-2025 Erythrocyte distribution width (RBC) [Ratio] 12.0 % 11.6-14.6 [facility] Erythrocyte distribution wid th standard deviationOrdered By: HEALTH ASSESSMENT on 03-31-2025 Erythrocyte distribution width (RBC) [Ratio] 38.7 fl 35.1-43.9 [facility] Glomerular filtration rate ( GFR) estimation/1.73 sq m using serum, plasma, or whole bOrdered By: HEALTH ASSESSMENT on 03-31-2025 GFR/1.73 sq M.predicted among non-blacks MDRD (S/P/Bld) [Vol rate/Area] 110 mL/min/{1.73_m2} >60 [facility] Comment on above: mL/min/1.73m2 CKD-EP I Creatinine Equation (2020) Hematocrit Auto (Bld) [Volum e fraction]Ordered By: HEALTH ASSESSMENT on 03-31-2025 Hematocrit (Bld) [Volume fraction] 38.6 % 37-47 [facility] Hemoglobin measurementOrdere d By: HEALTH ASSESSMENT on 03-31-2025 Hemoglobin (Bld) [Mass/Vol] 13.0 g/dL 12.0-15.0 [facility] Ketones Test strip Ql (U)Ord ered By: HEALTH ASSESSMENT on 03-31-2025 Ketones Ql (U) Negative Negative [facility] LDL calc ser/plasOrdered By: HEALTH ASSESSMENT on 03-31-2025 Cholesterol in LDL [Mass/Vol] 132 mg/dL [facility] Comment on above: Nslfsddbxr=085-325 m g/dL & Higher Qkec=295 mg/dL or greaterFriedwald Equation for LDL-C Laboratory - Chemistry and C hemistry - challengeOrdered By: HEALTH ASSESSMENT on 03-31-2025 AST [Catalytic activity/Vol] 47 U/L High <32 [facility] Lactate dehydrogenase (LDH) measurementOrdered By: HEALTH ASSESSMENT on 03-31-2025 LDH [Catalytic activity/Vol] 179 U/L 84-246 [facility] MCV (mean corpuscular volume ) determinationOrdered By: HEALTH ASSESSMENT on 03-31-2025 MCV (RBC) [Entitic vol] 88.1 fL 81-99 [facility] Mean corpuscular hemoglobin (MCH) determinationOrdered By: HEALTH ASSESSMENT on 03-31-2025 MCH (RBC) [Entitic mass] 29.7 pg 27.0-32.0 [facility] Mean corpuscular hemoglobin concentration (MCHC) determinationOrdered By: HEALTH ASSESSMENT on 03-31-2025 MCHC (RBC) [Mass/Vol] 33.7 g/dL 32-36 [facility] Mean platelet volume determi nationOrdered By: HEALTH ASSESSMENT on 03-31-2025 Platelet mean volume (Bld) [Entitic vol] 10.3 fL 6.2-12.0 [facility] Neutrophil percentageOrdered By: HEALTH ASSESSMENT on 03-31-2025 Neutrophils/100 WBC (Bld) 64.3 % 47-70 [facility] Nitrite Test strip Ql (U)Ord ered By: HEALTH ASSESSMENT on 03-31-2025 Nitrite Ql (U) Negative Negative [facility] Nucleated red blood cell per centageOrdered By: HEALTH ASSESSMENT on 03-31-2025 Nucleated RBC/100 WBC (Bld) [Ratio] 0 % 0-5 [facility] Platelet countOrdered By: HE ALTH ASSESSMENT on 03-31-2025 Platelets (Bld) [#/Vol] 289 10*3/uL 150-450 [facility] Potassium measurement (mass/ volume)Ordered By: HEALTH ASSESSMENT on 03-31-2025 Potassium (Unsp spec) [Mass/Vol] 4.5 mmol/L 3.3-5.1 [facility] Protein Test strip Ql (U)Ord ered By: HEALTH ASSESSMENT on 03-31-2025 Protein Ql (U) 15 mg/dl High Negative [facility] RBC Auto (Bld) [#/Vol]Ordere d By: HEALTH ASSESSMENT on 03-31-2025 RBC (Bld) [#/Vol] 4.38 10*6/uL 4.2-5.4 [facility] Screening total cholesterol/ high density lipoprotein (HDL) cholesterol ratioOrdered By: HEALTH ASSESSMENT on 03-31-2025 Cholesterol.total/Chol esterol in HDL [Mass ratio] 4.04 {ratio} [facility] Serum creatinine measurement (mass/volume)Ordered By: HEALTH ASSESSMENT on 03-31-2025 Creatinine [Mass/Vol] 0.69 mg/dL Low 0.70-1.20 [facility] Comment on above: Previous reported re sult: 0.70 mg/dLEdited by: [employer] on 03/31/25:1235 AMENDED REPORT 03/31/25 1235 CREAT,SERUM previously reported as: 0.70 mg/dL Serum globulin measurementOr dered By: HEALTH ASSESSMENT on 03-31-2025 Globulin (S) [Mass/Vol] 2.8 g/dL 2.2-4.2 [facility] Comment on above: Previous reported re sult: 3.2 g/dLEdited by: [employer] on 03/31/25:1235 AMENDED REPORT 03/31/25 1235 GLOB previously reported as: 3.2 g/dL Serum glucose measurement (m ass/volume)Ordered By: HEALTH ASSESSMENT on 03-31-2025 Glucose [Mass/Vol] 84 mg/dL 70-99 [facility] Comment on above: Previous reported re sult: 92 mg/dLEdited by: JOSE M on 03/31/25:1235 AMENDED REPORT 03/31/25 1235 GLU previously reported as: 92 mg/dL Serum or plasma alanine petit otransferase (ALT) measurementOrdered By: HEALTH ASSESSMENT on 03-31-2025 ALT [Catalytic activity/Vol] 26 U/L <35 [facility] Comment on above: Previous reported re sult: 27 U/LEdited by: [employer] on 03/31/25:1235 AMENDED REPORT 03/31/25 1235 ALT previously reported as: 27 U/L Serum or plasma albumin wally urement (mass/volume)Ordered By: HEALTH ASSESSMENT on 03-31-2025 Albumin [Mass/Vol] 4.1 g/dL 3.5-5.0 [facility] Comment on above: Previous reported re sult: 4.0 g/dLEdited by: [employer] on 03/31/25:1235 AMENDED REPORT 03/31/25 1235 ALB previously reported as: 4.0 g/dL Serum or plasma albumin/glob ulin mass ratioOrdered By: HEALTH ASSESSMENT on 03-31-2025 Albumin/Globulin [Mass ratio] 1.5 {ratio} 0.9-2.4 [facility] Comment on above: Previous reported re sult: 1.2 RATIOEdited by: [employer] on 03/31/25:1235 AMENDED REPORT 03/31/25 1235 A/G previously reported as: 1.2 RATIO Serum or plasma alkaline clara sphatase measurementOrdered By: HEALTH ASSESSMENT on 03-31-2025 ALP [Catalytic activity/Vol] 57 U/L 35-104 [facility] Comment on above: Previous reported re sult: 60 U/LEdited by: [employer] on 03/31/25:1235 AMENDED REPORT 03/31/25 1235 ALK P previously reported as: 60 U/L Serum or plasma calcium wally urement (mass/volume)Ordered By: HEALTH ASSESSMENT on 03-31-2025 Calcium [Mass/Vol] 9.2 mg/dL 7.6-11.0 [facility] Comment on above: Previous reported re sult: 9.1 mg/dLEdited by: [employer] on 03/31/25:1235 AMENDED REPORT 03/31/25 1235 CA previously reported as: 9.1 mg/dL Serum or plasma cholesterol in HDL measurement (mass/volume)Ordered By: HEALTH ASSESSMENT on 03-31-2025 Cholesterol in HDL [Mass/Vol] 48 mg/dL >40 [facility] Comment on above: National Cholesterol Education Program (NCEP) guidelines:<40 mg/dL: Low HDL-cholesterol (major risk factor for CHD)>= 60 mg/dL: High HDL-cholesterol (negative risk factor for CHD)HDL-cholesterol is affected by a number of factors, e.g. smoking, exercise, hormones, sex and age. Serum or plasma cholesterol measurement (mass/volume)Ordered By: HEALTH ASSESSMENT on 03-31-2025 Cholesterol [Mass/Vol] 195 mg/dL <201 [facility] Comment on above: Cholesterol level, D esirable <200 mg/dLBorderline high cholesterol 200-239 mg/dLHigh cholesterol >=240 mg/dLRecommendations of the NCEP Adult Treatment Panel for the following risk-cutoff thresholds for the [place] population. Serum or plasma urea nitroge n measurement (mass/volume)Ordered By: HEALTH ASSESSMENT on 03-31-2025 Urea nitrogen [Mass/Vol] 13 mg/dL 4-19 [facility] Serum or plasma uric acid me asurement (mass/volume)Ordered By: HEALTH ASSESSMENT on 03-31-2025 Urate [Mass/Vol] 3.5 mg/dL 2.6-6.0 [facility] Comment on above: The drugs N-Acetylcy steine and Metamizole may falsely depress this assay. Sodium levelOrdered By: HEAL ASSESSMENT on 03-31-2025 Sodium [Moles/Vol] 138 mmol/L 133-145 [facility] TSH DL <= 0.005 mIU/L QnOrde red By: Rachel Lo on 03-31-2025 TSH Qn 0.699 uIU/mL 0.300-4.20 0 [facility] Thyroid Stim Hormone (TSH)on 03-31-2025 TSH 0.699 uIU/mL Normal 0.300-4.20 0 [facility] Comment on above: Performed By: #### L 501.9520 #### [facility] [address] [place] [address]. [place], [address] Total proteinOrdered By: [facility] ASSESSMENT on 03-31-2025 Protein [Mass/Vol] 6.9 g/dL 5.9-8.4 [facility] Comment on above: Previous reported re sult: 7.2 g/dLEdited by: [employer] on 03/31/25:1235 AMENDED REPORT 03/31/25 1235 T PROT previously reported as: 7.2 g/dL Triglycerides measurementOrd ered By: HEALTH ASSESSMENT on 03-31-2025 Triglyceride [Mass/Vol] 72 mg/dL <199 [facility] Comment on above: The drugs N-Acetylcy steine and Metamizole may falsely depress this assay. Normal range: <150 mg/dLBorderline High: 150-199 mg/dLHigh: 200-499 mg/dLVery High: >500 mg/dL Urinalysis, Employeeon 03-31 BILIRUBIN URINE Negative Normal Negative [facility] Comment on above: Order Comment: Urine , Random Performed By: #### L 400.0100, L500.2900, L100.0200 #### [facility] [address] [place], [address] Clarity (U) Clear Normal Clear [facility] Comment on above: Order Comment: Urine , Random Performed By: #### L 400.0100, L500.2900, L100.0200 #### [facility] [address] [place], [address] Color (U) Yellow Normal Yellow [facility] Comment on above: Order Comment: Urine , Random Performed By: #### L 400.0100, L500.2900, L100.0200 #### [facility] [address] [place], [address] GLUCOSE, UR Normal Normal Normal [facility] Comment on above: Order Comment: Urine , Random Performed By: #### L 400.0100, L500.2900, L100.0200 #### [facility] [address] [place], [address] KETONE UR Negative Normal Negative [facility] Comment on above: Order Comment: Urine , Random Performed By: #### L 400.0100, L500.2900, L100.0200 #### [facility] [address] [place], [address] LEUK ESTERASE 500 /ul Abnormal Negative [facility] Comment on above: Order Comment: Urine , Random Performed By: #### L 400.0100, L500.2900, L100.0200 #### [facility] [address] [place] [place], [address] Nitrite Ql (U) Negative Normal Negative [facility] Comment on above: Order Comment: Urine , Random Performed By: #### L 400.0100, L500.2900, L100.0200 #### [facility] [address] [place] [place], [address] OCCULT BLOOD-UR Negative Normal Negative [facility] Comment on above: Order Comment: Urine , Random Performed By: #### L 400.0100, L500.2900, L100.0200 #### [facility] [address] [place], [address] pH UR 6.0 Normal 5.0 - 8.0 [facility] Comment on above: Order Comment: Urine , Random Performed By: #### L 400.0100, L500.2900, L100.0200 #### [facility] [address] [place], [address] PROT DIPSTX 15 mg/dl Abnormal Negative [facility] Comment on above: Order Comment: Urine , Random Performed By: #### L 400.0100, L500.2900, L100.0200 #### [facility] [address] [place], [address] SP.GR. DIPSTX 1.015 Normal 1.002-1.03 0 [facility] Comment on above: Order Comment: Urine , Random Performed By: #### L 400.0100, L500.2900, L100.0200 #### [facility] [address] [place], [address] UROBILI Normal Normal Normal [facility] Comment on above: Order Comment: Urine , Random Performed By: #### L 400.0100, L500.2900, L100.0200 #### [facility] [address] [place], [address] Urine clarityOrdered By: [facility] ASSESSMENT on 03-31-2025 Clarity (U) Clear Clear [facility] Urine color determinationOrd ered By: HEALTH ASSESSMENT on 03-31-2025 Color (U) Yellow Yellow [facility] Urine glucose detectionOrder ed By: HEALTH ASSESSMENT on 03-31-2025 Glucose Ql (U) Normal mg/dl Normal [facility] Urine leukocyte esterase det ection by dipstickOrdered By: HEALTH ASSESSMENT on 03-31-2025 Leukocyte esterase Test strip Ql (U) 500 /ul High Negative [facility] Urine pHOrdered By: HEALTH A SSESSMENT on 03-31-2025 pH (U) 6.0 [pH] 5.0 - 8.0 [facility] Urine specific gravity measu rementOrdered By: HEALTH ASSESSMENT on 03-31-2025 Specific gravity (U) [Rel density] 1.015 1.002-1.03 0 [facility] Urine urobilinogen measureme ntOrdered By: HEALTH ASSESSMENT on 03-31-2025 Urobilinogen Ql (U) Normal mg/dl Normal [facility] White blood cell (WBC) count Ordered By: [facility] ASSESSMENT on 03-31-2025 WBC (Bld) [#/Vol] 6.6 10*3/uL 4.4-11.0 [facility] Breast imaging reportOrdered By: Chas Rooney on 10-31-2024 Study report [facility] Imaging Services [address] [place] [address] SCRN MAMM (CAD)W/MYRA BILAT MR#: [id number] Acct: [id number] Name: AFSHAN DON Rep #: [id number] : 1980 F 44 From: Dominick Rooney MD PCP: Dr. Rachel Lo DO Status: RE G CLI Study:SCRN MAMM (CAD)W/MYRA BILAT Date of Exa m: 10/31/24 Exam# [id number] Ordering Dr: Nneka Lo DO EXAM: SCRN [...] be mailed to the patient. Reading Location: [facility] CC: Dr. Rachel Lo DO ~ Extractor Filler: Signed [facility] SCRN MAMM (CAD)W/MYRA BILATo n 10-31-2024 SCRN MAMM (CAD)W/MYRA BILAT [facility] Imaging Services [address] [place] [id number] SCRN MAMM (CAD)W/MYRA BILAT MR#: [id number] Acct: [id number] Name: AFSHAN DON Rep #: [id number] : 1980 F 44 From: Chas mays MD PCP: Dr. Rachel Lo DO Status: REG CLI Study: SCRN MAMM (CAD)W/MYRA BILAT Date of Exam: 10/13 Exam# [id number] Ordering Dr: Rachel Lo DO EXAM: SCRN [...] be mailed to the patient. Reading Location: [place] [address] CC: Dr. Rachel Lo, DO Extractor Filler: Signed Normal [facility] CBC, Employeeon 05-01-2024 Absolute Lymph 1.74 X10 3/uL Normal 0.83-4.51 [facility] Comment on above: Performed By: #### L 400.0100, L500.2900, L100.0200 #### [facility] [address] [place], [address] Absolute Neut 4.7 X10 3/uL Normal 2.0-7.7 [facility] Comment on above: Performed By: #### L 400.0100, L500.2900, L100.0200 #### [facility] [address] [place], [address] Basophils/100 WBC (Bld) 0.4 % Normal 0-1 [facility] Comment on above: Performed By: #### L 400.0100, L500.2900, L100.0200 #### [facility] [address] [place], [address] Eosinophils/100 WBC (Bld) 3.1 % Normal 0-5 [facility] Comment on above: Performed By: #### L 400.0100, L500.2900, L100.0200 #### [facility] [address] [place], [address] Erythrocyte distribution width (RBC) [Ratio] 11.9 % Normal 11.6-14.6 [facility] Comment on above: Performed By: #### L 400.0100, L500.2900, L100.0200 #### [facility] [address] [place], [address] Hematocrit (Bld) [Volume fraction] 36.3 % Low 37-47 [facility] Comment on above: Performed By: #### L 400.0100, L500.2900, L100.0200 #### [facility] [address] [place], [address] Hemoglobin (Bld) [Mass/Vol] 12.3 g/dL Normal 12.0-15.0 [facility] Comment on above: Performed By: #### L 400.0100, L500.2900, L100.0200 #### [facility] [address] [place], [address] Lymphocytes/100 WBC (Bld) 24.2 % Normal 19-41 [facility] Comment on above: Performed By: #### L 400.0100, L500.2900, L100.0200 #### [facility] [address] [place], [address] MCH (RBC) [Entitic mass] 29.6 pg Normal 27.0-32.0 [facility] Comment on above: Performed By: #### L 400.0100, L500.2900, L100.0200 #### [facility] [address] [place], [address] MCHC (RBC) [Mass/Vol] 33.9 g/dL Normal 32-36 [facility] Comment on above: Performed By: #### L 400.0100, L500.2900, L100.0200 #### [facility] [address] [place], [address] MCV (RBC) [Entitic vol] 87.3 fL Normal 81-99 [facility] Comment on above: Performed By: #### L 400.0100, L500.2900, L100.0200 #### [facility] [address] [place], [address] Monocytes/100 WBC (Bld) 7.0 % Normal 0-10 [facility] Comment on above: Performed By: #### L 400.0100, L500.2900, L100.0200 #### [facility] [address] [place], [address] Neutrophils/100 WBC (Bld) 65.0 % Normal 47-70 [facility] Comment on above: Performed By: #### L 400.0100, L500.2900, L100.0200 #### [facility] [address] [place], [address] NRBC # 0.00 10 3/uL Normal 0-5 [facility] Comment on above: Performed By: #### L 400.0100, L500.2900, L100.0200 #### [facility] [address] [place], [address] Nucleated RBC (Bld) [#/Vol] 0 10*3/uL Normal 0-5 [facility] Comment on above: Performed By: #### L 400.0100, L500.2900, L100.0200 #### [facility] [address] [place], [address] Platelet mean volume (Bld) [Entitic vol] 10.2 fL Normal 6.2-12.0 [facility] Comment on above: Performed By: #### L 400.0100, L500.2900, L100.0200 #### [facility] [address] [place], [address] Platelets (Bld) [#/Vol] 290 10*3/uL Normal 150-450 [facility] Comment on above: Performed By: #### L 400.0100, L500.2900, L100.0200 #### [facility] [address] [place], [address] RBC (Bld) [#/Vol] 4.16 10*6/uL Low 4.2-5.4 [facility] Comment on above: Performed By: #### L 400.0100, L500.2900, L100.0200 #### [facility] [address] [place], [address] RDW SD 38.4 fl Normal 35.1-43.9 [facility] Comment on above: Performed By: #### L 400.0100, L500.2900, L100.0200 #### [facility] [address] [place], [address] WBC (Bld) [#/Vol] 7.2 10*3/uL Normal 4.4-11.0 [facility] Comment on above: Performed By: #### L 400.0100, L500.2900, L100.0200 #### [facility] [address] [place], [address] Employee Profileon 4 Albumin [Mass/Vol] 3.4 g/dL Normal 3.2-5.0 [facility] Comment on above: Performed By: #### L 400.0100, L500.2900, L100.0200 #### [facility] [address] [place], [address] Albumin/Globulin [Mass ratio] 0.9 {ratio} Normal 0.9-2.4 [facility] Comment on above: Performed By: #### L 400.0100, L500.2900, L100.0200 #### [facility] [address] [place], [address] ALK P 63 U/L Normal 45-117 [facility] Comment on above: Performed By: #### L 400.0100, L500.2900, L100.0200 #### [facility] [address] [place], [address] ALT [Catalytic activity/Vol] 31 U/L Normal 13-56 [facility] Comment on above: Performed By: #### L 400.0100, L500.2900, L100.0200 #### [facility] [address] [place], [address] AST [Catalytic activity/Vol] 45 U/L High 15-37 [facility] Comment on above: Performed By: #### L 400.0100, L500.2900, L100.0200 #### [facility] [address] [place], [address] Bilirubin [Mass/Vol] 0.30 mg/dL Normal 0.20-1.00 [facility] Comment on above: Result Comment: For patients on eltrombopag therapy, use of Dimension [place] TBIL is not recommended. Performed By: #### L 400.0100, L500.2900, L100.0200 #### [facility] [address] [place], [address] Bilirubin.direct [Mass/Vol] 0.11 mg/dL Normal 0.00-0.30 [facility] Comment on above: Performed By: #### L 400.0100, L500.2900, L100.0200 #### [facility] [address] [place], [address] BUN/CRE 15.2 RATIO Normal 10-20 [facility] Comment on above: Performed By: #### L 400.0100, L500.2900, L100.0200 #### [facility] [address] [place], [address] CA,Total 9.1 mg/dL Normal 8.5-10.1 [facility] Comment on above: Performed By: #### L 400.0100, L500.2900, L100.0200 #### [facility] [address] [place], [address] Chloride [Moles/Vol] 109 mmol/L High 98-107 [facility] Comment on above: Performed By: #### L 400.0100, L500.2900, L100.0200 #### [facility] [address] [place], [address] CHOL:HDL 3.80 Normal [facility] Comment on above: Performed By: #### L 400.0100, L500.2900, L100.0200 #### [facility] [address] [place], [address] Cholesterol [Mass/Vol] 161 mg/dL Normal 200 [facility] Comment on above: Result Comment: <200 mg/dL Desirable 200-240 mg/dL Borderline >240 mg/dL High Risk Performed By: #### L 400.0100, L500.2900, L100.0200 #### [facility] [address] [place], [address] Cholesterol in HDL [Mass/Vol] 42 mg/dL Normal [facility] Comment on above: Result Comment: The drugs N-Acetylcysteine and Metamizole may falsely depress this assay. Reference Range HDL <40 mg/dL Low HDL Cholesterol HDL >or= 60 mg/dL High HDL Cholesterol Performed By: #### L 400.0100, L500.2900, L100.0200 #### [facility] [address] [place], [address] Cholesterol in LDL [Mass/Vol] 99 mg/dL Normal 0-130 [facility] Comment on above: Performed By: #### L 400.0100, L500.2900, L100.0200 #### [facility] [address] [place] [place], [address] Cholesterol in VLDL [Mass/Vol] 20 mg/dL Normal 5-40 [facility] Comment on above: Performed By: #### L 400.0100, L500.2900, L100.0200 #### [facility] [address] [place], [address] CO2 [Moles/Vol] 23.0 mmol/L Normal 21.0-32.0 [facility] Comment on above: Performed By: #### L 400.0100, L500.2900, L100.0200 #### [facility] [address] [place], [address] Creatinine [Mass/Vol] 0.73 mg/dL Normal 0.55-1.02 [facility] Comment on above: Result Comment: The validity of the calculated GFR GFRAA in patients over 70 years has not been determined. Clinical correlation is essential. Performed By: #### L 400.0100, L500.2900, L100.0200 #### [facility] [address] [place], [address] EST GFR - AA 113 mL/min Normal >60 [facility] Comment on above: Result Comment: Afri can Algerian GFR Calc Performed By: #### L 400.0100, L500.2900, L100.0200 #### [facility] [address] [place], [address] GAP 7 Normal 5-15 [facility] Comment on above: Performed By: #### L 400.0100, L500.2900, L100.0200 #### [facility] [address] [place], [address] GFR/1.73 sq M.predicted among non-blacks MDRD (S/P/Bld) [Vol rate/Area] 94 mL/min/{1.73_m2} Normal >60 [facility] Comment on above: Result Comment: Non- GFR Calc Performed By: #### L 400.0100, L500.2900, L100.0200 #### [facility] [address] [place], [address] Globulin (S) [Mass/Vol] 3.6 g/dL Normal 2.2-4.2 [facility] Comment on above: Performed By: #### L 400.0100, L500.2900, L100.0200 #### [facility] [address] [place], [address] Glucose [Mass/Vol] 89 mg/dL Normal 74-106 [facility] Comment on above: Performed By: #### L 400.0100, L500.2900, L100.0200 #### [facility] [address] [place], [address] LDH 173 U/L Normal 84-246 [facility] Comment on above: Performed By: #### L 400.0100, L500.2900, L100.0200 #### [facility] [address] [place], [address] Phosphate [Mass/Vol] 3.6 mg/dL Normal 2.5-4.9 [facility] Comment on above: Performed By: #### L 400.0100, L500.2900, L100.0200 #### [facility] [address] [place], [address] Potassium [Moles/Vol] 3.9 mmol/L Normal 3.5-5.1 [facility] Comment on above: Performed By: #### L 400.0100, L500.2900, L100.0200 #### [facility] [address] [place], [address] Sodium [Moles/Vol] 139 mmol/L Normal 136-145 [facility] Comment on above: Performed By: #### L 400.0100, L500.2900, L100.0200 #### [facility] [address] [place], [address] T PROT 7.0 g/dL Normal 6.4-8.2 [facility] Comment on above: Performed By: #### L 400.0100, L500.2900, L100.0200 #### [facility] [address] [place], [address] Triglyceride [Mass/Vol] 100 mg/dL Normal [facility] Comment on above: Result Comment: The drugs N-Acetylcysteine and Metamizole may falsely depress this assay. Serum Triglycerides Reference Interval Normal <150 mg/dL Borderline high 150 - 199 mg/dL High 200 - 499 mg/dL Very High > or = 500 mg/dL Performed By: #### L 400.0100, L500.2900, L100.0200 #### [facility] [address] [place], [address] Urea nitrogen [Mass/Vol] 11 mg/dL Normal 7-18 [facility] Comment on above: Performed By: #### L 400.0100, L500.2900, L100.0200 #### [facility] [address] [place], [address] URIC 3.8 mg/dL Normal 2.6-6.0 [facility] Comment on above: Result Comment: The drugs N-Acetylcysteine and Metamizole may falsely depress this assay. Performed By: #### L 400.0100, L500.2900, L100.0200 #### [facility] [address] [place], [address] Urinalysis, Employeeon 05-01 BILIRUBIN URINE Negative Normal Negative [facility] Comment on above: Order Comment: CLEAN CATCH Performed By: #### L 400.0100, L500.2900, L100.0200 #### [facility] [address] [place], [address] Clarity (U) Clear Normal Clear [facility] Comment on above: Order Comment: CLEAN CATCH Performed By: #### L 400.0100, L500.2900, L100.0200 #### [facility] [address] [place], [address] Color (U) Yellow Normal Yellow [facility] Comment on above: Order Comment: CLEAN CATCH Performed By: #### L 400.0100, L500.2900, L100.0200 #### [facility] [address] [place], [address] GLUCOSE, UR Normal Normal Normal [facility] Comment on above: Order Comment: CLEAN CATCH Performed By: #### L 400.0100, L500.2900, L100.0200 #### [facility] [address] [place], [address] KETONE UR Negative Normal Negative [facility] Comment on above: Order Comment: CLEAN CATCH Performed By: #### L 400.0100, L500.2900, L100.0200 #### [facility] [address] [place], [address] LEUK ESTERASE Negative Normal Negative [facility] Comment on above: Order Comment: CLEAN CATCH Performed By: #### L 400.0100, L500.2900, L100.0200 #### [facility] [address] [place], [address] Nitrite Ql (U) Negative Normal Negative [facility] Comment on above: Order Comment: CLEAN CATCH Performed By: #### L 400.0100, L500.2900, L100.0200 #### [facility] [address] [place], [address] OCCULT BLOOD-UR Negative Normal Negative [facility] Comment on above: Order Comment: CLEAN CATCH Performed By: #### L 400.0100, L500.2900, L100.0200 #### [facility] [address] [place], [address] pH UR 6.0 Normal 5.0 - 8.0 [facility] Comment on above: Order Comment: CLEAN CATCH Performed By: #### L 400.0100, L500.2900, L100.0200 #### [facility] [address] [place], [address] PROT DIPSTX Negative Normal Negative [facility] Comment on above: Order Comment: CLEAN CATCH Performed By: #### L 400.0100, L500.2900, L100.0200 #### [facility] [address] [place], [address] SP.GR. DIPSTX 1.020 Normal 1.002-1.03 0 [facility] Comment on above: Order Comment: CLEAN CATCH Performed By: #### L 400.0100, L500.2900, L100.0200 #### [facility] [address] [place], [address] UROBILI Normal Normal Normal [facility] Comment on above: Order Comment: CLEAN CATCH Performed By: #### L 400.0100, L500.2900, L100.0200 #### [facility] [address] [place], [address] Absolute lymphocyte counton 05-06-2022 Lymphocytes Auto (Unsp spec) [#/Vol] 1.83 10*3/uL 0.83-4.51 [facility] Work Phone: Absolute reticulocyte counto n 05-06-2022 Reticulocytes (Bld) [#/Vol] 0.00 10*3/uL 0-5 [facility] Work Phone: Basophil percentageon 2021 Basophil percentage 3.6 mg/dL 2.5-4.9 [facility] Work Phone: Bilirubin [Mass/Vol] 0.40 mg/dL 0.20-1.00 [facility] Work Phone: Comment on above: For patients on eltr ombopag therapy, use of Dimension [place] TBIL is not recommended. Chloride [Moles/Vol] 107 mmol/L 98-107 [facility] Work Phone: Cholesterol [Mass/Vol] 190 mg/dL <[address] [facility] Work Phone: Comment on above: <200 mg/dL Desirable 200-240 mg/dL Borderline >240 mg/dL High Risk Glucose [Mass/Vol] 96 mg/dL 74-106 [facility] Work Phone: Neutrophils (Bld) [#/Vol] 4.8 10*3/uL 2.0-7.7 [facility] Work Phone: Potassium [Moles/Vol] 4.2 mmol/L 3.5-5.1 [facility] Work Phone: Protein [Mass/Vol] 7.4 g/dL 6.4-8.2 [facility] Work Phone: Sodium [Moles/Vol] 138 mmol/L 136-145 [facility] Work Phone: Triglyceride [Mass/Vol] 106 mg/dL <199 [facility] Work Phone: Comment on above: The drugs N-Acetylcy steine and Metamizole may falsely depress this assay.Serum Triglycerides Reference Interval Normal <150 mg/dL Borderline high 150 - 199 mg/dL High 200 - 499 mg/dL Very High > or = 500 mg/dL WBC (Bld) [#/Vol] 7.5 10*3/uL 4.4-11.0 [facility] Work Phone: Bilirubin Test strip Ql (U)o n 05-06-2022 Bilirubin Ql (U) Negative Negative [facility] Work Phone: Blood erythrocytes count (nu mber/volume)on 05-06-2022 RBC (Bld) [#/Vol] 4.46 10*6/uL 4.2-5.4 [facility] Work Phone: Blood hemoglobin measurement (mass/volume)on 05-06-2022 Hemoglobin (Bld) [Mass/Vol] 13.0 g/dL 12.0-15.0 [facility] Work Phone: Blood platelet mean volumeon 05-06-2022 Platelet mean volume (Bld) [Entitic vol] 10.9 fL 6.2-12.0 [facility] Work Phone: Determination of erythrocyte mean corpuscular volume (MCV)on 05-06-2022 MCV (RBC) [Entitic vol] 89.0 fL 81-99 [facility] Work Phone: Direct bilirubinon Bilirubin.direct [Mass/Vol] 0.05 mg/dL 0.00-0.30 [facility] Work Phone: Hematocrit Auto (Bld) [Volum e fraction]on 05-06-2022 Hematocrit (Bld) [Volume fraction] 39.7 % 37-47 [facility] Work Phone: Ketones Test strip Ql (U)on 05-06-2022 Ketones Ql (U) Negative Negative [facility] Work Phone: Laboratory - Chemistry and C hemistry - challengeon 05-06-2022 ALP [Catalytic activity/Vol] 76 U/L 45-117 [facility] Work Phone: ALT [Catalytic activity/Vol] 48 U/L 13-56 [facility] Work Phone: Cholesterol.total/Chol esterol in HDL [Mass ratio] 4.50 {ratio} [facility] Work Phone: CO2 [Moles/Vol] 23.0 mmol/L 21.0-32.0 [facility] Work Phone: Globulin (S) [Mass/Vol] 4.0 g/dL 2.2-4.2 [facility] Work Phone: Urea nitrogen/Creatinine [Mass ratio] 17.4 mg/mg 10-20 [facility] Work Phone: Laboratory - Hematology and Cell countson 05-06-2022 Erythrocyte distribution width (RBC) [Entitic vol] 38.5 fL 35.1-43.9 [facility] Work Phone: Erythrocyte distribution width (RBC) [Ratio] 11.9 % 11.6-14.6 [facility] [facility] Work Phone: MCH (RBC) [Entitic mass] 29.1 pg 27.0-32.0 [facility] Work Phone: Nucleated RBC/100 WBC (Bld) [Ratio] 0 % 0-5 [facility] Work Phone: MCHC Auto (RBC) [Mass/Vol]on 05-06-2022 MCHC (RBC) [Mass/Vol] 32.7 g/dL 32-36 [facility] Work Phone: Nitrite Test strip Ql (U)on 05-06-2022 Nitrite Ql (U) Negative Negative [facility] Work Phone: No Panel Informationon 05-06 Thyroid Stimulating Hormone (TSH) 1.08 uIU/mL 0.358-3.74 [facility] Work Phone: Estimated GFR (MDRD) Amer 111 mL/min >60 [facility] Work Phone: Comment on above: GFR Calc Estimated GFR (MDRD) Non-Af Amer 92 mL/min >60 [facility] Work Phone: Comment on above: Non- GFR Calc Platelets bldon 05-06-2022 Platelets (Bld) [#/Vol] 302 10*3/uL 150-450 [facility] Work Phone: Protein Test strip Ql (U)on 05-06-2022 Protein Ql (U) Negative Negative [facility] Work Phone: Segmented neutrophils/100 WB C Auto (Bld)on 05-06-2022 Segmented neutrophils/100 WBC (Bld) 64.6 % 47-70 [facility] Work Phone: Serum or plasma albumin wally urement (mass/volume)on 05-06-2022 Albumin [Mass/Vol] 3.4 g/dL 3.2-5.0 [facility] Work Phone: Serum or plasma albumin/glob ulin mass ratioon 05-06-2022 Albumin/Globulin [Mass ratio] 0.8 {ratio} 0.9-2.4 [facility] Work Phone: Serum or plasma calcium wally urement (mass/volume)on 05-06-2022 Calcium [Mass/Vol] 9.1 mg/dL 8.5-10.1 [facility] Work Phone: Serum or plasma cholesterol in HDL measurement (mass/volume)on 05-06-2022 Cholesterol in HDL [Mass/Vol] 42 mg/dL >40 [facility] Work Phone: Comment on above: The drugs N-Acetylcy steine and Metamizole may falsely depress this assay. Reference Range HDL <40 mg/dL Low HDL Cholesterol HDL >or= 60 mg/dL High HDL Cholesterol Serum or plasma cholesterol in VLDL measurement (mass/volume)on 05-06-2022 Cholesterol in VLDL [Mass/Vol] 21 mg/dL 5-40 [facility] Work Phone: Serum or plasma creatinine m easurement (mass/volume)on 05-06-2022 Creatinine [Mass/Vol] 0.75 mg/dL 0.55-1.02 [facility] Work Phone: Comment on above: The validity of the calculated GFR & GFRAA in patients over 70 years has not been determined. Clinical correlation is essential. Serum or plasma low density lipoprotein (LDL) cholesterol measurement (mass/volume)on 05-06-2022 Cholesterol in LDL [Mass/Vol] 127 mg/dL 0-130 [facility] Work Phone: Serum or plasma urea nitroge n measurement (mass/volume)on 05-06-2022 Urea nitrogen [Mass/Vol] 13 mg/dL 7-18 [facility] Work Phone: Serum or plasma uric acid me asurement (mass/volume)on 05-06-2022 Urate [Mass/Vol] 4.2 mg/dL 2.6-6.0 [facility] Work Phone: Comment on above: The drugs N-Acetylcy steine and Metamizole may falsely depress this assay. Thin prep Papanicolaou smear with manual screeningon 05-06-2022 Thin prep Papanicolaou smear with manual screening 54 U/L 15-37 [facility] Work Phone: Thin prep Papanicolaou smear with manual screening 8 5-15 [facility] Work Phone: Thin prep Papanicolaou smear with manual screening 217 U/L 84-246 [facility] Work Phone: Urine blood detectionon 04-15 RBC Ql (U) Negative Negative [facility] Work Phone: Urine clarityon 05-06-2022 Clarity (U) Clear Clear [facility] Work Phone: Urine color determinationon 05-06-2022 Color (U) Yellow Yellow [facility] Work Phone: Urine glucose detectionon Glucose Ql (U) Normal mg/dl Normal [facility] Work Phone: Urine leukocyte esterase det ection by dipstickon 05-06-2022 Leukocyte esterase Test strip Ql (U) 25 /ul Negative [facility] Work Phone: Urine pHon 05-06-2022 pH (U) 6.0 [pH] 5.0 - 8.0 [facility] Work Phone: Urine specific gravity measu rementon 05-06-2022 Specific gravity (U) [Rel density] 1.015 1.002-1.03 0 [facility] Work Phone: Urobilinogen Auto test strip Ql (U)on 05-06-2022 Urobilinogen Ql (U) Normal mg/dl Normal [facility] Work Phone: Provider Note - ED v2on [...] 8 hours SIGNIFICANT EVENTS: No documented data. SUSTAIN ENGINEER: Is : no Is : no REVIEW OF SYSTEMS MUSCULOSKELETAL: POSITIVE for: pain All other systems reviewed and are negative RESULTS/VITAL SIGNS RESULTS: Radiology Results: STUDY: Wrist Radiographs; 04/27/2021 4:11PM INDICATION: Pain to outer left wrist post twisting injury. COMPARISON: None available. ACCESSION NUMBER(S): [id number] ORDERING CLINICIAN: KURTIS RENO CNP TECHNIQUE: Three [...] SIGNS: T PRBP SpO2O2(LPM) %FiO2 Method 27-Apr-2021 15:49:[id number] PHYSICAL EXAM CONSTITUTIONAL: Well appearing, well [...] ill patient: no Electronic Signatures: Kurtis Reno (ANALYTICS SENIOR MANAGER-ALIYAH) (Signed 27-Apr-2021 17:07) Authored: ED Notes, HPI, PMH, ROS, PE, Results/Vital Signs, Clinical Impression, Attestation, Chart Review, Scores Last Updated: 27-Apr-2021 17:07 by Kurtis Reno (ANALYTICS SENIOR MANAGER-PHARMACY AFFAIRS ASSISTANT) [facility] WRIST COMPLT MIN 3 VIEWSon 0 04-27-2021 WRIST COMPLT MIN 3 VIEWS STUDY: Wrist Radiographs; 04/27/2021 4:11PM INDICATION: Pain to outer left wrist post twisting injury. COMPARISON: None available. ACCESSION NUMBER(S): [id number] ORDERING CLINICIAN: KURTIS RENO CNP TECHNIQUE: Three view(s) of the left wrist. FINDINGS: No discrete fracture. No focal soft tissue abnormality. No abnormal radiopaque foreign body. Impression: No acute bony abnormality demonstrated by this technique. Should occult bony injury be a consideration, bone scan or MRI may be helpful for further evaluation. Signed by Miguel Davidson D.O. Electronically signed by: MIGUEL DAVIDSON, DO [facility] Sputum CultureOrdered By: Sy stem [employer]ishing Vessel Operator on 07-17-2018 Bacteria identified Cx Nom (Sput) Final report Normal [facility] Work Phone: Bacteria identified Cx Nom (Sput) RRF Normal [facility] Work Phone: Comment on above: Routine respiratory jeny Sputum Culture ([id number])Ordere d By: Diversity Intern on 07-17-2018 Epithelial cells.squamous LM Ql (Sput) Few Normal [facility] Work Phone: Comment on above: PATIENT NOT FASTINGP ERFORMED BY: CB [facility] [id number] Hilario [employer] [place] [id number] Information: SRC:SP Microscopic observation Gram stain Nom (Sput) PCF Normal [facility] Work Phone: Comment on above: Few gram positive co cciRare gram negative rods. PATIENT NOT FASTINGP ERFORMED BY: CB [facility] [id number] [place]io [place] [id number] Information: SRC:SP Microscopic observation Gram stain Nom (Sput) GSACC Normal [facility] Work Phone: Comment on above: This specimen is of good quality and is acceptable for routinebacterial culture. 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 No endocervical [...] AND MALIGNANCY. The HPV DNA reflex c domenic were not met with this specimenresult therefore, no HPV testing was performed.Performed at: [address] [id number] Director: Starr Hinton MD, Phone: [phone] This liquid based Th inPrep(R) pap test was screened withthe use of an image guided system. PAP I-G w/rfx hrHPV . [facility] Work Phone: CBC, EmployeeOrdered By: Mando tem Commercial Fishing Vessel Operator on 04-09-2018 Basophils/100 WBC Auto (Bld) 0.2 [...] WBC Auto (Bld) 7.0 % Normal 0-10 [facility] Work Phone: Neutrophils/100 WBC Auto (Bld) 67.4 % Normal 47-70 [facility] Work Phone: Platelet mean volume Auto Entitic volume (Bld) 10.8 fL Normal 6.2-12.0 [facility] Work Phone: Platelets Auto #/vol (Bld) 316 10*3/uL Normal 150-450 [facility] Work Phone: RBC Auto #/vol (Bld) 4.70 {M/mm3} Normal 4.2-5.4 [facility] Work Phone: WBC Auto #/vol (Bld) 8.8 10*3/uL Normal 4.4-11.0 Com [facility] Work Phone: CBC, Employee 38.5 fL Normal 35.1-43.9 [facility] Work Phone: CBC, Employee 2.07 {X10_3/ul} Normal 0.83-4.51 Compre [facility] Work Phone: CBC, Employee 5.9 {X10_3/uL} Normal 2.0-7.7 [facility] Work Phone: Employee ProfileOrdered By: Diversity Intern on 04-09-2018 Albumin mass conc 3.6 g/dL Normal 3.2-5.0 Compre[facility] Work Phone: Albumin/Globulin mass ratio 0.9 {RATIO} Normal 0.9-2.4 [facility] Work Phone: ALT enzyme act/vol 30 U/L Normal 13-56 [facility] Work Phone: AST enzyme act/vol 42 U/L Abnormal 15-37 [facility] Work Phone: Bilirubin mass conc 0.40 mg/dL Normal 0.20-1.00 [facility] Work Phone: Bilirubin.direct mass conc 0.08 mg/dL Normal 0.00-0.30 [facility] Work Phone: Calcium mass conc 9.0 mg/dL Normal 8.5-10.1 [facility] Work Phone: Chloride molar conc 105 mmol/L Normal 98-107 Compr ehens[facility] Work Phone: Cholesterol in HDL mass conc 46 mg/dL Normal [facility] Work Phone: Comment on above: The drugs N-Acetylcy steine and Metamizole may falselydepress this assay. Reference Range HDL <40 mg/dL Low HDL Cholesterol HDL >or= 60 mg/dL High HDL Cholesterol Cholesterol in LDL mass conc 131 mg/dL Abnormal 0-130 [facility] Work Phone: Cholesterol mass conc 202 mg/dL Abnormal Com prehens[facility] Work Phone: Comment on above: <200 mg/dL Desirable 200-240 mg/dL Borderline >240 mg/dL High Risk CO2 molar conc 25.0 mmol/L Normal 21.0-32.0 Comprehen [facility] Work Phone: Creatinine mass conc 0.74 mg/dL Normal 0.55-1.02 Comp rehensive [facility] Work Phone: Comment on above: The validity of the calculated GFR AND GFRAA in patients over70 years has not been determined. Clinical correlation isessential. GFR/1.73 sq M predicted among non-blacks MDRD vol rate/area (S/P/Bld) 94 mL/min/{1.73_m2} Normal [facility] Work Phone: Comment on above: Non- GFR Calc Glucose mass conc 87 mg/dL Normal 74-106 Com[facility] Work Phone: Comment on above: Please note revised GLUCOSE reference range [id number]. Potassium molar conc 4.2 mmol/L Normal 3.5-5.1 [...] Employee Profile 191 U/L Normal 84-246 Comprehe nsive [facility] Work Phone: Nicotine Urine Drug ScreenOr dered By: Diversity Intern on 04-09-2018 Nicotine Urine Drug Screen Normal [...] positive results are used. Urinalysis, EmployeeOrdered By: Diversity Intern on 04-09-2018 Urinalysis, Employee Normal Normal [facility] Work Phone: Urinalysis, Employee Negative Normal [facility] Work Phone: Comment on above: Cotinine is the firs t-stage metabolite of Nicotine. Urinalysis, Employee 100 /ul Abnormal [facility] Work Phone: Urinalysis, Employee 1.010 1 Normal 1.002-1 .03 0 [facility] Work Phone: Urinalysis, Employee Clear Normal [facility] Work Phone: Urinalysis, Employee 7.0 1 Normal 5.0 - 8.0 [facility] Work Phone: Urinalysis, Employee Yellow Normal [facility] Work Phone: CBC W/Diff, AutomatedOrdered By: Diversity Intern on 12-26-2017 Basophils/100 WBC Auto (Bld) 0.1 % Normal 0-1 [facility] Work Phone: Eosinophils/100 WBC Auto (Bld) 1.4 % Normal 0-5 [facility] Work Phone: Erythrocyte distribution width Auto Ratio (RBC) 12.5 % Normal 11.6-14.6 [facility] Work Phone: Hematocrit Auto Volume Fraction (Bld) 36.4 % Abnormal 37-47 [facility] Work Phone: Hemoglobin mass conc (Bld) 12.1 g/dL Normal 12.0-15.0 [facility] Work Phone: Lymphocytes/100 WBC Auto (Bld) 29.4 % Normal 19-41 [facility] Work Phone: MCH Auto Entitic mass (RBC) 29.5 pg Normal 27.0-32.0 [facility] Work Phone: MCHC Auto mass conc (RBC) 33.2 {g/gl} Normal 32-36 [facility] Work Phone: MCV Auto Entitic volume (RBC) 88.8 fL Normal 81-99 [facility] Work Phone: Monocytes/100 WBC Auto (Bld) 7.4 % Normal 0-10 [facility] Work Phone: Neutrophils/100 WBC Auto (Bld) 61.6 % Normal 47-70 [facility] Work Phone: Platelet mean volume Auto Entitic volume (Bld) 10.5 fL Normal 6.2-12.0 [facility] Work Phone: Platelets Auto #/vol (Bld) 295 10*3/uL Normal 150-450 [facility] Work Phone: RBC Auto #/vol (Bld) 4.10 {M/mm3} Abnormal 4.2-5.4 [facility] Work Phone: WBC Auto #/vol (Bld) 7.2 10*3/uL Normal 4.4-11.0 [facility] prehensive Internal Medicine Work Phone: CBC W/Diff, Automated 39.1 fL Normal 35.1-43.9 [facility] prehensive [facility] Work Phone: CBC W/Diff, Automated 4.4 {X10_3/uL} Normal 2.0-7.7 [facility] Work Phone: CBC W/Diff, Automated 2.11 {X10_3/ul} Normal 0.83-4.51 [facility] Work Phone: CBC W/Diff, Automated 0.100 % Normal 0.0-0.9 [facility] Work Phone: Comment on above: IG% - Immature Granu locytes (promyelocytes, myelocytes andmetamyelocytes) > 1% indicates that a LEFT SHIFT is Present. Liver ProfileOrdered By: Sys tem Commercial Fishing Vessel Operator on 12-26-2017 Albumin mass conc 3.5 g/dL Normal 3.2-5.0 [facility] Work Phone: ALP enzyme act/vol 64 U/L Normal 45-117 [facility] Work Phone: ALT enzyme act/vol 31 U/L Normal 13-56 [facility] Work Phone: AST enzyme act/vol 47 U/L Abnormal 15-37 [facility] Work Phone: Bilirubin mass conc 0.20 mg/dL Normal 0.20-1.00 [facility] Work Phone: Bilirubin.direct mass conc mg/dL Normal 0.00-0.30 [facility] Work Phone: Globulin Calculated mass conc (S) 3.8 g/dL Normal 2.2-4.2 [facility] Work Phone: Protein mass conc 7.3 g/dL Normal 6.4-8.2 [facility] Work Phone: CBC W/Diff, AutomatedOrdered By: Diversity Intern on 08-10-2017 Basophils/100 WBC Auto (Bld) 0.2 % Normal 0-1 [facility] Work Phone: Eosinophils/100 WBC Auto (Bld) 1.2 % Normal 0-5 [facility] Work Phone: Erythrocyte distribution width Auto Ratio (RBC) 12.5 % Normal 11.6-14.6 [facility] Work Phone: Hematocrit Auto Volume Fraction (Bld) 41.8 % Normal 37-47 [facility] Work Phone: Hemoglobin mass conc (Bld) 13.7 g/dL Normal 12.0-15.0 [facility] Work Phone: Lymphocytes/100 WBC Auto (Bld) 26.8 % Normal 19-41 [facility] Work Phone: MCH Auto Entitic mass (RBC) 29.1 pg Normal 27.0-32.0 [facility] Work Phone: MCHC Auto mass conc (RBC) 32.8 {g/gl} Normal 32-36 [facility] Work Phone: MCV Auto Entitic volume (RBC) 88.9 fL Normal 81-99 [facility] Work Phone: Monocytes/100 WBC Auto (Bld) 7.8 % Normal 0-10 [facility] Work Phone: Neutrophils/100 WBC Auto (Bld) 63.9 % Normal 47-70 [facility] Work Phone: Platelet mean volume Auto Entitic volume (Bld) 10.6 fL Normal 6.2-12.0 [facility] Work Phone: Platelets Auto #/vol (Bld) 286 10*3/uL Normal 150-450 [facility] Work Phone: RBC Auto #/vol (Bld) 4.70 {M/mm3} Normal 4.2-5.4 [facility] Work Phone: WBC Auto #/vol (Bld) 8.2 10*3/uL Normal 4.4-11.0 [facility] Work Phone: CBC W/Diff, Automated 40.3 fL Normal 35.1-43.9 [facility] Work Phone: CBC W/Diff, Automated 2.20 {X10_3/ul} Normal 0.83-4.51 [facility] Work Phone: CBC W/Diff, Automated 0.100 % Normal 0.0-0.9 [facility] Work Phone: Comment on above: IG% - Immature Granu locytes (promyelocytes, myelocytes andmetamyelocytes) > 1% indicates that a LEFT SHIFT is Present. CBC W/Diff, Automated 5.2 {X10_3/uL} Normal 2.0-7.7 [facility] Work Phone: Liver ProfileOrdered By: Sys tem Commercial Fishing Vessel Operator on 08-10-2017 Albumin mass conc 3.7 g/dL Normal 3.4-5.0 [facility] Work Phone: Comment on above: Please note revised Albumin AND Globulin reference rangeeffective 2017. ALP enzyme act/vol 77 U/L Normal 45-117 [facility] Work Phone: ALT enzyme act/vol 40 U/L Normal 12-78 [facility] Work Phone: AST enzyme act/vol 52 U/L Abnormal 15-37 [facility] Work Phone: Bilirubin mass conc 0.30 mg/dL Normal 0.20-1.00 [facility] Work Phone: Bilirubin.direct mass conc 0.08 mg/dL Normal 0.00-0.30 [facility] Work Phone: Globulin Calculated mass conc (S) 4.1 g/dL Normal 2.2-4.2 [facility] Work Phone: Protein mass conc 7.8 g/dL Normal 6.4-8.2 [facility] Work Phone: CBC W/Diff, AutomatedOrdered By: Diversity Intern on 06-02-2017 Basophils/100 WBC Auto (Bld) 0.1 % Normal 0-1 [facility] Work Phone: Eosinophils/100 WBC Auto (Bld) 0.7 % Normal 0-5 [facility] Work Phone: Erythrocyte distribution width Auto Ratio (RBC) 12.5 % Normal 11.6-14.6 [facility] Work Phone: Hematocrit Auto Volume Fraction (Bld) 39.9 % Normal 37-47 [facility] Work Phone: Hemoglobin mass conc (Bld) 13.5 g/dL Normal 12.0-15.0 [facility] Work Phone: Lymphocytes/100 WBC Auto (Bld) 25.7 % Normal 19-41 [facility] Work Phone: MCH Auto Entitic mass (RBC) 29.7 pg Normal 27.0-32.0 [facility] Work Phone: MCHC Auto mass conc (RBC) 33.8 {g/gl} Normal 32-36 [facility] Work Phone: MCV Auto Entitic volume (RBC) 87.9 fL Normal 81-99 [facility] Work Phone: Monocytes/100 WBC Auto (Bld) 8.7 % Normal 0-10 [facility] Work Phone: Neutrophils/100 WBC Auto (Bld) 64.6 % Normal 47-70 [facility] Work Phone: Platelet mean volume Auto Entitic volume (Bld) 10.2 fL Normal 6.2-12.0 [facility] Internal [facility] Work Phone: Platelets Auto #/vol (Bld) 256 10*3/uL Normal 150-450 [facility] Work Phone: RBC Auto #/vol (Bld) 4.54 {M/mm3} Normal 4.2-5.4 [facility] Work Phone: WBC Auto #/vol (Bld) 8.0 10*3/uL Normal 4.4-11.0 [facility] Work Phone: CBC W/Diff, Automated 5.2 {X10_3/uL} Normal 2.0-7.7 [facility] Work Phone: CBC W/Diff, Automated 39.2 fL Normal 35.1-43.9 [facility] Work Phone: CBC W/Diff, Automated 2.06 {X10_3/ul} Normal 0.83-4.51 [facility] Work Phone: CBC W/Diff, Automated 0.200 % Normal 0.0-0.9 [facility] Work Phone: Comment on above: IG% - Immature Granu locytes (promyelocytes, myelocytes andmetamyelocytes) > 1% indicates that a LEFT SHIFT is Present. Liver ProfileOrdered By: Sys tem Commercial Fishing Vessel Operator on 06-02-2017 Albumin mass conc 3.7 g/dL Normal 3.4-5.0 [facility] Work Phone: Comment on above: Please note revised Albumin AND Globulin reference rangeeffective 2017. ALP enzyme act/vol 72 U/L Normal 45-117 [facility] Work Phone: ALT enzyme act/vol 43 U/L Normal 12-78 [facility] Work Phone: AST enzyme act/vol 42 U/L Abnormal 15-37 [facility] Work Phone: Bilirubin mass conc 0.30 mg/dL Normal 0.20-1.00 [facility] Work Phone: Bilirubin.direct mass conc 0.13 mg/dL Normal 0.00-0.30 [facility] Work Phone: Globulin Calculated mass conc (S) 3.8 g/dL Normal 2.2-4.2 [facility] Work Phone: Protein mass conc 7.5 g/dL Normal 6.4-8.2 [facility] Work Phone: CBC, EmployeeOrdered By: [employer] Commercial Fishing Vessel Operator on 04-18-2017 Basophils/100 WBC Auto (Bld) 0.2 % Normal 0-1 [facility] Work Phone: Eosinophils/100 WBC Auto (Bld) 1.3 % Normal 0-5 [facility] Work Phone: Erythrocyte distribution width Auto Ratio (RBC) 12.0 % Normal 11.6-14.6 [facility] Work Phone: Hematocrit Auto Volume Fraction (Bld) 38.7 % Normal 37-47 [facility] Work Phone: Hemoglobin mass conc [...] Entitic volume (RBC) 88.0 fL Normal 81-99 [facility] Work Phone: Monocytes/100 WBC Auto (Bld) 6.9 % Normal 0-10 [facility] Work Phone: Neutrophils/100 WBC Auto (Bld) 64.2 % Normal 47-70 [facility] Work Phone: Platelet mean volume Auto Entitic volume (Bld) 10.4 fL Normal 6.2-12.0 [facility] Work Phone: Platelets Auto #/vol (Bld) 260 10*3/uL Normal 150-450 [facility] Work [...] Phone: CBC, Employee 38.3 fL Normal 35.1-43.9 Comprehensi ve Internal Medicine Work Phone: Employee ProfileOrdered By: Diversity Intern on 04-18-2017 Albumin mass conc 3.5 g/dL Normal 3.4-5.0 Compreh ensive [facility] Medicine Work Phone: Albumin/Globulin mass ratio 0.9 {RATIO} Normal 0.9-2.4 [facility] Work Phone: ALT enzyme act/vol 39 U/L Normal 12-78 [facility] Work Phone: AST enzyme act/vol 56 U/L Abnormal 15-37 [facility] Work Phone: Bilirubin mass conc 0.50 mg/dL Normal 0.20-1.00 [facility] Work Phone: Bilirubin.direct mass conc 0.13 mg/dL Normal 0.00-0.30 [facility] Internal Medicine Work Phone: Calcium mass conc 9.1 mg/dL Normal 8.5-10.1 [facility] Internal Medicine Work Phone: Chloride molar conc 104 mmol/L Normal 98-107 [facility] Internal Medicine Work Phone: Cholesterol in HDL mass conc 47 mg/dL Normal [facility] Internal Medicine Work Phone: Comment on above: The drugs N-Acetylcy steine and Metamizole may falselydepress this assay. Reference Range HDL <40 mg/dL Low HDL Cholesterol HDL >or= 60 mg/dL High HDL Cholesterol Cholesterol in LDL mass conc 113 mg/dL Normal 0-130 [facility] Internal Medicine Work Phone: Cholesterol mass conc 182 mg/dL Normal [facility] Internal Medicine Work Phone: Comment on above: <200 mg/dL Desirable 200-240 mg/dL Borderline >240 mg/dL High Risk CO2 molar conc 23.0 mmol/L Normal 21.0-32.0 [facility] Internal Medicine Work Phone: Creatinine mass conc 0.67 mg/dL Normal 0.55-1.02 [facility] Internal Medicine Work Phone: Comment on above: The validity of the calculated GFR AND GFRAA in patients over70 years has not been determined. Clinical correlation isessential. GFR/1.73 sq M predicted among non-blacks MDRD vol rate/area (S/P/Bld) 107 mL/min/{1.73_m2} Normal [facility] Internal Medicine Work Phone: Comment on [...] Calc Nicotine Urine Drug ScreenOr dered By: Diversity Intern on 04-18-2017 Nicotine Urine Drug Screen Normal [...] positive results are used. Urinalysis, EmployeeOrdered By: Diversity Intern on 04-18-2017 Urinalysis, Employee Negative Normal Comp [...] Phone: PAP I-G w/rfx hrHPVOrdered B y: Diversity Intern on 04-05-2017 Protein mass conc Comment Normal Compreh ensive Internal Medicine Work Phone: Comment on above: R87.5 PAP I-G w/rfx hrHPV Comment Normal Compr ehensive Internal Medicine Work Phone: Comment on above: The HPV DNA reflex c riteria were not met with this specimenresult therefore, no HPV testing was performed.Performed at: [address], [place] [id number] Director: Starr Hinton MD, Phone: [phone] This liquid based Th inPrep(R) pap test [...] Normal Compr ehensive Internal Medicine Work Phone: ,UrineOrdered By: Anai jonesm Commercial Fishing Vessel Operator on 02-09-2017 ,Urine Negative Normal Comprehen [facility] Internal Medicine Work Phone: Comment on above: Very dilute urine sp ecimens, as indicated by a low specificgravity, may not contain payable representative levels of hCG.If is still suspected, a first morning urinespecimen should be collected 48 hours later and tested. Basic Metabolic Profile (BMP )Ordered By: Diversity Intern on 01-03-2017 Basic metabolic 2000 panel 9 [...] Non- GFR Calc CBC W/Diff, AutomatedOrdered By: Diversity Intern on 01-03-2017 Basophils/100 WBC Auto (Bld) 0.1 [...] Entitic mass (RBC) 29.4 pg Normal 27.0-32.0 [facility] Work Phone: MCHC Auto mass conc (RBC) 33.4 {g/gl} Normal 32-36 [facility] Work Phone: MCV Auto Entitic volume (RBC) 88.0 fL Normal 81-99 [facility] Work Phone: Monocytes/100 WBC Auto (Bld) 6.9 % Normal 0-10 [facility] Internal Medicine Work Phone: Neutrophils/100 WBC Auto (Bld) 68.5 % Normal 47-70 [facility] Internal Medicine Work Phone: Platelet mean volume Auto Entitic volume (Bld) 10.8 fL Normal 6.2-12.0 [facility] Internal Medicine Work Phone: Platelets Auto #/vol (Bld) 293 10*3/uL Normal 150-450 [facility] Internal Medicine Work Phone: RBC Auto #/vol (Bld) 4.66 {M/mm3} Normal 4.2-5.4 [facility] Internal Medicine Work Phone: WBC Auto #/vol (Bld) 8.7 10*3/uL Normal 4.4-11.0 [facility] Internal Medicine Work Phone: CBC W/Diff, Automated 2.03 {X10_3/ul} Normal 0.83-4.51 [facility] Internal Medicine Work Phone: CBC W/Diff, Automated 5.9 {X10_3/uL} Normal 2.0-7.7 [facility] Internal Medicine Work Phone: CBC W/Diff, Automated 0.200 % Normal 0.0-0.9 [facility] Internal Medicine Work Phone: Comment on above: IG% - Immature Granu locytes (promyelocytes, myelocytes andmetamyelocytes) > 1% indicates that a LEFT SHIFT is Present. CBC W/Diff, Automated 39.3 fL Normal 35.1-43.9 [facility] Internal Medicine Work Phone: HIV Screen 4TH GEN W/Confirm Ordered By: Diversity Intern on 01-03-2017 HIV Screen 4TH GEN W/Confirm Non Reactive Normal [facility] Internal Medicine Work Phone: Hep B Surface AntibodiesOrde red By: Diversity Intern on 01-03-2017 HBV surface Ab Qn (S) Reactive Normal [facility] Work Phone: Comment on above: Non Reactive: Incons istent with immunity, less than 10 mIU/mL Reactive: Consistent with immunity, greater than 9.9 mIU/mL Hepatitis B Surface AgOrdere d By: Diversity Intern on 01-03-2017 Hepatitis B Surface Ag Negative Normal [facility] Internal Medicine Work Phone: Comment on above: Performed at: [address] [id number] Director: Baljeet Leiva PhD, Phone: [phone] Hepatitis C AntibodiesOrdere d By: Diversity Intern on 01-03-2017 Hepatitis C Antibodies <0.1 Normal 0.0-0.9 [facility] Internal Medicine Work Phone: Comment on above: Negative: < 0.8 Inde terminate: 0.8 - 0.9 Positive: > 0.9 The CDC recommends that a positive HCV antibody result be followed up with a HCV Nucleic Acid Amplification test (839201). Liver ProfileOrdered By: Mando tem Commercial Fishing Vessel Operator on 01-03-2017 Albumin mass conc 3.7 g/dL Normal 3.4-5.0 [facility]pre[facility] Internal Medicine Work Phone: ALP enzyme act/vol 74 U/L Normal 45-117 [facility] Internal Medicine Work Phone: ALT enzyme act/vol 54 U/L Normal 12-78 [facility] Internal Medicine Work Phone: AST enzyme act/vol 54 U/L Abnormal 15-37 [facility] Internal Medicine Work Phone: Bilirubin mass conc 0.40 mg/dL Normal 0.20-1.00 [facility] Internal Medicine Work Phone: Bilirubin.direct mass conc 0.09 mg/dL Normal 0.00-0.30 [facility] Internal Medicine Work Phone: Globulin Calculated mass conc (S) 4.0 g/dL Abnormal 2.3-3.5 [facility] Internal Medicine Work Phone: Protein mass conc 7.7 g/dL Normal 6.4-8.2 Compre[facility] Internal Medicine Work Phone: Quantiferon TB-GoldOrdered B y: Diversity Intern on 01-03-2017 M. tuberculosis tuberculin stim IFN-g Ql (Bld) Negative Normal [facility] Work Phone: Comment on above: The specimen receive d for QuantiFERON testing was incubatedby the ordering institution. Specific procedures outlinedin our Directory of Services and in the package insert forthe QuantiFERON Gold (In Tube) test must be followed toenable for proper stimulation of cells for the productionof interferon gamma. M. tuberculosis tuberculin stim IFN-g Ql (Bld) Comment Normal [facility] Work Phone: [...] stim IFN-g Ql (Bld) 0.06 {IU/mL} Normal [facility] Work Phone: M. tuberculosis tuberculin stim IFN-g Ql (Bld) > 10.00 Normal [facility] Work Phone: M. tuberculosis tuberculin stim IFN-g Ql (Bld) 0.15 {IU/mL} Normal [facility] Work Phone: M. tuberculosis tuberculin stim IFN-g Ql (Bld) 0.21 {IU/mL} Normal [facility] Work Phone: CBC, EmployeeOrdered By: Mando tem Commercial Fishing Vessel Operator on 04-25-2016 Basophils/100 WBC Auto (Bld) 0.3 [...] mass conc (RBC) 34.1 {g/gl} Normal 32-36 [facility] Internal Medicine Work Phone: MCV Auto Entitic volume (RBC) 87.3 fL Normal 81-99 [facility] Internal Medicine Work Phone: Monocytes/100 WBC Auto (Bld) 8.3 % Normal 0-10 [facility] Internal Medicine Work Phone: Neutrophils/100 WBC Auto (Bld) 60.6 % Normal 47-70 [facility] Internal Medicine Work Phone: Platelet mean volume Auto Entitic volume (Bld) 11.0 fL Normal 6.2-12.0 [facility] Internal Medicine Work Phone: Platelets Auto #/vol (Bld) 235 10*3/uL Normal 150-450 [facility] Internal Medicine Work Phone: RBC Auto #/vol (Bld) 4.33 {M/mm3} Normal 4.2-5.4 [facility] Internal Medicine Work Phone: WBC Auto #/vol (Bld) 6.5 10*3/uL Normal 4.4-11.0 [facility] prehensive Internal Medicine Work Phone: CBC, Employee 38.1 fL Normal 35.1-43.9 [facility] Work Phone: CBC, Employee 4.0 {X10_3/uL} Normal 2.0-7.7 [facility] Work Phone: CBC, Employee 1.92 {X10_3/ul} Normal 0.83-4.51 [facility] Internal [facility] Work Phone: Employee ProfileOrdered By: Diversity Intern on 04-25-2016 Albumin mass conc 3.4 g/dL Normal 3.4-5.0 [facility] Internal Medicine Work Phone: Albumin/Globulin mass ratio 0.9 {RATIO} Normal 0.9-2.4 [facility] Internal Medicine Work Phone: ALT enzyme act/vol 30 U/L Normal 12-78 [facility] Internal Medicine Work Phone: AST enzyme act/vol 42 U/L Abnormal 15-37 [facility] Internal Medicine Work Phone: Bilirubin mass conc 0.40 mg/dL Normal 0.20-1.00 [facility] Internal Medicine Work Phone: Bilirubin.direct mass conc 0.07 mg/dL Normal 0.00-0.30 [facility] Internal Medicine Work Phone: Calcium mass conc 8.7 mg/dL Normal 8.5-10.1 [facility] Internal Medicine Work Phone: Chloride molar conc 109 mmol/L Abnormal 98-107 [facility] Internal Medicine Work Phone: Cholesterol in HDL mass conc 43 mg/dL Normal [facility] Internal Medicine Work Phone: Comment on above: The drugs N-Acetylcy steine and Metamizole may falsely deressthis assay. Reference Range HDL <40 mg/dL Low HDL Cholesterol HDL >or= 60 mg/dL High HDL Cholesterol Cholesterol in LDL mass conc 114 mg/dL Normal 0-130 [facility] Internal Medicine Work Phone: Cholesterol mass conc 180 mg/dL Normal [facility] Work Phone: Comment on above: <200 mg/dL Desirable 200-240 mg/dL Borderline >240 mg/dL High Risk CO2 molar conc 25.0 mmol/L Normal 21.0-32.0 [facility]prehen [facility] Internal [facility] Work Phone: Creatinine mass conc [...] Calc Nicotine Urine Drug ScreenOr dered By: Diversity Intern on 04-25-2016 Nicotine Urine Drug Screen Normal [...] positive results are used. Urinalysis, EmployeeOrdered By: Diversity Intern on 04-25-2016 Urinalysis, Employee Negative Normal Comp [...] Phone: PAP I-G w/rfx hrHPVOrdered B y: Diversity Intern on 02-25-2016 Protein mass conc Comment Normal [...] false-negative reports dooccur. The HPV DNA reflex rosie sheth were not met with this specimenresult therefore, no HPV testing was performed.Performed at: [address], [place] [id number] Director: Starr Hinton MD, Phone: [phone] Satisfactory for pipo coronado. This liquid based Th inPrep(R) pap test was screened withthe use of an image guided system. PAP I-G w/rfx hrHPV . Normal Compr ehensive Internal Medicine Work Phone: Rapid Strep Test, Office ([phone])on 07-03-2015 S. pyogenes Ag EIA Ql (Throat) Negative Normal [facility]; [facility] Work Phone: Rapid Strep Test, Office ([phone])Ordered By: Vance Haddad on 07-03-2015 S. pyogenes Ag IA Ql (Unsp spec) Negative Normal [facility] Work Phone: Throat Culture ([id number])Ordere d By: Diversity Intern on 07-03-2015 Bacteria identified Respiratory culture Nom (Unsp spec) Final report Normal [facility] Work Phone: Comment on above: PATIENT NOT FASTINGP ERFORMED BY: SHAILA Jdguanjia [id number] Hilario ZiptronixSentara Albem[facility] Medical Center [id number] Information: SRC:HILLKaren [id number] Bacteria identified Respiratory culture Nom (Unsp spec) RRF Normal [facility] Work Phone: Comment on above: Routine respiratory jeny PATIENT NOT FASTINGP ERFORMED BY: SHAILA [facility] San[facility] [id number] Information: SRC:HILLKaren [id number] CBC, EmployeeOrdered By: Mando tem Commercial Fishing Vessel Operator on 04-29-2015 Basophils/100 WBC Auto (Bld) 0.1 [...] WBC Auto (Bld) 64.4 % Normal 47-70 [facility] Internal Medicine Work Phone: Platelet mean volume Auto Entitic volume (Bld) 10.4 fL Normal 6.2-12.0 [facility] Internal Medicine Work Phone: Platelets Auto #/vol (Bld) 252 10*3/uL Normal 150-450 [facility] Internal Medicine Work Phone: RBC Auto #/vol (Bld) 4.34 {M/mm3} Normal 4.2-5.4 Co [facility] Internal Medicine Work Phone: WBC Auto #/vol (Bld) 7.6 10*3/uL Normal 4.4-11.0 [facility] Work Phone: CBC, Employee 38.4 fL Normal 35.1-43.9 Comprehensi Internal Medicine Work Phone: CBC, Employee 2.03 {X10_3/ul} Normal 0.83-4.51 Compre [facility] Internal Medicine Work Phone: CBC, Employee 4.9 {X10_3/uL} Normal 2.0-7.7 Compreh ensive Internal Medicine Work Phone: Employee ProfileOrdered By: Diversity Intern on 04-29-2015 Albumin mass conc 3.7 g/dL Normal 3.4-5.0 Compreh ensive Internal Medicine Work Phone: Albumin/Globulin mass ratio 1.0 {RATIO} Normal 0.9-2.4 [facility] Internal Medicine Work Phone: ALT enzyme act/vol 34 U/L Normal 12-78 [facility] Internal Medicine Work Phone: AST enzyme act/vol 40 U/L Abnormal 15-37 [facility] Internal Medicine Work Phone: Bilirubin mass conc 0.40 mg/dL Normal 0.20-1.00 [facility] Work Phone: Bilirubin.direct mass conc 0.09 mg/dL Normal 0.00-0.30 [facility] Work Phone: Calcium mass conc 9.1 mg/dL Normal 8.5-10.1 Compreh ensive Internal Medicine Work Phone: Chloride molar conc 105 mmol/L Normal 98-107 Compr ehensive Internal Medicine Work Phone: Cholesterol in HDL mass conc 49 mg/dL Normal [facility] Work Phone: Comment on above: Reference Range HDL <40 mg/dL Low HDL Cholesterol HDL >or= 60 mg/dL High HDL Cholesterol Cholesterol in LDL mass conc 141 mg/dL Abnormal 0-130 [facility] Work Phone: Cholesterol mass conc 209 mg/dL Abnormal Com prehensive Internal Medicine Work Phone: Comment on above: <200 mg/dL Desirable 200-240 mg/dL Borderline >240 mg/dL High Risk CO2 molar conc 24.0 mmol/L Normal 21.0-32.0 Comprehen sive Internal Medicine Work Phone: Creatinine mass conc 0.68 mg/dL Normal 0.55-1.20 Comp rehensive Internal Medicine Work Phone: Comment on above: Please note revised CREATININE reference range /22/2015. GFR/1.73 sq M predicted among non-blacks MDRD vol rate/area (S/P/Bld) 107 mL/min/{1.73_m2} Normal Compreh ensive Internal Medicine Work Phone: Globulin Calculated mass conc (S) 3.6 g/dL Abnormal 2.3-3.5 [facility] Work [...] Internal Medicine Work Phone: Urinalysis, EmployeeOrdered By: Diversity Intern on 04-29-2015 Urinalysis, Employee Yellow Normal Comp rehensive Internal Medicine Work Phone: Urinalysis, Employee Negative Normal Comp rehensive Internal Medicine Work Phone: Urinalysis, Employee Sl. Cloudy Normal Comp rehensive Internal Medicine Work Phone: Urinalysis, Employee Normal Normal Comp rehensive Internal Medicine Work Phone: Urinalysis, Employee 8.0 1 Normal 5.0 - 8.0 Comp rehensive Internal Medicine Work Phone: Urinalysis, Employee 1.010 1 Normal 1.002-1 .03 0 [facility] Work Phone: PAP I-G w/rfx hrHPVOrdered B y: Diversity Intern on 02-18-2015 PAP I-G w/rfx hrHPV Comment Normal Compr [facility] Internal Medicine Work Phone: Comment on above: [...] therefore, no HPV testing was performed.Performed at: [address] [id number] Director: Graham Mejia MD, Phone: [phone] Valente Kyle, Cyto technologist (ASCP) Satisfactory for pipo luation. No endocervical component is identified. NEGATIVE FOR INTRAEP ITHELIAL LESION AND MALIGNANCY. PAP I-G w/rfx hrHPV . Normal [facility] Internal Medicine Work Phone: Rapid Flu ([phone] x 2)Ordered By: Spring Elizabeth on 08-06-2014 FLUAV Ag IA Ql (Throat) Positive Abnormal [facility] Work Phone: Rapid Flu ([phone] x 2)on 07-15 FLUAV Ag IA Ql [...] Auto #/vol (Bld) 7.0 10*3/uL Normal 4.4-11.0 [facility] prehensive Internal Medicine Work Phone: CBCEM 39.8 [...] /ul Abnormal [facility] Work Phone: [id number] By: System Man ager on 01-24-2014 PAPIG3 Comment Normal [facility] Work Phone: Comment on above: Richard James, Household Coordinator (ASCP) This liquid based Th inPrep(R) pap [...] est detects thirteen high-risk types(16/18/31/33/35/39/45/51/52/56/58/59/68) withoutdifferentiation.Performed at: [address] [id number] Director: Graham Mejia MD, Phone: [phone] at: =[address] [id number] Director: Michaelle Mejia MD, Phone: [phone] CUSPOrdered By: System Manag er on 05-24-2013 CUSP See Note Normal [...] Auto #/vol (Bld) 4.4 3/uL Normal 2.0-7.7 [facility] Work Phone: Neutrophils/100 WBC Auto (Bld) 69.3 % Normal 47-70 [facility] Work Phone: Platelet mean volume Auto Entitic volume (Bld) 8.9 fL Normal 6.5-12.0 [facility] Internal Medicine Work Phone: Platelets Auto #/vol (Bld) 222 10*3/uL Normal 150-450 [facility] Internal Medicine Work Phone: RBC Auto #/vol (Bld) 4.51 {M/mm3} Normal 4.2-5.4 [facility] Work Phone: WBC Auto #/vol (Bld) 6.4 10*3/uL Normal 4.4-11.0 [facility] Internal Medicine Work Phone: COMP METABOLICOrdered By: Arvind stem Commercial Fishing Vessel Operator on 01-28-2011 Albumin mass conc 3.8 g/dL Normal 3.4-5.0 Compre[facility] Internal Medicine Work Phone: Albumin/Globulin mass ratio 1.0 {RATIO} Normal 0.9-2.4 [facility] Internal Medicine Work Phone: ALP enzyme act/vol 67 U/L Normal 50-136 [facility] Internal Medicine Work Phone: ALT enzyme act/vol 28 U/L Normal 12-78 [facility] Internal Medicine Work Phone: Anion gap 3 molar conc 9 mmol/L Normal 5-15 [facility] Internal Medicine Work Phone: AST enzyme act/vol 33 U/L Normal 15-37 [facility] Internal Medicine Work Phone: Bilirubin mass conc 0.40 mg/dL Normal 0.00-1.00 Compr [facility] Internal Medicine Work Phone: Calcium mass conc 9.4 mg/dL Normal 8.5-10.1 Compre[facility] Internal Medicine Work Phone: Chloride molar conc 105 mmol/L Normal 98-107 [facility] Internal Medicine Work Phone: CO2 molar conc 27.0 mmol/L Normal 21.0-32.0 Comprehen [facility] Internal Medicine Work Phone: Creatinine mass conc [...] ensive Internal Medicine Work Phone: VIT D,25 [id number] By: Sy stem Commercial Fishing Vessel Operator on 01-28-2011 VIT D,25 [id number] 32.5 ng/mL Normal 32.0-100.0 Comprehens clemente Internal Medicine Work Phone: Comment on above: Recent studies consi suyapa the lower limit of 32.0 ng/mL to kourtney threshold for optimal health.Que PRINCE. J Nutr. 2004;135(2):317-22.Performed at: [address] [place] [id number] Director: Rajani Hay MD, Phone: [phone] ANGELINA CULTURE-OTHER ([id number])Ord ered By: Diversity Intern on 08-31-2010 Bacteria identified Respiratory culture Nom (Unsp spec) Final report Normal [facility] Work Phone: Comment on above: PATIENT NOT FASTINGP ERFORMED BY: [address] [id number] Information: SRC:THRKaren [id number] Bacteria identified Respiratory culture Nom (Unsp spec) BETAGA Normal [facility] Work Phone: Comment on above: Beta hemolytic Strep tococcus, group AHeavy growthPenicillin continues to be the drug of choice for infectionscaused by beta hemolytic streptococci in groups A,B,C and G.No penicillin resistance has been described among theseorganisms and surveillance for emerging resistance is notrecommended. (JEROD Aguilar. Clinical Microbiology Newsletter,1993; FIONA Sanchez et al. Diagnostic Microbiology andInfectious Disease, January,.) PATIENT NOT FASTINGP ERFORMED BY: [address] [id number] Information: SRC:THRKaren [id number] ANCA [id number] By: Giovanni estrella Commercial Fishing Vessel Operator on 01-15-2010 ANCA [id number] <1:20 Normal [facility] Work Phone: Comment on above: The presence of posi tive fluorescence exhibiting P-ANCA orC-ANCA patterns alone is not specific for the diagnosis ofWegener's Granulomatosis (WG) or microscopic polyangiitis.Decisions about treatment should not be used solely on ANCAIFA results. The International ANCA Group Consensusrecommends follow up testing of positive sera with both MI-3 and MPO-ANCA enzyme immunoassays. As many as 5% serumsamples are positive only by EIA. Ref. AM J Clin Vyrtiz0936;111:507-513. The atypical pANCA p attern has been observed in asignificant percentage of patients with ulcerative colitis,primary sclerosing cholangitis and autoimmune hepatitis.Performed at: [address] [place] [id number] Director: Rajani Hay MD SINUS/FACIAL BONEOrdered By: Diversity Intern on 01-15-2010 SINUS/FACIAL BONE See Note Normal Compreh ensive Internal Medicine Work Phone: Comment on above: Exam Number: [id number] CLINICAL:29 year old female with sinusitis, [...] withoutdemonstrated acute or chronic sinusitis. Reported By: ADELA KILGORE M.D. B.pertussisB.parapertussis P CROrdered By: Diversity Intern on 10-22-2009 B. parapertussis DNA ROBERT+probe Ql (Unsp spec) Negative Normal [facility] Work Phone: Comment on above: .This test was devel opLemonwise and its performance characteristics determinedby Hopper. It has not been cleared or approved by theU.S. Food and Drug Administration. The FDA has determined that suchclearance or approval is not necessary. This test is used for clinicalpurposes. It should not be regarded as investigational or research. B. pertussis DNA ROBERT+probe Ql (Unsp spec) Negative Normal [facility] Work Phone: Rapid Strep Test, Office ([phone])Ordered By: Jennifer Guevara on 10-22-2009 S. pyogenes Ag EIA Ql (Throat) Negative Normal [facility]; [facility] Work Phone: S. pyogenes Ag IA Ql (Unsp spec) Negative Normal [facility] Work Phone: Upper Respiratory CultureOrd ered By: Diversity Intern on 10-22-2009 Bacteria identified Respiratory culture Nom (Unsp spec) Final report Normal [facility] Work Phone: Bacteria identified Respiratory culture Nom (Unsp spec) RRF Normal [facility] Work Phone: Comment on above: Routine respiratory jeny CBC, EMPLOYEEOrdered By: Mando tem Commercial Fishing Vessel Operator on 08-22-2008 Erythrocyte distribution width Auto Ratio [...] enzyme act/vol 89 U/L Normal 50-136 Compre hensive Internal Medicine Work Phone: AST enzyme act/vol 33 U/L Normal 15-37 Compre hensive Internal Medicine Work Phone: Bilirubin mass conc 0.11 mg/dL Normal 0.00-1.00 Compr ehensive Internal Medicine [...] for patient's is the eGFRmultiplied by 1.212. [facility] Laboratory uses the abbreviated Modification of Diet [...] Disease W/O Kidney Disease>/= 90 Stage One Hajngw75 - 89 Stage Two Suspect Decreased GFR30 [...] Work Phone: EMP URINALYSISOrdered By: Arvind stem Commercial Fishing Vessel Operator on 08-22-2008 Protein mass conc SeeNote Normal [...] Phone: BLOOD TYPE PTOrdered By: Mando tem Commercial Fishing Vessel Operator on 05-11-2007 ABO and Rh group Nom [...] WBC Auto (Bld) 5.5 % Normal 0-10 [facility] Work Phone: Neutrophils/100 WBC Auto (Bld) 79.4 % Abnormal 47-70 [facility] Work Phone: Platelet mean volume Auto Entitic volume (Bld) 8.6 fL Normal 6.5-12.0 [facility] Work Phone: Platelets Auto #/vol (Bld) 282 10*3/uL Normal 150-450 [facility] Work Phone: RBC Auto #/vol (Bld) 4.55 {M/mm3} Normal 4.2-5.4 [facility] Work Phone: WBC Auto #/vol (Bld) 11.6 10*3/uL Abnormal 4.4-11.0 [facility] Work Phone: HBsAg [id number] By: Diversity Intern on 05-11-2007 HBsAg 6510 SeeNote Normal [facility] Work Phone: Comment on above: Result: Negative Per formed At: [address] [place] [place], [place] [id number] RUBELLA 6197Ordered By: Syst em Commercial Fishing Vessel Operator on 05-11-2007 RUBELLA 6197 89 {IU/mL} Normal Comprehens[facility] e [facility] Work Phone: Comment on above: Non-immune <5 Equivo geri 5 - 9 Immune >9 ADAMA-D [id number] By: Syst em Commercial Fishing Vessel Operator on 01-31-2007 Nuclear Ab Ql (S) 20 U/mL Normal 0-99 Compreh ensive [facility] Work Phone: Comment on above: Negative <100 Equivo geri 100 - 120 Positive >120 ANCA [id number] By: Hallee m Commercial Fishing Vessel Operator on 01-31-2007 ANCA [id number] <1:20 Normal [facility] Work Phone: [...] up testing of positive sera with both MI-3 and MPO-ANCA enzyme immunoassays. As many as 5% serumsamples are positive only by EIA. Ref. AM J Clin [id number];111:507-513. ASO 6031Ordered By: Magda velasquez on 01-31-2007 ASO 6031 69.6 {IU/mL} Normal 0.0-200.0 [facility] Work Phone: CBCOrdered By: System NoteSick r on 01-31-2007 Erythrocyte distribution width Auto Ratio (RBC) 13.1 % Normal 11.6-14.6 [facility] Work Phone: Hematocrit Auto Volume Fraction (Bld) 38.2 % Normal 37-47 [facility] Work Phone: Hemoglobin mass conc (Bld) 13.2 g/dL Normal 12.0-16.0 [facility] Work Phone: MCH Auto Entitic mass (RBC) 28.5 pg Normal 27.0-32.0 [facility] Work Phone: MCHC Auto mass conc (RBC) 34.5 g/dL Normal 32-36 [facility] Work Phone: MCV Auto Entitic volume (RBC) 82.7 fL Normal 81-99 [facility] Work Phone: Platelets Auto #/vol (Bld) 231 10*3/uL Normal 150-450 [facility] Work Phone: RBC Auto #/vol (Bld) 4.62 {M/mm3} Normal 4.2-5.4 [facility]: WBC Auto #/vol (Bld) 3.9 10*3/uL Abnormal 4.4-11.0 [facility] Work Phone: COMP CH50 1941Ordered By: Sy stem Commercial Fishing Vessel Operator on 01-31-2007 COMP CH50 1941 48 U/mL Normal 22-60 Comprehens [facility] Internal Medicine Work Phone: COMP METABOLICOrdered By: Sy stem Commercial Fishing Vessel Operator on 01-31-2007 Albumin mass conc 3.8 g/dL Normal 3.4-5.0 [facility] Work Phone: Albumin/Globulin mass ratio 1.1 {RATIO} Normal 0.9-2.4 [facility] Work Phone: ALP enzyme act/vol 81 U/L Normal 50-136 [facility] Work Phone: ALT enzyme act/vol 36 [iU]/L Normal 30-65 [facility] Work Phone: Anion gap 3 molar conc 9 mmol/L Normal 5-15 [facility] Work Phone: AST enzyme act/vol 37 U/L Normal 15-37 [facility] Work Phone: Bilirubin mass conc 0.33 mg/dL Normal 0.00-1.00 [facility] Internal Medicine Work Phone: Calcium mass conc 8.7 mg/dL Normal 8.5-10.1 [facility]: Chloride molar conc 103 mmol/L Normal 98-107 [facility] Internal Medicine Work Phone: CO2 molar conc [...] Internal Medicine Work Phone: CRYOGLOB [id number] By: s tem Commercial Fishing Vessel Operator on 01-31-2007 CRYOGLOB 1594 Comment Normal Comprehensi ve [facility] Medicine Work Phone: Comment on above: None Detected at 72 hours ESROrdered By: System Manage r on 01-31-2007 ESR Velocity (Bld) 19 mm/h Normal 0-20 Compre hens[facility] Work Phone: HBsAg [id number] By: Diversity Intern on 01-31-2007 HBsAg 6510 SeeNote Normal [facility] Work Phone: Comment on above: Result: Negative Per formed At: [facility] [id number] [place], [place] [id number] RA LATEX 6502Ordered By: Sys tem Commercial Fishing Vessel Operator on 01-31-2007 RA LATEX 6502 4.6 {IU/mL} Normal 0.0-13.9 [facility] Work Phone: dsDNA [place] [id number] By: Sy stem Commercial Fishing Vessel Operator on 01-31-[place] [address] 7 U/mL Normal 0-99 [facility] Work Phone: Comment on above: Negative <100 Equivo geri 100 - 120 Positive >120 SCOLIOSIS,STANDING ONLYOrder ed By: Diversity Intern on 12-31-2006 SCOLIOSIS,STANDING ONLY See Note Normal [facility] Work Phone: Comment on above: Exam Number: [id number] SCOLIOSIS SCREEN HISTORYBack pain. History of scoliosis. TECHNIQUEStanding AP views of the thoracic and lumbar spine were obtained. FINDINGSThere is curvature of the lumbar spine to the right. The degree ofcurvature is estimated at 32 degrees. There is curvature of the upperlumbar spine to the left measured at 15 degrees. Reported By: ADELA STEVEN M.D. CBCOrdered By: System NoteSick r on 11-21-2006 Erythrocyte distribution width Auto Ratio (RBC) 13.2 % Normal 11.6-14.6 [facility] Work Phone: Hematocrit Auto Volume Fraction (Bld) 34.7 % Abnormal 37-47 [facility] Work Phone: Hemoglobin mass conc (Bld) 11.7 g/dL Abnormal 12.0-16.0 [facility] Work Phone: MCH Auto Entitic mass (RBC) 30.0 pg Normal 27.0-32.0 [facility] Work Phone: MCHC Auto mass conc (RBC) 33.7 g/dL Normal 32-36 [facility] Work Phone: MCV Auto Entitic volume (RBC) 89.1 fL Normal 81-99 [facility] Work Phone: Platelets Auto #/vol (Bld) 274 10*3/uL Normal 150-450 [facility] Work Phone: RBC Auto #/vol (Bld) 3.89 {M/mm3} Abnormal 4.2-5.4 [facility] Work Phone: WBC Auto #/vol (Bld) 5.5 10*3/uL Normal 4.4-11.0 Com [facility] Work Phone: CBCOrdered By: System Manage r on 11-06-2006 Erythrocyte distribution width Auto Ratio (RBC) 12.8 % Normal 11.6-14.6 [facility] Work Phone: Hematocrit Auto Volume Fraction (Bld) 27.7 % Abnormal 37-47 [facility] Work Phone: Hemoglobin mass conc (Bld) 9.6 g/dL Abnormal 12.0-16.0 [facility] Work Phone: MCH Auto Entitic mass (RBC) 30.5 pg Normal 27.0-32.0 [facility] Work Phone: MCHC Auto mass conc (RBC) 34.5 g/dL Normal 32-36 [facility] Work Phone: MCV Auto Entitic volume (RBC) 88.4 fL Normal 81-99 [facility] Work Phone: Platelets Auto #/vol (Bld) 320 10*3/uL Normal 150-450 [facility] Work Phone: RBC Auto #/vol (Bld) 3.13 {M/mm3} Abnormal 4.2-5.[address] [facility] Work Phone: WBC Auto #/vol (Bld) 7.2 10*3/uL Normal 4.4-11.0 [facility] Work Phone: CBCOrdered By: System NoteSick r on 10-30-2006 Erythrocyte distribution width Auto Ratio (RBC) 12.6 % Normal 11.6-14.6 [facility] Work Phone: Hematocrit Auto Volume Fraction (Bld) 22.6 % Abnormal 37-47 [facility] Work Phone: Hemoglobin mass conc (Bld) 7.7 g/dL Abnormal 12.0-16.0 [facility] Work Phone: MCH Auto Entitic mass (RBC) 30.0 pg Normal 27.0-32.0 [facility] Work Phone: MCHC Auto mass conc (RBC) 34.2 g/dL Normal 32-36 [facility] Work Phone: MCV Auto Entitic volume (RBC) 87.8 fL Normal 81-99 [facility] Work Phone: Platelets Auto #/vol (Bld) 274 10*3/uL Normal 150-450 [facility] Work Phone: RBC Auto #/vol (Bld) 2.58 {M/mm3} Abnormal 4.2-5.4 [facility] Work Phone: WBC Auto #/vol (Bld) 10.7 10*3/uL Normal 4.4-11.0 [facility] Work Phone: FACVL [id number] By: Syst em Commercial Fishing Vessel Operator on 10-30-2006 FACVL [id number] Comment Normal [facility] Work Phone: Comment on above: Genetic counselors a re available for health care providersto discuss results at [phone]. .Methodology:DNA analysis of the Factor V gene [...] Ph.D.Sarah Eugene, Ph.D.Layla De Jesus, Ph.D.Performed At: [facility] [id number] [facility], [place] [id number] Result: Negative (no mutation found) .Factor V [...] in the workup for venous thrombosis include [id number] mutation in the factor II (prothrombin) gene,protein S and C deficiency, and antithrombin deficiencies.Anticardiolipin antibody and lupus anticoagulant analysismay be appropriate for certain patients, as well ashomocysteine levels. .Contact your local [facility] for information on how to orderadditional testing if desired. HHOrdered By: Diversity Intern on 10-30-2006 Hematocrit Auto Volume Fraction (Bld) 24.9 % Abnormal 37-47 [facility] Work Phone: Hemoglobin mass conc (Bld) 8.6 g/dL Abnormal 12.0-16.0 [facility] Work Phone: BLOOD TYPE PTOrdered By: Sys tem Commercial Fishing Vessel Operator on 10-29-2006 ABO and Rh group Nom (Bld) A POSITIVE Normal [facility] Work Phone: CBCOrdered By: System Manage r on 10-29-2006 Erythrocyte distribution width Auto Ratio (RBC) 12.7 % Normal 11.6-14.6 [facility] Work Phone: Hematocrit Auto Volume Fraction (Bld) 34.3 % Abnormal 37-47 [facility] Work Phone: Hemoglobin mass conc (Bld) 11.8 g/dL Abnormal 12.0-16.0 [facility] Work Phone: MCH Auto Entitic mass (RBC) 30.4 pg Normal 27.0-32.0 [facility] Work Phone: MCHC Auto mass conc (RBC) 34.4 g/dL Normal 32-36 [facility] Work Phone: MCV Auto Entitic volume (RBC) 88.3 fL Normal 81-99 [facility] Work Phone: Platelets Auto #/vol (Bld) 398 10*3/uL Normal 150-450 [facility] Work Phone: RBC Auto #/vol (Bld) 3.88 {M/mm3} Abnormal 4.2-5.[address] [facility] Work Phone: WBC Auto #/vol (Bld) 8.4 10*3/uL Normal 4.4-11.0 Com prehensive [facility] Work Phone: PRO TIMEOrdered By: Magda velasquez on 10-29-2006 INR Coag RelTime (PPP) 1.0 {INR} Normal Co [facility] Work Phone: Prothrombin time (PT) Coag time (PPP) 12.7 s Normal 11.7-13.3 [facility] Work Phone: PROD CONCOrdered By: Diversity Intern on 10-29-2006 PROD CONC Normal [facility] Work Phone: Comment [...] time (Bld) 31.5 s Normal 24.6-36.6 Comp rehensive [facility] Work Phone: CH/GC DNA [id number] By: Anai ystem Commercial Fishing Vessel Operator on 10-26-2006 Protein mass conc SeeNote Normal Compreh ensive [facility] Work Phone: Comment on above: Result: Negative Lyubov t valid for male urethral and female endocervicalspecimens only.Performed At: [facility] [place], [place] [id number] CH/GC DNA [id number] SeeNote Normal Comprehen sive [facility] Work Phone: Comment on above: Result: Negative BLOOD TYPE PTOrdered By: Sys tem Commercial Fishing Vessel Operator on 10-17-2006 ABO and Rh group Nom (Bld) A POSITIVE Normal [facility] Work Phone: CBCOrdered By: System Manage r on 10-17-2006 Erythrocyte distribution width Auto Ratio (RBC) 13.2 % Normal 11.6-14.6 [facility] Work Phone: Hematocrit Auto Volume Fraction (Bld) 38.1 % Normal 37-47 [facility] Work Phone: Hemoglobin mass conc (Bld) 13.3 g/dL Normal 12.0-16.0 [facility] Work Phone: MCH Auto Entitic mass (RBC) 31.1 pg Normal 27.0-32.0 [facility] Work Phone: MCHC Auto mass conc (RBC) 35.0 g/dL Normal 32-36 [facility] Work Phone: MCV Auto Entitic volume (RBC) 89.0 fL Normal 81-99 [facility] Work Phone: Platelets Auto #/vol (Bld) 228 10*3/uL Normal 150-450 [facility] Work Phone: RBC Auto #/vol (Bld) 4.28 {M/mm3} Normal 4.2-5.4 [facility] Work Phone: WBC Auto #/vol (Bld) 13.6 10*3/uL Abnormal 4.4-11.0 [facility] Work Phone: TWIN PLACOrdered By: Diversity Intern on 10-17-2006 TWIN PLAC Normal [facility] Work Phone: Comment [...] cord: Three blood vessels, no pathologic diagnosis. SJ:collin 10/19/06 COMMENT Blood clot is noted in [...] identified in the specimen or the container. Dietitian Consultant sections are submitted in 11 cassettes as [...] - blood clot within the membrane. / LUPIS:omar 10/18/06 TC:2 REPORT SIGNED: NANCY GUERRA 10/19/06 AFP TETRA [id number] By: Anai sandersontem Commercial Fishing Vessel Operator on 09-12-[place] [address] m[IU]/mL Normal [facility]prehens [facility] Work Phone: AFP TETRA [id number] Twins Normal Comprehen sive [facility] Work Phone: AFP TETRA [id number] 1896 1 Normal [facility]pre[facility] s[facility] Work Phone: AFP TETRA 08965 SeeNote Normal Comprehen sive [facility] Work Phone: Comment on above: Result: Result: See interpre tation. Result: *Screen Nega tive* Result: As provided AFP TETRA [id number] 1:4128 Normal [facility]prehen s[facility] Work Phone: AFP TETRA 83847 2.59 1 Normal [facility]pre[facility] s[facility] Work Phone: AFP TETRA 81116 202.72 pg/mL Normal Compreh ensive [facility] Work Phone: AFP TETRA 45359 1060 1 Normal [facility] Work Phone: AFP TETRA 10438 44352 1 Normal [facility]pre[facility] s[facility] Work Phone: AFP TETRA 21198 1.94 1 Normal [facility] s[facility] Work Phone: AFP TETRA 35892 17.0 {WEEKS} Normal Compreh ensive [facility] Work Phone: AFP TETRA 86034 1.60 1 Normal [facility]pre[facility] s[facility] Work Phone: AFP TETRA 02251 7.70 ng/mL Normal [facility]pre[facility] s[facility] Work Phone: AFP TETRA 83013 61.6 ng/mL Normal [facility]pre[facility] Work Phone: AFP TETRA 29128 No Normal Comprehen s[facility] Work Phone: AFP TETRA 54285 1.27 1 Normal [facility]pre[facility] s[facility] Work Phone: AFP TETRA [id number] Comment Normal Comprehen sive [facility] Work Phone: Comment on above: Claire logan, Ph.D., [facility] Genetics Relay Telegrapher .References: Available Upon Request. .Multiples Of Median Cutoffs Abbreviation Definitions For AFP Elevations IDD- Insulin Dep DiabetesSingleton 2.5 Black 2.8 OSBR- Open Spina BifidaIDD 2.0 Twins 4.5 RiskDSR Cutoff 1:270 DSR- Down Syndrome RiskT18 Cutoff 1:100 T18- Trisomy 18 .Down Syndrome and Trisomy 18 screening are consideredInvestigational .For further inquiries contact [facility] Servicesat [phone].Performed At: [facility] [id number] [facility], [place] [id number] Interpretation: Scre en NegativeThis result is screen [...] least 50%based on triple screen data. The [place] College ofObstetricians and Gynec[employer] recommends amniocentesis beoffered to women age 35 and older.Recalculations are not recommended when gestational datingby LMP and ultrasound are within 10 days. AFP TETRA 90097 24.3 {YEARS} Normal Compreh ensive [facility] Work Phone: CULTURE, URINEOrdered By: [employer] stem Commercial Fishing Vessel Operator on 08-03-2006 Bacteria identified Cx Nom (U) See Note Normal [facility] Work Phone: Comment on above: Possible Lactobacill us species. COLONY COUNT 80,000-100,000 ORGANISM 1: GRAM POSITIVE HE BLOOD TYPE PTOrdered By: Mando tem Commercial Fishing Vessel Operator on 07-04-2006 ABO and Rh group Nom [...] WBC Auto (Bld) 76.3 % Abnormal 47-70 [facility] Work Phone: Platelet mean volume Auto Entitic volume (Bld) 8.5 fL Normal 6.5-12.0 [facility] Work Phone: Platelets Auto #/vol (Bld) 252 10*3/uL Normal 150-450 [facility] Work Phone: RBC Auto #/vol (Bld) 4.38 {M/mm3} Normal 4.2-5.4 Co m[facility] Work Phone: WBC Auto #/vol (Bld) 8.6 10*3/uL Normal 4.4-11.0 Com prehens[facility] Work Phone: CF PROF [id number] By: Arvind stem Commercial Fishing Vessel Operator on 07-04-2006 CF PROF [id number] . Normal Comprehens c[facility]e [facility] Work Phone: Comment on above: MOLECULAR ANALYSIS R EPORT HAS BEEN MAILED CULTURE, URINEOrdered By: Sy stem Commercial Fishing Vessel Operator on 07-04-2006 Bacteria identified Cx Nom (U) See Note Normal [facility] Work Phone: Comment on above: COLONY COUNT 50,000- 80,000 ORGANISM 1: MIXED GRAM POSITIVE ORGANISMS HBsAg 6510Ordered By: Diversity Intern on 07-04-2006 HBsAg 6510 SeeNote Normal [facility] Work Phone: Comment on above: Result: NEGATIVE NEG ATIVE Result: NONREACTIVE Result: NON REACTIVE NON REACTIVE RUBELLA 6197Ordered By: Syst em Commercial Fishing Vessel Operator on 07-04-2006 RUBELLA 6197 88 1 Normal Comprehensiv e [facility] Work Phone: Comment on above: Rubella antibodies, IgG 88 IU/ML Non-immune <5 Equivocal 5 - 10 Immune >10 VIAB [id number] By: Diversity Intern on 07-04-2006 VIAB 03744 < 1.00 Normal [facility] Work Phone: Comment on above: <1.00 Vital Signs Date Time Vital Sign Value Performing Clinician Facility 04-28-2023 09:10-0400 Body height 166.37 cm [facility]; [facility] Work Phone: 04-28-2023 09:10-0400 Body mass index (BMI) [Ratio] 36.4 kg/m2 [facility]; [facility] Work Phone: 04-28-2023 09:10-0400 Body surface area Derived from formula 2.08 m2 [facility]; [facility] Work Phone: 04-28-2023 09:10-0400 Body temperature 97.2 [degF] [facility]; [facility] Work Phone: 04-28-2023 09:10-0400 Body weight 100.76 kg [facility]; [facility] Work Phone: 04-28-2023 09:10-0400 Diastolic blood pressure 72 mm[Hg] [facility]; [facility] Work Phone: Comment on above: Patient Position: Sitting; Cuff Location : Left Arm; Cuff Size: Standard 04-28-2023 09:10-0400 Heart rate 95 /min [facility]; [facility] Work Phone: Comment on above: Pattern: Regular 04-28-2023 09:10-0400 Respiratory rate 16 /min [facility]; [facility] Work Phone: Comment on above: Pattern: Unlabored 04-28-2023 09:10-0400 SaO2% (BldA) [Mass fraction] 97 % [facility]; [facility] Work Phone: Comment on above: Room air 04-28-2023 09:10-0400 Systolic blood pressure 120 mm[Hg] [facility]; [facility] Work Phone: Comment on above: Patient Position: Sitting; Cuff Location : Left Arm; Cuff Size: Standard 02-27-2023 16:13-0400 Body height 166.37 cm Yareli Joirb [facility]; [facility] Work Phone: 02-27-2023 16:13-0400 Body mass index (BMI) [Ratio] 35.56 kg/m2 Yareli Slarb [facility]; [facility] Work Phone: 02-27-2023 16:13-0400 Body surface area Derived from formula 2.06 m2 Yareli Slarb [facility]; [facility] Work Phone: 02-27-2023 16:13-0400 Body temperature 97.4 [degF] Yareli Slarb PRESENTATION TEAM MEMBER [facility]; [facility] Work Phone: Comment on above: Method: Temporal 02-27-2023 16:13-0400 Body weight 98.43 kg Yareli Slarb [facility]; [facility] Work Phone: 02-27-2023 16:13-0400 Diastolic blood pressure 80 mm[Hg] Yareli Slarb PRESENTATION TEAM MEMBER [facility]; [facility] Work Phone: Comment on above: Patient Position: Sitting; Cuff Location : Left Arm; Cuff Size: Standard 02-27-2023 16:13-0400 Heart rate 103 /min Yareli Slarb PRESENTATION TEAM MEMBER [facility]; [facility] Work Phone: Comment on above: Pattern: Regular 02-27-2023 16:13-0400 Respiratory rate 15 /min Yareli Slarb PRESENTATION TEAM MEMBER [facility]; [facility] Work Phone: Comment on above: Pattern: Unlabored 02-27-2023 16:13-0400 SaO2% (BldA) [Mass fraction] 98 % Yareli Slarb PRESENTATION TEAM MEMBER [facility]; [facility] Work Phone: Comment on above: Room air 02-27-2023 16:13-0400 Systolic blood pressure 126 mm[Hg] Yareli Slarb PRESENTATION TEAM MEMBER [facility]; [facility] Work Phone: Comment on above: Patient Position: Sitting; Cuff Location : Left Arm; Cuff Size: Standard 01-30-2023 09:46-0400 Body height 166.37 cm [facility]; [facility] Work Phone: 01-30-2023 09:46-0400 Body mass index (BMI) [Ratio] 35.89 kg/m2 [facility]; [facility] Work Phone: 01-30-2023 09:46-0400 Body surface area Derived from formula 2.07 m2 [facility]; [facility] Work Phone: 01-30-2023 09:46-0400 Body temperature 97.9 [degF] [facility]; [facility] Work Phone: 01-30-2023 09:46-0400 Body weight 99.34 kg Steve Jose Maria PRESENTATION TEAM MEMBER [facility]; [facility] Work Phone: 01-30-2023 09:46-0400 Diastolic blood pressure 78 mm[Hg] [facility]; [facility] Work Phone: Comment on above: Patient Position: Sitting; Cuff Location : Left Arm; Cuff Size: Standard 01-30-2023 09:46-0400 Heart rate 85 /min [facility]; [facility] Work Phone: Comment on above: Pattern: Regular 01-30-2023 09:46-0400 SaO2% (BldA) [Mass fraction] 98 % [facility]; [facility] Work Phone: Comment on above: Room air 01-30-2023 09:46-0400 Systolic blood pressure 130 mm[Hg] [facility]; [facility] Work Phone: Comment on above: Patient Position: Sitting; Cuff Location : Left Arm; Cuff Size: Standard 01-19-2023 09:13-0400 Body height 166.37 cm Rachel Lo DO Work Phone: Comprehensive [...] verbal agreement to proceed. 01-19-2023 09:13-0400 Body surface area Derived from formula 2.07 [...] verbal agreement to proceed. 01-19-2023 09:13-0400 Body weight 99.72 kg Rachel Lo DO [...] give verbal agreement to proceed. 01-19-2023 09:13-0400 Diastolic blood pressure 82 mm[Hg] Rachel Lo [...] 01-19-2023 09:13-0400 Heart rate 83 /min Rachel Lo DO Work Phone: [facility] [...] 11:55-0400 Body height 166.37 cm Yareli Slarb [employer]ENTATION [employer] [facility] Work Phone: 01-04-2023 11:55-0400 Body mass index (BMI) [Ratio] 36.42 kg/m2 Yareli Slarb [employer]ENTATION [employer] [facility]; [facility] Work Phone: 01-04-2023 11:55-0400 Body surface area Derived from formula 2.08 m2 Yareli Slarb PRESENTATION TE[employer] [facility]; [facility] Work Phone: 01-04-2023 11:55-0400 Body temperature 97.6 [degF] Yareli Slarb [employer]ENTATION [employer] [facility]; [facility] Work Phone: Comment on above: Method: Temporal 01-04-2023 11:55-0400 Body weight 100.81 kg Yareli Slarb [employer]ENTATION [employer] [facility]; [facility] Work Phone: 01-04-2023 11:55-0400 Diastolic blood pressure 82 mm[Hg] Yareli Slarb [employer]ENTATION TE[employer] [facility]; [facility] Work Phone: Comment on above: Patient Position: Sitting; Cuff Location : Left Arm; Cuff Size: Standard 01-04-2023 11:55-0400 Heart rate 110 /min Yareli Slarb [employer]ENTATION [employer] [facility]; [facility] Work Phone: Comment on above: Pattern: Regular 01-04-2023 11:55-0400 Respiratory rate 16 /min Yareli Slarb [employer]ENTATION [employer] [facility]; [facility] Work Phone: Comment on above: Pattern: Unlabored 01-04-2023 11:55-0400 SaO2% (BldA) [Mass fraction] 98 % Yareli Joirb [employer]ENTATION TE[employer] [facility]; [facility] Work Phone: Comment on above: Room air 01-04-2023 11:55-0400 Systolic blood pressure 128 mm[Hg] Yareli Slarb [employer]ENTATION TE[employer] [facility]; [facility] Work Phone: Comment on above: Patient Position: Sitting; Cuff Location : Left Arm; Cuff Size: Standard 12-15-2022 11:27-0400 Body weight 101.72 kg Rachel Lo DO Work Phone: [facility]; [facility] Work Phone: Comment on above: partial vitals with virtual visit 12-15-2022 11:27-0400 Diastolic blood pressure 82 mm[Hg] Rachel Pateon DO Work Phone: [facility]; [facility] Work Phone: Comment on above: Patient Position: Sitting partial vitals with virtual visit 12-15-2022 11:27-0400 Heart rate 76 /min Rachel oL DO Work Phone: [facility]; [facility] Work Phone: Comment on above: Pattern: Regular partial vitals with virtual visit 12-15-2022 11:27-0400 Systolic blood pressure 132 mm[Hg] Rachel Lo DO Work Phone: [facility]; [facility] Work Phone: Comment on above: Patient Position: Sitting partial vitals with virtual visit 11-25-2022 08:56-0400 Body height 166.37 cm Yareli Slarb PRESENTATION TE[employer]BER [facility]; [facility] Work Phone: 11-25-2022 08:56-0400 Body mass index (BMI) [Ratio] 38.06 kg/m2 Yareli Joirb [employer]ENTATION TE[employer]BER [facility]; [facility] Work Phone: 11-25-2022 08:56-0400 Body surface area Derived from formula 2.12 m2 Yareli Tamezrb PRESENTATION TE[employer] MEMBER [facility]; [facility] Work Phone: 11-25-2022 08:56-0400 Body temperature 97.3 [degF] Yareli Tamezrb PRESENTATION TE[employer] MEMBER [facility]; [facility] Work Phone: Comment on above: Method: Temporal 11-25-2022 08:56-0400 Body weight 105.35 kg Yareli Tamezrb PRESENTATION TE[employer]BER [facility]; [facility] Work Phone: 11-25-2022 08:56-0400 Diastolic blood pressure 82 mm[Hg] Yareli Slarb PRESENTATION TE[employer]BER [facility]; [facility] Work Phone: Comment on above: Patient Position: Sitting; Cuff Location : Left Arm; Cuff Size: Standard 11-25-2022 08:56-0400 Heart rate 75 /min Yareli Jiorb [employer]ENTATION TE[employer]BER [facility]; [facility] Work Phone: Comment on above: Pattern: Regular 11-25-2022 08:56-0400 Respiratory rate 17 /min Yareli Tamezrb PRESENTATION TE[employer] MEMBER [facility]; [facility] Work Phone: Comment on above: Pattern: Unlabored 11-25-2022 08:56-0400 SaO2% (BldA) [Mass fraction] 98 % Yareli Tamezrb PRESENTATION TE[employer] MEMBER [facility]; [facility] Work Phone: Comment on above: Room air 11-25-2022 08:56-0400 Systolic blood pressure 136 mm[Hg] Yareli Slarb PRESENTATION TE[employer]BER [facility]; [facility] Work Phone: Comment on above: Patient Position: Sitting; Cuff Location : Left Arm; Cuff Size: Standard 11-11-2022 11:10-0400 Body height 166.37 cm [facility]; [facility] Work Phone: 11-11-2022 11:10-0400 Body mass index (BMI) [Ratio] 38.06 kg/m2 [facility]; [facility] Work Phone: 11-11-2022 11:10-0400 Body surface area Derived from formula 2.12 m2 [facility]; [facility] Work Phone: 11-11-2022 11:10-0400 Body temperature 97.2 [degF] [facility]; [facility] Work Phone: 11-11-2022 11:10-0400 Body weight 105.35 [facility]; [facility] Work Phone: 11-11-2022 11:10-0400 Diastolic blood pressure 82 mm[Hg] [facility]; [facility] Work Phone: Comment on above: Patient Position: Sitting; Cuff Location : Left Arm; Cuff Size: Standard 11-11-2022 11:10-0400 Heart rate 82 /min [facility]; [facility] Work Phone: Comment on above: Pattern: Regular 11-11-2022 11:10-0400 Respiratory rate 16 /[facility]; [facility] Work Phone: Comment on above: Pattern: Unlabored 11-11-2022 11:10-0400 SaO2% (BldA) [Mass fraction] 98 % [facility]; [facility] Work Phone: Comment on above: Room air 11-11-2022 11:10-0400 Systolic blood pressure 122 mm[Hg] [facility]; [facility] Work Phone: Comment on above: Patient Position: Sitting; Cuff Location : Left Arm; Cuff Size: Standard 05-09-2022 14:48-0400 Body height 166.37 cm Laisha [facility]; [facility] Work Phone: 05-09-2022 14:48-0400 Body mass index (BMI) [Ratio] 37.04 kg/m2 Laisha [facility]; [facility] Work Phone: 05-09-2022 14:48-0400 Body surface area Derived from formula 2.1 m2 Laisha Chin [facility]; [facility] Work Phone: 05-09-2022 14:48-0400 Body temperature 97.3 [degF] Laisha Chin CMA [facility]; [facility] Work Phone: Comment on above: Method: Infrared 05-09-2022 14:48-0400 Body weight 102.52 kg Laisha Chin [facility]; [facility] Work Phone: 05-09-2022 14:48-0400 Diastolic blood pressure 82 mm[Hg] Laisha Chin [facility]; [facility] Work Phone: Comment on above: Patient Position: Sitting; Cuff Location : Left Arm; Cuff Size: Standard 05-09-2022 14:48-0400 Heart rate 98 /min Laisha Chin [facility]; [facility] Work Phone: Comment on above: Pattern: Regular 05-09-2022 14:48-0400 Respiratory rate 18 /min Laisha Chin [facility]; [facility] Work Phone: Comment on above: Pattern: Unlabored 05-09-2022 14:48-0400 SaO2% (BldA) [Mass fraction] 95 % Laisha Chin [facility]; [facility] Work Phone: Comment on above: Room air 05-09-2022 14:48-0400 Systolic blood pressure 138 mm[Hg] Laisha Chin [facility]; [facility] Work Phone: Comment on above: Patient Position: Sitting; Cuff Location : Left Arm; Cuff Size: Standard 08-24-2021 11:42-0500 Body height 166.37 cm Cara Arteaga LPN [facility]; [facility] Work Phone: Comment on above: reported by ptgreg 08-24-2021 11:42-0500 Body mass index (BMI) [Ratio] 37.04 kg/m2 Cara Arteaga LPN [facility]; [facility] Work Phone: Comment on above: reported by pt, virtual 08-24-2021 11:42-0500 Body surface area Derived from formula 2.1 m2 Cara Arteaga CHAR [facility]; [facility] Work Phone: Comment on above: reported by pt, virtual 08-24-2021 11:42-0500 Body temperature 98.7 [degF] Cara Arteaga CHAR [facility]; [facility] Work Phone: Comment on above: reported by pt, virtual 08-24-2021 11:42-0500 Body weight 102.52 kg Cara Arteaga CHAR [facility]; [facility] Work Phone: Comment on above: reported by pt, virtual 04-27-2021 17:49-0400 Body height 165.1 cm Rachel Pateon Other Phone: [facility] 04-27-2021 17:49-0400 Body temperature 98.06 [degF] Rachel Teresita Other Phone: [facility] 04-27-2021 17:49-0400 Diastolic blood pressure 86 mm[Hg] Rachel Teresita Other Phone: [facility] 04-27-2021 17:49-0400 Heart rate 106 /min Rachel Teresita Other Phone: [facility] 04-27-2021 17:49-0400 Respiratory rate 16 /min Rachel Teresita Other Phone: [facility] 04-27-2021 17:49-0400 SaO2% (BldA) [Mass fraction] 98 % Rachel Teresita Other Phone: [facility] 04-27-2021 17:49-0400 Systolic blood pressure 132 mm[Hg] Rachel Teresita Other Phone: [facility] 04-15-2021 09:37-0400 Body height 166.37 cm Laisha Chin [facility]; [facility] Work Phone: 04-15-2021 09:37-0400 Body mass index (BMI) [Ratio] 37.04 kg/m2 Laisha Chin [facility]; [facility] Work Phone: 04-15-2021 09:37-0400 Body surface area Derived from formula 2.1 m2 Laisha Chin [facility]; [facility] Work Phone: 04-15-2021 09:37-0400 Body temperature 97.3 [degF] Laisha Chin [facility]; [facility] Work Phone: Comment on above: Method: Infrared 04-15-2021 09:37-0400 Body weight 102.52 kg Laisha Chin [facility]; [facility] Work Phone: 04-15-2021 09:37-0400 Diastolic blood pressure 90 mm[Hg] Laisha Chin [facility]; [facility] Work Phone: Comment on above: Patient Position: Sitting; Cuff Location : Left Arm; Cuff Size: Standard 04-15-2021 09:37-0400 Heart rate 108 /min Laisha Chin [facility]; [facility] Work Phone: Comment on above: Pattern: Regular 04-15-2021 09:37-0400 Respiratory rate 18 /min Laisha Chin [facility]; [facility] Work Phone: Comment on above: Pattern: Unlabored 04-15-2021 09:37-0400 SaO2% (BldA) [Mass fraction] 97 % Laisha Chin [facility]; [facility] Work Phone: Comment on above: Room air 04-15-2021 09:37-0400 Systolic blood pressure 123 mm[Hg] Laisha Chin [facility]; [facility] Work Phone: Comment on above: Patient Position: Sitting; Cuff Location : Left Arm; Cuff Size: Standard 09-11-2020 07:41-0500 BMI (Body Mass Index) 38.02 kg/m2 Shiraz Franks [facility]; [facility] Work Phone: [...] Mass Index) 38.02 kg/m2 Shiraz Gray LPN [facility]; [facility] Work [...] 09-07-2020 08:56-0500 Pulse Oximetry 97 % Rachel Lo [facility]; [facility] Work [...] 04-30-2020 08:52-0400 BP Systolic 148 mm[Hg] Rachel Teresita DO Work Phone: [facility] Work Phone: Comment on above: Patient Position: Sitting 04-30-2020 08:52-0400 BSA (Body Surface Area) 2.11 m2 Rachel Teresita DO Work Phone: [facility] Work Phone: 04-30-2020 08:52-0400 Height 166.37 cm Rachel Teresita DO Work Phone: [facility] Work Phone: 04-30-2020 08:52-0400 Pulse (Heart Rate) 100 /min Rachel Pateon DO Work Phone: [facility] Work Phone: Comment on above: Pattern: Regular 04-30-2020 08:52-0400 Respiratory Rate 16 /min Rachel Lo DO Work Phone: [facility] Work Phone: Comment on above: Pattern: Unlabored 12-27-2019 07:33-0400 BMI (Body Mass Index) 37.71 kg/m2 Laisha Chin [facility] Work Phone: 12-27-2019 07:33-0400 Body Temperature 97.2 [degF] Laisha Chin [facility] Work Phone: Comment on above: Method: Temporal 12-27-2019 07:33-0400 Body weight 104.38 kg Laisha Chin [facility] Work Phone: 12-27-2019 07:33-0400 BP Diastolic 82 mm[Hg] Laisha Chin [facility] Work Phone: Comment on above: Patient Position: Sitting; Cuff Location : Left Arm; Cuff Size: Standard 12-27-2019 07:33-0400 BP Systolic 120 mm[Hg] Laisha Chin [facility] Work Phone: Comment on above: Patient Position: Sitting; Cuff Location : Left Arm; Cuff Size: Standard 12-27-2019 07:33-0400 BSA (Body Surface Area) 2.11 m2 Laisha Chin [facility] Work Phone: 12-27-2019 07:33-0400 Height 166.37 cm Laisha Chin [facility] Work Phone: 12-27-2019 07:33-0400 Pulse (Heart Rate) 109 /min Laisha Chin [facility] Work Phone: Comment on above: Pattern: Regular 12-27-2019 07:33-0400 Pulse Oximetry 97 % Rachel Lo [facility] Work Phone: Comment on above: Room air 12-27-2019 07:33-0400 Respiratory Rate 18 /min Laisha Chin [facility] Work Phone: Comment on above: Pattern: Unlabored 12-27-2019 07:33-0400 SaO2% (BldA) [Mass fraction] 97 % Laisha Chin [facility]; [facility] Work Phone: Comment on above: Room air 12-24-2019 15:44-0400 BMI (Body Mass Index) 34.93 kg/m2 Shiraz Gray LPN [facility] Work Phone: 12-24-2019 15:44-0400 Body Temperature 97.3 [degF] Shiraz Gray LPN [facility] Work Phone: Comment on above: Method: Temporal 12-24-2019 15:44-0400 Body weight 96.67 kg Shiraz Gray LPN [facility] Work Phone: 12-24-2019 15:44-0400 BP Diastolic 90 mm[Hg] Shiraz Gray LPN [facility] Work Phone: Comment on above: Patient Position: Sitting; Cuff Location : Left Arm; Cuff Size: Standard 12-24-2019 15:44-0400 BP Systolic 160 mm[Hg] Shiraz Gray LPN [facility] Work Phone: Comment on above: Patient Position: Sitting; Cuff Location : Left Arm; Cuff Size: Standard 12-24-2019 15:44-0400 BSA (Body Surface Area) 2.04 m2 Shiraz Gray LPN [facility] Work Phone: 12-24-2019 15:44-0400 Height 166.37 cm Shiraz Gray LPN [facility] Work Phone: 12-24-2019 15:44-0400 Pulse (Heart Rate) 106 /min hSiraz Gray LPN [facility] Work Phone: Comment on above: Pattern: Regular 12-24-2019 15:44-0400 Pulse Oximetry 98 % Rachel Lo [facility] Work Phone: Comment on above: Room air 12-24-2019 15:44-0400 Respiratory Rate 16 /min Shiraz Gray [facility] Work Phone: Comment on above: Pattern: Unlabored 12-24-2019 15:44-0400 SaO2% (BldA) [Mass fraction] 98 % Shiraz Gray [facility]; [facility] Work Phone: Comment on above: Room air 05-02-2019 09:19-0400 BMI (Body Mass Index) 34.93 kg/m2 Lisette [employer] [facility] Work Phone: 05-02-2019 09:19-0400 Body Temperature 97.5 [degF] [facility] Work Phone: Comment on above: Method: Temporal 05-02-2019 09:19-0400 Body weight 96.67 kg [facility] Work Phone: 05-02-2019 09:19-0400 BP Diastolic 72 mm[Hg] [facility] Work Phone: Comment on above: Patient Position: Sitting; Cuff Location : Left Arm; Cuff Size: Standard 05-02-2019 09:19-0400 BP Systolic 116 mm[Hg] [facility] Work Phone: Comment on above: Patient Position: Sitting; Cuff Location : Left Arm; Cuff Size: Standard 05-02-2019 09:19-0400 BSA (Body Surface Area) 2.04 m2 [facility] Work Phone: 05-02-2019 09:19-0400 Height 166.37 cm [facility] Work Phone: 05-02-2019 09:19-0400 Pulse (Heart Rate) 104 /min [facility] Work Phone: Comment on above: Pattern: Regular 05-02-2019 09:19-0400 Pulse Oximetry 98 % Rachel Lo [facility] Work Phone: Comment on above: Room air 05-02-2019 09:19-0400 Respiratory Rate 16 /min Lisette [employer] [facility] Work Phone: Comment on above: Pattern: Unlabored 05-02-2019 09:19-0400 SaO2% (BldA) [Mass fraction] 98 % Lisette Ty [facility]; [facility] Work Phone: Comment on above: Room air 02-21-2019 10:33-0400 BMI (Body Mass Index) 34.64 kg/m2 Lisette [employer] [facility] Medicine Work Phone: 02-21-2019 10:33-0400 Body weight 95.88 kg Lisette [employer] [facility] Work Phone: 02-21-2019 10:33-0400 BP Diastolic 82 mm[Hg] Lisette [employer] [facility] Work Phone: Comment on above: Patient Position: Sitting; Cuff Location : Left Arm; Cuff Size: Standard 02-21-2019 10:33-0400 BP Systolic 124 mm[Hg] Lisette [employer] [facility] Work Phone: Comment on above: Patient Position: Sitting; Cuff Location : Left Arm; Cuff Size: Standard 02-21-2019 10:33-0400 BSA (Body Surface Area) 2.04 m2 Lisette [employer] [facility] Medicine Work Phone: 02-21-2019 10:33-0400 Height 166.37 cm Lisette [employer] [facility] Work Phone: 02-21-2019 10:33-0400 Pulse (Heart Rate) 90 /min Lisette [employer] [facility] Work Phone: Comment on above: Pattern: Regular 02-21-2019 10:33-0400 Pulse Oximetry 98 % Rachel Teresita [facility] Medicine Work Phone: Comment on above: Room air 02-21-2019 10:33-0400 Respiratory Rate 18 /min Lisette [employer] [facility] Medicine Work Phone: Comment [...] 12-24-2018 11:28-0400 Pulse Oximetry 98 % Rachel Lo [facility] [...] 12-24-2018 11:28-0400 Weight 95.88 kg Rachel Lo [facility] Work Phone: 07-17-2018 08:05-0500 BMI (Body Mass Index) 32.79 kg/m2 Shireen Vega [facility] Medicine Work Phone: 07-17-2018 08:05-0500 Body Temperature 98.6 [degF] Shireen Vega [facility] Work Phone: Comment on above: Method: Temporal 07-17-2018 08:05-0500 Body weight 90.77 kg Shireen Vega [facility] Work Phone: 07-17-2018 08:05-0500 BP Diastolic 74 mm[Hg] Shireen Vega [facility] Work Phone: Comment on above: Patient Position: Sitting; Cuff Location : Left Arm; Cuff Size: Standard 07-17-2018 08:05-0500 BP Systolic 114 mm[Hg] Shireen Vega [facility] Medicine Work Phone: Comment on above: Patient Position: Sitting; Cuff Location : Left Arm; Cuff Size: Standard 07-17-2018 08:05-0500 BSA (Body Surface Area) 1.99 m2 Shireen Vega [facility] Work Phone: 07-17-2018 08:05-0500 Height 166.37 cm Shireen Vega [facility] Work Phone: 07-17-2018 08:05-0500 Pulse (Heart Rate) 86 /min Shireen Vega [facility] Work Phone: Comment on above: Pattern: Regular 07-17-2018 08:05-0500 Pulse Oximetry 98 % Rachelirma Lo [facility] Work Phone: Comment on above: Room air 07-17-2018 08:05-0500 Respiratory Rate 16 /min Shireen Vega [facility] Work Phone: Comment on above: Pattern: Unlabored 07-17-2018 08:05-0500 SaO2% (BldA) [Mass fraction] 98 % Shireen Vega [facility]; [facility] Work Phone: Comment on above: Room air 07-17-2018 08:05-0500 Weight 90.77 kg Rachel Lo [facility] Work Phone: 06-16-2017 08:42-0400 BMI [...] 06-16-2017 08:42-0400 Pulse Oximetry 96 % Rachel Teresita [facility] Medicine Work Phone: Comment on above: Room air 06-16-2017 08:42-0400 Respiratory Rate 18 /min Jenny Rizvi RN [facility] Work Phone: Comment on above: Pattern: Unlabored 06-16-2017 08:42-0400 SaO2% (BldA) [Mass fraction] 96 % Jenny Rizvi RN [facility]; [facility] Work Phone: Comment on above: Room air 06-16-2017 08:42-0400 Weight 92.76 kg Rachel Pateon [facility] Work Phone: 04-19-2017 08:29-0400 BMI (Body Mass Index) 34.31 kg/m2 Milena cornejo Internal Medicine Work Phone: 04-19-2017 08:29-0400 Body weight 94.97 kg Milena Wilder [facility] Work Phone: 04-19-2017 08:29-0400 BP Diastolic 76 mm[Hg] Milena Wilder [facility] Work Phone: Comment on above: Patient Position: Sitting; Cuff Location : Left Arm; Cuff Size: Standard 04-19-2017 08:29-0400 BP Systolic 118 mm[Hg] Milena Wilder [facility] Work Phone: Comment on above: Patient Position: Sitting; Cuff Location : Left Arm; Cuff Size: Standard 04-19-2017 08:29-0400 BSA (Body Surface Area) 2.03 m2 Milena Wilder [facility] Work Phone: 04-19-2017 08:29-0400 Height 166.37 cm Milena Wilder [facility] Work Phone: 04-19-2017 08:29-0400 Pulse (Heart Rate) 79 /min Milena Wilder [facility] Work Phone: Comment on above: Pattern: Regular 04-19-2017 08:29-0400 Pulse Oximetry 98 % Rachel Lo [facility] Medicine Work Phone: Comment on above: Room air 04-19-2017 08:29-0400 Respiratory Rate 18 /min Milena Wilder [facility] Internal Medicine Work Phone: Comment on above: Pattern: Unlabored 04-19-2017 08:29-0400 SaO2% (BldA) [Mass fraction] 98 % Milena Wilder [facility]; [facility] Work Phone: Comment on above: Room air 04-19-2017 08:29-0400 Weight 94.97 kg Rachel Lo [facility] Internal Medicine Work Phone: 12-13-2016 09:37-0400 BMI [...] 05-02-2016 09:11-0400 Pulse Oximetry 97 % Rachel Lo [facility] [...] Mass Index) 33.61 kg/m2 Stephani Tinoco RN [facility] Internal Medicine Work Phone: 05-05-2015 09:36-0400 Body [...] 09:48-0500 Respiratory Rate 20 /min Natty Jaramillo CHAR [facility] Work Phone: 08-06-2014 09:48-0500 SaO2% (BldA) [Mass fraction] 97 % Natty Jaramillo LPN [facility]; [facility] Work Phone: Comment on above: Room air 08-06-2014 09:48-0500 Weight 92.28 kg Rachel Lo [facility] Work Phone: 05-26-2014 12:41-0400 [...] 05-26-2014 12:41-0400 Pulse Oximetry 96 % Rachel Pateon [facility] Work Phone: Comment on above: Room air 05-26-2014 12:41-0400 Respiratory Rate 18 /min Jenny Rizvi RN [facility] Work Phone: Comment on above: Pattern: Unlabored 05-26-2014 12:41-0400 SaO2% (BldA) [Mass fraction] 96 % Jenny Rizvi RN [facility]; [facility] Work Phone: Comment on above: Room air 05-26-2014 12:41-0400 Weight 92.28 kg Rachel Pateon [facility] Work Phone: 05-14-2014 10:33-0400 [...] Regular 05-14-2014 10:33-0400 Pulse Oximetry 98 % Rachelirma Lo [facility] Medicine Work Phone: Comment on above: Room air 05-14-2014 10:33-0400 Respiratory Rate 20 /min Jenny Rizvi RN [facility] Work Phone: Comment on above: Pattern: Unlabored 05-14-2014 10:33-0400 SaO2% (BldA) [Mass fraction] 98 % Jenny Rizvi RN [facility]; [facility] Work Phone: Comment on above: Room air 05-14-2014 10:33-0400 Weight 91.29 kg Rachel Pateon [facility] Internal Medicine Work Phone: 03-04-2014 14:40-0400 BMI (Body Mass Index) 33.81 kg/m2 Milenaestrella Wilder [facility] Internal Medicine Work Phone: 03-04-2014 14:40-0400 Body Temperature 99.4 [degF] Milenaestrella Wilder [facility] Internal Medicine Work Phone: Comment on above: Method: Oral 03-04-2014 14:40-0400 Body weight 92.17 kg Milena Wilder [facility] Internal Medicine Work Phone: 03-04-2014 14:40-0400 BP Diastolic 78 mm[Hg] Milena [facility] Medicine Work Phone: Comment on above: Patient Position: Sitting; Cuff Location : Left Arm; Cuff Size: Standard 03-04-2014 14:40-0400 BP Systolic 138 mm[Hg] Milenaestrella Munsony [facility] Internal Medicine Work Phone: Comment on above: Patient Position: Sitting; Cuff Location : Left Arm; Cuff Size: Standard 03-04-2014 14:40-0400 BSA (Body Surface Area) 1.99 m2 Milena Wilder [facility] Internal Medicine Work Phone: 03-04-2014 14:40-0400 Height 165.1 cm Milena Wilder [facility] Medicine Work Phone: 03-04-2014 14:40-0400 Pulse (Heart Rate) 109 /min Milena Wilder [facility] Medicine Work Phone: Comment on above: Pattern: Regular 03-04-2014 14:40-0400 Pulse Oximetry 98 % Rachel Lo [facility] Internal Medicine Work Phone: Comment on above: Room air 03-04-2014 14:40-0400 Respiratory Rate 18 /min Milena Wilder [facility] Medicine Work Phone: Comment on above: Pattern: Unlabored 03-04-2014 14:40-0400 SaO2% (BldA) [Mass fraction] 98 % Milena Wilder [facility] Internal Medicine; [facility] Work Phone: Comment on above: Room air 03-04-2014 14:40-0400 Weight 92.17 kg Rachel Lo [facility] Medicine Work Phone: 01-23-2014 12:10-0400 BMI (Body Mass Index) 33.83 kg/m2 Stephani Tinoco RN [facility] Internal Medicine Work Phone: 01-23-2014 12:10-0400 Body Temperature 97.4 [degF] Stephani Tinoco RN [facility] Internal Medicine Work Phone: Comment [...] 01-23-2014 12:10-0400 Pulse Oximetry 98 % Rachel Teresita [facility] [...] 01-13-2014 10:03-0400 Pulse Oximetry 98 % Rachel Lo [facility] [...] air 01-13-2014 10:03-0400 Weight 92.22 kg Rachel Lo [facility] Work Phone: 07-25-2013 09:36-0500 [...] 09:36-0500 Pulse Oximetry 98 % Rachel Lo [facility] Medicine Work Phone: Comment on above: Room air 07-25-2013 09:36-0500 Respiratory Rate 20 /min Jenny Rizvi RN [facility] Work Phone: Comment on above: Pattern: Unlabored 07-25-2013 09:36-0500 SaO2% (BldA) [Mass fraction] 98 % Jenny Rizvi RN [facility]; [facility] Work Phone: Comment on above: Room air 07-25-2013 09:36-0500 Weight 86.44 kg Rachel Lo [facility] Medicine Work Phone: 07-04-2013 13:20-0500 BMI (Body Mass Index) 31.8 kg/m2 Maylin Ronidianne [facility] Work Phone: 07-04-2013 13:20-0500 Body weight 86.69 [facility] Work Phone: 07-04-2013 13:20-0500 BP Diastolic 70 mm[Hg] [facility] Work Phone: Comment on above: Patient Position: Sitting; Cuff Location : Left Arm; Cuff Size: Standard 07-04-2013 13:20-0500 BP Systolic 115 mm[Hg] Maylin Mandianne [facility] Work Phone: Comment on above: Patient Position: Sitting; Cuff Location : Left Arm; Cuff Size: Standard 07-04-2013 13:20-0500 BSA (Body Surface Area) 1.94 m2 Maylin Jackson [facility] Internal Medicine Work Phone: 07-04-2013 13:20-0500 Height 165.1 cm Maylin Jackson [facility] Internal Medicine Work Phone: 07-04-2013 13:20-0500 Pulse (Heart Rate) 88 /min Maylin Jackson [facility] Internal Medicine Work Phone: Comment on above: Pattern: Regular 07-04-2013 13:20-0500 Respiratory Rate 16 /min Maylin Jackson [facility] Internal Medicine Work Phone: Comment on above: Pattern: Unlabored 07-04-2013 13:20-0500 Weight 86.69 kg Rachel Lo [facility] Medicine Work Phone: 06-20-2013 10:34-0500 BMI [...] 06-20-2013 10:34-0500 Weight 87.66 kg Rachel Lo [facility] Medicine Work Phone: 05-24-2013 13:14-0400 BMI (Body Mass Index) 32.96 kg/m2 Milena Wilder [facility] Internal Medicine Work Phone: 05-24-2013 13:14-0400 Body Temperature 97.8 [degF] Milena Wilder [facility] Medicine Work Phone: Comment on above: Method: Tympanic 05-24-2013 13:14-0400 Body weight 89.84 kg Milena Wilder [facility] Medicine Work Phone: 05-24-2013 13:14-0400 BP Diastolic 72 mm[Hg] [facility] Work Phone: Comment on above: Patient Position: Sitting; Cuff Location : Left Arm; Cuff Size: Standard 05-24-2013 13:140400 BP Systolic 122 mm[Hg] Milena Wilder [facility] Medicine Work Phone: Comment on above: Patient Position: Sitting; Cuff Location : Left Arm; Cuff Size: Standard 05-24-2013 13:14-0400 BSA (Body Surface Area) 1.97 m2 Milena Wilder [facility] Medicine Work Phone: 05-24-2013 13:140400 Height 165.1 cm [facility] Work Phone: 05-24-2013 13:14-0400 Pulse (Heart Rate) 110 /min Milena Wilder [facility] Medicine Work Phone: Comment on above: Pattern: Regular 05-24-2013 13:14-0400 Pulse Oximetry 98 % Rachel Lo [facility] Work Phone: Comment on above: Room air 05-24-2013 13:14-0400 Respiratory Rate 18 /min Milena Wilder [facility] Work Phone: Comment on [...] 05-20-2013 11:25-0400 Pulse Oximetry 98 % Rachel Lo [facility] [...] air 05-20-2013 11:25-0400 Weight 89.84 kg Rachel Lo [facility] Work Phone: 05-02-2013 10:36-0400 [...] 06-28-2012 10:39-0500 Weight 79.98 kg Rachel Lo [facility] Work Phone: 05-25-2012 13:33-0400 BMI [...] 13:33-0400 Pulse Oximetry 98 % Rachel Lo [facility] Work Phone: Comment on above: Room air 05-25-2012 13:33-0400 Respiratory Rate 16 /min Natty Jaramillo LPN [...] 09-05-2011 08:55-0500 Body Temperature 97 [degF] Jenny Rzivi RN [facility] Work Phone: 09-05-2011 [...] 09-05-2011 08:55-0500 Weight 85.9 kg Rachel Lo [facility] Medicine Work Phone: 01-28-2011 08:44-0400 BMI (Body Mass Index) 30.79 kg/m2 JOCELYN Srtong LPN [facility] Medicine Work Phone: 01-28-2011 08:44-0400 Body Temperature 97.9 [degF] JOCELYN Strong LPN [facility] Medicine Work Phone: Comment on above: Method: Oral 01-28-2011 08:44-0400 Body weight 83.92 kg JOCELYN Strong LPN [facility] Medicine Work Phone: 01-28-2011 08:44-0400 BP Diastolic 68 mm[Hg] JOCELYN Strong LPN [facility] Medicine Work Phone: Comment on above: Patient Position: Sitting; Cuff Location : Left Arm; Cuff Size: Standard 01-28-2011 08:44-0400 BP Systolic 116 mm[Hg] JOCELYN Strong LPN [facility] Medicine Work Phone: Comment on above: Patient Position: Sitting; Cuff Location : Left Arm; Cuff Size: Standard 01-28-2011 08:44-0400 BSA (Body Surface Area) 1.91 m2 JOCELYN Strong LPN [facility] Medicine Work Phone: 01-28-2011 08:44-0400 Height 165.1 cm JOCELYN Strong LPN [facility] Medicine Work Phone: 01-28-2011 08:44-0400 Pulse (Heart Rate) 68 /min JOCELYN Strong LPN [facility] Medicine Work Phone: Comment on above: Pattern: Regular 01-28-2011 08:44-0400 Respiratory Rate 18 /min JOCELYN Strong LPN [facility] Medicine Work Phone: Comment on above: Pattern: Unlabored 01-28-2011 08:44-0400 Weight 83.92 kg Rachel Lo [facility] Medicine Work Phone: 11-11-2010 14:03-0400 BMI (Body Mass Index) 30.95 kg/m2 Stephani Tinoco RN [facility] Internal Medicine Work Phone: 11-11-2010 14:03-0400 Body [...] Unlabored 11-11-2010 14:03-0400 Weight 84.37 kg Rachel Lo [facility] Work Phone: 08-30-2010 15:18-0500 BMI (Body Mass Index) 30.95 kg/m2 JOCELYN Strong LPN [facility] Work Phone: 08-30-2010 15:18-0500 Body Temperature 98.2 [degF] JOCELYN Strong LPN [facility] Work Phone: Comment on above: Method: Oral 08-30-2010 15:18-0500 Body weight 84.37 kg JOCELYN Strong LPN [facility] Work Phone: 08-30-2010 15:18-0500 BP Diastolic 74 mm[Hg] JOCELYN Strong LPN [facility] Medicine Work Phone: Comment on above: Patient Position: Sitting; Cuff Location : Left Arm; Cuff Size: Standard 08-30-2010 15:18-0500 BP Systolic 114 mm[Hg] JOCELYN Strong LPN [facility] Medicine Work Phone: Comment on above: Patient Position: Sitting; Cuff Location : Left Arm; Cuff Size: Standard 08-30-2010 15:18-0500 BSA (Body Surface Area) 1.92 m2 JOCELYN Strong LPN [facility] Medicine Work Phone: 08-30-2010 15:18-0500 Height 165.1 cm JOCELYN Strong LPN [facility] Medicine Work Phone: 08-30-2010 15:18-0500 Pulse (Heart Rate) 74 /min JOCELYN Strong LPN [facility] Medicine Work Phone: Comment on above: Pattern: Regular 08-30-2010 15:18-0500 Respiratory Rate 18 /min JOCELYN Strong LPN [facility] Medicine Work Phone: Comment on above: Pattern: Unlabored 08-30-2010 15:18-0500 Weight 84.37 kg Rachel Lo [facility] Medicine Work Phone: 01-15-2010 14:45-0400 Body Temperature 98.9 [degF] [facility] Internal Medicine Work Phone: 01-15-2010 14:45-0400 Body weight 84.37 kg [facility] Internal Medicine Work Phone: 01-15-2010 14:45-0400 BP Diastolic 76 mm[Hg] [facility] Medicine Work Phone: Comment on above: Patient Position: Sitting; Cuff Location : Left Arm; Cuff Size: Standard 01-15-2010 14:45-0400 BP Systolic 112 mm[Hg] [facility] Internal Medicine Work Phone: Comment on above: Patient Position: Sitting; Cuff Location : Left Arm; Cuff Size: Standard 01-15-2010 14:45-0400 Pulse (Heart Rate) 80 /min [facility] Internal Medicine Work Phone: Comment on above: Pattern: Regular 01-15-2010 14:45-0400 Respiratory Rate 18 /min [facility] Internal Medicine Work Phone: Comment on above: Pattern: Unlabored 01-15-2010 14:45-0400 Weight 84.37 kg Rachel Lo [facility] Medicine Work Phone: 12-15-2009 14:58-0400 Body Temperature 98.2 [degF] Brooke Tillman [facility] Medicine Work Phone: 12-15-2009 14:58-0400 BP Diastolic 72 mm[Hg] Brooke Tillman [facility] Medicine Work Phone: Comment on above: Patient Position: Sitting; Cuff Location : Left Arm; Cuff Size: Large 12-15-2009 14:58-0400 BP Systolic 110 mm[Hg] Brooke Tillman [facility] Medicine Work Phone: Comment on above: Patient Position: Sitting; Cuff Location : Left Arm; Cuff Size: Large 12-15-2009 14:58-0400 Pulse (Heart Rate) 112 /min Brooke Tillman [facility] Internal Medicine Work Phone: Comment on above: Pattern: Regular 12-15-2009 14:58-0400 Respiratory Rate 18 /min Brooke Tillman [facility] Medicine Work Phone: Comment on above: Pattern: Unlabored 10-22-2009 14:46-0500 BMI (Body Mass Index) 30.45 kg/m2 Natty Jaramillo LPN [facility] Medicine Work Phone: 10-22-2009 14:46-0500 Body Temperature 97.9 [degF] Natty Jaramillo LPN [facility] Medicine Work Phone: Comment on above: Method: Oral 10-22-2009 14:46-0500 Body weight 83.01 kg Natty Jaramillo LPN [facility] Medicine Work Phone: 10-22-2009 14:46-0500 BP [...] 10-22-2009 14:46-0500 Pulse Oximetry 98 % Rachel Lo [facility] [...] 10-22-2009 14:46-0500 Weight 83.01 kg Rachel Lo [facility] Work Phone: 10-06-2009 11:46-0500 BMI [...] 11:46-0500 Pulse Oximetry 98 % Rachel Lo [facility] [...] 07-01-2009 15:05-0500 Head Circumference 0 cm Rachel Pateon [facility] Work Phone: 07-01-2009 15:05-0500 [...] Unlabored 07-01-2009 15:05-0500 Weight 83.01 kg Rachel Pateon [facility] Work Phone: 04-02-2009 15:36-0400 BMI (Body Mass Index) 30.45 kg/m2 Debra Simms [facility] Work Phone: [facility] Work Phone: 04-02-2009 15:36-0400 Body weight 83.01 kg Debra Simsm PHARM[employer]Y AFFAIRS ASSISTANT Work Phone: [facility] Work Phone: 04-02-2009 15:36-0400 BP Diastolic 70 mm[Hg] Debra Simms PHARMACY AFFAIRS ASSISTANT Work Phone: [facility] Work Phone: Comment on above: Patient Position: Supine; Cuff Location: Right Arm; Cuff Size: Standard 04-02-2009 15:36-0400 BP Systolic 112 mm[Hg] Debra Halea PHARMACY AFFAIRS ASSISTANT Work Phone: [facility] Work Phone: Comment on above: Patient Position: Supine; Cuff Location: Right Arm; Cuff Size: Standard 04-02-2009 15:36-0400 BSA (Body Surface Area) 1.9 m2 Debra Simms PHARMACY AFFAIRS ASSISTANT Work Phone: [facility] Work Phone: 04-02-2009 15:36-0400 Head Circumference 0 cm Rachel Lo [facility] Work Phone: 04-02-2009 15:36-0400 Head Occipital-frontal circumference 0 cm Debra Simms PHARMACY AFFAIRS ASSISTANT Work Phone: [facility]; [facility] Work Phone: 04-02-2009 15:36-0400 Height 165.1 cm Debra Simms PHARMACY AFFAIRS ASSISTANT Work Phone: [facility] Work Phone: 04-02-2009 15:36-0400 Pulse (Heart Rate) 80 /min Debra Halea PHARMACY AFFAIRS ASSISTANT Work Phone: [facility] Work Phone: Comment on above: Pattern: Regular 04-02-2009 15:36-0400 Respiratory Rate 16 /min Debra Simms PHARMACY AFFAIRS ASSISTANT Work Phone: [facility] Work Phone: Comment on above: Pattern: Unlabored 04-02-2009 15:36-0400 Weight 83.01 kg Rachel Lo [facility] Work Phone: 11-27-2008 11:08-0400 BMI (Body Mass Index) 29.76 kg/m2 Dyan Guerrero [facility] Medicine Work Phone: 11-27-2008 11:08-0400 Body Temperature 98.1 [degF] [facility] Work [facility]: Comment on above: Method: Oral 11-27-2008 11:08-0400 Body weight 86.18 kg Dyan Guerrero [facility] Work Phone: 11-27-2008 11:08-0400 BP Diastolic 80 mm[Hg] [facility] Work Phone: Comment on above: Patient Position: Sitting; Cuff Location : Left Arm; Cuff Size: Standard 11-27-2008 11:08-0400 BP Systolic 122 mm[Hg] [facility] Work Phone: Comment on above: Patient Position: Sitting; Cuff Location : Left Arm; Cuff Size: Standard 11-27-2008 11:08-0400 BSA (Body Surface Area) 1.98 m2 [facility] Work Phone: 11-27-2008 11:08-0400 Head Circumference 0 cm Rachel Lo [facility] Work Phone: 11-27-2008 11:08-0400 Head Occipital-frontal circumference 0 cm [facility]; [facility] Work Phone: 11-27-2008 11:08-0400 Height 170.18 cm [facility] Work Phone: 11-27-2008 11:08-0400 Pulse (Heart Rate) 85 /min [facility] Work Phone: Comment on above: Pattern: Regular 11-27-2008 11:08-0400 Respiratory Rate 18 /min [facility] Work Phone: Comment on above: Pattern: Unlabored 11-27-2008 11:08-0400 Weight 86.18 kg Rachel Lo [facility] Work Phone: 11-20-2008 15:50-0400 BMI (Body Mass Index) 29.76 kg/m2 Criselda Rodriguez [facility] Medicine Work Phone: 11-20-2008 15:50-0400 Body weight 86.18 kg Criselda Rodriguez [facility] Work Phone: 11-20-2008 15:50-0400 BP Diastolic 60 mm[Hg] Criselda [facility] Medicine Work Phone: Comment on above: Patient Position: Supine; Cuff Location: Left Arm; Cuff Size: Standard 11-20-2008 15:50-0400 BP Systolic 112 mm[Hg] Criselda [facility] Medicine Work Phone: Comment on above: Patient Position: Supine; Cuff Location: Left Arm; Cuff Size: Standard 11-20-2008 15:50-0400 BSA (Body Surface Area) 1.98 m2 Criselda Rodriguez [facility] Work Phone: 11-20-2008 15:50-0400 Head Circumference 0 cm Rachel Lo [facility] Work Phone: 11-20-2008 15:50-0400 Head Occipital-frontal circumference 0 cm Criselda Rodriguez [facility]; [facility] Work Phone: 11-20-2008 15:50-0400 Height 170.18 cm Criselda [facility] Work Phone: 11-20-2008 15:50-0400 Pulse (Heart Rate) 80 /min Criselda [facility] Medicine Work Phone: Comment on above: Pattern: Regular 11-20-2008 15:50-0400 Respiratory Rate 16 /min Criselda [facility] Medicine Work Phone: Comment on above: Pattern: Unlabored 11-20-2008 15:50-0400 Weight 86.18 kg Rachel Lo [facility] Work Phone: 09-29-2008 16:34-0500 Body Temperature 99 [degF] JOCELYN Strong LPN [facility] Work Phone: Comment on above: Method: Oral 09-29-2008 16:34-0500 Body weight 0 kg JOCELYN Strong LPN [facility] Work Phone: 09-29-2008 16:34-0500 BP Diastolic 78 mm[Hg] JOCELYN Strong LPN [facility] Work Phone: Comment on above: Patient Position: Sitting; Cuff Location : Left Arm; Cuff Size: Standard 09-29-2008 16:34-0500 BP Systolic 118 mm[Hg] JOCELYN Strong LPN [facility] Work Phone: Comment on above: Patient Position: Sitting; Cuff Location : Left Arm; Cuff Size: Standard 09-29-2008 16:34-0500 Head Circumference 0 cm Rachel Lo [facility] Work Phone: 09-29-2008 16:34-0500 Head Occipital-frontal circumference 0 cm JOCELYN Strong LPN [facility]; [facility] Work Phone: 09-29-2008 16:34-0500 Height 0 cm JOCELYN Strong LPN [facility] Work Phone: 09-29-2008 16:34-0500 Pulse (Heart Rate) 70 /min JOCELYN Strong LPN [facility] Work Phone: Comment on above: Pattern: Regular 09-29-2008 16:34-0500 Respiratory Rate 16 /min JOCELYN Strong LPN [facility] Work Phone: Comment on above: Pattern: Unlabored 09-29-2008 16:34-0500 Weight 0 kg Rachel Lo [facility] Work Phone: 09-02-2008 16:05-0500 Body Temperature 98.2 [degF] Dyan [facility] Medicine Work Phone: Comment on above: Method: Oral 09-02-2008 16:05-0500 Body weight 0 [facility] Work Phone: 09-02-2008 16:05-0500 BP Diastolic 80 mm[Hg] Dyan [facility] Medicine Work Phone: Comment on above: Patient Position: Sitting; Cuff Location : Left Arm; Cuff Size: Standard 09-02-2008 16:05-0500 BP Systolic 128 mm[Hg] Dyan [facility] Medicine Work Phone: Comment on above: Patient Position: Sitting; Cuff Location : Left Arm; Cuff Size: Standard 09-02-2008 16:05-0500 Head Circumference 0 cm Rachel Lo [facility] Work Phone: 09-02-2008 16:05-0500 Head Occipital-frontal circumference 0 cm Dyan [facility]; [facility] Work Phone: 09-02-2008 16:05-0500 Height 0 cm Dyan [facility] Work Phone: 09-02-2008 16:05-0500 Pulse (Heart Rate) 68 /min Dyan [facility] Work Phone: Comment on above: Pattern: Regular 09-02-2008 16:05-0500 Respiratory Rate 18 /min Dyan [facility] Work Phone: Comment on above: Pattern: Unlabored 09-02-2008 16:05-0500 Weight 0 kg Rachel Lo [facility] Work Phone: 05-05-2008 14:07-0400 Body Temperature 97.9 [degF] JOCELYN Strong [facility] Work Phone: Comment on above: Method: Oral 05-05-2008 14:07-0400 Body weight 0 kg JOCELYN Strong [facility] Medicine Work Phone: 05-05-2008 14:07-0400 BP Diastolic 78 mm[Hg] JOCELYN Strong [facility] Work Phone: Comment on above: Patient Position: Sitting; Cuff Location : Left Arm; Cuff Size: Standard 05-05-2008 14:07-0400 BP Systolic 120 mm[Hg] JOCELYN Strong [facility] Work Phone: Comment on above: Patient Position: Sitting; Cuff Location : Left Arm; Cuff Size: Standard 05-05-2008 14:07-0400 Head Circumference 0 cm Rachel Lo [facility] Work Phone: 05-05-2008 14:07-0400 Head Occipital-frontal circumference 0 cm JOCELYN Strong LPN [facility]; [facility] Work Phone: 05-05-2008 14:07-0400 Height 0 cm JOCELYN Strong [employer]ENTATION TEAM MEMBER [facility] Work Phone: 05-05-2008 14:07-0400 Pulse (Heart Rate) 72 /min JOCELYN Strong [facility] Work Phone: Comment on above: Pattern: Regular 05-05-2008 14:07-0400 Respiratory Rate 16 /min JOCELYN Strong [facility] Work Phone: Comment on above: Pattern: Unlabored 05-05-2008 14:07-0400 Weight 0 kg Rachel Lo [facility] Internal Medicine Work Phone: 01-17-2008 15:44-0400 Body weight 0 kg Vidhi [facility] Internal Medicine Work Phone: 01-17-2008 15:44-0400 BP Diastolic 76 mm[Hg] [facility] Internal Medicine Work Phone: Comment on above: Patient Position: Sitting; Cuff Location : Left Arm; Cuff Size: Standard 01-17-2008 15:44-0400 BP Systolic 124 mm[Hg] [facility] Internal Medicine Work Phone: Comment on above: Patient Position: Sitting; Cuff Location : Left Arm; Cuff Size: Standard 01-17-2008 15:44-0400 Head Circumference 0 cm Rachel Lo [facility] Internal Medicine Work Phone: 01-17-2008 15:44-0400 Head Occipital-frontal circumference 0 cm Vidhi [facility]; [facility] Work Phone: 01-17-2008 15:44-0400 Height 0 cm [facility] Internal Medicine Work Phone: 01-17-2008 15:44-0400 Pulse (Heart Rate) 82 /min Vidhi Anglin [facility] Work Phone: Comment on above: Pattern: Regular 01-17-2008 15:44-0400 Respiratory Rate 16 /min Vidhi Anglin [facility] Work Phone: Comment on above: Pattern: Unlabored 01-17-2008 15:44-0400 Weight 0 kg Rachel Lo [facility] Work Phone: 05-29-2007 12:02-0400 Body Temperature 98.1 [degF] Natty Jaramillo LPN [facility] Work Phone: Comment on above: Method: Oral 05-29-2007 12:02-0400 Body weight 0 kg Natty Jaramillo LPN [facility] Work Phone: 05-29-2007 12:02-0400 BP Diastolic 72 mm[Hg] Natty Jaramillo [employer] [facility] Work Phone: Comment on above: Patient Position: Sitting; Cuff Location : Left Arm; Cuff Size: Standard 05-29-2007 12:02-0400 BP Systolic 128 mm[Hg] Natty Jaramillo LPN [facility] Work Phone: Comment on above: Patient Position: Sitting; Cuff Location : Left Arm; Cuff Size: Standard 05-29-2007 12:02-0400 Head Circumference 0 cm Rachel Lo [facility] Work Phone: 05-29-2007 12:02-0400 Head Occipital-frontal circumference 0 cm Natty Jaramillo LPN [facility]; [facility] Work Phone: 05-29-2007 12:02-0400 Height 0 cm Natty Jaramillo [employer] [facility] Work Phone: 05-29-2007 12:02-0400 Pulse (Heart Rate) 82 /min Natty Jaramillo LPN [facility] Work Phone: Comment on above: Pattern: Regular 05-29-2007 12:02-0400 Respiratory Rate 21 /min Natty Jaramillo [employer] [facility] Work Phone: Comment on above: Pattern: Unlabored 05-29-2007 12:02-0400 Weight 0 kg Rachel Lo [facility] Work Phone: 04-30-2007 16:54-0400 Body Temperature 98.6 [degF] JOCELYN Strong LPN [facility] Work Phone: Comment on above: Method: Oral 04-30-2007 16:54-0400 Body weight 0 kg JOCELYN Strong LPN [facility] Work Phone: 04-30-2007 16:54-0400 BP Diastolic 74 mm[Hg] JOECLYN Strong LPN [facility] Work Phone: Comment on above: Patient Position: Sitting; Cuff Location : Left Arm; Cuff Size: Standard 04-30-2007 16:54-0400 BP Systolic 118 mm[Hg] JOCELYN Strong LPN [facility] Work Phone: Comment on above: Patient Position: Sitting; Cuff Location : Left Arm; Cuff Size: Standard 04-30-2007 16:54-0400 Head Circumference 0 cm Rachel Lo [facility] Work Phone: 04-30-2007 16:54-0400 Head Occipital-frontal circumference 0 cm JOCELYN Strong LPN [facility]; [facility] Work Phone: 04-30-2007 16:54-0400 Height 0 cm JOCELYN Strong LPN [facility] Work Phone: 04-30-2007 16:54-0400 Pulse (Heart Rate) 76 /min JOCELYN Strong LPN [facility] Work Phone: Comment on above: Pattern: Regular 04-30-2007 16:54-0400 Respiratory Rate 20 /min JOCELYN Strong LPN [facility] Work Phone: Comment on above: Pattern: Unlabored 04-30-2007 16:54-0400 Weight 0 kg Rachel Lo [facility] Work Phone: 02-13-2007 16:07-0400 Body [...] 02-13-2007 16:07-0400 Weight 0 kg Rachel Lo [facility] Medicine Work Phone: 01-30-2007 16:02-0400 Body [...] BP Systolic 100 mm[Hg] JOCELYN Strong LPN [facility] Internal Medicine Work Phone: Comment on above: Patient Position: Sitting; Cuff Location : Left Arm; Cuff Size: Standard 01-30-2007 16:02-0400 Head Circumference 0 cm Rachel Lo [facility] Internal Medicine Work Phone: 01-30-2007 16:02-0400 Head Occipital-frontal circumference 0 cm JOCELYN Strong [employer] [facility]; [facility] Work Phone: 01-30-2007 16:02-0400 Height 0 cm JOCELYN Strong [employer]ATION [employer]BER [facility] Work Phone: 01-30-2007 16:02-0400 Pulse (Heart Rate) 80 /min JOCELYN Strong [facility] Work Phone: Comment on above: Pattern: Regular 01-30-2007 16:02-0400 Respiratory Rate 20 /min JOCELYN Strong [facility] Work Phone: Comment on above: Pattern: Unlabored 01-30-2007 16:02-0400 Weight 0 kg Rachel Lo [facility] Internal Medicine Work Phone: 12-26-2006 15:38-0400 Body weight 0 kg Natty Jaramillo [facility] Internal Medicine Work Phone: 12-26-2006 15:38-0400 BP Diastolic 62 mm[Hg] Natty Jaramillo [facility] Medicine Work Phone: Comment on above: Patient Position: Sitting; Cuff Location : Left Arm; Cuff Size: Standard 12-26-2006 15:38-0400 BP Systolic 104 mm[Hg] Natty Jaramillo [facility] Work Phone: Comment on above: Patient Position: Sitting; Cuff Location : Left Arm; Cuff Size: Standard 12-26-2006 15:38-0400 Head Circumference 0 cm Rachel Lo [facility] Medicine Work Phone: 12-26-2006 15:38-0400 Head Occipital-frontal circumference 0 cm Natty Jaramillo LPN [facility]; [facility] Work Phone: 12-26-2006 15:38-0400 Height 0 cm Natty Jaramillo LPN [facility] Work Phone: 12-26-2006 15:38-0400 Pulse (Heart Rate) 76 /min Natty Jaramillo LPN [facility] Work Phone: Comment on above: Pattern: Regular 12-26-2006 15:38-0400 Respiratory Rate 16 /min Natty Jaramillo LPN [facility] Work Phone: Comment on above: Pattern: Unlabored 12-26-2006 15:38-0400 Weight 0 kg Rachel Lo [facility] Medicine Work Phone: 11-10-2006 14:16-0400 Body Temperature 99 [degF] Rachel Lo [facility] Work Phone: Comment on above: Method: Undefined 11-10-2006 14:16-0400 Body weight 0 kg Rachel Lo [facility] Work Phone: 11-10-2006 14:16-0400 BP Diastolic 60 mm[Hg] Rachel Lo [facility] Work Phone: Comment on above: Patient Position: Undefined; Cuff Locati on: Undefined; Cuff Size: Undefined 11-10-2006 14:16-0400 BP Systolic 108 mm[Hg] Rachel Lo [facility] Medicine Work Phone: Comment on above: Patient Position: Undefined; Cuff Locati on: Undefined; Cuff Size: Undefined 11-10-2006 14:16-0400 Head Circumference 0 cm Rachel Lo [facility] Work Phone: 11-10-2006 14:16-0400 Head Occipital-frontal circumference 0 cm Rachel Lo DO Work Phone: [facility]; [facility] Work Phone: 11-10-2006 14:16-0400 Height 0 cm Rachel Lo [facility] Medicine Work Phone: 11-10-2006 14:16-0400 Pulse (Heart Rate) 78 /min Rachel Lo [facility] Work Phone: Comment on above: Pattern: Regular 11-10-2006 14:16-0400 Respiratory Rate 16 /min Rachel Lo [facility] Medicine Work Phone: Comment on above: Pattern: Undefined 11-10-2006 14:16-0400 Weight 0 kg Rachel Lo [facility] Internal Medicine Work Phone: 09-12-2006 14:00-0500 Body weight Measured 182 {lbs} Rachel Lo [facility] Internal Medicine Work Phone: 05-17-2006 15:08-0400 Body Temperature 98.6 [degF] aRchel Lo [facility] Work Phone: Comment on above: Method: Undefined 05-17-2006 15:08-0400 Body weight 0 kg Rachel Lo [facility] Work Phone: 05-17-2006 15:08-0400 BP Diastolic 68 mm[Hg] Rachel Lo [facility] Medicine Work Phone: Comment on above: Patient Position: Sitting; Cuff Location : Left Arm; Cuff Size: Standard 05-17-2006 15:08-0400 BP Systolic 118 mm[Hg] Rachel Lo [facility] Medicine Work Phone: Comment on above: Patient Position: Sitting; Cuff Location : Left Arm; Cuff Size: Standard 05-17-2006 15:08-0400 Head Circumference 0 cm Rachel Lo [facility] Work Phone: 05-17-2006 15:08-0400 Head Occipital-frontal circumference 0 cm Rachel Lo DO Work Phone: [facility]; [facility] Work Phone: 05-17-2006 15:08-0400 Height 0 cm Rachel Lo [facility] [...] Facility Start: 04-11-2025 ambulatory Rachel Lo Facilit y:[facility] Start: 04-09-2025 ambulatory Durham Ganesh Facility:[facility] Start: 04-08-2025 ambulatory Rachel Lo Facilit y:[facility] Start: 03-31-2025 End: 03-31-[address] Rachel Lo DO -Laboratory Work Phone: Start: 03-31-2025 Registered Referred [facility] RIS K ASSESSMENT -Laboratory Work Phone: Start: 03-31-2025 End: 03-31-[address] Rachel Lo DO Work Phone: -Laboratory Start: 03-31-2025 End: 03-31-2025 ambulatory Rachel Lo Facility:[facility] Start: 10-31-2024 End: 10-31-[address] Rachel Lo DO Work Phone: [facility] Work Phone: Start: 10-31-2024 End: 10-31-[address] Rachel Lo DO -Outpatient Breast Imaging Work Phone: Start: 10-31-2024 End: 10-31-2024 ambulatory Rachel Lo Facility:[facility] Start: 05-01-2024 ambulatory Health Risk Assessment Facility:[facility] Start: 10-31-2023 End: 10-31-2023 ambulatory [facility] Work Phone: Start: 10-31-2023 End: 10-31-2023 Patient encounter procedure [facility]-Outpatient Breast Imaging Work Phone: Start: 04-28-2023 [...] Internal Medicine Start: 10-27-2022 End: 10-27-2022 ambulatory [facility] Work Phone: Start: 10-27-2022 End: 10-27-2022 Patient encounter procedure [facility]-Outpatient Breast Imaging Start: 10-25-2022 End: 10-25-2022 Annotation/Addendum Rachel Lo DO Work Phone: [facility] Start: 05-09-2022 End: 05-09-2022 Patient encounter procedure Rachel Lo DO Work Phone: [facility]; [facility] Work Phone: Start: 05-09-2022 End: 05-09-2022 Periodic preventive med est patient 40-64yrs Rachel Lo DO Work Phone: [facility] Start: 05-06-2022 End: 05-06-2022 ambulatory [facility] Work Phone: Start: 05-06-2022 End: 05-06-2022 Patient encounter procedure [facility]-Laboratory Start: 05-06-2022 End: 05-06-2022 Phone Encounter Rachel Lo DO Work Phone: [facility] Start: 05-06-2022 Registered Referred [facility] Health Start: 02-21-2022 End: 02-21-2022 Patient encounter status sohail Vargas [facility]; [facility] Work Phone: Start: 02-21-2022 End: 02-21-2022 Phone Encounter Rachel Lo DO Work Phone: [facility] Start: 10-21-2021 End: 10-21-2021 Prescription Refill Rachel Lo DO Work Phone: [facility] Start: 09-15-2021 End: 09-15-2021 Discharged Recurring [facility]-Massage Therapy, [facility] Start: 08-24-2021 End: 08-24-2021 Error Encounter Rachel Lo DO Work Phone: [facility] Start: 07-30-2021 End: 07-30-2021 Annotation/Addendum Rachel Lo DO Work Phone: [facility] Start: 04-27-2021 End: 04-27-2021 Emergency department patient visit [facility] Start: 04-15-2021 End: 04-16-2021 Patient encounter status [...] End: 01-20-2020 Phone Encounter Rachel Teresita [facility] [employer] [employer] [facility] Start: 12-27-2019 End: 12-27-2019 Office outpatient visit 15 minutes Rachel Teresita [facility] Start: 12-26-2019 End: 12-26-2019 Phone Encounter Rachel Lo [facility] [employer] [facility] Start: 12-25-2019 End: 12-25-2019 Annotation/Addendum Rachel Lo [facility] [employer] [facility] Start: 12-24-2019 End: 12-24-2019 Office outpatient visit 15 minutes Rachel Teresita [facility] Start: 05-02-2019 End: 05-02-2019 Patient encounter status Rachel Lo DO Work Phone: [facility] Start: 05-02-2019 End: 05-02-2019 Periodic preventive med est patient 18-39 yrs Rachel Teresita [facility] Start: 02-21-2019 Review Rachel Lo Compreh ensive Internal Medicine Start: 02-21-2019 End: 02-21-2019 Phone Encounter Rachelmarvin Lo [facility] [employer] [facility] Start: 02-21-2019 End: 02-21-2019 Office outpatient visit 15 minutes Rachelmarvin Lo [facility] Start: 12-24-2018 End: 12-27-2018 Office outpatient visit 15 minutes Rachel Lo [facility] Start: 12-24-2018 Review Rachel Lo Compreh ens[facility] Internal Medicine Start: 07-17-2018 End: 07-17-2018 Annotation/Addendum Rachelmarvin Lo [facility] [employer] [facility] Start: 07-17-2018 End: 07-17-2018 Office outpatient visit 15 minutes Rachelmarvin Pateon [facility] Medicine Start: 12-05-2017 End: 12-05-2017 Phone Encounter Rachelmarvin Lo [facility] [employer] [facility] Start: 09-15-2017 End: 09-15-2017 Phone Encounter Rachelirma Lo [facility] [employer] [facility] Start: 06-16-2017 End: 06-16-2017 Office outpatient visit 15 minutes Rachel Lo [facility] Start: 04-19-2017 End: 04-19-2017 Patient encounter procedure Rachel Lo DO Work Phone: [facility] Start: 04-19-2017 End: 04-19-2017 Periodic preventive med est patient 18-39 yrs Rachel Lo [facility] Start: 12-13-2016 End: 12-13-2016 Office outpatient visit 15 minutes Rachel Teresita [facility] Start: 05-02-2016 End: 05-02-2016 Periodic preventive med est patient 18-39 yrs Rachel Lo [facility] Start: 05-02-2016 End: 05-02-2016 Physical examination Rachel Lo DO Work Phone: [facility] Start: 07-03-2015 End: 07-03-2015 Office outpatient visit 15 minutes Rachel Lo [facility] Start: 05-05-2015 End: 05-05-2015 Patient encounter procedure Rachel Lo DO Work Phone: [facility] Start: 05-05-2015 End: 05-05-2015 Periodic preventive med est patient 18-39 yrs Rachel Pateon [facility] Start: 08-06-2014 End: 08-06-2014 Office outpatient visit 15 minutes Rachel Lo [facility] Start: 05-26-2014 End: 05-26-2014 Office outpatient visit 15 minutes Rachelmarvin Pateon [facility] Start: 05-14-2014 End: 05-14-2014 Patient encounter procedure Rachel Lo DO Work Phone: [facility] Start: 05-14-2014 End: 05-14-2014 Periodic preventive med est patient 18-39 yrs Rachel Pateon [facility] Start: 03-04-2014 End: 03-04-2014 Office outpatient visit 15 minutes Rachel Lo [facility] Start: 01-23-2014 End: 01-23-2014 Patient encounter procedure Rachel Teresita [facility] Internal [facility] Start: 01-13-2014 End: 01-13-2014 Patient encounter procedure Rachel Lo [facility] Start: 07-25-2013 End: 07-25-2013 Patient encounter procedure Rachel Lo [facility] Start: 07-04-2013 End: 07-04-2013 Patient encounter procedure Rachel Teresita [facility] Start: 06-20-2013 End: 06-20-2013 Patient encounter procedure Rachel Lo [facility] Start: 05-24-2013 End: 05-24-2013 Office outpatient visit 25 minutes Rachel Lo [facility] Start: 05-20-2013 End: 05-20-2013 Patient encounter procedure Rachel Lo [facility] Start: 05-02-2013 End: 05-02-2013 Patient encounter procedure Rachel Lo [facility] Start: 06-28-2012 End: 06-28-2012 Patient encounter procedure Rachel Teresita [facility] Start: 05-25-2012 End: 05-25-2012 Office outpatient visit 15 minutes Rachel Lo [facility] Start: 04-23-2012 End: 04-23-2012 Patient encounter procedure Rachel Lo [facility] Start: 03-01-2012 End: 03-01-2012 Patient encounter procedure Rachel Lo [facility] Start: 01-06-2012 End: 01-06-2012 Phone Encounter Rachel Lo [facility] [employer] [facility] Start: 01-04-2012 End: 01-04-2012 Patient encounter procedure Rachel Lo [facility] Start: 09-05-2011 End: 09-05-2011 Patient encounter procedure Rachel [facility] Start: 01-28-2011 End: 01-28-2011 Patient encounter procedure Rachel Teresita [facility] Start: 11-11-2010 End: 11-11-2010 Office outpatient visit 25 minutes Rachel Cox [facility] Start: 08-30-2010 End: 08-30-2010 Patient encounter procedure Rachel Lo [facility] Start: 01-15-2010 End: 01-15-2010 Office outpatient visit 15 minutes Rachel Lo [facility] Start: 12-15-2009 End: 12-15-2009 Patient encounter procedure Rachel Lo [facility] Start: 10-22-2009 End: 10-22-2009 Office outpatient visit 25 minutes Rachel Lo [facility] Start: 10-09-2009 End: 10-09-2009 Annotation/Addendum Rachel Lo [facility] [employer] [employer] [facility] Start: 10-06-2009 End: 10-06-2009 Office outpatient visit 15 minutes Rachel Lo [facility] Start: 10-01-2009 End: 10-01-2009 Phone Encounter Rachel Lo [facility] [employer] [facility] Start: 07-01-2009 End: 07-01-2009 Patient encounter procedure Rachel Lo [facility] Start: 04-02-2009 End: 04-02-2009 Office outpatient visit 15 minutes Rachel Lo [facility] Start: 11-27-2008 End: 11-27-2008 Office outpatient visit 15 minutes Rachel Lo [facility] Start: 11-20-2008 End: 11-20-2008 Patient encounter procedure Rachel Lo [facility] Start: 09-29-2008 End: 09-29-2008 Patient encounter procedure Rachel Lo [facility] Start: 09-02-2008 End: 09-02-2008 Patient encounter procedure Rachel Lo [facility] Start: 05-05-2008 End: 05-05-2008 Patient encounter procedure Rachel Lo [facility] Start: 01-17-2008 End: 01-17-2008 Office outpatient visit 25 minutes Rachel Lo [facility] Start: 05-29-2007 End: 05-29-2007 Office outpatient visit 25 minutes Rachel Lo [facility] Start: 04-30-2007 End: 04-30-2007 Office outpatient visit 15 minutes Rachel Lo [facility] Start: 02-13-2007 End: 02-13-2007 Office outpatient visit 10 minutes Rachel Lo [facility] Start: 01-30-2007 End: 01-30-2007 Patient encounter procedure Rachel Lo [facility] Start: 12-26-2006 End: 12-26-2006 Patient encounter procedure Rachel Lo [facility] Start: 11-10-2006 End: 11-10-2006 Office outpatient visit 15 minutes Rachel Lo [facility] Start: 05-17-2006 End: 05-17-2006 Patient encounter procedure Rachel Lo [facility] Start: 05-16-2006 End: 05-16-2006 Historical Summary Rachel Lo [facility] [employer] [facility] Patient encounter procedure Laisha Chin [facility]; [facility] Work Phone: Patient encounter procedure Jenny Rizvi RN [facility]; [facility] Work Phone: Patient encounter procedure Shiraz Gray PRESENTATION TEAM MEMBER [facility]; [facility] Work Phone: Patient encounter procedure Cara Arteaga LPN [facility]; [facility] Work Phone: Patient encounter procedure Alissa Cummings [facility]; [facility] Work Phone: End: 11-25-2022 Patient encounter procedure Yareli Cleary LPN [facility]; [facility] Work Phone: Patient encounter status Laisha Chin [facility]; [facility] Work Phone: Patient encounter status Cara Arteaga LPN [facility]; [facility] Work Phone: Patient encounter status Laisha Chin [facility]; [facility] Work Phone: Patient encounter status Alissa Cummings [facility]; [facility] Work Phone: Patient encounter status Alissa Cummings [facility]; [facility] Work Phone: Patient encounter status Lisa James MA [facility]; [facility] Work Phone: Patient encounter status Lisa Dominguezarianne ROWLEY [facility]; [facility] Work Phone: Patient encounter status Steve Moise PRESENTATION TEAM MEMBER [facility]; [facility] Work Phone: Patient encounter status Yareli Celary PRESENTATION TEAM MEMBER [facility]; [facility] Work Phone: Patient encounter status Steve Moise PRESENTATION TEAM MEMBER [facility]; [facility] Work Phone: Physical examination Milena Reyes [facility]; [facility] Work Phone: [...] Visit Report Procedure Note: See Note; NOTES: [facility] [address] [place] [address] OFFICE VISIT Date of Service: 11/02/22 MR#: [id number] Acct: [id number] Name: AFSHAN DON Rep #: [id number] Provider: ARETHA Cordova Age/Sex: 42/F Location: [facility] Status: Signed Intake Vital Signs 11/02/22 12:02 [...] History (Updated 08/24/21 @ 12:58 by Odalys Paul, RN) S/P wisdom tooth extraction Family History (Updated 08/24/21 @ 12:58 by Odalys Paul, RN) Other Diabetes Heart disease Hypertension Kidney [...] bronchitis: Status: Acute Medications: New methylprednisolone (Medrol (Berto)) 4 mg PO PER [...] (CAD)W/MYRA BILAT Procedure Note: See Note; NOTES: [facility] Imaging Services [address] [place] [address] SCRN MAMM (CAD)W/MYRA BILAT MR#: [id number] Acct: [id number] Name: AFSHAN DON Rep #: [id number] : 1980 F 42 From: Yaya Patiño MD PCP: Dr. Rachel Lo, Status: REG CLI Study: SCRN MAMM (CAD)W/MYRA BILAT Date of Exam: 10/12 02/03 Exam# [id number] Ordering Dr: Rachel Lo DO MAMMOGRAPHY - [...] EDT , CC: Dr. Rachel Lo DO Extractor Filler: Signed Rachel Lo DO Work Phone: Start: 08-24-2021 End: 08-24-2021 Urgent Care Visit Report Comments: See Note; NOTES: [facility] [address] [place] [address] OFFICE VISIT Date of Service: 08/24/21 MR#: [id number] Acct: [id number] Name: AFSHAN DON Rep #: [id number] : 1980 Provider: ARETHA Cordova Age/Sex: 40/F Location: [facility] Status: Signed Intake Vital Signs 08/24/21 12:51 [...] 07-29-2021 Discharge Summary Comments: See Note; NOTES: [facility] Medical Records Department [address] [place] [address] Discharge Summary 07/29/21 1842 MR#: [id number] Acct: [id number] Name: AFSHAN DON Rep #: [id number] : 1980 40 From: Jennifer Pino PCP: Dr. Rachel Lo DO Status:REG RCR Location: [facility] [...] is being discharged from our care at [facility] facility. 07/29/21 190 <Electronically signed by Jennifer Pino > Cosigner Signature (if applicable): CC: Dr. Rachel Lo, DO; Jennifer Pino Signed Rachel Lo DO Work Phone: Start: 10-08-2020 End: 10-08-2020 Orthopedic Visit Report Comments: See Note; NOTES: [facility] [address] [place], [place] [address] OFFICE VISIT Date of Service: 10/08/20 MR#: [id number] Acct: [id number] Name: AFSHAN DON Rep #: [id number] : 1980 Provider: Dr. Aruna galloway DO Age/Sex: 39/F Location: [facility] Status: Signed Intake Intake Visit Reasons: RIGHT [...] PO DAILY PRN 01/22/20 [History Confirmed 10/08/20] PFSH Social History (Updated 10/08/20 @ 12:11 by [...] PA and Lateral Comments: See Note; NOTES: [facility] Imaging Services [address] [place] [address] Chest PA and Lateral MR#: [id number] Acct: [id number] Name: AFSHAN DON Rep #: [id number] : 1980 F 39 From: Chas mays MD PCP: Dr. Rachel Lo DO Status: REG CLI Study: Chest PA and Lateral Date of Exam: 09/07/20 Exam# [id number] Ordering Dr: Debra Simms NP CUSTOMER FIELD REPRESENTATIVE-C STUDY: X-RAY CHEST REASON FOR EXAM: Female, [...] CC: MARY Simms; Dr. Rachel Lo DO Extractor Filler: Signed Debra Simms Work Phone: Start: 09-02-2020 End: 09-02-2020 Massage Therapy Evaluation Comments: See Note; NOTES: [facility] [address] [place] [address] / REHABILITATION SERVICES INITIAL EVALUATION MR#: [id number] Acct: [id number] Name: AFSHAN DON Rep #: [id number] : 1980 39 From: Jennifer Pino Referring Dr.: Dr. Rachel Lo, DO Status: REG RCR Insurance: [facility] SELF PAY INSURANCE Massage Therapy Evaluation: Initial Evaluation Date: 09/02/2020 SUBJECTIVE: Afshan is a 39 year old female who was referred to the [facility] facility for a massotherapy evaluation by Dr. [...] Orthopedic Visit Report Comments: See Note; NOTES: [facility] Sports Medicine [address] [place] [address] [place] [address] OFFICE VISIT Date of Service: 07/16/20 MR#: [id number] Acct: [id number] Name: AFSHAN DNO Rep #: [id number] : 1980 Provider: Dr. Aruna galloway DO Age/Sex: 39/F Location: [facility] Status: Signed Intake Intake Visit Reasons: RIGHT KNEE Chief Complaint: post-op right knee Allergies No Known Allergies Allergy (Verified 04/21/20 10:08) [facility] Social History (Updated 07/16/20 @ 16:18 by [...] Aruna Liu DO> Date Aruna Liu DO Cosign Signature: Date (if applicable) CC: Rachel Lo Start: 04-21-2020 End: 04-21-2020 Orthopedic Visit Report Comments: See Note; NOTES: [facility] Orthopa[facility] Sports Medicine [address] [place] [address] OFFICE VISIT Date of Service: 04/21/20 MR#: [id number] Acct: [id number] Name: ARIANAFSHANINE Rep #: [id number] : 1980 Provider: Dr. Aruna galloway DO Age/Sex: 39/F Location: [facility] Status: Signed Intake Intake Visit Reasons: R [...] History (Updated 04/21/20 @ 11:[address] Aurna Liu, DO) Smoking Status: Never smoker HPI R Knee: Details: Parts of this documentation were recorded by a scribe, this documentation accurately reflects the service provided and the decisions made by me, Dr. Aruna Liu, DO 04/21/20 1003. AFSHAN DON is a 39 [...] - PT (1) Comments: See Note; NOTES: [facility] Physical Therapy [address] [place] [address] / REEVALUATION / MEDICARE RECERTIFICATION PHYSICAL THERAPY MR#: [id number] Acct: [id number] Name: AFSHAN DON Rep #: [id number] : 1980 39 From: Lew Lackey DPT Referring Dr.: Dr. Aruna Liu DO Status:R EG RCR Insurance: [facility] SELF PAY INSURANCE Dr. Aruna Liu DO, It has been my pleasure to [...] do not hesitate to contact me at [phone] by phone or if you have questions [...] - PT (1) Comments: See Note; NOTES: [facility] [address] [facility] [place] [address] / REEVALUATION / MEDICARE RECERTIFICATION PHYSICAL THERAPY MR#: [id number] Acct: [id number] Name: AFSHAN DON Rep #: [id number] : 1980 39 From: Lew Lackey DPT Referring Dr.: Dr. Aruna Liu DO Status:R EG RCR Insurance: [facility] SELF PAY INSURANCE Dr. Aruna Liu, [...] do not hesitate to contact me at [phone] by phone or if you have questions or concerns regarding this new plan of care! Sincerely, KAY ArthurT <Electronically signed by Lew Lackey DPT> 04/01/20 1133 CC: Dr. Aruna Liu DO; Dr. Rachel Lo DO CLS Signed For Medicare only, by signing this I certify the plan of care. Physicians Signature Date Rachel Lo Start: 03-12-2020 End: 03-12-2020 Re-Evaluation - PT (1) Comments: See Note; NOTES: [facility] [address] [place] [address]. [address] [place] [address] / REEVALUATION / MEDICARE RECERTIFICATION PHYSICAL THERAPY MR#: [id number] Acct: [id number] Name: AFSHAN DON #: [id number] : 1980 39 From: Lew Lackey DPT Referring Dr.: Dr. Aruna Liu DO Status:R EG RCR Insurance: [facility] SELF PAY INSURANCE Dr. Aruna Liu, [...] do not hesitate to contact me at [phone] by phone or if you have questions or concerns regarding this new plan of care! Sincerely, Lew Lackey DPT <Electronically signed by Lew Lackey DPT> 03/12/20 1109 CC: Dr. Aruna Liu DO; Dr. Rachel Lo DO CLS Signed For Medicare only, by signing this I certify the plan of care. Physicians Signature Date Rachel Lo Start: 03-05-2020 End: 03-05-2020 Orthopedic Visit Report Comments: See Note; NOTES: [facility] [address] [place] [address] OFFICE VISIT Date of Service: 03/05/20 MR#: [id number] Acct: [id number] Name: AFSHAN DON Rep #: [id number] : 1980 Provider: ARETHA Solano Age/Sex: 39/F Location: [facility] Status: Signed Intake Intake Visit Reasons: RIGHT KNEE Is patient in pain?: No Allergies No Known Allergies Allergy (Verified 03/05/20 08:21) [facility] Social History (Updated 03/05/20 @ 16:24 by ARETHA Zamora) Smoking Status: Never smoker HPI RIGHT KNEE: Details: Parts of this documentation were recorded by a scribe, this documentation accurately reflects the service provided and the decisions made by me, ARETHA Zamora 03/05/20 0815. AFSHAN DON is [...] or symptoms This note was generated with [employer] dictation software. It may contain incorrect words, spelling, and punctuation that were not noted in checking the note before signing. Coding Level of Care Code Global Post Op Diagnoses Orthopedic aftercare Z47.89 03/05/20 1624 <Electronically signed by David CARIAS> Date David CARIAS Cosigner Signature: Date (if applicable) CC: Rachel Lo Start: 02-12-2020 End: 02-12-2020 Inital Evaluation (1) - PT Comments: See Note; NOTES: [facility] [address] [place] [address] / REHABILITATION SERVICES INITIAL EVALUATION MR#: [id number] Acct: [id number] Name: AFSHAN DON Rep #: [id number] : 1980 39 From: Lew Lackey DPT Referring Dr.: Dr. Aruna Liu DO Status: REG RCR Insurance: [employer] [employer] [facility] [employer] SELF PA[employer] INSURANCE Patient's Visit Information AFSHAN DON is a 39 year old F referred to Physical Therapy by Dr. Aruna Liu, DO with a diagnosis of R ACL repair DOS: 01/29/20. Date of Evaluation: 02/12/20 Physical Therapist: Lew Lackey DPT - Visit Plan Frequency: 2-3x /Week Duration: [...] Pt. consents. 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 Pt. is hopeful to increase her ROM [...] to be FAXED BACK to us at [phone] for Medicare purposes. For Medicare only, by [...] Orthopedic Visit Report Comments: See Note; NOTES: [facility] [address] [place] [address] OFFICE VISIT Date of Service: 02/11/20 MR#: [id number] Acct: [id number] Name: AFSHAN DON Rep #: [id number] : 1980 Provider: Dr. Aruna galloway DO Age/Sex: 39/F Location: [facility] Status: Signed Intake Intake Visit Reasons: right knee Chief Complaint: right knee Allergies No Known Allergies Allergy (Verified 01/22/20 08:54) [facility] Social History (Updated 02/11/20 @ 10:54 by [...] Orthopedic Visit Report Comments: See Note; NOTES: [facility] [address] [place] [address] OFFICE VISIT Date of Service: 02/03/20 MR#: [id number] Acct: [id number] Name: AFSHAN DON Rep #: [id number] : 1980 Provider: ARETHA Solano Age/Sex: 39/F Location: [facility] Status: Signed Intake Intake Visit Reasons: right knee Chief Complaint: right knee Allergies No Known Allergies Allergy (Verified 01/22/20 08:54) [facility] Social History (Updated 02/03/20 @ 12:32 by ARETHA Zamora) Smoking Status: Never smoker HPI right knee: Details: Parts of this documentation were recorded by a scribe, this documentation accurately reflects the service provided and the decisions made by David tom PA 02/03/20 0919. AFSHAN DON is a 39 [...] postop check. This note was generated with [employer] dictation software. It may contain incorrect words, spelling, and punctuation that were not noted in checking the note before signing. Coding Level of Care Code Global Post Op Diagnoses Orthopedic aftercare Z47.89 02/03/20 1232 <Electronically signed by David CARIAS> Date David CARIAS Cosigner Signature: Date (if applicable) CC: Rachel Lo Start: 01-29-2020 End: 02-06-2020 Operative Report Comments: See Note; NOTES: [facility] Medical Records Department [address] [place] [address] Operative Report 01/29/20 0748 MR#: [id number] Acct: [id number] Name: AFSHAN DON Rep #: [id number] : 1980 39 From: Aruna Liu DO PCP: Dr. Rachel Lo, DO Status:[facility] Location: [facility] Report of Operation Date of Procedure: 01/29/20 Pre-Operative Diagnosis: right knee acl tear Post-Operative Diagnosis: same Surgery/Procedure Performed:: right knee arthroscopy, acl reconstruction with allograft/arthrex graft link home health aide: David Solano Type of Anesthesia:: General Anesthesiologist: Calvin Roberts Specimen's removed: tt-70 min Estimated Blood Loss (mL): 20 Fluids Replaced: 1000ml lr Description of Procedure: Preop note Patient is a 39-year-old female who sustained an injury to her right knee 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 Immediate pain and instability and was seen by my physician's compounding assistant. Patient has continued stability MRI confirms [...] the risk of sarah COVID-19 while at [facility] is very low, however, the risk [...] to comply with any screening or testing [facility] wishes to perform or that surgery [...] 2 weeks This note was generated with CargoSpotteration software. It may contain incorrect words, spelling, and punctuation that were not noted in checking the note before signing. 02/06/20 1154 <Electronically signed by Aruna Liu DO> Date Aruna Liu DO CC: Dr. Aruna Liu DO; Dr. Rachel Lo DO Signed Rachel Lo Start: 01-29-2020 End: 01-29-2020 Discharge Instruction Comments: See Note; NOTES: [facility] Medical Records Department [address] [place] [address] Instructions for Home/Discharge Instructions 01/29/20 0747 MR#: [id number] Acct: [id number] Name: AFSHAN DON Rep #: [id number] : 1980 39 From: Aruna Liu DO PCP: Dr. Rachel Lo DO Status:REG MSC Discharge Diet: No Restrictions - Remove dressings [...] PO DAILY PRN 01/22/20 Hydrocodone Bitart/Apap 5-325 [[place] 5MG-325MG] 1 - 2 tablet PO Q6H PRN PRN 5 Days #40 tablet 01/29/20 Ondansetron [Zofran] 8 mg PO Q8H PRN PRN #20 tab 01/29/20 The following prescriptions were given: Hydrocodone Bitart/Apap 5-325 [[place] 5MG-325MG] 1 - 2 tablet PO Q6H PRN PRN 5 Days #40 tablet PRN Reason: Pain Transmission Status: Sent to [facility] Ondansetron [Zofran] 8 mg PO Q8H PRN PRN #20 tab PRN Reason: Nausea Transmission Status: Pending to [facility] Primary Care Physician: Rachel Lo DO [Primary Care Provider] - Test Results: Test results from this visit will be discussed in further detail at your follow-up appointment, if applicable. Please Follow Up With: Aruna Liu DO - [phone] 01/29/20 0748 <Electronically signed by Aruna Liu DO> Date Aruna Liu DO CC: Dr. Rachel Lo DO Signed Rachel Lo Start: 01-28-2020 End: 01-28-2020 History and Physical Exam Comments: See Note; NOTES: [facility] Medical Records Department [address] [place] [address] History and Physical 01/28/20 5105 MR#: [id number] Acct: [id number] Name: AFSHAN DON Rep #: [id number] : 1980 39 From: Aruna Liu DO PCP: Dr. Rachel Lo, DO Status:PRE [facility] Y Location: [facility] History and Physical I have re-examined the patient. There are no clinical changes since date of exam. We discussed the current risk associated COVID-19. While it is understood that there is a community spread of COVID 19 the risk of sarah COVID-19 while at [facility] is very low, however, the risk [...] to comply with any screening or testing [facility] wishes to perform or that surgery [...] the decisions made by , ARETHA Zamora 12/27/19 0923. AFSHAN DON is a 39 year old [...] the meantime. This note was generated with CargoSpotteration software. It may contain incorrect words, spelling, [...] Returning Pt (1) Comments: See Note; NOTES: [facility] Physical Therapy Health[address] [place] [address] / REHABILITATION SERVICES DISCHARGE SUMMARY MR#: [id number] Acct: [id number] Name: AFSHAN DON Rep #: [id number] : 1980 39 From: Lew Lackey DPT Referring DrJelly: MARY Simms Status: REG RCR Insurance: [facility] SELF PAY INSURANCE AFSHAN DON was [...] found appropriate by the physician. Thank you! Lew Lackey DPT <Electronically signed by Lew Lackey DPT> 01/26/20 1144 CC: MARY Simms; Dr. Rachel Lo DO CLS Signed Rachel Lo Start: 12-27-2019 End: 12-27-2019 /JOSEPHINE Comments: See Note; NOTES: [facility] [address] [place] [address] OFFICE VISIT Date of Service: 12/27/19 MR#: [id number] Acct: [id number] Name: AFSHAN DON Rep #: [id number] : 1980 Provider: ARETHA Solano Age/Sex: 39/F Location: [facility] Status: Signed Intake Vital Signs 12/27/19 Height [...] the meantime. This note was generated with SNAPin Software dictation software. It may contain incorrect words, [...] End: 12-26-2019 PT/HP.PTEVAL Comments: See Note; NOTES: [facility] [address] [place] [address]. [address] [place] [address] / REHABILITATION SERVICES INITIAL EVALUATION MR#: [id number] Acct: [id number] Name: ALDAIRTASIAKELLYN CARLOS Rep #: [id number] : 1980 39 From: Lew Lackey DPT Referring Dr.: MARY Simms Status: REG RCR Insurance: [facility] SELF PAY INSURANCE Patient's Visit Information AFSHAN DON is a 39 year old F referred to Physical Therapy by MARY Fuller with a diagnosis of R knee pain. Date of Evaluation: 12/25/19 Physical Therapist: KAY ArthurT - Visit Plan Frequency: 2x /Week Duration: [...] to be FAXED BACK to us at [phone] for Medicare purposes. For Medicare only, by signing this I certify the plan of care. Please let me know if there are questions or concerns regarding this plan of care. Physician Signature: _Date: <Electronically signed by Lew Lackey DPT> 12/26/19 0849 CC: MARY Simms; Dr. Rachel Lo DO CLS Signed Rachel Lo Start: 12-26-2019 End: 12-26-2019 Lower Ext Joint Only (Routine) Comments: See Note; NOTES: [facility] Imaging Services [address] [place] [address] Lower Ext Joint Only (Routine) MR#: [id number] Acct: [id number] Name: AFSHAN DON Rep #: [id number] : 1980 F 39 From: Calvin acuña DO PCP: Dr. Rachel Lo, Status: REG CLI Study: Lower Ext Joint Only (Routine) Date of Exam: 0 12/26/19 Exam# [id number] Ordering Dr: Debra SimmsC STUDY: MRI LEFT [...] CC: MARY Simms; Dr. Rachel Lo DO Extractor Filler: Signed Debra Simms Work Phone: Start: 12-24-2019 End: 12-25-2019 Knee 4 or More Views Comments: See Note; NOTES: [facility] Imaging Services [address] [place] [address] Knee 4 or More Views MR#: [id number] Acct: [id number] Name: AFSHAN DON Rep #: [id number] : 1980 F 39 From: Carina Barton MD PCP: Dr. Rachel Lo DO Status: REG CLI Study: Knee 4 or More Views Date of Exam: 12/24/19 Exam# [id number] Ordering Dr: Debra Simms CUSTOMER FIELD REPRESENTATIVE-Rosie STUDY: X-RAY - RIGHT KNEE REASON FOR [...] EDT Tel , Service support , CC: CUSTOMER FIELD REPRESENTATIVEJhon Simms; Dr. Rachel Lo DO Extractor Filler: Signed Debra Simms Work Phone: Start: 03-26-2019 End: 03-26-2019 PT D/C Summary (1) Comments: See Note; NOTES: [facility] Physical Therapy Health[address] [place] [address] / REHABILITATION SERVICES DISCHARGE SUMMARY MR#: [id number] Acct: [id number] Name: AFSHAN DON Rep #: [id number] : 1980 38 From: Calvin Murdock DPT, HOSSEIN, CSCS Referring DrJelly: Rachel Lo DO Status: REG RCR Insurance: [facility] SELF PAY INSURANCE HP - PT [...] please feel free to call me at [phone]. Thank you for the referral of this patient. Sincerely, Calvin Murdock DPT, OCS, CSCS <Electronically signed by HOSSEIN Cooley DPT, CSCS> 03/26/19 1845 CC: Rachel Lo DO EBG Signed Rachel Lo Start: 01-03-2019 End: 01-03-2019 Inital Evaluation (1) - PT Comments: See Note; NOTES: [facility] Physical Therapy [facility] [place] [address] / REHABILITATION SERVICES INITIAL EVALUATION MR#: [id number] Acct: [id number] Name: AFSHAN DON Rep #: [id number] : 1980 38 From: Calvin VILLANUEVAT, OCS, CSCS Referring Dr.: Rachel Lo DO Status: REG RCR Insurance: [facility] SELF PAY INSURANCE Patient's Visit Information [...] Sationary bike and rwoer hurt. 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 For Medicare only, by signing this I certify the plan of care. Please let me know if there are questions or concerns regarding this plan of care. Physician Signature: _Date: <Electronically signed by Calvin Murdock DPT, OCS, CSCS> 01/03/19 0926 CC: Rachel Lo DO EBG Signed Rachel Lo Start: 12-24-2018 End: 12-24-2018 HIP, UNI W/ Pelvis 2-3 Views Comments: See Note; NOTES: [facility] Imaging Services [address] [place] [address] HIP, UNI W/ Pelvis 2-3 Views MR#: [id number] Acct: [id number] Name: AFSHAN DON Rep #: [id number] : 1980 F 38 From: Yaya Patiño MD PCP: Rachel Lo DO Status: REG CLI Study: HIP, UNI W/ Pelvis 2-3 Views Date of Exam: 12/24/18 Exam# [id number] Ordering Dr: Rachel Lo DO STUDY: X-RAY [...] Service support , CC: Rachel Lo DO Extractor Filler: Signed Rachel Lo Work Phone: Start: 06-05-2018 End: 06-05-2018 Breast w/o and/or W Cont Bilat Comments: See Note; NOTES: [facility] Imaging Services [address] [place] [address] Breast w/o and/or W Cont Bilat MR#: [id number] Acct: [id number] Name: AFSHAN DON Willy Rep #: [id number] : 1980 F 37 From: Ricky George MD PCP: Rachel Lo DO Status: REG CLI Study: Breast w/o and/or W Cont Bilat Date of Exam: 06/05/18 Exam# [id number] Ordering Dr: Aruna Saucedo MD STUDY: BILATERAL [...] CC: Aruna Saucedo MD; Rachel Lo DO Extractor Filler: Signed Rachel Lo Start: 05-08-2018 End: 05-08-2018 SCREENING MAMM (CAD), BILAT Comments: See Note; NOTES: [facility] Imaging Services [address] [place] [address] SCREENING MAMM (CAD), BILAT MR#: [id number] Acct: [id number] Name: AFSHAN DON Rep #: [id number] : 1980 F 37 From: Chas Rooney MD PCP: Rachel Lo DO Status: REG CLI Study: SCREENING MAMM (CAD), BILAT Date of Exam: 05/08/18 Exam# [id number] Ordering Dr: Aurna Saucedo MD MAMMOGRAPHY - BILATERAL SCREENING REASON [...] delay biopsy of a clinically suspicious abnormality. [id number] Electronically Signed: Chas Rooney MD at 8:26 EDT Tel [phone], Service support , CC: Aruna Saucedo MD; Rachel Lo DO Extractor Filler: Signed Rachel Lo Start: 08-09-2016 End: 08-09-2016 PT Discharge Summary Comments: See Note; NOTES: [facility] [address] [facility] [place] [address] Fax REHABILITATION SERVICES DISCHARGE SUMMARY MR#: [id number] Acct: [id number] Name: ARIANAFSHAN P Rep #: [id number] : 1980 35 From: Anaid Cordova Referring Dr.: Rachel Lo DO Status: PRE RCR Eval Date: Discharge Date: DATE OF SERVICE: REFERRING PHYSICIAN: Rachel Lo D.O. This patient was seen on 09/07/2015 with a diagnosis of scoliosis. She was treated with 6 sessions of deep tissue massage focusing on her upper body, cervical, thoracic and lumbar regions of her back. The patient responded well to treatment reporting a decrease in pain and muscle tension. At this time, I am discharging the patient from our care at the [facility] facility. Anaid Cordova LMT T: NTS JOB: [id number] <Electronically signed by Anaid Cordova > 08/09/16 1224 CC: Rachel Lo DO Signed Rachel Lo Start: 02-12-2015 End: 02-12-2015 Foot 2 Views Comments: See Note; NOTES: [facility] Imaging Services [address] [place] [address] Radiology Report MR#: [id number] Acct: [id number] Name: AFSHAN DON Rep #: [id number] : 1980 F 34 From: Chas Rooney MD PCP: Rachel Lo DO Status: REG CLI Study: Foot 2 Views Date of Exam: 02/12/15 Exam# [id number] Ordering Dr: Marlena Rodriguez STUDY: X-RAY - [...] Chas Rooney MD at 8:16 EDT Tel [phone], Service support [phone], RAD/Foot 2 Views IMPRESSION: Normal x-ray examination of the foot. Electronically Signed: Chas Rooney MD at 8:16 EDT Tel [phone], Service support [phone], CC: Rachel Rodriguez DPM Extractor Filler: Signed Rachel Lo Start: 08-27-2014 End: 09-16-2014 PT Discharge Summary Comments: See Note; NOTES: [facility] [place] [address] Fax REHABILITATION SERVICES DISCHARGE SUMMARY MR#: [id number] Acct: [id number] Name: ALDAIRTASIAKELLYArianne Aguilera Rep #: [id number] : 1980 33 From: Anaid Cordova Referring DrJelly: Rosmery Holden MD Status: DIS RCR Eval [...] the patient from our care at the [facility]. Anaid Cordova LMT T: NTS JOB: [id number] <Electronically signed by Anaid Cordova > 08/27/14 0747 CC: Signed Rachel Lo Start: 05-11-2007 Antibody screen Rachel Teresita Start: 10-29-2006 Antibody screen Rachel Teresita Start: 10-17-2006 Antibody screen Rachel Teresita Start: 07-04-2006 Antibody screen Rachel Teresita [...] Medicine; [facility] Work Phone: Start: 05-24-2023 Provider Instruction s for Treatment [facility] [...] stimulating hormone tsh TSH (THYROID STIMULATING HORMONE) (10045) [facility]; [facility] Work [...] Assay of thyroid stimulating hormone tsh TSH (23642) [facility]; [facility] Work Phone: Start: 09-11-2020 Procedure Education Eprescribe d prescriptions (G8553) [facility]; [facility] Work Phone: Start: 09-11-2020 C-reactive protein C-Reactive Protein (12805) [facility]; [facility] Work Phone: Comment on above: Fax to hospital to y Start: 09-11-2020 CRP [Mass/Vol] C-Reactive Pro tein (95757) [facility]; [facility] Work Phone: Comment on above: Fax to hospital to y Start: 09-11-2020 Sedimentation rate r bc automated Sedimentation Rate-ESR (97061) [facility]; [facility] Work Phone: Comment on above: fax to hospital to y Start: 09-07-2020 Procedure Education Eprescribe d prescriptions (G8553) [facility]; [facility] Work Phone: Start: 09-07-2020 Provider Instruction s for Treatment Follow up in 3 days [facility]; [facility] Work Phone: Start: 09-07-2020 Angiotensin i-converting enzyme ANGTENSIN 1-CONVRT ENZYM (01035) [facility]; [facility] Work Phone: Start: 09-07-2020 Antibody borrelia burgdorferi lyme disease Lyme Disease Antibody W/ Reflex (47017) [facility]; [facility] Work Phone: Start: 09-07-2020 Cyclic citrullinated peptide antibody CCP ANTIBODY (25637) [facility]; [facility] Work Phone: Start: 09-07-2020 Sedimentation rate r bc non-automated SED RATE ERYTHROCYTE (20818) [facility]; [facility] Work Phone: Start: 09-07-2020 C-reactive protein C-REACTIVE PROTEIN (68187) [facility]; [facility] Work Phone: Start: 09-07-2020 CRP [Mass/Vol] C-REACTIVE PRO TEIN (76510) [facility]; [facility] Work Phone: Start: 09-07-2020 Assay of thyroid stimulating hormone tsh TSH (18237) [facility]; [facility] Work Phone: Start: 09-07-2020 TSH Qn TSH (50891) [facility]; [facility] Work Phone: Start: 09-07-2020 Rheumatoid factor quantitative RHEUMATOID FACTOR-QUANT (56878) [facility]; [facility] Work Phone: Start: 09-07-2020 Antinuclear antibodi es adama ADAMA (ANTINUCLEAR ANTIBODY) (56315) [facility]; [facility] Work Phone: Start: 09-07-2020 Nuclear Ab IF (S) [Titer] ADAMA (ANTINUCLEAR ANTIBODY) (83050) [facility]; [facility] Work Phone: Start: 09-07-2020 Comprehensive metabo lic panel METABOLIC PANEL, COMPREHENSIVE (50670) [facility]; [facility] Work Phone: Start: 09-07-2020 Blood count manual c ell count each CBC with auto diff (15930) [facility]; [facility] Work Phone: Start: 09-07-2020 Immunoassay analyte qual/semiqual multiple step P-ANCA & C-ANCA (ANCA PROFILE) 26643 x2 and 19522 x2 [facility]; [facility] [...] qu an numbers & subclasses NMR Profile (68743) [facility] Work Phone: Start: 05-02-2019 Glucose [Mass/Vol] GLUCOSE (33712) C [facility] Work Phone: Start: 05-02-2019 Glucose quantitative blood xcpt reagent strip GLUCOSE (63643) [facility]; [facility] Work Phone: Start: 05-02-2019 Hpv, dna, amp probe HPV automatic (3 3714) [facility] Work Phone: Start: 02-21-2019 Patient Education Diarrhea, Acute, A dult [facility] Work Phone: Start: 02-21-2019 Procedure Education Eprescribe d prescriptions (J3311) [facility] Work Phone: Start: 02-21-2019 Provider Instruction s for Treatment Follow up if no improvement or if symptoms worsen [facility] Work Phone: Start: 02-21-2019 Comprehensive metabo lic panel METABOLIC PANEL, COMPREHENSIVE (93614) [facility] Work Phone: Start: 02-21-2019 Ova&parasites direct smears concentration & id OVA & PARASITE DIR SMEAR (19699) [facility] Work Phone: Start: 02-21-2019 Blood occult peroxid ase actv qual feces 1 deter OCCULT BLOOD FECES SCREEN (47796) [facility] Work Phone: Start: 02-21-2019 Iaad ia clostridium difficile toxin Clostridium difficile Toxin A+B, EIA (77264) [facility] Work Phone: Start: 02-21-2019 Leukocyte assmt feca l qual/semiquantitative LEUKOCYTE COUNT, FECAL (99221) [facility] Work Phone: Start: 02-21-2019 Cul bact stool aerob ic isol salmonella&shigell ANGELINA CULTURE-STOOL (31389) [facility] Work Phone: Start: 02-21-2019 Comprehensive metabo lic panel METABOLIC PANEL, COMPREHENSIVE (07079) [facility] Work Phone: Start: 02-21-2019 Blood count complete automated CBC & PLATELETS (AUTO) (24146) [facility] Work Phone: Start: 07-17-2018 [...] layer prep mnl screen Thin prep Pap (33312) [facility] Work Phone: Start: 01-23-2014 Hpv, dna, amp probe HPV automatic (5 0702) [facility] Work Phone: Start: 07-25-2013 [...] xcpt urine blood/stool aerobic isol CULTURE, SPUTUM (87641) [facility] Work Phone: Start: 05-20-2013 [...] 01-04-2012 Patient Education Poison [place], [place], and [place]: poison tasneem [facility] Work Phone: Start: 09-05-2011 Provider Instruction s for Treatment Diet, Exercise, and Wt loss [facility] Work Phone: Start: 01-28-2011 25 hydroxy includes fractions if performed CALCIFIDIOL (09455) VIT D 25 [facility] Work Phone: Start: 01-28-2011 Assay of thyroid stimulating hormone tsh TSH (69592) [facility]; [facility] Work Phone: Start: 01-28-2011 Thyrotropin Qn TSH (18214) Comprehe [facility] Work Phone: Start: 01-28-2011 Blood count complete automated CBC (Auto) (65200) [facility] Work Phone: Start: 01-28-2011 Comprehensive metabo lic panel Metabolic Panel, Comprehensive (97735) [facility] Work Phone: Start: 08-30-2010 Iaadiadoo streptococ cus group a Rapid Strep Test, Office (74522) [facility]; [facility] Work Phone: Start: 08-30-2010 S. pyogenes Ag IA Ql (Unsp spec) Rapid Strep Test, Office (42021) [facility] Work Phone: Start: 01-15-2010 [...] tq each organism MICROB ID NCL AC MI+AMP (78626) [facility] Work Phone: Start: 10-22-2009 Cul bact xcpt urine blood/stool aerobic isol ANGELINA CULTURE-OTHER (41568) [facility] Work Phone: Start: 07-01-2009 [...] Phone: Start: 01-17-2008 Lipid panel LIPID PANEL (65302) Com [facility] Work Phone: Comment on above: SCREEN Start: 05-29-2007 Provider Instruction s for Treatment Discussed with Patient [facility] Work Phone: Start: 04-30-2007 Provider Instruction s for Treatment [facility] Work Phone: Start: 01-30-2007 Cryoglobulin qualitative/semi-quanti tative CRYOGLOBULIN (96375) [facility] Work Phone: Start: 01-30-2007 Antinuclear antibodi es adama ADAMA (ANTINUCLEAR ANTIBODY) (04677) [facility]; [facility] Work Phone: Start: 01-30-2007 Nuclear Ab IF titer (S) ADAMA (A NTINUCLEAR ANTIBODY) (31923) [facility] Work Phone: Start: 01-30-2007 Sedimentation rate r bc non-automated Sed Rate Erythrocyte (83226) [facility] Work Phone: Start: 01-30-2007 Blood count complete automated CBC (Auto) (53716) [facility] Work Phone: Start: 01-30-2007 Comprehensive metabo lic panel Metabolic Panel, Comprehensive (91215) [facility] Work Phone: Comprehensive I [...] Immunizations Immunization Date Immunization Notes Care Provider [facility] 06-12-2024 influenza, seasonal, injectable, preservative free Dr. Rachel Lo DO Work Phone: [facility] 05-11-2023 influenza, injectabl e, quadrivalent, preservative free [facility] 05-13-2022 influenza, injectabl e, quadrivalent, preservative free [facility] 05-13-2022 influenza, seasonal, injectable [facility] 06-29-2021 Covid (Moderna) [facility] Work Phone: 05-12-2021 influenza, injectabl e, quadrivalent, preservative free [facility] 05-12-2021 influenza, seasonal, injectable [facility] 09-14-2020 Covid (Moderna) [facility] 08-17-2020 COVID-19 (Moderna) Rachel Velez [facility]; [facility] Work Phone: 08-14-2020 COVID-Moderna (100 MCG/0.5 ML) Rachel Lo DO Work Phone: [facility]; [facility] Work Phone: 05-13-2020 influenza, injectabl e, quadrivalent, preservative free [facility] 05-13-2020 influenza, seasonal, injectable [facility] 05-09-2019 influenza, injectabl e, quadrivalent, preservative free [facility] 05-09-2019 influenza, seasonal, injectable [facility] 05-28-2018 influenza, injectabl e, quadrivalent, preservative free [facility] 05-28-2018 influenza, seasonal, injectable [facility] 05-11-2017 influenza, injectabl e, quadrivalent, preservative free [facility] 05-11-2017 influenza, seasonal, injectable [facility] 04-14-2017 influenza, seasonal, injectable Rachel Lo [facility] [employer] [facility] Work Phone: Comment on above: [facility] 05-12-2016 influenza, injectabl e, quadrivalent, preservative free [facility] 05-12-2016 influenza, seasonal, injectable [facility] 05-13-2015 influenza, injectabl e, quadrivalent, preservative free [facility] 05-13-2015 influenza, seasonal, injectable [facility] 05-22-2014 influenza, injectabl e, quadrivalent, preservative free [facility] 05-22-2014 influenza, seasonal, injectable [facility] 06-13-2013 Influenza virus vaccine [facility] Payers Date Payer Category Payer Self-pay [id number] 2022 Unknown [id number] 2016 Unknown [id number] 20 [id number] 2006 Unknown [id number] 1980 Unknown [id number] [id number] [id number] Unknown Unknown [id number] 2.16.8 [id number] Unknown [id number] 2.16.8 [id number] Unknown [id number] 2.16.8 [id number] Unknown [id number] 2.16.8 [id number] Unknown [id number] 2.16.8 [id number] Unknown [id number] 2.16.8 [id number] Unknown [id number] 2.16.8 [id number] Social History Date Type Detail Facility Caffeine Use Never smoker [facility] Work Phone: Comment on above: [employer] Full-time, [employer] [facility] [employer] , Lives with spouse Tobacco use: Never smoker. [facility] Work Phone: Comment on above: 01/04/12 Start: 08-24-2021 End: 11-02-2022 Tobacco smoking consumption unknown [facility] Tobacco use: Tobacco use: [facility]; [facility] Work Phone: Comment on above: 01/04/12 Start: 01-22-2020 Non-smoker [facility] Start: 1980 Sex Assigned At Female [facility] Start: 01-05-2024 Tobacco smoking status NHIS Never smoked tobacco (finding) [facility] Start: 11-07-2024 Sex Female (finding) [facility] Medical Equipment Procedure Code Equipment Code Equipment [...] FDA Start: 01-05-2024 Appendectomy, laparoscopic CLIP,[facility] [facility] FDA Start: 01-05-2024 Appendectomy, laparoscopic DRESSING,SURGICEL 4x8 [...] routinebacterial culture. PATIENT NOT FASTINGP ERFORMED BY: SHAILA [facility] [id number] [facility] [id number] Information: SRC:SP Evaluation note No assessment information availa [facility] Work Phone: Instructions Name Patient Instructions Indication:Tachycardia Start:15-Apr-2021 Instruction Type:Provider Instructions for Treatment How to Access Health Information Online using Patient Portal and [employer] Apps Indication:Tachycardia Start:15-Apr-2021 Instruction Type:Patient Education Patient Instructions Indication:Nonsmoker Start: Instruction Type:Provider Instructions for Treatment How to Access Health Information Online using Patient Portal and [employer] Apps Indication:Nonsmoker Start: Instruction Type:Patient Education Patient Instructions Indication:BMI 38.0-38.9,adult Start: Instruction Type:Provider Instructions for Treatment How to Access Health Information Online using Patient Portal and [employer] Apps Indication:BMI 38.0-38.9,adult Start: Instruction Type:Patient Education How to access [...] to access health information online Indication:Nonsmoker Start: 9 Instruction Type:Patient Education How to access health [...] tion Online using Patient Portal and [employer] Apps Indication:BMI 37.0-37.9, adult Start:24-Aug-2021 Instruction Type:Patient Education Patient Instructions Indication:Tachycardia Start:15-Apr-2021 Instruction Type:Provider Instructions for Treatment How to Access Health Informa tion Online using Patient Portal and [employer] Apps Indication:Tachycardia Start:15-Apr-2021 Instruction Type:Patient Education Patient Instructions Indication:Nonsmoker Start:11-Sep-2020 Instruction Type:Provider Instructions for Treatment How to Access Health Informa tion Online using Patient Portal and [employer] Apps Indication:Nonsmoker Start:11-Sep-2020 Instruction Type:Patient Education Patient Instructions Indication:BMI 38.0-38.9,adult Start:07-Sep-2020 Instruction Type:Provider Instructions for Treatment How to Access Health Informa tion Online using Patient Portal and [employer] Apps Indication:BMI 38.0-38.9,adult Start:07-Sep-2020 Instruction Type:Patient Education [...] tion Online using Patient Portal and [employer] Apps Indication:BMI 37.0-37.9, adult Start:24-Aug-2021 Instruction Type:Patient Education Patient Instructions Indication:Tachycardia Start:15-Apr-2021 Instruction Type:Provider Instructions for Treatment How to Access Health Informa tion Online using Patient Portal and [employer] Apps Indication:Tachycardia Start:15-Apr-2021 Instruction Type:Patient Education Patient Instructions Indication:Nonsmoker Start:11-Sep-2020 Instruction Type:Provider Instructions for Treatment How to Access Health Informa tion Online using Patient Portal and [employer] Apps Indication:Nonsmoker Start:11-Sep-2020 Instruction Type:Patient Education Patient Instructions Indication:BMI 38.0-38.9,adult Start:07-Sep-2020 Instruction Type:Provider Instructions for Treatment How to Access Health Informa tion Online using Patient Portal and [employer] Apps Indication:BMI 38.0-38.9,adult Start:07-Sep-2020 Instruction Type:Patient Education [...] Informa tion Online using Patient Portal and [employer] Apps Indication:BMI 37.0-37.9, adult Start:24-Aug-2021 Instruction Type:Patient Education Patient Instructions Indication:Tachycardia Start:15-Apr-2021 Instruction Type:Provider Instructions for Treatment How to Access Health Informa tion Online using Patient Portal and [employer] Apps Indication:Tachycardia Start:15-Apr-2021 Instruction Type:Patient Education Patient Instructions Indication:Nonsmoker Start:11-Sep-2020 Instruction Type:Provider Instructions for Treatment How to Access Health Informa tion Online using Patient Portal and [employer] Apps Indication:Nonsmoker Start:11-Sep-2020 Instruction Type:Patient Education Patient Instructions Indication:BMI 38.0-38.9,adult Start:07-Sep-2020 Instruction Type:Provider Instructions for Treatment How to Access Health Informa tion Online using Patient Portal and [employer] Apps Indication:BMI 38.0-38.9,adult Start:07-Sep-2020 Instruction Type:Patient Education [...] Informa tion Online using Patient Portal and [employer] Apps Indication:Non-smoker Start:09-May-2022 Instruction Type:Patient Education Patient Instructions Indication:BMI 37.0-37.9, adult Start:24-Aug-2021 Instruction Type:Provider Instructions for Treatment How to Access Health Informa tion Online using Patient Portal and [employer] Apps Indication:BMI 37.0-37.9, adult Start:24-Aug-2021 Instruction Type:Patient Education Patient Instructions Indication:Tachycardia Start:15-Apr-2021 Instruction Type:Provider Instructions for Treatment How to Access Health Informa tion Online using Patient Portal and [employer] Apps Indication:Tachycardia Start:15-Apr-2021 Instruction Type:Patient Education Patient Instructions Indication:Nonsmoker Start:11-Sep-2020 Instruction Type:Provider Instructions for Treatment How to Access Health Informa tion Online using Patient Portal and [employer] Apps Indication:Nonsmoker Start:11-Sep-2020 Instruction Type:Patient Education Patient Instructions Indication:BMI 38.0-38.9,adult Start:07-Sep-2020 Instruction Type:Provider Instructions for Treatment How to Access Health Informa tion Online using Patient Portal and [employer] Apps Indication:BMI 38.0-38.9,adult Start:07-Sep-2020 Instruction Type:Patient Education [...] tion Online using Patient Portal and [employer] Apps Indication:Non-smoker Start:09-May-2022 Instruction Type:Patient Education Patient Instructions Indication:BMI 37.0-37.9, adult Start:24-Aug-2021 Instruction Type:Provider Instructions for Treatment How to Access Health Informa tion Online using Patient Portal and [employer] Apps Indication:BMI 37.0-37.9, adult Start:24-Aug-2021 Instruction Type:Patient Education Patient Instructions Indication:Tachycardia Start:15-Apr-2021 Instruction Type:Provider Instructions for Treatment How to Access Health Informa tion Online using Patient Portal and [employer] Apps Indication:Tachycardia Start:15-Apr-2021 Instruction Type:Patient Education Patient Instructions Indication:Nonsmoker Start:11-Sep-2020 Instruction Type:Provider Instructions for Treatment How to Access Health Informa tion Online using Patient Portal and [employer] Apps Indication:Nonsmoker Start:11-Sep-2020 Instruction Type:Patient Education Patient Instructions Indication:BMI 38.0-38.9,adult Start:07-Sep-2020 Instruction Type:Provider Instructions for Treatment How to Access Health Informa tion Online using Patient Portal and [employer] Apps Indication:BMI 38.0-38.9,adult Start:07-Sep-2020 Instruction Type:Patient Education [...] tion Online using Patient Portal and [employer] Apps Indication:BMI 38.0-38.9,adult Start:11-Nov-2022 Instruction Type:Patient Education Patient Instructions Indication:Non-smoker Start:09-May-2022 Instruction Type:Provider Instructions for Treatment How to Access Health Informa tion Online using Patient Portal and [employer] Apps Indication:Non-smoker Start:09-May-2022 Instruction Type:Patient Education Patient Instructions Indication:BMI 37.0-37.9, adult Start:24-Aug-2021 Instruction Type:Provider Instructions for Treatment How to Access Health Informa tion Online using Patient Portal and [employer] Apps Indication:BMI 37.0-37.9, adult Start:24-Aug-2021 Instruction Type:Patient Education Patient Instructions Indication:Tachycardia Start:15-Apr-2021 Instruction Type:Provider Instructions for Treatment How to Access Health Informa tion Online using Patient Portal and [employer] Apps Indication:Tachycardia Start:15-Apr-2021 Instruction Type:Patient Education Patient Instructions Indication:Nonsmoker Start:11-Sep-2020 Instruction Type:Provider Instructions for Treatment How to Access Health Informa tion Online using Patient Portal and [employer] Apps Indication:Nonsmoker Start:11-Sep-2020 Instruction Type:Patient Education Patient Instructions Indication:BMI 38.0-38.9,adult Start:07-Sep-2020 Instruction Type:Provider Instructions for Treatment How to Access Health Informa tion Online using Patient Portal and [employer] Apps Indication:BMI 38.0-38.9,adult Start:07-Sep-2020 Instruction Type:Patient Education [...] tion Online using Patient Portal and [employer] Apps Indication:Bronchitis Start:25-Nov-2022 Instruction Type:Patient Education Patient Instructions Indication:BMI 38.0-38.9,adult Start:11-Nov-2022 Instruction Type:Provider Instructions for Treatment How to Access Health Informa tion Online using Patient Portal and [employer] Apps Indication:BMI 38.0-38.9,adult Start:11-Nov-2022 Instruction Type:Patient Education Patient Instructions Indication:Non-smoker Start:09-May-2022 Instruction Type:Provider Instructions for Treatment How to Access Health Informa tion Online using Patient Portal and [employer] Apps Indication:Non-smoker Start:09-May-2022 Instruction Type:Patient Education Patient Instructions Indication:BMI 37.0-37.9, adult Start:24-Aug-2021 Instruction Type:Provider Instructions for Treatment How to Access Health Informa tion Online using Patient Portal and [employer] Apps Indication:BMI 37.0-37.9, adult Start:24-Aug-2021 Instruction Type:Patient Education Patient Instructions Indication:Tachycardia Start:15-Apr-2021 Instruction Type:Provider Instructions for Treatment How to Access Health Informa tion Online using Patient Portal and [employer] Apps Indication:Tachycardia Start:15-Apr-2021 Instruction Type:Patient Education Patient Instructions Indication:Nonsmoker Start:11-Sep-2020 Instruction Type:Provider Instructions for Treatment How to Access Health Informa tion Online using Patient Portal and [employer] Apps Indication:Nonsmoker Start:11-Sep-2020 Instruction Type:Patient Education Patient Instructions Indication:BMI 38.0-38.9,adult Start:07-Sep-2020 Instruction Type:Provider Instructions for Treatment How to Access Health Informa tion Online using Patient Portal and [employer] Apps Indication:BMI 38.0-38.9,adult Start:07-Sep-2020 Instruction Type:Patient Education [...] tion Online using Patient Portal and [employer] Apps Indication:Bronchitis Start:25-Nov-2022 Instruction Type:Patient Education Patient Instructions Indication:BMI 38.0-38.9,adult Start:11-Nov-2022 Instruction Type:Provider Instructions for Treatment How to Access Health Informa tion Online using Patient Portal and [employer] Indication:BMI 38.0-38.9,adult Start:11-Nov-2022 Instruction Type:Patient Education Patient Instructions Indication:Non-smoker Start:09-May-2022 Instruction Type:Provider Instructions for Treatment How to Access Health Informa tion Online using Patient Portal and [employer] Apps Indication:Non-smoker Start:09-May-2022 Instruction Type:Patient Education Patient Instructions Indication:BMI 37.0-37.9, adult Start:24-Aug-2021 Instruction Type:Provider Instructions for Treatment How to Access Health Informa tion Online using Patient Portal and [employer] Apps Indication:BMI 37.0-37.9, adult Start:24-Aug-2021 Instruction Type:Patient Education Patient Instructions Indication:Tachycardia Start:15-Apr-2021 Instruction Type:Provider Instructions for Treatment How to Access Health Informa tion Online using Patient Portal and [employer] Apps Indication:Tachycardia Start:15-Apr-2021 Instruction Type:Patient Education Patient Instructions Indication:Nonsmoker Start:11-Sep-2020 Instruction Type:Provider Instructions for Treatment How to Access Health Informa tion Online using Patient Portal and [employer] Apps Indication:Nonsmoker Start:11-Sep-2020 Instruction Type:Patient Education Patient Instructions Indication:BMI 38.0-38.9,adult Start:07-Sep-2020 Instruction Type:Provider Instructions for Treatment How to Access Health Informa tion Online using Patient Portal and [employer] Apps Indication:BMI 38.0-38.9,adult Start:07-Sep-2020 Instruction Type:Patient Education [...] tion Online using Patient Portal and [employer] Apps Indication:Obesity Start:15-Dec-2022 Instruction Type:Patient Education Patient Instructions Indication:Bronchitis Start:25-Nov-2022 Instruction Type:Provider Instructions for Treatment How to Access Health Informa tion Online using Patient Portal and [employer] Apps Indication:Bronchitis Start:25-Nov-2022 Instruction Type:Patient Education Patient Instructions Indication:BMI 38.0-38.9,adult Start:11-Nov-2022 Instruction Type:Provider Instructions for Treatment How to Access Health Informa tion Online using Patient Portal and [employer] Apps Indication:BMI 38.0-38.9,adult Start:11-Nov-2022 Instruction Type:Patient Education Patient Instructions Indication:Non-smoker Start:09-May-2022 Instruction Type:Provider Instructions for Treatment How to Access Health Informa tion Online using Patient Portal and [employer] Apps Indication:Non-smoker Start:09-May-2022 Instruction Type:Patient Education Patient Instructions Indication:BMI 37.0-37.9, adult Start:24-Aug-2021 Instruction Type:Provider Instructions for Treatment How to Access Health Informa tion Online using Patient Portal and [employer] Apps Indication:BMI 37.0-37.9, adult Start:24-Aug-2021 Instruction Type:Patient Education Patient Instructions Indication:Tachycardia Start:15-Apr-2021 Instruction Type:Provider Instructions for Treatment How to Access Health Informa tion Online using Patient Portal and [employer] Apps Indication:Tachycardia Start:15-Apr-2021 Instruction Type:Patient Education Patient Instructions Indication:Nonsmoker Start:11-Sep-2020 Instruction Type:Provider Instructions for Treatment How to Access Health Informa tion Online using Patient Portal and [employer] Apps Indication:Nonsmoker Start:11-Sep-2020 Instruction Type:Patient Education Patient Instructions Indication:BMI 38.0-38.9,adult Start:07-Sep-2020 Instruction Type:Provider Instructions for Treatment How to Access Health Informa tion Online using Patient Portal and [employer] Apps Indication:BMI 38.0-38.9,adult Start:07-Sep-2020 Instruction Type:Patient Education [...] tion Online using Patient Portal and [employer] Apps Indication:Obesity Start:15-Dec-2022 Instruction Type:Patient Education Patient Instructions Indication:Bronchitis Start:25-Nov-2022 Instruction Type:Provider Instructions for Treatment How to Access Health Informa tion Online using Patient Portal and [employer] Apps Indication:Bronchitis Start:25-Nov-2022 Instruction Type:Patient Education Patient Instructions Indication:BMI 38.0-38.9,adult Start:11-Nov-2022 Instruction Type:Provider Instructions for Treatment How to Access Health Informa tion Online using Patient Portal and [employer] Apps Indication:BMI 38.0-38.9,adult Start:11-Nov-2022 Instruction Type:Patient Education Patient Instructions Indication:Non-smoker Start:09-May-2022 Instruction Type:Provider Instructions for Treatment How to Access Health Informa tion Online using Patient Portal and [employer] Apps Indication:Non-smoker Start:09-May-2022 Instruction Type:Patient Education Patient Instructions Indication:BMI 37.0-37.9, adult Start:24-Aug-2021 Instruction Type:Provider Instructions for Treatment How to Access Health Informa tion Online using Patient Portal and [employer] Apps Indication:BMI 37.0-37.9, adult Start:24-Aug-2021 Instruction Type:Patient Education Patient Instructions Indication:Tachycardia Start:15-Apr-2021 Instruction Type:Provider Instructions for Treatment How to Access Health Informa tion Online using Patient Portal and [employer] Apps Indication:Tachycardia Start:15-Apr-2021 Instruction Type:Patient Education Patient Instructions Indication:Nonsmoker Start:11-Sep-2020 Instruction Type:Provider Instructions for Treatment How to Access Health Informa tion Online using Patient Portal and [employer] Apps Indication:Nonsmoker Start:11-Sep-2020 Instruction Type:Patient Education Patient Instructions Indication:BMI 38.0-38.9,adult Start:07-Sep-2020 Instruction Type:Provider Instructions for Treatment How to Access Health Informa tion Online using Patient Portal and [employer] Apps Indication:BMI 38.0-38.9,adult Start:07-Sep-2020 Instruction Type:Patient Education [...] tion Online using Patient Portal and [employer] Apps Indication:Obesity Start:15-Dec-2022 Instruction Type:Patient Education Patient Instructions Indication:Bronchitis Start:25-Nov-2022 Instruction Type:Provider Instructions for Treatment How to Access Health Informa tion Online using Patient Portal and [employer] Apps Indication:Bronchitis Start:25-Nov-2022 Instruction Type:Patient Education Patient Instructions Indication:BMI 38.0-38.9,adult Start:11-Nov-2022 Instruction Type:Provider Instructions for Treatment How to Access Health Informa tion Online using Patient Portal and [employer] Apps Indication:BMI 38.0-38.9,adult Start:11-Nov-2022 Instruction Type:Patient Education Patient Instructions Indication:Non-smoker Start:09-May-2022 Instruction Type:Provider Instructions for Treatment How to Access Health Informa tion Online using Patient Portal and [employer] Apps Indication:Non-smoker Start:09-May-2022 Instruction Type:Patient Education Patient Instructions Indication:BMI 37.0-37.9, adult Start:24-Aug-2021 Instruction Type:Provider Instructions for Treatment How to Access Health Informa tion Online using Patient Portal and [employer] Apps Indication:BMI 37.0-37.9, adult Start:24-Aug-2021 Instruction Type:Patient Education Patient Instructions Indication:Tachycardia Start:15-Apr-2021 Instruction Type:Provider Instructions for Treatment How to Access Health Informa tion Online using Patient Portal and [employer] Apps Indication:Tachycardia Start:15-Apr-2021 Instruction Type:Patient Education Patient Instructions Indication:Nonsmoker Start:11-Sep-2020 Instruction Type:Provider Instructions for Treatment How to Access Health Informa tion Online using Patient Portal and [employer] Apps Indication:Nonsmoker Start:11-Sep-2020 Instruction Type:Patient Education Patient Instructions Indication:BMI 38.0-38.9,adult Start:07-Sep-2020 Instruction Type:Provider Instructions for Treatment How to Access Health Informa tion Online using Patient Portal and [employer] Apps Indication:BMI 38.0-38.9,adult Start:07-Sep-2020 Instruction Type:Patient Education [...] Informa tion Online using Patient Portal and [employer] Apps Indication:Non-smoker Start:19-Jan-2023 Instruction Type:Patient Education Patient Instructions Indication:Non-smoker Start:04-Jan-2023 Instruction Type:Provider Instructions for Treatment How to Access Health Informa tion Online using Patient Portal and [employer] Apps Indication:Non-smoker Start:04-Jan-2023 Instruction Type:Patient Education Patient Instructions Indication:Obesity Start:15-Dec-2022 Instruction Type:Provider Instructions for Treatment How to Access Health Informa tion Online using Patient Portal and [employer] Apps Indication:Obesity Start:15-Dec-2022 Instruction Type:Patient Education Patient Instructions Indication:Bronchitis Start:25-Nov-2022 Instruction Type:Provider Instructions for Treatment How to Access Health Informa tion Online using Patient Portal and [employer] Apps Indication:Bronchitis Start:25-Nov-2022 Instruction Type:Patient Education Patient Instructions Indication:BMI 38.0-38.9,adult Start:11-Nov-2022 Instruction Type:Provider Instructions for Treatment How to Access Health Informa tion Online using Patient Portal and [employer] Apps Indication:BMI 38.0-38.9,adult Start:11-Nov-2022 Instruction Type:Patient Education Patient Instructions Indication:Non-smoker Start:09-May-2022 Instruction Type:Provider Instructions for Treatment How to Access Health Informa tion Online using Patient Portal and [employer] Apps Indication:Non-smoker Start:09-May-2022 Instruction Type:Patient Education Patient Instructions Indication:BMI 37.0-37.9, adult Start:24-Aug-2021 Instruction Type:Provider Instructions for Treatment How to Access Health Informa tion Online using Patient Portal and [employer] Apps Indication:BMI 37.0-37.9, adult Start:24-Aug-2021 Instruction Type:Patient Education Patient Instructions Indication:Tachycardia Start:15-Apr-2021 Instruction Type:Provider Instructions for Treatment How to Access Health Informa tion Online using Patient Portal and [employer] Apps Indication:Tachycardia Start:15-Apr-2021 Instruction Type:Patient Education Patient Instructions Indication:Nonsmoker Start:11-Sep-2020 Instruction Type:Provider Instructions for Treatment How to Access Health Informa tion Online using Patient Portal and [employer] Apps Indication:Nonsmoker Start:11-Sep-2020 Instruction Type:Patient Education Patient Instructions Indication:BMI 38.0-38.9,adult Start:07-Sep-2020 Instruction Type:Provider Instructions for Treatment How to Access Health Informa tion Online using Patient Portal and [employer] Indication:BMI 38.0-38.9,adult Start:07-Sep-2020 Instruction Type:Patient Education [...] tion Online using Patient Portal and [employer] Apps Indication:BMI 36.0-36.9,adult Start:30-Jan-2023 Instruction Type:Patient Education Patient Instructions Indication:Non-smoker Start:19-Jan-2023 Instruction Type:Provider Instructions for Treatment How to Access Health Informa tion Online using Patient Portal and [employer] Apps Indication:Non-smoker Start:19-Jan-2023 Instruction Type:Patient Education Patient Instructions Indication:Non-smoker Start:04-Jan-2023 Instruction Type:Provider Instructions for Treatment How to Access Health Informa tion Online using Patient Portal and [employer] Apps Indication:Non-smoker Start:04-Jan-2023 Instruction Type:Patient Education Patient Instructions Indication:Obesity Start:15-Dec-2022 Instruction Type:Provider Instructions for Treatment How to Access Health Informa tion Online using Patient Portal and [employer] Apps Indication:Obesity Start:15-Dec-2022 Instruction Type:Patient Education Patient Instructions Indication:Bronchitis Start:25-Nov-2022 Instruction Type:Provider Instructions for Treatment How to Access Health Informa tion Online using Patient Portal and [employer] Apps Indication:Bronchitis Start:25-Nov-2022 Instruction Type:Patient Education Patient Instructions Indication:BMI 38.0-38.9,adult Start:11-Nov-2022 Instruction Type:Provider Instructions for Treatment How to Access Health Informa tion Online using Patient Portal and [employer] Apps Indication:BMI 38.0-38.9,adult Start:11-Nov-2022 Instruction Type:Patient Education Patient Instructions Indication:Non-smoker Start:09-May-2022 Instruction Type:Provider Instructions for Treatment How to Access Health Informa tion Online using Patient Portal and [employer] Apps Indication:Non-smoker Start:09-May-2022 Instruction Type:Patient Education Patient Instructions Indication:BMI 37.0-37.9, adult Start:24-Aug-2021 Instruction Type:Provider Instructions for Treatment How to Access Health Informa tion Online using Patient Portal and [employer] Indication:BMI 37.0-37.9, adult Start:24-Aug-2021 Instruction Type:Patient Education Patient Instructions Indication:Tachycardia Start:15-Apr-2021 Instruction Type:Provider Instructions for Treatment How to Access Health Informa tion Online using Patient Portal and [employer] Apps Indication:Tachycardia Start:15-Apr-2021 Instruction Type:Patient Education Patient Instructions Indication:Nonsmoker Start:11-Sep-2020 Instruction Type:Provider Instructions for Treatment How to Access Health Informa tion Online using Patient Portal and [employer] Apps Indication:Nonsmoker Start:11-Sep-2020 Instruction Type:Patient Education Patient Instructions Indication:BMI 38.0-38.9,adult Start:07-Sep-2020 Instruction Type:Provider Instructions for Treatment How to Access Health Informa tion Online using Patient Portal and [employer] Apps Indication:BMI 38.0-38.9,adult Start:07-Sep-2020 Instruction Type:Patient Education [...] tion Online using Patient Portal and [employer] Apps Indication:Non-smoker Start:27-Feb-2023 Instruction Type:Patient Education Patient Instructions Indication:BMI 36.0-36.9,adult Start:30-Jan-2023 Instruction Type:Provider Instructions for Treatment How to Access Health Informa tion Online using Patient Portal and [employer] Apps Indication:BMI 36.0-36.9,adult Start:30-Jan-2023 Instruction Type:Patient Education Patient Instructions Indication:Non-smoker Start:19-Jan-2023 Instruction Type:Provider Instructions for Treatment How to Access Health Informa tion Online using Patient Portal and [employer] Apps Indication:Non-smoker Start:19-Jan-2023 Instruction Type:Patient Education Patient Instructions Indication:Non-smoker Start:04-Jan-2023 Instruction Type:Provider Instructions for Treatment How to Access Health Informa tion Online using Patient Portal and [employer] Apps Indication:Non-smoker Start:04-Jan-2023 Instruction Type:Patient Education Patient Instructions Indication:Obesity Start:15-Dec-2022 Instruction Type:Provider Instructions for Treatment How to Access Health Informa tion Online using Patient Portal and [employer] Apps Indication:Obesity Start:15-Dec-2022 Instruction Type:Patient Education Patient Instructions Indication:Bronchitis Start:25-Nov-2022 Instruction Type:Provider Instructions for Treatment How to Access Health Informa tion Online using Patient Portal and [employer] Apps Indication:Bronchitis Start:25-Nov-2022 Instruction Type:Patient Education Patient Instructions Indication:BMI 38.0-38.9,adult Start:11-Nov-2022 Instruction Type:Provider Instructions for Treatment How to Access Health Informa tion Online using Patient Portal and [employer] Indication:BMI 38.0-38.9,adult Start:11-Nov-2022 Instruction Type:Patient Education Patient Instructions Indication:Non-smoker Start:09-May-2022 Instruction Type:Provider Instructions for Treatment How to Access Health Informa tion Online using Patient Portal and [employer] Indication:Non-smoker Start:09-May-2022 Instruction Type:Patient Education Patient Instructions Indication:BMI 37.0-37.9, adult Start:24-Aug-2021 Instruction Type:Provider Instructions for Treatment How to Access Health Informa tion Online using Patient Portal and [employer] Indication:BMI 37.0-37.9, adult Start:24-Aug-2021 Instruction Type:Patient Education Patient Instructions Indication:Tachycardia Start:15-Apr-2021 Instruction Type:Provider Instructions for Treatment How to Access Health Informa tion Online using Patient Portal and [employer] Apps Indication:Tachycardia Start:15-Apr-2021 Instruction Type:Patient Education Patient Instructions Indication:Nonsmoker Start:11-Sep-2020 Instruction Type:Provider Instructions for Treatment How to Access Health Informa tion Online using Patient Portal and [employer] Apps Indication:Nonsmoker Start:11-Sep-2020 Instruction Type:Patient Education Patient Instructions Indication:BMI 38.0-38.9,adult Start:07-Sep-2020 Instruction Type:Provider Instructions for Treatment How to Access Health Informa tion Online using Patient Portal and [employer] Apps Indication:BMI 38.0-38.9,adult Start:07-Sep-2020 Instruction Type:Patient Education [...] tion Online using Patient Portal and [employer] Apps Indication:Non-smoker Start:28-Apr-2023 Instruction Type:Patient Education Patient Instructions Indication:Non-smoker Start:28-Apr-2023 Instruction Type:Provider Instructions for Treatment Patient Instructions Indication:Non-smoker Start:27-Feb-2023 Instruction Type:Provider Instructions for Treatment How to Access Health Informa tion Online using Patient Portal and [employer] Apps Indication:Non-smoker Start:27-Feb-2023 Instruction Type:Patient Education Patient Instructions Indication:BMI 36.0-36.9,adult Start:30-Jan-2023 Instruction Type:Provider Instructions for Treatment How to Access Health Informa tion Online using Patient Portal and [employer] Indication:BMI 36.0-36.9,adult Start:30-Jan-2023 Instruction Type:Patient Education Patient Instructions Indication:Non-smoker Start:19-Jan-2023 Instruction Type:Provider Instructions for Treatment How to Access Health Informa tion Online using Patient Portal and [employer] Indication:Non-smoker Start:19-Jan-2023 Instruction Type:Patient Education Patient Instructions Indication:Non-smoker Start:04-Jan-2023 Instruction Type:Provider Instructions for Treatment How to Access Health Informa tion Online using Patient Portal and [employer] Indication:Non-smoker Start:04-Jan-2023 Instruction Type:Patient Education Patient Instructions Indication:Obesity Start:15-Dec-2022 Instruction Type:Provider Instructions for Treatment How to Access Health Informa tion Online using Patient Portal and [employer] Apps Indication:Obesity Start:15-Dec-2022 Instruction Type:Patient Education Patient Instructions Indication:Bronchitis Start:25-Nov-2022 Instruction Type:Provider Instructions for Treatment How to Access Health Informa tion Online using Patient Portal and [employer] Indication:Bronchitis Start:25-Nov-2022 Instruction Type:Patient Education Patient Instructions Indication:BMI 38.0-38.9,adult Start:11-Nov-2022 Instruction Type:Provider Instructions for Treatment How to Access Health Informa tion Online using Patient Portal and [employer] Indication:BMI 38.0-38.9,adult Start:11-Nov-2022 Instruction Type:Patient Education Patient Instructions Indication:Non-smoker Start:09-May-2022 Instruction Type:Provider Instructions for Treatment How to Access Health Informa tion Online using Patient Portal and [employer] Indication:Non-smoker Start:09-May-2022 Instruction Type:Patient Education Patient Instructions Indication:BMI 37.0-37.9, adult Start:24-Aug-2021 Instruction Type:Provider Instructions for Treatment How to Access Health Informa tion Online using Patient Portal and [employer] Indication:BMI 37.0-37.9, adult Start:24-Aug-2021 Instruction Type:Patient Education Patient Instructions Indication:Tachycardia Start:15-Apr-2021 Instruction Type:Provider Instructions for Treatment How to Access Health Informa tion Online using Patient Portal and [employer] Indication:Tachycardia Start:15-Apr-2021 Instruction Type:Patient Education Patient Instructions Indication:Nonsmoker Start:11-Sep-2020 Instruction Type:Provider Instructions for Treatment How to Access Health Informa tion Online using Patient Portal and [employer] Apps Indication:Nonsmoker Start:11-Sep-2020 Instruction Type:Patient Education Patient Instructions Indication:BMI 38.0-38.9,adult Start:07-Sep-2020 Instruction Type:Provider Instructions for Treatment How to Access Health Informa tion Online using Patient Portal and [employer] Indication:BMI 38.0-38.9,adult Start:07-Sep-2020 Instruction Type:Patient Education [...] for referral (narrative)No reason for referral information availableWCher[facility] Work Phone: Instructions Name Dates Details Nonsmoker [...] tion Online using Patient Portal and [employer] Indication:Nonsmoker Start:11-Sep-2020 Instruction Type:Patient Education Patient Instructions Indication:BMI 38.0-38.9,adult Start:07-Sep-2020 Instruction Type:Provider Instructions for Treatment How to Access Health Informa tion Online using Patient Portal and [employer] Apps Indication:BMI 38.0-38.9,adult Start:07-Sep-2020 Instruction Type:Patient Education [...] Records Found Name Dates Details Immunization Registry [place] - Effective on 06/16/2017. Expiration date unspecified Effective:16-Jun-2017 Name Dates Details Immunization Registry [place] - Effective on 06/16/2017. Expiration date unspecified Effective:16-Jun-2017 Name Dates Details Immunization Registry [place] - Effective on 06/16/2017. Expiration date unspecified Effective:16-Jun-2017 Name Dates Details Immunization Registry [place] - Effective on 06/16/2017. Expiration date unspecified Effective:16-Jun-2017 Name Dates Details Immunization Registry [place] - Effective on 06/16/2017. Expiration date unspecified Effective:16-Jun-2017 Name Dates Details Immunization Registry [place] - Effective on 06/16/2017. Expiration date unspecified Effective:16-Jun-2017 Name Dates Details Immunization Registry [place] - Effective on 06/16/2017. Expiration date unspecified Effective:16-Jun-2017 Name Dates Details Immunization Registry [place] - Effective on 06/16/2017. Expiration date unspecified Effective:16-Jun-2017 Name Dates Details Immunization Registry [place] - Effective on 06/16/2017. Expiration date unspecified Effective:16-Jun-2017 Name Dates Details Immunization Registry [place] - Effective on 06/16/2017. Expiration date unspecified Effective:16-Jun-2017 Name Dates Details Immunization Registry [place] - Effective on 06/16/2017. Expiration date unspecified Effective:16-Jun-2017 Name Dates Details Immunization Registry [place] - Effective on 06/16/2017. Expiration date unspecified Effective:16-Jun-2017 Advance Directive Response Recorded Date/ Time Living Will Yes June 15 12:15pm Power of City Detective Yes June 15, 2021 12:15pm Name Dates Details Immunization Registry [place] - Effective on 06/16/2017. Expiration date unspecified Effective:16-Jun-2017 Name Dates Details Immunization Registry [place] - Effective on 06/16/2017. Expiration date unspecified Effective:16-Jun-2017 Name Dates Details Immunization Registry [place] - Effective on 06/16/2017. Expiration date unspecified Effective:16-Jun-2017 Name Dates Details Immunization Registry [place] - Effective on 06/16/2017. Expiration date unspecified Effective:16-Jun-2017 Name Dates Details Immunization Registry [place] - Effective on 06/16/2017. Expiration date unspecified Effective:16-Jun-2017 Name Dates Details Immunization Registry [place] - Effective on 06/16/2017. Expiration date unspecified Effective:16-Jun-2017 Name Dates Details Immunization Registry [place] - Effective on 06/16/2017. Expiration date unspecified Effective:16-Jun-2017 Name Dates Details Immunization Registry [place] - Effective on 06/16/2017. Expiration date unspecified Effective:16-Jun-2017 Name Dates Details Immunization Registry [place] - Effective on 06/16/2017. Expiration date unspecified Effective:16-Jun-2017 Name Dates Details Immunization Registry [place] - Effective on 06/16/2017. Expiration date unspecified Effective:16-Jun-2017 Name Dates Details Immunization Registry [place] - Effective on 06/16/2017. Expiration date unspecified Effective:16-Jun-2017 Name Dates Details Immunization Registry [place] - Effective on 06/16/2017. Expiration date unspecified Effective:16-Jun-2017 Name Dates Details Immunization [facility] [place] - Effective on 06/16/2017. Expiration date unspecified Effective:16-Jun-2017 Name Dates Details Immunization [facility] [place] - Effective on 06/16/2017. Expiration date unspecified [...] section and content) DATE CREATED AUTHOR 05/05/2021 [facility] DATE CREATED AUTHOR AUTHOR'S ORGANIZ ATION 12/16/2022 [facility] DATE CREATED AUTHOR AUTHOR'S ORGANIZ ATION 04/09/2025 [facility] Goals (unrecognized section and content) Goals may [...] BE BASED ON THE PRIMARY CLINICAL RECORDS. [facility] [employer] [facility]. provides no warranty or guarantee of the accuracy or completeness of information in this document.
== END | disposition home or self-care (01) ==
LOC: US 06:22
PROVIDERS: PCP Internal Medicine; Referring Provider Internal Medicine; Visit Provider Internal Medicine
DX: R74.8 Abnormal levels of other serum enzymes (principal)
CPT/HCPCS: 76705; 76981

== ENCOUNTER → 2025-05-27 | Outpatient (CLI) | payer OTHER, SELFPAY ==
[2025-05-27 09:32] LABS: Hematocrit 36.7 % (37-47); Hemoglobin 12.5 g/dL (12.0-15.0); Immature Granulocytes Count 0.030 X10^3/uL (0.0-0.0); Mean Corp Hgb Conc 34.1 g/dL (32-36); Mean Corpuscular Volume 88.6 fL (81-99); Mean Platelet Vol. 10.6 fl (6.2-12.0); NRBC Flagged by Analyzer 0 % (0-5); Platelet Count 253 K/mm3 (150-450); RBC Distribution Width CV 11.9 % (11.6-14.6); RBC Distribution Width SD 38.4 fl (35.1-43.9); Red Blood Count 4.14 M/mm3 (4.2-5.4); White Blood Count 6.1 K/mm3 (4.4-11.0)
[2025-05-27 09:43] LABS: Prothrombin Time (Protime)PT. 13.3 SECONDS (11.7-14.9)
[2025-05-27 10:14] LABS: AST(SGOT) 53 U/L (<=31); Alanine Aminotransfer ALT/SGPT 25 U/L (<=34); Albumin, Serum 4.2 g/dL (3.5-5.0); Alkaline Phosphatase 52 U/L (35-104); Anion Gap 10 (5-15); BUN 12 mg/dL (4-19); BUN/Creat Ratio 16.4 RATIO (10-20); Bilirubin, Direct 0.14 mg/dL (0.00-0.30); Calcium,Total 9.3 mg/dL (7.6-11.0); Carbon Dioxide 21.3 mmol/L (21.0-32.0); Chloride 106 mmol/L (98-108); Cholesterol 194 mg/dL (<=200); Ferritin 171 ng/mL (22-378); Globulin 3.0 g/dL (2.2-4.2); Glucose 92 mg/dL (70-99); Low Density Lipoprotein Calc. 129 mg/dL; Potassium 4.1 mmol/L (3.3-5.1); Triglycerides 95 mg/dL; Very Low Density Lipoprotein 19 mg/dL (5-40); cholesterol:hdl ratio screen 4.19
[2025-05-27 10:42] LABS: CRP 3.08 mg/L (0.0-3.0); Iron 86 ug/dL (50-170); Iron Binding Capacity,Total 294 ug/dL (250-450); Iron Binding Capacity,Unsat 208 ug/dL (228-428)
[2025-05-28 13:08] LABS: Anti-Smooth Muscle ABS 8 Units (0-19)
[2025-05-28 14:09] LABS: ANTINUCLEAR ANTIBODIES DIRECT Negative (Negative)
== END | disposition home or self-care (01) ==
PROVIDERS: PCP Internal Medicine; Referring Provider Internal Medicine; Visit Provider Internal Medicine
DX: K75.81 Nonalcoholic steatohepatitis (NASH) (principal)
CPT/HCPCS: 36415; 80053; 80061; 82248; 82390; 82728; 83036; 83516; 83540; 83550; 85025; 85610; 86038; 86140; 86225; 86709